=== PATIENT | male | born 1965 | race Caucasian/White ===

== ENCOUNTER 2018-02-17 19:43 | Emergency (ER) | payer SELFPAY ==
[2018-02-17 19:44] VITALS: BP 181/84; PULSE 104; RESP 22; TEMP 36.2; O2SAT 98; BMI 36.2
[2018-02-17 20:40] VITALS: BP 175/89; PULSE 94; RESP 18; O2SAT 97
--- NOTE | 2018-02-17 20:50 | RAD_ITS ---
STUDY: X-RAY CHEST REASON FOR EXAM: Male, 52 years old. Chest pain TECHNIQUE: AP portable COMPARISON: None. FINDINGS: Lungs are hyperinflated. There appear to be mild increase in interstitial markings at both lung bases. There is questionable nodule in the right upper lobe measuring 6 x 5 mm although this may represent bony density related to the overlying rib. There is no demonstrated pleural abnormality. Normal size heart. Normal mediastinum and tang. Normal visualized pulmonary arteries. Normal visualized aortic arch and descending thoracic aorta. Normal visualized thoracic spine. Normal visualized ribs, clavicles, and shoulders. There is no demonstrated abnormality of the visualized soft tissue structures of the upper abdomen. RAD/Chest 1 View (Portable) IMPRESSION: COPD. No acute cardiopulmonary pathology. Cannot exclude small subcentimeter nodule in right upper lobe versus rib lesion.. CT would be helpful for further assessment if clinically warranted Electronically Signed: Walter Daniels MD at 21:52 EDT , Service support ,
[2018-02-17] MEDS: Ipratropium/Albuterol Sulfate 3 ML AMPUL.NEB INHALATION (21:03)
[2018-02-17 21:04] LABS: Absolute Lymphocyte Count 2.26 X10^3/ul (0.83-4.51); Absolute Neutrophil Count 4.6 X10^3/uL (2.0-7.7); Basophil# 0.03 X10^3/uL; Basophil% 0.4 % (0-1); Eosinophil# 0.42 X10^3/uL; Eosinophils% 5.2 % (0-5); Hematocrit 47.5 % (40-54); Hemoglobin 15.6 g/dl (13.0-16.5); Lymphocyte # 2.26 X10^3/ul (4.0); Lymphocyte % 27.8 % (19-41); Mean Corp Hgb Conc 32.8 g/gl (32-36); Mean Corpuscular Volume 94.4 fL (80-94); Mean Platelet Vol. 11.8 fl (6.2-12.0); Monocyte# 0.78 X10^3/uL; Monocyte% 9.6 % (0-10); Neutrophil # 4.59 X10^3/uL (2.7-7.7); Neutrophil % 56.4 % (47-70); Platelet Count 216 K/mm3 (150-450); RBC Distribution Width CV 12.5 % (11.6-14.6); RBC Distribution Width SD 42.9 fl (35.1-43.9); Red Blood Count 5.03 M/mm3 (4.6-6.2); White Blood Count 8.1 K/mm3 (4.4-11.0)
[2018-02-17 21:05] LABS: POSITIVE COUNT NO; POSITIVE DIFFERENTIAL NO; POSITIVE MORPHOLOGY NO
[2018-02-17 21:06] VITALS: PULSE 96; RESP 14
[2018-02-17 21:10] VITALS: BP 169/92; PULSE 94; RESP 20; O2SAT 95
[2018-02-17] MEDS: 0.9% Normal Saline 1,000 ML 150 ML IV (21:10)
[2018-02-17 21:22] LABS: D-Dimer Quantitative (DVT/PE) 0.51 FEU/ug/m (0.27-0.49)
--- NOTE | 2018-02-17 21:24 | ED.RN ---
notified Dr. Villafana of elevated d-dimer
[2018-02-17 21:25] LABS: Anion Gap 9 (5-15); BUN 11 mg/dL (7-18); BUN/Creat Ratio 10.3 RATIO (10-20); Calcium,Total 9.3 mg/dL (8.5-10.1); Chloride 109 mmol/L (98-107); Creatinine, Serum 1.07 mg/dL (0.70-1.30); EST Glomerular Filtration Rate 77 mL/min (>60); Est Glom Filt Rate - Afr Amer 93 mL/min (>60); Estimated Creatinine Clearance 86.01 ml/min; Glucose 128 mg/dL (74-106); Potassium 4.1 mmol/L (3.5-5.1); Sodium Level 143 mmol/L (136-145)
[2018-02-17 22:02] LABS: BNP,B-Type NATRIURETIC PEPTIDE 5.3 pg/mL (0-100)
--- NOTE | 2018-02-17 22:25 | ED.VISSUMM ---
- ER Visit Summary Date of Service: 02/17/18 Chief Complaint: [Breath] History of Present Illness: The patient is a 52 M [presents to the emergency department complaint of shortness of breath that started 3 or 4 weeks ago. Patient states that he is waking up in the middle night feeling short of breath and he has to run outside to try to breathe. Patient has been having some chest discomfort that has been chronic and continuous in the left side of his chest that feels like soreness that he has had years. Patient complains of shortness of breath with activity and exertion. Patient also states that he has a history of sleep apnea but has claustrophobia and cannot tolerate the CPAP machine. Patient also has a brother that several months ago when he is been anxious due to that. Patient unable to sleep at night which makes him irritable. He does have a history of pulmonary hypertension. Patient currently does not see a primary care physician or extension service specialist in charge. Patient denies any fever or recent illness. He denies recent travel or surgery.] Physical Examination: [HEENT-PERRLA, EOMI. Cranial nerves II through XII grossly intact. TMs clear. Mucous membranes moist. No adenopathy. Cardiovascular-regular rate and rhythm without murmur or ectopy Lungs-clear to auscultation, chest wall stable without crepitus or subcu emphysema Abdomen-normoactive bowel sounds, soft, nontender, no rebound or rigidity, no peritoneal signs. Extremities-intact ?4, normal range of motion, normal pulses, atraumatic] Test Results: [EKG obtained arrival shows sinus rhythm with a ventricular rate of 93 bpm with no acute ST segment changes. CBC with differential showed a white count of 8.1, hemoglobin 15.6, hematocrit 47, platelets 216. Chemistries unremarkable. BUN was 11 and creatinine was 1.07. Troponin was less than 0.015. BNP was 5.3. D-dimer was 0.51 which is normal when corrected for age. Chest x-ray showed COPD and cannot exclude small subcentimeter nodule in the right lower upper lobe versus a rib lesion. CT would be helpful for further assessment if clinically warranted. Patient and I discussed obtaining a CT scan of his chest however he is refusing being that he is claustrophobic and does not want had a CT scan done at this time.] Emergency Department Course and Treatment: [I had a long discussion with patient and his . The believes that the patient's sleep apnea is the culprit of why he is waking up feeling short of breath and that he panics and runs out the door. Patient would like something for sleep. He does not want to be admitted at this time for further workup such as stress testing to evaluate further his exertional dyspnea. Patient understands I cannot completely rule out cardiac etiology for his symptomatology. My suspicion however is that his symptoms are related to sleep apnea and anxiety. Treatment Plan: [Patient will be given a prescription for Ativan as needed for anxiety. Patient will be given a referral to primary care physician.] Disposition: Discharged home in stable condition [] Impression: [Dyspnea Anxiety] This note was generated with Qello dictation software. It may contain incorrect words, spelling, and punctuation that were not noted in review of the chart prior to signing ED Disposition - Plan for ED Patient: Chief Complaint: Shortness of Breath Referrals: Care Physician,No Primary [Primary Care Provider] -
--- NOTE | 2018-02-17 22:29 | ED.DEP ---
ED Disposition - Plan for ED Patient: Chief Complaint: Shortness of Breath Instructions: ED Dyspnea Shortness of Breath, ED Stress React Prescriptions: Lorazepam [Ativan] 1 mg PO TID PRN #10 tab PRN Reason: Anxiety Referrals: Care Physician,No Primary [Primary Care Provider] - Ani Hartman MD [COURTESY STAFF PHYSICIAN] - 3-5 Days
[2018-02-17] MEDS: LORazepam 1 MG Tablet PO (22:45)
[2018-02-17 22:46] VITALS: BP 158/88; PULSE 82; RESP 18; O2SAT 97
--- NOTE | 2018-02-18 11:24 | CM.ED ---
ED CALLBACK: Follow-up call placed to patient with no answer. Voicemail left with return contact information.
== END 2018-02-17 22:48 | disposition home or self-care (01) ==
LOC: ED 21:05
PROVIDERS: Emergency Provider Emergency Medicine
DX: R06.02 Shortness of breath (principal); F41.9 Anxiety disorder, unspecified; I27.20 Pulmonary hypertension, unspecified; J44.9 Chronic obstructive pulmonary disease, unspecified; G47.30 Sleep apnea, unspecified; K21.9 Gastro-esophageal reflux disease without esophagitis; Z79.82 Long term (current) use of aspirin; Z72.0 Tobacco use
CPT/HCPCS: 71045; 80048; 83880; 84484; 85025; 85379; 93005; 94640; 96360; 99285; J7030; A4216

== ENCOUNTER → 2022-12-18 | Outpatient (CLI) | payer MEDICARE, SELFPAY ==
--- NOTE | 2022-12-18 18:31 | CT_ITS ---
STUDY: CTA CHEST REASON FOR EXAM: Male, 57 years old. ELEVATED D-DIMER 2.0 RULE OUT PE RADIATION DOSAGE (If Supplied By Facility): CTDIvol = ( 45.12 ) mGy, DLP = ( 791.47 ) mGycm TECHNIQUE: The examination was performed with the intravenous administration of IV 100mL Isovue-370. Post-processing of the angiographic images was performed, with multiplanar reformation and 3D reconstruction. Individualized dose optimization techniques were used for this CT. COMPARISON: Chest x-ray 12/16/2022 FINDINGS: Normal enhancement of the main pulmonary artery and right and left pulmonary arteries. Normal enhancement of the bilateral peripheral pulmonary arteries. There is no demonstrated pulmonary embolism. Normal thoracic aorta and visualized great vessels. There is no demonstrated aortic dissection. Normal heart and pericardium. Normal mediastinum. Normal hilar regions. Normal visualized trachea and bronchi. The lungs are well expanded. Mild emphysema with some subpleural scarring. No noncalcified nodule or mass. Normal pleura. Normal chest wall structures. Normal osseous structures. Normal visualized upper abdomen. CT/CTA Chest W/WO Contrast IMPRESSION: Normal CTA chest examination, without a demonstrated pulmonary embolism or arterial dissection. Mild emphysema without pneumonia, atelectasis, nodule, or mass per Electronically Signed: Tony Luz MD at 14:44 EDT ,
[2022-12-18 19:00] LABS: EGFR FINGERSTICK > 60.0000 mL/min (>60)
== END | disposition home or self-care (01) ==
PROVIDERS: PCP Nurse Practitioner Family; Referring Provider Nurse Practitioner Family; Visit Provider Nurse Practitioner Family
DX: R79.1 Abnormal coagulation profile (principal)
CPT/HCPCS: 71275; Q9967

== ENCOUNTER → 2023-01-01 | Outpatient (CLI) | payer MEDICARE, SELFPAY ==
--- NOTE | 2023-01-01 12:36 | ECHOD_ITS ---
Reason For Study: CHEST PAIN Procedure This was a 2D Doppler, Color Flow transthoracic echocardiogram. Exam performed in department. Left Ventricle Normal left ventricle. Mild concentric left ventricular hypertrophy. The left ventricular ejection fraction is 65 %. Right Ventricle Normal right ventricle. Atria The left atrium is mildly enlarged. Normal right atrium. Mitral Valve The mitral valve is structurally normal. No prolapse or stenosis seen. Tricuspid Valve Trivial tricuspid valve insufficiency. Normal pulmonary artery pressure. Aortic Valve Normal aortic valve. Pulmonic Valve The pulmonic valve is not well visualized. Great Vessels Normal sized aortic root. Pericardium/Pleural No pericardial effusion. MMode/2D Measurements & Calculations LVIDd: 4.3 cm IVSd: 1.2 cm Ao root diam: 3.5 cm LVIDs: 3.6 cm LVPWd: 1.0 cm FS: 17.6 % LAV(MOD-bp): 63.8 ml LVAd ap4: 31.0 cm2 SV(MOD-sp4): 57.9 ml LAV(MOD-bp) Indexed: 26.0 ml/m2 LVLd ap4: 8.4 cm LAV(MOD-sp2): 56.2 ml EDV(MOD-sp4): 94.1 ml LAV(MOD-sp4): 60.8 ml EDV(sp4-el): 97.0 ml LVAs ap4: 16.3 cm2 LVLs ap4: 6.6 cm ESV(MOD-sp4): 36.2 ml ESV(sp4-el): 34.4 ml EF(MOD-sp4): 61.5 % EF(sp4-el): 64.5 % SV(sp4-el): 62.6 ml LA A4 area: 21.5 cm2 LA dimension(2D): 4.0 cm RA A4 area: 14.8 cm2 Time Measurements MV dec time: 0.23 sec Doppler Measurements & Calculations MV E max franko: 61.3 cm/sec Lat Peak E' Franko: 11.0 cm/sec Med Peak E' Franko: 7.1 cm/sec MV A max franko: 80.7 cm/sec E/E' lat: 5.6 E/E' med: 8.6 MV E/A: 0.76 MV V2 max: 79.0 cm/sec Ao V2 max: 101.1 cm/sec MV max P.5 mmHg MV dec slope: 264.5 cm/sec2 Ao max P.1 mmHg MV V2 mean: 44.6 cm/sec Ao V2 mean: 70.4 cm/sec MV mean P.94 mmHg Ao mean P.3 mmHg MV V2 VTI: 21.2 cm Ao V2 VTI: 22.6 cm AV (velocity ratio): 0.99 LV V1 max: 100.3 cm/sec PA V2 max: 88.5 cm/sec TR max franko: 232.7 cm/sec LV V1 max P.0 mmHg PA V2 mean: 66.4 cm/sec TR max P.7 mmHg LV V1 mean P.0 mmHg LV V1 mean: 66.3 cm/sec LV V1 VTI: 22.3 cm ECHO/Echo Complete Interpretation Summary Mild concentric left ventricular hypertrophy. The left ventricular ejection fraction is 65 %. The left atrium is mildly enlarged. Ordering Physician: Sasha Jimenez Referring Physician: Sasha Jimenez Performed By: Dipti Estrella RCS
== END | disposition home or self-care (01) ==
LOC: CVS 12:36
PROVIDERS: PCP Nurse Practitioner Family; Referring Provider Nurse Practitioner Family; Visit Provider Nurse Practitioner Family
DX: R07.9 Chest pain, unspecified (principal)
CPT/HCPCS: 93306

== ENCOUNTER → 2023-03-05 | Outpatient (CLI) | payer MEDICARE, SELFPAY ==
--- NOTE | 2023-03-05 11:33 | STRESSREP ---
Stress Test Report Date: 03/05/2023 Procedure: Pharmacologic stress nuclear imaging study Indications: Chest pain Consent: Per the patient Procedure: The patient underwent pharmacologic (Regadenoson 0.4mg ) evaluation with a peak heart rate of 10 beats per minute (66%predicted maximal heart rate) and a peak blood pressure of 158/80 mmHg. The baseline ECG demonstrated sinus rhythm. The peak pharmacologic ECG demonstrated no ischemic change. There were no cardiac dysrhythmias pretest, during pharmacologic infusion, or recovery. There was no complaint of chest discomfort during pharmacologic infusion or recovery. The patient was injected with 14.8 millicuries of technetium 99m Cardiolite and subsequently rest SPECT Cardiolite nuclear imaging was obtained in the horizontal long, vertical long, and short axis views. The patient underwent pharmacologic (Regadenoson) evaluation. The patient was injected with 45.0 millicuries of technetium 99m Cardiolite and subsequently stress SPECT Cardiolite nuclear imaging was obtained in the horizontal long, vertical long, and short axis views. A gated Cardiolite study at peak stress was obtained. The examination was stopped secondary to completion of protocol. Rest and stress SPECT Cardiolite nuclear imaging status post realignment demonstrate decreased uptake in the inferior wall which actually appears better at stress. Likely diaphragmatic attenuation. There is end systolic thickening and brightening. The gated Cardiolite study demonstrates myocardial thickening and inward wall motion. The reported LVEF is 69%. Impression: 1. Pharmacologic (Regadenoson) evaluation 2. Peak pharmacologic ECG with no ischemic change. 3. There were no cardiac dysrhythmias pretest, during pharmacologic infusion, or recovery. 5. Rest and stress SPECT Cardiolite nuclear imaging demonstrate relative uniform tracer uptake and myocardial perfusion appearing within normal limits. 6. The gated Cardiolite study reports an LVEF of 69%. This note was generated with MessagePartyation software. It may contain incorrect words, spelling, and punctuation that were not noted in checking the note before signing.
== END | disposition home or self-care (01) ==
LOC: CVS 07:16
PROVIDERS: PCP Nurse Practitioner Family; Referring Provider Internal Medicine Cardiovascular Disease; Visit Provider Internal Medicine Cardiovascular Disease
DX: R07.9 Chest pain, unspecified (principal); I25.10 Atherosclerotic heart disease of native coronary artery without angina pectoris; R06.02 Shortness of breath; R53.83 Other fatigue
CPT/HCPCS: 78452; 93017; A9500; A4216; J2785

== ENCOUNTER 2023-04-08 11:56 | Observation (INO) | payer MEDICARE, SELFPAY ==
[2023-03-25 11:24] LABS: Hematocrit 50.8 % (40-54); Hemoglobin 17.1 g/dL (13.0-16.5); Mean Corp Hgb Conc 33.7 g/dL (32-36); Mean Corpuscular Hgb 32.2 pg (27.0-32.0); Mean Corpuscular Volume 95.7 fL (80-94); Platelet Count 168 K/mm3 (150-450); RBC Distribution Width CV 12.2 % (11.6-14.6); RBC Distribution Width SD 43.2 fl (35.1-43.9); Red Blood Count 5.31 M/mm3 (4.6-6.2); White Blood Count 7.3 K/mm3 (4.4-11.0)
[2023-03-25 11:31] LABS: Prothrombin Time (Protime)PT. 12.8 SECONDS (11.7-14.9)
[2023-03-25 11:32] LABS: Partial Thromboplast Time 36.5 Seconds (24.1-36.2)
[2023-03-25 12:02] LABS: Anion Gap 4 (5-15); BUN 5 mg/dL (7-18); BUN/Creat Ratio 5.8 RATIO (10-20); Calcium,Total 9.1 mg/dL (8.5-10.1); Chloride 107 mmol/L (98-107); Cholesterol 181 mg/dL (200); Creatinine, Serum 0.86 mg/dL (0.70-1.30); EST Glomerular Filtration Rate 97 mL/min (>60); Est Glom Filt Rate - Afr Amer 118 mL/min (>60); Glucose 129 mg/dL (74-106); High Density Lipoprotein 44 mg/dL; Potassium 4.9 mmol/L (3.5-5.1); Sodium Level 134 mmol/L (136-145); Triglycerides 73 mg/dL; Very Low Density Lipoprotein 15 mg/dL (5-40)
[2023-04-07 09:19] VITALS: BMI 40.7
[2023-04-08] VITALS (12 sets, daily range): BP systolic 97–154; BP diastolic 57–93; PULSE 65–71; RESP 16–18; TEMP 36.5–36.8; O2SAT 95–98
--- NOTE | 2023-04-08 12:01 | DCINST_ITS ---
Discharge Instructions Diet Discharge Diet: Low fat / Low cholesterol Activity Discharge Activity: Return to Normal Activity May resume sexual activity in: No Restrictions Dressing / Incision Call your doctor if your incision/area has: Continuous Slow Oozing, Sudden Increased Bleeding, Increased Pain/ Swelling, Increased Redness, Foul Smelling Discharge and Swelling at the incision site Call your doctor if you observe: Fever of 101 or Higher, Coldness, Increased Pain and Change in Color Follow Up Care Please Follow Up With: Conrad Feliz MD When: 2-4 weeks Test Results: Test results from this visit will be discussed in further detail at your follow- up appointment, if applicable. Discharge Plan Admission Attending Provider: Conrad Feliz Primary Care Provider: Sasha Jimenez Discharge Orders/Prescriptions Prescriptions: New atorvastatin 10 mg Tablet 10 mg PO QHS Qty: 60 3RF clopidogrel 75 mg Tablet 75 mg PO DAILY Qty: 60 6RF nitroglycerin 0.4 mg Tablet, Sublingual 0.4 mg sublingual Q5M PRN (Reason: Cardiac/Chest Pain) Qty: 15 3RF Continued trazodone 50 mg tablet 150 mg PO QHS PRN (Reason: insomnia) Patient Comments: take 3 tablet by mouth at bedtime if needed for sleep / insomnia buspirone 10 mg tablet 30 mg PO BID Patient Comments: take 2 tablets by mouth three times a day aspirin 81 mg tablet,delayed release (DR/EC) 81 mg PO DAILY amlodipine 10 mg tablet 10 mg PO DAILY Qty: 90 1RF metoprolol tartrate 50 mg tablet 50 mg PO BID Qty: 180 1RF losartan 50 mg tablet 50 mg PO DAILY Referrals / Follow Up: Sasha Jimenez NP-C [Primary Care Provider] - Disposition Disposition (needs filled in before D/C Order can be placed): Home, Self Care
--- NOTE | 2023-04-08 12:13 | CL.I_ITS ---
Patient Name: RICHARD OLIVEROS Study Date: 04/08/2023 Performing: Conrad Feliz MD Ht: 71 inches 180.34 cm : 1965 Wt: 292.4 lbs 132.45 kg Age: 57 Gender: male BSA: 2.48 PROCEDURE(S) PERFORMED DC02-(66129)LHC/COR IC12-(96757/[id number])BRIDGETTE W/WO PTCA, SINGLE CORONARY ARTERY IC10-(33431)FFR, CORONARY OR GRAFT, INITIAL VESSEL CLINICAL PROFILE AND CO-MORBIDITIES Indications: Suspected CAD Heart Failure: None CAD Presentations: Other: Dyspnea on exertion CONCLUSIONS 60% prox LAD (FFR 0.92) 80% Prox LCX 65% distal RCA Successful BRIDGETTE Prox LCX using Resolute [employer] [employer] 3.0x18 mm RECOMMENDATIONS ASA Indefinitley Plavix for at least 12 months DESCRIPTION OF PROCEDURE The patient arrived to the procedure lab. The risks and benefits of the procedure as well as a full description of our services here and lack of surgical backup were fully explained to the patient and/or their significant other prior to the catheterization. The Timeout was completed, verifying the correct patient and procedure. The patient's procedural site was prepped and draped in the usual fashion. Local anesthetic was given subcutaneously to right radial region with Lidocaine 2%. Using a modified Seldinger technique, arterial access was obtained via the right radial artery, a 6Fr sheath was inserted.. Left Coronary Artery selective angiography was performed in multiple views using a 5 Fr. 4.0 Bohannon catheter. Right Coronary Artery selective angiography was then performed in multiple views using a 5 Fr. 4.0 Bohannon catheterThe images were reviewed and options discussed. A decision was then made to proceed with an Intervention, IVUS or other adjunct procedure. XB 3.0 Guide catheter was inserted and engaged into the LCA. Angiogram performed pre balloon dilatation. runthrough Guide wire was advanced to the Circumflex. Resolute [employer] 3.0 x 18 Drug Eluting stent was advanced across the lesion in the circumflex, proximal. Angiogram performed post stent deployment. 3.0 x 12 NC Euphora Balloon catheter was inserted post stent. PTCA balloon inflated at 14 atms for 8 secs. Angiogram performed post balloon dilatation. The FFR/iFR wire was inserted. Pressures and FFR/iFR were then recorded. Adenosine was then given per protocol. Pressures and FFR/iFR were then recorded. FFR Ratio Baseline: .96 FFR Ratio post Adenosine: 0.925 The FFR/iFR wire was then removed. The arterial sheath was pulled and a TR Band was applied for hemostasis CORONARY ANGIOGRAPHY DOMINANCE: Right Dominant LEFT HEART ASSESSMENT LVEDP: 20 mmHg LEFT MAIN: Angiographically normal LEFT ANTERIOR DESCENDING ARTERY: LAD: Eccentric 60% Proximal lesion in LAD CIRCUMFLEX ARTERY: CIRCUMFLEX: Tubular 80% Proximal lesion in Circumflex RIGHT CORONARY ARTERY: RCA: Tubular 65% Distal lesion in RCA INTERVENTION INFORMATION LESION SITE: Circumflex (Proximal) Lesion Complexity: Non-High/Non-C, lesion length: 16 mm Pre Stenosis: 80 % Pre intervention KAT flow: 3 PROCEDURE: Drug Eluting Stent with post dilatation Post Stenosis: 0 % Post intervention KAT flow: 3 Lesion Devices: Cordis 6 Fr XB3.0 100cm Guide Catheter Terumo .014 180cm Runthrough Extra Floppy straight Medtronic Resolute Davi RX BRIDGETTE 3.0x18 Medtronic NC EUPHORA RX 3.0x12 BALLOON LESION SITE: LAD (Proximal) PROCEDURE: FFR Lesion Devices: Skemaz (volcano) Coronary FFR Wire COMPLICATIONS No Complications PROCEDURE MEDICATIONS Fentanyl 50 mcg IV Versed 1 mg IV Versed 2 mg IV Fentanyl 50 mcg IV Oxygen: 2 L/min via nasal cannula Brilinta 180 mg PO @ 04/08/2023 10:37:04 Heparin given IA 04/08/2023 10:00:38 Heparin 8000 unit(s) IV 04/08/2023 10:37:59 Nitro 200 mcg IC 04/08/2023 10:46:27 Nitro 200 mcg IC 04/08/2023 10:46:27 Verapamil 2.5mg, Ntg 200mcgs, 2000 units of Heparin given IA 04/08/2023 10:00:38 SUMMARY OF HEMODYNAMIC DATA Time AIR REST ECG 08:43:14 AO 150/79 (107) SA 10:25:54 LV 126/14, 24 10:40:30 LV 123/13, 21 10:40:32 LVp 122/9, 20 10:40:36 AOp 129/14 (55) 10:40:43 Signed By Conrad Feliz MD On 04/08/2023 12:12:05 Conrad Feliz MD
[2023-04-08] MEDS: 0.9% Normal Saline (1000mL) 1,000 ML 150 ML IV (12:39)
--- NOTE | 2023-04-08 12:45 | CPS ---
Pt has DENTON but is unable to wear any type of PAP mask therefore will not wear one here. RN in room & aware.
[2023-04-08 15:42] LABS: ACT Activated Clotting Time 329 sec (74-137)
[2023-04-08 15:44] LABS: ACT Activated Clotting Time 239 sec (74-137)
[2023-04-08] MEDS: Clopidogrel Bisulfate 300 MG Tablet PO (18:14)
[2023-04-08] MEDS: 0.9% Saline Lock 10 ML Syringe IV ×2 (18:15→19:27)
[2023-04-08] MEDS: Metoprolol Tartrate 50 MG Tablet PO (21:05)
[2023-04-08] MEDS: traZODone 50 MG Tablet 150 MG PO (21:05)
[2023-04-08] MEDS: busPIRone 15 MG TABLET 30 MG PO (21:05)
[2023-04-08] MEDS: Atorvastatin Calcium 10 MG Tablet PO (21:05)
[2023-04-09 00:22] VITALS: BP 146/61; PULSE 78; O2SAT 100
[2023-04-09 03:00] VITALS: BP 124/66; PULSE 66; RESP 16; TEMP 36.1; O2SAT 99
[2023-04-09 05:13] LABS: Hematocrit 44.8 % (40-54); Hemoglobin 15.3 g/dL (13.0-16.5); Mean Corp Hgb Conc 34.2 g/dL (32-36); Mean Corpuscular Hgb 32.7 pg (27.0-32.0); Mean Corpuscular Volume 95.7 fL (80-94); Mean Platelet Vol. 10.6 fl (6.2-12.0); Platelet Count 161 K/mm3 (150-450); RBC Distribution Width SD 41.8 fl (35.1-43.9); Red Blood Count 4.68 M/mm3 (4.6-6.2); White Blood Count 7.1 K/mm3 (4.4-11.0)
[2023-04-09 05:49] LABS: ALB/GLOB Ratio 0.9 RATIO (0.9-2.4); AST(SGOT) 23 U/L (15-37); Alanine Aminotransfer ALT/SGPT 54 U/L (16-61); Albumin, Serum 3.2 g/dL (3.2-5.0); Alkaline Phosphatase 38 U/L (45-117); Anion Gap 4 (5-15); BUN 9 mg/dL (7-18); BUN/Creat Ratio 11.2 RATIO (10-20); Calcium,Total 8.6 mg/dL (8.5-10.1); Chloride 109 mmol/L (98-107); EST Glomerular Filtration Rate 105 mL/min (>60); Est Glom Filt Rate - Afr Amer 127 mL/min (>60); Estimated Creatinine Clearance 108.51 ml/min; Globulin 3.5 g/dL (2.2-4.2); Glucose 130 mg/dL (74-106); Potassium 4.2 mmol/L (3.5-5.1); Protein, Total 6.7 g/dL (6.4-8.2); Sodium Level 138 mmol/L (136-145)
[2023-04-09 07:40] VITALS: O2SAT 94
[2023-04-09 09:12] VITALS: BP 149/89; PULSE 72; RESP 17; TEMP 36.7; O2SAT 99
[2023-04-09 09:17] VITALS: PULSE 72
[2023-04-09] MEDS: Clopidogrel Bisulfate 75 MG Tablet PO (09:17)
[2023-04-09] MEDS: Metoprolol Tartrate 50 MG Tablet PO (09:17)
[2023-04-09] MEDS: Losartan Potassium 50 MG Tablet PO (09:17)
[2023-04-09] MEDS: busPIRone 15 MG TABLET 30 MG PO (09:17)
[2023-04-09] MEDS: amLODIPine 10 MG Tablet PO (09:17)
[2023-04-09] MEDS: Aspirin E.C. 81 MG Tablet PO (09:17)
--- NOTE | 2023-04-09 10:52 | DCINST_ITS ---
Discharge Instructions Diet Discharge Diet: Low fat / Low cholesterol Activity May resume sexual activity in: No Restrictions Dressing / Incision Call your doctor if your incision/area has: Continuous Slow Oozing, Sudden Increased Bleeding, Increased Pain/ Swelling, Increased Redness, Foul Smelling Discharge and Swelling at the incision site Call your doctor if you observe: Fever of 101 or Higher, Coldness, Increased Pain and Change in Color Follow Up Care Please Follow Up With: Conrad Feliz MD When: 2-4 weeks Test Results: Test results from this visit will be discussed in further detail at your follow- up appointment, if applicable. Discharge Plan Admission Admit Date/Time: 04/08/23 11:56 Attending Provider: Conrad Feliz Primary Care Provider: Sasha Jimenez Discharge Orders/Prescriptions Prescriptions: New atorvastatin 10 mg Tablet 10 mg PO QHS Qty: 60 3RF clopidogrel 75 mg Tablet 75 mg PO DAILY Qty: 60 6RF nitroglycerin 0.4 mg Tablet, Sublingual 0.4 mg sublingual Q5M PRN (Reason: Cardiac/Chest Pain) Qty: 15 3RF Continued trazodone 50 mg tablet 150 mg PO QHS PRN (Reason: insomnia) Patient Comments: take 3 tablet by mouth at bedtime if needed for sleep / insomnia buspirone 10 mg tablet 30 mg PO BID Patient Comments: take 2 tablets by mouth three times a day aspirin 81 mg tablet,delayed release (DR/EC) 81 mg PO DAILY amlodipine 10 mg tablet 10 mg PO DAILY Qty: 90 1RF metoprolol tartrate 50 mg tablet 50 mg PO BID Qty: 180 1RF losartan 50 mg tablet 50 mg PO DAILY Referrals / Follow Up: Sasha Jimenez, HYDRO SPRAYER OPERATOR-C [Primary Care Provider] - Disposition Discharge Orders: Discharge Patient (Routine); Ordered 04/09/23 Ordered By: Dr. Conrad Feliz
--- NOTE | 2023-04-09 15:13 | CRPHASE1 ---
Patient Communication Patient Information Former Patient:: Phase I PHII Cardiac Rehab Discussed with Patient:: Yes Guide to Cardiac Rehab Given to Patient:: No Cardiac Rehab Facility Choice List Given to Patient:: No Communication to Cardiac Rehab [employer] Scoreboard Operator:: Conrad Feliz Sessions:: 36 sessions - 3 days/wk, 12 weeks Cardiac Rehabilitation Info Program Information Cardiac Rehabilitation Program Information: Cardiac Rehab The cardiac rehab team at [facility] consists of highly skilled exercise physiologists, nurses, respiratory therapists and physicians working together with you. Our purpose is to help you have a full recovery and achieve the goals you set for yourself. Over the years many of our patients have returned to activities they assumed they would never do again! We can help restore your confidence and motivation to make lifestyle changes that can have a significant impact on your health and quality of life! We can help answer questions and concerns you may have about exercise, lifestyle, medications, diet, stress and anxiety which are common following a hospitalization. WE monitor ECG and vital signs during exercise and discuss your progress with you and report to your physician(s). Cardiac Rehab is proven to help reduce readmissions, improve functional capacity and lower recurrence of problems with your heart. Our Cardiac Rehab program is Certified by the [place] [employer] Pulmonary [employer] (AACVPR) and Accredited by the [place] [employer] through our [facility]. You can contact us at . We invite you to call us with your questions or to get started in our program. If you have other questions or concerns be sure to ask your physician/provider during your follow-up visit. WE look forward to seeing you! Communication Note Communication with Client Communication Note: PT DENIES NEED FOR CARDIAC REHAB. PT STATES HE WILL REFUSE WHEN SECURITY CONTROLS ASSESSOR CALLS
--- NOTE | 2023-04-09 15:18 | CRPH1.INSTRU ---
General Education Discussed with Patient CAD and cardiac anatomy and function:: Patient communicates acknowledgment and Needs reinforcement Explanation of diagnoses and procedures:: Patient communicates acknowledgment and Needs reinforcement Sign/Symptoms of NM:: Patient communicates acknowledgment and Needs reinforcement Antiplatelet therapy: Patient communicates acknowledgment and Needs reinforcement Proper use of NTG-SL: Patient communicates acknowledgment and Needs reinforcement Emergency procedures and activation of EMS: Patient communicates acknowledgment and Needs reinforcement Compliance of all prescribed medications: Patient communicates acknowledgment and Needs reinforcement Smoking Risk Factors Patient Nicotine/Smoking Risk Factors Are:: Cigarettes, Cigars and Second-hand smoke Recommendations Recommendations Include:: Smoking cessation strategies/Smoking packet and Participation in a smoking cessation program (PT REFUSED) Response Code Nicotine/Smoking Response Code:: Patient communicates acknowledgment and Needs reinforcement Dyslipidemia Risk Factors Patient Dyslipidemia Risk Factors Are:: Total Cholesterol, Triglycerides and LDL Recommendations Recommendations Include:: Lipid profile not available, Reviewed NCEP/ATP guidelines and Therapeutic Lifestyle Change dietary guidelines Response Code Dyslipidemia Response Code:: Patient communicates acknowledgment and Needs reinforcement Overweight/Obesity Response Code Overweight/Obesity:: Patient communicates acknowledgment and Needs reinforcement Hypertension Recommendations Recommendations Include:: Maintain BP <130/85, BP <130/80 if diabetic, Decrease/maintain normal body weight and Moderation of ETOH Response Code Hypertension:: Patient communicates acknowledgment and Needs reinforcement Heart Disease Risk Factors Patient Heart Disease Risk Factors Are:: Family history of heart disease < 65 years old Recommendations Recommendations Include:: Educated family members of their risk Response Code Heart Disease Response Code:: Patient communicates acknowledgment and Needs reinforcement Diabetes Recommendations Recommendations Include:: Maintain fasting blood sugars 70-110 md/dL, Maintain HgbA1c of 6% or less and Decrease/maintain body weight Response Code Diabetes:: Patient communicates acknowledgment and Needs reinforcement Metabolic Syndrome Response Code Metabolic Syndrome Response Code:: Patient communicates acknowledgment and Needs reinforcement Sedentary Recommendations Recommendations Include:: Aerobic exercise 5-7 times/week for 20-30 minutes continuously Response Code Sedentary Response Code:: Patient communicates acknowledgment and Needs reinforcement Stress Risk Factors Patient Stress Risk Factors Are:: Patient denies stress as a risk factor Recommendations Recommendations Include:: Identification of stressors, and assessment of coping skills and Stress management techniques Response Code Stress Response Code:: Patient communicates acknowledgment and Needs reinforcement
== END 2023-04-09 10:00 | disposition home or self-care (01) ==
LOC: PCU 11:56 → CLSP 12:20 → PCU 12:20
PROVIDERS: Admitting Provider Internal Medicine Cardiovascular Disease; PCP Nurse Practitioner Family; Referring Provider Internal Medicine Cardiovascular Disease; Visit Provider Internal Medicine Cardiovascular Disease
DX: R06.02 Shortness of breath (principal); J44.9 Chronic obstructive pulmonary disease, unspecified; Z68.41 Body mass index [BMI] 40.0-44.9, adult; Z79.82 Long term (current) use of aspirin; Z79.899 Other long term (current) drug therapy; F17.210 Nicotine dependence, cigarettes, uncomplicated; I25.10 Atherosclerotic heart disease of native coronary artery without angina pectoris; I10 Essential (primary) hypertension; E66.9 Obesity, unspecified; G47.33 Obstructive sleep apnea (adult) (pediatric)
CPT/HCPCS: 36415; 80048; 80053; 80061; 85027; 85347; 85610; 85730; 92928; 93005; 93454; 93571; 96360; 96361; 99152; 99153; 99221; J0153; J7030; J7040; Q9967; A4216; C1725; C1769; C1874; C1887; C1894; C9600; G0378

== ENCOUNTER → 2023-08-16 | Outpatient (CLI) | payer MEDICARE, SELFPAY ==
[2023-08-16 11:39] LABS: AST(SGOT) 19 U/L (15-37); Alanine Aminotransfer ALT/SGPT 48 U/L (16-61); CPK Total, Creatine Kinase 66 U/L (39-308); Cholesterol 142 mg/dL (200); High Density Lipoprotein 52 mg/dL; Triglycerides 74 mg/dL; Very Low Density Lipoprotein 15 mg/dL (5-40)
== END | disposition home or self-care (01) ==
LOC: LAB 10:29
PROVIDERS: PCP Nurse Practitioner Family; Referring Provider Internal Medicine Cardiovascular Disease; Visit Provider Internal Medicine Cardiovascular Disease
DX: F10.20 Alcohol dependence, uncomplicated (principal); E78.5 Hyperlipidemia, unspecified; I25.10 Atherosclerotic heart disease of native coronary artery without angina pectoris; E66.9 Obesity, unspecified; F17.200 Nicotine dependence, unspecified, uncomplicated; R06.09 Other forms of dyspnea; Z95.5 Presence of coronary angioplasty implant and graft
CPT/HCPCS: 36415; 80061; 82550; 84450; 84460

== ENCOUNTER → 2023-08-31 | Outpatient (CLI) | payer MEDICARE, SELFPAY ==
--- NOTE | 2023-08-31 07:34 | CDU_ITS ---
Reason For Study: DIZZINESS Rt. Velocities/BP Lt. Velocities/BP Prox CCA 41.0/10.2 cm/sec. Prox CCA 60.4/14.2 cm/sec. Mid CCA 81.7/12.4 cm/sec. Mid CCA 63.9/16.0 cm/sec. Dist CCA 110.2/17.9 cm/sec. Dist CCA 63.1/17.7 cm/sec. Prox ICA 148.5/44.4 cm/sec. Prox ICA 101.6/27.0 cm/sec. Mid ICA 220.2/86.3 cm/sec. Mid ICA 95.1/29.2 cm/sec. Dist ICA 104.7/14.6 cm/sec. Dist ICA 81.9/20.4 cm/sec. Rt. ICA/CCA = 2.7. Lt. ICA/CCA = 1.6. Prox ECA 106.9/22.3 cm/sec. Prox ECA 244.4/32.6 cm/sec. Unable to visualize Rt Vert A. Lt. Vert. 26.4/10.7 cm/sec. Right Extracranial There is heterogeneous, irregular atherosclerotic plaque noted in the right common carotid artery. There is heterogeneous, irregular atherosclerotic plaque noted in the right internal carotid artery. There is heterogeneous, irregular atherosclerotic plaque noted in the right external carotid artery. The right vertebral artery could not be visualized. Left Extracranial There is heterogeneous, smooth atherosclerotic plaque noted in the left common carotid artery. There is heterogeneous, irregular atherosclerotic plaque noted in the left internal carotid artery. There is heterogeneous, irregular atherosclerotic plaque noted in the left external carotid artery. Antegrade flow is noted in the left vertebral artery. Procedure Carotid Duplex 39102. This is a Carotid Duplex examination using B-mode, color flow and specral Doppler. The exam was of poor technical quality due to Patient anatomy, Patient labored breathing.. The study was technically difficult. Exam performed in department. VL/Carotid Duplex Ultrasound Interpretation Summary Moderate (50-69%) stenosis right extracranial internal carotid. Mild (<50%) stenosis left extracranial internal carotid. The Right vertebral artery is not visualized The Left vertebral is patent and antegrade. Ordering Physician: Ama Bush Referring Physician: Sasha Jimenez Performed By: Erasmo Sepulveda RVT
--- OUTSIDE RECORDS SUMMARY | 2023-08-31 07:37 | XMS RPT_ITS | CCD ---
Author Name Unknown Address [address] [place] [address] Organization [facility] Team Providers Care Manager Talent Management Name Role Phone Tanja Bell Unavailable Marcy Menard Unavailable Unavailable Unavailable Unavailable Tanja Bell Unavailable Selwyn Uribe Unavailable Unavailable Unavailable Karthik Kimble Unavailable Unavailable Karthik Kimble Unavailable Unavailable Tammy Mathis Unavailable Unavailable Karthik Herzog Unavailable Unavailable Duane Leach Unavailable [facility] Unavailabl e CiTanja capone CNP E Unavailable Duane Leach Unavailable [facility] Unavailabl e Selwyn Uribe Unavailable Karthik Herzog LPN Unavailable Unavailable Unavailable Unavailable Tanja Bell Unavailable Mateo Escobar Unavailable Tanja Bell Unavailable PHYSICIAN, NOT RECORDED Primary Care Physician U navailable Gunjan Parisi CNP Unavailable Gunjan Parisi CNP Unavailable Maikel Amor Unavailable Del MILLER Tammy Unavailable Unavailable Arabella Tanja Unavailable Magdalena Han MA Unavailable Unavailable Gunjan Parisi CNP Attending Unavailable Gunjan Parisi CNP Referring Unavailable Gunjan Parisi CNP Consulting Unavailable Yohana Welsh LPN Unavailable Unavailable Ms. Camille Parisiyn E Attending Kushal Parisi, Ms. Baez E Primary Care Kushal PARISI ESTHETICS INSTRUCTOR-GINA, GUNJAN Primary Care Physician ALVARO SELLERS, OG Attending Unavailable PHYSICIAN, NOT RECORDED Primary Care Unavaila philip JOHN DO, OG Attending Unavailable PHYSICIAN, NOT RECORDED Primary Care Unavaila philip MATOS DO, DR MARJAN Caballero Attending Unavailable PHYSICIAN, NOT RECORDED Primary Care UnavailTOBIN Martínez MD Attending Unavailable PHYSICIAN, NOT RECORDED Primary Care Unavailjuan david PARISI ESTHETICS INSTRUCTOR-CATTLE KNOCKER, GUNJAN Primary Care Unavail able [facility] Lucas DO Attending Unavailable Medications Current Medications Medication Drug Class(es) Dates Sig (Normalized) Sig (Original) [id number] 200 actuat albuterol 0.09 mg/actuat metered dose inhaler (20 sources) beta2-Adrenergic Agonist Start: 12-20-2020 take 2 puff(s) by inhalation every four hours as needed for wheezing ProAir HFA MDI (90 mcg/inh) inhalation aerosol 2 puff(s), Inhalation, q4h, PRN as needed for wheezing, # 8.5 gram(s), 0 Refill(s), Chest pain Start Date: 12/20/20 Status: Ordered Completed/Discontinued Medications Medication Drug Class(es) Dates Sig (Normalized) Sig (Original) acetaminophen 325 mg / HYDROcodone bitartrate 5 mg oral tablet (7 sources) Opioid Agonist Start: 08-09-2022 End: 08-12-2022 take 1 tablet by mouth every six hours as needed for pain [place] 325- 5 mg oral tablet Dose = 1 tab(s), Oral, q6h, PRN as needed for pain, # 12 tab(s), 0 Refill(s), Leg pain, 131.8 Start Date: 08/09/22 Stop Date: 08/12/22 Status: Ordered Problems Active Problems Problem Classification Problem Date Documented Da te Episodic/Chronic Alcohol-related disorders (20 sources) Alcohol dependence; Translations: [EtOH dependence] 02-17-2022 Chronic Past or Other Problems Problem Classification Problem Date Documented Da te Episodic/Chronic Headache; including migraine (12 sources) Headache; including migraine Other connective tissue disease (4 sources) Pain in right hand; Translations: [Hand pain, right] 07-29-2020 Other lower respiratory disease (12 sources) H/O: respiratory disease; Translations: [Sleep Apnea] 02-23-2018 Episodic Unclassified (20 sources) Unspecified Diagnosis 06-29-2018 Unclassified (20 sources) Hand pain, right Unclassified (8 sources) Hemorrhoid Results Test Name Value Interpretation Reference Range Facil ity Vital Signs Date Time Vital Sign Value Performing Clinician Facility 01-24-2023 16:33-0400 Blood Pressure Cuff Size CATHERINE JARVIS DO [facility] 01-24-2023 16:33-0400 Blood Pressure Location CATHERINE JARVIS DO [facility] 01-24-2023 16:33-0400 Blood Pressure Method CATHERINE JARVIS DO [facility] 01-24-2023 16:33-0400 Body temperature 98.96 [degF] CATHERINE JARVIS DO [facility] 01-24-2023 16:33-0400 Diastolic Blood Pressure Non-Invasive 88 1 CATHERINE JARVIS DO [facility] 01-24-2023 16:33-0400 Heart rate 95 /min CATHERINE JARVIS DO [facility] 01-24-2023 16:33-0400 Reason For Taking VItal Signs CATHERINE JARVIS DO [facility] 01-24-2023 16:33-0400 Systolic Blood Pressure Non-Invasive 138 1 CATHERINE JARVIS DO [facility] 12-16-2022 11:28-0400 Body height 179.07 cm Tammy Mathis LPN [facility] Work Phone: 12-16-2022 11:28-0400 Body mass index (BMI) [Ratio] 41.02 kg/m2 Tammy Mathis LPN [facility] Work Phone: 12-16-2022 11:28-0400 Body surface area Derived from formula 2.46 m2 Tammy Mathis LPN [facility] Work Phone: 12-16-2022 11:28-0400 Body temperature 98.2 [degF] Tammy Mathis LPN [facility] Work Phone: Encounters Encounter Date Encounter Type Care Provider Facility Start: 02-26-2023 Review Gunjan Parisi CNP Work Phone: [facility] Start: 01-24-2023 End: 01-24-2023 Emergency department patient visit GUNJAN DEL RIO Facility:B Start: 01-24-2023 End: 01-24-2023 Emergency department patient visit CATHERINE JARVIS DO [facility] Start: 01-08-2023 ambulatory Ms. Gunjan Greene Tony Raghu cility:[id number] Start: 12-18-2022 End: 12-18-2022 Patient encounter procedure Gunjan Parisi CNP Work Phone: [facility] Start: 12-17-2022 Review Gunjan Parisi CNP Work Phone: [facility] Start: 12-17-2022 End: 12-17-2022 Annotation/Addendum Gunjan Parisi CNP Work Phone: [facility] Start: 12-16-2022 End: 12-17-2022 Office outpatient visit 25 minutes Gunjan Parisi CNP Work Phone: [facility] Start: 12-16-2022 Review Gunjan Parisi CNP Work Phone: [facility] Start: 08-10-2022 End: 08-11-2022 ambulatory NIDAL CHOUJAA DO Facility:B Start: 08-10-2022 End: 08-10-2022 Patient encounter procedure NIDAL CHOUJAA DO [facility] Start: 08-09-2022 End: 08-09-2022 Emergency department patient visit TOBIN CORLEY MD Facility:B Start: 08-09-2022 End: 08-09-2022 Emergency department patient visit TOBIN CORLEY MD [facility] Start: 07-29-2022 Review Gunjan Parisi CNP Work Phone: [facility] Start: 07-24-2022 ambulatory Gunjan Parisi CNP [facility] Start: 07-24-2022 End: 07-29-2022 Office outpatient visit 25 minutes Gunjan Parisi CNP Work Phone: [facility] Start: 07-24-2022 Review Gunjan Parisi CNP Work Phone: [facility] Start: 04-03-2022 End: 04-03-2022 Patient encounter procedure Gunjan Parisi CNP Work Phone: [facility] Start: 03-20-2022 End: 03-25-2022 Office outpatient visit 25 minutes Gunjan Parisi CNP Work Phone: [facility] Start: 02-15-2022 End: 02-15-2022 Emergency department patient visit DR MARJAN MATOS DO Facility:B Start: 02-15-2022 End: 02-15-2022 Emergency department patient visit DR MARJAN MATOS DO [facility] Start: 02-13-2022 End: 02-17-2022 Office outpatient visit 40 minutes Gunjan Parisi CNP Work Phone: [facility] Start: 02-13-2022 Review Tanja Bell Work Phone: [facility] Start: 10-10-2021 End: 10-10-2021 Office outpatient visit 15 minutes Tanja Bell Work Phone: [facility] Start: 07-29-2020 End: 07-29-2020 Annotation/Addendum Tanja Bell [facility] Start: 07-26-2020 End: 07-26-2020 Office outpatient visit 15 minutes Tanja Bell [facility] Start: 03-19-2020 End: 03-19-2020 Annotation/Addendum Tanja Bell [facility] Start: 02-28-2020 End: 02-28-2020 Annotation/Addendum Tanja Bell [facility] Start: 04-17-2019 End: 04-17-2019 Office outpatient visit 15 minutes Tanja Bell [facility] Start: 04-17-2019 Review Tanja Cedillo [facility] Start: 02-10-2019 End: 02-10-2019 Office outpatient visit 15 minutes Tanja Bell [facility] Start: 01-11-2019 End: 01-11-2019 Annotation/Addendum Tanja Bell [facility] Start: 12-05-2018 Review Tanja Cedillo [facility] Start: 06-29-2018 End: 06-29-2018 Annotation/Addendum Tanja Bell [facility] Start: 03-09-2018 End: 03-09-2018 Annotation/Addendum Tanja Bell [facility] Start: 02-23-2018 End: 02-23-2018 Office outpatient visit 25 minutes Tanja Arabella [facility] Procedures Date Procedure Procedure Detail Performing Clinician Start: 03-24-2023 End: 03-24-2023 Cardiology Visit Report Procedure Note: See Note; NOTES: [facility] [address] [place] [address] OFFICE VISIT Date of Service: 03/24/23 MR#: [id number] Acct: [id number] Name: BOLA MA Rep #: [id number] : 1965 Provider: Dr. Conrad Feliz MD Age/Sex: 57/M Location: [facility] Status: Signed [facility] History of Present Illness Details: The patient has had a stress test done. It was negative for ischemia. He however continues to have shortness of breath with exertion. Denies orthopnea or PND. Unfortunately he continues to smoke. Intake Vital Signs 02/16/23 09:51 03/24/23 13:11 Height 5 ft 11 in 5 ft 11 in Weight: 292 lb 290 lb BMI 40.7 40.4 BP 160/91 H 147/91 H Blood Pressure Location Lt brachial Lt brachial Position Sitting Sitting Respiration 18 18 Pulse 90 85 Pulse Source Monitor Auscultation Intake Visit Reasons: 4 week fu Cutter Hot Knife Required: No Accompanied by: Is patient in pain?: No Allergies No Known Allergies Allergy (Verified 03/24/23 13:12) Medications losartan 50 mg tablet 75 mg PO DAILY 02/08/23 [History Confirmed 03/24/23] trazodone 50 mg tablet 150 mg PO QHS PRN insomnia 02/08/23 [History Confirmed 03/24/23] amlodipine 5 mg tablet 5 mg PO DAILY #30 tabs 02/16/23 [Rx Confirmed 03/24/23] aspirin 81 mg tablet,delayed release 81 mg PO DAILY 02/16/23 [History Confirmed 03/24/23] buspirone 10 mg tablet 30 mg PO BID 02/16/23 [History Confirmed 03/24/23] metoprolol tartrate 25 mg tablet 25 mg PO BID #60 tabs 02/16/23 [Rx Confirmed 03/24/23] Ejection fraction %: 65 to 70 PFSH Medical History Anxiety Appetite loss BMI 40.0-44.9, adult Chest pain COPD (chronic obstructive pulmonary disease) Elevated liver function tests Essential hypertension EtOH dependence Fatigue Heartburn Insomnia Nocturnal hypoxemia Pulmonary hypertension Right hand pain Sleep apnea 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] SOB (shortness of breath) Syncope and collapse Tobacco dependence Vitamin D deficiency Surgical History Hx of cardiac catheterization ( 06/13/13) Hx of plastic surgery Family History Mother Diabetes Heart disease Sister Pulmonary hypertension Father Cancer stomach Heart disease Social History Smoking Status: Current every day smoker tobacco type: cigarettes alcohol intake: current alcohol intake frequency: 3 or more drinks per day Alcohol type: beer details: 12 beer substance use type: does not use caffeine: No ROS Const Const: Positive for fatigue and difficulty sleeping; Negative for weakness, headache(s), frequent falls or excessive sweating Eyes Eyes: Negative for loss of peripheral vision, transient loss of vision, blurry vision, double vision or tunnel vision ENT ENT: Negative for headache(s), dizziness, Nosebleed/epistaxis or balance problems Cardio Chest Pain: No Palpitations: No Edema: None Muscle aches with walking: None Resp Respiratory: Positive for SOB with activity, SOB at rest and SOB orthopnea SOB lying down; Negative for Cough or paroxysmal nocturnal dyspnea GI GI: Positive for heartburn; Negative nausea, vomiting or black,tarry stools : Negative for hematuria Musc Musc: Negative for muscle aches/ myalgia, muscle weakness, joint pain or balance problems Skin Skin: Negative non-healing lesions, rash or unusual bruising Neuro Neuro: Positive for lightheadedness; Negative for dizziness, near syncope, syncope, frequent falls, headache(s), weakness, blurry vision, double vision or lack of coordination Bj Hematologic/Lymphatic: Negative for easy bleeding or easy bruising Endo Endo: Positive for fatigue; Negative for excessive sweating or increased thirst/drinking Psych Psych: Negative for anxiety or depression Allergy Allergy/Immunology: Negative for hives and Negative for rash Cardiology Exam Const Appearance: comfortable and no acute distress Nutritional Appearance: obese Neck Neck: no JVD Carotids: Negative bruit Chest Auscultation: Bilateral: Clear to Auscultation Cardio Rate: regular rate Rhythm: regular rhythm Heart sounds: S1 normal and S2 normal GI GI: obese Neuro General: patient alert, patient awake and patient oriented x3 Extremities Lower Extremity Edema: None: Bilateral Supplemental Info Supplemental Information CT Cardiac Score 01/08/23: The score and distribution of calcium in the coronary arteries is as follows: LM: 0 LAD: 276.3 LCx: 0 RCA: 237.4 TOTAL: 513.7 The visualized segments of the lungs are normally expanded. Diffuse bronchial wall thickening. Mild patchy bibasilar infiltrates and/or atelectasis. The visualized mid/lower ascending thoracic aorta measures 3.7 cm in diameter. Visualized thoracic aorta is atherosclerotic. The heart is normal in size. No pericardial effusion is present. Some calcified subcarinal and hilar nodes bilaterally likely sequela of granulomatous disease. Mildly prominent nonspecific mediastinal nodes elsewhere for example up to 9mm short axis subcarinal region. Small hiatal hernia. Fatty liver. Echocardiogram 01/01/23: Interpretation Summary Mild concentric left ventricular hypertrophy. The left ventricular ejection fraction is 65 %. The left atrium is mildly enlarged. Cardiac Catheterization 06/13/13: IMPRESSION 1. 20% to 30% mid and distal right coronary artery. 2. 20% distal left main. 3. 20% circumflex. 4. Normal left ventricular function. 5. Pulmonary hypertension; pulmonary artery pressure of 45. 6. Increased stroke volume resistance at 1300. Stress Test 03/05/23: IMPRESSION: 1. Pharmacologic (Regadenoson) evaluation 2. Peak pharmacologic ECG with no ischemic change. 3. There were no cardiac dysrhythmias pretest, during pharmacologic infusion, or recovery. 5. Rest and stress SPECT Cardiolite nuclear imaging demonstrate relative uniform tracer uptake and myocardial perfusion appearing within normal limits. 6. The gated Cardiolite study reports an LVEF of 69%. STRESS TEST 05/16/13: CONCLUSION Lexiscan stress test showing good physiologic response to Lexiscan. There were no untoward side effects. The patient had nonspecific ST changes in response to Lexiscan. There were no Lexiscan induced arrhythmias noted. Awaiting nuclear images. Conclusion: Spect Cardiolite stress test showing 1. Small inferior wall scar with no reversible ischemia noted. 2. Normal wall motion with calculated ejection fraction at 55%. Labs: No Data to Display Diagnostics: Electrocardiogram Echocardiogram Stress Test Stress Test Nuclear Medicine Chest X-Ray Chest CTA Pulmonary: Pulmonary Exercise Test Past Visits: Cardiology Visit 03/24/23 Assessment and Plan Assessment and Plan (1) Dyspnea on exertion: Status: Chronic Plan: Even though the stress test is negative for ischemia, patient continues to have symptoms. His coronary calcium score was very high. I therefore recommended coronary angiography for definitive diagnosis and possible revascularization. Risks benefits and alternatives discussed. He understand these and wishes to proceed. (2) Coronary artery disease: Status: Chronic Plan: See #1 above. Check lipid profile. (3) Essential hypertension: Status: Chronic Plan: Blood pressure above goal. Increase metoprolol to 50 mg twice daily. Increase amlodipine to 10 mg daily. (4) Obesity: Status: Chronic Plan: Lose weight. Patient counseled. (5) Nicotine dependence: Status: Chronic Plan: Counseled to quit smoking. (6) Sleep apnea: Status: Chronic Plan: As per PCP/sleep medicine. Plan Details Follow Up: 8 Weeks Coding Level of Care Code Off vis,est,level 4 Diagnoses Dyspnea on exertion R06.09 Coronary artery disease I25.10 Essential hypertension I10 Obesity E66.9 Nicotine dependence F17.200 Sleep apnea G47.30 Coding Level of Care Code Off vis,est,level 4 Diagnoses Dyspnea on exertion R06.09 Coronary artery disease I25.10 Essential hypertension I10 Obesity E66.9 Nicotine dependence F17.200 Sleep apnea G47.30 03/24/23 1338 <Electronically signed by Conrad Feliz MD> Date Conrad Feliz MD Cosigner Signature: Date (if applicable) CC: RISSA Parisi [facility] Work Phone: Start: 03-05-2023 End: 03-05-2023 Stress Report Procedure Note: See Note; NOTES: [facility] [address] [place] [address] MR#: [id number] Acct: [id number] Name: BOLA MA Rep #: [id number] : 1965 57 From: Conrad Feliz MD Primary Care: RISSA Pablo Status: REG CLI Referring Dr: Conrad Feliz MD Sex: M C Stress Test Report Date: 03/05/2023 Procedure: Pharmacologic stress nuclear imaging study Indications: Chest pain Consent: Per the patient Procedure: The patient underwent pharmacologic (Regadenoson 0.4mg ) evaluation with a peak heart rate of 10 beats per minute (66%predicted maximal heart rate) and a peak blood pressure of 158/80 mmHg. The baseline ECG demonstrated sinus rhythm. The peak pharmacologic ECG demonstrated no ischemic change. There were no cardiac dysrhythmias pretest, during pharmacologic infusion, or recovery. There was no complaint of chest discomfort during pharmacologic infusion or recovery. The patient was injected with 14.8 millicuries of technetium 99m Cardiolite and subsequently rest SPECT Cardiolite nuclear imaging was obtained in the horizontal long, vertical long, and short axis views. The patient underwent pharmacologic (Regadenoson) evaluation. The patient was injected with 45.0 millicuries of technetium 99m Cardiolite and subsequently stress SPECT Cardiolite nuclear imaging was obtained in the horizontal long, vertical long, and short axis views. A gated Cardiolite study at peak stress was obtained. The examination was stopped secondary to completion of protocol. Rest and stress SPECT Cardiolite nuclear imaging status post realignment demonstrate decreased uptake in the inferior wall which actually appears better at stress. Likely diaphragmatic attenuation. There is end systolic thickening and brightening. The gated Cardiolite study demonstrates myocardial thickening and inward wall motion. The reported LVEF is 69%. Impression: 1. Pharmacologic (Regadenoson) evaluation 2. Peak pharmacologic ECG with no ischemic change. 3. There were no cardiac dysrhythmias pretest, during pharmacologic infusion, or recovery. 5. Rest and stress SPECT Cardiolite nuclear imaging demonstrate relative uniform tracer uptake and myocardial perfusion appearing within normal limits. 6. The gated Cardiolite study reports an LVEF of 69%. This note was generated with SoothEase software. It may contain incorrect words, spelling, and punctuation that were not noted in checking the note before signing. 03/05/23 1136 <Electronically signed by Conrad Feliz MD> Date Conrad Feliz MD CC: BALL RACKER-C Gunjan Parisi; Dr. Conrad Feliz MD Date Dictated: 03/05/231132 Date Transcribed: 03/05/231132 Nonprofit Financial Controller: TATA Parisi [facility] Work Phone: Start: 02-16-2023 End: 02-24-2023 12 Lead EKG performed by [facility] Procedure Note: See Note; NOTES: [id number] [place] [address] 12 Lead EKG performed by [facility] 02/16/23 1003 MR#: [id number] Acct: [id number] Name: LYNNEPreciousBOLA Rep #: [id number] : 1965 57 From: Conrad Feliz MD Attending Dr: Dr. Conrad Feliz MD Status: DEP [facility] Ordering Dr: Conrad Feliz MD Date: 02/16/23 Location: [facility] Sex: M C Admitted: [facility]/12 Lead EKG performed by [facility] Sinus Rhythm WITHIN NORMAL LIMITS 02/16/23 1130 <Electronically signed by Conrad Feliz MD> Date Conrad Feliz MD CC: BALL RACKER-C Gunjan Parisi Date Dictated: 02/16/23 1003 Date Transcribed: 02/16/23 100 Nonprofit Financial Controller: TATA Signed Gunjan Parisi [employer] Work Phone: Start: 02-16-2023 End: 02-16-2023 Cardiology Visit Report Procedure Note: See Note; NOTES: [facility] [place] [address] OFFICE VISIT Date of Service: 02/16/23 MR#: [id number] Acct: [id number] Name: BOLA MA Rep #: [id number] : 1965 Provider: Dr. Conrad Feliz MD Age/Sex: 57/M Location: [facility] Status: Signed [facility] History of Present Illness Details: This gentleman has past medical history significant for hypertension and nicotine dependence. For the past few months, he has been having anterior chest pressure. According to him, it is constant. However exertion exacerbates it. Sometimes he gets shooting pains across his chest. Denies orthopnea. No ankle edema. No palpitations. Patient had coronary angiography done in 2012 which revealed 20 to 30% RCA disease. Recently he has had coronary calcium scoring. His calcium score was noted to be 513. Intake Vital Signs 02/17/18 19:44 02/16/23 09:51 Height 5 ft 11 in 5 ft 11 in Weight: 292 lb BMI 40.7 BP 160/91 H Blood Pressure Location Lt brachial Position Sitting Respiration 18 Pulse 90 Pulse Source Monitor Intake Visit Reasons: ELDER DUNCAN) Cutter Hot Knife Required: No Accompanied by: Is patient in pain?: Yes (chest pain) Allergies No Known Allergies Allergy (Verified 02/16/23 09:53) Medications losartan 50 mg tablet 75 mg PO DAILY 02/08/23 [History Confirmed 02/16/23] trazodone 50 mg tablet 150 mg PO QHS PRN insomnia 02/08/23 [History Confirmed 02/16/23] buspirone 10 mg tablet 30 mg PO BID 02/16/23 [History Confirmed 02/16/23] Ejection fraction %: 65 to 70 PFSH Medical History (Updated 02/16/23 @ 10:[address] Conrad Feliz MD) Anxiety Appetite loss BMI 40.0-44.9, adult Chest pain COPD (chronic obstructive pulmonary disease) Elevated liver function tests Essential hypertension EtOH dependence Fatigue Heartburn Insomnia Nocturnal hypoxemia Pulmonary hypertension Right hand pain Sleep apnea 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] SOB (shortness of breath) Syncope and collapse Tobacco dependence Vitamin D deficiency Surgical History Hx of cardiac catheterization ( 06/13/13) Hx of plastic surgery Family History Mother Diabetes Heart disease Sister Pulmonary hypertension Father Cancer stomach Heart disease Social History Smoking Status: Current every day smoker tobacco type: cigarettes Smoking packs per day: 1 Smoking cigarettes per day: 20.0 alcohol intake: current alcohol intake frequency: 3 or more drinks per day Alcohol type: beer details: 12 beer substance use type: does not use caffeine: No ROS Const Const: Positive for fatigue and difficulty sleeping; Negative for weakness, headache(s), frequent falls or excessive sweating Eyes Eyes: Negative for loss of peripheral vision, transient loss of vision, blurry vision, double vision or tunnel vision ENT ENT: Positive for dizziness and balance problems (knees); Negative for headache(s) or Nosebleed/epistaxis Cardio Chest Pain: Yes Frequency: daily Character: sharp and tightness Onset: at rest Location: left chest and other (back, neck, jaw lock up, left arm) Duration: continuous ( like a tooth ache ) Exacerbation: exercise Palpitations: Yes feels like its: fast Edema: Right Muscle aches with walking: None Resp Respiratory: Positive for SOB with activity, SOB at rest and SOB orthopnea SOB lying down; Negative for Cough or paroxysmal nocturnal dyspnea GI GI: Positive for nausea and heartburn; Negative vomiting or black,tarry stools : Negative for hematuria Musc Musc: Positive for balance problems (knees); Negative for muscle aches/ myalgia, muscle weakness or joint pain Skin Skin: Negative non-healing lesions, rash or unusual bruising Neuro Neuro: Positive for dizziness, lightheadedness and near syncope; Negative for syncope, frequent falls, headache(s), weakness, blurry vision, double vision or lack of coordination Bj Hematologic/Lymphatic: Negative for easy bleeding or easy bruising Endo Endo: Positive for fatigue; Negative for excessive sweating or increased thirst/drinking Psych Psych: Positive for anxiety; Negative for depression Allergy Allergy/Immunology: Negative for hives and Negative for rash Cardiology Exam Const Appearance: comfortable and no acute distress Nutritional Appearance: obese Neck Neck: no JVD Carotids: Negative bruit Chest Auscultation: Bilateral: Clear to Auscultation Cardio Rate: regular rate Rhythm: regular rhythm Heart sounds: S1 normal and S2 normal GI GI: obese Neuro General: patient alert, patient awake and patient oriented x3 Extremities Lower Extremity Edema: None: Bilateral Supplemental Info Supplemental Information CT Cardiac Score 01/08/23: The score and distribution of calcium in the coronary arteries is as follows: LM: 0 LAD: 276.3 LCx: 0 RCA: 237.4 TOTAL: 513.7 The visualized segments of the lungs are normally expanded. Diffuse bronchial wall thickening. Mild patchy bibasilar infiltrates and/or atelectasis. The visualized mid/lower ascending thoracic aorta measures 3.7 cm in diameter. Visualized thoracic aorta is atherosclerotic. The heart is normal in size. No pericardial effusion is present. Some calcified subcarinal and hilar nodes bilaterally likely sequela of granulomatous disease. Mildly prominent nonspecific mediastinal nodes elsewhere for example up to 9mm short axis subcarinal region. Small hiatal hernia. Fatty liver. Echocardiogram 01/01/23: Interpretation Summary Mild concentric left ventricular hypertrophy. The left ventricular ejection fraction is 65 %. The left atrium is mildly enlarged. Cardiac Catheterization 06/13/13: IMPRESSION 1. 20% to 30% mid and distal right coronary artery. 2. 20% distal left main. 3. 20% circumflex. 4. Normal left ventricular function. 5. Pulmonary hypertension; pulmonary artery pressure of 45. 6. Increased stroke volume resistance at 1300. STRESS TEST 05/16/23: CONCLUSION Lexiscan stress test showing good physiologic response to Lexiscan. There were no untoward side effects. The patient had nonspecific ST changes in response to Lexiscan. There were no Lexiscan induced arrhythmias noted. Awaiting nuclear images. Conclusion: Spect Cardiolite stress test showing 1. Small inferior wall scar with no reversible ischemia noted. 2. Normal wall motion with calculated ejection fraction at 55%. Labs: No Data to Display Diagnostics: Electrocardiogram Echocardiogram Chest X-Ray Chest CTA Pulmonary: Pulmonary Exercise Test Past Visits: Cardiology Visit 02/16/23 Assessment and Plan Assessment and Plan (1) Chest pain: Status: Chronic Plan: Typical and atypical features however with his coronary artery disease, consider angina pectoris. Start enteric-coated aspirin 81 mg daily. Start metoprolol 25 mg twice daily. Amlodipine 5 mg once daily. Check Lexiscan stress Myoview to evaluate physiological significance of his coronary artery disease. Discussed with patient in detail. It was emphasized that if his symptoms get worse or if he started getting rest discomfort, then he is to let us know. If the symptoms do not get better with medical therapy, then we will consider cardiac catheterization with coronary angiography. Lipid management as per primary care physician. (2) Coronary artery disease: Status: Chronic Plan: Elevated coronary calcium score. 20 to 30% RCA disease noted in 2013. See #1 above. (3) Essential hypertension: Status: Chronic Plan: Blood pressure above goal. Continue losartan. Start on metoprolol and amlodipine as noted above. (4) Obesity: Status: Chronic Plan: Lose weight. Patient counseled. (5) Nicotine dependence: Status: Chronic Plan: Counseled to quit smoking. (6) Sleep apnea: Status: Chronic Plan: As per PCP/sleep medicine. Orders: Orders 12 Lead EKG performed by [facility] Today R06.02 - Shortness of breath, R07.9 - Chest pain, unspecified, R53.83 - Other fatigue Plan Details Follow Up: 4 Weeks Coding Level of Care Code Off vis,new,level 4 Diagnoses Chest pain R07.9 Coronary artery disease I25.10 Essential hypertension I10 Obesity E66.9 Nicotine dependence F17.200 Sleep apnea G47.30 Coding Level of Care Code Off vis,new,level 4 Diagnoses Chest pain R07.9 Coronary artery disease I25.10 Essential hypertension I10 Obesity E66.9 Nicotine dependence F17.200 Sleep apnea G47.30 02/16/23 1027 <Electronically signed by Conrad Feliz MD> Date Conrad Feliz MD Cosigner Signature: Date (if applicable) CC: BALL RACKERJadaC Gunjan Parisi [facility] Work Phone: Start: 01-01-2023 End: 01-01-2023 Echo Complete Procedure Note: See Note; NOTES: [facility] [address] [place] [address] Echo Complete 01/01/23 1255 MR#: [id number] Acct: [id number] Name: BOLA MA Rep #: [id number] : 1965 57 From: Conrad Feliz MD Attending Dr: RISSA Pablo Status: [facility] Ordering Dr: Gunjan Parisi Date: 01/01/23 Location: [facility] Sex: M C Admitted: Reason For Study: CHEST PAIN Procedure This was a 2D Doppler, Color Flow transthoracic echocardiogram. Exam performed in department. Left Ventricle Normal left ventricle. Mild concentric left ventricular hypertrophy. The left ventricular ejection fraction is 65 %. Right Ventricle Normal right ventricle. Atria The left atrium is mildly enlarged. Normal right atrium. Mitral Valve The mitral valve is structurally normal. No prolapse or stenosis seen. Tricuspid Valve Trivial tricuspid valve insufficiency. Normal pulmonary artery pressure. Aortic Valve Normal aortic valve. Pulmonic Valve The pulmonic valve is not well visualized. Great Vessels Normal sized aortic root. Pericardium/Pleural No pericardial effusion. MMode/2D Measurements Calculations LVIDd: 4.3 cm IVSd: 1.2 cm Ao root diam: 3.5 cm LVIDs: 3.6 cm LVPWd: 1.0 cm FS: 17.6 % LAV(MOD-bp): 63.8 ml LVAd ap4: 31.0 cm2 SV(MOD-sp4): 57.9 ml LAV(MOD-bp) Indexed: 26.0 ml/m2 LVLd ap4: 8.4 cm LAV(MOD-sp2): 56.2 ml EDV(MOD-sp4): 94.1 ml LAV(MOD-sp4): 60.8 ml EDV(sp4-el): 97.0 ml LVAs ap4: 16.3 cm2 LVLs ap4: 6.6 cm ESV(MOD-sp4): 36.2 ml ESV(sp4-el): 34.4 ml EF(MOD-sp4): 61.5 % EF(sp4-el): 64.5 % SV(sp4-el): 62.6 ml LA A4 area: 21.5 cm2 LA dimension(2D): 4.0 cm RA A4 area: 14.8 cm2 Time Measurements MV dec time: 0.23 sec Doppler Measurements Calculations MV E max franko: 61.3 cm/sec Lat Peak E' Franko: 11.0 cm/sec Med Peak E' Franko: 7.1 cm/sec MV A max franko: 80.7 cm/sec E/E' lat: 5.6 E/E' med: 8.6 MV E/A: 0.76 MV V2 max: 79.0 cm/sec Ao V2 max: 101.1 cm/sec MV max P.5 mmHg MV dec slope: 264.5 cm/sec2 Ao max P.1 mmHg MV V2 mean: 44.6 cm/sec Ao V2 mean: 70.4 cm/sec MV mean P.94 mmHg Ao mean P.3 mmHg MV V2 VTI: 21.2 cm Ao V2 VTI: 22.6 cm AV (velocity ratio): 0.99 LV V1 max: 100.3 cm/sec PA V2 max: 88.5 cm/sec TR max franko: 232.7 cm/sec LV V1 max P.0 mmHg PA V2 mean: 66.4 cm/sec TR max P.7 mmHg LV V1 mean P.0 mmHg LV V1 mean: 66.3 cm/sec LV V1 VTI: 22.3 cm ECHO/Echo Complete Interpretation Summary Mild concentric left ventricular hypertrophy. The left ventricular ejection fraction is 65 %. The left atrium is mildly enlarged. Ordering Physician: Gunjan Parisi Referring Physician: Gunjan Parisi Performed By: Dipti Estrella RCS 01/01/23 1425 Date Conrad Feliz MD CC: Gunjan Parisi BALL RACKER; BALL RACKER-C Gunjan Parisi Date Dictated: 01/01/23 1255 Date Transcribed: 01/01/231424 Nonprofit Financial Controller: Signed Gunjan Parisi [facility] Work Phone: Start: 12-18-2022 End: 12-20-2022 CTA Chest W/WO Contrast Procedure Note: See Note; NOTES: [facility] Imaging Services [address] [place] [id number] CTA Chest W/WO Contrast MR#: [id number] Acct: [id number] Name: BOLA MA Rep #: [id number] : 1965 M 57 From: Tony Luz MD PCP: RISSA Pablo Status: REG CLI Study: CTA Chest W/WO Contrast Date of Exam: 12/18/22 Exam# [id number] Ordering Dr: Gunjan Parisi STUDY: CTA CHEST REASON FOR EXAM: Male, 57 years old. ELEVATED D-DIMER 2.0 RULE OUT PE RADIATION DOSAGE (If Supplied By Facility): CTDIvol = ( 45.12 ) mGy, DLP = ( 791.47 ) mGycm TECHNIQUE: The examination was performed with the intravenous administration of IV 100mL Isovue-370. Post-processing of the angiographic images was performed, with multiplanar reformation and 3D reconstruction. Individualized dose optimization techniques were used for this CT. COMPARISON: Chest x-ray 12/16/2022 FINDINGS: Normal enhancement of the main pulmonary artery and right and left pulmonary arteries. Normal enhancement of the bilateral peripheral pulmonary arteries. There is no demonstrated pulmonary embolism. Normal thoracic aorta and visualized great vessels. There is no demonstrated aortic dissection. Normal heart and pericardium. Normal mediastinum. Normal hilar regions. Normal visualized trachea and bronchi. The lungs are well expanded. Mild emphysema with some subpleural scarring. No noncalcified nodule or mass. Normal pleura. Normal chest wall structures. Normal osseous structures. Normal visualized upper abdomen. CT/CTA Chest W/WO Contrast IMPRESSION: Normal CTA chest examination, without a demonstrated pulmonary embolism or arterial dissection. Mild emphysema without pneumonia, atelectasis, nodule, or mass per Electronically Signed: Tony Luz MD at 14:44 EDT , CC: Gunjan Parisi BALL RACKER; DULCE-C Gunjan Parisi Nonprofit Financial Controller: Signed Gunjan Parisi CNP Work Phone: Start: 12-16-2022 End: 12-16-2022 Chest PA and Lateral Procedure Note: See Note; NOTES: [facility] [address] [place] [address] Chest PA and Lateral MR#: [id number] Acct: [id number] Name: BOLA MA Rep #: [id number] : 1965 M 57 From: Travon mason MD PCP: Tajna Bell NP-C Status: DEP AMB Study: Chest PA and Lateral Date of Exam: 12/16/22 Exam# [id number] Ordering Dr: Gunjan Parisi STUDY: X-RAY CHEST REASON FOR EXAM: Male, 57 years old. Chest pain -- STAT TECHNIQUE: PA and lateral views of the chest. COMPARISON: Comparison is made with prior study dated February 17, 2018. FINDINGS: There is hyperinflation of the lungs consistent with chronic obstructive lung disease (COPD). Scattered calcified granulomas. There is no demonstrated pleural abnormality. Normal size heart. Normal mediastinum and tang. Normal visualized pulmonary arteries. Normal visualized aortic arch and descending thoracic aorta. Normal visualized thoracic spine. Normal visualized ribs, clavicles, and shoulders. There is no demonstrated abnormality of the visualized soft tissue structures of the upper abdomen. RAD/Chest PA and Lateral IMPRESSION: Hyperinflation. Scattered calcified granulomas. Electronically Signed: Travon Almaguer MD at 12:51 EDT , CC: Gunjan Parisi NP; BALL RACKER-C Tanja Bell Nonprofit Financial Controller: Signed Gunjan Parisi CNP Work Phone: Start: 07-26-2020 End: 07-26-2020 Hand Min 3 Views Comments: See Note; NOTES: [facility] [address] [place] [address] Hand Min 3 Views MR#: [id number] Acct: [id number] Name: BLOA MA Rep #: [id number] : 1965 M 55 From: Juan paez MD PCP: Care Physician, No Primary Status: DEP AMB Study: Hand Min 3 Views Date of Exam: 07/26/20 Exam# [id number] Ordering Dr: Tanja Bell NP BALL RACKER-C STUDY: X-RAY - RIGHT HAND REASON FOR EXAM: Male, 55 years old. PAIN IN RIGHT HAND WITH STIFFNESS AND IN RIGHT FINGERS. NO KNOWN RECENT INJURY. PATIENT STATES HX OF BREAKING SOMETHING IN HIS HAND ABOUT 12 YRS AGO. TECHNIQUE: 3 view(s) of the hand. COMPARISON: None. FINDINGS: Normal radiocarpal articulation. Normal distal radioulnar joint. Normal visualized carpal bones. Normal carpal articulations Normal carpometacarpal articulation of the thumb. Normal second through fifth carpometacarpal joints. There are deformities of the fourth and fifth metacarpals related to previous healed fractures. Normal metacarpophalangeal joint of the thumb. Normal interphalangeal joint of the thumb. Normal proximal and distal phalanges of the thumb. Normal metacarpophalangeal joints of the second through fifth fingers. Normal proximal and distal interphalangeal joints of the second through fifth fingers. Normal phalanges of the second through fifth fingers. The soft tissue structures are unremarkable. RAD/Hand Min 3 Views IMPRESSION: No definite acute or significant abnormality seen. Electronically Signed: Juan Cortez MD at 20:52 EST , Service support , CC: RISSA Bell; No Primary Care Physician Nonprofit Financial Controller: Signed Tanja Bell Work Phone: None (qualifier value) DR MARJAN MATOS DO Plastic repair procedure Karthik Herzog Plan of Treatment Date Care Activity Detail Author Start: 12-16-2022 25 hydroxy includes fractions if performed CALCIFEDIOL (20367) [facility]; [facility] Work Phone: Start: 12-16-2022 Assay of thyroid stimulating hormone tsh TSH (THYROID STIMULATING HORMONE) (82674) [facility]; [facility] Work Phone: Start: 12-16-2022 Assay of troponin quantitative Troponin I (58353) [facility]; [facility] Work Phone: Start: 12-16-2022 Blood count complete auto&auto difrntl wbc CBC, PLATELETS & AUT DIFF (73779) [facility]; [facility] Work Phone: Start: 12-16-2022 Fibrin dgradj products d-dimer quantitative D-Dimer (22740) [facility]; [facility] Work Phone: Start: 12-16-2022 Natriuretic peptide BNTP (33055) [facility]; [facility] Work Phone: Start: 12-16-2022 Procedure Education Eprescribed prescriptions (G8553) [facility]; [facility] Work Phone: Start: 07-24-2022 Hemoglobin glycosylated a1c HGB A1C (19794) [facility]; [facility] Work Phone: Start: 07-24-2022 Procedure Education Eprescribed prescriptions (G8553) [facility]; [facility] Work Phone: Start: 07-24-2022 Provider Instructions for Treatment [facility]; [facility] Work Phone: Start: 07-24-2022 Comprehensive metabolic panel METABOLIC PANEL, COMPREHENSIVE (02467) [facility]; [facility] Work Phone: Start: 03-25-2022 Patient Education Smoking: Ways to Quit: smoking cessation [facility]; [facility] Work Phone: Start: 03-25-2022 Provider Instructions for Treatment [facility]; [facility] Work Phone: Start: 03-20-2022 Procedure Education Eprescribed prescriptions (G8553) [facility]; [facility] Work Phone: Start: 03-20-2022 Provider Instructions for Treatment [facility]; [facility] Work Phone: Start: 03-20-2022 Hemoglobin glycosylated a1c HGB A1C (84532) [facility]; [facility] Work Phone: Start: 03-20-2022 Natriuretic peptide BNTP (90459) [facility]; [facility] Work Phone: Start: 03-20-2022 25 hydroxy includes fractions if performed CALCIFEDIOL (52525) [facility]; [facility] Work Phone: Start: 02-13-2022 Procedure Education Eprescribed prescriptions (G8553) [facility]; [facility] Work Phone: Start: 02-13-2022 Provider Instructions for Treatment Follow up in 4 weeks [facility]; [facility] Work Phone: Start: 10-10-2021 Procedure Education Eprescribed prescriptions (G8553) [facility]; [facility] Work Phone: Start: 10-10-2021 Provider Instructions for Treatment Follow up if no improvement or if symptoms worsen [facility]; [facility] Work Phone: Start: 07-26-2020 Procedure Education Eprescribed prescriptions (G8553) [facility]; [facility] Work Phone: Start: 07-26-2020 Provider Instructions for Treatment [facility]; [facility] Work Phone: Start: 04-17-2019 Procedure Education Eprescribed prescriptions (G8553) [facility] Work Phone: Start: 04-17-2019 Provider Instructions for Treatment [facility] Work Phone: Start: 04-17-2019 Throat culture THROAT CULTURE (01304) [facility] Work Phone: Start: 02-10-2019 Procedure Education Eprescribed prescriptions (G8553) [facility] Work Phone: Start: 02-10-2019 Provider Instructions for Treatment Follow up after consult [facility] Work Phone: Start: 02-23-2018 Procedure Education Eprescribed prescriptions (G8553) [facility] Work Phone: Start: 02-23-2018 Provider Instructions for Treatment Follow up in 3 months [facility] Work Phone: Sleep apnea : Fo llow up in 3 months [facility] Work Phone: Tobacco user : Eprescribed prescriptions (G8553) [facility] Work Phone: [facility] Work Phone: [facility] Work Phone: [facility] Work Phone: [facility] Work Phone: [facility] Work Phone: [facility] Work Phone: [facility]; [facility] Work Phone: [facility]; [facility] Work Phone: Payers Date Payer Category Payer Private Health Insurance [id number] 2021 Private Health Insurance [id number] 1965 Unknown [id number] 1965 Unknown [id number] 1965 Unknown [id number] 1965 Unknown [id number] 1965 Unknown [id number] 1965 Unknown [id number] 1965 Unknown [id number] Unknown [employer] Unknown [id number] Social History Date Type Detail Facility Alcohol use: Occasional alcohol use. [facility] Work Phone: Caffeine use [facility] Work Phone: Functional Status Date Assessment Result Facility 01-24-2023 Functional Status Independent [facility] 01-24-2023 Functional Status Activity Status ADL [facility] 08-09-2022 Functional Status ID band on, Call device within reach, Bed in low position, Wheels locked, Upper/Half-Length side-rails up, Phone within reach, personal items within reach, Assistive devices within reach, Toileting device within reach, Bedside Cart Locked, Visitor at bedside, Safety level maintained [facility] 02-15-2022 Functional Status Standard Safet y ID band on, Call device within reach, Bed in low position, Wheels locked, Upper/Half-Length side-rails up, Bedside Cart Locked, Safety level maintained [facility] 02-15-2022 Functional Status [place] [facility] Mental Status Date Assessment Result Facility 01-24-2023 Mental Status Orientation Oriented x 4 [facility] 08-09-2022 Mental Status Oriented x [address] [facility] 02-15-2022 Mental Status Oriented x [address] [facility] Clinical Notes 02-15-2022 to 01-24-2023 Note Date & Type Note Facility 01-24-2023 Hospital Discharge instructions Patient Education 01/24/2023 18:08:27 Smoking Cessation How to Quit Smoking Smoking is a hard habit to break. About half of all people who have ever smoked have been able to quit. Most people who still smoke want to quit. Here are some of the best ways to stop smoking. Keep in mind the health benefits of quitting The health benefits of quitting start right away. They keep improving the longer you go without smoking. Knowing this can help inspire you to stay on track. These benefits occur at any age. If you are 17 or 70, quitting is a good choice. Some of the health benefits after your last cigarette include: 20 minutes: Your blood pressure and pulse return to normal. 8 hours: Your oxygen levels return to normal. 2 days: Your ability to smell and taste start to improve as damaged nerves regrow. 2 to 3 weeks: Your circulation and lung function improve. 1 to 9 months: Your coughing, congestion, and shortness of breath decrease. Your tiredness decreases. 1 year: Your risk of heart attack decreases by half. 5 years: Your risk of lung cancer decreases by half. Your risk of stroke becomes the same as a nonsmoker s. Go cold turkey Most former smokers quit cold turkey. This means stopping all at once. Trying to cut back slowly often doesn't work as well. This may be because it continues the habit of smoking. Also, you may inhale more smoke while smoking fewer cigarettes. This leads to the same amount of nicotine in your body. Get support Support programs can be a big help, especially for heavy smokers. These groups offer lectures, ways to change behavior, and peer support. Here are some ways to find a support program: Free national quitline 298-NNCZ-ZCO (483-844-3235) [facility] quit-smoking programs [employer] 711-136-9962 [employer] 072-537-1125 Support at home is important too. Family and friends can offer praise and reassurance. If the smoker in your life finds it hard to quit, encourage them to keep trying. Try udfl-oou-vpzcbej medicine Nicotine replacement therapy may make it easier to quit. Some aids are available without a prescription. These include a nicotine patch, gum, and lozenges. But it is best to use these under the care of your healthcare provider. The skin patch gives a steady supply of nicotine. Nicotine gum and lozenges give short-time doses of low levels of nicotine. Both methods reduce the craving for cigarettes. If you have nausea, vomiting, dizziness, weakness, or a fast heartbeat, stop using these products. See your healthcare provider. Ask about prescription medicine After reviewing your smoking patterns and past attempts to quit, your doctor may offer a prescription medicine such as bupropion, varenicline, a nicotine inhaler, or nasal spray. Each has advantages and side effects. Your doctor can review these with you. Keep trying Most smokers make many attempts at quitting before they are successful. It s important not to give up. For more information For more on how to quit smoking, try these online resources: Go to Smokefree.gov. Read Clearing the Air from the National [employer] [place] at smokefree.gov/sites/default/files /pdf/eiywsiiu-yap-rix-accessible. pdf. 4430-9411 [employer]. [address] [place] [address], [place] [address]. All rights reserved. This information is not intended as a substitute for professional medical care. Always follow your healthcare professional's instructions. 01/24/2023 18:08:14 Hypertension, Established Established High Blood Pressure High blood pressure (hypertension) is a chronic disease. Often, healthcare providers don t know what causes it. But it can be caused by certain health conditions and medicines. If you have high blood pressure, you may not have any symptoms. If you do have symptoms, they may include headache, dizziness, changes in your vision, chest pain, and shortness of breath. But even without symptoms, high blood pressure that s not treated raises your risk for heart attack, heart failure, and stroke. High blood pressure is a serious health risk and shouldn t be ignored. Blood pressure measurements are given as 2 numbers. Systolic blood pressure is the upper number. This is the pressure when the heart contracts. Diastolic blood pressure is the lower number. This is the pressure when the heart relaxes between beats. You will see your blood pressure readings written together. For example, a person with a systolic pressure of 118 and a diastolic pressure of 78 will have 118/78 written in the medical record. Blood pressure is categorized as normal, elevated, or stage 1 or stage 2 high blood pressure: Normal blood pressure is systolic of less than 120 and diastolic of less than 80 (120/80) Elevated blood pressure is systolic of 120 to 129 and diastolic less than 80 Stage 1 high blood pressure is systolic is 130 to 139 or diastolic between 80 to 89 Stage 2 high blood pressure is when systolic is 140 or higher or the diastolic is 90 or higher Home care If you have high blood pressure, follow these home care guidelines to help lower your blood pressure. If you are taking medicines for high blood pressure, these methods may reduce or end your need for medicines in the future. Start a weight-loss program if you are overweight. Cut back on how much salt you get in your diet. Here s how to do this: oDon t eat foods that have a lot of salt. These include olives, pickles, smoked meats, and salted potato chips. oDon t add salt to your food at the table. oUse only small amounts of salt when cooking. Start an exercise program. Talk with your healthcare provider about the type of exercise program that would be best for you. It doesn't have to be hard. Even brisk walking for 20 minutes 3 times a week is a good form of exercise. Don t take medicines that stimulate the heart. This includes many qwne-ywj-qeotjpw cold and sinus decongestant pills and sprays, as well as diet pills. Check the warnings about high blood pressure on the label. Before buying any orqg-bxt-ekhoerk medicines or supplements, always ask the pharmacist about the product's potential interaction with your high blood pressure and your high blood pressure medicines. Stimulants such as amphetamine or cocaine could be deadly for someone with high blood pressure. Never take these. Limit how much caffeine you get in your diet. Switch to caffeine-free products. Stop smoking. If you are a long-time smoker, this can be hard. Talk to your healthcare provider about medicines and nicotine replacement options to help you. Also, enroll in a stop-smoking program to make it more likely that you will quit for good. Learn how to handle stress. This is an important part of any program to lower blood pressure. Learn about relaxation methods like meditation, yoga, or biofeedback. If your provider prescribed medicines, take them exactly as directed. Missing doses may cause your blood pressure get out of control. If you miss a dose or doses, check with your healthcare provider or pharmacist about what to do. Consider buying an automatic blood pressure machine to check your blood pressure at home. Ask your provider for a recommendation. You can get one of these at most pharmacies. The [employer] recommends the following guidelines for home blood pressure monitoring: Don't smoke or drink coffee for 30 minutes before taking your blood pressure. Go to the bathroom before the test. Relax for 5 minutes before taking the measurement. Sit with your back supported (don't sit on a couch or soft chair); keep your feet on the floor uncrossed. Place your arm on a solid flat surface (like a table) with the upper part of the arm at heart level. Place the middle of the cuff directly above the bend of the elbow. Check the monitor's instruction manual for an illustration. Take multiple readings. When you measure, take 2 to 3 readings one minute apart and record all of the results. Take your blood pressure at the same time every day, or as your healthcare provider recommends. Record the date, time, and blood pressure reading. Take the record with you to your next medical appointment. If your blood pressure monitor has a built-in memory, simply take the monitor with you to your next appointment. Call your provider if you have several high readings. Don't be frightened by a single high blood pressure reading, but if you get several high readings, check in with your healthcare provider. Note: When blood pressure reaches a systolic (top number) of 180 or higher OR diastolic (bottom number) of 110 or higher, seek emergency medical treatment. Follow-up care You will need to see your healthcare provider regularly. This is to check your blood pressure and to make changes to your medicines. Make a follow-up appointment as directed. Bring the record of your home blood pressure readings to the appointment. When to seek medical advice Call your healthcare provider right away if any of these occur: Blood pressure reaches a systolic (upper number) of 180 or higher OR a diastolic (bottom number) of 110 or higher Chest pain or shortness of breath Severe headache Throbbing or rushing sound in the ears Nosebleed Sudden severe pain in your belly (abdomen) Extreme drowsiness, confusion, or fainting Dizziness or spinning sensation (vertigo) Weakness of an arm or leg or one side of the face You have problems speaking or seeing [id number] [employer]. [address] [place] [address]. All rights reserved. This information is not intended as a substitute for professional medical care. Always follow your healthcare professional's instructions. 01/24/2023 18:07:59 Chest Pain, Uncertain Cause Uncertain Causes of Chest Pain Chest pain can happen for a number of reasons. Sometimes the cause can't be determined. If your condition does not seem serious, and your pain does not appear to be coming from your heart, your healthcare provider may recommend watching it closely. Sometimes the signs of a serious problem take more time to appear. Many problems not related to your heart can cause chest pain. These include: Musculoskeletal. Costochondritis is an inflammation of the tissues around the ribs that can occur from trauma or overuse injuries, or a strain of the muscles of the chest wall Respiratory. Pneumonia, collapsed lung (pneumothorax), or inflammation of the lining of the chest and lungs (pleurisy) Gastrointestinal. Esophageal reflux, heartburn, ulcers, or gallbladder disease Anxiety and panic disorders Nerve compression and inflammation Rare miscellaneous problems such as aortic aneurysm (a swelling of the large artery coming out of the heart) or pulmonary embolism (a blood clot in the lungs) Home care After your visit, follow these recommendations: Rest today and avoid strenuous activity. Take any prescribed medicine as directed. Be aware of any recurrent chest pain and notice any changes Follow-up care Follow up with your healthcare provider if you do not start to feel better within 24 hours, or as advised. Call 911 Call 911 if any of these occur: A change in the type of pain: if it feels different, becomes more severe, lasts longer, or begins to spread into your shoulder, arm, neck, jaw or back Shortness of breath or increased pain with breathing Weakness, dizziness, or fainting Rapid heart beat Crushing sensation in your chest When to seek medical advice Call your healthcare provider right away if any of the following occur: Cough with dark colored sputum (phlegm) or blood Fever of 100.4 F (38 C) or higher, or as directed by your healthcare provider Swelling, pain or redness in one leg [id number] [employer]. [address] [place] [address], [place] [address]. All rights reserved. This information is not intended as a substitute for professional medical care. Always follow your healthcare professional's instructions. Follow Up Care 01/24/2023 16:25:48 With:cardiology Address:Unknown When:2-4 days Comments:Follow-up as scheduledReturn to ED if symptoms worsenCall to move up appt to this week if possible. Stop smoking now. Take aspirin dailyFollow up for stress testing/ echocardialgram and blood pressure gael With:GUNJAN PARISI Address: [address] [place] [address] [phone] Business (1) When:2-4 days [facility] 01-24-2023 Note ORIGINAL EXAMINATION: ONE XRAY VIEW OF THE CHEST 01/24/2023 5:36 pm COMPARISON: Chest radiograph 02/15/2022 HISTORY: ORDERING SYSTEM PROVIDED HISTORY: Reason for Exam: CP FINDINGS: The cardiac silhouette is within normal limits. There is no significant pulmonary vascular congestion. There is no focal consolidation, pleural effusion, or pneumothorax. There are no acute osseous abnormalities. IMPRESSION: No acute radiographic findings. Interpreted by: Jn Pantoja Preliminary Report By: Jn Pantoja Electronically signed By Jn Pantoja Dictated Date: 01/24/2023 5:50:42 PM Prelim Date: 01/24/2023 5:51:23 PM Sign Date: 01/24/2023 5:51:23 PM Ordering Provider: JAVI VORA [facility] 01-24-2023 Note ORIGINAL EXAMINATION: ONE XRAY VIEW OF THE CHEST 01/24/2023 5:36 pm COMPARISON: Chest radiograph 02/15/2022 HISTORY: ORDERING SYSTEM PROVIDED HISTORY: Reason for Exam: CP FINDINGS: The cardiac silhouette is within normal limits. There is no significant pulmonary vascular congestion. There is no focal consolidation, pleural effusion, or pneumothorax. There are no acute osseous abnormalities. IMPRESSION: No acute radiographic findings. Interpreted by: Jn Pantoja Preliminary Report By: Jn Pantoja Electronically signed By Jn Pantoja Dictated Date: 01/24/2023 5:50:42 PM Prelim Date: 01/24/2023 5:51:23 PM Sign Date: 01/24/2023 5:51:23 PM Ordering Provider: JAVI VORA [facility] 08-09-2022 Hospital Discharge instructions Patient Education 08/09/2022 15:59:38 R.I.C.E. RICE RICE stands for rest, ice, compression, and elevation. Doing these things helps limit pain and swelling after an injury. RICE also helps injuries heal faster. Use RICE for sprains, strains, and severe bruises or bumps. Follow the tips on this handout and begin RICE as soon as possible after an injury. Rest Pain is your body s way of telling you to rest an injured area. Whether you have hurt an elbow, hand, foot, or knee, limiting its use will prevent further injury and help you heal. Ice Applying ice right after an injury helps prevent swelling and reduce pain. Don t place ice directly on your skin. Wrap a cold pack or bag of ice in a thin cloth. Place it over the injured area. Ice for 10 minutes every 3 hours. Don t ice for more than 20 minutes at a time. Compression Putting pressure (compression) on an injury helps prevent swelling and provides support. Wrap the injured area firmly with an elastic bandage. If your hand or foot tingles, becomes discolored, or feels cold to the touch, the bandage may be too tight. Rewrap it more loosely. If your bandage becomes too loose, rewrap it. Do not wear an elastic bandage overnight. Elevation Keeping an injury elevated helps reduce swelling, pain, and throbbing. Elevation is most effective when the injury is kept elevated higher than the heart. Call your healthcare provider if you notice any of the following: Fingers or toes feel numb, are cold to the touch, or change color. Skin looks shiny or tight. Pain, swelling, or bruising worsens and is not improved with elevation. [id number] [employer]. [address] [place] [address]. All rights reserved. This information is not intended as a substitute for professional medical care. Always follow your healthcare professional's instructions. Follow Up Care 08/09/2022 15:37:17 With:Call Physician Referral Address:Unknown When:2-4 days With:Follow up with primary care provider Address:Unknown When:2-4 days [facility] 08-09-2022 Emergency department Discharge summary Discharge Instructions Thank you for allowing [facility] to assist you with your healthcare needs. The following is important discharge information regarding your hospital visit. Diagnosis from Today's Visit Lower extremity pain, right Leg pain Leg pain-swelling What to Do Next Instructions from Your Care Team You will need to call the vascular lab tomorrow morning to schedule the ultrasound of your leg. If there is any worsening in your overall symptoms including loss of bowel or bladder control numbness in between your groin then please return to the emergency department immediately. Discharge ED Outpatient Vascular Lab - Ordered -- Test Requested: venous doppler, Lower extremity, Bilateral, Test Reason: Swelling, Mon-Fri 8am-4:30pm: Call [phone] at 7:30am to schedule a same day appointment for testing. Please be aware there may be a short wait time. Post Acute Orders No qualifying data available. You Need to Schedule the Following Appointments Follow Up with Call Physician Referral When Within 2-4 days Follow Up with Follow up with primary care provider When Within 2-4 days Allergies NKA Medications Please ask your primary doctor or pharmacist before taking any other medication not listed, including over the counter drugs, herbal medications, vitamins and or supplements as they may interact with your home medications. What How Much When Why Instructions Last Dose Changed acetaminophen-hydrocodone ([place] 325- 5 mg oral tablet) 1 tab(s) by mouth Every 6 hours as needed for as needed for pain Leg pain Duration: 3 Days Printed Prescription Changed acetaminophen-hydrocodone ([place] 325- 5 mg oral tablet) 1 tab(s) by mouth Every 6 hours as needed for as needed for pain Chest pain Duration: 3 Days Unchanged albuterol (albuterol MDI (90 mcg/ inh) CFC free inhalation aerosol) 2 puff(s) by inhalation Every 2 hours Unchanged albuterol (ProAir HFA MDI (90 mcg/ inh) inhalation aerosol) 1 puff(s) by inhalation Four (4) times a day as needed for Shortness of breath (SOB) Unchanged albuterol (ProAir HFA MDI (90 mcg/ inh) inhalation aerosol) 2 puff(s) by inhalation Every 4 hours as needed for as needed for wheezing Chest pain Unchanged busPIRone (Buspar use busPIRone ) 10 Milligram by mouth Two (2) times a day Unchanged busPIRone (busPIRone 10 mg oral tablet) take 2 tablets by mouth every morning and 2 at bedtime Unchanged losartan (losartan 50 mg oral tablet) Unchanged ondansetron (ondansetron 4 mg oral tablet, disintegrating) 1 tab(s) by mouth Every 6 hours as needed for Nausea/Vomiting Unchanged predniSONE (predniSONE 10 mg oral tablet) 4 tab(s) by mouth Once a day Duration: 5 Days Unchanged ranitidine Unchanged traZODone (traZODone 50 mg oral tablet) 1 tab(s) by mouth Once a day Unchanged traZODone (traZODone 50 mg oral tablet) take 3 tablets by mouth at bedtime for sleep Please take this list to your next doctor s visit. Bring all medications you take, including over the counter medications, herbals and other supplements with you to your doctor s visit. Patients and families are reminded to discard old lists and to update any records with all medication providers or retail pharmacies. Medication Leaflets acetaminophen and hydrocodone (a SEET a MIN oh fen and mary droe KOE done) Hycet, Lorcet, [place], Verdrocet, Vicodin, Xodol, Zamicet What is the most important information I should know about acetaminophen and hydrocodone? MISUSE OF OPIOID MEDICINE CAN CAUSE ADDICTION, OVERDOSE, OR . Keep the medication in a place where others cannot get to it. Taking opioid medicine during may cause life-threatening withdrawal symptoms in the . Fatal side effects can occur if you use opioid medicine with alcohol, or with other drugs that cause drowsiness or slow your breathing. Stop taking this medicine and call your doctor right away if you have skin redness or a rash that spreads and causes blistering and peeling. What is acetaminophen and hydrocodone? Acetaminophen and hydrocodone is a combination medicine used to relieve moderate to severe pain. Acetaminophen and hydrocodone contains an opioid medicine, and may be habit-forming. Acetaminophen and hydrocodone may also be used for purposes not listed in this medication guide. What should I discuss with my healthcare provider before taking acetaminophen and hydrocodone? You should not use this medicine if you are allergic to acetaminophen or hydrocodone, or if you have: severe asthma or breathing problems; or a blockage in your stomach or intestines. Tell your doctor if you have ever had: breathing problems, sleep apnea (breathing stops during sleep); liver disease; a drug or alcohol addiction; kidney disease; a head injury or seizures; urination problems; or problems with your thyroid, pancreas, or gallbladder. If you use opioid medicine while you are , your baby could become dependent on the drug. This can cause life-threatening withdrawal symptoms in the baby after it is born. Babies born dependent on opioids may need medical treatment for several weeks. Ask a doctor before using opioid medicine if you are . Tell your doctor if you notice severe drowsiness or slow breathing in the nursing baby. How should I take acetaminophen and hydrocodone? Follow all directions on your prescription label. Never take this medicine in larger amounts, or for longer than prescribed. An overdose can damage your liver or cause . Tell your doctor if you feel an increased urge to use more of this medicine. Never share this medicine with another person, especially someone with a history of drug abuse or addiction. MISUSE CAN CAUSE ADDICTION, OVERDOSE, OR . Keep the medicine in a place where others cannot get to it. Selling or giving away this medicine is against the law. Measure liquid medicine carefully. Use the dosing syringe provided, or use a medicine dose-measuring device (not a kitchen spoon). If you need surgery or medical tests, tell the doctor ahead of time that you are using this medicine. You should not stop using this medicine suddenly. Follow your doctor's instructions about tapering your dose. Store at room temperature away from moisture and heat. Keep track of your medicine. You should be aware if anyone is using it improperly or without a prescription. Do not keep leftover opioid medication. Just one dose can cause in someone using this medicine accidentally or improperly. Ask your pharmacist where to locate a drug take-back disposal program. If there is no take-back program, flush the unused medicine down the toilet. What happens if I miss a dose? Since this medicine is used for pain, you are not likely to miss a dose. Skip any missed dose if it is almost time for your next dose. Do not use two doses at one time. What happens if I overdose? Seek emergency medical attention or call the Poison Help line at . An overdose of this medicine can be fatal, especially in a child or other person using the medicine without a prescription. Overdose symptoms may include nausea, vomiting, sweating, severe drowsiness, pinpoint pupils, slow breathing, or no breathing. Your doctor may recommend you get naloxone (a medicine to reverse an opioid overdose) and keep it with you at all times. A person caring for you can give the naloxone if you stop breathing or don't wake up. Your caregiver must still get emergency medical help and may need to perform CPR (cardiopulmonary resuscitation) on you while waiting for help to arrive. Anyone can buy naloxone from a pharmacy or local health department. Make sure any person caring for you knows where you keep naloxone and how to use it. What should I avoid while taking acetaminophen and hydrocodone? Avoid driving or operating machinery until you know how this medicine will affect you. Dizziness or drowsiness can cause falls, accidents, or severe injuries. Do not drink alcohol. Dangerous side effects or could occur. Ask a doctor or pharmacist before using any other medicine that may contain acetaminophen (sometimes abbreviated as APAP). Taking certain medications together can lead to a fatal overdose. What are the possible side effects of acetaminophen and hydrocodone? Get emergency medical help if you have signs of an allergic reaction: hives; difficulty breathing; swelling of your face, lips, tongue, or throat. Opioid medicine can slow or stop your breathing, and may occur. A person caring for you should give naloxone and/or seek emergency medical attention if you have slow breathing with long pauses, blue colored lips, or if you are hard to wake up. In rare cases, acetaminophen may cause a severe skin reaction that can be fatal. This could occur even if you have taken acetaminophen in the past and had no reaction. Stop taking this medicine and call your doctor right away if you have skin redness or a rash that spreads and causes blistering and peeling. Call your doctor at once if you have: noisy breathing, sighing, shallow breathing, breathing that stops; a light-headed feeling, like you might pass out; liver problems--nausea, upper stomach pain, tiredness, loss of appetite, dark urine, zeus-colored stools, jaundice (yellowing of the skin or eyes); low cortisol levels-- nausea, vomiting, loss of appetite, dizziness, worsening tiredness or weakness; o high levels of serotonin in the body--agitation, hallucinations, fever, sweating, shivering, fast heart rate, muscle stiffness, twitching, loss of coordination, nausea, vomiting, diarrhea. Serious breathing problems may be more likely in older adults and in those who are debilitated or have wasting syndrome or chronic breathing disorders. Common side effects include: dizziness, drowsiness, feeling tired; nausea, vomiting, stomach pain; constipation; or headache. This is not a complete list of side effects and others may occur. Call your doctor for medical advice about side effects. You may report side effects to FDA at 9-832-WZE-7077. What other drugs will affect acetaminophen and hydrocodone? You may have breathing problems or withdrawal symptoms if you start or stop taking certain other medicines. Tell your doctor if you also use an antibiotic, antifungal medication, heart or blood pressure medication, seizure medication, or medicine to treat HIV or hepatitis C. Opioid medication can interact with many other drugs and cause dangerous side effects or . Be sure your doctor knows if you also use: cold or allergy medicines, bronchodilator asthma/COPD medication, or a diuretic ('water pill'); medicines for motion sickness, irritable bowel syndrome, or overactive bladder; other opioids--opioid pain medicine or prescription cough medicine; a sedative like Valium--diazepam, alprazolam, lorazepam, Xanax, Klonopin, Versed, and others; drugs that make you sleepy or slow your breathing--a sleeping pill, muscle relaxer, medicine to treat mood disorders or mental illness; drugs that affect serotonin levels in your body--a stimulant, or medicine for depression, Parkinson's disease, migraine headaches, serious infections, or nausea and vomiting. This list is not complete. Other drugs may affect acetaminophen and hydrocodone, including prescription and adub-ucr-wrtrara medicines, vitamins, and herbal products. Not all possible interactions are listed here. Where can I get more information? Your doctor or pharmacist can provide more information about acetaminophen and hydrocodone. Remember, keep this and all other medicines out of the reach of children, never share your medicines with others, and use this medication only for the indication prescribed. Every effort has been made to ensure that the information provided by [employer]. [employer]') is accurate, up-to-date, and complete, but no guarantee is made to that effect. Drug information contained herein may be time sensitive. [employer] information has been compiled for use by healthcare practitioners and consumers in the [place] and therefore [employer] does not warrant that uses outside of the [place] are appropriate, unless specifically indicated otherwise. [facility] drug information does not endorse drugs, diagnose patients or recommend therapy. [employer] drug information is an informational resource designed to assist licensed healthcare practitioners in caring for their patients and/or to serve consumers viewing this service as a supplement to, and not a substitute for, the expertise, skill, knowledge and judgment of healthcare practitioners. The absence of a warning for a given drug or drug combination in no way should be construed to indicate that the drug or drug combination is safe, effective or appropriate for any given patient. [employer] does not assume any responsibility for any aspect of healthcare administered with the aid of information [facility] provides. The information contained herein is not intended to cover all possible uses, directions, precautions, warnings, drug interactions, allergic reactions, or adverse effects. If you have questions about the drugs you are taking, check with your doctor, nurse or pharmacist. Copyright 5072-3676 [employer]. Version: 16.03. Revision Date: 08/13/2020. Education Materials RICE RICE stands for rest, ice, compression, and elevation. Doing these things helps limit pain and swelling after an injury. RICE also helps injuries heal faster. Use RICE for sprains, strains, and severe bruises or bumps. Follow the tips on this handout and begin RICE as soon as possible after an injury. Rest Pain is your body s way of telling you to rest an injured area. Whether you have hurt an elbow, hand, foot, or knee, limiting its use will prevent further injury and help you heal. Ice Applying ice right after an injury helps prevent swelling and reduce pain. Don t place ice directly on your skin. Wrap a cold pack or bag of ice in a thin cloth. Place it over the injured area. Ice for 10 minutes every 3 hours. Don t ice for more than 20 minutes at a time. Compression Putting pressure (compression) on an injury helps prevent swelling and provides support. Wrap the injured area firmly with an elastic bandage. If your hand or foot tingles, becomes discolored, or feels cold to the touch, the bandage may be too tight. Rewrap it more loosely. If your bandage becomes too loose, rewrap it. Do not wear an elastic bandage overnight. Elevation Keeping an injury elevated helps reduce swelling, pain, and throbbing. Elevation is most effective when the injury is kept elevated higher than the heart. Call your healthcare provider if you notice any of the following: Fingers or toes feel numb, are cold to the touch, or change color. Skin looks shiny or tight. Pain, swelling, or bruising worsens and is not improved with elevation. 4181-2651 [employer]. [address] [place] [address]. All rights reserved. This information is not intended as a substitute for professional medical care. Always follow your healthcare professional's instructions. Additional Information VACCINATE! IT SAVES LIVES! Members of the community who have not yet received the COVID-19 vaccine and would like to receive it can visit one of [facility] vaccine clinics. There are many vaccine clinic locations within the [facility]. For locations and available times, please visit [email or web address]. It is important to note that some COVID mobile vaccine clinics are held outdoors and may be canceled in rainy or stormy conditions. To learn more about pediatric vaccinations (ages 5-11), we invite you to visit the [facility] webpage. [email or web address] [email or web address]-Freque [email or web address].html To learn more about the COVID-19 vaccine, we invite you to visit the [employer] website for a list of frequently asked questions. [email or web address] [email or web address] [facility] Patient Portal Access Instructions: Stay connected with your healthcare team and access your personal medical information anytime with the [facility] Patient Portal. If you would like a full copy of your medical records please contact the [facility] Medical Records Department Wednesday through Wednesday between 8a.m. and 4:30p.m. Please follow the directions below to access the portal: 1.Access the email account you provided upon [facility] to the [facility].2.Look for an invitation email from [facility].3.Open the email and access the invitation link: Accept Invitation to [facility].Fill in the required greenberg to create your account. Sign into [email or web address] with your username and password that you created in the above steps to stay up to date. You can then view a summary of results, a summary of your visits, and the ability to download your summaries to your computer or send the information securely to a physician. Remember that your healthcare information is confidential, so carefully consider who you will allow to register on the [facility] Patient Portal for access to your information. You can also access the [facility] Patient Portal on the [employer]isai. Simply click on Health Records under Health Data and then click on the [employer] logo. HOW TO SAFELY DISPOSE OF PRESCRIPTION MEDICATIONS Please use one of the following methods to safely dispose of your unused medications. 1.Use a drug disposal kit: the drug disposal pouch allows you to safely discard your old and unused drugs. Ask your nurse to give you one when you are discharged.2.Visit a local take-back location: Many local pharmacies and police departments have programs that collect old and unwanted prescription drugs. Call your local pharmacy or go to http://bit.[employer]/4W6Dg3w to find one close to you.3.Make use of household items: Use cat litter or old coffee grounds to dispose medications if other options are not available. Mix your drugs with these household products, seal them in an airtight container and throw it into the garbage. Call [facility]: [phone] to be sure your drugs can be disposed of in this way. Some medicines may require a different approach.4.Never flush your medications down the toilet. IF YOU HAVE BEEN PRESCRIBED AN OPIOIDS FOR PAIN If you have been prescribed an opioid (such as hydrocodone, oxycodone or morphine), it is critical to understand the possible side effects and risks of opioid pain medications. Even when taken as directed, opioids can have several side effects including: Tolerance, meaning you might need to take more of a medication for the same pain relief. Nausea, vomiting and/or constipation. Sleepiness, dizziness, dry mouth, confusion, depression or itching. Physical dependence, meaning you have withdrawal symptoms when a medication is stopped ? this can develop within a few days. KNOW YOUR RESPONSIBILITIES It is important to know exactly how much and how often to take the opioid pain medications you are prescribed. Never take opioids in higher amounts or more often than prescribed. Do not combine opioids with alcohol or other drugs that cause drowsiness, such as benzodiazepines, also known as benzos, including diazepam and alprazolam, muscle relaxants or sleep aids. Never sell or share prescription opioids. This is illegal. Store opioids in a secure place and out of reach of others (including children, family, friends and visitors). The last page(s) of this document has been signed and retained as a CHART COPY Signatures Patient Education Materials [employer] Medication Leaflets acetaminophen and hydrocodone My discharge plan and instructions have been reviewed and explained to me and I,BOLA MA understand my current condition and have read and understand these discharge instructions. I have received a written copy of the plan/instructions. If I have questions, I am aware that I should contact my doctor. Patient/Commercial Decorator Signature: Date/Time: Relationship to Patient: ____ Witness Name/Signature: Date/Time: [facility] 02-15-2022 Hospital Discharge instructions Patient Education 02/15/2022 19:38:19 Chest Pain, Uncertain Cause Uncertain Causes of Chest Pain Chest pain can happen for a number of reasons. Sometimes the cause can't be determined. If your condition does not seem serious, and your pain does not appear to be coming from your heart, your healthcare provider may recommend watching it closely. Sometimes the signs of a serious problem take more time to appear. Many problems not related to your heart can cause chest pain. These include: Musculoskeletal. Costochondritis is an inflammation of the tissues around the ribs that can occur from trauma or overuse injuries, or a strain of the muscles of the chest wall Respiratory. Pneumonia, collapsed lung (pneumothorax), or inflammation of the lining of the chest and lungs (pleurisy) Gastrointestinal. Esophageal reflux, heartburn, ulcers, or gallbladder disease Anxiety and panic disorders Nerve compression and inflammation Rare miscellaneous problems such as aortic aneurysm (a swelling of the large artery coming out of the heart) or pulmonary embolism (a blood clot in the lungs) Home care After your visit, follow these recommendations: Rest today and avoid strenuous activity. Take any prescribed medicine as directed. Be aware of any recurrent chest pain and notice any changes Follow-up care Follow up with your healthcare provider if you do not start to feel better within 24 hours, or as advised. Call 911 Call 911 if any of these occur: A change in the type of pain: if it feels different, becomes more severe, lasts longer, or begins to spread into your shoulder, arm, neck, jaw or back Shortness of breath or increased pain with breathing Weakness, dizziness, or fainting Rapid heart beat Crushing sensation in your chest When to seek medical advice Call your healthcare provider right away if any of the following occur: Cough with dark colored sputum (phlegm) or blood Fever of 100.4 F (38 C) or higher, or as directed by your healthcare provider Swelling, pain or redness in one leg [id number] [employer]. [address] [place] [address]. All rights reserved. This information is not intended as a substitute for professional medical care. Always follow your healthcare professional's instructions. Follow Up Care 02/15/2022 18:30:39 With:Follow up with primary care provider Address:Unknown When:2-4 days [facility] 02-15-2022 Note ORIGINAL EXAMINATION: ONE XRAY VIEW OF THE CHEST02/15/2022 6:58 pm COMPARISON: Chest x-ray December 20, 2020 HISTORY: ORDERING SYSTEM PROVIDED HISTORY: Reason for Exam: chest pain FINDINGS: The cardiomediastinal silhouette is within normal limits. No significant pulmonary vascular congestion. Linear densities noted in the bilateral lung bases, favoring subsegmental atelectasis. No focal consolidation, pneumothorax or pleural effusion. No acute osseous abnormality. IMPRESSION: Findings suggestive of subsegmental atelectasis in the bilateral lung bases with additional airspace disease not excluded. I have personally reviewed the images of this examination and agree with the resident's findings and interpretation. Interpreted by: Jefferson Reardon MD Preliminary Report By: Magdalena Dubon Electronically signed By Jefferson Reardon MD Dictated Date: 02/15/2022 7:37:36 PM Prelim Date: 02/15/2022 7:39:22 PM Sign Date: 02/15/2022 7:57:35 PM Ordering Provider: MARJAN MATOS [facility] 02-15-2022 Note Discharge Instructions Thank you for allowing [facility] to assist you with your healthcare needs. The following is important discharge information regarding your hospital visit. Diagnosis from Today's Visit Chest pain SOB - Shortness of breath What to Do Next Instructions from Your Care Team No qualifying data available. Post Acute Orders No qualifying data available. You Need to Schedule the Following Appointments Follow Up with Follow up with primary care provider When Within 2-4 days Allergies NKA Medications Please ask your primary doctor or pharmacist before taking any other medication not listed, including over the counter drugs, herbal medications, vitamins and or supplements as they may interact with your home medications. What How Much When Why Instructions Last Dose New predniSONE (predniSONE 10 mg oral tablet) 4 tab(s) by mouth Once a day Duration: 5 Days Printed Prescription Unchanged acetaminophen-hydrocodone ([place] 325- 5 mg oral tablet) 1 tab(s) by mouth Every 6 hours as needed for as needed for pain Chest pain Duration: 3 Days Unchanged albuterol (albuterol MDI (90 mcg/ inh) CFC free inhalation aerosol) 2 puff(s) by inhalation Every 2 hours Unchanged albuterol (ProAir HFA MDI (90 mcg/ inh) inhalation aerosol) 1 puff(s) by inhalation Four (4) times a day as needed for Shortness of breath (SOB) Unchanged albuterol (ProAir HFA MDI (90 mcg/ inh) inhalation aerosol) 2 puff(s) by inhalation Every 4 hours as needed for as needed for wheezing Chest pain Unchanged busPIRone (Buspar use busPIRone ) 10 Milligram by mouth Two (2) times a day Unchanged busPIRone (busPIRone 10 mg oral tablet) take 2 tablets by mouth every morning and 2 at bedtime Unchanged ondansetron (ondansetron 4 mg oral tablet, disintegrating) 1 tab(s) by mouth Every 6 hours as needed for Nausea/Vomiting Unchanged ranitidine Unchanged traZODone (traZODone 50 mg oral tablet) take 3 tablets by mouth at bedtime for sleep Unchanged traZODone (traZODone 50 mg oral tablet) 1 tab(s) by mouth Once a day Please take this list to your next doctor s visit. Bring all medications you take, including over the counter medications, herbals and other supplements with you to your doctor s visit. Patients and families are reminded to discard old lists and to update any records with all medication providers or retail pharmacies. Education Materials Uncertain Causes of Chest Pain Chest pain can happen for a number of reasons. Sometimes the cause can't be determined. If your condition does not seem serious, and your pain does not appear to be coming from your heart, your healthcare provider may recommend watching it closely. Sometimes the signs of a serious problem take more time to appear. Many problems not related to your heart can cause chest pain. These include: Musculoskeletal. Costochondritis is an inflammation of the tissues around the ribs that can occur from trauma or overuse injuries, or a strain of the muscles of the chest wall Respiratory. Pneumonia, collapsed lung (pneumothorax), or inflammation of the lining of the chest and lungs (pleurisy) Gastrointestinal. Esophageal reflux, heartburn, ulcers, or gallbladder disease Anxiety and panic disorders Nerve compression and inflammation Rare miscellaneous problems such as aortic aneurysm (a swelling of the large artery coming out of the heart) or pulmonary embolism (a blood clot in the lungs) Home care After your visit, follow these recommendations: Rest today and avoid strenuous activity. Take any prescribed medicine as directed. Be aware of any recurrent chest pain and notice any changes Follow-up care Follow up with your healthcare provider if you do not start to feel better within 24 hours, or as advised. Call 911 Call 911 if any of these occur: A change in the type of pain: if it feels different, becomes more severe, lasts longer, or begins to spread into your shoulder, arm, neck, jaw or back Shortness of breath or increased pain with breathing Weakness, dizziness, or fainting Rapid heart beat Crushing sensation in your chest When to seek medical advice Call your healthcare provider right away if any of the following occur: Cough with dark colored sputum (phlegm) or blood Fever of 100.4 F (38 C) or higher, or as directed by your healthcare provider Swelling, pain or redness in one leg [phone] [employer]. [address] [place] [address]. All rights reserved. This information is not intended as a substitute for professional medical care. Always follow your healthcare professional's instructions. Additional Information VACCINATE! IT SAVES LIVES! Members of the community who have not yet received the COVID-19 vaccine and would like to receive it can visit one of [facility] vaccine clinics. There are many vaccine clinic locations within the [facility]. For locations and available times, please visit [email or web address]. It is important to note that some COVID mobile vaccine clinics are held outdoors and may be canceled in rainy or stormy conditions. To learn more about pediatric vaccinations (ages 5-11), we invite you to visit the [facility] webpage. [email or web address] [email or web address]-Freque beqe-[email or web address].html To learn more about the COVID-19 vaccine, we invite you to visit the [employer] website for a list of frequently asked questions. [email or web address] [email or web address] [facility] Patient Portal Access Instructions: Stay connected with your healthcare team and access your personal medical information anytime with the [facility] Patient Portal. If you would like a full copy of your medical records please contact the [facility] Medical Records Department Wednesday through Wednesday between 8a.m. and 4:30p.m. Please follow the directions below to access the portal: 1.Access the email account you provided upon registration to the hospital.2.Look for an invitation email from [facility].3.Open the email and access the invitation link: Accept Invitation to [facility]4.Fill in the required greenberg to create your account. Sign into [email or web address] with your username and password that you created in the above steps to stay up to date. You can then view a summary of results, a summary of your visits, and the ability to download your summaries to your computer or send the information securely to a physician. Remember that your healthcare information is confidential, so carefully consider who you will allow to register on the [facility] Patient Portal for access to your information. You can also access the [facility] Patient Portal on the [employer]isai. Simply click on Health Records under Health Data and then click on the [employer] logo. HOW TO SAFELY DISPOSE OF PRESCRIPTION MEDICATIONS Please use one of the following methods to safely dispose of your unused medications. 1.Use a drug disposal kit: the drug disposal pouch allows you to safely discard your old and unused drugs. Ask your nurse to give you one when you are discharged.2.Visit a local take-back location: Many local pharmacies and police departments have programs that collect old and unwanted prescription drugs. Call your local pharmacy or go to http://bit.[employer]/5K9Zm9e to find one close to you.3.Make use of household items: Use cat litter or old coffee grounds to dispose medications if other options are not available. Mix your drugs with these household products, seal them in an airtight container and throw it into the garbage. Call [facility]: [phone] to be sure your drugs can be disposed of in this way. Some medicines may require a different approach.4.Never flush your medications down the toilet. IF YOU HAVE BEEN PRESCRIBED AN OPIOIDS FOR PAIN If you have been prescribed an opioid (such as hydrocodone, oxycodone or morphine), it is critical to understand the possible side effects and risks of opioid pain medications. Even when taken as directed, opioids can have several side effects including: Tolerance, meaning you might need to take more of a medication for the same pain relief. Nausea, vomiting and/or constipation. Sleepiness, dizziness, dry mouth, confusion, depression or itching. Physical dependence, meaning you have withdrawal symptoms when a medication is stopped ? this can develop within a few days. KNOW YOUR RESPONSIBILITIES It is important to know exactly how much and how often to take the opioid pain medications you are prescribed. Never take opioids in higher amounts or more often than prescribed. Do not combine opioids with alcohol or other drugs that cause drowsiness, such as benzodiazepines, also known as benzos, including diazepam and alprazolam, muscle relaxants or sleep aids. Never sell or share prescription opioids. This is illegal. Store opioids in a secure place and out of reach of others (including children, family, friends and visitors). The last page(s) of this document has been signed and retained as a CHART COPY Signatures Patient Education Materials Chest Pain, Uncertain Cause Medication Leaflets My discharge plan and instructions have been reviewed and explained to me and I,BOLA MA understand my current condition and have read and understand these discharge instructions. I have received a written copy of the plan/instructions. If I have questions, I am aware that I should contact my doctor. Patient/Commercial Decorator Signature: Date/Time: Relationship to Patient: ____ Witness Name/Signature: Date/Time: [facility] 02-15-2022 Note ORIGINAL EXAMINATION: ONE XRAY VIEW OF THE CHEST02/15/2022 6:58 pm COMPARISON: Chest x-ray December 20, 2020 HISTORY: ORDERING SYSTEM PROVIDED HISTORY: Reason for Exam: chest pain FINDINGS: The cardiomediastinal silhouette is within normal limits. No significant pulmonary vascular congestion. Linear densities noted in the bilateral lung bases, favoring subsegmental atelectasis. No focal consolidation, pneumothorax or pleural effusion. No acute osseous abnormality. IMPRESSION: Findings suggestive of subsegmental atelectasis in the bilateral lung bases with additional airspace disease not excluded. I have personally reviewed the images of this examination and agree with the resident's findings and interpretation. Interpreted by: Jefferson Reardon MD Preliminary Report By: Magdalena Dubon Electronically signed By Jefferson Reardon MD Dictated Date: 02/15/2022 7:37:36 PM Prelim Date: 02/15/2022 7:39:22 PM Sign Date: 02/15/2022 7:57:35 PM Ordering Provider: MARJAN MATOS [facility] Evaluation + Plan note No data available for this section [facility] Hospital Discharge instructions No data available for this section [facility]; [facility] Work Phone: Instructions* Name Dates Details Patient Instructions Indication:Tobacco user Start:26-Jul-2020 Instruction Type:Provider Instructions for Treatment How to Access Health Informa tion Online using Patient Portal and 3rd [employer] Apps Indication:Tobacco user Start:26-Jul-2020 Instruction Type:Patient Education How to access health informa tion online Indication:Tobacco user Start:17-Apr-2019 Instruction Type:Patient Education How to access health informa tion online - Detail Indication:Tobacco user Start:17-Apr-2019 Instruction Type:Patient Education Patient Instructions Indication:Tobacco user Start:17-Apr-2019 Instruction Type:Provider Instructions for Treatment How to access health informa tion online - Detail Indication:Anxiety Start:10-Feb-2019 Instruction Type:Patient Education Patient Instructions Indication:Anxiety Start:10-Feb-2019 Instruction Type:Provider Instructions for Treatment How to access health informa tion online Indication:Tobacco user Start:23-Feb-2018 Instruction Type:Patient Education How to access health informa tion online - Detail Indication:Tobacco user Start:23-Feb-2018 Instruction Type:Patient Education Patient Instructions Indication:Tobacco user Start:23-Feb-2018 Instruction Type:Provider Instructions for Treatment [facility]; [facility] Work Phone: instructions* Name Dates Details Patient Instructions Indication:Tobacco user Start:10-Oct-2021 Instruction Type:Provider Instructions for Treatment How to Access Health Informa tion Online using Patient Portal and [employer]rd [employer] Apps Indication:Tobacco user Start:10-Oct-2021 Instruction Type:Patient Education Patient Instructions Indication:Tobacco user Start:26-Jul-2020 Instruction Type:Provider Instructions for Treatment How to Access Health Informa tion Online using Patient Portal and [employer]rd [employer] Indication:Tobacco user Start:26-Jul-2020 Instruction Type:Patient Education How to access health informa tion online Indication:Tobacco user Start:17-Apr-2019 Instruction Type:Patient Education How to access health informa tion online - Detail Indication:Tobacco user Start:17-Apr-2019 Instruction Type:Patient Education Patient Instructions Indication:Tobacco user Start:17-Apr-2019 Instruction Type:Provider Instructions for Treatment How to access health informa tion online - Detail Indication:Anxiety Start:10-Feb-2019 Instruction Type:Patient Education Patient Instructions Indication:Anxiety Start:10-Feb-2019 Instruction Type:Provider Instructions for Treatment How to access health informa tion online Indication:Tobacco user Start:23-Feb-2018 Instruction Type:Patient Education How to access health informa tion online - Detail Indication:Tobacco user Start:23-Feb-2018 Instruction Type:Patient Education Patient Instructions Indication:Tobacco user Start:23-Feb-2018 Instruction Type:Provider Instructions for Treatment [facility]; [facility] Work Phone: instructions* Name Dates Details Patient Instructions Indication:Tobacco user Start:10-Oct-2021 Instruction Type:Provider Instructions for Treatment How to Access Health Informa tion Online using Patient Portal and [employer]rd [employer] Apps Indication:Tobacco user Start:10-Oct-2021 Instruction Type:Patient Education Patient Instructions Indication:Tobacco user Start:26-Jul-2020 Instruction Type:Provider Instructions for Treatment How to Access Health Informa tion Online using Patient Portal and [employer]rd [employer] Apps Indication:Tobacco user Start:26-Jul-2020 Instruction Type:Patient Education How to access health informa tion online Indication:Tobacco user Start:17-Apr-2019 Instruction Type:Patient Education How to access health informa tion online - Detail Indication:Tobacco user Start:17-Apr-2019 Instruction Type:Patient Education Patient Instructions Indication:Tobacco user Start:17-Apr-2019 Instruction Type:Provider Instructions for Treatment How to access health informa tion online - Detail Indication:Anxiety Start:10-Feb-2019 Instruction Type:Patient Education Patient Instructions Indication:Anxiety Start:10-Feb-2019 Instruction Type:Provider Instructions for Treatment How to access health informa tion online Indication:Tobacco user Start:23-Feb-2018 Instruction Type:Patient Education How to access health informa tion online - Detail Indication:Tobacco user Start:23-Feb-2018 Instruction Type:Patient Education Patient Instructions Indication:Tobacco user Start:23-Feb-2018 Instruction Type:Provider Instructions for Treatment [facility]; [facility] Work Phone: instructions* Name Dates Details Patient Instructions Indication:Tobacco user Start:10-Oct-2021 Instruction Type:Provider Instructions for Treatment How to Access Health Informa tion Online using Patient Portal and [employer]rd [employer] Apps Indication:Tobacco user Start:10-Oct-2021 Instruction Type:Patient Education Patient Instructions Indication:Tobacco user Start:26-Jul-2020 Instruction Type:Provider Instructions for Treatment How to Access Health Informa tion Online using Patient Portal and [employer]rd [employer] Apps Indication:Tobacco user Start:26-Jul-2020 Instruction Type:Patient Education How to access health informa tion online Indication:Tobacco user Start:17-Apr-2019 Instruction Type:Patient Education How to access health informa tion online - Detail Indication:Tobacco user Start:17-Apr-2019 Instruction Type:Patient Education Patient Instructions Indication:Tobacco user Start:17-Apr-2019 Instruction Type:Provider Instructions for Treatment How to access health informa tion online - Detail Indication:Anxiety Start:10-Feb-2019 Instruction Type:Patient Education Patient Instructions Indication:Anxiety Start:10-Feb-2019 Instruction Type:Provider Instructions for Treatment How to access health informa tion online Indication:Tobacco user Start:23-Feb-2018 Instruction Type:Patient Education How to access health informa tion online - Detail Indication:Tobacco user Start:23-Feb-2018 Instruction Type:Patient Education Patient Instructions Indication:Tobacco user Start:23-Feb-2018 Instruction Type:Provider Instructions for Treatment [facility]; [facility] Work Phone: instructions* Name Dates Details Patient Instructions Indication:Tobacco user Start:13-Feb-2022 Instruction Type:Provider Instructions for Treatment How to Access Health Informa tion Online using Patient Portal and [employer]rd [employer] Apps Indication:Tobacco user Start:13-Feb-2022 Instruction Type:Patient Education Patient Instructions Indication:Tobacco user Start:10-Oct-2021 Instruction Type:Provider Instructions for Treatment How to Access Health Informa tion Online using Patient Portal and [employer]rd [employer] Apps Indication:Tobacco user Start:10-Oct-2021 Instruction Type:Patient Education Patient Instructions Indication:Tobacco user Start:26-Jul-2020 Instruction Type:Provider Instructions for Treatment How to Access Health Informa tion Online using Patient Portal and [employer]rd [employer] Apps Indication:Tobacco user Start:26-Jul-2020 Instruction Type:Patient Education How to access health informa tion online Indication:Tobacco user Start:17-Apr-2019 Instruction Type:Patient Education How to access health informa tion online - Detail Indication:Tobacco user Start:17-Apr-2019 Instruction Type:Patient Education Patient Instructions Indication:Tobacco user Start:17-Apr-2019 Instruction Type:Provider Instructions for Treatment How to access health informa tion online - Detail Indication:Anxiety Start:10-Feb-2019 Instruction Type:Patient Education Patient Instructions Indication:Anxiety Start:10-Feb-2019 Instruction Type:Provider Instructions for Treatment How to access health informa tion online Indication:Tobacco user Start:23-Feb-2018 Instruction Type:Patient Education How to access health informa tion online - Detail Indication:Tobacco user Start:23-Feb-2018 Instruction Type:Patient Education Patient Instructions Indication:Tobacco user Start:23-Feb-2018 Instruction Type:Provider Instructions for Treatment [facility]; [facility] Work Phone: Instructions* Name Dates Details Patient Instructions Indication:Tobacco user Start:13-Feb-2022 Instruction Type:Provider Instructions for Treatment How to Access Health Informa tion Online using Patient Portal and [employer]rd [employer] Apps Indication:Tobacco user Start:13-Feb-2022 Instruction Type:Patient Education Patient Instructions Indication:Tobacco user Start:10-Oct-2021 Instruction Type:Provider Instructions for Treatment How to Access Health Informa tion Online using Patient Portal and [employer]rd [employer] Apps Indication:Tobacco user Start:10-Oct-2021 Instruction Type:Patient Education Patient Instructions Indication:Tobacco user Start:26-Jul-2020 Instruction Type:Provider Instructions for Treatment How to Access Health Informa tion Online using Patient Portal and [employer]rd [employer] Apps Indication:Tobacco user Start:26-Jul-2020 Instruction Type:Patient Education How to access health informa tion online Indication:Tobacco user Start:17-Apr-2019 Instruction Type:Patient Education How to access health informa tion online - Detail Indication:Tobacco user Start:17-Apr-2019 Instruction Type:Patient Education Patient Instructions Indication:Tobacco user Start:17-Apr-2019 Instruction Type:Provider Instructions for Treatment How to access health informa tion online - Detail Indication:Anxiety Start:10-Feb-2019 Instruction Type:Patient Education Patient Instructions Indication:Anxiety Start:10-Feb-2019 Instruction Type:Provider Instructions for Treatment How to access health informa tion online Indication:Tobacco user Start:23-Feb-2018 Instruction Type:Patient Education How to access health informa tion online - Detail Indication:Tobacco user Start:23-Feb-2018 Instruction Type:Patient Education Patient Instructions Indication:Tobacco user Start:23-Feb-2018 Instruction Type:Provider Instructions for Treatment [facility]; [facility] Work Phone: Instructions* Name Dates Details Patient Instructions Indication:Tobacco user Start:20-Mar-2022 Instruction Type:Provider Instructions for Treatment How to Access Health Informa tion Online using Patient Portal and [employer]rd [employer] Apps Indication:Tobacco user Start:20-Mar-2022 Instruction Type:Patient Education Patient Instructions Indication:Tobacco user Start:13-Feb-2022 Instruction Type:Provider Instructions for Treatment How to Access Health Informa tion Online using Patient Portal and [employer] Apps Indication:Tobacco user Start:13-Feb-2022 Instruction Type:Patient Education Patient Instructions Indication:Tobacco user Start:10-Oct-2021 Instruction Type:Provider Instructions for Treatment How to Access Health Informa tion Online using Patient Portal and [employer] Apps Indication:Tobacco user Start:10-Oct-2021 Instruction Type:Patient Education Patient Instructions Indication:Tobacco user Start:26-Jul-2020 Instruction Type:Provider Instructions for Treatment How to Access Health Informa tion Online using Patient Portal and [employer] Apps Indication:Tobacco user Start:26-Jul-2020 Instruction Type:Patient Education How to access health informa tion online Indication:Tobacco user Start:17-Apr-2019 Instruction Type:Patient Education How to access health informa tion online - Detail Indication:Tobacco user Start:17-Apr-2019 Instruction Type:Patient Education Patient Instructions Indication:Tobacco user Start:17-Apr-2019 Instruction Type:Provider Instructions for Treatment How to access health informa tion online - Detail Indication:Anxiety Start:10-Feb-2019 Instruction Type:Patient Education Patient Instructions Indication:Anxiety Start:10-Feb-2019 Instruction Type:Provider Instructions for Treatment How to access health informa tion online Indication:Tobacco user Start:23-Feb-2018 Instruction Type:Patient Education How to access health informa tion online - Detail Indication:Tobacco user Start:23-Feb-2018 Instruction Type:Patient Education Patient Instructions Indication:Tobacco user Start:23-Feb-2018 Instruction Type:Provider Instructions for Treatment [facility]; [facility] Work Phone: Instructions* Name Dates Details Patient Instructions Indication:Tobacco user Start:20-Mar-2022 Instruction Type:Provider Instructions for Treatment How to Access Health Informa tion Online using Patient Portal and [employer] Apps Indication:Tobacco user Start:20-Mar-2022 Instruction Type:Patient Education Patient Instructions Indication:Tobacco user Start:13-Feb-2022 Instruction Type:Provider Instructions for Treatment How to Access Health Informa tion Online using Patient Portal and [employer] Apps Indication:Tobacco user Start:13-Feb-2022 Instruction Type:Patient Education Patient Instructions Indication:Tobacco user Start:10-Oct-2021 Instruction Type:Provider Instructions for Treatment How to Access Health Informa tion Online using Patient Portal and [employer] Apps Indication:Tobacco user Start:10-Oct-2021 Instruction Type:Patient Education Patient Instructions Indication:Tobacco user Start:26-Jul-2020 Instruction Type:Provider Instructions for Treatment How to Access Health Informa tion Online using Patient Portal and [employer] Apps Indication:Tobacco user Start:26-Jul-2020 Instruction Type:Patient Education How to access health informa tion online Indication:Tobacco user Start:17-Apr-2019 Instruction Type:Patient Education How to access health informa tion online - Detail Indication:Tobacco user Start:17-Apr-2019 Instruction Type:Patient Education Patient Instructions Indication:Tobacco user Start:17-Apr-2019 Instruction Type:Provider Instructions for Treatment How to access health informa tion online - Detail Indication:Anxiety Start:10-Feb-2019 Instruction Type:Patient Education Patient Instructions Indication:Anxiety Start:10-Feb-2019 Instruction Type:Provider Instructions for Treatment How to access health informa tion online Indication:Tobacco user Start:23-Feb-2018 Instruction Type:Patient Education How to access health informa tion online - Detail Indication:Tobacco user Start:23-Feb-2018 Instruction Type:Patient Education Patient Instructions Indication:Tobacco user Start:23-Feb-2018 Instruction Type:Provider Instructions for Treatment [facility]; [facility] Work Phone: Instructions* Name Dates Details How to Access Health Informa tion Online using Patient Portal and [employer]rd [employer] Apps Indication:Tobacco user Start:24-Jul-2022 Instruction Type:Patient Education Patient Instructions Indication:Tobacco user Start:24-Jul-2022 Instruction Type:Provider Instructions for Treatment Patient Instructions Indication:Tobacco user Start:20-Mar-2022 Instruction Type:Provider Instructions for Treatment How to Access Health Informa tion Online using Patient Portal and [employer] Apps Indication:Tobacco user Start:20-Mar-2022 Instruction Type:Patient Education Patient Instructions Indication:Tobacco user Start:13-Feb-2022 Instruction Type:Provider Instructions for Treatment How to Access Health Informa tion Online using Patient Portal and [employer] Apps Indication:Tobacco user Start:13-Feb-2022 Instruction Type:Patient Education Patient Instructions Indication:Tobacco user Start:10-Oct-2021 Instruction Type:Provider Instructions for Treatment How to Access Health Informa tion Online using Patient Portal and [employer]rd [employer] Apps Indication:Tobacco user Start:10-Oct-2021 Instruction Type:Patient Education Patient Instructions Indication:Tobacco user Start:26-Jul-2020 Instruction Type:Provider Instructions for Treatment How to Access Health Informa tion Online using Patient Portal and [employer] Apps Indication:Tobacco user Start:26-Jul-2020 Instruction Type:Patient Education How to access health informa tion online Indication:Tobacco user Start:17-Apr-2019 Instruction Type:Patient Education How to access health informa tion online - Detail Indication:Tobacco user Start:17-Apr-2019 Instruction Type:Patient Education Patient Instructions Indication:Tobacco user Start:17-Apr-2019 Instruction Type:Provider Instructions for Treatment How to access health informa tion online - Detail Indication:Anxiety Start:10-Feb-2019 Instruction Type:Patient Education Patient Instructions Indication:Anxiety Start:10-Feb-2019 Instruction Type:Provider Instructions for Treatment How to access health informa tion online Indication:Tobacco user Start:23-Feb-2018 Instruction Type:Patient Education How to access health informa tion online - Detail Indication:Tobacco user Start:23-Feb-2018 Instruction Type:Patient Education Patient Instructions Indication:Tobacco user Start:23-Feb-2018 Instruction Type:Provider Instructions for Treatment [facility]; [facility] Work Phone: Instructions* Name Dates Details How to Access Health Informa tion Online using Patient Portal and [employer] Apps Indication:Tobacco user Start:24-Jul-2022 Instruction Type:Patient Education Patient Instructions Indication:Tobacco user Start:24-Jul-2022 Instruction Type:Provider Instructions for Treatment Patient Instructions Indication:Tobacco user Start:20-Mar-2022 Instruction Type:Provider Instructions for Treatment How to Access Health Informa tion Online using Patient Portal and [employer] Apps Indication:Tobacco user Start:20-Mar-2022 Instruction Type:Patient Education Patient Instructions Indication:Tobacco user Start:13-Feb-2022 Instruction Type:Provider Instructions for Treatment How to Access Health Informa tion Online using Patient Portal and [employer] Apps Indication:Tobacco user Start:13-Feb-2022 Instruction Type:Patient Education Patient Instructions Indication:Tobacco user Start:10-Oct-2021 Instruction Type:Provider Instructions for Treatment How to Access Health Informa tion Online using Patient Portal and [employer] Apps Indication:Tobacco user Start:10-Oct-2021 Instruction Type:Patient Education Patient Instructions Indication:Tobacco user Start:26-Jul-2020 Instruction Type:Provider Instructions for Treatment How to Access Health Informa tion Online using Patient Portal and [employer] Apps Indication:Tobacco user Start:26-Jul-2020 Instruction Type:Patient Education How to access health informa tion online Indication:Tobacco user Start:17-Apr-2019 Instruction Type:Patient Education How to access health informa tion online - Detail Indication:Tobacco user Start:17-Apr-2019 Instruction Type:Patient Education Patient Instructions Indication:Tobacco user Start:17-Apr-2019 Instruction Type:Provider Instructions for Treatment How to access health informa tion online - Detail Indication:Anxiety Start:10-Feb-2019 Instruction Type:Patient Education Patient Instructions Indication:Anxiety Start:10-Feb-2019 Instruction Type:Provider Instructions for Treatment How to access health informa tion online Indication:Tobacco user Start:23-Feb-2018 Instruction Type:Patient Education How to access health informa tion online - Detail Indication:Tobacco user Start:23-Feb-2018 Instruction Type:Patient Education Patient Instructions Indication:Tobacco user Start:23-Feb-2018 Instruction Type:Provider Instructions for Treatment [facility]; [facility] Work Phone: Instructions* Name Dates Details How to Access Health Informa tion Online using Patient Portal and [employer] Apps Indication:Tobacco user Start:24-Jul-2022 Instruction Type:Patient Education Patient Instructions Indication:Tobacco user Start:24-Jul-2022 Instruction Type:Provider Instructions for Treatment Patient Instructions Indication:Tobacco user Start:20-Mar-2022 Instruction Type:Provider Instructions for Treatment How to Access Health Informa tion Online using Patient Portal and [employer] Apps Indication:Tobacco user Start:20-Mar-2022 Instruction Type:Patient Education Patient Instructions Indication:Tobacco user Start:13-Feb-2022 Instruction Type:Provider Instructions for Treatment How to Access Health Informa tion Online using Patient Portal and [employer] Apps Indication:Tobacco user Start:13-Feb-2022 Instruction Type:Patient Education Patient Instructions Indication:Tobacco user Start:10-Oct-2021 Instruction Type:Provider Instructions for Treatment How to Access Health Informa tion Online using Patient Portal and [employer]rd [employer] Apps Indication:Tobacco user Start:10-Oct-2021 Instruction Type:Patient Education Patient Instructions Indication:Tobacco user Start:26-Jul-2020 Instruction Type:Provider Instructions for Treatment How to Access Health Informa tion Online using Patient Portal and [employer] Apps Indication:Tobacco user Start:26-Jul-2020 Instruction Type:Patient Education How to access health informa tion online Indication:Tobacco user Start:17-Apr-2019 Instruction Type:Patient Education How to access health informa tion online - Detail Indication:Tobacco user Start:17-Apr-2019 Instruction Type:Patient Education Patient Instructions Indication:Tobacco user Start:17-Apr-2019 Instruction Type:Provider Instructions for Treatment How to access health informa tion online - Detail Indication:Anxiety Start:10-Feb-2019 Instruction Type:Patient Education Patient Instructions Indication:Anxiety Start:10-Feb-2019 Instruction Type:Provider Instructions for Treatment How to access health informa tion online Indication:Tobacco user Start:23-Feb-2018 Instruction Type:Patient Education How to access health informa tion online - Detail Indication:Tobacco user Start:23-Feb-2018 Instruction Type:Patient Education Patient Instructions Indication:Tobacco user Start:23-Feb-2018 Instruction Type:Provider Instructions for Treatment [facility]; [facility] Work Phone: Instructions* Name Dates Details How to Access Health Informa tion Online using Patient Portal and [employer] Apps Indication:Tobacco user Start:24-Jul-2022 Instruction Type:Patient Education Patient Instructions Indication:Tobacco user Start:24-Jul-2022 Instruction Type:Provider Instructions for Treatment Patient Instructions Indication:Tobacco user Start:20-Mar-2022 Instruction Type:Provider Instructions for Treatment How to Access Health Informa tion Online using Patient Portal and [employer]rd [employer] Apps Indication:Tobacco user Start:20-Mar-2022 Instruction Type:Patient Education Patient Instructions Indication:Tobacco user Start:13-Feb-2022 Instruction Type:Provider Instructions for Treatment How to Access Health Informa tion Online using Patient Portal and [employer] Apps Indication:Tobacco user Start:13-Feb-2022 Instruction Type:Patient Education Patient Instructions Indication:Tobacco user Start:10-Oct-2021 Instruction Type:Provider Instructions for Treatment How to Access Health Informa tion Online using Patient Portal and [employer] Apps Indication:Tobacco user Start:10-Oct-2021 Instruction Type:Patient Education Patient Instructions Indication:Tobacco user Start:26-Jul-2020 Instruction Type:Provider Instructions for Treatment How to Access Health Informa tion Online using Patient Portal and [employer] Apps Indication:Tobacco user Start:26-Jul-2020 Instruction Type:Patient Education How to access health informa tion online Indication:Tobacco user Start:17-Apr-2019 Instruction Type:Patient Education How to access health informa tion online - Detail Indication:Tobacco user Start:17-Apr-2019 Instruction Type:Patient Education Patient Instructions Indication:Tobacco user Start:17-Apr-2019 Instruction Type:Provider Instructions for Treatment How to access health informa tion online - Detail Indication:Anxiety Start:10-Feb-2019 Instruction Type:Patient Education Patient Instructions Indication:Anxiety Start:10-Feb-2019 Instruction Type:Provider Instructions for Treatment How to access health informa tion online Indication:Tobacco user Start:23-Feb-2018 Instruction Type:Patient Education How to access health informa tion online - Detail Indication:Tobacco user Start:23-Feb-2018 Instruction Type:Patient Education Patient Instructions Indication:Tobacco user Start:23-Feb-2018 Instruction Type:Provider Instructions for Treatment [facility]; [facility] Work Phone: Instructions* Name Dates Details Patient Instructions Indication:Insomnia, persistent Start:16-Dec-2022 Instruction Type:Provider Instructions for Treatment How to Access Health Informa tion Online using Patient Portal and [employer] Apps Indication:Insomnia, persistent Start:16-Dec-2022 Instruction Type:Patient Education How to Access Health Informa tion Online using Patient Portal and [employer] Apps Indication:Tobacco user Start:24-Jul-2022 Instruction Type:Patient Education Patient Instructions Indication:Tobacco user Start:24-Jul-2022 Instruction Type:Provider Instructions for Treatment Patient Instructions Indication:Tobacco user Start:20-Mar-2022 Instruction Type:Provider Instructions for Treatment How to Access Health Informa tion Online using Patient Portal and [employer] Apps Indication:Tobacco user Start:20-Mar-2022 Instruction Type:Patient Education Patient Instructions Indication:Tobacco user Start:13-Feb-2022 Instruction Type:Provider Instructions for Treatment How to Access Health Informa tion Online using Patient Portal and [employer] Apps Indication:Tobacco user Start:13-Feb-2022 Instruction Type:Patient Education Patient Instructions Indication:Tobacco user Start:10-Oct-2021 Instruction Type:Provider Instructions for Treatment How to Access Health Informa tion Online using Patient Portal and [employer] Apps Indication:Tobacco user Start:10-Oct-2021 Instruction Type:Patient Education Patient Instructions Indication:Tobacco user Start:26-Jul-2020 Instruction Type:Provider Instructions for Treatment How to Access Health Informa tion Online using Patient Portal and 3rd [employer] Apps Indication:Tobacco user Start:26-Jul-2020 Instruction Type:Patient Education How to access health informa tion online Indication:Tobacco user Start:17-Apr-2019 Instruction Type:Patient Education How to access health informa tion online - Detail Indication:Tobacco user Start:17-Apr-2019 Instruction Type:Patient Education Patient Instructions Indication:Tobacco user Start:17-Apr-2019 Instruction Type:Provider Instructions for Treatment How to access health informa tion online - Detail Indication:Anxiety Start:10-Feb-2019 Instruction Type:Patient Education Patient Instructions Indication:Anxiety Start:10-Feb-2019 Instruction Type:Provider Instructions for Treatment How to access health informa tion online Indication:Tobacco user Start:23-Feb-2018 Instruction Type:Patient Education How to access health informa tion online - Detail Indication:Tobacco user Start:23-Feb-2018 Instruction Type:Patient Education Patient Instructions Indication:Tobacco user Start:23-Feb-2018 Instruction Type:Provider Instructions for Treatment [facility]; [facility] Work Phone: Instructions* Name Dates Details Patient Instructions Indication:Insomnia, persistent Start:16-Dec-2022 Instruction Type:Provider Instructions for Treatment How to Access Health Informa tion Online using Patient Portal and 3rd [employer] Apps Indication:Insomnia, persistent Start:16-Dec-2022 Instruction Type:Patient Education How to Access Health Informa tion Online using Patient Portal and 3rd [employer] Apps Indication:Tobacco user Start:24-Jul-2022 Instruction Type:Patient Education Patient Instructions Indication:Tobacco user Start:24-Jul-2022 Instruction Type:Provider Instructions for Treatment Patient Instructions Indication:Tobacco user Start:20-Mar-2022 Instruction Type:Provider Instructions for Treatment How to Access Health Informa tion Online using Patient Portal and 3rd [employer] Apps Indication:Tobacco user Start:20-Mar-2022 Instruction Type:Patient Education Patient Instructions Indication:Tobacco user Start:13-Feb-2022 Instruction Type:Provider Instructions for Treatment How to Access Health Informa tion Online using Patient Portal and 3rd [employer] Apps Indication:Tobacco user Start:13-Feb-2022 Instruction Type:Patient Education Patient Instructions Indication:Tobacco user Start:10-Oct-2021 Instruction Type:Provider Instructions for Treatment How to Access Health Informa tion Online using Patient Portal and 3rd [employer] Apps Indication:Tobacco user Start:10-Oct-2021 Instruction Type:Patient Education Patient Instructions Indication:Tobacco user Start:26-Jul-2020 Instruction Type:Provider Instructions for Treatment How to Access Health Informa tion Online using Patient Portal and [employer]rd [employer] Apps Indication:Tobacco user Start:26-Jul-2020 Instruction Type:Patient Education How to access health informa tion online Indication:Tobacco user Start:17-Apr-2019 Instruction Type:Patient Education How to access health informa tion online - Detail Indication:Tobacco user Start:17-Apr-2019 Instruction Type:Patient Education Patient Instructions Indication:Tobacco user Start:17-Apr-2019 Instruction Type:Provider Instructions for Treatment How to access health informa tion online - Detail Indication:Anxiety Start:10-Feb-2019 Instruction Type:Patient Education Patient Instructions Indication:Anxiety Start:10-Feb-2019 Instruction Type:Provider Instructions for Treatment How to access health informa tion online Indication:Tobacco user Start:23-Feb-2018 Instruction Type:Patient Education How to access health informa tion online - Detail Indication:Tobacco user Start:23-Feb-2018 Instruction Type:Patient Education Patient Instructions Indication:Tobacco user Start:23-Feb-2018 Instruction Type:Provider Instructions for Treatment [facility]; [facility] Work Phone: Instructions* Name Dates Details Patient Instructions Indication:Insomnia, persistent Start:16-Dec-2022 Instruction Type:Provider Instructions for Treatment How to Access Health Informa tion Online using Patient Portal and [employer]rd [employer] Apps Indication:Insomnia, persistent Start:16-Dec-2022 Instruction Type:Patient Education How to Access Health Informa tion Online using Patient Portal and [employer]rd [employer] Apps Indication:Tobacco user Start:24-Jul-2022 Instruction Type:Patient Education Patient Instructions Indication:Tobacco user Start:24-Jul-2022 Instruction Type:Provider Instructions for Treatment Patient Instructions Indication:Tobacco user Start:20-Mar-2022 Instruction Type:Provider Instructions for Treatment How to Access Health Informa tion Online using Patient Portal and [employer]rd [employer] Apps Indication:Tobacco user Start:20-Mar-2022 Instruction Type:Patient Education Patient Instructions Indication:Tobacco user Start:13-Feb-2022 Instruction Type:Provider Instructions for Treatment How to Access Health Informa tion Online using Patient Portal and [employer]rd [employer] Apps Indication:Tobacco user Start:13-Feb-2022 Instruction Type:Patient Education Patient Instructions Indication:Tobacco user Start:10-Oct-2021 Instruction Type:Provider Instructions for Treatment How to Access Health Informa tion Online using Patient Portal and [employer]rd [employer] Apps Indication:Tobacco user Start:10-Oct-2021 Instruction Type:Patient Education Patient Instructions Indication:Tobacco user Start:26-Jul-2020 Instruction Type:Provider Instructions for Treatment How to Access Health Informa tion Online using Patient Portal and [employer]rd [employer] Apps Indication:Tobacco user Start:26-Jul-2020 Instruction Type:Patient Education How to access health informa tion online Indication:Tobacco user Start:17-Apr-2019 Instruction Type:Patient Education How to access health informa tion online - Detail Indication:Tobacco user Start:17-Apr-2019 Instruction Type:Patient Education Patient Instructions Indication:Tobacco user Start:17-Apr-2019 Instruction Type:Provider Instructions for Treatment How to access health informa tion online - Detail Indication:Anxiety Start:10-Feb-2019 Instruction Type:Patient Education Patient Instructions Indication:Anxiety Start:10-Feb-2019 Instruction Type:Provider Instructions for Treatment How to access health informa tion online Indication:Tobacco user Start:23-Feb-2018 Instruction Type:Patient Education How to access health informa tion online - Detail Indication:Tobacco user Start:23-Feb-2018 Instruction Type:Patient Education Patient Instructions Indication:Tobacco user Start:23-Feb-2018 Instruction Type:Provider Instructions for Treatment [facility]; [facility] Work Phone: Instructions* Name Dates Details Patient Instructions Indication:Insomnia, persistent Start:16-Dec-2022 Instruction Type:Provider Instructions for Treatment How to Access Health Informa tion Online using Patient Portal and [employer]rd [employer] Apps Indication:Insomnia, persistent Start:16-Dec-2022 Instruction Type:Patient Education How to Access Health Informa tion Online using Patient Portal and 3rd [employer] Apps Indication:Tobacco user Start:24-Jul-2022 Instruction Type:Patient Education Patient Instructions Indication:Tobacco user Start:24-Jul-2022 Instruction Type:Provider Instructions for Treatment Patient Instructions Indication:Tobacco user Start:20-Mar-2022 Instruction Type:Provider Instructions for Treatment How to Access Health Informa tion Online using Patient Portal and [employer]rd [employer] Apps Indication:Tobacco user Start:20-Mar-2022 Instruction Type:Patient Education Patient Instructions Indication:Tobacco user Start:13-Feb-2022 Instruction Type:Provider Instructions for Treatment How to Access Health Informa tion Online using Patient Portal and [employer]rd [employer] Apps Indication:Tobacco user Start:13-Feb-2022 Instruction Type:Patient Education Patient Instructions Indication:Tobacco user Start:10-Oct-2021 Instruction Type:Provider Instructions for Treatment How to Access Health Informa tion Online using Patient Portal and [employer]rd [employer] Apps Indication:Tobacco user Start:10-Oct-2021 Instruction Type:Patient Education Patient Instructions Indication:Tobacco user Start:26-Jul-2020 Instruction Type:Provider Instructions for Treatment How to Access Health Informa tion Online using Patient Portal and [employer]rd [employer] Apps Indication:Tobacco user Start:26-Jul-2020 Instruction Type:Patient Education How to access health informa tion online Indication:Tobacco user Start:17-Apr-2019 Instruction Type:Patient Education How to access health informa tion online - Detail Indication:Tobacco user Start:17-Apr-2019 Instruction Type:Patient Education Patient Instructions Indication:Tobacco user Start:17-Apr-2019 Instruction Type:Provider Instructions for Treatment How to access health informa tion online - Detail Indication:Anxiety Start:10-Feb-2019 Instruction Type:Patient Education Patient Instructions Indication:Anxiety Start:10-Feb-2019 Instruction Type:Provider Instructions for Treatment How to access health informa tion online Indication:Tobacco user Start:23-Feb-2018 Instruction Type:Patient Education How to access health informa tion online - Detail Indication:Tobacco user Start:23-Feb-2018 Instruction Type:Patient Education Patient Instructions Indication:Tobacco user Start:23-Feb-2018 Instruction Type:Provider Instructions for Treatment [facility]; [facility] Work Phone: Instructions* Name Dates Details Patient Instructions Indication:Insomnia, persistent Start:16-Dec-2022 Instruction Type:Provider Instructions for Treatment How to Access Health Informa tion Online using Patient Portal and [employer]rd [employer] Apps Indication:Insomnia, persistent Start:16-Dec-2022 Instruction Type:Patient Education How to Access Health Informa tion Online using Patient Portal and [employer]rd [employer] Apps Indication:Tobacco user Start:24-Jul-2022 Instruction Type:Patient Education Patient Instructions Indication:Tobacco user Start:24-Jul-2022 Instruction Type:Provider Instructions for Treatment Patient Instructions Indication:Tobacco user Start:20-Mar-2022 Instruction Type:Provider Instructions for Treatment How to Access Health Informa tion Online using Patient Portal and [employer]rd [employer] Apps Indication:Tobacco user Start:20-Mar-2022 Instruction Type:Patient Education Patient Instructions Indication:Tobacco user Start:13-Feb-2022 Instruction Type:Provider Instructions for Treatment How to Access Health Informa tion Online using Patient Portal and [employer]rd [employer] Apps Indication:Tobacco user Start:13-Feb-2022 Instruction Type:Patient Education Patient Instructions Indication:Tobacco user Start:10-Oct-2021 Instruction Type:Provider Instructions for Treatment How to Access Health Informa tion Online using Patient Portal and [employer]rd [employer] Apps Indication:Tobacco user Start:10-Oct-2021 Instruction Type:Patient Education Patient Instructions Indication:Tobacco user Start:26-Jul-2020 Instruction Type:Provider Instructions for Treatment How to Access Health Informa tion Online using Patient Portal and [employer]rd [employer] Apps Indication:Tobacco user Start:26-Jul-2020 Instruction Type:Patient Education How to access health informa tion online Indication:Tobacco user Start:17-Apr-2019 Instruction Type:Patient Education How to access health informa tion online - Detail Indication:Tobacco user Start:17-Apr-2019 Instruction Type:Patient Education Patient Instructions Indication:Tobacco user Start:17-Apr-2019 Instruction Type:Provider Instructions for Treatment How to access health informa tion online - Detail Indication:Anxiety Start:10-Feb-2019 Instruction Type:Patient Education Patient Instructions Indication:Anxiety Start:10-Feb-2019 Instruction Type:Provider Instructions for Treatment How to access health informa tion online Indication:Tobacco user Start:23-Feb-2018 Instruction Type:Patient Education How to access health informa tion online - Detail Indication:Tobacco user Start:23-Feb-2018 Instruction Type:Patient Education Patient Instructions Indication:Tobacco user Start:23-Feb-2018 Instruction Type:Provider Instructions for Treatment [facility]; [facility] Work Phone: Instructions* Name Dates Details Patient Instructions Indication:Insomnia, persistent Start:16-Dec-2022 Instruction Type:Provider Instructions for Treatment How to Access Health Informa tion Online using Patient Portal and [employer]rd [employer] Apps Indication:Insomnia, persistent Start:16-Dec-2022 Instruction Type:Patient Education How to Access Health Informa tion Online using Patient Portal and 3rd [employer] Apps Indication:Tobacco user Start:24-Jul-2022 Instruction Type:Patient Education Patient Instructions Indication:Tobacco user Start:24-Jul-2022 Instruction Type:Provider Instructions for Treatment Patient Instructions Indication:Tobacco user Start:20-Mar-2022 Instruction Type:Provider Instructions for Treatment How to Access Health Informa tion Online using Patient Portal and 3rd [employer] Apps Indication:Tobacco user Start:20-Mar-2022 Instruction Type:Patient Education Patient Instructions Indication:Tobacco user Start:13-Feb-2022 Instruction Type:Provider Instructions for Treatment How to Access Health Informa tion Online using Patient Portal and 3rd [employer] Apps Indication:Tobacco user Start:13-Feb-2022 Instruction Type:Patient Education Patient Instructions Indication:Tobacco user Start:10-Oct-2021 Instruction Type:Provider Instructions for Treatment How to Access Health Informa tion Online using Patient Portal and 3rd [employer] Apps Indication:Tobacco user Start:10-Oct-2021 Instruction Type:Patient Education Patient Instructions Indication:Tobacco user Start:26-Jul-2020 Instruction Type:Provider Instructions for Treatment How to Access Health Informa tion Online using Patient Portal and 3rd [employer] Apps Indication:Tobacco user Start:26-Jul-2020 Instruction Type:Patient Education How to access health informa tion online Indication:Tobacco user Start:17-Apr-2019 Instruction Type:Patient Education How to access health informa tion online - Detail Indication:Tobacco user Start:17-Apr-2019 Instruction Type:Patient Education Patient Instructions Indication:Tobacco user Start:17-Apr-2019 Instruction Type:Provider Instructions for Treatment How to access health informa tion online - Detail Indication:Anxiety Start:10-Feb-2019 Instruction Type:Patient Education Patient Instructions Indication:Anxiety Start:10-Feb-2019 Instruction Type:Provider Instructions for Treatment How to access health informa tion online Indication:Tobacco user Start:23-Feb-2018 Instruction Type:Patient Education How to access health informa tion online - Detail Indication:Tobacco user Start:23-Feb-2018 Instruction Type:Patient Education Patient Instructions Indication:Tobacco user Start:23-Feb-2018 Instruction Type:Provider Instructions for Treatment [facility]; [facility] Work Phone: Instructions* Name Dates Details Patient Instructions Indication:Insomnia, persistent Start:16-Dec-2022 Instruction Type:Provider Instructions for Treatment How to Access Health Informa tion Online using Patient Portal and [employer]rd [employer] Apps Indication:Insomnia, persistent Start:16-Dec-2022 Instruction Type:Patient Education How to Access Health Informa tion Online using Patient Portal and 3rd [employer] Apps Indication:Tobacco user Start:24-Jul-2022 Instruction Type:Patient Education Patient Instructions Indication:Tobacco user Start:24-Jul-2022 Instruction Type:Provider Instructions for Treatment Patient Instructions Indication:Tobacco user Start:20-Mar-2022 Instruction Type:Provider Instructions for Treatment How to Access Health Informa tion Online using Patient Portal and 3rd [employer] Apps Indication:Tobacco user Start:20-Mar-2022 Instruction Type:Patient Education Patient Instructions Indication:Tobacco user Start:13-Feb-2022 Instruction Type:Provider Instructions for Treatment How to Access Health Informa tion Online using Patient Portal and 3rd [employer] Apps Indication:Tobacco user Start:13-Feb-2022 Instruction Type:Patient Education Patient Instructions Indication:Tobacco user Start:10-Oct-2021 Instruction Type:Provider Instructions for Treatment How to Access Health Informa tion Online using Patient Portal and 3rd [employer] Apps Indication:Tobacco user Start:10-Oct-2021 Instruction Type:Patient Education Patient Instructions Indication:Tobacco user Start:26-Jul-2020 Instruction Type:Provider Instructions for Treatment How to Access Health Informa tion Online using Patient Portal and 3rd [employer] Apps Indication:Tobacco user Start:26-Jul-2020 Instruction Type:Patient Education How to access health informa tion online Indication:Tobacco user Start:17-Apr-2019 Instruction Type:Patient Education How to access health informa tion online - Detail Indication:Tobacco user Start:17-Apr-2019 Instruction Type:Patient Education Patient Instructions Indication:Tobacco user Start:17-Apr-2019 Instruction Type:Provider Instructions for Treatment How to access health informa tion online - Detail Indication:Anxiety Start:10-Feb-2019 Instruction Type:Patient Education Patient Instructions Indication:Anxiety Start:10-Feb-2019 Instruction Type:Provider Instructions for Treatment How to access health informa tion online Indication:Tobacco user Start:23-Feb-2018 Instruction Type:Patient Education How to access health informa tion online - Detail Indication:Tobacco user Start:23-Feb-2018 Instruction Type:Patient Education Patient Instructions Indication:Tobacco user Start:23-Feb-2018 Instruction Type:Provider Instructions for Treatment [facility]; [facility] Work Phone: Instructions* Name Dates Details Patient Instructions Indication:Insomnia, persistent Start:16-Dec-2022 Instruction Type:Provider Instructions for Treatment How to Access Health Informa tion Online using Patient Portal and [employer]rd [employer] Apps Indication:Insomnia, persistent Start:16-Dec-2022 Instruction Type:Patient Education How to Access Health Informa tion Online using Patient Portal and 3rd [employer] Apps Indication:Tobacco user Start:24-Jul-2022 Instruction Type:Patient Education Patient Instructions Indication:Tobacco user Start:24-Jul-2022 Instruction Type:Provider Instructions for Treatment Patient Instructions Indication:Tobacco user Start:20-Mar-2022 Instruction Type:Provider Instructions for Treatment How to Access Health Informa tion Online using Patient Portal and 3rd [employer] Apps Indication:Tobacco user Start:20-Mar-2022 Instruction Type:Patient Education Patient Instructions Indication:Tobacco user Start:13-Feb-2022 Instruction Type:Provider Instructions for Treatment How to Access Health Informa tion Online using Patient Portal and 3rd [employer] Apps Indication:Tobacco user Start:13-Feb-2022 Instruction Type:Patient Education Patient Instructions Indication:Tobacco user Start:10-Oct-2021 Instruction Type:Provider Instructions for Treatment How to Access Health Informa tion Online using Patient Portal and 3rd [employer] Apps Indication:Tobacco user Start:10-Oct-2021 Instruction Type:Patient Education Patient Instructions Indication:Tobacco user Start:26-Jul-2020 Instruction Type:Provider Instructions for Treatment How to Access Health Informa tion Online using Patient Portal and 3rd [employer] Apps Indication:Tobacco user Start:26-Jul-2020 Instruction Type:Patient Education How to access health informa tion online Indication:Tobacco user Start:17-Apr-2019 Instruction Type:Patient Education How to access health informa tion online - Detail Indication:Tobacco user Start:17-Apr-2019 Instruction Type:Patient Education Patient Instructions Indication:Tobacco user Start:17-Apr-2019 Instruction Type:Provider Instructions for Treatment How to access health informa tion online - Detail Indication:Anxiety Start:10-Feb-2019 Instruction Type:Patient Education Patient Instructions Indication:Anxiety Start:10-Feb-2019 Instruction Type:Provider Instructions for Treatment How to access health informa tion online Indication:Tobacco user Start:23-Feb-2018 Instruction Type:Patient Education How to access health informa tion online - Detail Indication:Tobacco user Start:23-Feb-2018 Instruction Type:Patient Education Patient Instructions Indication:Tobacco user Start:23-Feb-2018 Instruction Type:Provider Instructions for Treatment [facility]; [facility] Work Phone: Instructions* Name Dates Details Patient Instructions Indication:Insomnia, persistent Start:16-Dec-2022 Instruction Type:Provider Instructions for Treatment How to Access Health Informa tion Online using Patient Portal and [employer]rd [employer] Apps Indication:Insomnia, persistent Start:16-Dec-2022 Instruction Type:Patient Education How to Access Health Informa tion Online using Patient Portal and 3rd [employer] Apps Indication:Tobacco user Start:24-Jul-2022 Instruction Type:Patient Education Patient Instructions Indication:Tobacco user Start:24-Jul-2022 Instruction Type:Provider Instructions for Treatment Patient Instructions Indication:Tobacco user Start:20-Mar-2022 Instruction Type:Provider Instructions for Treatment How to Access Health Informa tion Online using Patient Portal and 3rd [employer] Apps Indication:Tobacco user Start:20-Mar-2022 Instruction Type:Patient Education Patient Instructions Indication:Tobacco user Start:13-Feb-2022 Instruction Type:Provider Instructions for Treatment How to Access Health Informa tion Online using Patient Portal and 3rd [employer] Apps Indication:Tobacco user Start:13-Feb-2022 Instruction Type:Patient Education Patient Instructions Indication:Tobacco user Start:10-Oct-2021 Instruction Type:Provider Instructions for Treatment How to Access Health Informa tion Online using Patient Portal and 3rd [employer] Apps Indication:Tobacco user Start:10-Oct-2021 Instruction Type:Patient Education Patient Instructions Indication:Tobacco user Start:26-Jul-2020 Instruction Type:Provider Instructions for Treatment How to Access Health Informa tion Online using Patient Portal and 3rd [employer] Apps Indication:Tobacco user Start:26-Jul-2020 Instruction Type:Patient Education How to access health informa tion online Indication:Tobacco user Start:17-Apr-2019 Instruction Type:Patient Education How to access health informa tion online - Detail Indication:Tobacco user Start:17-Apr-2019 Instruction Type:Patient Education Patient Instructions Indication:Tobacco user Start:17-Apr-2019 Instruction Type:Provider Instructions for Treatment How to access health informa tion online - Detail Indication:Anxiety Start:10-Feb-2019 Instruction Type:Patient Education Patient Instructions Indication:Anxiety Start:10-Feb-2019 Instruction Type:Provider Instructions for Treatment How to access health informa tion online Indication:Tobacco user Start:23-Feb-2018 Instruction Type:Patient Education How to access health informa tion online - Detail Indication:Tobacco user Start:23-Feb-2018 Instruction Type:Patient Education Patient Instructions Indication:Tobacco user Start:23-Feb-2018 Instruction Type:Provider Instructions for Treatment [facility]; [facility] Work Phone: progress note No data available for this section [facility] Family History Unknown Family Member Name Dates Details Father Comments:stomach cancer Status:Active Mother Comments:diabetes Status:Active Sister 1 Comments:pulmonary hypertens ion Status:Active Unknown Family Member Name Dates Details Father Comments:stomach cancer Status:Active Mother Comments:diabetes Status:Active Sister 1 Comments:pulmonary hypertens ion Status:Active Unknown Family Member Name Dates Details Father Comments:stomach cancer Status:Active Mother Comments:diabetes Status:Active Sister 1 Comments:pulmonary hypertens ion Status:Active Unknown Family Member Name Dates Details Father Comments:stomach cancer Status:Active Mother Comments:diabetes Status:Active Sister 1 Comments:pulmonary hypertens ion Status:Active Unknown Family Member Name Dates Details Father Comments:stomach cancer Status:Active Mother Comments:diabetes Status:Active Sister 1 Comments:pulmonary hypertens ion Status:Active Unknown Family Member Name Dates Details Father Comments:stomach cancer Status:Active Mother Comments:diabetes Status:Active Sister 1 Comments:pulmonary hypertens ion Status:Active Unknown Family Member Name Dates Details Father Comments:stomach cancer Status:Active Mother Comments:diabetes Status:Active Sister 1 Comments:pulmonary hypertens ion Status:Active Unknown Family Member Name Dates Details Father Comments:stomach cancer Status:Active Mother Comments:diabetes Status:Active Sister 1 Comments:pulmonary hypertens ion Status:Active Unknown Family Member Name Dates Details Father Comments:stomach cancer Status:Active Mother Comments:diabetes Status:Active Sister 1 Comments:pulmonary hypertens ion Status:Active Unknown Family Member Name Dates Details Father Comments:stomach cancer Status:Active Mother Comments:diabetes Status:Active Sister 1 Comments:pulmonary hypertens ion Status:Active Unknown Family Member Name Dates Details Father Comments:stomach cancer Status:Active Mother Comments:diabetes Status:Active Sister 1 Comments:pulmonary hypertens ion Status:Active Unknown Family Member Name Dates Details Father Comments:stomach cancer Status:Active Mother Comments:diabetes Status:Active Sister 1 Comments:pulmonary hypertens ion Status:Active Unknown Family Member Name Dates Details Father Comments:stomach cancer Status:Active Mother Comments:diabetes Status:Active Sister 1 Comments:pulmonary hypertens ion Status:Active Unknown Family Member Name Dates Details Father Comments:stomach cancer Status:Active Mother Comments:diabetes Status:Active Sister 1 Comments:pulmonary hypertens ion Status:Active Unknown Family Member Name Dates Details Father Comments:stomach cancer Status:Active Mother Comments:diabetes Status:Active Sister 1 Comments:pulmonary hypertens ion Status:Active Unknown Family Member Name Dates Details Father Comments:stomach cancer Status:Active Mother Comments:diabetes Status:Active Sister 1 Comments:pulmonary hypertens ion Status:Active Unknown Family Member Name Dates Details Father Comments:stomach cancer Status:Active Mother Comments:diabetes Status:Active Sister 1 Comments:pulmonary hypertens ion Status:Active Unknown Family Member Name Dates Details Father Comments:stomach cancer Status:Active Mother Comments:diabetes Status:Active Sister 1 Comments:pulmonary hypertens ion Status:Active Unknown Family Member Name Dates Details Father Comments:stomach cancer Status:Active Mother Comments:diabetes Status:Active Sister 1 Comments:pulmonary hypertens ion Status:Active Unknown Family Member Name Dates Details Father Comments:stomach cancer Status:Active Mother Comments:diabetes Status:Active Sister 1 Comments:pulmonary hypertens ion Status:Active Unknown Family Member Name Dates Details Father Comments:stomach cancer Status:Active Mother Comments:diabetes Status:Active Sister 1 Comments:pulmonary hypertens ion Status:Active Unknown Family Member Name Dates Details Father Comments:stomach cancer Status:Active Mother Comments:diabetes Status:Active Sister 1 Comments:pulmonary hypertens ion Status:Active Unknown Family Member Name Dates Details Father Comments:stomach cancer Status:Active Mother Comments:diabetes Status:Active Sister 1 Comments:pulmonary hypertens ion Status:Active Unknown Family Member Name Dates Details Father Comments:stomach cancer Status:Active Mother Comments:diabetes Status:Active Sister 1 Comments:pulmonary hypertens ion Status:Active Unknown Family Member Name Dates Details Father Comments:stomach cancer Status:Active Mother Comments:diabetes Status:Active Sister 1 Comments:pulmonary hypertens ion Status:Active Unknown Family Member Name Dates Details Father Comments:stomach cancer Status:Active Mother Comments:diabetes Status:Active Sister 1 Comments:pulmonary hypertens ion Status:Active Unknown Family Member Name Dates Details Father Comments:stomach cancer Status:Active Mother Comments:diabetes Status:Active Sister 1 Comments:pulmonary hypertens ion Status:Active Unknown Family Member Name Dates Details Father Comments:stomach cancer Status:Active Mother Comments:diabetes Status:Active Sister 1 Comments:pulmonary hypertens ion Status:Active Unknown Family Member Name Dates Details Father Comments:stomach cancer Status:Active Mother Comments:diabetes Status:Active Sister 1 Comments:pulmonary hypertens ion Status:Active Unknown Family Member Name Dates Details Father Comments:stomach cancer Status:Active Mother Comments:diabetes Status:Active Sister 1 Comments:pulmonary hypertens ion Status:Active Unknown Family Member Name Dates Details Father Comments:stomach cancer Status:Active Mother Comments:diabetes Status:Active Sister 1 Comments:pulmonary hypertens ion Status:Active Unknown Family Member Name Dates Details Father Comments:stomach cancer Status:Active Mother Comments:diabetes Status:Active Sister 1 Comments:pulmonary hypertens ion Status:Active Unknown Family Member Name Dates Details Father Comments:stomach cancer Status:Active Mother Comments:diabetes Status:Active Sister 1 Comments:pulmonary hypertens ion Status:Active Unknown Family Member Name Dates Details Father Comments:stomach cancer Status:Active Mother Comments:diabetes Status:Active Sister 1 Comments:pulmonary hypertens ion Status:Active Unknown Family Member Name Dates Details Father Comments:stomach cancer Status:Active Mother Comments:diabetes Status:Active Sister 1 Comments:pulmonary hypertens ion Status:Active Unknown Family Member Name Dates Details Father Comments:stomach cancer Status:Active Mother Comments:diabetes Status:Active Sister 1 Comments:pulmonary hypertens ion Status:Active Instructions Name Dates Details Tobacco user : How to access health information online Indication:Tobacco user Tobacco user : How to access health information online - Detail Indication:Tobacco user Tobacco user : Patient Instr uctions Indication:Tobacco user Name Dates Details How to access health informa tion online Indication:Tobacco user Start:23-Feb-2018 Instruction Type:Patient Education How to access health informa tion online - Detail Indication:Tobacco user Start:23-Feb-2018 Instruction Type:Patient Education Patient Instructions Indication:Tobacco user Start:23-Feb-2018 Instruction Type:Provider Instructions for Treatment Name Dates Details How to access health informa tion online Indication:Tobacco user Start:23-Feb-2018 Instruction Type:Patient Education How to access health informa tion online - Detail Indication:Tobacco user Start:23-Feb-2018 Instruction Type:Patient Education Patient Instructions Indication:Tobacco user Start:23-Feb-2018 Instruction Type:Provider Instructions for Treatment Name Dates Details How to access health informa tion online - Detail Indication:Anxiety Start:10-Feb-2019 Instruction Type:Patient Education Patient Instructions Indication:Anxiety Start:10-Feb-2019 Instruction Type:Provider Instructions for Treatment How to access health informa tion online Indication:Tobacco user Start:23-Feb-2018 Instruction Type:Patient Education How to access health informa tion online - Detail Indication:Tobacco user Start:23-Feb-2018 Instruction Type:Patient Education Patient Instructions Indication:Tobacco user Start:23-Feb-2018 Instruction Type:Provider Instructions for Treatment Name Dates Details How to access health informa tion online - Detail Indication:Anxiety Start:10-Feb-2019 Instruction Type:Patient Education Patient Instructions Indication:Anxiety Start:10-Feb-2019 Instruction Type:Provider Instructions for Treatment How to access health informa tion online Indication:Tobacco user Start:23-Feb-2018 Instruction Type:Patient Education How to access health informa tion online - Detail Indication:Tobacco user Start:23-Feb-2018 Instruction Type:Patient Education Patient Instructions Indication:Tobacco user Start:23-Feb-2018 Instruction Type:Provider Instructions for Treatment Name Dates Details How to access health informa tion online - Detail Indication:Anxiety Start:10-Feb-2019 Instruction Type:Patient Education Patient Instructions Indication:Anxiety Start:10-Feb-2019 Instruction Type:Provider Instructions for Treatment How to access health informa tion online Indication:Tobacco user Start:23-Feb-2018 Instruction Type:Patient Education How to access health informa tion online - Detail Indication:Tobacco user Start:23-Feb-2018 Instruction Type:Patient Education Patient Instructions Indication:Tobacco user Start:23-Feb-2018 Instruction Type:Provider Instructions for Treatment Name Dates Details How to access health informa tion online Indication:Tobacco user Start:17-Apr-2019 Instruction Type:Patient Education How to access health informa tion online - Detail Indication:Tobacco user Start:17-Apr-2019 Instruction Type:Patient Education Patient Instructions Indication:Tobacco user Start:17-Apr-2019 Instruction Type:Provider Instructions for Treatment How to access health informa tion online - Detail Indication:Anxiety Start:10-Feb-2019 Instruction Type:Patient Education Patient Instructions Indication:Anxiety Start:10-Feb-2019 Instruction Type:Provider Instructions for Treatment How to access health informa tion online Indication:Tobacco user Start:23-Feb-2018 Instruction Type:Patient Education How to access health informa tion online - Detail Indication:Tobacco user Start:23-Feb-2018 Instruction Type:Patient Education Patient Instructions Indication:Tobacco user Start:23-Feb-2018 Instruction Type:Provider Instructions for Treatment Name Dates Details How to access health informa tion online Indication:Tobacco user Start:17-Apr-2019 Instruction Type:Patient Education How to access health informa tion online - Detail Indication:Tobacco user Start:17-Apr-2019 Instruction Type:Patient Education Patient Instructions Indication:Tobacco user Start:17-Apr-2019 Instruction Type:Provider Instructions for Treatment How to access health informa tion online - Detail Indication:Anxiety Start:10-Feb-2019 Instruction Type:Patient Education Patient Instructions Indication:Anxiety Start:10-Feb-2019 Instruction Type:Provider Instructions for Treatment How to access health informa tion online Indication:Tobacco user Start:23-Feb-2018 Instruction Type:Patient Education How to access health informa tion online - Detail Indication:Tobacco user Start:23-Feb-2018 Instruction Type:Patient Education Patient Instructions Indication:Tobacco user Start:23-Feb-2018 Instruction Type:Provider Instructions for Treatment Name Dates Details How to access health informa tion online Indication:Tobacco user Start:17-Apr-2019 Instruction Type:Patient Education How to access health informa tion online - Detail Indication:Tobacco user Start:17-Apr-2019 Instruction Type:Patient Education Patient Instructions Indication:Tobacco user Start:17-Apr-2019 Instruction Type:Provider Instructions for Treatment How to access health informa tion online - Detail Indication:Anxiety Start:10-Feb-2019 Instruction Type:Patient Education Patient Instructions Indication:Anxiety Start:10-Feb-2019 Instruction Type:Provider Instructions for Treatment How to access health informa tion online Indication:Tobacco user Start:23-Feb-2018 Instruction Type:Patient Education How to access health informa tion online - Detail Indication:Tobacco user Start:23-Feb-2018 Instruction Type:Patient Education Patient Instructions Indication:Tobacco user Start:23-Feb-2018 Instruction Type:Provider Instructions for Treatment Name Dates Details How to access health informa tion online Indication:Tobacco user Start:17-Apr-2019 Instruction Type:Patient Education How to access health informa tion online - Detail Indication:Tobacco user Start:17-Apr-2019 Instruction Type:Patient Education Patient Instructions Indication:Tobacco user Start:17-Apr-2019 Instruction Type:Provider Instructions for Treatment How to access health informa tion online - Detail Indication:Anxiety Start:10-Feb-2019 Instruction Type:Patient Education Patient Instructions Indication:Anxiety Start:10-Feb-2019 Instruction Type:Provider Instructions for Treatment How to access health informa tion online Indication:Tobacco user Start:23-Feb-2018 Instruction Type:Patient Education How to access health informa tion online - Detail Indication:Tobacco user Start:23-Feb-2018 Instruction Type:Patient Education Patient Instructions Indication:Tobacco user Start:23-Feb-2018 Instruction Type:Provider Instructions for Treatment Name Dates Details How to access health informa tion online Indication:Tobacco user Start:17-Apr-2019 Instruction Type:Patient Education How to access health informa tion online - Detail Indication:Tobacco user Start:17-Apr-2019 Instruction Type:Patient Education Patient Instructions Indication:Tobacco user Start:17-Apr-2019 Instruction Type:Provider Instructions for Treatment How to access health informa tion online - Detail Indication:Anxiety Start:10-Feb-2019 Instruction Type:Patient Education Patient Instructions Indication:Anxiety Start:10-Feb-2019 Instruction Type:Provider Instructions for Treatment How to access health informa tion online Indication:Tobacco user Start:23-Feb-2018 Instruction Type:Patient Education How to access health informa tion online - Detail Indication:Tobacco user Start:23-Feb-2018 Instruction Type:Patient Education Patient Instructions Indication:Tobacco user Start:23-Feb-2018 Instruction Type:Provider Instructions for Treatment Name Dates Details How to access health informa tion online Indication:Tobacco user Start:17-Apr-2019 Instruction Type:Patient Education How to access health informa tion online - Detail Indication:Tobacco user Start:17-Apr-2019 Instruction Type:Patient Education Patient Instructions Indication:Tobacco user Start:17-Apr-2019 Instruction Type:Provider Instructions for Treatment How to access health informa tion online - Detail Indication:Anxiety Start:10-Feb-2019 Instruction Type:Patient Education Patient Instructions Indication:Anxiety Start:10-Feb-2019 Instruction Type:Provider Instructions for Treatment How to access health informa tion online Indication:Tobacco user Start:23-Feb-2018 Instruction Type:Patient Education How to access health informa tion online - Detail Indication:Tobacco user Start:23-Feb-2018 Instruction Type:Patient Education Patient Instructions Indication:Tobacco user Start:23-Feb-2018 Instruction Type:Provider Instructions for Treatment Name Dates Details Patient Instructions Indication:Tobacco user Start:26-Jul-2020 Instruction Type:Provider Instructions for Treatment How to Access Health Informa tion Online using Patient Portal and 3rd [employer] Apps Indication:Tobacco user Start:26-Jul-2020 Instruction Type:Patient Education How to access health informa tion online Indication:Tobacco user Start:17-Apr-2019 Instruction Type:Patient Education How to access health informa tion online - Detail Indication:Tobacco user Start:17-Apr-2019 Instruction Type:Patient Education Patient Instructions Indication:Tobacco user Start:17-Apr-2019 Instruction Type:Provider Instructions for Treatment How to access health informa tion online - Detail Indication:Anxiety Start:10-Feb-2019 Instruction Type:Patient Education Patient Instructions Indication:Anxiety Start:10-Feb-2019 Instruction Type:Provider Instructions for Treatment How to access health informa tion online Indication:Tobacco user Start:23-Feb-2018 Instruction Type:Patient Education How to access health informa tion online - Detail Indication:Tobacco user Start:23-Feb-2018 Instruction Type:Patient Education Patient Instructions Indication:Tobacco user Start:23-Feb-2018 Instruction Type:Provider Instructions for Treatment Name Dates Details Patient Instructions Indication:Tobacco user Start:26-Jul-2020 Instruction Type:Provider Instructions for Treatment How to Access Health Informa tion Online using Patient Portal and 3rd [employer] Apps Indication:Tobacco user Start:26-Jul-2020 Instruction Type:Patient Education How to access health informa tion online Indication:Tobacco user Start:17-Apr-2019 Instruction Type:Patient Education How to access health informa tion online - Detail Indication:Tobacco user Start:17-Apr-2019 Instruction Type:Patient Education Patient Instructions Indication:Tobacco user Start:17-Apr-2019 Instruction Type:Provider Instructions for Treatment How to access health informa tion online - Detail Indication:Anxiety Start:10-Feb-2019 Instruction Type:Patient Education Patient Instructions Indication:Anxiety Start:10-Feb-2019 Instruction Type:Provider Instructions for Treatment How to access health informa tion online Indication:Tobacco user Start:23-Feb-2018 Instruction Type:Patient Education How to access health informa tion online - Detail Indication:Tobacco user Start:23-Feb-2018 Instruction Type:Patient Education Patient Instructions Indication:Tobacco user Start:23-Feb-2018 Instruction Type:Provider Instructions for Treatment Name Dates Details How to access health informa tion online Indication:Tobacco user Start:17-Apr-2019 Instruction Type:Patient Education How to access health informa tion online - Detail Indication:Tobacco user Start:17-Apr-2019 Instruction Type:Patient Education Patient Instructions Indication:Tobacco user Start:17-Apr-2019 Instruction Type:Provider Instructions for Treatment How to access health informa tion online - Detail Indication:Anxiety Start:10-Feb-2019 Instruction Type:Patient Education Patient Instructions Indication:Anxiety Start:10-Feb-2019 Instruction Type:Provider Instructions for Treatment How to access health informa tion online Indication:Tobacco user Start:23-Feb-2018 Instruction Type:Patient Education How to access health informa tion online - Detail Indication:Tobacco user Start:23-Feb-2018 Instruction Type:Patient Education Patient Instructions Indication:Tobacco user Start:23-Feb-2018 Instruction Type:Provider Instructions for Treatment Summary Purpose Advance Directives No Advanced Directives Records FoundNo Advanced Directives Records FoundNo Advanced Directives Records Found Additional Source Comments Care Team (unrecognized sect ion and content) Care Team Personnel Name: PHYSICIAN, NOT RECORDED Member Role: Primary Care Physician Care Team Related Persons Name: NONE, Care Team Personnel Name: PHYSICIAN, NOT RECORDED Member Role: Primary Care Physician Name: OG JOHN DO Position: Resident Member Role: Resident Address: Address: [address] [place] [address] ED Resident [place], [address] Care Team Related Persons Name: NONE, Care Team Personnel Name: PHYSICIAN, NOT RECORDED Member Role: Primary Care Physician Care Team Related Persons Name: NONE, (unrecognized sect ion and content) No Status Records FoundNo Status Records FoundNo Status Records Found INFORMATION SOURCE (unrecogn ized section and content) DATE CREATED AUTHOR AUTHOR'S ORGANIZ ATION 01/10/2023 [facility] DATE CREATED AUTHOR AUTHOR'S ORGANIZ ATION 01/25/2023 [facility] ([place]) Patient Care team informatio n (unrecognized section and content) Care Team Personnel Name: GUNJAN PARISI APRN-CATTLE KNOCKER Member Role: Primary Care Physician Address: Address: [address] [place] [address] Name: JAVI DALLAS MD Position: ED Physician Address: Address: [address] [facility] [place], [place] [address] Name: JAVI VORA MD Position: Resident Member Role: Resident Address: Address: [address] [place] [address] Care Team Related Persons Name: NONE, FOR RECORDS PERTAINING TO PATIENTS WHO ARE OR HAVE BEEN ENROLLED IN A CHEMICAL DEPENDENCY/SUBSTANCEABUSE PROGRAM, SOME INFORMATION MAY BE OMITTED. This clinical summary was aggregated from multiple sources. Caution should be exercised in using it in the provision of clinical care. This summary normalizes information from multiple sources, and as a consequence, information in this document may materially change the coding, format and clinical context of patient data. In addition, data may be omitted in some cases. CLINICAL DECISIONS SHOULD BE BASED ON THE PRIMARY CLINICAL RECORDS. [facility] [employer] provides no warranty or guarantee of the accuracy or completeness of information in this document.
== END | disposition home or self-care (01) ==
LOC: CVS 07:34
PROVIDERS: PCP Nurse Practitioner Family; Referring Provider Nurse Practitioner Gerontology; Visit Provider Nurse Practitioner Gerontology
DX: R42 Dizziness and giddiness (principal); I25.10 Atherosclerotic heart disease of native coronary artery without angina pectoris; I10 Essential (primary) hypertension; E78.5 Hyperlipidemia, unspecified; F17.200 Nicotine dependence, unspecified, uncomplicated; Z95.5 Presence of coronary angioplasty implant and graft
CPT/HCPCS: 93880

== ENCOUNTER → 2024-01-07 | Outpatient (CLI) | payer MEDICARE, SELFPAY ==
--- NOTE | 2024-01-07 11:49 | STRESSREP_ITS ---
Stress Test Report Date: 01/07/2024 Procedure: Pharmacologic stress nuclear imaging study Indications: Chest pain, shortness of breath Consent: Per the patient Procedure: The patient underwent pharmacologic (Regadenoson) evaluation with a peak heart rate of 94 beats per minute (58%predicted maximal heart rate) and a peak blood pressure of 150/72 mmHg. The baseline ECG demonstrated normal sinus rhythm, nonspecific ST-T changes. EKG during lexiscan infusion revealed no significant ischemic changes. EKG post infusion revealed no significant ischemic changes [There were no cardiac dysrhythmias pretest, during pharmacologic infusion, or recovery]. [There was no complaint of chest discomfort during pharmacologic infusion or recovery]. The examination was discontinued secondary to completion of protocol. Impression: 1. Lexiscan stress test test is negative for Lexiscan infusion induced EKG changes of ischemia. 2. Lexiscan stress test test is negative for Lexiscan infusion induced chest pain. 3. Results of the nuclear portion of the test is as below Myocardial perfusion imaging study: Technique: The patient was injected with 15 millicuries of technetium 99m Cardiolite and subsequently rest SPECT Cardiolite nuclear imaging was obtained in the horizontal long, vertical long, and short axis views. The patient underwent pharmacologic [Regadenoson 0.4mg] evaluation. Please see above for details. The patient was injected with 44.6 millicuries of technetium 99m Cardiolite and subsequently stress SPECT Cardiolite nuclear imaging was obtained in the horizontal long, vertical long, and short axis views. A gated Cardiolite study at peak stress was obtained. Interpretation: Rest and stress SPECT Cardiolite nuclear imaging status post realignment, normalization, and attenuation correction demonstrate mildly decreased radioisotope uptake on the rest and stress images in the inferior wall that is slightly worse on the stress images in the inferior apical region. Mild ischemia involving the inferoapical wall cannot be excluded. Gated images reveal no significant regional wall motion abnormalities. The reported LVEF is 65%. Impression: 1. There is mild inferoapical ischemia. 2. Estimated ejection fraction is 65%. This note was generated with [employer] software. It may contain incorrect words, spelling, and punctuation that were not noted in checking the note before signing.
== END | disposition home or self-care (01) ==
PROVIDERS: PCP Nurse Practitioner Family; Referring Provider Physician Assistant Medical; Visit Provider Physician Assistant Medical
DX: I25.10 Atherosclerotic heart disease of native coronary artery without angina pectoris (principal); Z95.5 Presence of coronary angioplasty implant and graft; R06.09 Other forms of dyspnea; R07.9 Chest pain, unspecified
CPT/HCPCS: 78452; 93017; A9500; A4216; J2785

== ENCOUNTER 2024-02-02 12:00 | Observation (INO) | payer MEDICARE, SELFPAY ==
--- NOTE | 2024-01-14 09:54 | RAD_ITS ---
INDICATION: SOB EXAMINATION/TECHNIQUE: X-RAY - XR Chest 2 Views COMPARISON: Prior study dated: 12/16/2022 FINDINGS: LINES/DEVICES: None. LUNGS: No consolidation, edema or effusion. No pneumothorax. MEDIASTINUM AND CARDIOVASCULAR STRUCTURES: Cardiac silhouette not enlarged. Central airways and mediastinal contour are unremarkable. BONES AND SOFT TISSUES: Unremarkable. RAD/Chest PA and Lateral IMPRESSION: No radiographic evidence of acute cardiopulmonary disease. Electronically Signed: Dg Domingo MD at 10:21 EDT ,
[2024-01-14 10:42] LABS: Absolute Lymphocyte Count 1.39 X10^3/uL (0.83-4.51); Absolute Neutrophil Count 5.1 X10^3/uL (2.0-7.7); Basophil# 0.02 X10^3/uL; Basophil% 0.3 % (0-1); Eosinophil# 0.35 X10^3/uL; Eosinophils% 4.6 % (0-5); Hematocrit 42.6 % (40-54); Hemoglobin 14.2 g/dL (13.0-16.5); Lymphocyte # 1.39 X10^3/ul (0.83-4.51); Lymphocyte % 18.3 % (19-41); Mean Corp Hgb Conc 33.3 g/dL (32-36); Mean Corpuscular Hgb 30.8 pg (27.0-32.0); Mean Corpuscular Volume 92.4 fL (80-94); Mean Platelet Vol. 11.4 fl (6.2-12.0); Monocyte% 7.9 % (0-10); NRBC Flagged by Analyzer 0 % (0-5); Neutrophil # 5.12 X10^3/uL (2.7-7.7); Neutrophil % 67.6 % (47-70); Platelet Count 168 K/mm3 (150-450); RBC Distribution Width CV 12.2 % (11.6-14.6); RBC Distribution Width SD 41.1 fl (35.1-43.9); Red Blood Count 4.61 M/mm3 (4.6-6.2); White Blood Count 7.6 K/mm3 (4.4-11.0)
[2024-01-14 10:48] LABS: Prothrombin Time (Protime)PT. 13.3 SECONDS (11.7-14.9)
[2024-01-14 11:24] LABS: Anion Gap 7 (5-15); BUN 7 mg/dL (7-18); BUN/Creat Ratio 8.2 RATIO (10-20); Calcium,Total 9.1 mg/dL (8.5-10.1); Chloride 107 mmol/L (98-107); Creatinine, Serum 0.85 mg/dL (0.70-1.30); EST Glomerular Filtration Rate 98 mL/min (>60); Est Glom Filt Rate - Afr Amer 119 mL/min (>60); Glucose 147 mg/dL (74-106); Potassium 4.2 mmol/L (3.5-5.1); Sodium Level 139 mmol/L (136-145)
[2024-01-14 13:04] LABS: AST(SGOT) 26 U/L (15-37); Alanine Aminotransfer ALT/SGPT 46 U/L (16-61); Albumin, Serum 3.4 g/dL (3.2-5.0); Alkaline Phosphatase 49 U/L (45-117); Bilirubin, Direct 0.23 mg/dL (0.00-0.30); Cholesterol 118 mg/dL (200); Globulin 3.6 g/dL (2.2-4.2); High Density Lipoprotein 42 mg/dL; Triglycerides 70 mg/dL; Very Low Density Lipoprotein 14 mg/dL (5-40)
[2024-02-01 08:33] VITALS: BMI 41.5
[2024-02-02] VITALS (14 sets, daily range): BP systolic 106–131; BP diastolic 54–87; PULSE 60–74; RESP 18–22; TEMP 36.4–36.8; O2SAT 93–100
--- NOTE | 2024-02-02 12:05 | PCM.DC ---
Discharge Instructions Diet Discharge Diet: Low fat / Low cholesterol Activity Discharge Activity: Return to Normal Activity Dressing / Incision Call your doctor if your incision/area has: Continuous Slow Oozing, Sudden Increased Bleeding, Increased Pain/ Swelling, Increased Redness, Foul Smelling Discharge and Swelling at the incision site Call your doctor if you observe: Fever of 101 or Higher, Coldness, Increased Pain, Numbness or Tingling and Change in Color Follow Up Care Please Follow Up With: Conrad Feliz MD When: 2-4 weeks Test Results: Test results from this visit will be discussed in further detail at your follow-up appointment, if applicable. Discharge Plan Admission Attending Provider: Conrad Feliz Primary Care Provider: Sasha Jimenez Instructions Print Language: Gambian Discharge Orders/Prescriptions Prescriptions: No Action trazodone 50 mg tablet 150 mg PO QHS PRN (Reason: insomnia) Patient Comments: take 3 tablet by mouth at bedtime if needed for sleep / insomnia aspirin 81 mg tablet,delayed release (DR/EC) 81 mg PO DAILY losartan 50 mg tablet 50 mg PO DAILY metoprolol tartrate 100 mg tablet 100 mg PO BID Qty: 180 2RF sertraline 100 mg tablet 100 mg PO QDAY clopidogrel 75 mg Tablet 75 mg PO DAILY Qty: 60 6RF nitroglycerin 0.4 mg Tablet, Sublingual 0.4 mg sublingual Q5M PRN (Reason: Cardiac/Chest Pain) Qty: 15 3RF amlodipine 10 mg tablet 10 mg PO DAILY Qty: 90 3RF atorvastatin 10 mg tablet 10 mg PO QHS Qty: 60 3RF Referrals / Follow Up: Sasha Jimenez, WORKFORCE MANAGEMENT COORDINATOR-C [Primary Care Provider] - Disposition Disposition (needs filled in before D/C Order can be placed): Home, Self Care
--- NOTE | 2024-02-02 12:07 | PCM.DC ---
Discharge Instructions Diet Discharge Diet: Low fat / Low cholesterol Dressing / Incision Call your doctor if your incision/area has: Continuous Slow Oozing, Sudden Increased Bleeding, Increased Pain/ Swelling, Increased Redness, Foul Smelling Discharge and Swelling at the incision site Call your doctor if you observe: Fever of 101 or Higher, Coldness, Increased Pain, Numbness or Tingling and Change in Color Follow Up Care Please Follow Up With: Conrad Feliz MD Test Results: Test results from this visit will be discussed in further detail at your follow-up appointment, if applicable. Discharge Plan Admission Attending Provider: Conrad Feliz Primary Care Provider: Sasha Jimenez Instructions Print Language: Sami Discharge Orders/Prescriptions Prescriptions: No Action trazodone 50 mg tablet 150 mg PO QHS PRN (Reason: insomnia) Patient Comments: take 3 tablet by mouth at bedtime if needed for sleep / insomnia aspirin 81 mg tablet,delayed release (DR/EC) 81 mg PO DAILY losartan 50 mg tablet 50 mg PO DAILY metoprolol tartrate 100 mg tablet 100 mg PO BID Qty: 180 2RF sertraline 100 mg tablet 100 mg PO QDAY clopidogrel 75 mg Tablet 75 mg PO DAILY Qty: 60 6RF nitroglycerin 0.4 mg Tablet, Sublingual 0.4 mg sublingual Q5M PRN (Reason: Cardiac/Chest Pain) Qty: 15 3RF amlodipine 10 mg tablet 10 mg PO DAILY Qty: 90 3RF atorvastatin 10 mg tablet 10 mg PO QHS Qty: 60 3RF Referrals / Follow Up: Sasha Jimenez, SUPERVISOR [employer]SE-C [Primary Care Provider] - Disposition Disposition (needs filled in before D/C Order can be placed): Home, Self Care
--- NOTE | 2024-02-02 12:13 | HP.PCM_ITS ---
History and Physical Date of Admission: 02/02/24 This gentleman has had coronary angiography done. About 80% lesion was noted in the left circumflex which was treated with a drug-eluting stent. About 60% stenosis was noted in the LAD. An FFR was nonsignificant. Pt was in [facility] ER for CP in November of 2023. They wanted him to stay, he declined. I do not have these records available. He does admit to continuing to have CP. It is at rest. He tells me it lasts 5-15 minutes. This is not new. This is similar to what it was prior to his heart cath. He does have SOB with exertion. He does feel his heart skipping. This is off/on, this is 1-2 beats at a time. He does have swelling in his legs. It does go away in the AM, this does occur at time. He underwent a stress test which demonstrated mild inferior apical ischemia. He is here today to undergo a diagnostic heart catheterization. FORMERLY [facility], [facility] Medical History Dyspnea on exertion Nicotine dependence Obesity Coronary artery disease Vitamin D deficiency Appetite loss 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] Right hand pain SOB (shortness of breath) Fatigue Heartburn Syncope and collapse Pulmonary hypertension BMI 40.0-44.9, adult EtOH dependence Elevated liver function tests Anxiety Insomnia Tobacco dependence Sleep apnea Essential hypertension Chest pain Nocturnal hypoxemia COPD (chronic obstructive pulmonary disease) Surgical History Stented coronary artery Hx of cardiac catheterization (~04/08/23) Hx of plastic surgery Family History Mother Diabetes Heart disease Sister Pulmonary hypertension Father Cancer stomach Heart disease Social History Smoking Status: Current every day smoker tobacco type: cigarettes alcohol intake: current alcohol intake frequency: 3 or more drinks per day Alcohol type: beer details: 12 beer substance use type: does not use caffeine: No ROS Const Const: Negative for fatigue, weakness, fever(s) or headache(s) Eyes Eyes: Negative for blind spots, loss of peripheral vision or transient loss of vision ENT ENT: Negative for headache(s), dizziness, tinnitus, Nosebleed/epistaxis or balance problems Cardio Chest Pain: Yes Palpitations: Yes Edema: Bilateral Muscle aches with walking: None Resp Respiratory: Positive for SOB with activity; Negative for SOB at rest, SOB orthopnea\SOB lying down or Cough GI GI: Negative nausea, vomiting, heartburn or vomiting blood/hematemesis : Negative for hematuria Musc Musc: Negative for muscle aches/ myalgia, muscle weakness, joint pain or balance problems Neuro Neuro: Negative for dizziness, lightheadedness, near syncope, syncope, orthostatic symptoms, headache(s) or weakness Bj Hematologic/Lymphatic: Negative for easy bleeding Endo Endo: Negative for fatigue Cardiology Exam Const Appearance: comfortable and no acute distress Nutritional Appearance: obese Neck Neck: no JVD Carotids: Negative bruit Chest Auscultation: Bilateral: Clear to Auscultation Cardio Rate: regular rate Rhythm: regular rhythm Heart sounds: S1 normal and S2 normal GI GI: obese Neuro General: patient alert, patient awake and patient oriented x3 Extremities Lower Extremity Edema: None: Bilateral Supplemental Info Supplemental Information CT Cardiac Score 01/08/23: The score and distribution of calcium in the coronary arteries is as follows: LM: 0 LAD: 276.3 LCx: 0 RCA: 237.4 TOTAL: 513.7 The visualized segments of the lungs are normally expanded. Diffuse bronchial wall thickening. Mild patchy bibasilar infiltrates and/or atelectasis. The visualized mid/lower ascending thoracic aorta measures 3.7 cm in diameter. Visualized thoracic aorta is atherosclerotic. The heart is normal in size. No pericardial effusion is present. Some calcified subcarinal and hilar nodes bilaterally likely sequela of granulomatous disease. Mildly prominent nonspecific mediastinal nodes elsewhere for example up to 9mm short axis subcarinal region. Small hiatal hernia. Fatty liver. Echocardiogram 01/01/23: Interpretation Summary Mild concentric left ventricular hypertrophy. The left ventricular ejection fraction is 65 %. The left atrium is mildly enlarged. CARDIAC CATHETERIZATION 04/08/23: CONCLUSIONS 60% prox LAD (FFR 0.92) 80% Prox LCX 65% distal RCA Successful BRIDGETTE Prox LCX using Resolute [place] 3.0x18 mm RECOMMENDATIONS ASA Indefinitley Plavix for at least 12 months CORONARY ANGIOGRAPHY DOMINANCE: Right Dominant LEFT HEART ASSESSMENT LVEDP: 20 mmHg LEFT MAIN: Angiographically normal LEFT ANTERIOR DESCENDING ARTERY: LAD: Eccentric 60% Proximal lesion in LAD CIRCUMFLEX ARTERY: CIRCUMFLEX: Tubular 80% Proximal lesion in Circumflex RIGHT CORONARY ARTERY: RCA: Tubular 65% Distal lesion in RCA INTERVENTION INFORMATION LESION SITE: Circumflex (Proximal) Lesion Complexity: Non-High/Non-C, lesion length: 16 mm Pre Stenosis: 80 % Pre intervention KAT flow: 3 PROCEDURE: Drug Eluting Stent with post dilatation Post Stenosis: 0 % Post intervention KAT flow: 3 Lesion Devices: Cordis 6 Fr XB3.0 100cm Guide Catheter Terumo .014 180cm Runthrough Extra Floppy straight Medtronic Resolute Davi RX BRIGDETTE 3.0x18 Medtronic NC EUPHORA RX 3.0x12 BALLOON LESION SITE: LAD (Proximal) PROCEDURE: FFR Lesion Devices: [employer] (SkyPowero) Coronary FFR Wire Cardiac Catheterization 06/13/13: IMPRESSION 1. 20% to 30% mid and distal right coronary artery. 2. 20% distal left main. 3. 20% circumflex. 4. Normal left ventricular function. 5. Pulmonary hypertension; pulmonary artery pressure of 45. 6. Increased stroke volume resistance at 1300. Stress Test 03/05/23: IMPRESSION: 1. Pharmacologic (Regadenoson) evaluation 2. Peak pharmacologic ECG with no ischemic change. 3. There were no cardiac dysrhythmias pretest, during pharmacologic infusion, or recovery. 5. Rest and stress SPECT Cardiolite nuclear imaging demonstrate relative uniform tracer uptake and myocardial perfusion appearing within normal limits. 6. The gated Cardiolite study reports an LVEF of 69%. STRESS TEST 05/16/13: CONCLUSION Lexiscan stress test showing good physiologic response to Lexiscan. There were no untoward side effects. The patient had nonspecific ST changes in response to Lexiscan. There were no Lexiscan induced arrhythmias noted. Awaiting nuclear images. Conclusion: Spect Cardiolite stress test showing 1. Small inferior wall scar with no reversible ischemia noted. 2. Normal wall motion with calculated ejection fraction at 55%. Carotid Duplex 09/01/2023: Interpretation Summary Moderate (50-69%) stenosis right extracranial internal carotid. Mild (<50%) stenosis left extracranial internal carotid. The Right vertebral artery is not visualized The Left vertebral is patent and antegrade. Assessment & Plan Assessment/Plan (1) Abnormal stress test: (2) Coronary artery disease: PLAN: Plan Patient is agreeable to proceed with diagnostic heart catheterization. Follow- up will be based upon findings.
--- NOTE | 2024-02-02 12:15 | EKG12_ITS ---
Test Reason : PCI Blood Pressure : / mmHG Vent. Rate : 065 BPM Atrial Rate : 065 BPM P-R Int : 166 ms QRS Dur : 092 ms QT Int : 440 ms P-R-T Axes : 054 050 046 degrees QTc Int : 457 ms Normal sinus rhythm Normal ECG When compared with ECG of 09-APR-2023 05:43, MANUAL COMPARISON REQUIRED, DATA IS UNCONFIRMED Confirmed by NIKOLAI FRASER, JAG ([id number]), offline editor ARMANDO HUMPHREYS ([id number]) on 02/03/2024 2:33:21 PM Referred By: Conrad Feliz Confirmed By:JAG MENCHACA MD
[2024-02-02 12:18] LABS: ACT Activated Clotting Time 354 sec (74-137)
--- NOTE | 2024-02-02 12:36 | CL.I_ITS ---
Patient Name: RICHARD OLIVEROS Study Date: 02/02/2024 Performing: Conrad Feliz MD Ht: 71 inches 180.34 cm : 1965 Wt: 298 lbs 135.17 kg Age: 58 Gender: male BSA: 2.5 PROCEDURE(S) PERFORMED DC02-(46085)LHC/COR IC12-([id number])BRIDGETTE W/WO PTCA, SINGLE CORONARY ARTERY IC12-([id number]/[id number])BRIDGETTE W/WO PTCA, SINGLE CORONARY ARTERY CLINICAL PROFILE AND CO-MORBIDITIES Indications: New Onset Angina <= 2 months Heart Failure: None Stress/Imaging Stress/Image Study Performed: No Angina Classification Anginal Classification w/in 2 Weeks: CCS II CAD Presentations: Stable angina. CONCLUSIONS 70% Mid LAD 70% ISR Prox LCX, 70% Mid LCX 65% distal RPLV Successful BRIDGETTE Mid LAD using Fam Major 3.0x12 mm RECOMMENDATIONS ASA Indefinitley Plavix for at least 12 months DESCRIPTION OF PROCEDURE The patient arrived to the procedure lab. The risks and benefits of the procedure as well as a full description of our services here and lack of surgical backup were fully explained to the patient and/or their significant other prior to the catheterization. The Timeout was completed, verifying the correct patient and procedure. The patient's procedural site was prepped and draped in the usual fashion. Local anesthetic was given subcutaneously to right radial region with Lidocaine 2%. Using a modified Seldinger technique, arterial access was obtained via the right radial artery, a 6Fr sheath was inserted.. Right Coronary Artery selective angiography was then performed in multiple views using a 5 Fr. 4.0 [place] catheter. Left Coronary Artery selective angiography was performed in multiple views using a 5 Fr. 4.0 [place] catheterThe images were reviewed and options discussed. A decision was then made to proceed with an Intervention, IVUS or other adjunct procedure. XB3 Guide catheter was inserted and engaged into the LCA. RUNTHROUGH Guide wire was advanced to the Circumflex. 2.5X30 FAM FRONTIER Drug Eluting stent was inserted. Drug Eluting stent was advanced across the lesion in the circumflex, mid. Angiogram performed pre stent deployment. Angiogram performed post stent deployment. 3.0X26 FAM FRONTIER Drug Eluting stent was inserted. Drug Eluting stent was advanced across the lesion in the circumflex, mid. Angiogram performed post stent deployment. Angiogram performed post stent deployment. 2.5X20 [place]ER[place] Balloon catheter was inserted. Balloon catheter was inserted post stent. PTCA balloon inflated at 14 atms for 11 secs. PTCA balloon inflated at 14 atms for 10 secs. Angiogram performed post balloon dilatation. 3.0X20 NC [place] Balloon catheter was inserted. Balloon catheter was inserted post stent. Angiogram performed pre balloon dilatation. PTCA balloon inflated at 14 atms for 13 secs. Angiogram performed post balloon dilatation. RUNTHROUGH Guide wire was advanced to the LAD. 3.0X12 FAM FRONTIER Drug Eluting stent was inserted. Drug Eluting stent was advanced across the lesion in the LAD, mid. Angiogram performed pre stent deployment. Angiogram performed post stent deployment. Angiogram performed pre balloon dilatation. 3.0X12 NC EUPHORA Balloon catheter was inserted POST STENT. Angiogram performed post balloon dilatation. Angiogram performed post balloon dilatation. Angiogram performed post balloon dilatation. The arterial sheath was pulled and a TR Band was applied for hemostasis CORONARY ANGIOGRAPHY LEFT HEART ASSESSMENT Left Ventricular Ejection Fraction: Not assessed LEFT MAIN: No significant disease noted CIRCUMFLEX ARTERY: CIRCUMFLEX: Tubular 70% Mid lesion in Circumflex In-Stent Restenosis 70% Proximal lesion in Circumflex, STENT to 70% RIGHT CORONARY ARTERY: RCA: Tubular 50% Mid lesion in RCA INTERVENTION INFORMATION LESION SITE: Circumflex (Mid) Lesion Complexity: High/C, lesion length: 54 mm, In-stent restenosis: Yes Pre Stenosis: 70 % Pre intervention KAT flow: 3 PROCEDURE: Drug Eluting Stent with post dilatation Post Stenosis: 0 % Post intervention KAT flow: 3 Lesion Devices: Cordis 6 Fr XB3.0 100cm Guide Catheter Terumo .014 180cm Runthrough Extra Floppy straight Medtronic 2.50 x 30 FAM FRONTIER BRIDGETTE Medtronic 3.0 x 26 FAM FRONTIER BRIDGETTE [employer] [place] MR 2.50x20 BALLOON [employer] [place] MR 3.00x20 BALLOON LESION SITE: LAD (Mid) Lesion Complexity: Non-High/Non-C Pre Stenosis: 70 % Pre intervention KAT flow: 3 PROCEDURE: Drug Eluting Stent with post dilatation Post Stenosis: 0 % Post intervention KAT flow: 3 Lesion Devices: Cordis 6 Fr XB3.0 100cm Guide Catheter Terumo .014 180cm Runthrough Extra Floppy straight Medtronic 3.0 x 12 FAM FRONTIER BRIDGETTE Medtronic NC EUPHORA RX 3.0x12 BALLOON COMPLICATIONS No Complications PROCEDURE MEDICATIONS Fentanyl 50 mcg IV Versed 1 mg IV Fentanyl 50 mcg IV Fentanyl 50 mcg IV Oxygen: 2 L/min via nasal cannula Heparin given IA 02/02/2024 11:00:40 Heparin 39234 unit(s) IV 02/02/2024 11:10:21 Nitro 200 mcg IC 02/02/2024 11:27:53 Plavix 300 mg PO 02/02/2024 12:08:02 Verapamil 2.5mg, Ntg 200mcgs, 2000 units of Heparin given IA 02/02/2024 11:00:40 IV Bolus: .9 NaCl 250 ml total 02/02/2024 11:19:44 SUMMARY OF HEMODYNAMIC DATA Time AIR REST ECG 08:48:04 AO 112/67 (83) SA 11:02:50 Signed By Conrad Feliz MD On 02/02/2024 12:35:31 Conrad Feliz MD
[2024-02-02] MEDS: 0.9% Normal Saline (1000mL) 1,000 ML 150 ML IV (13:31)
--- NOTE | 2024-02-02 13:45 | PN.HOSP_ITS ---
Reason for Visit Reason for Visit: Diagnoses Pure hypercholesterolemia, unspecified (02/02/24) Hyperlipidemia, unspecified (02/02/24) Atherosclerotic heart disease of [place] coronary artery without angina pectoris (02/02/24) Chest pain, unspecified (02/02/24) Abnormal result of other cardiovascular function study (02/02/24) Presence of coronary angioplasty implant and graft (02/02/24) Subjective Subjective Patient with history of chest pain, dyspnea with abnormal stress testing, presenting for intervention per Dr. Feliz with successful BRIDGETTE mid LAD performed with noted 70% mid LAD stenosis, 70% ISR proximal LCx, 70% mid LCx, 65% distal RPLV with recommendations for aspirin indefinitely and Plavix for at least 12 months. Patient currently denies any chest pain, dizziness, lightheadedness, nausea, emesis. He notes feeling well. He denies any wrist discomfort with compression still in place to the right wrist. Objective Data Objective Data Vital Signs: Vital Signs Temp Pulse Resp BP Pulse Ox O2 Del Method 97.6 F L 61 20 H 131/62 H 97 Room Air 02/02/24 13:25 02/02/24 13:25 02/02/24 13:25 02/02/24 13:25 02/02/24 13:25 02/02/24 13:25 Oxygen Delivery Method Room Air Weight: 298 lb Body Mass Index (BMI) 41.5 Lab / Micro Data 01/14/24 09:33 01/14/24 09:33 Labs: Laboratory Results - last 24 hr 02/02/24 11:20: Activated Clotting Time 354 H Physical Exam Narrative Physical Examination: General: Awake, alert, oriented x 3 and cooperative, seated upright in the PCU bed in no apparent distress, denies any chest pain or dyspnea. Skin: Normal color, normal turgor, no icterus, no cyanosis except occasional staged ecchymoses, bilateral lower extremities venous stasis disease, recent cardiac catheterization with right wrist compression in place HEENT: AT/NC, EOMI, PERRLA, MMM. Lungs: Mildly diminished, distant, appropriate effort, no rales, ronchi or wheezing. Heart: Regular rate and rhythm; no gallop, rub audible. Abdomen: Soft, morbidly obese, NTTP, hyperactive bowel sounds, difficult to discern distention and HSM given habitus. Extremities: No cyanosis, no clubbing, no marked peripheral edema, right wrist with compression of play status post recent cardiac catheterization. Neurological: Patient awake, alert, oriented as noted, cognitive function intact; pupils equally reactive to light and accommodation, cranial nerves grossly normal, moving all 4 extremities, no focal deficits, strength appropriate although reduced activity given recent cardiac catheterization with right wrist compression still in place. Psychiatric: Affect appears talkative, normal, no acute evidence of depressive or anxiety feelings But does have underlying history. Assessment & Plan Assessment/Plan (1) Coronary artery disease: PLAN: Plan The patient is a 58 y/o M w/ PMHx: Morbid obesity, Tobacco use, Anxiety and Depression/claustrophobia, DENTON non-tolerant of PAP therapy, HTN, HLD, CAD, COPD, EtOH abuse who presents to the [facility] on 02/02/2024 secondary to history of recent 01/07/2024 stress test with noted induced EKG changes of ischemia and chest discomfort which was performed secondary to chest pain and dyspnea episodes presenting for cardiac catheterization with noted 80% lesion left circumflex, 60% stenosis LAD on previous coronary angiography but declined any intervention at that time 11/2023 presenting for intervention per Dr. Feliz with successful BRIDGETTE mid LAD performed with noted 70% mid LAD stenosis, 70% ISR proximal LCx, 70% mid LCx, 65% distal RPLV with recommendations for aspirin indefinitely and Plavix for at least 12 months. #1. CAD with recent PCI intervention: Patient presenting for cardiac catheterization and intervention, 02/02/[address] Feliz with successful BRIDGETTE mid LAD performed with noted 70% mid LAD stenosis, 70% ISR proximal LCx, 70% mid LCx, 65% distal RPLV with recommendations for aspirin indefinitely and Plavix for at least 12 months, maintained on aspirin, Plavix, statin, metoprolol, losartan home regimen. #2. Chronic COPD: Per current list patient is not on any chronic inhaler regimen, if necessary may add ATC budesonide otherwise at this time will maintain on PRN albuterol, HOB, IS parameters. #3. EtOH Abuse: Patient notes routine consumption of now down to 10 beers per day. Will maintain on CIWA protocol, MVI, thiamine and folic acid. Magnesium and phosphorus levels requested. Case management consulted. Encouraged sobriety. #4. Hypertension: Continue home regimen including amlodipine, losartan, metoprolol, PRN hydralazine. #5. Hyperlipidemia: We will continue patient on statin therapy. #6. Anxiety and depression/claustrophobia: We will continue patient home Zoloft and sertraline regimen. #7. Morbid Obesity: Weight loss and lifestyle changes encouraged. #8. Tobacco Abuse: Encouraged cessation, inpatient consultation per RT, NR if desired. #9. DENTON: CPAP intolerant secondary to anxiety/claustrophobia. #10. DVT prophylaxis: Recommend consideration of SCDs given recent intervention, chemoprophylaxis per cardiology discretion given recent catheterization. Charges/Coding Visit Charges Inpatient E&M: 64116 Subs Hosp L3
--- NOTE | 2024-02-02 13:45 | CRPHASE1 ---
Patient Communication Patient Information PHII Cardiac Rehab Discussed with Patient:: Yes Guide to Cardiac Rehab Given to Patient:: Yes Cardiac Rehab Facility Choice List Given to Patient:: Yes Communication to Cardiac Rehab Choice Program [facility] CR PHII:: Communication Given to CR and Refer to [facility] Choice Program Other:: Communication Given to CR Bottle Tester:: Conrad Feliz PCP:: Sasha Jimenez Refer Phase II Cardiac Rehab:: Yes Post Discharge Choice Letter Given to Patient:: Yes Phase I Charge:: Level I - Education Medical/Surgical History Medical History Angina:: Yes CAD:: Yes Congestive Heart Failure: DENT[place]:: Yes Hypertension:: Yes Dyslipidemia:: Yes CVA/TIA: Surgical History PTCA:: Yes Ambulation Ambulation Notes:: walks independently Cardiac Rehabilitation Info Program Information Cardiac Rehabilitation Program Information: Cardiac Rehab The cardiac rehab team at [facility] consists of highly skilled exercise physiologists, nurses, respiratory therapists and physicians working together with you. Our purpose is to help you have a full recovery and achieve the goals you set for yourself. Over the years many of our patients have returned to activities they assumed they would never do again! We can help restore your confidence and motivation to make lifestyle changes that can have a significant impact on your health and quality of life! We can help answer questions and concerns you may have about exercise, lifestyle, medications, diet, stress and anxiety which are common following a hospitalization. WE monitor ECG and vital signs during exercise and discuss your progress with you and report to your physician(s). Cardiac Rehab is proven to help reduce readmissions, improve functional capacity and lower recurrence of problems with your heart. Our Cardiac Rehab program is Certified by the [place] Association of Cardio-Vascular and Pulmonary Rehabilitation (AACVPR) and Accredited by the [place] [employer] of [employer] through our [facility]. You can contact us at . We invite you to call us with your questions or to get started in our program. If you have other questions or concerns be sure to ask your physician/provider during your follow-up visit. WE look forward to seeing you!
--- NOTE | 2024-02-02 13:47 | CRPH1.INST_ITS ---
General Education Discussed with Patient CAD and cardiac anatomy and function:: Patient communicates acknowledgment, Family communicates acknowledgment, Patient returns demonstration and Family returns demonstration Explanation of diagnoses and procedures:: Patient communicates acknowledgment, Family communicates acknowledgment, Patient returns demonstration and Family returns demonstration Sign/Symptoms of AR:: Patient communicates acknowledgment, Family communicates acknowledgment, Patient returns demonstration and Family returns demonstration Antiplatelet therapy: Patient communicates acknowledgment, Family communicates acknowledgment, Patient returns demonstration and Family returns demonstration Proper use of NTG-SL: Patient communicates acknowledgment, Family communicates acknowledgment and Patient returns demonstration Emergency procedures and activation of EMS: Patient communicates acknowledgment, Family communicates acknowledgment and Patient returns demonstration Compliance of all prescribed medications: Patient communicates acknowledgment, Family communicates acknowledgment, Patient returns demonstration and Family returns demonstration Smoking Risk Factors Patient Nicotine/Smoking Risk Factors Are:: Cigarettes Recommendations Recommendations Include:: Smoking cessation strategies/Smoking packet, Second- hand smoke recommendation and Participation in a smoking cessation program Response Code Nicotine/Smoking Response Code:: Patient communicates acknowledgment, Family communicates acknowledgment, Patient returns demonstration, Family returns demonstration and Needs reinforcement Dyslipidemia Risk Factors Patient Dyslipidemia Risk Factors Are:: Total Cholesterol, Triglycerides and HDL Recommendations Recommendations Include:: Lipid profile provided Response Code Dyslipidemia Response Code:: Patient communicates acknowledgment, Family communicates acknowledgment, Patient returns demonstration and Family returns demonstration Overweight/Obesity Risk Factors Patient Overweight/Obesity Risk Factors Are:: Obesity - > or = 30 Recommendations Recommendations Include:: Weight loss of 5-10%, Reduced calorie diet and Exercise 5-7 times/week Response Code Overweight/Obesity:: Patient communicates acknowledgment, Family communicates acknowledgment, Patient returns demonstration and Family returns demonstration Hypertension Recommendations Recommendations Include:: DASH dietary guidelines, Decrease/maintain normal body weight and Moderation of ETOH Response Code Hypertension:: Patient communicates acknowledgment, Family communicates acknowledgment, Patient returns demonstration and Family returns demonstration Heart Disease Risk Factors Patient Heart Disease Risk Factors Are:: Family history of heart disease < 65 years old and Previous cardiac event Recommendations Recommendations Include:: Educated family members of their risk and Educated family members of importance of prevention of heart disease Response Code Heart Disease Response Code:: Patient communicates acknowledgment, Family communicates acknowledgment, Patient returns demonstration and Family returns demonstration Diabetes Recommendations Recommendations Include:: Diabetic dietary guidelines and Decrease/maintain body weight Response Code Diabetes:: Patient communicates acknowledgment, Family communicates acknowledgment, Patient returns demonstration and Family returns demonstration Metabolic Syndrome Risk Factors Patient Metabolic Syndrome Risk Factors Are [3 of 5]:: Waist circumference > 35 [female] or 40 [male] and Hypertension Recommendations Recommendations Include:: Reinforce compliance to risk factor modifications and Encouraged follow-up with Primary Care Physician Response Code Metabolic Syndrome Response Code:: Patient communicates acknowledgment, Family communicates acknowledgment, Patient returns demonstration and Family returns demonstration Sedentary Risk Factors Patient Sedentary Risk Factors Are:: Lack of regular exercise Recommendations Recommendations Include:: Aerobic exercise 5-7 times/week for 20-30 minutes continuously, Benefits of regular exercise, Discussed home walking program and Monitored Outpatient Cardiac Rehab Response Code Sedentary Response Code:: Patient communicates acknowledgment, Family communicates acknowledgment, Patient returns demonstration and Family returns demonstration Stress Risk Factors Patient Stress Risk Factors Are:: Patient denies stress as a risk factor
[2024-02-02 14:39] LABS: Phosphorus 3.2 mg/dL (2.5-4.9)
[2024-02-02] MEDS: Metoprolol Tartrate 100 MG Tablet PO (21:05)
[2024-02-02] MEDS: Atorvastatin Calcium 10 MG Tablet PO (21:05)
[2024-02-02] MEDS: traZODone 50 MG Tablet 150 MG PO (21:13)
[2024-02-03 03:00] VITALS: BP 119/62; PULSE 61; RESP 18; TEMP 36.8; O2SAT 98
[2024-02-03 06:38] LABS: Hemoglobin 13.4 g/dL (13.0-16.5); Mean Corp Hgb Conc 33.5 g/dL (32-36); Mean Corpuscular Hgb 31.2 pg (27.0-32.0); Mean Platelet Vol. 10.8 fl (6.2-12.0); Platelet Count 122 K/mm3 (150-450); RBC Distribution Width CV 12.4 % (11.6-14.6); RBC Distribution Width SD 42.6 fl (35.1-43.9); White Blood Count 5.9 K/mm3 (4.4-11.0)
[2024-02-03 07:09] LABS: ALB/GLOB Ratio 0.9 RATIO (0.9-2.4); AST(SGOT) 25 U/L (15-37); Alanine Aminotransfer ALT/SGPT 42 U/L (16-61); Alkaline Phosphatase 44 U/L (45-117); Anion Gap 4 (5-15); BUN 11 mg/dL (7-18); BUN/Creat Ratio 13.9 RATIO (10-20); Calcium,Total 8.5 mg/dL (8.5-10.1); Chloride 109 mmol/L (98-107); Creatinine, Serum 0.79 mg/dL (0.70-1.30); EST Glomerular Filtration Rate 106 mL/min (>60); Est Glom Filt Rate - Afr Amer 129 mL/min (>60); Estimated Creatinine Clearance 145.07 ml/min; Globulin 3.4 g/dL (2.2-4.2); Glucose 137 mg/dL (74-106); Potassium 4.5 mmol/L (3.5-5.1); Protein, Total 6.4 g/dL (6.4-8.2); Sodium Level 139 mmol/L (136-145)
[2024-02-03 08:24] VITALS: O2SAT 96
[2024-02-03 09:24] VITALS: BP 136/72; PULSE 68; RESP 18; TEMP 36.6; O2SAT 96
[2024-02-03 09:27] VITALS: PULSE 68
[2024-02-03] MEDS: Folic Acid 1 MG Tablet PO (09:27)
[2024-02-03] MEDS: Losartan Potassium 50 MG Tablet PO (09:27)
[2024-02-03] MEDS: Aspirin E.C. 81 MG Tablet PO (09:27)
[2024-02-03] MEDS: Thiamine Hydrochloride 100 MG Tablet PO (09:27)
[2024-02-03] MEDS: Sertraline 100 MG Tablet PO (09:27)
[2024-02-03] MEDS: amLODIPine 10 MG Tablet PO (09:27)
[2024-02-03] MEDS: Metoprolol Tartrate 100 MG Tablet PO (09:27)
[2024-02-03] MEDS: Clopidogrel Bisulfate 75 MG Tablet PO (09:27)
[2024-02-03] MEDS: Multivitamins,Ther W-Minerals Tablet 1 TABLET PO (09:27)
--- NOTE | 2024-02-03 09:46 | CASEMGMT ---
JERROD to meet with patient as he drinks 10 beers a day. SW met with patient and his was present. Patient was okay talking in front of his . Patient declined resources for alcohol. Patient stated he is already cutting back. Patient's confirmed he has not been buying as much and he does not argue with her when she does not want him to buy alcohol. Patient thanked JERROD for checking. [place] ASW/AS[facility] [employer] ZORA
--- NOTE | 2024-02-03 10:54 | PN_ITS ---
Subjective Subjective Patient seen and examined. He had no complaints and had an uneventful night. Review of systems is otherwise negative. He had cardiac cath yesterday with insertion of stents. He has remained hemodynamically stable. Objective Data Objective Data Vital Signs: Vital Signs Temp Pulse Resp BP Pulse Ox O2 Del Method 97.8 F 68 18 136/72 H 96 Room Air 02/03/24 09:24 02/03/24 09:27 02/03/24 09:24 02/03/24 09:24 02/03/24 09:24 02/03/24 09:24 Oxygen Delivery Method Room Air Weight: 298 lb Body Mass Index (BMI) 41.5 Intake & Output: Intake and Output for Last 24 Hours 02/01/24 02/02/24 02/03/24 23:59 23:59 23:59 Intake Total 1000 / 1000 Balance 1000 / 1000 Lab / Micro Data 02/03/24 06:12 02/03/24 06:12 Labs: Laboratory Results - last 24 hr 02/02/24 11:20: Activated Clotting Time 354 H 02/02/24 14:12: Phosphorus 3.2, Magnesium 2.0 02/03/24 06:12: WBC 5.9, RBC 4.30 L, Hgb 13.4, Hct 40.0, MCV 93.0, MCH 31.2, MCHC 33.5, RDW Std Deviation 42.6, RDW Coeff of Megan 12.4, Plt Count 122 L, MPV 10.8, Sodium 139, Potassium 4.5, Chloride 109 H, Carbon Dioxide 26.0, Anion Gap 4 L, BUN 11, Creatinine 0.79, Estim Creat Clear Calc 145.07, Est GFR (MDRD) Af Amer 129, Est GFR (MDRD) Non-Af 106, BUN/Creatinine Ratio 13.9, Glucose 137 H, Calcium 8.5, Total Bilirubin 0.70, AST 25, ALT 42, Alkaline Phosphatase 44 L, Total Protein 6.4, Albumin 3.0 L, Globulin 3.4, Albumin/Globulin Ratio 0.9 Physical Exam Const alert, oriented x3, no apparent distress and well nourished General Appearance: cooperative and well developed HEENT normocephalic, head/scalp atraumatic, moist oral mucous membranes and oropharynx normal Eyes PERRL and EOMs intact bilaterally Neck no lymphadenopathy, supple and no JVD Lymph Lymphatic: no lymphadenopathy noted and no lymphedema noted Resp normal respiratory effort, normal air movement and clear to auscultation bilaterally Cardio regular rate, regular rhythm, S1 normal heart sound, S2 normal heart sound and no murmurs GI normal to inspection, nondistended, normoactive bowel sounds, soft to palpation, non-tender and non-distended Extremity normal capillary refill, no clubbing, cyanosis or edema and no calf tenderness General Extremity: no tenderness to palpation of joints or extremities Skin General Skin Exam: no breakdown Neuro CN's II-XII intact bilaterally, no focal motor deficits, no sensory deficits noted and deep tendon reflexes 2+ bilaterally Motor Exam: strength 5/5 throughout and general weakness Psych thought process normal, cooperative and affect normal Appearance: appropriate Assessment & Plan Assessment/Plan (1) Abnormal stress test: (2) Coronary artery disease: PLAN: Plan #CAD s/p stents * Was admitted to the service of cardiology on account of an abnormal outpatient stress test. * He had cardiac cath yesterday which showed 70% mid LAD stenosis, 70% proximal left circumflex artery in-stent restenosis and 70% stenosis of the mid left circumflex artery. * He had successful mid LAD drug-eluting stent insertion. * To be on aspirin indefinitely and Plavix for at least 12 months. * On high intensity statin. Patient counseled to abstain from fast food as he was seen to have [employer] fries in his room which he said he ate yesterday because he felt very hungry. * Also counseled to quit smoking. * #COPD: Not in exacerbation. He still smokes about half a pack daily. Breathing treatments bronchodilators. #Hypertension: Amlodipine and losartan as well as metoprolol. #Hyperlipidemia: On high intensity statin #Anxiety and depression: On Zoloft and sertraline #History of chronic alcohol abuse: States he now drinks about 10 beers a day and is trying to cut down. 19 withdrawal. On thiamine and folic acid as well as multivitamins and on CIWA protocol. DVT prophylaxis: as per primary team cardiology. SCDs Charges/Coding Visit Charges Inpatient E&M: 14029 Subs Hosp L2
--- NOTE | 2024-02-03 11:09 | CASEMGMT ---
TORRES ROSS NOTE: Pt being discharged. Pt discharging home on ASA and Plavix, which he had been taking prior to coming into the hospital. TORRES ROSS to room. Introduced self and role. Pt resting in bed. @ bedside. Pt and deny having any home-going needs/concerns. Pt states he is ready to go home. Eli JULIAN RN, CM
[2024-02-03 11:17] VITALS: BP 142/77; PULSE 60; RESP 18; TEMP 36.6; O2SAT 96
[2024-02-03 12:02] LABS: Hemoglobin A1c 5.4 % (3.8-5.6)
[2024-02-07 07:55] LABS: ACT Activated Clotting Time 269 sec (74-137)
== END 2024-02-03 11:21 | disposition home or self-care (01) ==
LOC: CLSP 12:06 → PCU 12:47
PROVIDERS: Family Medicine; Nurse Practitioner Gerontology; Physician Assistant Medical; Student in an Organized Health Care Education/Training Program; Admitting Provider Internal Medicine Cardiovascular Disease; PCP Nurse Practitioner Family; Referring Provider Internal Medicine Cardiovascular Disease; Visit Provider Internal Medicine Cardiovascular Disease
DX: I25.118 Atherosclerotic heart disease of native coronary artery with other forms of angina pectoris (principal); I27.20 Pulmonary hypertension, unspecified; J44.9 Chronic obstructive pulmonary disease, unspecified; F10.20 Alcohol dependence, uncomplicated; Z68.41 Body mass index [BMI] 40.0-44.9, adult; E66.01 Morbid (severe) obesity due to excess calories; R94.39 Abnormal result of other cardiovascular function study; I10 Essential (primary) hypertension; Z95.5 Presence of coronary angioplasty implant and graft; F17.210 Nicotine dependence, cigarettes, uncomplicated; E78.00 Pure hypercholesterolemia, unspecified; G47.33 Obstructive sleep apnea (adult) (pediatric); F41.9 Anxiety disorder, unspecified; F32.A Depression, unspecified; F40.240 Claustrophobia; R06.02 Shortness of breath
CPT/HCPCS: 36415; 71046; 80048; 80053; 80061; 80076; 83036; 83735; 84100; 85025; 85027; 85347; 85610; 85730; 92928; 93005; 93454; 96360; 96361; 99152; 99153; 99221; J7030; Q9967; C1725; C1769; C1874; C1887; C1894; C9600; G0378

== ENCOUNTER 2024-08-09 17:20 | Emergency (ER) | payer MEDICARE, SELFPAY ==
[2024-08-09 17:20] VITALS: BP 131/59; PULSE 84; RESP 12; TEMP 36.4; O2SAT 98; BMI 42.3
--- NOTE | 2024-08-09 17:59 | ED.RN ---
PT. LEFT BEFORE SEEING A PROVIDER AT 1750.
== END 2024-08-09 17:50 | disposition left against medical advice (07) ==
LOC: ED 18:05
PROVIDERS: PCP Nurse Practitioner Family
DX: Z53.21 Procedure and treatment not carried out due to patient leaving prior to being seen by health care provider (principal)

== ENCOUNTER 2025-03-21 16:04 | Emergency (ER) | payer MEDICARE, SELFPAY ==
[2025-03-21 16:05] VITALS: BP 128/62; PULSE 82; RESP 18; TEMP 36.8; O2SAT 98
--- NOTE | 2025-03-21 16:36 | RAD_ITS ---
PROCEDURE: CHEST 1 VIEW (PORTABLE) 03/21/2025 REASON FOR EXAM: CHEST PAIN TECHNIQUE: Frontal view of the chest. COMPARISON: None. FINDINGS: Lungs/Pleura: Clear. No focal airspace consolidation, pneumothorax, or sizable pleural effusion. Mild central pulmonary vascular congestion. Heart/Mediastinum: Mildly enlarged, although likely exaggerated by technique. Bones/Soft tissues: No significant abnormality. RAD/Chest 1 View (Portable) IMPRESSION: Mild cardiomegaly with vascular congestion. No appreciable airspace consolidation or pleural effusion. Reading Location: [facility]
--- NOTE | 2025-03-21 16:37 | EDS_ITS ---
HPI History of Present Illness Chief Complaint: Chest Pain Detail of Chief Complaint: Chest pain Informant: patient and spouse/S.O. Narrative Narrative: Patient presents with chest discomfort and right side pain that started initially 3 days ago. Patient has had continuous discomfort. He states he is always short of breath. He said some nausea. Discomfort worse with movement. Pain is not pleuritic. Denies abdominal pain. Denies fever or recent illness. Denies recent travel or surgery. He has history of coronary artery disease with 8 total stents. Patient does not have history of PE or DVT. He is on aspirin and Plavix. Denies recent illness. Denies injury or trauma. [facility] Medical History Dyspnea on exertion Nicotine dependence Obesity Coronary artery disease Vitamin D deficiency Appetite loss 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] Right hand pain SOB (shortness of breath) Fatigue Heartburn Syncope and collapse Pulmonary hypertension BMI 40.0-44.9, adult EtOH dependence Elevated liver function tests Anxiety Insomnia Tobacco dependence Sleep apnea Essential hypertension Chest pain Nocturnal hypoxemia COPD (chronic obstructive pulmonary disease) Home Medications ?Medication ?Instructions ?Recorded ?Last Taken ?Type trazodone 50 mg tablet 150 mg PO QHS PRN insomnia 0 02/08/23 Unknown History aspirin 81 mg tablet,delayed 81 mg PO DAILY heart heal th 02/16/23 02/02/24 History release losartan 50 mg tablet 50 mg PO DAILY blood pressur e 03/24/23 02/02/24 History nitroglycerin 0.4 mg sublingual 0.4 mg sublingual Q5M PRN 04/08/23 Unknown Rx tablet Cardiac/Chest Pain #15 tabs sertraline 100 mg tablet 100 mg PO QDAY mood 12/10/23 Unknown History clopidogrel 75 mg tablet 75 mg PO DAILY antiplatelet #90 05/22/24 Unknown Rx tabs atorvastatin 10 mg tablet 10 mg PO QHS cholesterol #60 tabs 08/07/24 Unknown Rx ranolazine 500 mg tablet,extended 500 mg PO BID #60 ta bs 11/10/24 Unknown Rx release,12 hr metoprolol tartrate 50 mg tablet 50 mg PO BID heart # 180 tabs 02/26/25 Unknown Rx hydrocodone-acetaminophen 5-325mg 1 tab PO Q4H PRN PRN Pain 2 days 03/21/25 Unknown Rx 5mg-325mg #10 TABLETS Allergy/AdvReac Type Severity Reaction Status Date / Time No Known Allergies Allergy Verified 03/21/25 16:07 Family History Mother Diabetes Heart disease Sister Pulmonary hypertension Father Cancer stomach Heart disease Surgical History Stented coronary artery Hx of cardiac catheterization (~02/02/24) Hx of plastic surgery Social History (Updated 03/21/25 @ 16:28 by Yarelis Cerda) household members: spouse Smoking Status: Current every day smoker tobacco type: cigarettes alcohol intake: current alcohol intake frequency: 3 or more drinks per day Alcohol type: beer details: 12 beer substance use type: does not use caffeine: No ROS ROS ED Review of Systems ROS Unobtainable: other Constitutional Constitutional ED: Reports lethargy; Denies chills, fever(s), sweats or weight loss Eyes Eyes: Denies blurry vision, change in vision or diplopia ENT ENT ED: Denies rhinorrhea or sore throat Cardiovascular Cardiovascular: Reports chest pain; Denies orthopnea or racing heartbeat Respiratory/Chest Respiratory/Chest: Reports dyspnea and dyspnea on exertion; Denies cough, orthopnea or sputum Gastrointestinal Gastrointestinal: Denies abdominal pain, diarrhea, nausea or vomiting Genitourinary Genitourinary ED: Denies dysuria, hematuria or urinary frequency Musculoskeletal Musculoskeletal: Denies arthralgias, back pain, myalgias or neck pain Integumentary Denies abscess, Abrasions or rash Neurologic Neurologic: Denies headache(s) or weakness Psychiatric Psychiatric: Denies anxiety, depression or suicidal thoughts Endocrine Endocrinology: Denies polydipsia, polyphagia or polyuria Hematologic/Lymphatic Hematologic/Lymphatic: Denies easy bleeding, easy bruising or lymphadenopathy Allergic/Immunologic Allergic/Immunologic ED: Denies mouth swelling, tongue swelling or urticaria EXAM Physical Exam Const Vital Signs: 03/21/25 16:05 03/21/25 16:29 03/21/25 16:49 Temperature 98.3 F Temperature Source Oral Pulse Rate 82 Respiratory Rate 18 Respiratory Effort Normal Non-Labored Respiratory Pattern Normal Blood Pressure 128/62 H Blood Pressure Mean 84 Pulse Ox 98 95 Oxygen Delivery Method Room Air Room Air 03/21/25 16:49 03/21/25 17:37 Temperature Temperature Source Pulse Rate 73 Respiratory Rate 17 Respiratory Effort Respiratory Pattern Blood Pressure Blood Pressure Mean Pulse Ox 97 Oxygen Delivery Method Room Air Positive well nourished and well developed General Appearance ED: well developed and NAD HEENT Reports TM's clear and moist mucous membranes normocephalic and atraumatic; Negative for trauma or tenderness Tympanic Membrane ED: Yes TM's clear Eyes PERRL and EOMs intact bilaterally General Eye ED: Negative for pale conjunctiva or scleral icterus Neck no lymphadenopathy, supple and no JVD General: Negative for tenderness Chest Wall Negative for inspection of chest normal or palpation of chest normal Chest Narrative: Tenderness palpation over the right chest wall in the mid axillary line in the anterior chest diffusely. No crepitus or subcu edema. No erythema or warmth noted Chest: Negative for tenderness Resp normal respiratory effort and clear to auscultation bilaterally Effort and Inspection: Negative for respiratory distress or pain with movement Auscultation: Negative for rhonchi, wheezes or diminished lung sounds Cardio regular rate, regular rhythm, S1 normal heart sound, S2 normal heart sound and no murmurs Peripheral Pulses: pulses 2+ throughout GI normal to inspection, nondistended, normoactive bowel sounds, soft to palpation, non-tender, non-distended and no masses Back/Spine no CVA tenderness and no thoracic nor lumbar tenderness Extremity normal to inspection General Extremety ED: Negative for edema General Extremity: Negative for edema Neuro oriented x3, CN's II-XII intact bilaterally, no sensory deficits noted and gait normal Sensorium / Orientation: awake, alert, oriented to person, oriented to place and oriented to time Motor Exam: strength 5/5 throughout and strength abnormal Psych mental status grossly normal Skin no rashes or lesions noted and no wounds Heart Score History: Slightly/Non-Suspicious ECG: Normal Age: >45 - <65 years Risk Factors: >/= 3 Risk Factors or History of CAD Troponin: </= Normal Limit Score: 3 MDM MDM MDM Narrative Medical decision making narrative: Patient presents with right-sided chest pain that radiates across the anterior part of the chest all the way across. Significant heart history in the past with stenting. No significant PE risk factors. Has not been ill otherwise. He does have history of COPD. Denies any injury. IV line established. EKG obtained on arrival showed a sinus rhythm with rate of 76 bpm with no acute ST segment changes. CBC with differential obtained showed a white count of 10.0 with hemoglobin 14.2 and platelet count of 175. Chemistries unremarkable. Troponin was normal at 7. LFTs were normal. 1 view chest x-ray showed some mild pulmonary congestion otherwise no acute process. Patient was medicated with morphine and Zofran. At this point suspect likely musculoskeletal etiology given that pain seems to be reproducible and seems to be positional with turning. Patient will be given a prescription for a few Sylvester for pain. Adv ised to follow-up with his primary care physician within next 5 to 7 days. I do not feel he is having an acute coronary syndrome. Lab Data Attestation: I reviewed the patient's lab results. Labs: Laboratory Results - last 24 hr 03/21/25 16:25 WBC 10.0 RBC 4.54 L Hgb 14.2 Hct 41.1 MCV 90.5 MCH 31.3 MCHC 34.5 RDW Std Deviation 42.0 RDW Coeff of Megan 12.7 Plt Count 175 MPV 11.1 Immature Gran % (Auto) 1.200 H Neut % (Auto) 67.2 Lymph % (Auto) 17.6 L Stephenson % (Auto) 8.9 Eos % (Auto) 4.7 Baso % (Auto) 0.4 Absolute Neuts (auto) 6.8 Absolute Lymphs (auto) 1.77 Nucleated RBC % 0 D-Dimer Quant (PE/DVT) 0.38 Sodium 131 L Potassium 4.2 Chloride 96 L Carbon Dioxide 22.6 Anion Gap 13 BUN 9 Creatinine 0.84 Est GFR (MDRD) Non-Af 100 BUN/Creatinine Ratio 10.4 Glucose 93 Calcium 9.4 Total Bilirubin 0.76 AST 32 ALT 40 Alkaline Phosphatase 57 Troponin T High Sens 7 Total Protein 7.2 Albumin 4.2 Globulin 3.1 Albumin/Globulin Ratio 1.3 Radiography Diagnostic Testing: Clinical Impression(s) from Imaging Studies Chest X-Ray 03/21/25 16:36 IMPRESSION: Mild cardiomegaly with vascular congestion. No appreciable airspace consolidation or pleural effusion. Reading Location: [facility] 1 view chest x-ray obtained interpreted by myself as no evidence of infiltrate or pneumothorax or acute disease process. Radiology felt there was mild cardiomegaly with vascular congestion. EKG Initial EKG: Attestation: I personally reviewed and interpreted this EKG as follows: Comments: Sinus rhythm with rate of 59 bpm with no acute ST segment change Discharge Plan Triage Chief Complaint: Chest Pain ED Provider: Kanu Villafana Dx/Rx/DC Orders Clinical Impression: Chest pain Instructions: ED Chest Pain, Uncertain Cause, ED Chest Wall Pain, Costochondritis Prescriptions: New hydrocodone-acetaminophen 5-325 mg tablet 1 tab PO Q4H PRN PRN (Reason: Pain) 2 Days Qty: 10 0RF No Action trazodone 50 mg tablet 150 mg PO QHS PRN (Reason: insomnia) Patient Comments: take 3 tablet by mouth at bedtime if needed for sleep / insomnia aspirin 81 mg tablet,delayed release (DR/EC) 81 mg PO DAILY losartan 50 mg tablet 50 mg PO DAILY sertraline 100 mg tablet 100 mg PO QDAY ranolazine 500 mg tablet extended release 12 hr 500 mg PO BID Qty: 60 11RF nitroglycerin 0.4 mg Tablet, Sublingual 0.4 mg sublingual Q5M PRN (Reason: Cardiac/Chest Pain) Qty: 15 3RF clopidogrel 75 mg tablet 75 mg PO DAILY Qty: 90 3RF atorvastatin 10 mg tablet 10 mg PO QHS Qty: 60 3RF metoprolol tartrate 50 mg tablet 50 mg PO BID Qty: 180 2RF Primary Care Provider: Sasha Jimenez Referrals: Sasha Jimenez, HEAD TRANSFER CLERK-C [Primary Care Provider] - 5-7 Days Print Language: Yakut Disposition Disposition: Home, Self Care
[2025-03-21] MEDS: 0.9% Normal Saline (1000mL) 1,000 ML 150 ML IV (16:47)
[2025-03-21 16:49] VITALS: O2SAT 95
[2025-03-21 16:53] LABS: Hematocrit 41.1 % (40-54); Hemoglobin 14.2 g/dL (13.0-16.5); Immature Granulocytes Count 0.120 X10^3/uL (0.0-0.0); Mean Corp Hgb Conc 34.5 g/dL (32-36); Mean Corpuscular Volume 90.5 fL (80-94); Mean Platelet Vol. 11.1 fl (6.2-12.0); NRBC Flagged by Analyzer 0 % (0-5); Platelet Count 175 K/mm3 (150-450); RBC Distribution Width CV 12.7 % (11.6-14.6); RBC Distribution Width SD 42.0 fl (35.1-43.9); Red Blood Count 4.54 M/mm3 (4.6-6.2); White Blood Count 10.0 K/mm3 (4.4-11.0)
[2025-03-21 17:07] LABS: D-Dimer Quantitative (DVT/PE) 0.38 FEU/ug/m (0.27-0.49)
[2025-03-21 17:08] LABS: AST(SGOT) 32 U/L (<=37); Alanine Aminotransfer ALT/SGPT 40 U/L (<=46); Albumin, Serum 4.2 g/dL (3.5-5.0); Alkaline Phosphatase 57 U/L (40-129); Anion Gap 13 (5-15); BUN 9 mg/dL (4-19); BUN/Creat Ratio 10.4 RATIO (10-20); Calcium,Total 9.4 mg/dL (7.6-11.0); Carbon Dioxide 22.6 mmol/L (21.0-32.0); Chloride 96 mmol/L (98-108); Globulin 3.1 g/dL (2.2-4.2); Glucose 93 mg/dL (70-99); Potassium 4.2 mmol/L (3.3-5.1); Troponin T High Sensitivity 7 ng/L (<=22)
[2025-03-21 17:37] VITALS: PULSE 73; RESP 17; O2SAT 97
[2025-03-21 18:08] VITALS: BP 133/79; PULSE 78; RESP 19; TEMP 36.6; O2SAT 98
== END 2025-03-21 18:09 | disposition home or self-care (01) ==
PROVIDERS: Emergency Provider Emergency Medicine; PCP Nurse Practitioner Family; Visit Provider Emergency Medicine
DX: R07.89 Other chest pain (principal); J44.9 Chronic obstructive pulmonary disease, unspecified; R06.02 Shortness of breath; R11.0 Nausea; I10 Essential (primary) hypertension; F41.9 Anxiety disorder, unspecified; I25.10 Atherosclerotic heart disease of native coronary artery without angina pectoris; G47.30 Sleep apnea, unspecified; F17.210 Nicotine dependence, cigarettes, uncomplicated; Z95.5 Presence of coronary angioplasty implant and graft; Z79.02 Long term (current) use of antithrombotics/antiplatelets; Z79.82 Long term (current) use of aspirin; Z79.899 Other long term (current) drug therapy
CPT/HCPCS: 71045; 80053; 84484; 85025; 85379; 93005; 96361; 96374; 96375; 99284; A4216; J2405

== ENCOUNTER 2025-04-23 08:48 | Observation (INO) | payer MEDICARE, SELFPAY ==
[2025-04-23] VITALS (25 sets, daily range): BP systolic 104–167; BP diastolic 62–109; PULSE 70–112; RESP 16–21; TEMP 36.1–37.4; O2SAT 85–97; BMI 40.8; BMI 41.0; BMI 41.8
--- NOTE | 2025-04-23 09:57 | US_ITS ---
PROCEDURE: TESTICULAR WITH ARTERIAL FLOW 04/23/2025 REASON FOR EXAM: RIGHT TESTICLE PAIN TECHNIQUE: Procedure Code: USTES Modality: US Procedure: TESTICULAR WITH ARTERIAL FLOW COMPARISON: None FINDINGS: RIGHT testicle: 4 cm x 2.9 cm x 2.3 cm It is of heterogeneous echotexture. Right epididymis: 0.7 cm 1.2 cm 1.1 cm. There is a epididymal cyst measuring 5 mm x 4 mm x 3 mm. LEFT testicle: 4.2 cm x 2.8 cm x 2 cm Homogeneous echotexture of the testicle. Left epididymis: 1.1 cm 1.5 cm 0.8 cm. There is a 0.4 cm 0.4 cm x 0.3 cm epididymal cyst. Other findings: Small bilateral hydroceles. US/Testicular with Arterial Flow IMPRESSION: No evidence of testicular torsion. Small bilateral epididymal cysts. Small bilateral hydroceles. Reading Location: [place] [id number]
--- NOTE | 2025-04-23 09:57 | US_ITS ---
PROCEDURE: TESTICULAR WITH ARTERIAL FLOW 04/23/2025 REASON FOR EXAM: RIGHT TESTICLE PAIN TECHNIQUE: Procedure Code: USTES Modality: US Procedure: TESTICULAR WITH ARTERIAL FLOW COMPARISON: None FINDINGS: RIGHT testicle: 4 cm x 2.9 cm x 2.3 cm It is of heterogeneous echotexture. Right epididymis: 0.7 cm 1.2 cm 1.1 cm. There is a epididymal cyst measuring 5 mm x 4 mm x 3 mm. LEFT testicle: 4.2 cm x 2.8 cm x 2 cm Homogeneous echotexture of the testicle. Left epididymis: 1.1 cm 1.5 cm 0.8 cm. There is a 0.4 cm 0.4 cm x 0.3 cm epididymal cyst. Other findings: Small bilateral hydroceles. US/Testicular with Arterial Flow IMPRESSION: No evidence of testicular torsion. Small bilateral epididymal cysts. Small bilateral hydroceles. Reading Location: [place] [id number]
--- NOTE | 2025-04-23 09:57 | CT_ITS ---
PROCEDURE: ABDOMEN/PELVIS W IV CONT ONLY 04/23/2025 REASON FOR EXAM: RIGHT LOWER QUADRANT ABDOMINAL PAIN TECHNIQUE: Procedure Code: [id number] Modality: CT Procedure: ABDOMEN/PELVIS W IV CONT ONLY Coronal and Sagittal reconstruction series were provided. CONTRAST: Isovue-300 VOLUME: 100 mL One or more dose reduction techniques were used (e.g., Automated exposure control, adjustment of the mA and/or kV according to patient size, use of iterative reconstruction technique. RADIATION DOSE SUMMARY: CTDlvol: 82 mGy DLP: 2525 mGycm COMPARISON: None FINDINGS: Lung bases: Mild dependent atelectasis. Coronary artery atherosclerosis. Liver: Mild fatty liver. Gallbladder: Normal Spleen: Normal Pancreas: Normal Adrenals: Normal Kidneys: Sub 5 mm cyst in the right mid to upper pole and right lower pole. No collecting system dilation, calculus or solid mass. Bladder: Normal Reproductive Organs: Normal Bowel: Small sliding hiatus hernia. Small bowel is normal. Numerous colonic diverticula are seen without diverticulitis. Appendix: There is significant stranding in the periappendiceal soft tissues. No phlegmon or abscess seen. A few reactive lymph nodes are seen in the ileocolic region. Lymph nodes: None appear enlarged. Vasculature: Severe atherosclerosis without aneurysm. Peritoneum / Retroperitoneum: No free air, free fluid or mass. Bones: Sclerotic focus in the L5 vertebral body on the right is likely a bone island. Small fat containing right inguinal hernia. CT/Abdomen/Pelvis W IV Cont ONLY IMPRESSION: 1. Mild fatty liver. 2. Acute, uncomplicated appendicitis. Significant amount of inflammatory geronimo ges shown in the periappendiceal fat. 3. Diverticulosis without diverticulitis. 4. Small fat containing right inguinal hernia. Reading Location: [id number]
--- NOTE | 2025-04-23 10:03 | EX.ED.DYSGE1 ---
HPI History of Present Illness Chief Complaint: Abd Pain Narrative Narrative: Chief complaint and HPI: 59-year-old male with past medical history of CAD with PCI, HTN, HLD presents for evaluation of right lower quadrant abdominal pain. Onset of symptoms yesterday and radiates into his right testicle. Endorses constipation in which she has taken stool softeners with minimal relief. Endorses nausea. Has a history of constipation. Denies any fever, chills, shortness of breath, chest pain, vomiting, dysuria. No history of kidney stones. Review of systems: See HPI Medications: As listed on the chart Allergies: As listed on the chart PFSH: Per chart Vital signs: As listed on the chart. Reviewed. Physical exam: Gen: A&O x3, NAD Head: Normocephalic, atraumatic Eyes: No sclera icterus, conjunctiva clear ENT: Moist mucous membranes Neck: Trachea midline CV: RRR, no murmurs Resp: Lungs CTA BL, no w/r/c GI: Abd soft, non-distended, tender to palpation in the right lower quadrant and suprapubic region, no rebound or rigidity : No CVA tenderness. Circumcised penis. No penile tenderness or discharge. No penile or testicular swelling. Normal lie and position of the testicles. Right testicle tender to palpation diffusely without masses or skin changes. Cremasteric reflexes intact and equal bilaterally. No rashes. No palpable hernias. Musc: Full ROM, no deformity Skin: Warm, dry Neuro: Alert, oriented, grossly intact, sensation intact Psych: Cooperative, appropriate mood and affect [facility] History Dyspnea on exertion Nicotine dependence Obesity Coronary artery disease Vitamin D deficiency Appetite loss 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] Right hand pain SOB (shortness of breath) Fatigue Heartburn Syncope and collapse Pulmonary hypertension BMI 40.0-44.9, adult EtOH dependence Elevated liver function tests Anxiety Insomnia Tobacco dependence Sleep apnea Essential hypertension Chest pain Nocturnal hypoxemia COPD (chronic obstructive pulmonary disease) Home Medications ?Medication ?Instructions ?Recorded ?Last Taken ?Type trazodone 50 mg tablet 150 mg PO QHS PRN insomnia 02/08/23 04/22/25 History aspirin 81 mg tablet,delayed 81 mg PO DAILY heart health 02/16/23 04/23/25 History release losartan 50 mg tablet 50 mg PO DAILY blood pressure 03/24/23 04/22/25 History nitroglycerin 0.4 mg sublingual 0.4 mg sublingual Q5M PRN 04/08/23 Unknown Rx tablet Cardiac/Chest Pain #15 tabs clopidogrel 75 mg tablet 75 mg PO DAILY antiplatelet #90 05/22/24 04/23/25 Rx tabs ranolazine 500 mg tablet,extended 500 mg PO BID HEART #60 tabs 11/10/24 04/23/25 Rx release,12 hr metoprolol tartrate 50 mg tablet 50 mg PO BID heart #180 tabs 02/26/25 04/23/25 Rx atorvastatin 10 mg tablet 10 mg PO QHS cholesterol #90 tabs 04/03/25 04/22/25 Rx magnesium 250 mg tablet 250 mg PO DAILY SUPPLEMENT 04/23/25 04/22/25 History multivitamin (Daily Multi-Vitamin 1 tab PO DAILY SUPPLEMENT 04/23/25 04/22/25 History tablet) sertraline 50 mg tablet 50 mg PO DAILY MOOD 04/23/25 04/22/25 History Allergy/AdvReac Type Severity Reaction Status Date / Time No Known Allergies Allergy Verified 04/23/25 08:49 Family History Mother Diabetes Heart disease Sister Pulmonary hypertension Father Cancer stomach Heart disease Surgical History Stented coronary artery Hx of cardiac catheterization (~02/02/24) Hx of plastic surgery Social History (Updated 03/21/25 @ 16:28 by Yarelis Cerda) household members: spouse Smoking Status: Current every day smoker tobacco type: cigarettes alcohol intake: current alcohol intake frequency: 3 or more drinks per day Alcohol type: beer details: 12 beer substance use type: does not use caffeine: No EXAM Physical Exam Const Vital Signs: 04/23/25 08:49 04/23/25 11:46 Temperature 99.0 F Temperature Source Oral Pulse Rate 86 70 Respiratory Rate 18 18 Blood Pressure 144/72 H 163/63 H Blood Pressure Mean 96 96 Pulse Ox 96 97 Oxygen Delivery Method Room Air Room Air MDM MDM MDM Narrative Medical decision making narrative: 59-year-old male with past medical history of CAD with PCI, HTN, HLD presents for evaluation of right lower quadrant abdominal pain. Onset of symptoms yesterday and radiates into his right testicle. Endorses constipation and nausea. Differential diagnosis includes but is not limited to appendicitis, UTI, urolithiasis, epididymitis, gastroenteritis, constipation. NS bolus, morphine, Zofran ordered for symptoms. Abdominal pain workup ordered including CT abdomen pelvis and testicular ultrasound. CBC with mild leukocytosis 11.2. No anemia. Platelets unremarkable. His CMP relatively unremarkable. Lipase unremarkable. UA negative for UTI. Testicular ultrasound negative for torsion. Small bilateral epididymal cyst and bilateral hydroceles. CT abdomen pelvis shows mild fatty liver. Acute uncomplicated appendicitis. Diverticulosis without diverticulitis. Small fat-containing right inguinal hernia. Patient's symptoms are likely secondary to acute appendicitis. Patient NPO. Zosyn ordered. Patient was updated of the results and the plan for surgery. He confirmed understanding. Patient was discussed with Dr. Zavala who will be taking the patient to the OR. Impression: 1. Acute appendicitis Lab Data Labs: Laboratory Results - last 24 hr 04/23/25 04/23/25 10:00 11:26 WBC 11.2 H RBC 4.46 L Hgb 14.0 Hct 40.7 MCV 91.3 MCH 31.4 MCHC 34.4 RDW Std Deviation 41.7 RDW Coeff of Megan 12.6 Plt Count 157 MPV 10.7 Immature Gran % (Auto) 0.500 Neut % (Auto) 76.9 H Lymph % (Auto) 10.4 L [place] % (Auto) 10.4 H Eos % (Auto) 1.6 Baso % (Auto) 0.2 Absolute Neuts (auto) 8.6 H Absolute Lymphs (auto) 1.17 Nucleated RBC % 0 Sodium 136 Potassium 4.2 Chloride 102 Carbon Dioxide 24.1 Anion Gap 10 BUN 7 Creatinine 0.82 Estim Creat Clear Calc 139.23 Est GFR (MDRD) Non-Af 101 BUN/Creatinine Ratio 8.7 L Glucose 143 H Calcium 9.1 Total Bilirubin 0.98 AST 20 ALT 25 Alkaline Phosphatase 52 Total Protein 7.0 Albumin 4.0 Globulin 3.0 Albumin/Globulin Ratio 1.3 Lipase 25 Urine Color Yellow Urine Clarity Clear Urine pH 7.0 Ur Specific [place] 1.005 Urine Protein 15 H Urine Glucose (UA) Normal Urine Ketones Negative Urine Occult Blood Negative Urine Nitrite Negative Urine Bilirubin Negative Urine Urobilinogen Normal Ur Leukocyte Esterase Negative Urine RBC 0-5 SEEN Urine WBC 0-5 SEEN Ur Squamous Epith Cells 0 SEEN Urine Bacteria 0 SEEN Urine Mucus RARE Radiography Diagnostic Testing: Clinical Impression(s) from Imaging Studies Abdomen/Pelvis CT 04/23/25 09:57 IMPRESSION: 1. Mild fatty liver. 2. Acute, uncomplicated appendicitis. Significant amount of inflammatory changes shown in the periappendiceal fat. 3. Diverticulosis without diverticulitis. 4. Small fat containing right inguinal hernia. Reading Location: [id number] Testicular Ultrasound 04/23/25 09:57 IMPRESSION: No evidence of testicular torsion. Small bilateral epididymal cysts. Small bilateral hydroceles. Reading Location: [facility] Discharge Plan Triage Chief Complaint: Abd Pain ED Provider: Lloyd Gerard Dx/Rx/DC Orders Prescriptions: No Action trazodone 50 mg tablet 150 mg PO QHS PRN (Reason: insomnia) Patient Comments: take 3 tablet by mouth at bedtime if needed for sleep / insomnia aspirin 81 mg tablet,delayed release (DR/EC) 81 mg PO DAILY losartan 50 mg tablet 50 mg PO DAILY ranolazine 500 mg tablet extended release 12 hr 500 mg PO BID Qty: 60 11RF Patient Comments: PT STATES TAKES 1 TAB QAM nitroglycerin 0.4 mg Tablet, Sublingual 0.4 mg sublingual Q5M PRN (Reason: Cardiac/Chest Pain) Qty: 15 3RF sertraline 50 mg tablet 50 mg PO DAILY multivitamin [Daily Multi-Vitamin] Tablet 1 tab PO DAILY magnesium 250 mg tablet 250 mg PO DAILY clopidogrel 75 mg tablet 75 mg PO DAILY Qty: 90 3RF metoprolol tartrate 50 mg tablet 50 mg PO BID Qty: 180 2RF atorvastatin 10 mg tablet 10 mg PO QHS Qty: 90 3RF Primary Care Provider: Shaniqua Harrington Referrals: Sasha Jimenez NP-C [Med Staff - Adv Practice Prof, Internal Medicine] Print Language: Amharic
[2025-04-23] MEDS: 0.9% Normal Saline (1000mL) 1,000 ML 999 ML IV (10:06)
[2025-04-23 10:12] LABS: Hematocrit 40.7 % (40-54); Hemoglobin 14.0 g/dL (13.0-16.5); Immature Granulocytes Count 0.060 X10^3/uL (0.0-0.0); Mean Corp Hgb Conc 34.4 g/dL (32-36); Mean Corpuscular Volume 91.3 fL (80-94); Mean Platelet Vol. 10.7 fl (6.2-12.0); NRBC Flagged by Analyzer 0 % (0-5); Platelet Count 157 K/mm3 (150-450); RBC Distribution Width CV 12.6 % (11.6-14.6); RBC Distribution Width SD 41.7 fl (35.1-43.9); Red Blood Count 4.46 M/mm3 (4.6-6.2); White Blood Count 11.2 K/mm3 (4.4-11.0)
[2025-04-23 10:33] LABS: AST(SGOT) 20 U/L (<=37); Alanine Aminotransfer ALT/SGPT 25 U/L (<=46); Albumin, Serum 4.0 g/dL (3.5-5.0); Alkaline Phosphatase 52 U/L (40-129); Anion Gap 10 (5-15); BUN 7 mg/dL (4-19); BUN/Creat Ratio 8.7 RATIO (10-20); Calcium,Total 9.1 mg/dL (7.6-11.0); Carbon Dioxide 24.1 mmol/L (21.0-32.0); Chloride 102 mmol/L (98-108); Estimated Creatinine Clearance 139.23 ml/min (50-250); Globulin 3.0 g/dL (2.2-4.2); Glucose 143 mg/dL (70-99); Lipase 25 U/L (13-75); Potassium 4.2 mmol/L (3.3-5.1)
[2025-04-23 11:33] LABS: Squamous Epithelial Cells - UA 0 SEEN /hpf (0-5)
[2025-04-23 11:39] LABS: Color, Urine Yellow (Yellow); Glucose, Dipstick Normal (Normal); Ketone-Dipstick Negative (Negative); Leukocyte Esterase-Dipstick Negative /ul (Negative); Nitrite-Dipstick Negative (Negative); Occult Blood-Urine Negative /ul (Negative); Protein-Dipstick 15 mg/dl (Negative); Specific Gravity, Urine 1.005 (1.002-1.030); Urine Bilirubin Dipstick Negative (Negative)
[2025-04-23 11:49] LABS: Mucous, Urine RARE /hpf (<or=2+); Red Blood Cells-Urine 0-5 SEEN /hpf (0-5)
[2025-04-23] MEDS: Piperacil/Tazobactam 3.375 GM in 0.9% Normal Saline (50mL MB+) 50 ML IV ×2 (12:09→21:24)
--- NOTE | 2025-04-23 12:20 | PRE.ANES_ITS ---
ASA Classification* ASA Classification ASA Classification: 3 and E Assessment & Plan Anesthesia* Anesthesia Assessment Anesthesia Assessment: Discussed sedation and/or anesthesia options, risks, benefits, and alternatives with patient/parents/legal guardian/POA. Questions invited. The patient/parents/legal guardian/POA seems to understand and agrees to proceed with anesthesia plan. Reviewed the physical assessment, medical history, allergy history and patient home medications list prior to surgery/procedure/anesthetic and documented any changes. Performed airway and anesthesia risk assessments. Anesthesia Type Anesthesia Type: General Anesthesia Focused Assessment* Temperature: 98.3 F Pulse Rate: 77 Blood Pressure: 149/62 Respiratory Rate: 18 Pulse Ox: 96 Airway Assessment Mouth opens: >3 cm Mallampati Score: II Labs Anesthesia Preop lab: CBC WBC, (4.4-11.0) 11.2 K/mm3 H Today, 10:00 RBC, (4.6-6.2) 4.46 M/mm3 L Today, 10:00 Hgb, (13.0-16.5) 14.0 g/dL Today, 10:00 Hct, (40-54) 40.7 % Today, 10:00 Plt Count, (150-450) 157 K/mm3 Today, 10:00 CHEMISTRY Potassium, (3.3-5.1) 4.2 mmol/L Today, 10:00 Sodium, (133-145) 136 mmol/L Today, 10:00 Magnesium, (1.6-2.6) 2.0 mg/dL 02/02/24, 14:12 Phosphorus, (2.5-4.9) 3.2 mg/dL 02/02/24, 14:12 BUN, (4-19) 7 mg/dL Today, 10:00 Creatinine, (0.70-1.20) 0.82 mg/dL Today, 10:00 Glucose, (70-99) 143 mg/dL H Today, 10:00 COAG PT, (11.7-14.9) 13.3 SECONDS 01/14/24, 09:33 Pre-Assessment Diagnosis/Proposed Procedure Planned Operative Procedure(s): Laparoscopic appendectomy. Anesthesia History Anesthesia History - skeiner: Anesthesia History - skeiner Hx Hospitalization Any Problems With Anesthesia No 04/23/25 12:11 Cholinesterase deficiency You/Your Family Experience No 04/23/25 12:11 fever (hyperthermia) with Relationship Recent Exposure to Contagious Disease Does patient have nerve No 04/23/25 12:11 stimulator Patient instructed to have No 04/23/25 12:11 device shut off --Does patient have Pacemaker or ICD? When Was Last Pacemaker Check QUESTION #4 FULL TEXT: You/Your Family Experience fever (hyperthermia) with Anesthesia Last Oral Intake Last Oral intake: Last Oral Intake NPO since Meds taken in AM with sips of water? Meds patient instructed to take am of surgery PONV PONV - skeiner: PONV - skeiner Female HX of Motion Sickness HX of N/V After Surgery Non-Smoker Duration of Surgery greater than 60 minutes Number of Risk Factors PONV Score Height & Weight Height & Weight: Anesthesia: Height & Weight Height 6 ft 04/23/25 12:11 Weight: 137.3 kg 04/23/25 12:11 Body Mass Index (BMI) 41.0 04/23/25 12:11 Respiratory Assessment Respiratory Assessment - skeiner: Respiratory Tract Infection Hx - skeiner Hx Respiratory Tract Infection STOP Sleep Apnea STOP Sleep Apnea - skeiner: STOP Sleep Apnea - skeiner Hx Hypertension Yes 04/23/25 12:11 Hx Sleep Apnea Yes 04/23/25 12:11 CPAP No 04/23/25 12:11 BIPAP No 04/23/25 12:11 Do you snore loudly (louder than talking or can be heard Do you often feel tired/ fatigued/ sleepy during daytime? Has anyone observed you stop breathing during sleep? STOP Results Positive 04/23/25 12:11 QUESTION #5 FULL TEXT : Do you snore loudly (louder than talking or can be heard through closed doors)? 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 Specify any problems Hx of Preganancy in last 3 Months Nurse Filling Out Transfusion & Questions: Date: Time: Patient unable to answer at this time (ie. confused, unrespo /Reproduction History /Reproductive History - skeiner: /Reproductive Hx- skeiner Hx Now No 04/23/25 12:11 Gestational Age (in weeks): EDC: Hx Hx Para Hx Section SAB No 04/23/25 12:11 Active Medications Active Medications: Current Medications Generic Name Dose Route Start Last Admin Trade Name Freq PRN Reason Stop Dose Admin Piperacillin Sod/Tazobactam 50 mls @ 100 mls/hr 04/23/25 11:55 04/23/25 12:09 Sod 3.375 gm/ Sodium Chloride IV 04/23/25 12:24 100 mls/hr X1 ONE Administration PFSH Medical History Dyspnea on exertion Nicotine dependence Obesity Coronary artery disease Vitamin D deficiency Appetite loss 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] Right hand pain SOB (shortness of breath) Fatigue Heartburn Syncope and collapse Pulmonary hypertension BMI 40.0-44.9, adult EtOH dependence Elevated liver function tests Anxiety Insomnia Tobacco dependence Sleep apnea Essential hypertension Chest pain Nocturnal hypoxemia COPD (chronic obstructive pulmonary disease) Home Medications ?Medication ?Instructions ?Recorded ?Last Taken ?Type trazodone 50 mg tablet 150 mg PO QHS PRN insomnia 0 02/08/23 04/22/25 History aspirin 81 mg tablet,delayed 81 mg PO DAILY heart heal th 02/16/23 04/23/25 History release losartan 50 mg tablet 50 mg PO DAILY blood pressur e 03/24/23 04/22/25 History nitroglycerin 0.4 mg sublingual 0.4 mg sublingual Q5M PRN 04/08/23 Unknown Rx tablet Cardiac/Chest Pain #15 tabs clopidogrel 75 mg tablet 75 mg PO DAILY antiplatelet #90 05/22/24 04/23/25 Rx tabs ranolazine 500 mg tablet,extended 500 mg PO BID HEART #60 tabs 11/10/24 04/23/25 Rx release,12 hr metoprolol tartrate 50 mg tablet 50 mg PO BID heart # 180 tabs 02/26/25 04/23/25 Rx atorvastatin 10 mg tablet 10 mg PO QHS cholesterol #90 tabs 04/03/25 04/22/25 Rx magnesium 250 mg tablet 250 mg PO DAILY SUPPLEMENT 1 04/22/25 History multivitamin (Daily Multi-Vitamin 1 tab PO DAILY SUPPL EMENT 04/23/25 04/22/25 History tablet) sertraline 50 mg tablet 50 mg PO DAILY MOOD 04/23/25 04/22/25 History Allergy/AdvReac Type Severity Reaction Status Date / Time No Known Allergies Allergy Verified 04/23/25 08:49 Family History Mother Diabetes Heart disease Sister Pulmonary hypertension Father Cancer stomach Heart disease Surgical History Stented coronary artery Hx of cardiac catheterization (~02/02/24) Hx of plastic surgery Social History household members: spouse Smoking Status: Current every day smoker tobacco type: cigarettes alcohol intake: current alcohol intake frequency: 3 or more drinks per day Alcohol type: beer details: 12 beer substance use type: does not use caffeine: No Review of Systems (Anesthesia) ROS Narrative System reviewed and no additional complaints, except as documented.
--- NOTE | 2025-04-23 12:20 | PRE.ANES_ITS ---
ASA Classification* ASA Classification ASA Classification: 3 and E Assessment & Plan Anesthesia* Anesthesia Assessment Anesthesia Assessment: Discussed sedation and/or anesthesia options, risks, benefits, and alternatives with patient/parents/legal guardian/POA. Questions invited. The patient/parents/legal guardian/POA seems to understand and agrees to proceed with anesthesia plan. Reviewed the physical assessment, medical history, allergy history and patient home medications list prior to surgery/procedure/anesthetic and documented any changes. Performed airway and anesthesia risk assessments. Anesthesia Type Anesthesia Type: General Anesthesia Focused Assessment* Temperature: 98.3 F Pulse Rate: 77 Blood Pressure: 149/62 Respiratory Rate: 18 Pulse Ox: 96 Airway Assessment Mouth opens: >3 cm Mallampati Score: II Labs Anesthesia Preop lab: CBC WBC, (4.4-11.0) 11.2 K/mm3 H Today, 10:00 RBC, (4.6-6.2) 4.46 M/mm3 L Today, 10:00 Hgb, (13.0-16.5) 14.0 g/dL Today, 10:00 Hct, (40-54) 40.7 % Today, 10:00 Plt Count, (150-450) 157 K/mm3 Today, 10:00 CHEMISTRY Potassium, (3.3-5.1) 4.2 mmol/L Today, 10:00 Sodium, (133-145) 136 mmol/L Today, 10:00 Magnesium, (1.6-2.6) 2.0 mg/dL 02/02/24, 14:12 Phosphorus, (2.5-4.9) 3.2 mg/dL 02/02/24, 14:12 BUN, (4-19) 7 mg/dL Today, 10:00 Creatinine, (0.70-1.20) 0.82 mg/dL Today, 10:00 Glucose, (70-99) 143 mg/dL H Today, 10:00 COAG PT, (11.7-14.9) 13.3 SECONDS 01/14/24, 09:33 Pre-Assessment Diagnosis/Proposed Procedure Planned Operative Procedure(s): Laparoscopic appendectomy. 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 When Was Last Pacemaker Check QUESTION #4 FULL TEXT: You/Your Family Experience fever (hyperthermia) with Anesthesia Last Oral Intake Last Oral intake: Last Oral Intake NPO since Meds taken in AM with sips of water? Meds patient instructed to take am of surgery PONV PONV - commercial hvac service technician: PONV - commercial hvac service technician Female HX of Motion Sickness HX of N/V After Surgery Non-Smoker Duration of Surgery greater than 60 minutes Number of Risk Factors PONV Score Height & Weight Height & Weight: Anesthesia: Height & Weight Height 6 ft 04/23/25 12:11 Weight: 137.3 kg 04/23/25 12:11 Body Mass Index (BMI) 41.0 04/23/25 12:11 Respiratory Assessment Respiratory Assessment - commercial hvac service technician: Respiratory Tract Infection Hx - commercial hvac service technician Hx Respiratory Tract Infection STOP Sleep Apnea STOP Sleep Apnea - commercial hvac service technician: STOP Sleep Apnea - commercial hvac service technician Hx Hypertension Yes 04/23/25 12:11 Hx Sleep Apnea Yes 04/23/25 12:11 CPAP No 04/23/25 12:11 BIPAP No 04/23/25 12:11 Do you snore loudly (louder than talking or can be heard Do you often feel tired/ fatigued/ sleepy during daytime? Has anyone observed you stop breathing during sleep? STOP Results Positive 04/23/25 12:11 QUESTION #5 FULL TEXT : Do you snore loudly (louder than talking or can be heard through closed doors)? 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 Specify any problems Hx of Preganancy in last 3 Months Nurse Filling Out Transfusion & Questions: Date: Time: Patient unable to answer at this time (ie. confused, unrespo /Reproduction History /Reproductive History - commercial hvac service technician: /Reproductive Hx- commercial hvac service technician Hx Now No 04/23/25 12:11 Gestational Age (in weeks): EDC: Hx Hx Para Hx Section SAB No 04/23/25 12:11 Active Medications Active Medications: Current Medications Generic Name Dose Route Start Last Admin Trade Name Freq PRN Reason Stop Dose Admin Piperacillin Sod/Tazobactam 50 mls @ 100 mls/hr 04/23/25 11:55 04/23/25 12:09 Sod 3.375 gm/ Sodium Chloride IV 04/23/25 12:24 100 mls/hr X1 ONE Administration PFSH Medical History Dyspnea on exertion Nicotine dependence Obesity Coronary artery disease Vitamin D deficiency Appetite loss 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] Right hand pain SOB (shortness of breath) Fatigue Heartburn Syncope and collapse Pulmonary hypertension BMI 40.0-44.9, adult EtOH dependence Elevated liver function tests Anxiety Insomnia Tobacco dependence Sleep apnea Essential hypertension Chest pain Nocturnal hypoxemia COPD (chronic obstructive pulmonary disease) Home Medications ?Medication ?Instructions ?Recorded ?Last Taken ?Type trazodone 50 mg tablet 150 mg PO QHS PRN insomnia 0 02/08/23 04/22/25 History aspirin 81 mg tablet,delayed 81 mg PO DAILY heart heal th 02/16/23 04/23/25 History release losartan 50 mg tablet 50 mg PO DAILY blood pressur e 03/24/23 04/22/25 History nitroglycerin 0.4 mg sublingual 0.4 mg sublingual Q5M PRN 04/08/23 Unknown Rx tablet Cardiac/Chest Pain #15 tabs clopidogrel 75 mg tablet 75 mg PO DAILY antiplatelet #90 05/22/24 04/23/25 Rx tabs ranolazine 500 mg tablet,extended 500 mg PO BID HEART #60 tabs 11/10/24 04/23/25 Rx release,12 hr metoprolol tartrate 50 mg tablet 50 mg PO BID heart # 180 tabs 02/26/25 04/23/25 Rx atorvastatin 10 mg tablet 10 mg PO QHS cholesterol #90 tabs 04/03/25 04/22/25 Rx magnesium 250 mg tablet 250 mg PO DAILY SUPPLEMENT 1 04/22/25 History multivitamin (Daily Multi-Vitamin 1 tab PO DAILY SUPPL EMENT 04/23/25 04/22/25 History tablet) sertraline 50 mg tablet 50 mg PO DAILY MOOD 04/23/25 04/22/25 History Allergy/AdvReac Type Severity Reaction Status Date / Time No Known Allergies Allergy Verified 04/23/25 08:49 Family History Mother Diabetes Heart disease Sister Pulmonary hypertension Father Cancer stomach Heart disease Surgical History Stented coronary artery Hx of cardiac catheterization (~02/02/24) Hx of plastic surgery Social History household members: spouse Smoking Status: Current every day smoker tobacco type: cigarettes alcohol intake: current alcohol intake frequency: 3 or more drinks per day Alcohol type: beer details: 12 beer substance use type: does not use caffeine: No Review of Systems (Anesthesia) ROS Narrative System reviewed and no additional complaints, except as documented.
--- NOTE | 2025-04-23 12:33 | EKG12_ITS ---
Test Reason : PRE OP Blood Pressure : */* mmHG Vent. Rate : 76 BPM Atrial Rate : 76 BPM P-R Int : 150 ms QRS Dur : 86 ms QT Int : 392 ms P-R-T Axes : 55 40 48 degrees QTcB Int : 441 ms Normal sinus rhythm Normal ECG When compared with ECG of 21-Mar-2025 16:14, No significant change was found Confirmed by NIKOLAI FRASER, JAG ([id number]), avid editor NICOLE ROJAS ([id number]) on 04/26/2025 6:29:37 AM Referred By: Confirmed By: JAG MENCHACA MD
--- NOTE | 2025-04-23 12:33 | EKG12_ITS ---
Test Reason : PRE OP Blood Pressure : */* mmHG Vent. Rate : 76 BPM Atrial Rate : 76 BPM P-R Int : 150 ms QRS Dur : 86 ms QT Int : 392 ms P-R-T Axes : 55 40 48 degrees QTcB Int : 441 ms Normal sinus rhythm Normal ECG When compared with ECG of 21-Mar-2025 16:14, No significant change was found Confirmed by NIKOLAI FRASER, JAG ([id number]), content editor NICOLE ROJAS ([id number]) on 04/26/2025 6:29:37 AM Referred By: Confirmed By: JAG MENCHACA MD
--- NOTE | 2025-04-23 12:41 | HP.PCM.SX_ITS ---
HPI - General HPI Narrative RICHARD OLIVEROS, is a 59 M who presents with lower abdominal pain. Patient reports the pain started yesterday. He denies fevers or chills. Says the pain is in the right lower quadrant does radiate down to his right testicle. [facility] Medical History Dyspnea on exertion Nicotine dependence Obesity Coronary artery disease Vitamin D deficiency Appetite loss 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] Right hand pain SOB (shortness of breath) Fatigue Heartburn Syncope and collapse Pulmonary hypertension BMI 40.0-44.9, adult EtOH dependence Elevated liver function tests Anxiety Insomnia Tobacco dependence Sleep apnea Essential hypertension Chest pain Nocturnal hypoxemia COPD (chronic obstructive pulmonary disease) Home Medications ?Medication ?Instructions ?Recorded ?Last Taken ?Type trazodone 50 mg tablet 150 mg PO QHS PRN insomnia 0 02/08/23 04/22/25 History aspirin 81 mg tablet,delayed 81 mg PO DAILY heart heal th 02/16/23 04/23/25 History release losartan 50 mg tablet 50 mg PO DAILY blood pressur e 03/24/23 04/22/25 History nitroglycerin 0.4 mg sublingual 0.4 mg sublingual Q5M PRN 04/08/23 Unknown Rx tablet Cardiac/Chest Pain #15 tabs clopidogrel 75 mg tablet 75 mg PO DAILY antiplatelet #90 05/22/24 04/23/25 Rx tabs ranolazine 500 mg tablet,extended 500 mg PO BID HEART #60 tabs 11/10/24 04/23/25 Rx release,12 hr metoprolol tartrate 50 mg tablet 50 mg PO BID heart # 180 tabs 02/26/25 04/23/25 Rx atorvastatin 10 mg tablet 10 mg PO QHS cholesterol #90 tabs 04/03/25 04/22/25 Rx magnesium 250 mg tablet 250 mg PO DAILY SUPPLEMENT 1 04/22/25 History multivitamin (Daily Multi-Vitamin 1 tab PO DAILY SUPPL EMENT 04/23/25 04/22/25 History tablet) sertraline 50 mg tablet 50 mg PO DAILY MOOD 04/23/25 04/22/25 History Allergy/AdvReac Type Severity Reaction Status Date / Time No Known Allergies Allergy Verified 04/23/25 12:41 Family History Mother Diabetes Heart disease Sister Pulmonary hypertension Father Cancer stomach Heart disease Surgical History Stented coronary artery Hx of cardiac catheterization (~02/02/24) Hx of plastic surgery Social History household members: spouse Smoking Status: Current every day smoker tobacco type: cigarettes alcohol intake: current alcohol intake frequency: 3 or more drinks per day Alcohol type: beer details: 12 beer substance use type: does not use caffeine: No ROS Constitutional Constitutional: Denies anorexia, chills, fatigue or fever(s) Eyes Eyes: Denies blurry vision ENT HEENT: Denies abnormal hearing Cardiovascular Cardiovascular: Reports chest pain Respiratory/Chest Respiratory/Chest: Reports dyspnea on exertion; Denies cough Gastrointestinal Gastrointestinal: Reports abdominal pain; Denies change in bowel habits, coffee ground emesis, nausea or vomiting Genitourinary Genitourinary: Denies change in urinary stream or difficulty urinating Musculoskeletal Musculoskeletal: Denies abnormal gait Integumentary Integumentary: Denies jaundice or new lesions Neurologic Neurologic: Denies abnormal gait Psychiatric Psychiatric: Denies anxiety Vital Signs Vital Signs Vital Signs: 04/23/25 08:49 04/23/25 11:46 04/23/25 12:11 Temperature 99.0 F Temperature Source Oral Pulse Rate 86 70 78 Respiratory Rate 18 18 18 Blood Pressure 144/72 H 163/63 H 149/62 H Blood Pressure Mean 96 96 91 Blood Pressure Source Monitor Blood Pressure Position Semi-Fowlers Blood Pressure Location Right Arm Pulse Ox 96 97 97 Oxygen Delivery Method Room Air Room Air Room Air 04/23/25 12:13 04/23/25 12:20 Temperature 98.3 F 98.3 F Temperature Source Pulse Rate 77 77 Respiratory Rate 18 18 Blood Pressure 149/62 H 149/62 H Blood Pressure Mean 91 Blood Pressure Source Blood Pressure Position Blood Pressure Location Pulse Ox 96 96 Oxygen Delivery Method Weight Weight: 302 lb 11.115 oz Body Mass Index (BMI) 41.0 Physical Exam Const oriented x3 and no apparent distress Resp normal respiratory effort Cardio regular rate and regular rhythm GI soft to palpation Palpation: tender RLQ Extremity normal to inspection Results Lab / Micro Data 04/23/25 10:00 04/23/25 10:00 Labs: Laboratory Results - last 24 hr 04/23/25 10:00: WBC 11.2 H, RBC 4.46 L, Hgb 14.0, Hct 40.7, MCV 91.3, MCH 31.4, MCHC 34.4, RDW Std Deviation 41.7, RDW Coeff of Megan 12.6, Plt Count 157, MPV 10.7, Immature Gran % (Auto) 0.500, Neut % (Auto) 76.9 H, Lymph % (Auto) 10.4 L, [place] % (Auto) 10.4 H, Eos % (Auto) 1.6, Baso % (Auto) 0.2, Absolute Neuts (auto) 8.6 H, Absolute Lymphs (auto) 1.17, Nucleated RBC % 0, Sodium 136, Potassium 4.2, Chloride 102, Carbon Dioxide 24.1, Anion Gap 10, BUN 7, Creatinine 0.82, Estim Creat Clear Calc 139.23, Est GFR (MDRD) Non-Af 101, BUN/Creatinine Ratio 8.7 L, Glucose 143 H, Calcium 9.1, Total Bilirubin 0.98, AST 20, ALT 25, Alkaline Phosphatase 52, Total Protein 7.0, Albumin 4.0, Globulin 3.0, Albumin/Globulin Ratio 1.3, Lipase 25 04/23/25 11:26: Urine Color Yellow, Urine Clarity Clear, Urine pH 7.0, Ur Specific [place] 1.005, Urine Protein 15 H, Urine Glucose (UA) Normal, Urine Ketones Negative, Urine Occult Blood Negative, Urine Nitrite Negative, Urine Bilirubin Negative, Urine Urobilinogen Normal, Ur Leukocyte Esterase Negative, Urine RBC 0-5 SEEN, Urine WBC 0-5 SEEN, Ur Squamous Epith Cells 0 SEEN, Urine Bacteria 0 SEEN, Urine Mucus RARE Imaging Radiology Impression Abdomen/Pelvis CT 04/23/25 09:57 IMPRESSION: 1. Mild fatty liver. 2. Acute, uncomplicated appendicitis. Significant amount of inflammatory changes shown in the periappendiceal fat. 3. Diverticulosis without diverticulitis. 4. Small fat containing right inguinal hernia. Reading Location: [facility] Testicular Ultrasound 04/23/25 09:57 IMPRESSION: No evidence of testicular torsion. Small bilateral epididymal cysts. Small bilateral hydroceles. Reading Location: [facility]-IR-1 Assessment & Plan Assessment/Plan (1) Acute appendicitis: QUALIFIERS: Acute appendicitis type: unspecified acute appendicitis type Qualified Code(s): K35.80 - Unspecified acute appendicitis PLAN: The patient has right lower quadrant pain and he had a CT scan which showed acute appendicitis. I recommended laparoscopic appendectomy. I discussed the procedure with the patient in detail. I discussed the risks of the procedure such as bleeding, infection, injury to other organs like the bowel, bladder, ureter. I also discussed the increased risk of bleeding as the patient is on aspirin and Plavix. I also discussed the increased risk of heart attack or stroke as the patient has had 8 heart stents in the past and has chest pain at rest. The patient was in the emergency room last month with chest pain and was told that it did not sound like acute coronary syndrome. He has not had time to follow-up with his speech therapist early intervention since that ER visit. Ace Renteria MD Pager: [facility] [address] [place] [address], [address] [place] [address] Office:
--- NOTE | 2025-04-23 12:41 | HP.PCM.SX_ITS ---
HPI - General HPI Narrative RICHARD OLIVEROS, is a 59 M who presents with lower abdominal pain. Patient reports the pain started yesterday. He denies fevers or chills. Says the pain is in the right lower quadrant does radiate down to his right testicle. [facility] Medical History Dyspnea on exertion Nicotine dependence Obesity Coronary artery disease Vitamin D deficiency Appetite loss 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] Right hand pain SOB (shortness of breath) Fatigue Heartburn Syncope and collapse Pulmonary hypertension BMI 40.0-44.9, adult EtOH dependence Elevated liver function tests Anxiety Insomnia Tobacco dependence Sleep apnea Essential hypertension Chest pain Nocturnal hypoxemia COPD (chronic obstructive pulmonary disease) Home Medications ?Medication ?Instructions ?Recorded ?Last Taken ?Type trazodone 50 mg tablet 150 mg PO QHS PRN insomnia 0 02/08/23 04/22/25 History aspirin 81 mg tablet,delayed 81 mg PO DAILY heart heal th 02/16/23 04/23/25 History release losartan 50 mg tablet 50 mg PO DAILY blood pressur e 03/24/23 04/22/25 History nitroglycerin 0.4 mg sublingual 0.4 mg sublingual Q5M PRN 04/08/23 Unknown Rx tablet Cardiac/Chest Pain #15 tabs clopidogrel 75 mg tablet 75 mg PO DAILY antiplatelet #90 05/22/24 04/23/25 Rx tabs ranolazine 500 mg tablet,extended 500 mg PO BID HEART #60 tabs 11/10/24 04/23/25 Rx release,12 hr metoprolol tartrate 50 mg tablet 50 mg PO BID heart # 180 tabs 02/26/25 04/23/25 Rx atorvastatin 10 mg tablet 10 mg PO QHS cholesterol #90 tabs 04/03/25 04/22/25 Rx magnesium 250 mg tablet 250 mg PO DAILY SUPPLEMENT 1 04/22/25 History multivitamin (Daily Multi-Vitamin 1 tab PO DAILY SUPPL EMENT 04/23/25 04/22/25 History tablet) sertraline 50 mg tablet 50 mg PO DAILY MOOD 04/23/25 04/22/25 History Allergy/AdvReac Type Severity Reaction Status Date / Time No Known Allergies Allergy Verified 04/23/25 12:41 Family History Mother Diabetes Heart disease Sister Pulmonary hypertension Father Cancer stomach Heart disease Surgical History Stented coronary artery Hx of cardiac catheterization (~02/02/24) Hx of plastic surgery Social History household members: spouse Smoking Status: Current every day smoker tobacco type: cigarettes alcohol intake: current alcohol intake frequency: 3 or more drinks per day Alcohol type: beer details: 12 beer substance use type: does not use caffeine: No ROS Constitutional Constitutional: Denies anorexia, chills, fatigue or fever(s) Eyes Eyes: Denies blurry vision ENT HEENT: Denies abnormal hearing Cardiovascular Cardiovascular: Reports chest pain Respiratory/Chest Respiratory/Chest: Reports dyspnea on exertion; Denies cough Gastrointestinal Gastrointestinal: Reports abdominal pain; Denies change in bowel habits, coffee ground emesis, nausea or vomiting Genitourinary Genitourinary: Denies change in urinary stream or difficulty urinating Musculoskeletal Musculoskeletal: Denies abnormal gait Integumentary Integumentary: Denies jaundice or new lesions Neurologic Neurologic: Denies abnormal gait Psychiatric Psychiatric: Denies anxiety Vital Signs Vital Signs Vital Signs: 04/23/25 08:49 04/23/25 11:46 04/23/25 12:11 Temperature 99.0 F Temperature Source Oral Pulse Rate 86 70 78 Respiratory Rate 18 18 18 Blood Pressure 144/72 H 163/63 H 149/62 H Blood Pressure Mean 96 96 91 Blood Pressure Source Monitor Blood Pressure Position Semi-Fowlers Blood Pressure Location Right Arm Pulse Ox 96 97 97 Oxygen Delivery Method Room Air Room Air Room Air 04/23/25 12:13 04/23/25 12:20 Temperature 98.3 F 98.3 F Temperature Source Pulse Rate 77 77 Respiratory Rate 18 18 Blood Pressure 149/62 H 149/62 H Blood Pressure Mean 91 Blood Pressure Source Blood Pressure Position Blood Pressure Location Pulse Ox 96 96 Oxygen Delivery Method Weight Weight: 302 lb 11.115 oz Body Mass Index (BMI) 41.0 Physical Exam Const oriented x3 and no apparent distress Resp normal respiratory effort Cardio regular rate and regular rhythm GI soft to palpation Palpation: tender RLQ Extremity normal to inspection Results Lab / Micro Data 04/23/25 10:00 04/23/25 10:00 Labs: Laboratory Results - last 24 hr 04/23/25 10:00: WBC 11.2 H, RBC 4.46 L, Hgb 14.0, Hct 40.7, MCV 91.3, MCH 31.4, MCHC 34.4, RDW Std Deviation 41.7, RDW Coeff of Megan 12.6, Plt Count 157, MPV 10.7, Immature Gran % (Auto) 0.500, Neut % (Auto) 76.9 H, Lymph % (Auto) 10.4 L, [place] % (Auto) 10.4 H, Eos % (Auto) 1.6, Baso % (Auto) 0.2, Absolute Neuts (auto) 8.6 H, Absolute Lymphs (auto) 1.17, Nucleated RBC % 0, Sodium 136, Potassium 4.2, Chloride 102, Carbon Dioxide 24.1, Anion Gap 10, BUN 7, Creatinine 0.82, Estim Creat Clear Calc 139.23, Est GFR (MDRD) Non-Af 101, BUN/Creatinine Ratio 8.7 L, Glucose 143 H, Calcium 9.1, Total Bilirubin 0.98, AST 20, ALT 25, Alkaline Phosphatase 52, Total Protein 7.0, Albumin 4.0, Globulin 3.0, Albumin/Globulin Ratio 1.3, Lipase 25 04/23/25 11:26: Urine Color Yellow, Urine Clarity Clear, Urine pH 7.0, Ur Specific [place] 1.005, Urine Protein 15 H, Urine Glucose (UA) Normal, Urine Ketones Negative, Urine Occult Blood Negative, Urine Nitrite Negative, Urine Bilirubin Negative, Urine Urobilinogen Normal, Ur Leukocyte Esterase Negative, Urine RBC 0-5 SEEN, Urine WBC 0-5 SEEN, Ur Squamous Epith Cells 0 SEEN, Urine Bacteria 0 SEEN, Urine Mucus RARE Imaging Radiology Impression Abdomen/Pelvis CT 04/23/25 09:57 IMPRESSION: 1. Mild fatty liver. 2. Acute, uncomplicated appendicitis. Significant amount of inflammatory changes shown in the periappendiceal fat. 3. Diverticulosis without diverticulitis. 4. Small fat containing right inguinal hernia. Reading Location: [facility] Testicular Ultrasound 04/23/25 09:57 IMPRESSION: No evidence of testicular torsion. Small bilateral epididymal cysts. Small bilateral hydroceles. Reading Location: [facility]-IR-1 Assessment & Plan Assessment/Plan (1) Acute appendicitis: QUALIFIERS: Acute appendicitis type: unspecified acute appendicitis type Qualified Code(s): K35.80 - Unspecified acute appendicitis PLAN: The patient has right lower quadrant pain and he had a CT scan which showed acute appendicitis. I recommended laparoscopic appendectomy. I discussed the procedure with the patient in detail. I discussed the risks of the procedure such as bleeding, infection, injury to other organs like the bowel, bladder, ureter. I also discussed the increased risk of bleeding as the patient is on aspirin and Plavix. I also discussed the increased risk of heart attack or stroke as the patient has had 8 heart stents in the past and has chest pain at rest. The patient was in the emergency room last month with chest pain and was told that it did not sound like acute coronary syndrome. He has not had time to follow-up with his telegraph messenger since that ER visit. Ace Renteria MD Pager: [facility] [address] [place] [address], [address] [place] [address] Office:
[2025-04-23] MEDS: Lactated Ringers 1,000 ML 15 ML IV (12:51)
[2025-04-23] MEDS: fentaNYL 100 MCG/2 ML Ampul IV (13:31)
[2025-04-23] MEDS: Bupiv/Epi 0.25% 30 ML Vial (13:38)
[2025-04-23] MEDS: Midazolam 2 MG/2 ML Syringe IV (13:54)
[2025-04-23] MEDS: Lidocaine 1% (5 ml sdv) 5 ML Vial 15 ML IV (13:54)
--- NOTE | 2025-04-23 13:54 | OP.PCM_ITS ---
Operative Report (Standard) Operative Information Date of Procedure: 04/23/25 Pre-Operative Diagnosis: Acute appendicitis Post-Operative Diagnosis: Acute perforated appendicitis Surgery/Procedure Performed: Laparoscopic appendectomy global human resources director: Yes Habitat Conservation Planner: Joseph Redd Tasks completed by welder first class: Opening & closing Type of Anesthesia: General/Regional RN Documented Start/Stop Times: Operation Date: 04/23/25 13:55 Case Time Into Pre-Op 04/23/25 12:23 Anesthesia Start 04/23/25 13:01 Into Room 04/23/25 13:01 Out of Pre-Op 04/23/25 13:01 Procedure Start 04/23/25 13:24 Procedure Start Time: 13:24 Procedure Stop Time: 14:00 Select all DRAINS/GRAFTS/IMPLANTS that apply: None Estimated Blood Loss: 5 Specimen collected: Yes Description of specimen(s) removed: Appendix Description of surgery: The patient was brought into the operating room and general anesthesia was induced. The left arm was tucked and the abdomen was prepped and draped in usual sterile fashion. A small midline incision was made superior to the umbilicus and deepened to the level of the fascia. The fascia was elevated and incised. The peritoneum was also elevated and incised. A finger sweep was performed and a balloon trocar was placed into the abdomen and inflated. The abdomen was insufflated to 15 mmHg and the camera was inserted and the abdomen was inspected for any injuries upon entering the abdomen. There were none. The patient was placed in Trendelenburg position and a 5 mm ports placed in the left lower quadrant and suprapubic areas under direct visualization. Next using atraumatic bowel graspers the appendix was identified. The appendix was perforated at its midsection. There was stool oozing from it. The appendix was grasped and elevated and Enseal was used to take down the mesoappendix. A stapler was used to come across the base of the appendix. The appendix was then placed in Endo Catch bag and removed through the umbilical incision. The staple line was inspected and found to be hemostatic and intact. The 2 5 mm ports are removed under direct visualization. The balloon trocar was deflated and removed and all the air was removed from the abdomen. The umbilical incision fascia was closed with an 0 Vicryl [id number] suture. The incisions were then irrigated with saline and dried. Local anesthetic was injected into the incision sites. The skin incisions were then closed with interrupted 4-0 Monocryl suture and Steri-Strips. Bandages were applied and the patient was awoken and taken to PACU in stable condition. Patient tolerated the procedure well. Surgical Findings: Perforated appendicitis Complications Complications: No Admit VTE Documentation VTE Mechan Device Prophylaxis: SCD's
--- NOTE | 2025-04-23 13:54 | OP.PCM_ITS ---
Operative Report (Standard) Operative Information Date of Procedure: 04/23/25 Pre-Operative Diagnosis: Acute appendicitis Post-Operative Diagnosis: Acute perforated appendicitis Surgery/Procedure Performed: Laparoscopic appendectomy principal embedded software engineer: Yes Meeting Planner: Joseph Redd Tasks completed by senior it assistant: Opening & closing Type of Anesthesia: General/Regional RN Documented Start/Stop Times: Operation Date: 04/23/25 13:55 Case Time Into Pre-Op 04/23/25 12:23 Anesthesia Start 04/23/25 13:01 Into Room 04/23/25 13:01 Out of Pre-Op 04/23/25 13:01 Procedure Start 04/23/25 13:24 Procedure Start Time: 13:24 Procedure Stop Time: 14:00 Select all DRAINS/GRAFTS/IMPLANTS that apply: None Estimated Blood Loss: 5 Specimen collected: Yes Description of specimen(s) removed: Appendix Description of surgery: The patient was brought into the operating room and general anesthesia was induced. The left arm was tucked and the abdomen was prepped and draped in usual sterile fashion. A small midline incision was made superior to the umbilicus and deepened to the level of the fascia. The fascia was elevated and incised. The peritoneum was also elevated and incised. A finger sweep was performed and a balloon trocar was placed into the abdomen and inflated. The abdomen was insufflated to 15 mmHg and the camera was inserted and the abdomen was inspected for any injuries upon entering the abdomen. There were none. The patient was placed in Trendelenburg position and a 5 mm ports placed in the left lower quadrant and suprapubic areas under direct visualization. Next using atraumatic bowel graspers the appendix was identified. The appendix was perforated at its midsection. There was stool oozing from it. The appendix was grasped and elevated and Enseal was used to take down the mesoappendix. A stapler was used to come across the base of the appendix. The appendix was then placed in Endo Catch bag and removed through the umbilical incision. The staple line was inspected and found to be hemostatic and intact. The 2 5 mm ports are removed under direct visualization. The balloon trocar was deflated and removed and all the air was removed from the abdomen. The umbilical incision fascia was closed with an 0 Vicryl [id number] suture. The incisions were then irrigated with saline and dried. Local anesthetic was injected into the incision sites. The skin incisions were then closed with interrupted 4-0 Monocryl suture and Steri-Strips. Bandages were applied and the patient was awoken and taken to PACU in stable condition. Patient tolerated the procedure well. Surgical Findings: Perforated appendicitis Complications Complications: No Admit VTE Documentation VTE Mechan Device Prophylaxis: SCD's
--- NOTE | 2025-04-23 13:55 | APP_PTH ---
PATIENT: RICHARD OLIVEROS LOC: MS3 U#:[id number] AGE/SX: 60/M [place] [facility] [place]: Dr. Ace Renteria MD : 1965 BED: 1 DIS: 04/24/2025 SPEC #: [id number] RECD: 04/23/25 14:19 STATUS: NEGAR RERolando #: [id number] GRETEL: 04/23/25 13:[address]: Ace Renteria DEPT: SURGICAL PATHOLOGY RECD BY: Karthik Gutierres ENTERED: 04/23/25 15:45 SP TYPE: APPENDIX OTHR DR: Dr. Shaniqua Harrington, DO Tissues: A - Appendix, NOS Procedures: Surgery Specimen Level III HEADER OPERATION: Laparoscopic appendectomy PRE-OP DIAGNOSIS: Acute appendicitis TISSUE SUBMITTED: A- Appendix MICROSCOPIC DIAGNOSIS A. Appendix, laparoscopic appendectomy: * Acute appendicitis with perforation, fecalith. * Acute serositis. MICROSCOPIC DESCRIPTION Slides are reviewed. GROSS DESCRIPTION A. Received in formalin labeled with the patient's name and date of . Designated as appendix is a 6.2 x 1.4 cm pink-red, shaggy appendix that is transected in the middle but held together by the copious amounts of attached mesoappendix. There is patchy fibrinous exudate, predominantly near the distal tip. The stapled margin is inked black and shaved. Sectioning reveals pink to dark red, soft and congested mucosa with a proximally located fecalith. Frit Mixer And Burner sections are submitted in 2 cassettes as follows: A1: Distal tipA2: Margin, cross-sections IN 04/23/2025 CPT:81853
--- NOTE | 2025-04-23 13:55 | APP_PTH ---
PATIENT: RICHARD OLIVEROS LOC: MS3 U#:[id number] AGE/SX: 60/M ROOM: [facility] [place] RE04/23/[address]: Dr. Ace Renteria MD : 1965 BED: 1 DIS: 04/24/2025 SPEC #: [id number] RECD: 04/23/25 14:19 STATUS: NEGAR RERolando #: [id number] GRETEL: 04/23/25 13:[address]: Ace Renteria DEPT: SURGICAL PATHOLOGY RECD BY: Karthik Gutierres ENTERED: 04/23/25 15:45 SP TYPE: APPENDIX OTHR DR: Dr. Shaniqua Harrington, DO Tissues: A - Appendix, NOS Procedures: Surgery Specimen Level III HEADER OPERATION: Laparoscopic appendectomy PRE-OP DIAGNOSIS: Acute appendicitis TISSUE SUBMITTED: A- Appendix MICROSCOPIC DIAGNOSIS A. Appendix, laparoscopic appendectomy: * Acute appendicitis with perforation, fecalith. * Acute serositis. MICROSCOPIC DESCRIPTION Slides are reviewed. GROSS DESCRIPTION A. Received in formalin labeled with the patient's name and date of . Designated as appendix is a 6.2 x 1.4 cm pink-red, shaggy appendix that is transected in the middle but held together by the copious amounts of attached mesoappendix. There is patchy fibrinous exudate, predominantly near the distal tip. The stapled margin is inked black and shaved. Sectioning reveals pink to dark red, soft and congested mucosa with a proximally located fecalith. Fountain Roller Assembler sections are submitted in 2 cassettes as follows: A1: Distal tipA2: Margin, cross-sections [place] 04/23/2025 CPT:24918
--- NOTE | 2025-04-23 14:16 | PCM.POST.ANE ---
Anesthesia: Postop Eval I Current Vital Signs Temperature: 97 F Pulse Rate: 101 Blood Pressure: 159/109 Respiratory Rate: 20 Pulse Ox: 97 Oxygen Delivery Method: Nasal Cannula Oxygen Flow Rate (L/min): 8 Assessment Airway patent: Yes Spontaneous unlabored respirations: Yes Mental status: Awake nausea: No Vomiting: No Anesthesia Complication: No Fluid Hydration Crystalloid volume administer (ml): 700 Total IV fluid infused: 700 Progress Note Anesthesia document: Postop Eval 1 completed: Yes
--- NOTE | 2025-04-23 14:22 | POSTOPAN2_ITS ---
Anesthesia Postop Eval I Sum Postop Eval Completion status Anesthesia document: Postop Eval 1 completed: Yes Anesthesia Postop Eval I Summary Anesthesia Postop Eval I Summary: Anesthesia Postop Eval I: Assessment Summary Airway patent Yes 04/23/25 14:18 UPHOLSTERY [email or web address] Spontaneous unlabored Yes 04/23/25 14:18 UPHOLSTERY CUTTER.[email or web address] respirations Mental status Awake 04/23/25 14:18 UPHOLSTERY CUTTER.JDEF nausea No 04/23/25 14:18 UPHOLSTERY CUTTER.JDEF Vomiting No 04/23/25 14:18 UPHOLSTERY CUTTER.JDEF Anesthesia Postop Eval I: Fluid Summary Crystalloid volume administer 700 04/23/25 14:18 UPHOLSTERY CUTTER.JDEF (ml) Colloids volume administered ( ml) Blood Product volume administered (ml) Total IV fluid infused 700 04/23/25 14:18 UPHOLSTERY CUTTER.JDEF Anesthesia Postop Eval I: Summary Notes Anesthesia Complication No 04/23/25 14:18 UPHOLSTERY CUTTER.JDEF Anesthesia Complication Comment: Post-operative progress note Anesthesia: Postop Eval II Evaluation Mental status: Awake Pain Level: 2 nausea: No Vomiting: No
--- NOTE | 2025-04-23 14:22 | POSTOPAN2_ITS ---
Anesthesia Postop Eval I Sum Postop Eval Completion status Anesthesia document: Postop Eval 1 completed: Yes Anesthesia Postop Eval I Summary Anesthesia Postop Eval I Summary: Anesthesia Postop Eval I: Assessment Summary Airway patent Yes 04/23/25 14:18 SEMICONDUCTOR PACKAGES LEAK TESTER.[email or web address] Spontaneous unlabored Yes 04/23/25 14:18 SEMICONDUCTOR PACKAGES LEAK TESTER.JDEF respirations Mental status Awake 04/23/25 14:18 SEMICONDUCTOR PACKAGES LEAK TESTER.JDEF nausea No 04/23/25 14:18 SEMICONDUCTOR PACKAGES LEAK TESTER.JDEF Vomiting No 04/23/25 14:18 SEMICONDUCTOR PACKAGES LEAK TESTER.JDEF Anesthesia Postop Eval I: Fluid Summary Crystalloid volume administer 700 04/23/25 14:18 SEMICONDUCTOR PACKAGES LEAK TESTER.JDEF (ml) Colloids volume administered ( ml) Blood Product volume administered (ml) Total IV fluid infused 700 04/23/25 14:18 SEMICONDUCTOR PACKAGES LEAK TESTER.JDEF Anesthesia Postop Eval I: Summary Notes Anesthesia Complication No 04/23/25 14:18 SEMICONDUCTOR PACKAGES LEAK TESTER.JDEF Anesthesia Complication Comment: Post-operative progress note Anesthesia: Postop Eval II Evaluation Mental status: Awake Pain Level: 2 nausea: No Vomiting: No
--- NOTE | 2025-04-23 14:22 | PCM.POSTANE2 ---
Anesthesia Postop Eval I Sum Postop Eval Completion status Anesthesia document: Postop Eval 1 completed: Yes Anesthesia Postop Eval I Summary Anesthesia Postop Eval I Summary: Anesthesia Postop Eval I: Assessment Summary Airway patent Yes 04/23/25 14:18 SHOE REPAIRER APPRENTICE.[email or web address] Spontaneous unlabored Yes 04/23/25 14:18 SHOE REPAIRER APPRENTICE.JDEF respirations Mental status Awake 04/23/25 14:18 SHOE REPAIRER APPRENTICE.JDEF nausea No 04/23/25 14:18 SHOE REPAIRER APPRENTICE.JDEF Vomiting No 04/23/25 14:18 SHOE REPAIRER APPRENTICE.JDEF Anesthesia Postop Eval I: Fluid Summary Crystalloid volume administer 700 04/23/25 14:18 SHOE REPAIRER APPRENTICE.JDEF (ml) Colloids volume administered ( ml) Blood Product volume administered (ml) Total IV fluid infused 700 04/23/25 14:18 SHOE REPAIRER APPRENTICE.JDEF Anesthesia Postop Eval I: Summary Notes Anesthesia Complication No 04/23/25 14:18 SHOE REPAIRER APPRENTICE.JDEF Anesthesia Complication Comment: Post-operative progress note Anesthesia: Postop Eval II Evaluation Mental status: Awake Pain Level: 2 nausea: No Vomiting: No
--- NOTE | 2025-04-23 14:22 | PCM.POSTANE2 ---
Anesthesia Postop Eval I Sum Postop Eval Completion status Anesthesia document: Postop Eval 1 completed: Yes Anesthesia Postop Eval I Summary Anesthesia Postop Eval I Summary: Anesthesia Postop Eval I: Assessment Summary Airway patent Yes 04/23/25 14:18 AIRPLANE FLIGHT ATTENDANT SUPERVISOR.[email or web address] Spontaneous unlabored Yes 04/23/25 14:18 AIRPLANE FLIGHT ATTENDANT SUPERVISOR.JDEF respirations Mental status Awake 04/23/25 14:18 AIRPLANE FLIGHT ATTENDANT SUPERVISOR.JDEF nausea No 04/23/25 14:18 AIRPLANE FLIGHT ATTENDANT SUPERVISOR.JDEF Vomiting No 04/23/25 14:18 AIRPLANE FLIGHT ATTENDANT SUPERVISOR.JDEF Anesthesia Postop Eval I: Fluid Summary Crystalloid volume administer 700 04/23/25 14:18 AIRPLANE FLIGHT ATTENDANT SUPERVISOR.JDEF (ml) Colloids volume administered ( ml) Blood Product volume administered (ml) Total IV fluid infused 700 04/23/25 14:18 AIRPLANE FLIGHT ATTENDANT SUPERVISOR.JDEF Anesthesia Postop Eval I: Summary Notes Anesthesia Complication No 04/23/25 14:18 AIRPLANE FLIGHT ATTENDANT SUPERVISOR.JDEF Anesthesia Complication Comment: Post-operative progress note Anesthesia: Postop Eval II Evaluation Mental status: Awake Pain Level: 2 nausea: No Vomiting: No
--- NOTE | 2025-04-23 14:39 | SUR.PHASEI ---
PT STATES HE WOULD LIKE TO GO HOME TODAY AND NOT SPEND THE NIGHT. DR COLIN AT BEDSIDE EXPLAINED TO PATIENT THAT HIS APPENDIX WAS PERFORATED AND HE NEEDS ANTIBIOTICS. PATIENT AGREEABLE TO STAYING TONIGHT IF HE CAN BE RELEASED IN THE MORNING. DR COLIN TOLD PATIENT HE CAN NOT GUARANTEE THAT. PATIENT AGREEABLE TO BEING ADMITTED AT THIS TIME.
[2025-04-23] MEDS: 0.9% Normal Saline (1000mL) 1,000 ML 100 ML IV (16:03)
[2025-04-24] MEDS: 0.9% Normal Saline (1000mL) 1,000 ML 100 ML IV (02:55)
[2025-04-24 03:04] VITALS: PULSE 76
[2025-04-24 03:45] VITALS: BP 114/68; PULSE 89; RESP 18; TEMP 36.6; O2SAT 96
[2025-04-24] MEDS: Piperacil/Tazobactam 3.375 GM in 0.9% Normal Saline (50mL MB+) 50 ML IV (05:22)
[2025-04-24 06:04] LABS: Hematocrit 38.9 % (40-54); Hemoglobin 12.5 g/dL (13.0-16.5); Immature Granulocytes Count 0.090 X10^3/uL (0.0-0.0); Mean Corp Hgb Conc 32.1 g/dL (32-36); Mean Corpuscular Volume 95.3 fL (80-94); Mean Platelet Vol. 11.0 fl (6.2-12.0); NRBC Flagged by Analyzer 0 % (0-5); Platelet Count 142 K/mm3 (150-450); RBC Distribution Width CV 12.9 % (11.6-14.6); RBC Distribution Width SD 45.3 fl (35.1-43.9); Red Blood Count 4.08 M/mm3 (4.6-6.2); White Blood Count 11.8 K/mm3 (4.4-11.0)
[2025-04-24 06:21] LABS: Anion Gap 9 (5-15); BUN 10 mg/dL (4-19); BUN/Creat Ratio 10.9 RATIO (10-20); Calcium,Total 8.5 mg/dL (7.6-11.0); Carbon Dioxide 23.3 mmol/L (21.0-32.0); Chloride 103 mmol/L (98-108); Estimated Creatinine Clearance 127.89 ml/min (50-250); Glucose 114 mg/dL (70-99); Potassium 4.4 mmol/L (3.3-5.1)
--- NOTE | 2025-04-24 07:16 | PCM.PN.SRG ---
Subjective Subjective Patient reports he is doing well. He reports his abdominal pain is much improved since yesterday. He denies nausea or vomiting. Objective Data Objective Data Vital Signs: Vital Signs Temp Pulse Resp BP Pulse Ox O2 Del Method O2 Flow Rate 98 F 89 18 114/68 96 Nasal Cannula 3 04/24/25 03:45 04/24/25 03:45 04/24/25 03:45 04/24/25 03:45 04/24/25 03:45 04/24/25 03:45 04/24/25 03:45 Oxygen Flow Rate (L/min) 3 Oxygen Delivery Method Nasal Cannula Weight: 308 lb Body Mass Index (BMI) 41.8 Intake & Output: Intake and Output for Last 24 Hours 04/22/25 04/23/25 04/24/25 23:59 23:59 23:59 Intake Total 2093 / 2093 1050 / 1050 Output Total 250 / 250 Balance 2088 / 2088 800 / 800 Lab / Micro Data 04/24/25 05:37 04/24/25 05:37 Labs: Laboratory Results - last 24 hr 04/23/25 10:00: WBC 11.2 H, RBC 4.46 L, Hgb 14.0, Hct 40.7, MCV 91.3, MCH 31.4, MCHC 34.4, RDW Std Deviation 41.7, RDW Coeff of Megan 12.6, Plt Count 157, MPV 10.7, Immature Gran % (Auto) 0.500, Neut % (Auto) 76.9 H, Lymph % (Auto) 10.4 L, [place] % (Auto) 10.4 H, Eos % (Auto) 1.6, Baso % (Auto) 0.2, Absolute Neuts (auto) 8.6 H, Absolute Lymphs (auto) 1.17, Nucleated RBC % 0, Sodium 136, Potassium 4.2, Chloride 102, Carbon Dioxide 24.1, Anion Gap 10, BUN 7, Creatinine 0.82, Estim Creat Clear Calc 139.23, Est GFR (MDRD) Non-Af 101, BUN/Creatinine Ratio 8.7 L, Glucose 143 H, Calcium 9.1, Total Bilirubin 0.98, AST 20, ALT 25, Alkaline Phosphatase 52, Total Protein 7.0, Albumin 4.0, Globulin 3.0, Albumin/Globulin Ratio 1.3, Lipase 25 04/23/25 11:26: Urine Color Yellow, Urine Clarity Clear, Urine pH 7.0, Ur Specific [place] 1.005, Urine Protein 15 H, Urine Glucose (UA) Normal, Urine Ketones Negative, Urine Occult Blood Negative, Urine Nitrite Negative, Urine Bilirubin Negative, Urine Urobilinogen Normal, Ur Leukocyte Esterase Negative, Urine RBC 0-5 SEEN, Urine WBC 0-5 SEEN, Ur Squamous Epith Cells 0 SEEN, Urine Bacteria 0 SEEN, Urine Mucus RARE 04/24/25 05:37: WBC 11.8 H, RBC 4.08 L, Hgb 12.5 L, Hct 38.9 L, MCV 95.3 H, MCH 30.6, MCHC 32.1 D, RDW Std Deviation 45.3 H, RDW Coeff of Megan 12.9, Plt Count 142 L, MPV 11.0, Immature Gran % (Auto) 0.800, Neut % (Auto) 79.4 H, Lymph % (Auto) 9.3 L, [place] % (Auto) 10.1 H, Eos % (Auto) 0.2, Baso % (Auto) 0.2, Absolute Neuts (auto) 9.4 H, Absolute Lymphs (auto) 1.10, Nucleated RBC % 0, Sodium 136, Potassium 4.4, Chloride 103, Carbon Dioxide 23.3, Anion Gap 9, BUN 10, Creatinine 0.89, Estim Creat Clear Calc 127.89, Est GFR (MDRD) Non-Af 98, BUN/Creatinine Ratio 10.9, Glucose 114 H, Calcium 8.5 Radiography Diagnostic Testing: Radiology Impression Abdomen/Pelvis CT 04/23/25 09:57 IMPRESSION: 1. Mild fatty liver. 2. Acute, uncomplicated appendicitis. Significant amount of inflammatory changes shown in the periappendiceal fat. 3. Diverticulosis without diverticulitis. 4. Small fat containing right inguinal hernia. Reading Location: [id number] Testicular Ultrasound 04/23/25 09:57 IMPRESSION: No evidence of testicular torsion. Small bilateral epididymal cysts. Small bilateral hydroceles. Reading Location: [facility] Physical Exam Const oriented x3 and no apparent distress Resp normal respiratory effort GI soft to palpation and non-tender Assessment & Plan Assessment/Plan (1) Acute appendicitis: QUALIFIERS: Acute appendicitis type: unspecified acute appendicitis type Qualified Code(s): K35.80 - Unspecified acute appendicitis PLAN: Patient is doing well following laparoscopic appendectomy. Once he tolerates a diet today and gets weaned from his oxygen I will discharge him home
--- NOTE | 2025-04-24 07:17 | DS.PCM_ITS ---
Providers Date of Admission: 04/23/25 Primary Care Physician: Dr. Shaniqua Harrington DO Reason For Visit: APPENDECTOMY Diagnosis Discharge Diagnosis (1) Acute appendicitis: Status: Acute Code(s): K35.80 - Unspecified acute appendicitis Qualifiers: Acute appendicitis type: unspecified acute appendicitis type Qualified Code(s): K35.80 - Unspecified acute appendicitis Plan: Patient is doing well following laparoscopic appendectomy. Once he tolerates a diet today and gets weaned from his oxygen I will discharge him home Medications at Discharge Home Medications trazodone 50 mg tablet 150 mg PO QHS PRN insomnia 02/08/23 aspirin 81 mg tablet,delayed release 81 mg PO DAILY heart health 02/16/23 losartan 50 mg tablet 50 mg PO DAILY blood pressure 03/24/23 nitroglycerin 0.4 mg sublingual tablet 0.4 mg sublingual Q5M PRN Cardiac/Chest Pain #15 tabs 04/08/23 clopidogrel 75 mg tablet 75 mg PO DAILY antiplatelet #90 tabs 05/22/24 ranolazine 500 mg tablet,extended release,12 hr 500 mg PO BID HEART #60 tabs 11/10/24 metoprolol tartrate 50 mg tablet 50 mg PO BID heart #180 tabs 02/26/25 atorvastatin 10 mg tablet 10 mg PO QHS cholesterol #90 tabs 04/03/25 magnesium 250 mg tablet 250 mg PO DAILY SUPPLEMENT 04/23/25 multivitamin (Daily Multi-Vitamin tablet) 1 tab PO DAILY SUPPLEMENT 04/23/25 sertraline 50 mg tablet 50 mg PO DAILY MOOD 04/23/25 acetaminophen 325 mg tablet 650 mg (2 x 325 mg) PO Q4H PRN PRN Pain 1-10 Or Fever #0 tabs 04/24/25 oxycodone 5 mg tablet 5 - 10 mg (1 - 2 x 5 mg) PO Q4H PRN PRN Pain Score 4-10 5 days #14 tabs 04/24/25 Hospital Course Operations appendectomy Summary of Care Provided Hospital Course: Patient presented with right lower quadrant pain and was diagnosed with acute appendicitis on CT scan. He was immediately taken for surgery and had laparoscopic appendectomy. Following surgery he was tolerate diet and would really like to go home and I discharged him home this morning after tolerating a diet Weight / BMI Weight Weight: 308 lb Body Mass Index (BMI) 41.8 ABG / Lab / Microbiology Data 04/24/25 05:37 04/24/25 05:37 Laboratory: Laboratory Results - last 24 hr 04/23/25 10:00: WBC 11.2 H, RBC 4.46 L, Hgb 14.0, Hct 40.7, MCV 91.3, MCH 31.4, MCHC 34.4, RDW Std Deviation 41.7, RDW Coeff of Megan 12.6, Plt Count 157, MPV 10.7, Immature Gran % (Auto) 0.500, Neut % (Auto) 76.9 H, Lymph % (Auto) 10.4 L, [place] % (Auto) 10.4 H, Eos % (Auto) 1.6, Baso % (Auto) 0.2, Absolute Neuts (auto) 8.6 H, Absolute Lymphs (auto) 1.17, Nucleated RBC % 0, Sodium 136, Potassium 4.2, Chloride 102, Carbon Dioxide 24.1, Anion Gap 10, BUN 7, Creatinine 0.82, Estim Creat Clear Calc 139.23, Est GFR (MDRD) Non-Af 101, BUN/Creatinine Ratio 8.7 L, Glucose 143 H, Calcium 9.1, Total Bilirubin 0.98, AST 20, ALT 25, Alkaline Phosphatase 52, Total Protein 7.0, Albumin 4.0, Globulin 3.0, Albumin/Globulin Ratio 1.3, Lipase 25 04/23/25 11:26: Urine Color Yellow, Urine Clarity Clear, Urine pH 7.0, Ur Specific [place] 1.005, Urine Protein 15 H, Urine Glucose (UA) Normal, Urine Ketones Negative, Urine Occult Blood Negative, Urine Nitrite Negative, Urine Bilirubin Negative, Urine Urobilinogen Normal, Ur Leukocyte Esterase Negative, Urine RBC 0-5 SEEN, Urine WBC 0-5 SEEN, Ur Squamous Epith Cells 0 SEEN, Urine Bacteria 0 SEEN, Urine Mucus RARE 04/24/25 05:37: WBC 11.8 H, RBC 4.08 L, Hgb 12.5 L, Hct 38.9 L, MCV 95.3 H, MCH 30.6, MCHC 32.1 D, RDW Std Deviation 45.3 H, RDW Coeff of Megan 12.9, Plt Count 142 L, MPV 11.0, Immature Gran % (Auto) 0.800, Neut % (Auto) 79.4 H, Lymph % (Auto) 9.3 L, [place] % (Auto) 10.1 H, Eos % (Auto) 0.2, Baso % (Auto) 0.2, A bsolute Neuts (auto) 9.4 H, Absolute Lymphs (auto) 1.10, Nucleated RBC % 0, Sodium 136, Potassium 4.4, Chloride 103, Carbon Dioxide 23.3, Anion Gap 9, BUN 10, Creatinine 0.89, Estim Creat Clear Calc 127.89, Est GFR (MDRD) Non-Af 98, BUN/Creatinine Ratio 10.9, Glucose 114 H, Calcium 8.5 Radiography Diagnostic Testing: Radiology Impression Abdomen/Pelvis CT 04/23/25 09:57 IMPRESSION: 1. Mild fatty liver. 2. Acute, uncomplicated appendicitis. Significant amount of inflammatory changes shown in the periappendiceal fat. 3. Diverticulosis without diverticulitis. 4. Small fat containing right inguinal hernia. Reading Location: [facility] Testicular Ultrasound 04/23/25 09:57 IMPRESSION: No evidence of testicular torsion. Small bilateral epididymal cysts. Small bilateral hydroceles. Reading Location: [facility] D/C Instructions Discharge Activity: May Not Drive (for 2-3 days or while taking narcotic pain medications) May shower in (days): 1 Lifting Restrictions: 15 lbs for 2 weeks Additional Activity Instructions: Alternate ibuprofen and Tylenol for pain control, oxycodone for breakthrough pain Call your doctor if your incision/area has: Continuous Slow Oozing, Sudden Increased Bleeding, Increased Pain/ Swelling, Increased Redness and Foul Smelling Discharge Call your doctor if you observe: Fever of 101 or Higher Suture Line Care: Avoid Pulling/Pushing and Avoid Pinching/Bending Remove Dressing in: 2 days Cleanse incision/area with: Soap & Water DC O2, CPAP, BIPAP Needs Home O2 Discharge instructions: No Additional Instructions: Keep dressing clean and dry. Change or remove dressing in 2 days. Leave steri strips for 1 week. May protect with a gauze bandaid. Please Follow Up With: Ace Renteria MD When: Please call to schedule 2 week follow up appointment at [phone] Meaningful Use Info Meaningful Use Meaningful Use Diagnoses (Choose all that apply): None applicable Discharge Plan Admission Admit Date/Time: 04/23/25 13:55 Attending Provider: Ace Renteria Primary Care Provider: Shaniqua Harrington Discharge Orders/Prescriptions Prescriptions: New acetaminophen 325 mg Tablet 650 mg PO Q4H PRN PRN (Reason: Pain 1-10 Or Fever) Qty: 0 0RF oxycodone 5 mg Tablet 5 - 10 mg PO Q4H PRN PRN (Reason: Pain Score 4-10) 5 Days Qty: 14 0RF Continued trazodone 50 mg tablet 150 mg PO QHS PRN (Reason: insomnia) Patient Comments: take 3 tablet by mouth at bedtime if needed for sleep / insomnia aspirin 81 mg tablet,delayed release (DR/EC) 81 mg PO DAILY losartan 50 mg tablet 50 mg PO DAILY ranolazine 500 mg tablet extended release 12 hr 500 mg PO BID Qty: 60 11RF Patient Comments: PT STATES TAKES 1 TAB QAM nitroglycerin 0.4 mg Tablet, Sublingual 0.4 mg sublingual Q5M PRN (Reason: Cardiac/Chest Pain) Qty: 15 3RF sertraline 50 mg tablet 50 mg PO DAILY multivitamin [Daily Multi-Vitamin] Tablet 1 tab PO DAILY magnesium 250 mg tablet 250 mg PO DAILY clopidogrel 75 mg tablet 75 mg PO DAILY Qty: 90 3RF metoprolol tartrate 50 mg tablet 50 mg PO BID Qty: 180 2RF atorvastatin 10 mg tablet 10 mg PO QHS Qty: 90 3RF Referrals / Follow Up: Sasha Jimenez [employer] [Med Staff - [facility] Practice Prof, Internal Medicine] Disposition Disposition (needs filled in before D/C Order can be placed): Home, Self Care
[2025-04-24] MEDS: Aspirin E.C. 81 MG Tablet PO (07:58)
[2025-04-24 07:59] VITALS: PULSE 84
[2025-04-24] MEDS: Magnesium Chloride 64 MG Delay Rel.Tablet PO (07:59)
[2025-04-24 10:42] VITALS: BP 130/59; PULSE 84; RESP 18; TEMP 36.3; O2SAT 97
== END 2025-04-24 11:08 | disposition home or self-care (01) ==
LOC: ED 12:05 → SDC 12:13 → ACINP 12:14 → SDC 14:26 → MS3 14:26
PROVIDERS: Admitting Provider Surgery; Emergency Provider Surgery; PCP Internal Medicine; Visit Provider Surgery
PROC: 0DTJ4ZZ Resection of Appendix, Percutaneous Endoscopic Approach (ICD-10-PCS; CPT 44970; principal; 2025-04-23 13:35)
DX: K35.32 Acute appendicitis with perforation, localized peritonitis, and gangrene, without abscess (principal); J44.9 Chronic obstructive pulmonary disease, unspecified; K76.0 Fatty (change of) liver, not elsewhere classified; Z79.02 Long term (current) use of antithrombotics/antiplatelets; K40.90 Unilateral inguinal hernia, without obstruction or gangrene, not specified as recurrent; N43.3 Hydrocele, unspecified; K57.90 Diverticulosis of intestine, part unspecified, without perforation or abscess without bleeding; F17.210 Nicotine dependence, cigarettes, uncomplicated; I25.10 Atherosclerotic heart disease of native coronary artery without angina pectoris; N50.3 Cyst of epididymis; I10 Essential (primary) hypertension; E78.5 Hyperlipidemia, unspecified; Z95.5 Presence of coronary angioplasty implant and graft; Z79.899 Other long term (current) drug therapy; Z79.82 Long term (current) use of aspirin; N50.811 Right testicular pain
CPT/HCPCS: 44970; 00840; 36415; 74177; 76870; 80048; 80053; 81001; 83690; 85025; 88304; 93005; 93976; 94668; 96361; 96365; 96366; 96375; 99221; 99284; Q9967; A4216; G0378; J2405

== ENCOUNTER 2025-05-21 17:46 | Emergency (ER) | payer MEDICARE, SELFPAY ==
[2025-05-21 17:47] VITALS: BP 131/73; PULSE 75; RESP 18; TEMP 36.1; O2SAT 99; BMI 41.7
--- NOTE | 2025-05-21 18:32 | CT_ITS ---
PROCEDURE: ABDOMEN/PELVIS W IV CONT ONLY 05/21/2025 REASON FOR EXAM: ABDOMINAL PAIN AND DISTENTION TECHNIQUE: Procedure Code: [id number] Modality: CT Procedure: ABDOMEN/PELVIS W IV CONT ONLY Coronal and Sagittal reconstruction series were provided. CONTRAST: Isovue 370 VOLUME: 100 mL One or more dose reduction techniques were used (e.g., Automated exposure control, adjustment of the mA and/or kV according to patient size, use of iterative reconstruction technique. RADIATION DOSE SUMMARY: CTDlvol: 37 mGy DLP: 1415 mGycm COMPARISON: 04/23/2025 FINDINGS: Normal lumbar vertebral body height and alignment. No subluxation. No compression deformity. The lung bases are free of mass or consolidation. Normal appearance of the liver, gallbladder, portal vein, spleen, adrenal glands, and pancreas. No renal mass or hydronephrosis. Normal caliber abdominal aorta. No free air or free fluid. Negative for bowel obstruction, diverticulitis or abscess. The appendix contains an appendicolith but does not appear to be distended or inflamed. CT/Abdomen/Pelvis W IV Cont ONLY IMPRESSION: No acute abnormality is identified. The clinical history states appendectomy. On the current scan, the appendix is still present although the appendicitis seen previously is no longer present Reading [facility]
[2025-05-21 18:38] LABS: AST(SGOT) 26 U/L (<=37); Alanine Aminotransfer ALT/SGPT 36 U/L (<=46); Albumin, Serum 4.1 g/dL (3.4-4.8); Alkaline Phosphatase 52 U/L (40-129); Anion Gap 12 (5-15); BUN 7 mg/dL (4-19); BUN/Creat Ratio 10.7 RATIO (10-20); Calcium,Total 9.3 mg/dL (7.6-11.0); Carbon Dioxide 22.1 mmol/L (21.0-32.0); Chloride 96 mmol/L (98-108); Estimated Creatinine Clearance 164.85 ml/min (50-250); Globulin 2.7 g/dL (2.2-4.2); Glucose 90 mg/dL (70-99); Lipase 42 U/L (13-75); Potassium 3.8 mmol/L (3.3-5.1)
[2025-05-21 19:06] LABS: Hematocrit 40.7 % (40-54); Hemoglobin 13.9 g/dL (13.0-16.5); Immature Granulocytes Count 0.080 X10^3/uL (0.0-0.0); Mean Corp Hgb Conc 34.2 g/dL (32-36); Mean Corpuscular Volume 90.2 fL (80-94); Mean Platelet Vol. 11.3 fl (6.2-12.0); NRBC Flagged by Analyzer 0 % (0-5); Platelet Count 151 K/mm3 (150-450); RBC Distribution Width CV 12.6 % (11.6-14.6); RBC Distribution Width SD 41.9 fl (35.1-43.9); Red Blood Count 4.51 M/mm3 (4.6-6.2); White Blood Count 8.3 K/mm3 (4.4-11.0)
[2025-05-21 19:46] VITALS: BP 130/64; PULSE 74; RESP 18; O2SAT 97
[2025-05-21 21:00] VITALS: BP 123/54; PULSE 63; RESP 18; O2SAT 96
[2025-05-21] MEDS: Magnesium Citrate 300 ML PO (22:02)
[2025-05-21 22:05] VITALS: BP 123/61; PULSE 77; RESP 18; TEMP 36.4; O2SAT 97
--- NOTE | 2025-05-22 00:09 | EDS_ITS ---
HPI HPI - GI History of Present Illness Chief Complaint: Abd Pain Informant: parent and spouse/S.O. Narrative Narrative: 60-year-old male presenting to the emergency room with abdominal bloating/distention excessive gas and small bowel movements. Patient states 3 weeks ago he had a appendectomy. He states his bowel movements did not return to normal. He states he has been eating and eating the same foods as his does not have any symptoms. States his pants are fitting tighter. He notes his parents had complications with bowel obstructions and "rupture". He denies any fever. No urinary symptoms. No diarrhea. 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] Right hand pain SOB (shortness of breath) Fatigue Heartburn Syncope and collapse Pulmonary hypertension BMI 40.0-44.9, adult EtOH dependence Elevated liver function tests Anxiety Insomnia Tobacco dependence Sleep apnea Essential hypertension Chest pain Nocturnal hypoxemia COPD (chronic obstructive pulmonary disease) Home Medications Medication Instructions Recorded Last Taken Type trazodone 50 mg tablet 150 mg PO QHS PRN insomnia 0 02/08/23 05/20/25 History aspirin 81 mg tablet,delayed 81 mg PO DAILY heart heal th 02/16/23 05/21/25 History release losartan 50 mg tablet 50 mg PO DAILY blood pressur e 03/24/23 05/20/25 History nitroglycerin 0.4 mg sublingual 0.4 mg sublingual Q5M PRN 04/08/23 Unknown Rx tablet Cardiac/Chest Pain #15 tabs clopidogrel 75 mg tablet 75 mg PO DAILY antiplatelet #90 05/22/24 05/21/25 Rx tabs metoprolol tartrate 50 mg tablet 50 mg PO BID heart # 180 tabs 02/26/25 05/21/25 Rx atorvastatin 10 mg tablet 10 mg PO QHS cholesterol #90 tabs 04/03/25 05/20/25 Rx magnesium 250 mg tablet 250 mg PO DAILY SUPPLEMENT 1 05/21/25 History multivitamin (Daily Multi-Vitamin 1 tab PO DAILY SUPPL EMENT 04/23/25 05/21/25 History tablet) sertraline 50 mg tablet 50 mg PO DAILY MOOD 04/23/25 05/20/25 History Allergy/AdvReac Type Severity Reaction Status Date / Time No Known Allergies Allergy Verified 05/21/25 17:46 Family History Mother Diabetes Heart disease Sister Pulmonary hypertension Father Cancer stomach Heart disease Surgical History History of laparoscopic appendectomy Stented coronary artery Hx of cardiac catheterization (~02/02/24) Hx of plastic surgery Social History household members: spouse Smoking Status: Current every day smoker tobacco type: cigarettes alcohol intake: current alcohol intake frequency: 3 or more drinks per day Alcohol type: beer details: 12 beer substance use type: does not use caffeine: No ROS ROS ED Constitutional Constitutional ED: Denies chills, fever(s) or weight loss Eyes Eyes: Denies change in vision or diplopia ENT ENT ED: Denies ear pain, rhinorrhea or sore throat Cardiovascular Cardiovascular: Denies chest pain, orthopnea, palpitations or racing heartbeat Respiratory/Chest Respiratory/Chest: Denies cough, dyspnea or orthopnea Gastrointestinal Gastrointestinal: Reports abdominal pain, constipation and other Details: Abdominal distention ; Denies diarrhea, nausea or vomiting Genitourinary Genitourinary ED: Denies dysuria, hematuria or urinary frequency Musculoskeletal Musculoskeletal: Denies arthralgias, back pain or myalgias Integumentary Denies abscess or rash Neurologic Neurologic: Denies headache(s) or weakness Psychiatric Psychiatric: Denies anxiety, depression, suicidal ideation or suicidal thoughts Endocrine Endocrinology: Denies polydipsia, polyphagia or polyuria Allergic/Immunologic Allergic/Immunologic ED: Denies mouth swelling, tongue swelling or urticaria EXAM Physical Exam Const Vital Signs: 05/21/25 17:47 05/21/25 19:46 05/21/25 21:00 Temperature 96.9 F L Temperature Source Temporal Pulse Rate 75 74 63 Respiratory Rate 18 18 18 Blood Pressure 131/73 H 130/64 H 123/54 H Blood Pressure Mean 92 86 77 Pulse Ox 99 97 96 Oxygen Delivery Method Room Air Room Air Room Air 05/21/25 22:05 Temperature 97.5 F L Temperature Source Pulse Rate 77 Respiratory Rate 18 Blood Pressure 123/61 H Blood Pressure Mean 81 Pulse Ox 97 Oxygen Delivery Method Positive well nourished, well developed and obese General Appearance ED: well developed and NAD Nutritional Appearance: obese HEENT Reports normocephalic, head/scalp atraumatic and moist mucous membranes Eyes PERRL and EOMs intact bilaterally Neck no lymphadenopathy, supple and no JVD Resp normal respiratory effort and clear to auscultation bilaterally Cardio regular rate, regular rhythm and no murmurs GI normal to inspection, nondistended, normoactive bowel sounds and non-tender Inspection: Negative for abdominal distention Auscultation: normoactive bowel sounds Palpation: soft and tender other (Mild diffuse tenderness); Negative for guarding or rebound tenderness present Back/Spine no CVA tenderness and normal ROM Extremity normal to inspection General Extremety ED: Negative for edema General Extremity: Negative for edema Neuro oriented x3 and CN's II-XII intact bilaterally Sensorium / Orientation: alert Motor Exam: strength 5/5 throughout Psych mental status grossly normal Mood & Affect: Negative for depressed or tearful Skin no rashes or lesions noted and no wounds MDM MDM MDM Narrative Medical decision making narrative: Differential diagnosis includes bowel obstruction colitis constipation intra- abdominal abscess hernia Basic blood work was obtained essentially negative. Normal LFTs normal lipase normal creatinine white count 8.3. CT abdomen pelvis was obtained read by radiology reviewed by myself. Please see radiologist read for full details. Case discussed with his surgeon Dr. Renteria. At this point I do not have a clear etiology for the patient's symptoms. Do not see an emergent cause to hospitalize him. Would recommend surgical follow-up. He would like to try something to help him have a bowel movement and I can give him a bottle of magnesium citrate. I do not feel based on his CT that is overly distended with stool. Return if worsening or concerns History & Record Review Discussion w/independent historian: Patient and Significant other Additional record(s) reviewed:: Prior inpatient record, Prior ED visit and Prior labs Lab Data Attestation: I reviewed the patient's lab results. Labs: Laboratory Results - last 24 hr 05/21/25 18:08 WBC 8.3 RBC 4.51 L Hgb 13.9 Hct 40.7 MCV 90.2 MCH 30.8 MCHC 34.2 RDW Std Deviation 41.9 RDW Coeff of Megan 12.6 Plt Count 151 MPV 11.3 Immature Gran % (Auto) 1.000 H Neut % (Auto) 57.9 Lymph % (Auto) 27.3 [place] % (Auto) 8.6 Eos % (Auto) 5.0 Baso % (Auto) 0.2 Absolute Neuts (auto) 4.8 Absolute Lymphs (auto) 2.27 Nucleated RBC % 0 Sodium 130 L Potassium 3.8 Chloride 96 L Carbon Dioxide 22.1 Anion Gap 12 BUN 7 Creatinine 0.69 L Estim Creat Clear Calc 164.85 Est GFR (MDRD) Non-Af 106 BUN/Creatinine Ratio 10.7 Glucose 90 Calcium 9.3 Total Bilirubin 0.55 AST 26 ALT 36 Alkaline Phosphatase 52 Total Protein 6.8 Albumin 4.1 Globulin 2.7 Albumin/Globulin Ratio 1.5 Lipase 42 Radiography Diagnostic Testing: Clinical Impression(s) from Imaging Studies Abdomen/Pelvis CT 05/21/25 18:32 IMPRESSION: No acute abnormality is identified. The clinical history states appendectomy. On the current scan, the appendix is still present although the appendicitis seen previously is no longer present Reading Location: [facility] Discharge Plan Triage Chief Complaint: Abd Pain ED Provider: Chapincito Mckenzie Dx/Rx/DC Orders Clinical Impression: Abdominal pain, S/P appendectomy Prescriptions: No Action trazodone 50 mg tablet 150 mg PO QHS PRN (Reason: insomnia) Patient Comments: take 3 tablet by mouth at bedtime if needed for sleep / insomnia aspirin 81 mg tablet,delayed release (DR/EC) 81 mg PO DAILY losartan 50 mg tablet 50 mg PO DAILY nitroglycerin 0.4 mg Tablet, Sublingual 0.4 mg sublingual Q5M PRN (Reason: Cardiac/Chest Pain) Qty: 15 3RF sertraline 50 mg tablet 50 mg PO DAILY multivitamin [Daily Multi-Vitamin] Tablet 1 tab PO DAILY magnesium 250 mg tablet 250 mg PO DAILY clopidogrel 75 mg tablet 75 mg PO DAILY Qty: 90 3RF metoprolol tartrate 50 mg tablet 50 mg PO BID Qty: 180 2RF atorvastatin 10 mg tablet 10 mg PO QHS Qty: 90 3RF Primary Care Provider: Shaniqua Harrington Referrals: Ace Renteria MD [Med Staff - Active Staff, General Surgery] Referral Note: call tomorrow to arrange follow up Shaniqua Harrington DO [Primary Care Provider, Internal Medicine] Print Language: Cambodian Disposition Disposition: Home, Self Care Discharge Date/Time: 05/21/25 22:06
== END 2025-05-21 22:06 | disposition home or self-care (01) ==
PROVIDERS: Emergency Provider Emergency Medicine; PCP Internal Medicine; Visit Provider Emergency Medicine
DX: R10.9 Unspecified abdominal pain (principal); J44.9 Chronic obstructive pulmonary disease, unspecified; I10 Essential (primary) hypertension; F17.210 Nicotine dependence, cigarettes, uncomplicated; I25.10 Atherosclerotic heart disease of native coronary artery without angina pectoris; Z79.82 Long term (current) use of aspirin; Z79.899 Other long term (current) drug therapy; Z79.02 Long term (current) use of antithrombotics/antiplatelets; Z95.5 Presence of coronary angioplasty implant and graft
CPT/HCPCS: 74177; 80053; 83690; 85025; 99283; Q9967; A4216

== ENCOUNTER → 2025-06-04 | Outpatient (CLI) | payer MEDICARE, SELFPAY ==
[2025-06-04 13:05] LABS: Cholesterol 144 mg/dL (<=200); Low Density Lipoprotein Calc. 82 mg/dL; Triglycerides 79 mg/dL; Very Low Density Lipoprotein 16 mg/dL (5-40); cholesterol:hdl ratio screen 3.10
[2025-06-04 13:09] LABS: AST(SGOT) 38 U/L (<=37); Alanine Aminotransfer ALT/SGPT 40 U/L (<=46); Albumin, Serum 4.2 g/dL (3.4-4.8); Alkaline Phosphatase 56 U/L (40-129); Anion Gap 12 (5-15); BUN 6 mg/dL (4-19); BUN/Creat Ratio 8.0 RATIO (10-20); Calcium,Total 9.4 mg/dL (7.6-11.0); Carbon Dioxide 24.2 mmol/L (21.0-32.0); Chloride 102 mmol/L (98-108); Globulin 3.1 g/dL (2.2-4.2); Glucose 194 mg/dL (70-99); Potassium 5.0 mmol/L (3.3-5.1)
== END | disposition home or self-care (01) ==
PROVIDERS: PCP Internal Medicine; Referring Provider Internal Medicine Cardiovascular Disease; Visit Provider Internal Medicine Cardiovascular Disease
DX: I10 Essential (primary) hypertension (principal); E78.5 Hyperlipidemia, unspecified
CPT/HCPCS: 36415; 80053; 80061

== ENCOUNTER 2025-06-15 06:31 | Day surgery (SDC) | payer MEDICARE, SELFPAY ==
--- NOTE | 2025-06-12 19:31 | PAT.ANESEVAL ---
Pre-Assessment Diagnosis/Proposed Procedure Planned Operative Procedure(s): COLONOSCOPY Anesthesia History Anesthesia History - brassiere cup mold cutter: Anesthesia History - brassiere cup mold cutter Hx Hospitalization Yes: APPENDECTOMY 05/21/2025 06/12/25 11:53 Any Problems With Anesthesia No 06/12/25 11:53 Cholinesterase deficiency No 06/12/25 11:53 You/Your Family Experience No 06/12/25 11:53 fever (hyperthermia) with Relationship Recent Exposure to Contagious Disease Does patient have nerve No 06/12/25 11:53 stimulator Patient instructed to have device shut off --Does patient have Pacemaker or ICD? When Was Last Pacemaker Check QUESTION #4 FULL TEXT: You/Your Family Experience fever (hyperthermia) with Anesthesia Last Oral Intake Last Oral intake: Last Oral Intake NPO since Meds taken in AM with sips of water? Meds patient instructed to take am of surgery PONV PONV - brassiere cup mold cutter: PONV - brassiere cup mold cutter Female No 06/12/25 11:53 HX of Motion Sickness No 06/12/25 11:53 HX of N/V After Surgery No 06/12/25 11:53 Non-Smoker No 06/12/25 11:53 Duration of Surgery greater No 06/12/25 11:53 than 60 minutes Number of Risk Factors PONV Score Height & Weight Height & Weight: Anesthesia: Height & Weight Height 6 ft 06/01/25 14:58 Respiratory Assessment Respiratory Assessment - brassiere cup mold cutter: Respiratory Tract Infection Hx - brassiere cup mold cutter Hx Respiratory Tract Infection No 06/12/25 11:53 STOP Sleep Apnea STOP Sleep Apnea - brassiere cup mold cutter: STOP Sleep Apnea - brassiere cup mold cutter Hx Hypertension Yes: CONTROLLED ON MED 06/12/25 11:53 Hx Sleep Apnea Yes: NO MASK USED 06/12/25 11:53 CPAP No 06/12/25 11:53 BIPAP No 06/12/25 11:53 Do you snore loudly (louder than talking or can be heard Do you often feel tired/ fatigued/ sleepy during daytime? Has anyone observed you stop breathing during sleep? STOP Results Positive 06/12/25 11:53 QUESTION #5 FULL TEXT : Do you snore loudly (louder than talking or can be heard through closed doors)? Tobacco Use History Tobacco Use History - brassiere cup mold cutter: Tobacco Use History - brassiere cup mold cutter Tobacco Use Smoking Status Current every day smoker 06/12/25 11:53 Hx Tobacco Use Yes 06/12/25 11:53 Years Smoking Packs Smoked per Day Smoking Cessation Date was within the last 15 years Hx Smoking Cessation Date Hx Smoking Cessation Counseling Hematologic Medial History Hematologic Hx - brassiere cup mold cutter: Hematologic Medical Hx - mold filler plastic dolls Hx of Blood Transfusion No 06/12/25 11:53 Hx of Transfusion in last 3 No 06/12/25 11:53 Months Date of Last Transfusion (if within last 3 months) Ever experience any problems No 06/12/25 11:53 with transfusion(s)? Specify any problems Hx of Preganancy in last 3 N/A 06/12/25 11:53 Months Nurse Filling Out Transfusion VCHRISTIN 06/12/25 11:53 & Questions: Date: 06/12/25 06/12/25 11:53 Time: 11:55 06/12/25 11:53 Patient unable to answer at this time (ie. confused, unrespo /Reproduction History /Reproductive History - brassiere cup mold cutter: /Reproductive Hx- brassiere cup mold cutter Hx Now No 06/12/25 11:53 Gestational Age (in weeks): EDC: Hx Hx Para Hx Section SAB No 06/12/25 11:53 Does the father of the baby or his family experience fever w Father of the baby Malignant Hypertension history comment [facility] Medical History (Updated 06/12/25 @ 11:53 by Jacey Barnett) Wears glasses Alcohol use Arthritis DVT (deep venous thrombosis) Excessive bleeding Back pain Seizures Gastric reflux Smoker Shortness of breath on exertion History of echocardiogram History of stress test Cardiology follow-up encounter History of irregular heartbeat Acute appendicitis Dyspnea on exertion Nicotine dependence Obesity Coronary artery disease Vitamin D deficiency Appetite loss 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] Right hand pain SOB (shortness of breath) Fatigue Heartburn Syncope and collapse Pulmonary hypertension BMI 40.0-44.9, adult EtOH dependence Elevated liver function tests Anxiety Insomnia Tobacco dependence Sleep apnea Essential hypertension Chest pain Nocturnal hypoxemia COPD (chronic obstructive pulmonary disease) Home Medications ?Medication ?Instructions ?Recorded ?Last Taken ?Type aspirin 81 mg tablet,delayed 81 mg PO DAILY heart health 02/16/23 06/09/25 History release losartan 50 mg tablet 50 mg PO DAILY blood pressure 03/24/23 05/20/25 History nitroglycerin 0.4 mg sublingual 0.4 mg sublingual Q5M PRN 04/08/23 Unknown Rx tablet Cardiac/Chest Pain #15 tabs metoprolol tartrate 50 mg tablet 50 mg PO BID heart #180 tabs 02/26/25 05/21/25 Rx magnesium 250 mg tablet 250 mg PO DAILY SUPPLEMENT 04/23/25 05/21/25 History multivitamin (Daily Multi-Vitamin 1 tab PO DAILY SUPPLEMENT 04/23/25 05/21/25 History tablet) sertraline 50 mg tablet 50 mg PO DAILY MOOD 04/23/25 05/20/25 History trazodone 50 mg tablet 150 mg PO QHS insomnia 06/04/25 Unknown History clopidogrel 75 mg tablet 75 mg PO DAILY antiplatelet #90 06/11/25 06/09/25 Rx tabs atorvastatin 20 mg tablet 20 mg PO QHS cholesterol #90 tabs 06/12/25 Unknown Rx Allergy/AdvReac Type Severity Reaction Status Date / Time No Known Allergies Allergy Verified 06/12/25 11:36 Family History Mother Diabetes Heart disease Sister Pulmonary hypertension Father Cancer stomach Heart disease Surgical History (Updated 06/04/25 @ 10:[address] Conrad Feliz MD) History of colonoscopy History of laparoscopic appendectomy Stented coronary artery Hx of cardiac catheterization (~02/02/24) Hx of plastic surgery Social History household members: spouse Smoking Status: Current every day smoker tobacco type: cigarettes alcohol intake: current alcohol intake frequency: 3 or more drinks per day Alcohol type: beer details: 12 beer substance use type: does not use caffeine: No Audit: Pertinent Findings Pertinent Findings EKG Perinent findings: 04/23/2025. Normal sinus rhythm. Stress test pertinent findings: 01/07/2024. EF is 65%. Mild inferior apical ischemia. (See cath below) Echo (EF%) pertinent findings: 01/01/2023. EF of 65% normal PA pressures. No aortic stenosis noted Heart catheterization pertinent findings: 02/02/2024. 70% mid LAD. 70% in-stent restenosis proximal left circumflex, 70% mid left circumflex. 65% distal right PLV. Successful BRIDGETTE to the mid LAD. Consult pertinent findings: 06/04/2025. Dr. Tray. 1. Coronary artery disease-continue aspirin. Risk factor modification. 2. Stented coronary artery-BRIDGETTE to the proximal left circumflex. Mid circumflex with BRIDGETTE x 2. Mid LAD with a BRIDGETTE. 3. Hypertension continue metoprolol losartan. 4. Preoperative cardiovascular exam-patient is acceptable risk for the proposed procedures from a cardiac standpoint. Recommendation Anesthesia Recommendation Anesthesia recommendation: OPTIMIZED for anesthesia
[2025-06-15] VITALS (8 sets, daily range): BP systolic 105–142; BP diastolic 64–81; PULSE 81–91; RESP 15–20; TEMP 36.6; O2SAT 95–100; BMI 41.8
--- OUTSIDE RECORDS SUMMARY | 2025-06-15 06:35 | XMS RPT_ITS | CCD ---
Author Organization [facility] Care Team Providers Care Machine Tool Builder Name Role Phone Tanja Bell Unavailable Marcy Menard Unavailable Unavailable Unavailable Unavailable Tanja Bell Unavailable Selwyn Uribe Unavailable Unavailable Unavailable Karthik Kimble Unavailable Unavailable Karthik Kimble Unavailable Unavailable Slasamira, Tammy Unavailable Unavailable Karthik Herzog Unavailable Unavailable Duane Leach Unavailable [facility] Unavailabl e Ciestelita GINATanja Unavailable Duane Leach Unavailable [facility] Unavailabl e Selwyn Uribe Unavailable Karthik Herzog LPN Unavailable Unavailable Unavailable Unavailable Tanja Bell Unavailable Mateo Escobar Unavailable Tanja Bell Unavailable PHYSICIAN, NOT RECORDED Primary Care Physician U dungailGunjan Mejia CNP Unavailable Gunjan Jimenez CNP Unavailable Maikel Amor Unavailable Slasamira MILLER Tammy Unavailable Unavailable JunieestelitaTanja Unavailable Magdalena Han MA Unavailable Unavailable Gunjan Jimenez CNP Attending Unavailable Gunjan Jimenez CNP Referring Unavailable Gunjan Jimenez CNP Consulting Unavailable Yohana Welsh LPN Unavailable Unavailable Ciesa COMMUNITY HEALTH NURSE, COMMUNITY HEALTH NURSE-C Tanja Primary Care Provider Dr. Denton Oneal Attending Provider Tony, Ms. Gunjan E Attending Unavailabl e Tony, . Gunjan E Primary Care Unavailabl e TONY STOCK REPAIRER-GINA, GUNJAN Primary Care Physician Tony, COMMUNITY HEALTH NURSE-C Gunjan Primary Care Provider Tray, Dr. Martines Attending Provider Tony, COMMUNITY HEALTH NURSE-C Gunjan Referring Provider Tray, Dr. Martines Referring Provider Tray, Dr. Martines Other Provider TORRES Belcher Attending Provider Unavail able Tony, COMMUNITY HEALTH NURSE-C Gunjan Primary Care Provider [phone] Tony, COMMUNITY HEALTH NURSE-C Gunjan Referring Provider Tray, Dr. Martines Attending Provider Dr. Reggie Banerjee Attending Provider [phone] Eleazar COMMUNITY HEALTH NURSE, COMMUNITY HEALTH NURSE-C Ama Attending Provider TONY STOCK REPAIRER-MAPPING EDITOR, GUNJAN Primary Care Unavail able CATHERINE JARVIS DO Attending Unavailable TONY KUREGER-GINA, GUNJAN Primary Care Unavail able CATHERINE JARVIS DO Attending Unavailable PHILIP FRASER, DR ROSA ELENA Valentine Attending Unavailtimothy e TONY STOCK REPAIRER-MAPPING EDITOR, GUNJAN Primary Care Unavail able Tony COMMUNITY HEALTH NURSE-C, Gunjan Primary Care Provider [phone] Dr. Kanu Villafana DO Emergency Provider Tony COMMUNITY HEALTH NURSE-C, Gunjan Primary Care Physician [phone] Dr. Kanu Villafana DO Attending Physician Dr. Kanu Villafana DO Emergency Department Physici an Dr. Shaniqua Harrington DO Primary Care Physician Dr. Denton Oneal MD Attending Physician Dr. Denton Oneal MD Referring Provider Dr. Lloyd Gerard DO Emergency Departmen t Physician Myra FRASER, Dr. Bello Attending Physician Myra FRASER, Dr. Bello Nurse Practitioner Myra FRASER, Dr. Bello Admitting Physician Provider, Ed Physician Attending Unavailab Gunjan Haney Primary Care Unavailable Juany, Shaniqua Referring Unavailable Juany, Shaniqua Primary Care Unavailable Stephani Silva Attending Unavailable Juany, Shaniqua Primary Care Unavailable Myra, Ace Attending Unavailable Myra, Ace Consulting Unavailable Myra, cAe Attending Unavailable Myra, Ace Admitting Unavailable Calabretta, Ace Consulting Unavailable Juany, Shaniqua Primary Care Unavailable Juany, Shaniqua Referring Unavailable Stephani Silva Attending Unavailable Juany, Shaniqua Primary Care Unavailable Mitzy Maurer Attending Unavail able Tony, Gunjan Primary Care Unavailable Tony, Gunjan Referring Unavailable Juany, Shaniqua Primary Care Unavailable Ace Renteria Attending Unavailable Myra, Ace Admitting Unavailable Kanu Villafana Attending Unavailable Tony, Gunjan Primary Care Unavailable Chapincito Mckenzie Attending Unavailable Juany, Shaniqua Primary Care Unavailable Medications Current Medications Medication Drug Class(es) Dates Sig (Normalized) Sig (Original) acetaminophen 325 mg oral tablet (2 sources) Start: 2025 take 1-10 tablets by mouth every four hours as needed for pain [id number] actuat albuterol 0.09 mg/actuat metered dose inhaler (20 sources) beta2-Adrenergic Agonist Start: 12-20-2020 take 2 puff(s) by inhalation every four hours as needed for wheezing ProAir HFA MDI (90 mcg/inh) inhalation aerosol 2 puff(s), Inhalation, q4h, PRN as needed for wheezing, # 8.5 gram(s), 0 Refill(s), Chest pain Start Date: 12/20/20 Status: Ordered Quantity: 8.5 Unit: g Repeat number: 1 Indication: Chest pain, unspecified Start: 03-19-2020 End: 04-18-2020 take 1 mL by inhalation every six hours as needed Albuterol Sulfate 0.63 MG/3ML Inhalation Nebulization Solution 1 (one) Milliliter q 6 hours prn for 30 days Quantity: 1 {Box} Refills: 0 Ordered: 19-Mar-2020 Tammy Mathis LPN Start : 19-Mar-2020 End : 18-Apr-2020 Inactive Start: 11-10-2017 take 1 puff(s) by in halation four times daily as needed ProAir HFA MDI (90 mcg/inh) inhalation aerosol 1 puff(s), Inhalation, QID, PRN Shortness of breath (SOB), # 8.5 gram(s), 0 Refill(s) Start Date: 11/10/17 Status: Ordered Quantity: 8.5 Unit: g Repeat number: 1 albuterol MDI (90 mcg/inh) CFC free inhalation aerosol (6 sources) Start: 10-10-2019 take 2 puff(s) by inhalation every two hours albuterol MDI (90 mcg/inh) CFC free inhalation aerosol 2 puff(s), Inhalation, q2h, # 1 EA, 0 Refill(s) Start Date: 10/10/19 Status: Ordered Quantity: 1.0 Unit: EA Repeat number: 1 Start: 10-10-2019 take 2 puff(s) by in halation every two hours albuterol MDI (90 mcg/inh) CFC free inhalation aerosol 2 puff(s), Inhalation, q2h, # 1 EA, 0 Refill(s) Start Date: 10/10/19 Status: Ordered aspirin 81 mg delayed release oral tablet (20 sources) Platelet Aggregation Inhibitor, Nonsteroidal Anti-inflammatory Drug Start: 02-16-2023 take 1 tablet by mouth once daily Start: 02-23-2018 End: 03-25-2018 take 1 tablet by mouth once daily Aspirin EC 325 MG Oral Tablet Delayed Release 1 (one) Tablet daily for 30 days Quantity: 30 {Tablet} Refills: 0 Ordered: 27-Jun-2018 Arabella Tanja Start : 23-Feb-2018 End : 25-Mar-2018 Inactive Start: 02-17-2018 End: 02-08-2023 take 1 tablet by mouth once daily Aspirin 325 MG tablet Discontinued 325 mg PO DAILY@0800 February 17, 2018 12:00am February 08, 2023 10:25am azithromycin 250 mg oral tablet (1 source) Macrolide Antimicrobial Start: 08-23-2024 End: 08-28-2024 Zithromax Z-Yared 250 mg oral tablet Take two (2) tablets day 1-then one (1) tablet, Oral, Daily, X 5 day(s), # 6 tab(s), 0 Refill(s), 08/28/24 10:29:00 AM EST, 127 Start Date: 08/23/24 Stop Date: 08/28/24 Status: Ordered Quantity: 6.0 Unit: tab(s) Repeat number: 1 homatropine methylbromide 0.3 mg/ml / HYDROcodone bitartrate 1 mg/ml oral solution (1 source) Opioid Agonist, Cholinergic Muscarinic Agonist Start: 08-23-2024 End: 08-26-2024 take 1 dose by mouth every four hours as needed for cough homatropine-hydroco done 1.5 mg-5 mg/5 mL oral syrup Dose = 5 mL, Oral, q4h, PRN as needed for cough, # 60 mL, 0 Refill(s), Influenza A, 127 Start Date: 08/23/24 Stop Date: 08/26/24 Status: Ordered Quantity: 60.0 Unit: mL Repeat number: 1 Indication: Influenza due to other identified influenza virus with other respiratory manifestations Magnesium (2 sources) Start: 04-23-2025 take 1 tablet by mouth once daily metoprolol tartrate 50 mg oral tablet (20 sources) beta-Adrenergic Lety Start: 03-03-2024 End: 02-26-2025 take 1 tablet by mouth twice daily Start: 05-24-2023 End: 03-03-2024 take 1 tablet by mouth twice daily Metoprolol Tartrate 100 mg tablet Discontinued 100 mg PO TWICE A DAY 180 May 24, 2023 1:00am March 03, 2024 2:10pm heart Start: 03-24-2023 End: 05-24-2023 take 1 tablet by mouth twice daily Metoprolol Tartrate 50 mg tablet Discontinued 50 mg PO TWICE A DAY 180 March 24, 2023 12:00am May 24, 2023 3:06pm Start: 02-16-2023 End: 03-24-2023 take 1 tablet by mouth twice daily Metoprolol Tartrate 25 mg tablet Discontinued 25 mg PO TWICE A DAY 60 February 16, 2023 12:00am March 24, 2023 1:43pm Multivitamin (Daily Multi-Vi tamin) tablet (2 sources) Start: 04-23-2025 nitroglycerin 0.4 mg subling ual tablet (5 sources) Nitrate Vasodilator Start: 04-08-2023 Start: 04-08-2023 Nitroglycerin Active 0.4 MG SL Q5M 15 April 07, 2023 11:00pm ondansetron 4 mg disintegrating oral tablet (6 sources) Serotonin-3 Receptor Antagonist Start: 10-10-2019 ondansetron 4 mg oral tablet, disintegrating Dose : 4 mg = 1 tab(s), Oral, q6h, PRN Nausea/Vomiting, # 20 tab(s), 0 Refill(s) Start Date: 10/10/19 Status: Ordered Quantity: 20.0 Unit: tab(s) Repeat number: 1 oseltamivir 75 mg oral capsule (1 source) Neuraminidase Inhibitor Start: 08-23-2024 End: 08-28-2024 Tamiflu 75 mg oral capsule Dose : 75 mg = 1 cap(s), Oral, BID, X 5 day(s), # 10 cap(s), 0 Refill(s), 08/28/24 10:30:00 AM EST Start Date: 08/23/24 Stop Date: 08/28/24 Status: Ordered Quantity: 10.0 Unit: cap(s) Repeat number: 1 oxyCODONE hydrochloride 5 mg oral tablet (2 sources) Opioid Agonist Start: 2025 take 5-10 mg by mouth every four hours as needed for pain Start: 2025 take 5-10 mg by mouth every fo ur hours as needed for pain 12 hr ranolazine 500 mg extended release oral tablet (3 sources) Anti-anginal Start: 11-10-2024 take 1 tablet by mouth twice daily sertraline 50 mg oral tablet (5 sources) Serotonin Reuptake Inhibitor Start: 04-23-2025 take 1 tablet by mouth once daily Start: 12-10-2023 End: 04-23-2025 take 1 tablet by mouth once daily Sertraline 100 mg tablet Discontinued 100 mg PO daily December 10, 2023 12:00am April 23, 2025 9:46am mood traZODone hydrochloride 50 mg oral tablet (20 sources) Serotonin Reuptake Inhibitor Start: 02-08-2023 take 150 mg by mouth at bedtime Trazodone Active 150 MG PO AT BEDTIME February 07, 2023 11:00pm Start: 09-11-2022 take 3 tablets by mo uth at bedtime as needed Start: 03-13-2022 take 3 tablets by mo uth once daily at bedtime for sleep traZODone HCl 50 MG Oral Tablet 3 (three) Tablet qhs for sleep for 30 days Quantity: 90 {Tablet} Refills: 5 Ordered: 13-Mar-2022 Tony GINAGunjan Start : 13-Mar-2022 Active Start: 02-05-2022 take 3 tablets by mo uth once daily at bedtime for sleep traZODone HCl 50 MG Oral Tablet 3 (three) Tablet qhs for sleep for 30 days Quantity: 90 {Tablet} Refills: 0 Ordered: 05-Feb-2022 Shaniqua Harrington DO Start : 05-Feb-2022 Active Start: 12-15-2021 take 3 tablets by mo uth once daily at bedtime for sleep traZODone HCl 50 MG Oral Tablet 3 (three) Tablet qhs for sleep for 30 days Quantity: 90 {Tablet} Refills: 0 Ordered: 15-Dec-2021 Shaniqua Harrington DO Start : 15-Dec-2021 Active Start: 11-18-2021 take 3 tablets by mo uth once daily at bedtime for sleep traZODone HCl 50 MG Oral Tablet 3 (three) Tablet qhs for sleep for 30 days Quantity: 90 {Tablet} Refills: 0 Ordered: 18-Nov-2021 Shaniqua Harrington DO Start : 18-Nov-2021 Active Start: 10-10-2021 End: 09-10-2021 take 3 tablets by mouth once daily at bedtime for sleep traZODone HCl 50 MG Oral Tablet 3 (three) Tablet qhs for sleep for 30 days Quantity: 90 {Tablet} Refills: 0 Ordered: 10-Oct-2021 Juniezebjuan david Tanja Dyson Start : 10-Oct-2021 End : 10-Sep-2021 Active Start: 09-12-2021 End: 09-10-2021 take 3 tablets by mouth once daily at bedtime for sleep traZODone HCl 50 MG Oral Tablet 3 (three) Tablet qhs for sleep for 30 days Quantity: 90 {Tablet} Refills: 0 Ordered: 12-Sep-2021 Tanja Bell CNP, CNP, Mary E Start : 12-Sep-2021 End : 10-Sep-2021 Active Start: 08-11-2021 take 3 tablets by mo uth once daily at bedtime for sleep traZODone HCl 50 MG Oral Tablet 3 (three) Tablet qhs for sleep for 30 days Quantity: 90 {Tablet} Refills: 0 Ordered: 11-Aug-2021 Tanja Bell CNP, CNP, Mary E Start : 11-Aug-2021 Active Start: 01-02-2021 End: 11-04-2020 take 3 tablets by mouth once daily at bedtime for sleep traZODone HCl 50 MG Oral Tablet 3 (three) Tablet qhs for sleep for 30 days Quantity: 90 {Tablet} Refills: 0 Ordered: 02-Jan-2021 Tanja Bell CNP, CNP, Mary E Start : 02-Jan-2021 End : 04-Nov-2020 Active Start: 12-04-2020 End: 11-04-2020 take 3 tablets by mouth once daily at bedtime for sleep traZODone HCl 50 MG Oral Tablet 3 (three) Tablet qhs for sleep for 30 days Quantity: 90 {Tablet} Refills: 0 Ordered: 04-Dec-2020 Tanja Bell CNP, CNP, Mary E Start : 04-Dec-2020 End : 04-Nov-2020 Active Start: 11-05-2020 End: 11-04-2020 take 3 tablets by mouth once daily at bedtime for sleep traZODone HCl 50 MG Oral Tablet 3 (three) Tablet qhs for sleep for 30 days Quantity: 90 {Tablet} Refills: 0 Ordered: 05-Nov-2020 Tanja Bell CNP, CNP, Mary E Start : 05-Nov-2020 End : 04-Nov-2020 Active Start: 10-05-2020 End: 09-29-2020 take 3 tablets by mouth once daily at bedtime for sleep traZODone HCl 50 MG Oral Tablet 3 (three) Tablet qhs for sleep for 30 days Quantity: 90 {Tablet} Refills: 0 Ordered: 05-Oct-2020 Tanja Bell CNP, CNP, Mary E Start : 05-Oct-2020 End : 29-Sep-2020 Active Start: 08-30-2020 End: 08-28-2020 take 3 tablets by mouth once daily at bedtime for sleep traZODone HCl 50 MG Oral Tablet 3 (three) Tablet qhs for sleep for 30 days Quantity: 90 {Tablet} Refills: 0 Ordered: 30-Aug-2020 Tanja Bell CNP, CNP, Mary E Start : 30-Aug-2020 End : 28-Aug-2020 Active Start: 08-30-2020 End: 08-28-2020 take 3 tablets by mouth once daily at bedtime for sleep traZODone HCl 50 MG Oral Tablet 3 (three) Tablet qhs for sleep for 30 days Quantity: 90 {Tablet} Refills: 0 Ordered: 30-Aug-2020 Tanja Bell CNP, CNP, Mary E Start : 30-Aug-2020 End : 28-Aug-2020 Active Start: 10-10-2019 take 3 tablets by mo uth at bedtime for sleep traZODone 50 mg oral tablet take 3 tablets by mouth at bedtime for sleep Start Date: 10/10/19 Status: Ordered Repeat number: 1 Start: 04-03-2019 take 2 tablets by mo uth once daily at bedtime for sleep traZODone HCl 50 MG Oral Tablet 2 (two) Tablet qhs for sleep for 30 days Quantity: 60 {Tablet} Refills: 3 Ordered: 03-Apr-2019 Tanja Bell CNP, CNP, Mary E Start : 03-Apr-2019 Active Start: 02-22-2019 traZODone 50 m g oral tablet Dose : 50 mg = 1 tab(s), Oral, qDay, 0 Refill(s) Start Date: 02/22/19 Status: Ordered Repeat number: 1 Start: 12-05-2018 take 2 tablets by mo uth once daily at bedtime for sleep traZODone HCl 50 MG Oral Tablet 2 (two) Tablet qhs for sleep for 30 days Quantity: 60 {Tablet} Refills: 3 Ordered: 05-Dec-2018 Tammy Mathis LPN Start : 05-Dec-2018 Active Start: 06-29-2018 take 2 tablets by mo uth once daily at bedtime for sleep TraZODone HCl 50 MG Oral Tablet 2 (two) Tablet qhs for sleep for 30 days Quantity: 60 {Tablet} Refills: 3 Ordered: 29-Jun-2018 Arabella FUENTES, Tanja Bell CNP, Tanja Greene Start : 29-Jun-2018 Active Completed/Discontinued Medications Medication Drug Class(es) Dates Sig (Normalized) Sig (Original) acetaminophen 325 mg / HYDROcodone bitartrate 5 mg oral tablet (14 sources) Opioid Agonist Start: 03-21-2025 End: 04-23-2025 Hydrocodone-Acetami nophen 5-325 mg tablet Discontinued 1 {tbl} PO EVERY 4 HOURS NEEDED as needed for Pain 10 2 March 21, 2025 April 23, 2025 11:21am Chest pain Chest pain, unspecified Start: 08-09-2022 End: 08-12-2022 take 1 tablet by mouth every six hours as needed for pain [place] 325- 5 mg oral tablet Dose = 1 tab(s), Oral, q6h, PRN as needed for pain, # 12 tab(s), 0 Refill(s), Leg pain, 131.8 Start Date: 08/09/22 Stop Date: 08/12/22 Status: Ordered Quantity: 12.0 Unit: tab(s) Repeat number: 1 Indication: Pain in unspecified limb Start: 12-20-2020 End: 12-23-2020 take 1 tablet by mouth every six hours as needed for pain [place] 325- 5 mg oral tablet Dose = 1 tab(s), Oral, q6h, PRN as needed for pain, # 12 tab(s), 0 Refill(s), Chest pain, 131.8 Start Date: 12/20/20 Stop Date: 12/23/20 Status: Ordered Quantity: 12.0 Unit: tab(s) Repeat number: 1 Indication: Chest pain, unspecified amLODIPine 5 mg oral tablet (16 sources) Dihydropyridine Calcium Channel Lety Start: 03-28-2024 End: 11-10-2024 take 1 tablet by mouth once daily Amlodipine 5 mg tablet Discontinued 5 mg PO DAILY 90 March 28, 2024 1:20pm November 10, 2024 10:48am blood pressure On Hold: Dizzy and lightheaded, low BP\ Start: 03-24-2023 End: 03-28-2024 take 1 tablet by mouth once daily Amlodipine 10 mg tablet Discontinued 10 mg PO DAILY 90 September 23, 2023 8:13am March 28, 2024 1:21pm blood pressure Start: 02-16-2023 End: 03-24-2023 take 1 tablet by mouth once daily Amlodipine 5 mg tablet Discontinued 5 mg PO DAILY 30 February 16, 2023 12:00am March 24, 2023 1:42pm amoxicillin 875 mg / clavulanate 125 mg oral tablet (20 sources) Penicillin-class Antibacterial Start: 04-17-2019 End: 05-01-2019 take 1 tablet by mouth twice daily Augmentin 875-125 MG Oral Tablet 1 (one) Tablet bid for 14 days Quantity: 28 {Tablet} Refills: 0 Ordered: 17-Apr-2019 Tanja Bell Start : 17-Apr-2019 End : 01-May-2019 Inactive atorvastatin 10 mg oral tablet (13 sources) HMG-CoA Reductase Inhibitor Start: 04-08-2023 End: 04-03-2025 take 1 tablet by mouth at bedtime Atorvastatin 10 mg tablet Discontinued 10 mg PO AT BEDTIME 60 3 August 07, 2024 2:20pm April 03, 2025 1:42pm cholesterol blood pressure test kit-large miscellaneous Kit (16 sources) Start: 03-20-2022 blood pressure test kit-large miscellaneous Kit 1 (one) Device as directed for 0 days Quantity: 1 Kit Refills: 0 Ordered: 20-Mar-2022 Magdalena Han MA Start : 20-Mar-2022 Active Comments: dx: HTNblood pressure kit, arm cuff please (large) Comment on above: dx: HTNblood pressur e kit, arm cuff please (large) 120 actuat budesonide 0.16 mg/actuat / formoterol fumarate 0.0045 mg/actuat metered dose inhaler (20 sources) Corticosteroid, beta2-Adrenergic Agonist Start: 02-10-2019 End: 04-17-2019 take 2 puff(s) by inhalation twice daily Symbicort 160-4.5 MCG/ACT Inhalation Aerosol 2 (two) Puff bid for 0 days Quantity: 2 {Inhaler} Refills: 0 Ordered: 17-Apr-2019 Karthik Herzog LPN Start : 10-Feb-2019 End : 17-Apr-2019 Inactive Start: 02-10-2019 End: 04-17-2019 take 2 puff(s) by inhalation twice daily Symbicort 160-4.5 MCG/ACT Inhalation Aerosol 2 (two) Puff bid for 0 days Quantity: 2 {Inhaler} Refills: 0 Ordered: 17-Apr-2019 Karthik Herzog LPN Start : 10-Feb-2019 End : 17-Apr-2019 Inactive busPIRone hydrochloride 10 mg oral tablet (20 sources) Start: 03-29-2023 End: 03-28-2023 take 2 tablets by mouth three times daily busPIRone 10 mg oral tablet 2 (two) Tablet 2 tabs tid for 30 days Quantity: 180 {Tablet} Refills: 2 Ordered: 29-Mar-2023 Gunjan Jimenez CNP Start : 29-Mar-2023 End : 28-Mar-2023 Active Comments: increased dose Start: 02-26-2023 End: 02-24-2023 take 2 tablets by mouth three times daily busPIRone 10 mg oral tablet 2 (two) Tablet 2 tabs tid for 30 days Quantity: 180 {Tablet} Refills: 0 Ordered: 26-Feb-2023 Gunjan Jimenez CNP Start : 26-Feb-2023 End : 24-Feb-2023 Active Comments: increased dose Start: 02-26-2023 End: 02-24-2023 take 2 tablets by mouth three times daily busPIRone 10 mg oral tablet 2 (two) Tablet 2 tabs tid for 30 days Quantity: 180 {Tablet} Refills: 0 Ordered: 26-Feb-2023 Gunjan Jimenez CNP Start : 26-Feb-2023 End : 24-Feb-2023 Active Comments: increased dose Start: 02-26-2023 End: 02-24-2023 take 2 tablets by mouth three times daily busPIRone 10 mg oral tablet 2 (two) Tablet 2 tabs tid for 30 days Quantity: 180 {Tablet} Refills: 0 Ordered: 26-Feb-2023 Gunjan Jimenez CNP Start : 26-Feb-2023 End : 24-Feb-2023 Active Comments: increased dose Start: 02-26-2023 End: 02-24-2023 take 2 tablets by mouth three times daily busPIRone 10 mg oral tablet 2 (two) Tablet 2 tabs tid for 30 days Quantity: 180 {Tablet} Refills: 0 Ordered: 26-Feb-2023 Gunjan Jimenez CNP Start : 26-Feb-2023 End : 24-Feb-2023 Active Comments: increased dose Start: 02-26-2023 End: 02-24-2023 take 2 tablets by mouth three times daily busPIRone 10 mg oral tablet 2 (two) Tablet 2 tabs tid for 30 days Quantity: 180 {Tablet} Refills: 0 Ordered: 26-Feb-2023 Gunjan Jimenez CNP Start : 26-Feb-2023 End : 24-Feb-2023 Active Comments: increased dose Start: 02-16-2023 End: 12-10-2023 take 3 tablets by mouth twice daily Buspirone 10 mg tablet Discontinued 30 mg PO TWICE A DAY February 16, 2023 9:53am December 10, 2023 11:37am Start: 02-16-2023 take 30 mg by mouth twice cassandra y Buspirone Active 30 MG PO TWICE A DAY February 16, 2023 8:53am Start: 02-08-2023 End: 02-16-2023 take 2 tablets by mouth three times daily Buspirone 10 mg tablet Discontinued 20 mg PO THREE TIMES A DAY February 08, 2023 12:00am February 16, 2023 9:53am Start: 02-08-2023 End: 02-16-2023 take 20 mg by mouth three times daily Buspirone Discontinued 20 MG PO THREE TIMES A DAY February 07, 2023 11:00pm February 16, 2023 8:53am Start: 01-25-2023 End: 01-24-2023 take 2 tablets by mouth three times daily busPIRone 10 mg oral tablet 2 (two) Tablet 2 tabs tid for 30 days Quantity: 180 {Tablet} Refills: 0 Ordered: 25-Jan-2023 Gunjan Jimenez CNP Start : 25-Jan-2023 End : 24-Jan-2023 Active Comments: increased dose Start: 01-25-2023 End: 01-24-2023 take 2 tablets by mouth three times daily busPIRone 10 mg oral tablet 2 (two) Tablet 2 tabs tid for 30 days Quantity: 180 {Tablet} Refills: 0 Ordered: 25-Jan-2023 Gunjan Jimenez CNP Start : 25-Jan-2023 End : 24-Jan-2023 Active Comments: increased dose Start: 01-25-2023 End: 01-24-2023 take 2 tablets by mouth three times daily busPIRone 10 mg oral tablet 2 (two) Tablet 2 tabs tid for 30 days Quantity: 180 {Tablet} Refills: 0 Ordered: 25-Jan-2023 Gunjan Jimenez CNP Start : 25-Jan-2023 End : 24-Jan-2023 Active Comments: increased dose Start: 12-25-2022 take 2 tablets by mo uth three times daily busPIRone 10 mg oral tablet 2 (two) Tablet 2 tabs tid for 30 days Quantity: 180 {Tablet} Refills: 0 Ordered: 25-Dec-2022 Gunjan Jimenez CNP Start : 25-Dec-2022 Active Comments: increased dose Start: 08-16-2022 take 2 tablets by mo uth three times daily busPIRone 10 mg oral tablet 2 (two) Tablet 2 tabs tid for 30 days Quantity: 180 {Tablet} Refills: 3 Ordered: 16-Aug-2022 Gunjan Jimenez CNP Start : 16-Aug-2022 Active Comments: increased dose Start: 03-20-2022 take 2 tablets by mo uth three times daily busPIRone HCl 10 MG Oral Tablet 2 (two) Tablet 2 tabs tid for 30 days Quantity: 180 {Tablet} Refills: 3 Ordered: 20-Mar-2022 Gunjan Jimenez CNP Start : 20-Mar-2022 Active Comments: increased dose Start: 12-15-2021 busPIRone HCl 10 MG Oral Tablet 2 (two) Tablet 2 tablet qam and two tablets qhs for 30 days Quantity: 120 {Tablet} Refills: 1 Ordered: 15-Dec-2021 Shaniqua Harrington DO Start : 15-Dec-2021 Active Start: 11-18-2021 busPIRone HCl 10 MG Oral Tablet 2 (two) Tablet 2 tablet qam and two tablets qhs for 30 days Quantity: 120 {Tablet} Refills: 1 Ordered: 18-Nov-2021 Shaniqua Harrington DO Start : 18-Nov-2021 Active Start: 09-12-2021 busPIRone HCl 10 MG Oral Tablet 2 (two) Tablet 2 tablet qam and two tablets qhs for 30 days Quantity: 120 {Tablet} Refills: 1 Ordered: 12-Sep-2021 Tanja Bell Mary Start : 12-Sep-2021 Active Start: 05-09-2021 busPIRone HCl 10 MG Oral Tablet 2 (two) Tablet 2 tablet qam and two tablets qhs for 30 days Quantity: 120 {Tablet} Refills: 3 Ordered: 09-May-2021 Tanja Bell CNP, CNP, Mary E Start : 09-May-2021 Active Start: 01-02-2021 busPIRone HCl 10 MG Oral Tablet 2 (two) Tablet 2 tablet qam and two tablets qhs for 30 days Quantity: 120 {Tablet} Refills: 3 Ordered: 02-Jan-2021 Tanja Bell CNP, CNP, Mary E Start : 02-Jan-2021 Active Start: 07-25-2019 take 2 tablets by mo uth once daily in the morning, then take 2 tablets by mouth at bedtime busPIRone 10 mg oral tablet take 2 tablets by mouth every morning and 2 at bedtime Start Date: 10/10/19 Status: Ordered Repeat number: 1 Start: 03-01-2019 busPIRone HCl 10 MG Oral Tablet 2 (two) Tablet 2 tablet qam and two tablets qhs for 30 days Quantity: 120 {Tablet} Refills: 3 Ordered: 01-Mar-2019 Ani Hartman MD Start : 01-Mar-2019 Active Start: 02-22-2019 take 1 dose by mouth twice daily Buspar use busPIRone Dose : 10 mg =, Oral, BID, 0 Refill(s) Start Date: 02/22/19 Status: Ordered Repeat number: 1 Start: 02-10-2019 busPIRone HCl 10 MG Oral Tablet 2 (two) Tablet 2 tablet qam and two tablets qhs for 30 days Quantity: 120 {Tablet} Refills: 3 Ordered: 10-Feb-2019 Tanja Bell CNP, CNP, Mary E Start : 10-Feb-2019 Active Start: 06-29-2018 End: 01-11-2019 busPIRone HCl 10 MG Oral Tab let 2 (two) Tablet 2 tablet qam and two tablets qhs for 30 days Quantity: 120 {Tablet} Refills: 3 Ordered: 11-Jan-2019 Keyshawnjuan david FUENTES Tanja Mahajanjuan david FUENTES, Tanja Greene Start : 29-Jun-2018 End : 11-Jan-2019 Inactive Comment on above: increased dose clopidogrel 75 mg oral tablet (11 sources) P2Y12 Platelet Inhibitor Start: End: take 1 tablet by mouth once daily Clopidogrel 75 mg tablet Discontinued 75 mg PO DAILY 90 3 March 28, 2024 1:25pm May 22, 2024 4:46pm antiplatelet diazePAM 2 mg oral tablet (10 sources) Benzodiazepine Start: diazePAM 2 mg oral tablet 1 (one) tablet as directed for 0 days Quantity: 2 {Tablet} Refills: 0 Ordered: 18-Dec-2022 Tony FUENTES Gunjan Start : 18-Dec-2022 Active 12 hr guaiFENesin 600 mg extended release oral tablet (20 sources) Start: End: take 1 tablet by mouth twice daily Mucinex 600 MG Oral Tablet Extended Release 12 Hour 1 (one) Tablet bid for 0 days Quantity: 60 {Tablet} Refills: 0 Ordered: 26-Jul-2020 Karthik Herzog LPN Start : 10-Feb-2019 End : 26-Jul-2020 Inactive hydrocortisone acetate 25 mg rectal suppository (20 sources) Corticosteroid Start: End: Anusol-HC 25 MG Rectal Suppository 1 (one) Suppository qhs x 7-10 days for 0 days Quantity: 10 {Suppository} Refills: 0 Ordered: 13-Feb-2022 Tammy Mathis LPN Start : 10-Oct-2021 End : 13-Feb-2022 Inactive Comments: or generic Comment on above: or generic hydrOXYzine hydrochloride 50 mg oral tablet (20 sources) Antihistamine Start: End: take 1-2 tablets by mouth every six hours as needed for anxiety hydrOXYzine HCl 50 MG Oral Tablet 1-2 Tablet q6hrs prn anxiety for 0 days Quantity: 120 {Tablet} Refills: 0 Ordered: 10-Feb-2019 Tammy Mathis LPN Start : 11-Jan-2019 End : 10-Feb-2019 Discontinued ibuprofen 200 mg oral tablet (20 sources) Nonsteroidal Anti-inflammatory Drug Start: End: take 1 tablet by mouth every six hours at mealtime Advil 200 MG Oral Tablet 1 (one) Tablet q6 hrs for 5 days Quantity: 30 {Tablet} Refills: 0 Ordered: 30-Aug-2020 Tanja Bell Start : 26-Jul-2020 End : 31-Jul-2020 Inactive Comments: with food Comment on above: with food LORazepam 1 mg oral tablet (6 sources) Benzodiazepine Start: End: take 1 tablet by mouth three times daily as needed for anxiety Lorazepam 1 MG tablet Discontinued 1 mg PO THREE TIMES A DAY as needed for Anxiety 10 0 February 17, 2018 10:30pm February 08, 2023 10:25am losartan potassium 50 mg oral tablet (20 sources) Angiotensin 2 Receptor Lety Start: End: Losartan 50 mg tablet Discontinued 75 mg PO DAILY February 08, 2023 12:00am March 24, 2023 1:45pm Start: 02-08-2023 End: 03-24-2023 take 75 mg by mouth once daily Losartan Discontinued 7 5 MG PO DAILY February 07, 2023 11:00pm March 24, 2023 12:45pm Start: 07-29-2022 take 1 tablet by ani th once daily Start: 07-24-2022 take 1 tablet by ani th once daily losartan 100 mg oral tablet 1 (one) Tablet one tab once daily for 30 days Quantity: 30 {Tablet} Refills: 3 Ordered: 24-Jul-2022 Gunjan Jimenez CNP Start : 24-Jul-2022 Active Start: 07-01-2022 take 1 tablet by ani th once daily losartan 50 mg oral tablet 1 (one) Tablet one tab once daily for 30 days Quantity: 30 {Tablet} Refills: 0 Ordered: 01-Jul-2022 Gunjan Jimenez CNP Start : 01-Jul-2022 Active Start: 05-07-2022 take 1 tablet by ani th once daily Losartan Potassium 50 MG Oral Tablet 1 (one) Tablet one tab once daily for 30 days Quantity: 30 {Tablet} Refills: 1 Ordered: 07-May-2022 Gunjan Jimenez CNP Start : 07-May-2022 Active Comment on above: New dose predniSONE 10 mg oral tablet (20 sources) Start: 02-15-2022 End: 02-20-2022 predniSONE 10 mg oral tablet Dose : 40 mg = 4 tab(s), Oral, qDay, # 20 tab(s), 0 Refill(s) Start Date: 02/15/22 Stop Date: 02/20/22 Status: Ordered Quantity: 20.0 Unit: tab(s) Repeat number: 1 Start: 04-17-2019 End: 07-26-2020 predniSONE 10 MG Oral Tablet 1 (one) Tablet 3daily x 3 days, 2 daily x 3 days, 1 daily x 3 days for 0 days Quantity: 18 {Tablet} Refills: 0 Ordered: 26-Jul-2020 Karthik Herzog LPN Start : 17-Apr-2019 End : 26-Jul-2020 Inactive Comments: with food Comment on above: with food RA Blood Pressure Cuff Monitor Device (2 sources) Start: 03-20-2022 RA Blood Pressure Cuff Monitor Device 1 (one) Device as directed for 0 days Quantity: 1 Kit Refills: 0 Ordered: 20-Mar-2022 Gunjan Jimenez CNP Start : 20-Mar-2022 Active Comments: dx: HTNblood pressure kit, arm cuff please (large) Comment on above: dx: HTNblood pressur e kit, arm cuff please (large) raNITIdine 75 mg oral tablet (20 sources) Histamine-2 Receptor Antagonist Start: 02-23-2018 End: 03-25-2018 take 1 tablet by mouth once daily Ranitidine Acid Coal Pipeline Operator 75 MG Oral Tablet 1 (one) Tablet daily for 30 days Quantity: 30 {Tablet} Refills: 0 Ordered: 27-Jun-2018 Tanja Bell Start : 23-Feb-2018 End : 25-Mar-2018 Inactive Start: 02-17-2018 End: 02-08-2023 Zantac Discontinued February 162017 11:00pm February 08, 2023 9:25am Start: 02-17-2018 End: 02-08-2023 Zantac Discontinued February 172017 12:00am February 08, 2023 10:25am Start: 02-17-2018 Zantac Active February 17, 2018 12:00am Start: 11-10-2017 ranitidine 0 R efill(s) Start Date: 11/10/17 Status: Ordered Repeat number: 1 Start: 11-10-2017 ranitidine 0 R efill(s) Start Date: 11/10/17 Status: Ordered Problems Active Problems Problem Classification Problem Date Documented Da te Episodic/Chronic Abdominal pain (1 source) Unspecified abdominal pain; Translations: [Unspecified abdominal pain] Onset: 05-14-2025 Episodic Alcohol-related disorders (20 sources) Alcohol dependence; Translations: [EtOH dependence] 02-17-2022 Chronic Comment on above: -discussed cessation , recommend treatment and f/u with counseling and AAdrinks 10-15 beers per day. Sometimes in the heat, which could contribute to dizziness and syncope, education extensive to patient and his . -discussed cessation , recommend treatment and f/u with counseling and AA. reviewed again w/ patientdrinks 10-15 beers per day. Sometimes in the heat, which could contribute to dizziness and syncope, education extensive to patient and his . Anxiety disorders (20 sources) Anxiety; Translations: [Anxiety disorder] Resolved: 02-13-2022 02-23-2018 Chronic Comment on above: multifactorial multifactorial, has been on buspar, does not help, asking for hydoxyzine, agree to prescribe pt needs follow up takes 30mg twice per day instead of 20mg tid.multifactorial, has been on buspar, does not help, asking for hydoxyzine, agree to prescribe pt needs follow up having CT done, need s something to help relax. becomes violent during panic attacks Appendicitis and other appendiceal conditions (5 sources) Acute appendicitis; Translations: [Unspecified acute appendicitis] Onset: 05-14-2025 05-02-2025 Episodic Chronic obstructive pulmonary disease and bronchiectasis (20 sources) Chronic obstructive lung disease; Translations: [COPD (chronic obstructive pulmonary disease)] Onset: 08-23-2024 02-23-2018 Chronic Comment on above: smoker x [address] Joe alberto for pulmonary HTN, review notes. He does not want to go back, would like another referral.smoker x 40 years+discussed smoking cessation, he is trying but not going great Chronic obstructive pulmonary disease and bronchiectasis (13 sources) Chronic obstructive pulmonary disease and bronchiectasis Conditions associated with dizziness or vertigo (4 sources) Dizziness; Translations: [Dizziness and giddiness] 08-20-2023 Episodic Coronary atherosclerosis and other heart disease (8 sources) Coronary arteriosclerosis; Translations: [Atherosclerotic heart disease of [place] coronary artery without angina pectoris] 02-16-2023 Chronic Coronary atherosclerosis and other heart disease (5 sources) Stented coronary artery; Translations: [Presence of coronary angioplasty implant and graft] 04-09-2023 Episodic Comment on above: BRIDGETTE Prox LCX using R esolute Davi 3.0x18 mm 04/08/23, Mid Circumflex- BRIDGETTE 2.5 x 30 mm [place] and 3.0 x 26mm [place] along with Mid LAD- BRIDGETTE 3.0 x 12 mm [place] 02/02/24 Disorders of lipid metabolism (5 sources) Dyslipidemia; Translations: [Hyperlipidemia, unspecified] 05-24-2023 Chronic Essential hypertension (20 sources) Benign hypertension; Translations: [HTN (hypertension), benign] Onset: 01-24-2023 04-03-2022 Chronic Comment on above: tolerating losartan. BP mild improvement. would continue to follow bp's, he has hepatic impairment so caution with increasing losartan. may need to add amlodipine 2.5mg daily if remains elevatedremains elevated, systolic consistently >140. tolerating losartan with mild BP improvement. would continue to follow bp's, he has hepatic impairment so caution with increasing losartan. may need to add amlodipine 2.5mg daily if remains elevatedremains elevated, systolic consistently >140. Heart valve disorders (20 sources) Heart murmur; Translations: [Murmur] 02-13-2022 Episodic Hemorrhoids (20 sources) Hemorrhoids; Translations: [Hemorrhoid] 10-10-2021 Episodic Influenza (2 sources) Influenza; Translations: [Influenza due to other identified influenza virus with other respiratory manifestations] Onset: 08-23-2024 Episodic Malaise and fatigue (20 sources) Fatigue; Translations: [Fatigue] 03-20-2022 Episodic Comment on above: -Look into [facility] screening, go online and find location near you and sign up, says its about $159 Miscellaneous mental health disorders (20 sources) 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 would do CXR, stress and echo. it has been 10 yrs and had diastolic dysfunction (stg I) then Nutritional deficiencies (20 sources) Vitamin D deficiency; Translations: [Vitamin D deficiency] 12-16-2022 Chronic Other connective tissue disease (20 sources) Pain in right hand; Translations: [Hand pain, right] 07-29-2020 Episodic Other connective tissue disease (1 source) Pain in limb; Translations: [Pain in unspecified limb] Onset: 08-09-2022 Episodic Other connective tissue disease (1 source) Pain in right lower limb; Translations: [Pain in right leg] Onset: 08-09-2022 Episodic Other gastrointestinal disorders (20 sources) Heartburn; Translations: [Heartburn] 02-23-2018 Episodic Other lower respiratory disease (20 sources) Dyspnea; Translations: [SOB (shortness of breath)] 11-10-2017 Episodic Comment on above: likely multifactoria l. we will check a btnp Other lower respiratory disease (5 sources) Dyspnea on exertion; Translations: [Other forms of dyspnea] 03-24-2023 Episodic Other lower respiratory disease (2 sources) Other forms of dyspnea; Translations: [Other respiratory abnormalities] 03-24-2023 Episodic Other nutritional; endocrine; and metabolic disorders (20 sources) Body mass index 30+ - obesity; Translations: [BMI 38.0-38.9,adult] 02-23-2018 Chronic Other nutritional; endocrine; and metabolic disorders (20 sources) Body mass index 40+ - severely obese; Translations: [BMI 40.0-44.9, adult] 02-10-2019 Chronic Other nutritional; endocrine; and metabolic disorders (5 sources) Obesity; Translations: [Obesity, unspecified] 02-16-2023 Chronic Other nutritional; endocrine; and metabolic disorders (3 sources) Obesity, unspecified; Translations: [Obesity, unspecified] 02-16-2023 Chronic Other nutritional; endocrine; and metabolic disorders (20 sources) Loss of appetite; Translations: [Appetite loss] 12-16-2022 Episodic Comment on above: unclear etiolgy. I s uspect possibly cardiac issues. High risk factors.losing weight. early satiety. Other screening for suspected conditions (not mental disorders or infectious disease) (20 sources) Patient encounter status; Translations: [Screening for diabetes mellitus] Onset: 01-08-2023 03-25-2022 Episodic Comment on above: has risk factors, wi ll screen with an A1c recheck labs. still drinking quite a bit of alcohol Other upper respiratory disease (20 sources) Pain in throat Episodic Other upper respiratory infections (20 sources) Sore throat symptom; Translations: [Sore throat] 04-17-2019 Episodic Pulmonary heart disease (20 sources) Pulmonary hypertension; Translations: [Pulmonary hypertension] 02-23-2018 Chronic Comment on above: Joseph from [facility] and Dr. Headley Sees Sibilia refer to PMW Dr. Benedicto ferraro or Diane Klein [facility] NURSE-he is noncompliant/intolerant to PAP. I suspect much of symptoms r/t to untreated DENT[place] and worsening pulm HTN, ongoing tobacco abuseSees Sibilia but declines returning, wants different pulmonlogist advised should reest ablish with rotor casting machine setup operator, saw Keeganilia but does not like to go to specialists d/t cost.Joseph from [facility] and Dr. Headley in the past Residual codes; unclassified (20 sources) Sleep apnea; Translations: [Sleep apnea] 02-23-2018 Chronic Comment on above: untreated per pt dec ision regarding affect on breathing and panic untreated per pt dec ision regarding affect on breathing and panic and run outside intolerant to cpap/b ipapuntreated per pt decision regarding affect on breathing and panic and run outside Residual codes; unclassified (20 sources) Persistent insomnia; Translations: [Insomnia, persistent] 03-09-2018 Chronic Residual codes; unclassified (20 sources) Tobacco user; Translations: [Tobacco user] 02-23-2018 Chronic Residual codes; unclassified (20 sources) Hypoxia; Translations: [Nocturnal hypoxemia] 07-24-2022 Chronic Comment on above: do overnight pulse o xintolerant to cpap. may need nocturnal O2 supplementation Residual codes; unclassified (5 sources) H/O: Disorder; Translations: [Sleep Apnea] 04-17-2019 Episodic Residual codes; unclassified (20 sources) Persistent insomnia; Translations: [Insomnia, persistent] 07-26-2020 Episodic Comment on above: cautioned with sedat jarrett d/t sleep apneaon trazadone but moderate to severe sleep apnea cautioned with sedat jarrett d/t sleep apnea-saw pulmonary.on trazadone but moderate to severe sleep apnea, intolerant to PAP, severe claustrophobia Residual codes; unclassified (20 sources) Tobacco user; Translations: [Tobacco user] 07-26-2020 Episodic Comment on above: cutting back lately, averaging a little less than 1 PPD (was 2PPD) Residual codes; unclassified (20 sources) Early satiety; Translations: [Early satiety] 12-16-2022 Episodic Screening and history of mental health and substance abuse codes (17 sources) H/O: anxiety state; Translations: [Anxiety Disorder] 02-23-2018 Episodic Substance-related disorders (13 sources) Nicotine dependence; Translations: [Nicotine dependence, unspecified, uncomplicated] 02-16-2023 Chronic Syncope (20 sources) Syncope and collapse; Translations: [Syncope and collapse] 02-13-2022 Episodic Comment on above: orthostatic VS negat pradeep todayunclear etiology, orders are below maybe try [facility] screening for the carotid duplex since that is around $150 vs much more for Holter and carotids at hospital.unclear etiology, orders are below. orthostatic VS negative-had ordered carotids and holter but not done due to cost Unclassified (20 sources) BMI 38.0-38.9,adult Unclassified (20 sources) Unclassified (20 sources) Insomnia, persistent Unclassified (20 sources) BMI 40.0-44.9, adult Unclassified (2 sources) EtOH dependence Past or Other Problems Problem Classification Problem Date Documented Da te Episodic/Chronic Headache; including migraine (12 sources) Headache; including migraine Other connective tissue disease (4 sources) Pain in right hand; Translations: [Hand pain, right] 07-29-2020 Other lower respiratory disease (12 sources) H/O: respiratory disease; Translations: [Sleep Apnea] 02-23-2018 Episodic Residual codes; unclassified (1 source) Procedure and treatment not carried out due to patient leaving prior to being seen by health care provider; Translations: [Procedure and treatment not carried out due to patient leaving prior to being seen by health care provider] Onset: 08-28-2024 Episodic Unclassified (20 sources) Unspecified Diagnosis 06-29-2018 Unclassified (20 sources) Hand pain, right Unclassified (8 sources) Hemorrhoid Results Test Name Value Interpretation Reference Range Facility Emergency Department Summary on 05-22-2025 Emergency Department Summary [facility] Medical Records Department [address] [place] [address] Emergency Department Summary 05/22/25 MR#: [id number] Acct: [id number] Name: BOLA OLIVEROS Rep #: [id number] : 1965 60 From: Chapincito Mckenzie DO PCP: Dr. Shaniqua Harrington DO Status:DEP ER Location: ED HPI HPI - GI History of Present Illness Chief Complaint: Abd Pain Informant: parent and spouse/S.O. Narrative Narrative: 60-year-old male presenting to the emergency room with abdominal bloating/distention excessive gas and small bowel movements. Patient states 3 weeks ago he had a appendectomy. He states his bowel movements did not return to normal. He states he has been eating and eating the same foods as his does not have any symptoms. States his pants are fitting tighter. He notes his parents had complications with bowel obstructions and rupture. He denies any fever. No urinary symptoms. No diarrhea. [facility] Medical History Acute appendicitis Dyspnea on exertion Nicotine dependence Obesity Coronary artery disease Vitamin D deficiency Appetite loss 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] Right hand pain SOB (shortness of breath) Fatigue Heartburn Syncope and collapse Pulmonary hypertension BMI 40.0-44.9, adult EtOH dependence Elevated liver function tests Anxiety Insomnia Tobacco dependence Sleep apnea Essential hypertension Chest pain Nocturnal hypoxemia COPD (chronic obstructive pulmonary disease) Home Medications ???Medication ???Instructions ???Recorded ???Last Taken ???Type trazodone 50 mg tablet 150 mg PO QHS PRN insomnia 3 05/20/25 History aspirin 81 mg tablet,delayed 81 mg PO DAILY heart health 05/21/25 History release losartan 50 mg tablet 50 mg PO DAILY blood pressure 03/1205/20/25 History nitroglycerin 0.4 mg sublingual 0.4 mg sublingual Q5M PRN 04/08/23 Unknown Rx tablet Cardiac/Chest Pain #15 tabs clopidogrel 75 mg tablet 75 mg PO DAILY antiplatelet #90 05/21/25 Rx tabs metoprolol tartrate 50 mg tablet 50 mg PO BID heart #180 tabs 02/0905/21/25 Rx atorvastatin 10 mg tablet 10 mg PO QHS cholesterol #90 tabs 04/03/25 05/20/25 Rx magnesium 250 mg tablet 250 mg PO DAILY SUPPLEMENT 5 05/21/25 History multivitamin (Daily Multi-Vitamin 1 tab PO DAILY SUPPLEMENT 5 05/21/25 History tablet) sertraline 50 mg tablet 50 mg PO DAILY MOOD 04/23/2505/20 History Allergy/AdvReac Type Severity Reaction Status Date / Time No Known Allergies Allergy Verified 05/21/25 17:46 Family History Mother Diabetes Heart disease Sister Pulmonary hypertension Father Cancer stomach Heart disease Surgical History History of laparoscopic appendectomy Stented coronary artery Hx of cardiac catheterization ( 02/02/24) Hx of plastic surgery Social History household members: spouse Smoking Status: Current every day smoker tobacco type: cigarettes alcohol intake: current alcohol intake frequency: 3 or more drinks per day Alcohol type: beer details: 12 beer substance use type: does not use caffeine: No ROS ROS ED Constitutional Constitutional ED: Denies chills, fever(s) or weight loss Eyes Eyes: Denies change in vision or diplopia ENT ENT ED: Denies ear pain, rhinorrhea or sore throat Cardiovascular Cardiovascular: Denies chest pain, orthopnea, palpitations or racing heartbeat Respiratory/Chest Respiratory/Chest: Denies cough, dyspnea or orthopnea Gastrointestinal Gastrointestinal: Reports abdominal pain, constipation and other Details: Abdominal distention ; Denies diarrhea, nausea or vomiting Genitourinary Genitourinary ED: Denies dysuria, hematuria or urinary frequency Musculoskeletal Musculoskeletal: Denies arthralgias, back pain or myalgias Integumentary Denies abscess or rash Neurologic Neurologic: Denies headache(s) or weakness Psychiatric Psychiatric: Denies anxiety, depression, suicidal ideation or suicidal thoughts Endocrine Endocrinology: Denies polydipsia, polyphagia or polyuria Allergic/Immunologic Allergic/Immunologic ED: Denies mouth swelling, tongue swelling or urticaria EXAM Physical Exam Const Vital Signs: 05/21/25 17:47 05/21/25 19:46 05/21/25 21:00 Temperature 96.9 F L Temperature Source Temporal Pulse Rate 75 74 63 Respiratory Rate 18 18 18 Blood Pressure 131/73 H 130/64 H 123/54 H Blood Pressure Mean 92 86 77 Pulse Ox 99 97 96 Oxygen Delivery Method Room Air Room Air Room Air 05/21/25 22:05 Temperature 97.5 F L Temperature Sour (more content not included)... Normal [facility] Abdomen/Pelvis W IV Cont ONL Yon 05-21-2025 Abdomen/Pelvis W IV Cont ONLY [facility] Imaging Services [address] [place] [id number] Abdomen/Pelvis W IV Cont ONLY MR#: [id number] Acct: [id number] Name: BOLA OLIVEROS Rep #: [id number] : 1965 M 60 From: Dirk Martínez MD PCP: Dr. Shaniqua Harrington DO Status: REG ER Study: Abdomen/Pelvis W IV Cont ONLY Date of Exam: Exam# [id number] Ordering Dr: Chapincito Mckenzie DO PROCEDURE: ABDOMEN/PELVIS W IV CONT ONLY 05/21/2025 REASON FOR EXAM: ABDOMINAL PAIN AND DISTENTION TECHNIQUE: Procedure Code: [id number] Modality: CT Procedure: ABDOMEN/PELVIS W IV CONT ONLY Coronal and Sagittal reconstruction series were provided. CONTRAST: Isovue 370 VOLUME: 100 mL One or more dose reduction techniques were used (e.g., Automated exposure control, adjustment of the mA and/or kV according to patient size, use of iterative reconstruction technique. RADIATION DOSE SUMMARY: CTDlvol: 37 mGy DLP: 1415 mGycm COMPARISON: 04/23/2025 FINDINGS: Normal lumbar vertebral body height and alignment. No subluxation. No compression deformity. The lung bases are free of mass or consolidation. Normal appearance of the liver, gallbladder, portal vein, spleen, adrenal glands, and pancreas. No renal mass or hydronephrosis. Normal caliber abdominal aorta. No free air or free fluid. Negative for bowel obstruction, diverticulitis or abscess. The appendix contains an appendicolith but does not appear to be distended or inflamed. CT/Abdomen/Pelvis W IV Cont ONLY IMPRESSION: No acute abnormality is identified. The clinical history states appendectomy. On the current scan, the appendix is still present although the appendicitis seen previously is no longer present [facility] CC: Dr. Chapincito Mckenzie, DO; Dr. Shaniqua Harrington, DO [employer] Leader: Signed Normal [facility] CBC W/Diff, Automatedon 05-12 Absolute Lymph 2.27 X10 3/uL Normal 0.83-4.51 [facility] Comment on above: Performed By: #### L 100.0100, L501.2450, L500.4050 ####[facility] [address] [place], [address] Absolute Neut 4.8 X10 3/uL Normal 2.0-7.7 [facility] Comment on above: Performed By: #### L 100.0100, L501.2450, L500.4050 ####[facility] [id number] [place], [address] Basophils/100 WBC (Bld) 0.2 % Normal 0-1 [facility] Comment on above: Performed By: #### L 100.0100, L501.2450, L500.4050 ####[facility] [id number] [place], [address] Eosinophils/100 WBC (Bld) 5.0 % Normal 0-5 [facility] Comment on above: Performed By: #### L 100.0100, L501.2450, L500.4050 ####[facility] [id number] [place], [address] Erythrocyte distribution width (RBC) [Ratio] 12.6 % Normal 11.6-14.6 [facility] Comment on above: Performed By: #### L 100.0100, L501.2450, L500.4050 ####[facility] [id number] [place], [address] Hematocrit (Bld) [Volume fraction] 40.7 % Normal 40-54 [facility] Comment on above: Performed By: #### L 100.0100, L501.2450, L500.4050 ####[facility] [address] [place], [address] Hemoglobin (Bld) [Mass/Vol] 13.9 g/dL Normal 13.0-16.5 [facility] Comment on above: Performed By: #### L 100.0100, L501.2450, L500.4050 ####[facility] [address] [place], [address] IG% 1.000 High 0.0-0.9 [facility] Comment on above: Result Comment: IG% - Immature Granulocytes (promyelocytes, myelocytes and metamyelocytes) > 1% indicates that a LEFT SHIFT is Present. Performed By: #### L 100.0100, L501.2450, L500.4050 ####[facility] [address] [place], [address] Lymphocytes/100 WBC (Bld) 27.3 % Normal 19-41 [facility] Comment on above: Performed By: #### L 100.0100, L501.2450, L500.4050 ####[facility] [address] [place], [address] MCH (RBC) [Entitic mass] 30.8 pg Normal 27.0-32.0 [facility] Comment on above: Performed By: #### L 100.0100, L501.2450, L500.4050 ####[facility] [address] [place], [address] MCHC (RBC) [Mass/Vol] 34.2 g/dL Normal 32-36 [facility] Comment on above: Performed By: #### L 100.0100, L501.2450, L500.4050 ####[facility] [address] [place], [address] MCV (RBC) [Entitic vol] 90.2 fL Normal 80-94 [facility] Comment on above: Performed By: #### L 100.0100, L501.2450, L500.4050 ####[facility] [address] [place], [address] Monocytes/100 WBC (Bld) 8.6 % Normal 0-10 [facility] Comment on above: Performed By: #### L 100.0100, L501.2450, L500.4050 ####[facility] [address] [place], [address] Neutrophils/100 WBC (Bld) 57.9 % Normal 47-70 [facility] Comment on above: Performed By: #### L 100.0100, L501.2450, L500.4050 ####[facility] [address] [place], [address] Nucleated RBC (Bld) [#/Vol] 0 10*3/uL Normal 0-5 [facility] Comment on above: Performed By: #### L 100.0100, L501.2450, L500.4050 ####[facility] [address] [place], [address] Platelet mean volume (Bld) [Entitic vol] 11.3 fL Normal 6.2-12.0 [facility] Comment on above: Performed By: #### L 100.0100, L501.2450, L500.4050 ####[facility] [address] [place], [address] Platelets (Bld) [#/Vol] 151 10*3/uL Normal 150-450 [facility] Comment on above: Performed By: #### L 100.0100, L501.2450, L500.4050 ####[facility] [address] [place], [address] RBC (Bld) [#/Vol] 4.51 10*6/uL Low 4.6-6.2 [facility] Comment on above: Performed By: #### L 100.0100, L501.2450, L500.4050 ####[facility] [address] [place], [address] RDW SD 41.9 fl Normal 35.1-43.9 [facility] Comment on above: Performed By: #### L 100.0100, L501.2450, L500.4050 ####[facility] [address] [place], [address] WBC (Bld) [#/Vol] 8.3 10*3/uL Normal 4.4-11.0 [facility] Comment on above: Performed By: #### L 100.0100, L501.2450, L500.4050 ####[facility] [address] [place], [address] Comprehensive Metabolic Prof [facility] 05-21-2025 Albumin [Mass/Vol] 4.1 g/dL Normal 3.4-4.8 [facility] Comment on above: Performed By: #### L 100.0100, L501.2450, L500.4050 ####[facility] [address] [place], [address] Albumin/Globulin [Mass ratio] 1.5 {ratio} Normal 0.9-2.4 [facility] Comment on above: Performed By: #### L 100.0100, L501.2450, L500.4050 ####[facility] [address] [place], [address] ALK PHOS 52 U/L Normal 40-129 [facility] Comment on above: Performed By: #### L 100.0100, L501.2450, L500.4050 ####[facility] [address] [place], [address] ALT [Catalytic activity/Vol] 36 U/L Normal <=46 [facility] Comment on above: Performed By: #### L 100.0100, L501.2450, L500.4050 ####[facility] [address] [place], [address] AST [Catalytic activity/Vol] 26 U/L Normal <=37 [facility] Comment on above: Performed By: #### L 100.0100, L501.2450, L500.4050 ####[facility] [address] [place], [address] Bilirubin [Mass/Vol] 0.55 mg/dL Normal 0.00-1.30 [facility] Comment on above: Performed By: #### L 100.0100, L501.2450, L500.4050 ####[facility] [address] [place], [address] BUN/CRE 10.7 RATIO Normal 10-20 [facility] Comment on above: Performed By: #### L 100.0100, L501.2450, L500.4050 ####[facility] [address] [place], [address] Calcium [Mass/Vol] 9.3 mg/dL Normal 7.6-11.0 [facility] Comment on above: Performed By: #### L 100.0100, L501.2450, L500.4050 ####[facility] [address] [place], [address] Chloride [Moles/Vol] 96 mmol/L Low 98-108 [facility] Comment on above: Performed By: #### L 100.0100, L501.2450, L500.4050 ####[facility] [address] [place], [address] CO2 [Moles/Vol] 22.1 mmol/L Normal 21.0-32.0 [facility] Comment on above: Performed By: #### L 100.0100, L501.2450, L500.4050 ####[facility] [address] [place], [address] Creatinine [Mass/Vol] 0.69 mg/dL Low 0.70-1.20 [facility] Comment on above: Performed By: #### L 100.0100, L501.2450, L500.4050 ####[facility] [address] [place], [address] ECRCL 164.85 ml/min Normal 50-250 [facility] Comment on above: Performed By: #### L 100.0100, L501.2450, L500.4050 ####[facility] [address] [place], [address] GAP 12 Normal 5-15 [facility] Comment on above: Performed By: #### L 100.0100, L501.2450, L500.4050 ####[facility] [address] [place], [address] GFR/1.73 sq M.predicted among non-blacks MDRD (S/P/Bld) [Vol rate/Area] 106 mL/min/{1.73_m2} Normal >60 [facility] Comment on above: Result Comment: mL/m in/1.73m2 CKD-EPI Creatinine Equation (2020) Performed By: #### L 100.0100, L501.2450, L500.4050 ####[facility] [address] [place], [address] Globulin (S) [Mass/Vol] 2.7 g/dL Normal 2.2-4.2 [facility] Comment on above: Performed By: #### L 100.0100, L501.2450, L500.4050 ####[facility] [address] [place], [address] Glucose [Mass/Vol] 90 mg/dL Normal 70-99 [facility] Comment on above: Performed By: #### L 100.0100, L501.2450, L500.4050 ####[facility] [address] [place], [address] Potassium [Moles/Vol] 3.8 mmol/L Normal 3.3-5.1 [facility] Comment on above: Performed By: #### L 100.0100, L501.2450, L500.4050 ####[facility] [address] [place], [address] Sodium [Moles/Vol] 130 mmol/L Low 133-145 [facility] Comment on above: Performed By: #### L 100.0100, L501.2450, L500.4050 ####[facility] [address] [place], [address] T PROT 6.8 g/dL Normal 5.9-8.4 [facility] Comment on above: Performed By: #### L 100.0100, L501.2450, L500.4050 ####[facility] [address] [place], [address] Urea nitrogen [Mass/Vol] 7 mg/dL Normal 4-19 [facility] Comment on above: Performed By: #### L 100.0100, L501.2450, L500.4050 ####[facility] [address] [place], [address] Lipaseon 05-21-2025 Lipase [Catalytic activity/Vol] 42 U/L Normal 13-75 [facility] Comment on above: Result Comment: Singh whyte note: LIPASE revised reference range effective 22. New Lipase methodology. Expected to produce lower values than the previous assay method. NEW Reference Range: 13 - 75 U/L Performed By: #### L 100.0100, L501.2450, L500.4050 ####[facility] [address] [place], [address] Surgery Visit Reporton 05-08 Surgery Visit Report [facility] [address] [place] [address] OFFICE VISIT Date of Service: 05/08/25 MR#: [id number] Acct: [id number] Name: BOLA OLIVEROS Rep #: [id number] : 1965 Provider: NIRU allen Age/Sex: 60/M Location: [facility] Status: Signed Intake Vital Signs 04/23/25 15:45 Height 6 ft Intake Visit Reasons: APPY 04-24 Chief Complaint: F/U Lap Appy 04/23/25 Research Physician Required: No Accompanied by: Is patient in pain?: No Allergies No Known Allergies Allergy (Verified 05/08/25 12:56) Medications ???Medication ???Instructions ???Recorded ???Confirmed ???Type trazodone 50 mg tablet 150 mg PO QHS PRN insomnia 3 05/08/25 History aspirin 81 mg tablet,delayed 81 mg PO DAILY heart health 05/08/25 History release losartan 50 mg tablet 50 mg PO DAILY blood pressure 03/1205/08/25 History nitroglycerin 0.4 mg sublingual 0.4 mg sublingual Q5M PRN 04/08/23 05/08/25 Rx tablet Cardiac/Chest Pain #15 tabs clopidogrel 75 mg tablet 75 mg PO DAILY antiplatelet #90 05/08/25 Rx tabs ranolazine 500 mg tablet,extended 500 mg PO BID HEART #60 tabs /0 09/0505/08/25 Rx release,12 hr metoprolol tartrate 50 mg tablet 50 mg PO BID heart #180 tabs 02/0905/08/25 Rx atorvastatin 10 mg tablet 10 mg PO QHS cholesterol #90 tabs 04/03/25 05/08/25 Rx magnesium 250 mg tablet 250 mg PO DAILY SUPPLEMENT 05/08/25 History multivitamin (Daily Multi-Vitamin 1 tab PO DAILY SUPPLEMENT 5 05/08/25 History tablet) sertraline 50 mg tablet 50 mg PO DAILY MOOD 04/23/2505/08 History acetaminophen 325 mg tablet 650 mg (2 x 325 mg) PO Q4H PRN PRN 04/24/25 05/08/25 Rx Pain 1-10 Or Fever #0 tabs oxycodone 5 mg tablet 5 - 10 mg (1 - 2 x 5 mg) PO Q4H 05/08/25 Rx PRN PRN Pain Score 4-10 5 days #14 tabs Have you fallen in the past year?: No Subjective Details: Patient is a 60 y/o M I am following s/p laparoscopic appendectomy by Dr. Renteria on 04/23/25. Patient tolerated the procedure well. Patient denies any nausea, vomiting, fever. He notes appetite has returned to normal. He notes bowel habits have returned to normal. He notes feeling bloated. Pathology was reviewed with patient and demonstrated: MICROSCOPIC DIAGNOSIS A. Appendix, laparoscopic appendectomy: - Acute appendicitis with perforation, fecalith. - Acute serositis Objective Details: Abdomen- incisions c/d/i. No erythema or infection noted. Small hematoma noted at the umbilical incision. Coding Level of Care Code Global Post Op Diagnoses S/P appendectomy Z90.49 [facility] Medical History (Updated 05/08/25 @ 12:58 by Linsey Rock) Acute appendicitis Dyspnea on exertion Nicotine dependence Obesity Coronary artery disease Vitamin D deficiency Appetite loss 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] Right hand pain SOB (shortness of breath) Fatigue Heartburn Syncope and collapse Pulmonary hypertension BMI 40.0-44.9, adult EtOH dependence Elevated liver function tests Anxiety Insomnia Tobacco dependence Sleep apnea Essential hypertension Chest pain Nocturnal hypoxemia COPD (chronic obstructive pulmonary disease) Surgical History (Updated 05/08/25 @ 14:56 by Stephani LEWIS PA-C) History of laparoscopic appendectomy Stented coronary artery Hx of cardiac catheterization ( 02/02/24) Hx of plastic surgery Family History Mother Diabetes Heart disease Sister Pulmonary hypertension Father Cancer stomach Heart disease Social History household members: spouse Smoking Status: Current every day smoker tobacco type: cigarettes alcohol intake: current alcohol intake frequency: 3 or more drinks per day Alcohol type: beer details: 12 beer substance use type: does not use caffeine: No Assessment and Plan (No Qualifiers) Assessment and Plan (1) S/P appendectomy: Status: Acute Plan: Discussed signs of infection and when to contact our office No RTW letter needed Follow-up as needed 05/08/25 1457 Date Stephani LEWIS PA-C Cosigner Signature: Date (if applicable) CC: Dr. Shaniqua Harrington, DO Normal [facility] Surgical pathology reportOrd ered By: Florence Jason on 04-27-2025 Surgical pathology study [facility] Absolute lymphocyte countOrd ered By: Ace Renteria on 2025 Lymphocytes Auto (Unsp spec) [#/Vol] 1.10 10*3/uL 0.83-4.51 [facility] Absolute neutrophil countOrd ered By: Ace Renteria on 2025 Neutrophils (Bld) [#/Vol] 9.4 10*3/uL High 2.0-7.7 [facility] Anion gap in Serum or Plasma Ordered By: Ace Renteria on 2025 Anion gap [Moles/Vol] 9 mmol/L 5-15 [facility] Automated lymphocyte count a s percentage of total leukocytesOrdered By: Ace Renteria on 2025 Lymphocytes/100 WBC Auto (Unsp spec) 9.3 % Low [facility] BUN/creatinine ratioOrdered By: Ace Renteria on 2025 Urea nitrogen/Creatinine [Mass ratio] 10.9 mg/mg 04-30 [facility] Basic Metabolic Profile (BMP )on 2025 BUN/CRE 10.9 RATIO Normal 04-30 [facility] Comment on above: Performed By: #### L 100.0100, L500.2500 #### [facility] [address] [place], [address] Calcium [Mass/Vol] 8.5 mg/dL Normal 7.6-11.0 [facility] Comment on above: Performed By: #### L 100.0100, L500.2500 #### [facility] [address] [place], [address] Chloride [Moles/Vol] 103 mmol/L Normal 98-108 [facility] Comment on above: Performed By: #### L 100.0100, L500.2500 #### [facility] [address] [place], [address] CO2 [Moles/Vol] 23.3 mmol/L Normal 21.0-32.0 [facility] Comment on above: Performed By: #### L 100.0100, L500.2500 #### [facility] [address] [place], [address] Creatinine [Mass/Vol] 0.89 mg/dL Normal 0.70-1.20 [facility] Comment on above: Performed By: #### L 100.0100, L500.2500 #### [facility] [address] [place], [address] ECRCL 127.89 ml/min Normal 50-250 [facility] Comment on above: Performed By: #### L 100.0100, L500.2500 #### [facility] [address] [place], [address] GAP 9 Normal 5-15 [facility] Comment on above: Performed By: #### L 100.0100, L500.2500 #### [facility] [address] [place], [address] GFR/1.73 sq M.predicted among non-blacks MDRD (S/P/Bld) [Vol rate/Area] 98 mL/min/{1.73_m2} Normal >60 [facility] Comment on above: Result Comment: mL/m in/1.73m2 CKD-EPI Creatinine Equation (2020) Performed By: #### L 100.0100, L500.2500 #### [facility] [address] [place], [address] Glucose [Mass/Vol] 114 mg/dL High 70-99 [facility] Comment on above: Performed By: #### L 100.0100, L500.2500 #### [facility] [address] [place], [address] Potassium [Moles/Vol] 4.4 mmol/L Normal 3.3-5.1 [facility] Comment on above: Performed By: #### L 100.0100, L500.2500 #### [facility] [address] [place], [address] Sodium [Moles/Vol] 136 mmol/L Normal 133-145 [facility] Comment on above: Performed By: #### L 100.0100, L500.2500 #### [facility] [address] [place], [address] Urea nitrogen [Mass/Vol] 10 mg/dL Normal 4-19 [facility] Comment on above: Performed By: #### L 100.0100, L500.2500 #### [facility] [address] [place], [address] Basophil percentageOrdered B y: Ace Renteria on 2025 Basophils/100 WBC (Bld) 0.2 % 0-1 [facility] CBC W/Diff, Automatedon 04-11 Absolute Lymph 1.10 X10 3/uL Normal 0.83-4.51 [facility] Comment on above: Performed By: #### L 100.0100, L500.2500 #### [facility] [address] [place], [address] Absolute Neut 9.4 X10 3/uL High 2.0-7.7 [facility] Comment on above: Performed By: #### L 100.0100, L500.2500 #### [facility] [address] [place], [address] Basophils/100 WBC (Bld) 0.2 % Normal 0-1 [facility] Comment on above: Performed By: #### L 100.0100, L500.2500 #### [facility] [address] [place], [address] Eosinophils/100 WBC (Bld) 0.2 % Normal 0-5 [facility] Comment on above: Performed By: #### L 100.0100, L500.2500 #### [facility] [address] [place], [address] Erythrocyte distribution width (RBC) [Ratio] 12.9 % Normal 11.6-14.6 [facility] Comment on above: Performed By: #### L 100.0100, L500.2500 #### [facility] [address] [place], [address] Hematocrit (Bld) [Volume fraction] 38.9 % Low 40-54 [facility] Comment on above: Performed By: #### L 100.0100, L500.2500 #### [facility] [address] [place], [address] Hemoglobin (Bld) [Mass/Vol] 12.5 g/dL Low 13.0-16.5 [facility] Comment on above: Performed By: #### L 100.0100, L500.2500 #### [facility] [address] [place], [address] IG% 0.800 Normal 0.0-0.9 [facility] Comment on above: Result Comment: IG% - Immature Granulocytes (promyelocytes, myelocytes and metamyelocytes) > 1% indicates that a LEFT SHIFT is Present. Performed By: #### L 100.0100, L500.2500 #### [facility] [address] [place], [address] Lymphocytes/100 WBC (Bld) 9.3 % Low 19-41 [facility] Comment on above: Performed By: #### L 100.0100, L500.2500 #### [facility] [address] [place], [address] MCH (RBC) [Entitic mass] 30.6 pg Normal 27.0-32.0 [facility] Comment on above: Performed By: #### L 100.0100, L500.2500 #### [facility] [address] [place], [address] MCHC (RBC) [Mass/Vol] 32.1 g/dL Normal 32-36 [facility] Comment on above: Performed By: #### L 100.0100, L500.2500 #### [facility] [address] [place], [address] MCV (RBC) [Entitic vol] 95.3 fL High 80-94 [facility] Comment on above: Performed By: #### L 100.0100, L500.2500 #### [facility] [address] [place], [address] Monocytes/100 WBC (Bld) 10.1 % High 0-10 [facility] Comment on above: Performed By: #### L 100.0100, L500.2500 #### [facility] [address] [place], [address] Neutrophils/100 WBC (Bld) 79.4 % High 47-70 [facility] Comment on above: Performed By: #### L 100.0100, L500.2500 #### [facility] [address] [place], [address] Nucleated RBC (Bld) [#/Vol] 0 10*3/uL Normal 0-5 [facility] Comment on above: Performed By: #### L 100.0100, L500.2500 #### [facility] [address] [place], [address] Platelet mean volume (Bld) [Entitic vol] 11.0 fL Normal 6.2-12.0 [facility] Comment on above: Performed By: #### L 100.0100, L500.2500 #### [facility] [address] [place], [address] Platelets (Bld) [#/Vol] 142 10*3/uL Low 150-450 [facility] Comment on above: Performed By: #### L 100.0100, L500.2500 #### [facility] [address] [place], [address] RBC (Bld) [#/Vol] 4.08 10*6/uL Low 4.6-6.2 [facility] Comment on above: Performed By: #### L 100.0100, L500.2500 #### [facility] [address] [place], [address] RDW SD 45.3 fl High 35.1-43.9 [facility] Comment on above: Performed By: #### L 100.0100, L500.2500 #### [facility] [address] [place], [address] WBC (Bld) [#/Vol] 11.8 10*3/uL High 4.4-11.0 [facility] Comment on above: Performed By: #### L 100.0100, L500.2500 #### [facility] [address] [place], [address] Carbon dioxide, total [Moles /volume] in Central venous bloodOrdered By: Ace Renteria on 2025 CO2 [Moles/Vol] 23.3 mmol/L 21.0-32.0 [facility] Chloride assayOrdered By: Luisa Renteria on 2025 Chloride [Moles/Vol] 103 mmol/L 98-108 [facility] Electrocardiogram reportOrde red By: Denton Oneal on 2025 EKG study [facility] [address] [place] [address] 12 Lead EKG 04/23/25 1238 MR#: [id number] Acct: [id number] Name: BOLA OLIVEROS Rep #:[id number] : 1965 59 From: Denton Oneal MD Attending Dr: Dr. Ace Renteria MD Status: DIS SYBIL Ordering Dr: Felice Baltazar MD Date: 04/11 10/03 Location: [facility] Sex: M C Admitted: 04/23/25 Test Reason : PRE OP Blood Pressure : */* mmHG Vent. Rate : 76 BPM Atrial Rate : 76 BPM P-R Int : 150 ms QRS Dur : 86 ms QT Int : 392 ms P-R-T Axes : 55 40 48 degrees QTcB Int : 441 ms Normal sinus rhythm Normal ECG When compared with ECG of 21-Mar-2025 16:14, No significant change was found Confirmed by DENTON ONEAL MD ([id number]), editorial writer NICOLE ROJAS ([id number]) on 56:29:37 AM Referred By: Confirmed By: DENTON ONEAL MD 04/26/25 0629 Date _ Denton Oneal MD CC: Dr. Ace Renteria MD; Dr. Felice Baltazar MD; Dr. Shaniqua Harrington, DO ~ Signed [facility] Work Phone: Eosinophil percentageOrdered By: Ace Renteria on 2025 Eosinophils/100 WBC (Bld) 0.2 % 0-5 [facility] Erythrocyte distribution wid th ratioOrdered By: Ace Renteria on 2025 Erythrocyte distribution width (RBC) [Ratio] 12.9 % 11.6-14.6 [facility] Erythrocyte distribution wid th standard deviationOrdered By: Ace Renteria on 2025 Erythrocyte distribution width (RBC) [Ratio] 45.3 fl High 35.1-43.9 [facility] Glomerular filtration rate ( GFR) estimation/1.73 sq m using serum, plasma, or whole bOrdered By: Ace Renteria on 2025 GFR/1.73 sq M.predicted among non-blacks MDRD (S/P/Bld) [Vol rate/Area] 98 mL/min/{1.73_m2} >60 [facility] Comment on above: mL/min/1.73m2 CKD-EP I Creatinine Equation (2020) Hematocrit Auto (Bld) [Volum e fraction]Ordered By: Ace Renteria on 2025 Hematocrit (Bld) [Volume fraction] 38.9 % Low 40-54 [facility] Hemoglobin measurementOrdere d By: Ace Renteria on 2025 Hemoglobin (Bld) [Mass/Vol] 12.5 g/dL Low 13.0-16.5 [facility] Immature granulocytes/100 WB C Auto (Bld)Ordered By: Ace Renteria on 2025 Immature granulocytes/100 WBC (Bld) 0.800 % 0.0-0.9 [facility] Comment on above: IG% - Immature Granu locytes (promyelocytes, myelocytes and metamyelocytes) > 1% indicates that a LEFT SHIFT is Present. MCV (mean corpuscular volume ) determinationOrdered By: Ace Renteria on 2025 MCV (RBC) [Entitic vol] 95.3 fL High 80-94 [facility] Mean corpuscular hemoglobin (MCH) determinationOrdered By: Ace Renteria on 2025 MCH (RBC) [Entitic mass] 30.6 pg 27.0-32.0 [facility] Mean corpuscular hemoglobin concentration (MCHC) determinationOrdered By: Ace Renteria on 2025 MCHC (RBC) [Mass/Vol] 32.1 g/dL Invalid Interpretation Code 32-36 [facility] Comment on above: Delta: 34.4 on 04/23-999 Mean platelet volume determi nationOrdered By: Ace Renteria on 2025 Platelet mean volume (Bld) [Entitic vol] 11.0 fL 6.2-12.0 [facility] Monocyte percentageOrdered B y: Ace Renteria on 2025 Monocytes/100 WBC (Bld) 10.1 % High 0-10 [facility] Neutrophil percentageOrdered By: Ace Renteria on 2025 Neutrophils/100 WBC (Bld) 79.4 % High 47-70 [facility] Nucleated red blood cell per centageOrdered By: Ace Renteria on 2025 Nucleated RBC/100 WBC (Bld) [Ratio] 0 % 0-5 [facility] Platelet countOrdered By: Luisa Renteria on 2025 Platelets (Bld) [#/Vol] 142 10*3/uL Low 150-450 [facility] Potassium measurement (mass/ volume)Ordered By: Ace Renteria on 2025 Potassium (Unsp spec) [Mass/Vol] 4.4 mmol/L 3.3-5.1 [facility] RBC Auto (Bld) [#/Vol]Ordere d By: Ace Renteria on 2025 RBC (Bld) [#/Vol] 4.08 10*6/uL Low 4.6-6.2 [facility] Serum creatinine measurement (mass/volume)Ordered By: Ace Renteria on 2025 Creatinine [Mass/Vol] 0.89 mg/dL 0.70-1.20 [facility] Serum glucose measurement (m ass/volume)Ordered By: Ace Renteria on 2025 Glucose [Mass/Vol] 114 mg/dL High 70-99 [facility] Serum or plasma calcium maria de jesus urement (mass/volume)Ordered By: Ace Renteria on 2025 Calcium [Mass/Vol] 8.5 mg/dL 7.6-11.0 [facility] Serum or plasma urea nitroge n measurement (mass/volume)Ordered By: Ace Renteria on 2025 Urea nitrogen [Mass/Vol] 10 mg/dL 4-19 [facility] Sodium levelOrdered By: Ramona Renteria on 2025 Sodium [Moles/Vol] 136 mmol/L 133-145 [facility] White blood cell (WBC) count Ordered By: Ace Renteria on 2025 WBC (Bld) [#/Vol] 11.8 10*3/uL High 4.4-11.0 [facility] 12 Lead EKGon 04-23-2025 12 Lead EKG [facility] Cardiovascular Services [address] [place] [address] 12 Lead EKG 04/23/25 1238 MR#: [id number] Acct: [id number] Name: BOLA OLIVEROS Rep #: [id number] : 1965 59 From: Denton Oneal MD Attending Dr: Dr. Ace Renteria MD Status: DIS SYBIL Ordering Dr: Felice Baltazar MD Date: 04/23/25 Location: [facility] Sex: M C Admitted: 04/23/25 Test Reason : PRE OP Blood Pressure : */* mmHG Vent. Rate : 76 BPM Atrial Rate : 76 BPM P-R Int : 150 ms QRS Dur : 86 ms QT Int : 392 ms P-R-T Axes : 55 40 48 degrees QTcB Int : 441 ms Normal sinus rhythm Normal ECG When compared with ECG of 21-Mar-2025 16:14, No significant change was found Confirmed by NIKOLAI FRASER, DENTON ([id number]), editorial writer NICOLE ROJAS ([id number]) on 04/26/2025 6:29:37 AM Referred By: Confirmed By: DENTON ONEAL MD 04/26/25 0629 Date Denton Oneal MD CC: Dr. Ace Renteria MD; Dr. Felice Baltazar MD; Dr. Shaniqua Harrington DO Signed Normal [facility] Abdomen/Pelvis W IV Cont ONL Yon 04-23-2025 Abdomen/Pelvis W IV Cont ONLY [facility] Imaging Services [address] [place] [address] Abdomen/Pelvis W IV Cont ONLY MR#: [id number] Acct: [id number] Name: BOLA OLIVEROS Rep #: [id number] : 1965 M 59 From: Jas Ortiz MD PCP: Dr. Shaniqua Harrington DO Status: REG ER Study: Abdomen/Pelvis W IV Cont ONLY Date of Exam: Exam# [id number] Ordering Dr: Lloyd Gerard DO PROCEDURE: ABDOMEN/PELVIS W IV CONT ONLY 04/23/2025 REASON FOR EXAM: RIGHT LOWER QUADRANT ABDOMINAL PAIN TECHNIQUE: Procedure Code: CTABDPELIV Modality: CT Procedure: ABDOMEN/PELVIS W IV CONT ONLY Coronal and Sagittal reconstruction series were provided. CONTRAST: Isovue-300 VOLUME: 100 mL One or more dose reduction techniques were used (e.g., Automated exposure control, adjustment of the mA and/or kV according to patient size, use of iterative reconstruction technique. RADIATION DOSE SUMMARY: CTDlvol: 82 mGy DLP: 2525 mGycm COMPARISON: None FINDINGS: Lung bases: Mild dependent atelectasis. Coronary artery atherosclerosis. Liver: Mild fatty liver. Gallbladder: Normal Spleen: Normal Pancreas: Normal Adrenals: Normal Kidneys: Sub 5 mm cyst in the right mid to upper pole and right lower pole. No collecting system dilation, calculus or solid mass. Bladder: Normal Reproductive Organs: Normal Bowel: Small sliding hiatus hernia. Small bowel is normal. Numerous colonic diverticula are seen without diverticulitis. Appendix: There is significant stranding in the periappendiceal soft tissues. No phlegmon or abscess seen. A few reactive lymph nodes are seen in the ileocolic region. Lymph nodes: None appear enlarged. Vasculature: Severe atherosclerosis without aneurysm. Peritoneum / Retroperitoneum: No free air, free fluid or mass. Bones: Sclerotic focus in the L5 vertebral body on the right is likely a bone island. Small fat containing right inguinal hernia. CT/Abdomen/Pelvis W IV Cont ONLY IMPRESSION: 1. Mild fatty liver. 2. Acute, uncomplicated appendicitis. Significant amount of inflammatory changes shown in the periappendiceal fat. 3. Diverticulosis without diverticulitis. 4. Small fat containing right inguinal hernia. Reading Location: [id number] CC: Dr. Lloyd Gerard, DO; Dr. Shaniqua Harrington, DO [employer]: Signed Normal [facility] Bilirubin Test strip Ql (U)O rdered By: Lloyd Gerard on 04-23-2025 Bilirubin Ql (U) Negative Negative [facility] Bilirubin, totalOrdered By: Lloyd Gerard on 04-23-2025 Bilirubin [Mass/Vol] 0.98 mg/dL Normal 0.00-1.30 [facility] Comment on above: Performed By: #### L 500.4050, L100.0100, L501.2450 #### [facility] Laboratory [address] [place], [address] CBC W/Diff, Automatedon 04-11 Absolute Lymph 1.17 X10 3/uL Normal 0.83-4.51 [facility] Comment on above: Performed By: #### L 500.4050, L100.0100, L501.2450 #### [facility] [address] [place], [address] Absolute Neut 8.6 X10 3/uL High 2.0-7.7 [facility] Comment on above: Performed By: #### L 500.4050, L100.0100, L501.2450 #### [facility] [address] [place], [address] Basophils/100 WBC (Bld) 0.2 % Normal 0-1 [facility] Comment on above: Performed By: #### L 500.4050, L100.0100, L501.2450 #### [facility] [address] [place], [address] Eosinophils/100 WBC (Bld) 1.6 % Normal 0-5 [facility] Comment on above: Performed By: #### L 500.4050, L100.0100, L501.2450 #### [facility] [address] [place], [address] Erythrocyte distribution width (RBC) [Ratio] 12.6 % Normal 11.6-14.6 [facility] Comment on above: Performed By: #### L 500.4050, L100.0100, L501.2450 #### [facility] [address] [place], [address] Hematocrit (Bld) [Volume fraction] 40.7 % Normal 40-54 [facility] Comment on above: Performed By: #### L 500.4050, L100.0100, L501.2450 #### [facility] [address] [place], [address] Hemoglobin (Bld) [Mass/Vol] 14.0 g/dL Normal 13.0-16.5 [facility] Comment on above: Performed By: #### L 500.4050, L100.0100, L501.2450 #### [facility] [address] [place], [address] IG% 0.500 Normal 0.0-0.9 [facility] Comment on above: Result Comment: IG% - Immature Granulocytes (promyelocytes, myelocytes and metamyelocytes) > 1% indicates that a LEFT SHIFT is Present. Performed By: #### L 500.4050, L100.0100, L501.2450 #### [facility] [address] [place], [address] Lymphocytes/100 WBC (Bld) 10.4 % Low 19-41 [facility] Comment on above: Performed By: #### L 500.4050, L100.0100, L501.2450 #### [facility] [address] [place], [address] MCH (RBC) [Entitic mass] 31.4 pg Normal 27.0-32.0 [facility] Comment on above: Performed By: #### L 500.4050, L100.0100, L501.2450 #### [facility] [address] [place], [address] MCHC (RBC) [Mass/Vol] 34.4 g/dL Normal 32-36 [facility] Comment on above: Performed By: #### L 500.4050, L100.0100, L501.2450 #### [facility] [address] [place], [address] MCV (RBC) [Entitic vol] 91.3 fL Normal 80-94 [facility] Comment on above: Performed By: #### L 500.4050, L100.0100, L501.2450 #### [facility] [address] [place], [address] Monocytes/100 WBC (Bld) 10.4 % High 0-10 [facility] Comment on above: Performed By: #### L 500.4050, L100.0100, L501.2450 #### [facility] [address] [place], [address] Neutrophils/100 WBC (Bld) 76.9 % High 47-70 [facility] Comment on above: Performed By: #### L 500.4050, L100.0100, L501.2450 #### [facility] [address] [place], [address] Nucleated RBC (Bld) [#/Vol] 0 10*3/uL Normal 0-5 [facility] Comment on above: Performed By: #### L 500.4050, L100.0100, L501.2450 #### [facility] [address] [place], [address] Platelet mean volume (Bld) [Entitic vol] 10.7 fL Normal 6.2-12.0 [facility] Comment on above: Performed By: #### L 500.4050, L100.0100, L501.2450 #### [facility] [address] [place], [address] Platelets (Bld) [#/Vol] 157 10*3/uL Normal 150-450 [facility] Comment on above: Performed By: #### L 500.4050, L100.0100, L501.2450 #### [facility] [address] [place], [address] RBC (Bld) [#/Vol] 4.46 10*6/uL Low 4.6-6.2 [facility] Comment on above: Performed By: #### L 500.4050, L100.0100, L501.2450 #### [facility] [address] [place], [address] RDW SD 41.7 fl Normal 35.1-43.9 [facility] Comment on above: Performed By: #### L 500.4050, L100.0100, L501.2450 #### [facility] [address] [place], [address] WBC (Bld) [#/Vol] 11.2 10*3/uL High 4.4-11.0 [facility] Comment on above: Performed By: #### L 500.4050, L100.0100, L501.2450 #### [facility] [address] [place], [address] Comprehensive Metabolic Prof ilon 04-23-2025 ALK PHOS 52 U/L Normal 40-129 [facility] Comment on above: Performed By: #### L 500.4050, L100.0100, L501.2450 #### [facility] [address] [place], [address] BUN/CRE 8.7 RATIO Low 10-20 [facility] Comment on above: Performed By: #### L 500.4050, L100.0100, L501.2450 #### [facility] [address] [place], [address] Calcium [Mass/Vol] 9.1 mg/dL Normal 7.6-11.0 [facility] Comment on above: Performed By: #### L 500.4050, L100.0100, L501.2450 #### [facility] [address] [place], [address] Chloride [Moles/Vol] 102 mmol/L Normal 98-108 [facility] Comment on above: Performed By: #### L 500.4050, L100.0100, L501.2450 #### [facility] [address] [place], [address] CO2 [Moles/Vol] 24.1 mmol/L Normal 21.0-32.0 [facility] Comment on above: Performed By: #### L 500.4050, L100.0100, L501.2450 #### [facility] [address] [place], [address] Creatinine [Mass/Vol] 0.82 mg/dL Normal 0.70-1.20 [facility] Comment on above: Performed By: #### L 500.4050, L100.0100, L501.2450 #### [facility] [address] [place], [address] ECRCL 139.23 ml/min Normal 50-250 [facility] Comment on above: Performed By: #### L 500.4050, L100.0100, L501.2450 #### [facility] [address] [place], [address] GAP 10 Normal 5-15 [facility] Comment on above: Performed By: #### L 500.4050, L100.0100, L501.2450 #### [facility] [address] [place], [address] GFR/1.73 sq M.predicted among non-blacks MDRD (S/P/Bld) [Vol rate/Area] 101 mL/min/{1.73_m2} Normal >60 [facility] Comment on above: Result Comment: mL/m in/1.73m2 CKD-EPI Creatinine Equation (2020) Performed By: #### L 500.4050, L100.0100, L501.2450 #### [facility] [address] [place], [address] Glucose [Mass/Vol] 143 mg/dL High 70-99 [facility] Comment on above: Performed By: #### L 500.4050, L100.0100, L501.2450 #### [facility] [address] [place], [address] Potassium [Moles/Vol] 4.2 mmol/L Normal 3.3-5.1 [facility] Comment on above: Performed By: #### L 500.4050, L100.0100, L501.2450 #### [facility] [address] [place], [address] Sodium [Moles/Vol] 136 mmol/L Normal 133-145 [facility] Comment on above: Performed By: #### L 500.4050, L100.0100, L501.2450 #### [facility] [address] [place], [address] T PROT 7.0 g/dL Normal 5.9-8.4 [facility] Comment on above: Performed By: #### L 500.4050, L100.0100, L501.2450 #### [facility] [address] [place], [address] Urea nitrogen [Mass/Vol] 7 mg/dL Normal 4-19 [facility] Comment on above: Performed By: #### L 500.4050, L100.0100, L501.2450 #### [facility] [address] [place], [address] Comprehensive Metabolic Prof ilOrdered By: Lloyd Gerard on 04-23-2025 AST [Catalytic activity/Vol] 20 U/L Normal <=37 [facility] Comment on above: Performed By: #### L 500.4050, L100.0100, L501.2450 #### [facility] [address] [place], [address] Emergency Department Summary on 04-23-2025 Emergency Department Summary [facility] Medical Records Department [address] [place] [address] Emergency Department Summary 04/23/25 MR#: [id number] Acct: [id number] Name: BOLA OLIVEROS Rep #: [id number] : 1965 59 From: Lloyd Gerard DO PCP: Dr. Shaniqua Harrington, DO Status:[facility] Location: [place] [address] HPI History of Present Illness Chief Complaint: Abd Pain Narrative Narrative: Chief complaint and HPI: 59-year-old male with past medical history of CAD with PCI, HTN, HLD presents for evaluation of right lower quadrant abdominal pain. Onset of symptoms yesterday and radiates into his right testicle. Endorses constipation in which she has taken stool softeners with minimal relief. Endorses nausea. Has a history of constipation. Denies any fever, chills, shortness of breath, chest pain, vomiting, dysuria. No history of kidney stones. Review of systems: See HPI Medications: As listed on the chart Allergies: As listed on the chart PFSH: Per chart Vital signs: As listed on the chart. Reviewed. Physical exam: Gen: A O x3, NAD Head: Normocephalic, atraumatic Eyes: No sclera icterus, conjunctiva clear ENT: Moist mucous membranes Neck: Trachea midline CV: RRR, no murmurs Resp: Lungs CTA BL, no w/r/c GI: Abd soft, non-distended, tender to palpation in the right lower quadrant and suprapubic region, no rebound or rigidity : No CVA tenderness. Circumcised penis. No penile tenderness or discharge. No penile or testicular swelling. Normal lie and position of the testicles. Right testicle tender to palpation diffusely without masses or skin changes. Cremasteric reflexes intact and equal bilaterally. No rashes. No palpable hernias. Musc: Full ROM, no deformity Skin: Warm, dry Neuro: Alert, oriented, grossly intact, sensation intact Psych: Cooperative, appropriate mood and affect [facility] Medical History Dyspnea on exertion Nicotine dependence Obesity Coronary artery disease Vitamin D deficiency Appetite loss 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] Right hand pain SOB (shortness of breath) Fatigue Heartburn Syncope and collapse Pulmonary hypertension BMI 40.0-44.9, adult EtOH dependence Elevated liver function tests Anxiety Insomnia Tobacco dependence Sleep apnea Essential hypertension Chest pain Nocturnal hypoxemia COPD (chronic obstructive pulmonary disease) Home Medications ???Medication ???Instructions ???Recorded ???Last Taken ???Type trazodone 50 mg tablet 150 mg PO QHS PRN insomnia 3 04/22/25 History aspirin 81 mg tablet,delayed 81 mg PO DAILY heart health 04/23/25 History release losartan 50 mg tablet 50 mg PO DAILY blood pressure 03/1204/22/25 History nitroglycerin 0.4 mg sublingual 0.4 mg sublingual Q5M PRN 04/08/23 Unknown Rx tablet Cardiac/Chest Pain #15 tabs clopidogrel 75 mg tablet 75 mg PO DAILY antiplatelet #90 04/23/25 Rx tabs ranolazine 500 mg tablet,extended 500 mg PO BID HEART #60 tabs 05/09/0504/23/25 Rx release,12 hr metoprolol tartrate 50 mg tablet 50 mg PO BID heart #180 tabs 02/0904/23/25 Rx atorvastatin 10 mg tablet 10 mg PO QHS cholesterol #90 tabs 04/03/25 04/22/25 Rx magnesium 250 mg tablet 250 mg PO DAILY SUPPLEMENT 5 04/22/25 History multivitamin (Daily Multi-Vitamin 1 tab PO DAILY SUPPLEMENT 5 04/22/25 History tablet) sertraline 50 mg tablet 50 mg PO DAILY MOOD 04/23/2504/22 History Allergy/AdvReac Type Severity Reaction Status Date / Time No Known Allergies Allergy Verified 04/23/25 08:49 Family History Mother Diabetes Heart disease Sister Pulmonary hypertension Father Cancer stomach Heart disease Surgical History Stented coronary artery Hx of cardiac catheterization ( 02/02/24) Hx of plastic surgery Social History (Updated 03/21/25 @ 16:28 by Chauncey Cerda) household members: spouse Smoking Status: Current every day smoker tobacco type: cigarettes alcohol intake: current alcohol intake frequency: 3 or more drinks per day Alcohol type: beer details: 12 beer substance use type: does not use caffeine: No EXAM Physical Exam Const Vital Signs: 04/23/25 08:49 04/23/25 11:46 Temperature 99.0 F Temperature Source Oral Pulse Rate 86 70 Respiratory Rate 18 18 Blood Pressure 144/72 H 163/63 H Blood Pressure Mean 96 96 Pulse Ox 96 97 Oxygen Delivery Method Room Air Room Air MDM MDM MDM Narrative Medical decision making narrative: 59-year-old male with past medical history of CAD with PCI, HTN, HLD presents for evaluation of right lower q (more content not included)... Normal [facility] H AND P Exam - Surgicalon H&P Exam - Surgical [facility] Medical Records Department [address] [place] [address] H P Exam - Surgical 04/23/25 1241 MR#: [id number] Acct: [id number] Name: BOLA OLIVEROS Rep #: [id number] : 1965 59 From: Ace Renteria MD PCP: Dr. Shaniqua Harrington, DO Status:[facility] HPI - General HPI Narrative BOLA OLIVEROS, is a 59 M who presents with lower abdominal pain. Patient reports the pain started yesterday. He denies fevers or chills. Says the pain is in the right lower quadrant does radiate down to his right testicle. [facility] Medical History Dyspnea on exertion Nicotine dependence Obesity Coronary artery disease Vitamin D deficiency Appetite loss 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] Right hand pain SOB (shortness of breath) Fatigue Heartburn Syncope and collapse Pulmonary hypertension BMI 40.0-44.9, adult EtOH dependence Elevated liver function tests Anxiety Insomnia Tobacco dependence Sleep apnea Essential hypertension Chest pain Nocturnal hypoxemia COPD (chronic obstructive pulmonary disease) Home Medications ???Medication ???Instructions ???Recorded ???Last Taken ???Type trazodone 50 mg tablet 150 mg PO QHS PRN insomnia 3 04/22/25 History aspirin 81 mg tablet,delayed 81 mg PO DAILY heart health 04/23/25 History release losartan 50 mg tablet 50 mg PO DAILY blood pressure 03/1204/22/25 History nitroglycerin 0.4 mg sublingual 0.4 mg sublingual Q5M PRN 04/08/23 Unknown Rx tablet Cardiac/Chest Pain #15 tabs clopidogrel 75 mg tablet 75 mg PO DAILY antiplatelet #90 04/23/25 Rx tabs ranolazine 500 mg tablet,extended 500 mg PO BID HEART #60 tabs 05/09/0504/23/25 Rx release,12 hr metoprolol tartrate 50 mg tablet 50 mg PO BID heart #180 tabs 02/0904/23/25 Rx atorvastatin 10 mg tablet 10 mg PO QHS cholesterol #90 tabs 04/03/25 04/22/25 Rx magnesium 250 mg tablet 250 mg PO DAILY SUPPLEMENT 5 04/22/25 History multivitamin (Daily Multi-Vitamin 1 tab PO DAILY SUPPLEMENT 5 04/22/25 History tablet) sertraline 50 mg tablet 50 mg PO DAILY MOOD 04/23/2504/22 History Allergy/AdvReac Type Severity Reaction Status Date / Time No Known Allergies Allergy Verified 04/23/25 12:41 Family History Mother Diabetes Heart disease Sister Pulmonary hypertension Father Cancer stomach Heart disease Surgical History Stented coronary artery Hx of cardiac catheterization ( 02/02/24) Hx of plastic surgery Social History household members: spouse Smoking Status: Current every day smoker tobacco type: cigarettes alcohol intake: current alcohol intake frequency: 3 or more drinks per day Alcohol type: beer details: 12 beer substance use type: does not use caffeine: No ROS Constitutional Constitutional: Denies anorexia, chills, fatigue or fever(s) Eyes Eyes: Denies blurry vision ENT HEENT: Denies abnormal hearing Cardiovascular Cardiovascular: Reports chest pain Respiratory/Chest Respiratory/Chest: Reports dyspnea on exertion; Denies cough Gastrointestinal Gastrointestinal: Reports abdominal pain; Denies change in bowel habits, coffee ground emesis, nausea or vomiting Genitourinary Genitourinary: Denies change in urinary stream or difficulty urinating Musculoskeletal Musculoskeletal: Denies abnormal gait Integumentary Integumentary: Denies jaundice or new lesions Neurologic Neurologic: Denies abnormal gait Psychiatric Psychiatric: Denies anxiety Vital Signs Vital Signs Vital Signs: 04/23/25 08:49 04/23/25 11:46 04/23/25 12:11 Temperature 99.0 F Temperature Source Oral Pulse Rate 86 70 78 Respiratory Rate 18 18 18 Blood Pressure 144/72 H 163/63 H 149/62 H Blood Pressure Mean 96 96 91 Blood Pressure Source Monitor Blood Pressure Position Semi-Fowlers Blood Pressure Location Right Arm Pulse Ox 96 97 97 Oxygen Delivery Method Room Air Room Air Room Air 04/23/25 12:13 04/23/25 12:20 Temperature 98.3 F 98.3 F Temperature Source Pulse Rate 77 77 Respiratory Rate 18 18 Blood Pressure 149/62 H 149/62 H Blood Pressure Mean 91 Blood Pressure Source Blood Pressure Position Blood Pressure Location Pulse Ox 96 96 Oxygen Delivery Method Weight Weight: 302 lb 11.115 oz Body Mass Index (BMI) 41.0 Physical Exam Const oriented x3 and no apparent distress Resp normal respiratory effort Cardio regular rate and regular rhythm GI soft to palpation Palpation: tender RLQ Extremity n (more content not included)... Normal [facility] Ketones Test strip Ql (U)Ord ered By: Lloydnicky Gerard on 04-23-2025 Ketones Ql (U) Negative Negative [facility] Lipase measurementOrdered By : [facility] on 04-23-2025 Lipase [Catalytic activity/Vol] 25 U/L Normal 13-75 [facility] Comment on above: Please note:LIPASE r evised reference range effective 22. New Lipase methodology. Expected to produce lower values than the previous assay method. NEW Reference Range: 13 - 75 U/L Result Comment: Singh whyte note: LIPASE revised reference range effective 22. New Lipase methodology. Expected to produce lower values than the previous assay method. NEW Reference Range: 13 - 75 U/L Performed By: #### L 500.4050, L100.0100, L501.2450 #### [facility] Laboratory [address] [place], [address] MR/POSTOP.ANEgideon 04-23-2025 MR/POSTOP.[facility] Medical Records Department [address] [place] [address] Anesthesia Postop Eval I 04/23/25 1416 MR#: [id number] Acct: [id number] Name: BOLA OLIVEROS Rep #: [id number] : 1965 59 From: Cathy Grissom CRNA PCP: Dr. Shaniqua Harrington, DO Status:REG SDC Y Race: C Location: [place] [address] Anesthesia: Postop Eval I Current Vital Signs Temperature: 97 F Pulse Rate: 101 Blood Pressure: 159/109 Respiratory Rate: 20 Pulse Ox: 97 Oxygen Delivery Method: Nasal Cannula Oxygen Flow Rate (L/min): 8 Assessment Airway patent: Yes Spontaneous unlabored respirations: Yes Mental status: Awake nausea: No Vomiting: No Anesthesia Complication: No Fluid Hydration Crystalloid volume administer (ml): 700 Total IV fluid infused: 700 Progress Note Anesthesia document: Postop Eval 1 completed: Yes 04/23/25 1418 Date Cathy DeForeest MANAGER MAC Cosigner Signature: Date CC: Signed Normal [facility] MR/ZNKRAWYK0mh 04-23-2025 [facility] Medical Records Department [address] [place] [address] Anesthesia Postop Eval II 04/23/25 1422 MR#: [id number] Acct: [id number] Name: BOLA OLIVEROS Rep #: [id number] : 1965 59 From: Felice Baltazar MD PCP: Dr. Shaniqua Harrington, DO Status:REG SD Y Race: C Location: [place] [address] Anesthesia Postop Eval I Sum Postop Eval Completion status Anesthesia document: Postop Eval 1 completed: Yes Anesthesia Postop Eval I Summary Anesthesia Postop Eval I Summary: Anesthesia Postop Eval I: Assessment Summary Airway patent Yes 04/23/25 14:18 MANAGER MAC.JDEF Spontaneous unlabored Yes 04/23/25 14:18 MANAGER MAC.JDEF respirations Mental status Awake 04/23/25 14:18 MANAGER MAC.JDEF nausea No 04/23/25 14:18 MANAGER MAC.JDEF Vomiting No 04/23/25 14:18 MANAGER MAC.JDEF Anesthesia Postop Eval I: Fluid Summary Crystalloid volume administer 700 04/23/25 14:18 MANAGER MAC.JDEF (ml) Colloids volume administered ( ml) Blood Product volume administered (ml) Total IV fluid infused 700 10/13/25 14:18 MANAGER MAC.JDEF Anesthesia Postop Eval I: Summary Notes Anesthesia Complication No 04/23/25 14:18 MANAGER MAC.JDEF Anesthesia Complication Comment: Post-operative progress note Anesthesia: Postop Eval II Evaluation Mental status: Awake Pain Level: 2 nausea: No Vomiting: No 04/23/25 1422 Date Felice Herman Signature: Date CC: Signed Normal [facility] Microscopic analysis of urin e for red blood cells (RBC)Ordered By: Lloyd Gerard on 04-23-2025 Microscopic analysis of urine for red blood cells (RBC) 0-5 SEEN /hpf 0-5 [facility] Mucus LM Ql (Urine sed)Order ed By: Lloyd Gerard on 04-23-2025 Mucus Ql (Urine sed) RARE /hpf [facility] Nitrite Test strip Ql (U)Ord ered By: Lloyd Gerard on 04-23-2025 Nitrite Ql (U) Negative Negative [facility] Operative Reporton Operative Report [facility] Medical Records Department [address] [place] [address] Operative Report 04/23/25 1354 MR#: [id number] Acct: [id number] Name: BOLA OLIVEROS Rep #: [id number] : 1965 59 From: Ace Renteria MD PCP: Dr. Shaniqua Harrington, DO Status:REG [facility] Location: [place] [address] Operative Report (Standard) Operative Information Date of Procedure: 04/23/25 Pre-Operative Diagnosis: Acute appendicitis Post-Operative Diagnosis: Acute perforated appendicitis Surgery/Procedure Performed: Laparoscopic appendectomy bar host: Yes Vfx Artist: Ivania,Joseph L Tasks completed by business banking sales assistant: Opening closing Type of Anesthesia: General/Regional RN Documented Start/Stop Times: Operation Date: 04/23/25 13:55 Case Time Into Pre-Op 04/23/25 12:23 Anesthesia Start 04/23/25 13:01 Into Room 04/23/25 13:01 Out of Pre-Op 04/23/25 13:01 Procedure Start 04/23/25 13:24 Procedure Start Time: 13:24 Procedure Stop Time: 14:00 Select all DRAINS/GRAFTS/IMPLANT S that apply: None Estimated Blood Loss: 5 Specimen collected: Yes Description of specimen(s) removed: Appendix Description of surgery: The patient was brought into the operating room and general anesthesia was induced. The left arm was tucked and the abdomen was prepped and draped in usual sterile fashion. A small midline incision was made superior to the umbilicus and deepened to the level of the fascia. The fascia was elevated and incised. The peritoneum was also elevated and incised. A finger sweep was performed and a balloon trocar was placed into the abdomen and inflated. The abdomen was insufflated to 15 mmHg and the camera was inserted and the abdomen was inspected for any injuries upon entering the abdomen. There were none. The patient was placed in Trendelenburg position and a 5 mm ports placed in the left lower quadrant and suprapubic areas under direct visualization. Next using atraumatic bowel graspers the appendix was identified. The appendix was perforated at its midsection. There was stool oozing from it. The appendix was grasped and elevated and Enseal was used to take down the mesoappendix. A stapler was used to come across the base of the appendix. The appendix was then placed in Endo Catch bag and removed through the umbilical incision. The staple line was inspected and found to be hemostatic and intact. The 2 5 mm ports are removed under direct visualization. The balloon trocar was deflated and removed and all the air was removed from the abdomen. The umbilical incision fascia was closed with an 0 Vicryl [id number] suture. The incisions were then irrigated with saline and dried. Local anesthetic was injected into the incision sites. The skin incisions were then closed with interrupted 4-0 Monocryl suture and Steri- Strips. Bandages were applied and the patient was awoken and taken to PACU in stable condition. Patient tolerated the procedure well. Surgical Findings: Perforated appendicitis Complications Complications: No Admit VTE Documentation VTE Mechan Device Prophylaxis: SCD's 04/23/25 1355 Cosigner Signature (if applicable): CC: Dr. Ace Renteria MD; Dr. Shaniqua Harrington DO Signed Normal [facility] Protein Test strip Ql (U)Ord ered By: Lloyd Gerard on 04-23-2025 Protein Ql (U) 15 mg/dl High Negative [facility] Serum globulin measurementOr dered By: Lloyd Gerard on 04-23-2025 Globulin (S) [Mass/Vol] 3.0 g/dL Normal 2.2-4.2 [facility] Comment on above: Performed By: #### L 500.4050, L100.0100, L501.2450 #### [facility] Laboratory [address] [place], [address] Serum or plasma alanine ordaz otransferase (ALT) measurementOrdered By: Lloyd Gerard on 04-23-2025 ALT [Catalytic activity/Vol] 25 U/L Normal <=46 [facility] Comment on above: Performed By: #### L 500.4050, L100.0100, L501.2450 #### [facility] Laboratory [address] [place], [address] Serum or plasma albumin maria de jesus urement (mass/volume)Ordered By: Lloyd Alonso on 04-23-2025 Albumin [Mass/Vol] 4.0 g/dL Normal 3.5-5.0 [facility] Comment on above: Performed By: #### L 500.4050, L100.0100, L501.2450 #### [facility] Laboratory [address] [place], [address] Serum or plasma albumin/glob ulin mass ratioOrdered By: Lloyd Gerard on 04-23-2025 Albumin/Globulin [Mass ratio] 1.3 {ratio} Normal 0.9-2.4 [facility] Comment on above: Performed By: #### L 500.4050, L100.0100, L501.2450 #### [facility] [place], [address] Serum or plasma alkaline leonarda sphatase measurementOrdered By: Lloyd Gerard on 04-23-2025 ALP [Catalytic activity/Vol] 52 U/L 40-129 [facility] Squamous epithelial cells de tection in urine sediment by light microscopyOrdered By: Lloyd Gerard on 04-23-2025 Epithelial cells.squamous LM Ql (Urine sed) 0 SEEN /hpf 0-5 [facility] Surgery Specimen Level IIIon 04-23-2025 Surgery Specimen Level III -------- Patient Age/Sex Location Account Attending Physician -------- BOLA OLIVEROS 60/M MS3 [id number] Dr. Ace Renteria MD -------- Specimen: [id number] Received: 04/23/25 Status: NEGAR Foreman Num: [id number] Spec Type: APPENDIX Subm Dr: Dr. Ace Renteria MD HEADER OPERATION: Laparoscopic appendectomy PRE-OP DIAGNOSIS: Acute appendicitis TISSUE SUBMITTED: A- Appendix -------- MICROSCOPIC DIAGNOSIS A. Appendix, laparoscopic appendectomy: * Acute appendicitis with perforation, fecalith. * Acute serositis. MICROSCOPIC DESCRIPTION Slides are reviewed. GROSS DESCRIPTION A. Received in formalin labeled with the patient's name and date of . Designated as appendix is a 6.2 x 1.4 cm pink-red, shaggy appendix that is transected in the middle but held together by the copious amounts of attached mesoappendix. There is patchy fibrinous exudate, predominantly near the distal tip. The stapled margin is inked black and shaved. Sectioning reveals pink to dark red, soft and congested mucosa with a proximally located fecalith. 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 Ace Renteria MD -------- Signed (signature on file) Dr. Florence Jason MD 04/27/25 1442 -------- Normal [facility] Comment on above: Performed By: #### P SUIII ####[facility] [address] [place], [address] Testicular with Arterial Eligio won 04-23-2025 Testicular with Arterial Flow [facility] Imaging Services [address] [place], [place] [id number] Testicular with Arterial Flow MR#: [id number] Acct: [id number] Name: BOLA OLIVEROS Rep #: [id number] : 1965 M 59 From: Travon mason MD PCP: Dr. Shaniqua Harrington, Status: REG ER Study: Testicular with Arterial Flow Date of Exam: Exam# [id number] Ordering Dr: Lloyd Gerard DO PROCEDURE: TESTICULAR WITH ARTERIAL FLOW 04/23/2025 REASON FOR EXAM: RIGHT TESTICLE PAIN TECHNIQUE: Procedure Code: USTES Modality: US Procedure: TESTICULAR WITH ARTERIAL FLOW COMPARISON: None FINDINGS: RIGHT testicle: 4 cm x 2.9 cm x 2.3 cm It is of heterogeneous echotexture. Right epididymis: 0.7 cm 1.2 cm 1.1 cm. There is a epididymal cyst measuring 5 mm x 4 mm x 3 mm. LEFT testicle: 4.2 cm x 2.8 cm x 2 cm Homogeneous echotexture of the testicle. Left epididymis: 1.1 cm 1.5 cm 0.8 cm. There is a 0.4 cm 0.4 cm x 0.3 cm epididymal cyst. Other findings: Small bilateral hydroceles. US/Testicular with Arterial Flow IMPRESSION: No evidence of testicular torsion. Small bilateral epididymal cysts. Small bilateral hydroceles. Reading Location: [facility] CC: Dr. Lloyd Gerard, DO; Dr. Shaniqua Harrington, DO Lean Manufacturing Leader: Signed Normal [facility] Total proteinOrdered By: [place] Gerard on 04-23-2025 Protein [Mass/Vol] 7.0 g/dL 5.9-8.4 [facility] Urinalysis, Completeon 04-23 Mucus Ql (Urine sed) RARE Normal [facility] Comment on above: Order Comment: CLEAN CATCH Performed By: #### L 400.0001 #### [facility] Laboratory [address] [place], [address] RBC 0-5 SEEN Normal 0-5 [facility] Comment on above: Order Comment: CLEAN CATCH Performed By: #### L 400.0001 #### [facility] Laboratory [address] [place], [address] WBC 0-5 SEEN Normal 0-5 [facility] Comment on above: Order Comment: CLEAN CATCH Performed By: #### L 400.0001 #### [facility] Laboratory [address] [place], [address] BACTERIA 0 SEEN Normal None Seen [facility] Comment on above: Order Comment: CLEAN CATCH Performed By: #### L 400.0001 #### [facility] Laboratory [address] [place], [address] EPI,SQUAMOUS 0 SEEN Normal 0-5 [facility] Comment on above: Order Comment: CLEAN CATCH Performed By: #### L 400.0001 #### [facility] Laboratory [address] [place], [address] Urine clarityOrdered By: Washington Gerard on 04-23-2025 Clarity (U) Clear Clear [facility] Urine color determinationOrd ered By: Lloyd Gerard on 04-23-2025 Color (U) Yellow Yellow [facility] Urine glucose detectionOrder ed By: Lloyd Gerard on 04-23-2025 Glucose Ql (U) Normal mg/dl Normal [facility] Urine leukocyte esterase det ection by dipstickOrdered By: Lloyd Gerard on 04-23-2025 Leukocyte esterase Test strip Ql (U) Negative Negative [facility] Urine pHOrdered By: Lloyd Batista on 04-23-2025 pH (U) 7.0 [pH] 5.0 - 8.0 [facility] Urine sediment bacteria coun t by microscopy (number/high power field)Ordered By: Lloyd Gerard on 04-23-2025 Bacteria LM.HPF (Urine sed) [#/Area] 0 /[HPF] None Seen [facility] Urine specific gravity measu rementOrdered By: Lloyd Gerard on 04-23-2025 Specific gravity (U) [Rel density] 1.005 1.002-1.030 [facility] Urine urobilinogen measureme ntOrdered By: Lloyd Gerard on 04-23-2025 Urobilinogen Ql (U) Normal mg/dl Normal [facility] White blood cell countOrdere d By: Lloyd Gerard on 04-23-2025 White blood cell count 0-5 SEEN /hpf 0-5 [facility] Absolute lymphocyte countOrd ered By: Kanu Villafana on 03-21-2025 Lymphocytes Auto (Unsp spec) [#/Vol] 1.77 10*3/uL 0.83-4.51 [facility] Absolute neutrophil countOrd ered By: Kanu Villafana on 03-21-2025 Neutrophils (Bld) [#/Vol] 6.8 10*3/uL 2.0-7.7 [facility] Anion gap in Serum or Plasma Ordered By: Kanu Villafana on 03-21-2025 Anion gap [Moles/Vol] 13 mmol/L 5- [facility] Automated lymphocyte count a s percentage of total leukocytesOrdered By: Kanu Villafana on 03-21-2025 Lymphocytes/100 WBC Auto (Unsp spec) 17.6 % Low - [facility] BUN/creatinine ratioOrdered By: [facility] Villafana on 03-21-2025 Urea nitrogen/Creatinine [Mass ratio] 10.4 mg/mg - [facility] Basophil percentageOrdered B y: Kanu Villafana on 03-21-2025 Basophils/100 WBC (Bld) 0.4 % 0- [facility] Bilirubin, totalOrdered By: Kanu Villafana on 03-21-2025 Bilirubin [Mass/Vol] 0.76 mg/dL 0.00-1.30 [facility] CBC W/Diff, Automatedon 03-12 Absolute Lymph 1.77 X10 3/uL Normal 0.83-4.51 [facility] Comment on above: Performed By: #### L 100.0100, L501.4021, L500.4050, L300.8000 ####[facility] [address] [place], [address] Absolute Neut 6.8 X10 3/uL Normal 2.0-7.7 [facility] Comment on above: Performed By: #### L 100.0100, L501.4021, L500.4050, L300.8000 ####[facility] [address] [place], [address] Basophils/100 WBC (Bld) 0.4 % Normal 0-1 [facility] Comment on above: Performed By: #### L 100.0100, L501.4021, L500.4050, L300.8000 ####[facility] [address] [place], [address] Eosinophils/100 WBC (Bld) 4.7 % Normal 0-5 [facility] Comment on above: Performed By: #### L 100.0100, L501.4021, L500.4050, L300.8000 ####[facility] [address] [place], [address] Erythrocyte distribution width (RBC) [Ratio] 12.7 % Normal 11.6-14.6 [facility] Comment on above: Performed By: #### L 100.0100, L501.4021, L500.4050, L300.8000 ####[facility] [address] [place], [address] Hematocrit (Bld) [Volume fraction] 41.1 % Normal 40-54 [facility] Comment on above: Performed By: #### L 100.0100, L501.4021, L500.4050, L300.8000 ####[facility] [address] [place], [address] Hemoglobin (Bld) [Mass/Vol] 14.2 g/dL Normal 13.0-16.5 [facility] Comment on above: Performed By: #### L 100.0100, L501.4021, L500.4050, L300.8000 ####[facility] [address] [place], [address] IG% 1.200 High 0.0-0.9 [facility] Comment on above: Result Comment: IG% - Immature Granulocytes (promyelocytes, myelocytes and metamyelocytes) > 1% indicates that a LEFT SHIFT is Present. Performed By: #### L 100.0100, L501.4021, L500.4050, L300.8000 ####[facility] [address] [place], [address] Lymphocytes/100 WBC (Bld) 17.6 % Low 19-41 [facility] Comment on above: Performed By: #### L 100.0100, L501.4021, L500.4050, L300.8000 ####[facility] [address] [place], [address] MCH (RBC) [Entitic mass] 31.3 pg Normal 27.0-32.0 [facility] Comment on above: Performed By: #### L 100.0100, L501.4021, L500.4050, L300.8000 ####[facility] [address] [place], [address] MCHC (RBC) [Mass/Vol] 34.5 g/dL Normal 32-36 [facility] Comment on above: Performed By: #### L 100.0100, L501.4021, L500.4050, L300.8000 ####[facility] [address] [place], [address] MCV (RBC) [Entitic vol] 90.5 fL Normal 80-94 [facility] Comment on above: Performed By: #### L 100.0100, L501.4021, L500.4050, L300.8000 ####[facility] [address] [place], [address] Monocytes/100 WBC (Bld) 8.9 % Normal 0-10 [facility] Comment on above: Performed By: #### L 100.0100, L501.4021, L500.4050, L300.8000 ####[facility] [address] [place], [address] Neutrophils/100 WBC (Bld) 67.2 % Normal 47-70 [facility] Comment on above: Performed By: #### L 100.0100, L501.4021, L500.4050, L300.8000 ####[facility] [address] [place], [address] Nucleated RBC (Bld) [#/Vol] 0 10*3/uL Normal 0-5 [facility] Comment on above: Performed By: #### L 100.0100, L501.4021, L500.4050, L300.8000 ####[facility] [address] [place], [address] Platelet mean volume (Bld) [Entitic vol] 11.1 fL Normal 6.2-12.0 [facility] Comment on above: Performed By: #### L 100.0100, L501.4021, L500.4050, L300.8000 ####[facility] [address] [place], [address] Platelets (Bld) [#/Vol] 175 10*3/uL Normal 150-450 [facility] Comment on above: Performed By: #### L 100.0100, L501.4021, L500.4050, L300.8000 ####[facility] [address] [place], [address] RBC (Bld) [#/Vol] 4.54 10*6/uL Low 4.6-6.2 [facility] Comment on above: Performed By: #### L 100.0100, L501.4021, L500.4050, L300.8000 ####[facility] [address] [place], [address] RDW SD 42.0 fl Normal 35.1-43.9 [facility] Comment on above: Performed By: #### L 100.0100, L501.4021, L500.4050, L300.8000 ####[facility] [address] [place], [address] WBC (Bld) [#/Vol] 10.0 10*3/uL Normal 4.4-11.0 [facility] Comment on above: Performed By: #### L 100.0100, L501.4021, L500.4050, L300.8000 ####[facility] [address] [place], [place], [address] Carbon dioxide, total [Moles /volume] in Central venous bloodOrdered By: Kanu Villafana on 03-21-2025 CO2 [Moles/Vol] 22.6 mmol/L 21.0-32.0 [facility] Chest 1 View (Portable)on Chest 1 View (Portable) [facility] Imaging Services [address] [place], [place] [address] Chest 1 View (Portable) MR#: [id number] Acct: [id number] Name: BOLA OLIVEROS Rep #: [id number] : 1965 M 59 From: Owen Gonsalez MD PCP: JOY PabloC Status: [facility] ER Study: Chest 1 View (Portable) Date of Exam: 03/21/25 Exam# [id number] Ordering Dr: Kanu Villafana DO PROCEDURE: CHEST 1 VIEW (PORTABLE) 03/21/2025 REASON FOR EXAM: CHEST PAIN TECHNIQUE: Frontal view of the chest. COMPARISON: None. FINDINGS: Lungs/Pleura: Clear. No focal airspace consolidation, pneumothorax, or sizable pleural effusion. Mild central pulmonary vascular congestion. Heart/Mediastinum: Mildly enlarged, although likely exaggerated by technique. Bones/Soft tissues: No significant abnormality. RAD/Chest 1 View (Portable) IMPRESSION: Mild cardiomegaly with vascular congestion. No appreciable airspace consolidation or pleural effusion. Reading Location: [facility] CC: [facility] NURSE-C Gunjan Jimenez; Dr. Kanu Villafana DO Lean Manufacturing Leader: Signed Normal [facility] Chloride assayOrdered By: Maria C Villafana on 03-21-2025 Chloride [Moles/Vol] 96 mmol/L Low 98-108 [facility] Comprehensive Metabolic Prof ilon 09-10-2025 Albumin [Mass/Vol] 4.2 g/dL Normal 3.5-5.0 [facility] Comment on above: Performed By: #### L 100.0100, L501.4021, L500.4050, L300.8000 ####[facility] [address] [place], [address] Albumin/Globulin [Mass ratio] 1.3 {ratio} Normal 0.9-2.4 [facility] Comment on above: Performed By: #### L 100.0100, L501.4021, L500.4050, L300.8000 ####[facility] [address] [place], [address] ALK PHOS 57 U/L Normal 40-129 [facility] Comment on above: Performed By: #### L 100.0100, L501.4021, L500.4050, L300.8000 ####[facility] [address] [place], [address] ALT [Catalytic activity/Vol] 40 U/L Normal <=46 [facility] Comment on above: Performed By: #### L 100.0100, L501.4021, L500.4050, L300.8000 ####[facility] [address] [place], [address] AST [Catalytic activity/Vol] 32 U/L Normal <=37 [facility] Comment on above: Performed By: #### L 100.0100, L501.4021, L500.4050, L300.8000 ####[facility] [facility] [address] [place], [address] Bilirubin [Mass/Vol] 0.76 mg/dL Normal 0.00-1.30 [facility] Comment on above: Performed By: #### L 100.0100, L501.4021, L500.4050, L300.8000 ####[facility] [address] [place], [address] BUN/CRE 10.4 RATIO Normal 10-20 [facility] Comment on above: Performed By: #### L 100.0100, L501.4021, L500.4050, L300.8000 ####[facility] [address] [place], [address] Calcium [Mass/Vol] 9.4 mg/dL Normal 7.6-11.0 [facility] Comment on above: Performed By: #### L 100.0100, L501.4021, L500.4050, L300.8000 ####[facility] [address] [place], [address] Chloride [Moles/Vol] 96 mmol/L Low 98-108 [facility] Comment on above: Performed By: #### L 100.0100, L501.4021, L500.4050, L300.8000 ####[facility] [address] [place], [address] CO2 [Moles/Vol] 22.6 mmol/L Normal 21.0-32.0 [facility] Comment on above: Performed By: #### L 100.0100, L501.4021, L500.4050, L300.8000 ####[facility] [address] [place], [address] Creatinine [Mass/Vol] 0.84 mg/dL Normal 0.70-1.20 [facility] Comment on above: Performed By: #### L 100.0100, L501.4021, L500.4050, L300.8000 ####[facility] [address] [place], [address] GAP 13 Normal 5-15 [facility] Comment on above: Performed By: #### L 100.0100, L501.4021, L500.4050, L300.8000 ####[facility] [address] [place], [address] GFR/1.73 sq M.predicted among non-blacks MDRD (S/P/Bld) [Vol rate/Area] 100 mL/min/{1.73_m2} Normal >60 [facility] Comment on above: Result Comment: mL/m in/1.73m2 CKD-EPI Creatinine Equation (2020) Performed By: #### L 100.0100, L501.4021, L500.4050, L300.8000 ####[facility] [address] [place], [address] Globulin (S) [Mass/Vol] 3.1 g/dL Normal 2.2-4.2 [facility] Comment on above: Performed By: #### L 100.0100, L501.4021, L500.4050, L300.8000 ####[facility] [address] [place], [address] Glucose [Mass/Vol] 93 mg/dL Normal 70-99 [facility] Comment on above: Performed By: #### L 100.0100, L501.4021, L500.4050, L300.8000 ####[facility] [address] [place], [address] Potassium [Moles/Vol] 4.2 mmol/L Normal 3.3-5.1 [facility] Comment on above: Performed By: #### L 100.0100, L501.4021, L500.4050, L300.8000 ####[facility] [address] [place], [address] Sodium [Moles/Vol] 131 mmol/L Low 133-145 [facility] Comment on above: Performed By: #### L 100.0100, L501.4021, L500.4050, L300.8000 ####[facility] [address] [place], [address] T PROT 7.2 g/dL Normal 5.9-8.4 [facility] Comment on above: Performed By: #### L 100.0100, L501.4021, L500.4050, L300.8000 ####[facility] [address] [place], [address] Urea nitrogen [Mass/Vol] 9 mg/dL Normal 4-19 [facility] Comment on above: Performed By: #### L 100.0100, L501.4021, L500.4050, L300.8000 ####[facility] [address] [place], [address] D-Dimer Quantitative (DVT/PE )on 03-21-2025 D-DIMER QUANT 0.38 FEU/ug/m Normal 0.27-0.49 [facility] Comment on above: Result Comment: NORM AL D-Dimer level (<0.50) indicates no DVT or PE. Performed By: #### L 100.0100, L501.4021, L500.4050, L300.8000 ####[facility] [address] [place], [address] Emergency Department Summary on 03-21-2025 Emergency Department Summary [facility] Medical Records Department [address] [place] [address] Emergency Department Summary 03/21/25 MR#: [id number] Acct: [id number] Name: BOLA OLIVEROS Rep #: [id number] : 1965 59 From: Kanu Villafana DO PCP: Gunjan Jimenez NP-C Status:DEP ER Location: ED HPI History of Present Illness Chief Complaint: Chest Pain Detail of Chief Complaint: Chest pain Informant: patient and spouse/S.O. Narrative Narrative: Patient presents with chest discomfort and right side pain that started initially 3 days ago. Patient has had continuous discomfort. He states he is always short of breath. He said some nausea. Discomfort worse with movement. Pain is not pleuritic. Denies abdominal pain. Denies fever or recent illness. Denies recent travel or surgery. He has history of coronary artery disease with 8 total stents. Patient does not have history of PE or DVT. He is on aspirin and Plavix. Denies recent illness. Denies injury or trauma. [facility] Medical History Dyspnea on exertion Nicotine dependence Obesity Coronary artery disease Vitamin D deficiency Appetite loss 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] Right hand pain SOB (shortness of breath) Fatigue Heartburn Syncope and collapse Pulmonary hypertension BMI 40.0-44.9, adult EtOH dependence Elevated liver function tests Anxiety Insomnia Tobacco dependence Sleep apnea Essential hypertension Chest pain Nocturnal hypoxemia COPD (chronic obstructive pulmonary disease) Home Medications ???Medication ???Instructions ???Recorded ???Last Taken ???Type trazodone 50 mg tablet 150 mg PO QHS PRN insomnia 3 Unknown History aspirin 81 mg tablet,delayed 81 mg PO DAILY heart health 02/02/24 History release losartan 50 mg tablet 50 mg PO DAILY blood pressure 03/1202/02/24 History nitroglycerin 0.4 mg sublingual 0.4 mg sublingual Q5M PRN 04/08/23 Unknown Rx tablet Cardiac/Chest Pain #15 tabs sertraline 100 mg tablet 100 mg PO QDAY mood 12/10/23 Unkno wn History clopidogrel 75 mg tablet 75 mg PO DAILY antiplatelet #90 Unknown Rx tabs atorvastatin 10 mg tablet 10 mg PO QHS cholesterol #60 tabs 08/07/24 Unknown Rx ranolazine 500 mg tablet,extended 500 mg PO BID #60 tabs 11/10/24 U nknown Rx release,12 hr metoprolol tartrate 50 mg tablet 50 mg PO BID heart #180 tabs 02/09 03/05 Unknown Rx hydrocodone-acetamino phen 5-325mg 1 tab PO Q4H PRN PRN Pain 2 days 03/21/25 Unknown Rx 5mg-325mg #10 TABLETS Allergy/AdvReac Type Severity Reaction Status Date / Time No Known Allergies Allergy Verified 03/21/25 16:07 Family History Mother Diabetes Heart disease Sister Pulmonary hypertension Father Cancer stomach Heart disease Surgical History Stented coronary artery Hx of cardiac catheterization ( 02/02/24) Hx of plastic surgery Social History (Updated 03/21/25 @ 16:28 by Chauncey Cerda) household members: spouse Smoking Status: Current every day smoker tobacco type: cigarettes alcohol intake: current alcohol intake frequency: 3 or more drinks per day Alcohol type: beer details: 12 beer substance use type: does not use caffeine: No ROS ROS ED Review of Systems ROS Unobtainable: other Constitutional Constitutional ED: Reports lethargy; Denies chills, fever(s), sweats or weight loss Eyes Eyes: Denies blurry vision, change in vision or diplopia ENT ENT ED: Denies rhinorrhea or sore throat Cardiovascular Cardiovascular: Reports chest pain; Denies orthopnea or racing heartbeat Respiratory/Chest Respiratory/Chest: Reports dyspnea and dyspnea on exertion; Denies cough, orthopnea or sputum Gastrointestinal Gastrointestinal: Denies abdominal pain, diarrhea, nausea or vomiting Genitourinary Genitourinary ED: Denies dysuria, hematuria or urinary frequency Musculoskeletal Musculoskeletal: Denies arthralgias, back pain, myalgias or neck pain Integumentary Denies abscess, Abrasions or rash Neurologic Neurologic: Denies headache(s) or weakness Psychiatric Psychiatric: Denies anxiety, depression or suicidal thoughts Endocrine Endocrinology: Denies polydipsia, polyphagia or polyuria Hematologic/Lymphatic Hematologic/Lymphatic : Denies easy bleeding, easy bruising or lymphadenopathy Allergic/Immunologic Allergic/Immunologic ED: Denies mouth swelling, tongue swelling or urticaria EXAM Physical Exam Const Vital Signs: 03/21/25 16:05 03/21/25 16:29 03/21/25 16:49 Temperature 98.3 F Temperature Source Oral Pulse Rate 82 Respiratory Rate 18 Respiratory Effort Normal Non-Labored Respiratory Shelly (more content not included)... Normal [facility] Eosinophil percentageOrdered By: Kanu Villafana on 03-21-2025 Eosinophils/100 WBC (Bld) 4.7 % 0-5 [facility] Erythrocyte distribution wid th ratioOrdered By: Kanu Villafana on 03-21-2025 Erythrocyte distribution width (RBC) [Ratio] 12.7 % 11.6-14.6 [facility] Erythrocyte distribution wid th standard deviationOrdered By: Estelaus Ledy on 03-21-2025 Erythrocyte distribution width (RBC) [Ratio] 42.0 fl 35.1-43.9 [facility] Glomerular filtration rate ( GFR) estimation/1.73 sq m using serum, plasma, or whole bOrdered By: Kanu Villafana on 03-21-2025 GFR/1.73 sq M.predicted among non-blacks MDRD (S/P/Bld) [Vol rate/Area] 100 mL/min/{1.73_m2} >60 [facility] Comment on above: mL/min/1.73m2 CKD-EP I Creatinine Equation (2020) Hematocrit Auto (Bld) [Volum e fraction]Ordered By: Kanu Villafana on 03-21-2025 Hematocrit (Bld) [Volume fraction] 41.1 % 40-54 [facility] Hemoglobin measurementOrdere d By: Kanu Villafana on 03-21-2025 Hemoglobin (Bld) [Mass/Vol] 14.2 g/dL 13.0-16.5 [facility] Immature granulocytes/100 WB C Auto (Bld)Ordered By: Kanu Villafana on 03-21-2025 Immature granulocytes/100 WBC (Bld) 1.200 % High 0.0-0.9 [facility] Comment on above: IG% - Immature Granu locytes (promyelocytes, myelocytes and metamyelocytes) > 1% indicates that a LEFT SHIFT is Present. L501.4021on 03-21-2025 Trop T High Sen 7 ng/L Normal <=22 [facility] Comment on above: Performed By: #### L 100.0100, L501.4021, L500.4050, L300.8000 ####[facility] [address] [place], [place], [id number] Laboratory - Chemistry and C hemistry - challengeOrdered By: Kanu Villafana on 03-21-2025 AST [Catalytic activity/Vol] 32 U/L <38 [facility] MCV (mean corpuscular volume ) determinationOrdered By: Kanu Villafana on 03-21-2025 MCV (RBC) [Entitic vol] 90.5 fL 80-94 [facility] Mean corpuscular hemoglobin (MCH) determinationOrdered By: Kanu Villafana on 03-21-2025 MCH (RBC) [Entitic mass] 31.3 pg 27.0-32.0 [facility] Mean corpuscular hemoglobin concentration (MCHC) determinationOrdered By: Kanu Villafana on 03-21-2025 MCHC (RBC) [Mass/Vol] 34.5 g/dL 32-36 [facility] Mean platelet volume determi nationOrdered By: Kanu Villafana on 03-21-2025 Platelet mean volume (Bld) [Entitic vol] 11.1 fL 6.2-12.0 [facility] Monocyte percentageOrdered B y: Kanu Villafana on 03-21-2025 Monocytes/100 WBC (Bld) 8.9 % 0-10 [facility] Neutrophil percentageOrdered By: Kanu Villafana on 03-21-2025 Neutrophils/100 WBC (Bld) 67.2 % 47-70 [facility] Nucleated red blood cell per centageOrdered By: Kanu Villafana on 03-21-2025 Nucleated RBC/100 WBC (Bld) [Ratio] 0 % 0-5 [facility] Platelet countOrdered By: Maria C Villafana on 03-21-2025 Platelets (Bld) [#/Vol] 175 10*3/uL 150-450 [facility] Potassium measurement (mass/ volume)Ordered By: Kanu Villafana on 03-21-2025 Potassium (Unsp spec) [Mass/Vol] 4.2 mmol/L 3.3-5.1 [facility] RBC Auto (Bld) [#/Vol]Ordere d By: Kanu Villafana on 03-21-2025 RBC (Bld) [#/Vol] 4.54 10*6/uL Low 4.6-6.2 [facility] Serum creatinine measurement (mass/volume)Ordered By: Kanu Villafana on 03-21-2025 Creatinine [Mass/Vol] 0.84 mg/dL 0.70-1.20 [facility] Serum globulin measurementOr dered By: Kanu Villafana on 03-21-2025 Globulin (S) [Mass/Vol] 3.1 g/dL 2.2-4.2 [facility] Serum glucose measurement (m ass/volume)Ordered By: Kanu Villafana on 03-21-2025 Glucose [Mass/Vol] 93 mg/dL 70-99 [facility] Serum or plasma alanine ordaz otransferase (ALT) measurementOrdered By: Kanu Martinezalyssa on 03-21-2025 ALT [Catalytic activity/Vol] 40 U/L <47 [facility] Serum or plasma albumin maria de jesus urement (mass/volume)Ordered By: Kanu Martinezalyssa on 03-21-2025 Albumin [Mass/Vol] 4.2 g/dL 3.5-5.0 [facility] Serum or plasma albumin/glob ulin mass ratioOrdered By: Knau Martinezalyssa on 03-21-2025 Albumin/Globulin [Mass ratio] 1.3 {ratio} 0.9-2.4 [facility] Serum or plasma alkaline leonarda sphatase measurementOrdered By: Kanu Martinezalyssa on 03-21-2025 ALP [Catalytic activity/Vol] 57 U/L 40-129 [facility] Serum or plasma calcium maria de jesus urement (mass/volume)Ordered By: Kanu Martinezalyssa on 03-21-2025 Calcium [Mass/Vol] 9.4 mg/dL 7.6-11.0 [facility] Serum or plasma urea nitroge n measurement (mass/volume)Ordered By: Kanu Martinezalyssa on 03-21-2025 Urea nitrogen [Mass/Vol] 9 mg/dL 4-19 [facility] Sodium levelOrdered By: Estelalloyd josh Ledy on 03-21-2025 Sodium [Moles/Vol] 131 mmol/L Low 133-145 [facility] Total proteinOrdered By: Estela Martinezalyssa on 03-21-2025 Protein [Mass/Vol] 7.2 g/dL 5.9-8.4 [facility] Troponin T HS 2 HRon 025 Trop T High Sen Normal <=22 [facility] Comment on above: Result Comment: Khang teague via OM: Order cancelled - Patient discharged Performed By: #### L 499.0042 ####[facility] [address] [place], [address] Troponin T HS 4 HRon 025 Trop T High Sen Normal <=22 [facility] Comment on above: Result Comment: Canc elled via OM: Order cancelled - Patient discharged Performed By: #### L 499.0043 ####[facility] [address] [place], [address] Troponin T.cardiac [Mass/vol ume] in Serum or Plasma by High sensitivity methodOrdered By: Remus Ungalyssa on 03-21-2025 Troponin T.cardiac High sensitivity method [Mass/Vol] 7 ng/L <22 [facility] White blood cell (WBC) count Ordered By: Remus Ungur on 03-21-2025 WBC (Bld) [#/Vol] 10.0 10*3/uL 4.4-11.0 [facility] Cardiology Visit Reporton Cardiology Visit Report [facility] [address] [place] [address] OFFICE VISIT Date of Service: 11/10/24 MR#: [id number] Acct: [id number] Name: BOLA OLIVEROS Rep #: [id number] : 1965 Provider: JOSHUA Garcia Age/Sex: 59/M Location: [facility] Status: Signed HPI HPI History of Present Illness Details: Bloa Whiting is a 59 year old gentleman with a hx of CAD. He had a heart cath done in 03/2023 that demonstrated 60% prox LAD, 80% Prox LCX, 65% distal RCA. He had successful BRIDGETTE Prox LCX using Resolute [place] 3.0x18 mm. He was in the office in November after an ER visit at [facility] for CP november of 2024 for CP. He did have a stress test, this demonstrated mild inferoapical ischemia. He continued to have chest discomfort and underwent a diagnostic heart catheterization in January 2024. This demonstrated 70% stenosis of the mid LAD, 70% ISR proximal left circumflex, 70% mid circumflex, 65% distal right posterior lateral. He underwent stenting to his LAD. Patient did not tolerate amlodipine due to low blood pressure readings. He does still continue to have chest pain however this is different than what he had prior to his stenting. It is quick lasting. He has not thought about using any nitroglycerin. He still does have shortness of breath with exertion but feels that this is more related to his weight. He does have muscle aches and joint pains. He does not have any palpitations. He has not had any syncopal events. Intake Vital Signs 03/28/24 12:56 08/09/24 17:20 11/10/24 10:27 Height 6 ft 6 ft 6 ft Weight: 305 lb BMI 41.3 BP 154/75 H Blood Pressure Location Lt brachial Position Sitting Respiration 22 H Pulse 73 Pulse Source NIBP Intake Visit Reasons: 4 M Research Physician Required: No Accompanied by: Is patient in pain?: No Allergies No Known Allergies Allergy (Verified 11/10/24 10:31) Medications ???Medication ???Instructions ???Recorded ???Confirmed ???Type trazodone 50 mg tablet 150 mg PO QHS PRN insomnia 3 11/10/24 History aspirin 81 mg tablet,delayed 81 mg PO DAILY heart health 11/10/24 History release losartan 50 mg tablet 50 mg PO DAILY blood pressure 03/1211/10/24 History nitroglycerin 0.4 mg sublingual 0.4 mg sublingual Q5M PRN 04/08/23 11/10/24 Rx tablet Cardiac/Chest Pain #15 tabs sertraline 100 mg tablet 100 mg PO QDAY mood 12/10/2311/10 History metoprolol tartrate 50 mg tablet 50 mg PO BID heart #180 tabs 02/1011/10/24 Rx clopidogrel 75 mg tablet 75 mg PO DAILY antiplatelet #90 11/10/24 Rx tabs atorvastatin 10 mg tablet 10 mg PO QHS cholesterol #60 tabs 08/07/24 11/10/24 Rx ranolazine 500 mg tablet,extended 500 mg PO BID #60 tabs 11/10/24 0 11/10/24 Rx release,12 hr Ejection fraction %: 65 Have you fallen in the past year?: Yes (no major injuries) [facility] Medical History Dyspnea on exertion Nicotine dependence Obesity Coronary artery disease Vitamin D deficiency Appetite loss 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] Right hand pain SOB (shortness of breath) Fatigue Heartburn Syncope and collapse Pulmonary hypertension BMI 40.0-44.9, adult EtOH dependence Elevated liver function tests Anxiety Insomnia Tobacco dependence Sleep apnea Essential hypertension Chest pain Nocturnal hypoxemia COPD (chronic obstructive pulmonary disease) Surgical History Stented coronary artery Hx of cardiac catheterization ( 02/02/24) Hx of plastic surgery Family History Mother Diabetes Heart disease Sister Pulmonary hypertension Father Cancer stomach Heart disease Social History Smoking Status: Current every day smoker tobacco type: cigarettes alcohol intake: current alcohol intake frequency: 3 or more drinks per day Alcohol type: beer details: 12 beer substance use type: does not use caffeine: No ROS Const Const: Positive for fatigue (improved) and difficulty sleeping ( related to sleep apnea); Negative for weakness, headache(s) or weight gain ENT ENT: Negative for headache(s), dizziness, Nosebleed/epistaxis or balance problems Cardio Chest Pain: Yes Frequency: other (sporadic) Character: dull Onset: other (sporadic) Location: mid sternal Duration: minutes (10-15mins) Exacerbation: exercise Relieving: rest Palpitations: No Edema: None Muscle aches with walking: None Resp Respiratory: Positive for SOB with activity and SOB at rest; Negative for SOB orthopnea SOB lying down GI GI: Positive for heartburn; (more content not included)... Normal [facility] .Auto Diffon 08-23-2024 Basophil, Absolute 0.0 10 3/mcL Normal 0.0-0.2 [facility] Comment on above: Performed By: #### C BC, GFR, JAS STARKS, ANEU, CMP, MG, PBNP, TROPHS #### [id number] [place], [place] [address] Basophils/100 WBC (Bld) 0.3 % Normal 0.0-2.5 [facility] Comment on above: Performed By: #### C BC, GFR, JAS STARKS, ANEU, CMP, MG, PBNP, TROPHS #### [address] [address] Eosinophil, Absolute 0.4 10 3/mcL Normal 0.0-0.7 [facility] Comment on above: Performed By: #### C BC, GFR, ADIFF, MDW, ANEU, CMP, MG, PBNP, TROPHS #### [address] [address] Eosinophils/100 WBC (Bld) 7.3 % High 0.0-7.0 [facility] Comment on above: Performed By: #### C BC, GFR, ADIFF, MDW, ANEU, CMP, MG, PBNP, TROPHS #### [address] [address] Lymphocyte, Absolute 0.8 10 3/mcL Low 0.9-4.3 [facility] Comment on above: Performed By: #### C BC, GFR, ADIFF, MDW, ANEU, CMP, MG, PBNP, TROPHS #### [address] [address] Lymphocytes/100 WBC (Bld) 15.1 % Low 20.0-40.0 [facility] Comment on above: Performed By: #### C BC, GFR, ADIFF, MDW, ANEU, CMP, MG, PBNP, TROPHS #### [address] [address] Monocyte, Absolute 0.6 10 3/mcL Normal 0.1-1.4 [facility] Comment on above: Performed By: #### C BC, GFR, ADIFF, MDW, ANEU, CMP, MG, PBNP, TROPHS #### [address] [address] Monocytes/100 WBC (Bld) 11.2 % Normal 2.0-13.0 [facility] Comment on above: Performed By: #### C BC, GFR, ADIFF, MDW, ANEU, CMP, MG, PBNP, TROPHS #### [address] [address] Neutrophils/100 WBC (Bld) 66.1 % Normal 50.0-75.0 [facility] Comment on above: Performed By: #### C BC, GFR, ADIFF, MDW, ANEU, CMP, MG, PBNP, TROPHS #### [address] [address] .GFRon 08-23-2024 Estimated Glomerular Filtration Rate 101 ml/min/1.73sqm Normal [facility] Comment on above: Result Comment: Stages of Chronic Kidney Disease (CKD) Stage Description eGFR(ml/min/1.73 sq.m.) CKD 1 Normal kidney function or >=90 normal kindney function with possible kidney damage (ex. Proteinuria) CKD 2 Kidney damage with mild loss 60-89 of kidney function CKD 3a Mild to moderate loss of kidney 45-59 function CKD 3b Moderate to severe loss of 30-44 of kindey function CKD 4 Severe loss of kidney function 15-29 CKD 5 Kidney failure <15 Note: (go live 2024) the eGFR calculation was updated to the 2020 CKD-EPI creatinine equation without a race factor to calculate the eGFR results. Performed By: #### T [facility] #### [address] [address] .MDWon 08-23-2024 Monocyte Distribution Width 23.54 High 0.00-20.00 [facility] Comment on above: Result Comment: For adults in ED, MDW>20.0 may be associated with a higher risk of sepsis during the first 12hrs of hospital admission Performed By: #### C BC, GFR, ADIFF, MDW, ANEU, CMP, MG, PBNP, TROPHS #### [address] [address] .NEUABSon 08-23-2024 Neutrophil, Absolute 3.3 10 3/mcL Normal 2.3-8.1 [facility] Comment on above: Performed By: #### C BC, GFR, ADIFF, MDW, ANEU, CMP, MG, PBNP, TROPHS #### [address] [address] CBCon 08-23-2024 Erythrocyte distribution width (RBC) [Ratio] 13.2 % Normal 11.5-15.5 [facility] Comment on above: Performed By: #### C BC, GFR, ADIFF, MDW, ANEU, CMP, MG, PBNP, TROPHS #### [address] [address] Hematocrit (Bld) [Volume fraction] 42.4 % Normal 40.0-52.0 [facility] Comment on above: Performed By: #### C BC, GFR, ADIFF, MDW, ANEU, CMP, MG, PBNP, TROPHS #### [address] [address] Hgb 14.6 G/dL Normal 13.0-17.5 [facility] Comment on above: Performed By: #### C BC, GFR, ADIFF, MDW, ANEU, CMP, MG, PBNP, TROPHS #### [place] [address] MCH (RBC) [Entitic mass] 31.2 pg Normal 27.0-33.0 [facility] Comment on above: Performed By: #### C BC, GFR, ADIFF, MDW, ANEU, CMP, MG, PBNP, TROPHS #### [address] [address] MCHC 34.4 G/dL Normal 32.0-36.0 [facility] Comment on above: Performed By: #### C BC, GFR, ADIFF, MDW, ANEU, CMP, MG, PBNP, TROPHS #### [address] [address] MCV (RBC) [Entitic vol] 90.6 fL Normal 81.0-100.0 [facility] Comment on above: Performed By: #### C BC, GFR, ADIFF, MDW, ANEU, CMP, MG, PBNP, TROPHS #### [address] [address] Platelet 112 10 3/mcL Low 150-450 [facility] Comment on above: Performed By: #### C BC, GFR, ADIFF, MDW, ANEU, CMP, MG, PBNP, TROPHS #### [address] [address] Platelet mean volume (Bld) [Entitic vol] 9.4 fL Normal 6.4-10.5 [facility] Comment on above: Performed By: #### C BC, GFR, ADIFF, MDW, ANEU, CMP, MG, PBNP, TROPHS #### [address] [id number] RBC 4.68 10 6/mcL Normal 4.50-6.00 [facility] Comment on above: Performed By: #### C BC, GFR, ADIFF, MDW, ANEU, CMP, MG, PBNP, TROPHS #### [address] [address] WBC 5.0 10 3/mcL Normal 4.5-10.8 [facility] Comment on above: Performed By: #### C BC, GFR, ADIFF, MDW, ANEU, CMP, MG, PBNP, TROPHS #### [address] [address] CMPon 08-23-2024 Albumin Level 3.4 G/dL Low 3.5-5.0 [facility] Comment on above: Performed By: #### C BC, GFR, ADIFF, MDW, ANEU, CMP, MG, PBNP, TROPHS #### [address] [address] Albumin/Globulin [Mass ratio] 0.9 {ratio} Low 1.1-2.5 [facility] Comment on above: Performed By: #### C BC, GFR, ADIFF, MDW, ANEU, CMP, MG, PBNP, TROPHS #### [address] [address] ALP [Catalytic activity/Vol] 59 U/L Normal 40-135 [facility] Comment on above: Performed By: #### C BC, GFR, ADIFF, MDW, ANEU, CMP, MG, PBNP, TROPHS #### [address] [address] ALT [Catalytic activity/Vol] 50 U/L Normal 16-63 [facility] Comment on above: Performed By: #### C BC, GFR, ADIFF, MDW, ANEU, CMP, MG, PBNP, TROPHS #### [address] [address] AST [Catalytic activity/Vol] 38 U/L Normal 10-40 [facility] Comment on above: Performed By: #### C BC, GFR, ADIFF, MDW, ANEU, CMP, MG, PBNP, TROPHS #### [address] [address] Bili Total 0.4 mg/dL Normal 0.2-1.0 [facility] Comment on above: Result Comment: Use of this assay is not recommended for patients undergoing treatment with eltrombopag due to the potential for falsely elevated results. Performed By: #### C BC, GFR, ADIFF, MDW, ANEU, CMP, MG, PBNP, TROPHS #### [address] [address] BUN/Creatinine Ratio 10 ratio Normal 7-27 [facility] Comment on above: Performed By: #### C BC, GFR, ADIFF, MDW, ANEU, CMP, MG, PBNP, TROPHS #### [address] [address] Calcium [Mass/Vol] 8.8 mg/dL Normal 8.4-10.2 [facility] Comment on above: Performed By: #### C BC, GFR, ADIFF, MDW, ANEU, CMP, MG, PBNP, TROPHS #### [address] [address] Chloride [Moles/Vol] 102 mmol/L Normal 98-107 [facility] Comment on above: Performed By: #### C BC, GFR, ADIFF, MDW, ANEU, CMP, MG, PBNP, TROPHS #### [address] [address] CO2 [Moles/Vol] 24 mmol/L Normal 22-29 [facility] Comment on above: Performed By: #### C BC, GFR, ADIFF, MDW, ANEU, CMP, MG, PBNP, TROPHS #### [address] [address] Creatinine [Mass/Vol] 0.82 mg/dL Normal 0.70-1.30 [facility] Comment on above: Result Comment: Test ing performed on DATY Dimension EXL analyzer using a modified kinetic Hector technique. Performed By: #### C BC, GFR, ADIFF, MDW, ANEU, CMP, MG, PBNP, TROPHS #### [address] [address] Electrolyte Balance 10.0 mEq/L Normal 4.0-15.0 [facility] Comment on above: Performed By: #### C BC, GFR, ADIFF, MDW, ANEU, CMP, MG, PBNP, TROPHS #### [address] [address] Globulin 3.8 G/dL Normal 1.5-3.8 [facility] Comment on above: Performed By: #### C BC, GFR, ADIFF, MDW, ANEU, CMP, MG, PBNP, TROPHS #### [address] [address] Glucose [Mass/Vol] 150 mg/dL High 70-105 [facility] Comment on above: Performed By: #### C BC, GFR, ADIFF, MDW, ANEU, CMP, MG, PBNP, TROPHS #### [address] [address] Potassium [Moles/Vol] 4.2 mmol/L Normal 3.5-5.1 [facility] Comment on above: Performed By: #### C BC, GFR, ADIFF, MDW, ANEU, CMP, MG, PBNP, TROPHS #### [address] [address] Sodium [Moles/Vol] 136 mmol/L Normal 136-145 [facility] Comment on above: Performed By: #### C BC, GFR, ADIFF, MDW, ANEU, CMP, MG, PBNP, TROPHS #### [address] [place] [place], [place] [address] Total Protein 7.2 G/dL Normal 6.4-8.2 [facility] Comment on above: Performed By: #### C BC, GFR, ADIFF, MDW, ANEU, CMP, MG, PBNP, TROPHS #### [address] [place], [place] [address] Urea nitrogen [Mass/Vol] 8 mg/dL Normal 7-18 [facility] Comment on above: Performed By: #### C BC, GFR, ADIFF, MDW, ANEU, CMP, MG, PBNP, TROPHS #### [address] [place], [place] [address] CT THORAX W/O CONTRASTon CT THORAX W/O CONTRAST ORIGINAL EXAMINATION: CT OF THE CHEST WITHOUT CONTRAST 08/23/2024 9:47 am TECHNIQUE: CT of the chest was performed without the administration of intravenous contrast. Multiplanar reformatted images are provided for review. Automated exposure control, iterative reconstruction, and/or weight based adjustment of the mA/kV was utilized to reduce the radiation dose to as low as reasonably achievable. COMPARISON: Chest x-ray same day, multiple prior chest x-rays. HISTORY: ORDERING SYSTEM PROVIDED HISTORY: Reason for Exam: nodule--recommended FINDINGS: Thyroid is unremarkable. Esophagus is normal in caliber. Heart is normal in size without pericardial effusion. Great vessels are normal in caliber. Moderate atherosclerotic calcifications are noted within the thoracic aorta. Multivessel coronary artery calcifications and/or stents are noted. There are a couple calcified nonenlarged mediastinal and bilateral hilar lymph nodes. No pathologically enlarged mediastinal, hilar or axillary lymph nodes. Trachea and mainstem bronchi are patent. Mild emphysema with scattered bilateral pleural and parenchymal scarring. There are scattered bilateral somewhat nodular ground-glass opacities particularly within the right upper lobe and right middle lobe. A ground-glass opacity within the right anterior upper lobe measures approximately 2.9 cm. A left lower lobe ground-glass nodule measures 1.6 cm. A medial right lower lobe ground-glass nodule measures 1.5 cm. No focal consolidation, pleural effusion or pneumothorax. Couple calcified granulomas within the left lower lobe. Decreased attenuation within the liver is most consistent with hepatic steatosis. There is likely mild splenomegaly. Otherwise, images through the upper abdomen are noncontributory. No aggressive osseous lesions. Mild multilevel degenerative changes throughout the visualized spine. IMPRESSION: Scattered bilateral somewhat nodular ground-glass opacities, particularly within the right upper lobe and right middle lobe, are presumably infectious/inflammato ry in etiology. Recommend CT thorax follow-up in 8-12 weeks to ensure resolution. Mild emphysema. Hepatic steatosis. Interpreted by: Chapincito Horta Preliminary Report By: Chapincito Horta Electronically signed By Chapincito Horta Dictated Date: 08/23/2024 9:53:24 AM Prelim Date: 08/23/2024 10:02:57 AM Sign Date: 08/23/2024 10:02:57 AM Ordering Provider: ROSA ELENA PALACIOS Normal [facility] CVFLURVon 08-23-2024 FLU A PCR Positive Abnormal Negative [facility] Comment on above: Performed By: #### T LEE #### [place] [address] FLU B PCR Negative Normal Negative [facility] Comment on above: Performed By: #### T LEE #### [place] [address] RSV PCR Negative Normal Negative [facility] Comment on above: Performed By: #### T [facility] #### [place] [address] SARS-CoV-2 (COVID-19) RNA GABI+probe Ql (Unsp spec) Negative Normal Negative [facility] Comment on above: Result Comment: Resu lts from the Xpert Xpress CoV-2/Flu/RSV plus test should be correlated with the clinical history, epidemiological data, and other data available to the clinical evaluating the patient. Performance of the Xpert Xpress CoV-2/Flu/RSV plus test has only been established in nasopharyngeal swab specimen. Erroneous test results might occur from improper specimen collection, failure to follow the recommended sample collection, handling and storage procedures, technical error, or sample mix-up. False negative results may occur if a virus is present at a level below the analytical limit of detection. Viral nucleic acid may persist in vivo, independent of virus viability. Detection of analyte target(s) does not imply that the corresponding virus(es) are infectious or are the causative agents for clinical symptoms. Recent patient exposure to FluMist or other live attenuated influenza vaccines may cause inaccurate positive results. Performed By: #### T [facility] #### [place] [address] LABORATORYOrdered By: SYSTEM SYSTEM on 08-23-2024 Troponin I.cardiac DL <= 0.01 ng/mL [Mass/Vol] 4 ng/L Normal 0 - 76 ng/L AO ADM SS Comment on above: Interpretive Data: H igh Sensitive Troponin I Reference Ranges: Female: 0-51 ng/L Male: 0-76 ng/L Testing performed on SkyJam using a homogeneous sandwich chemiluminescent immunoassay based on [employer] management technology. Albumin BCP dye [Mass/Vol] 3.4 G/dL Low 3.5 - 5.0 G/dL AO ADM SS Albumin/Globulin [Mass ratio] 0.9 {ratio} Low 1.1 - 2.5 ratio AO ADM SS ALP [Catalytic activity/Vol] 59 U/L Normal 40 - 135 U/L AO ADM SS ALT With P-5'-P [Catalytic activity/Vol] 50 U/L Normal 16 - 63 U/L AO ADM SS AST With P-5'-P [Catalytic activity/Vol] 38 U/L Normal 10 - 40 U/L AO ADM SS Basophils (Bld) [#/Vol] 0.0 103/mcL Normal 0.0 - 0.2 10^3/mcL AO Workflow SS Basophils/100 WBC (Bld) 0.3 % Normal 0.0 - 2.5 % AO Workflow SS Bilirubin [Mass/Vol] 0.4 mg/dL Normal 0.2 - 1 .0 mg/dL AO ADM SS Comment on above: Interpretive Data: U se of this assay is not recommended for patients undergoing treatment with eltrombopag due to the potential for falsely elevated results. Calcium [Mass/Vol] 8.8 mg/dL Normal 8.4 - 10. 2 mg/dL AO ADM SS Chloride [Moles/Vol] 102 mmol/L Normal 98 - 10 7 mmol/L AO ADM SS CO2 [Moles/Vol] 24 mmol/L Normal 22 - 29 mmol/L AO ADM SS Creatinine [Mass/Vol] 0.82 mg/dL Normal 0.70 - 1.30 mg/dL AO ADM SS Comment on above: Interpretive Data: T esting performed on Siemens Dimension EXL analyzer using a modified kinetic Hector technique. Electrolyte Balance 10.0 mEq/L Normal 4.0 - 15 .0 mEq/L AO ADM SS Eosinophil, Absolute 0.4 103/mcL Normal 0.0 - 0 .7 10^3/mcL AO Workflow SS Eosinophils/100 WBC (Bld) 7.3 % High 0.0 - 7.0 % AO Workflow SS Erythrocyte distribution width (RBC) [Ratio] 13.2 % Normal 11.5 - 15.5 % AO Workflow SS Estimated Glomerular Filtration Rate 101 ml/min/1.73sqm Invalid Interpretation Code AO Chemistry S Comment on above: Interpretive Data: Stages of Chronic Kidney Disease (CKD) Stage Description eGFR(ml/min/1.73 sq.m.) CKD 1 Normal kidney function or >=90 normal kindney function with possible kidney damage (ex. Proteinuria) CKD 2 Kidney damage with mild loss 60-89 of kidney function CKD 3a Mild to moderate loss of kidney 45-59 function CKD 3b Moderate to severe loss of 30-44 of kindey function CKD 4 Severe loss of kidney function 15-29 CKD 5 Kidney failure <15 Note: (go live 2024) the eGFR calculation was updated to the 2020 CKD-EPI creatinine equation without a race factor to calculate the eGFR results. Globulin 3.8 G/dL Normal 1.5 - 3.8 G/dL AO ADM SS Glucose [Mass/Vol] 150 mg/dL High 70 - 105 mg/dL AO ADM SS Hematocrit (Bld) [Volume fraction] 42.4 % Normal 40.0 - 52.0 % AO Workflow SS Hemoglobin (Bld) [Mass/Vol] 14.6 G/dL Normal 13.0 - 17.5 G/dL AO Workflow SS Lymphocytes (Bld) [#/Vol] 0.8 103/mcL Low 0.9 - 4.3 10^3/mcL AO Workflow SS Lymphocytes/100 WBC (Bld) 15.1 % Low 20.0 - 40.0 % AO Workflow SS Magnesium [Mass/Vol] 1.8 mg/dL Normal 1.8 - 2 .4 mg/dL AO ADM SS MCH (RBC) [Entitic mass] 31.2 pg Normal 27.0 - 33.0 pg AO Workflow SS MCHC 34.4 G/dL Normal 32.0 - 36.0 G/dL AO Workflow SS MCV (RBC) [Entitic vol] 90.6 fL Normal 81.0 - 100.0 fL AO Workflow SS Monocyte distribution width Auto (Bld) [Entitic vol] 23.54 1 High 0.00 - 20.00 AO Workflow SS Comment on above: Result Comment: For adults in ED, MDW>20.0 may be associated with a higher risk of sepsis during the first 12hrs of hospital admission Monocytes (Bld) [#/Vol] 0.6 103/mcL Normal 0.1 - 1.4 10^3/mcL AO Workflow SS Monocytes/100 WBC (Bld) 11.2 % Normal 2.0 - 13.0 % AO Workflow SS Natriuretic peptide.B prohormone N-Terminal [Mass/Vol] 150 pg/mL High 0 - 125 pg/mL AO ADM SS Comment on above: Interpretive Data: N T-proBNP results of less than 300 pg/mL effectively rules out acute congestive heart failure with 99% negative predictive value. Neutrophils (Bld) [#/Vol] 3.3 103/mcL Normal 2.3 - 8.1 10^3/mcL AO Workflow SS Neutrophils/100 WBC (Bld) 66.1 % Normal 50.0 - 75.0 % AO Workflow SS Platelet mean volume (Bld) [Entitic vol] 9.4 fL Normal 6.4 - 10.5 fL AO Workflow SS Platelets (Bld) [#/Vol] 112 103/mcL Low 150 - 450 10^3/mcL AO Workflow SS Potassium [Moles/Vol] 4.2 mmol/L Normal 3.5 - 5.1 mmol/L AO ADM SS Protein [Mass/Vol] 7.2 G/dL Normal 6.4 - 8.2 G/dL AO ADM SS RBC (Bld) [#/Vol] 4.68 106/mcL Normal 4.50 - 6.0 0 10^6/mcL AO Workflow SS Sodium [Moles/Vol] 136 mmol/L Normal 136 - 145 mmol/L AO ADM SS Troponin I.cardiac DL <= 0.01 ng/mL [Mass/Vol] ng/L Normal 0 - 76 ng/L AO ADM SS Comment on above: Interpretive Data: H igh Sensitive Troponin I Reference Ranges: Female: 0-51 ng/L Male: 0-76 ng/L Testing performed on SkyJam using a homogeneous sandwich chemiluminescent immunoassay based on [employer] management technology. Urea nitrogen [Mass/Vol] 8 mg/dL Normal 7 - 18 mg/dL AO ADM SS Urea nitrogen/Creatinine [Mass ratio] 10 ratio Normal 7 - 27 ratio AO ADM SS WBC (Bld) [#/Vol] 5.0 103/mcL Normal 4.5 - 10.8 10^3/mcL AO Workflow SS LABORATORYOrdered By: Juan Joshua on 08-23-2024 FLUAV RNA GABI+probe Ql (Resp) Positive *ABN* (08/23/24 7:42 AM) Invalid Interpretation Code Negative AO Auto Urine SS FLUBV RNA GABI+probe Ql (Resp) Negative (08/23/24 7:42 AM) Normal Negative AO Auto Urine SS RSV RNA GABI+probe Ql (Resp) Negative (08/23/24 7:42 AM) Normal Negative AO Auto Urine SS SARS-CoV-2 (COVID-19) RNA GABI+probe Ql (Resp) Negative 8 (08/23/24 7:42 AM) Normal Negative AO Auto Urine SS Comment on above: Interpretive Data: R esults from the Xpert Xpress CoV-2/Flu/RSV plus test should be correlated with the clinical history, epidemiological data, and other data available to the clinical evaluating the patient. Performance of the Xpert Xpress CoV-2/Flu/RSV plus test has only been established in nasopharyngeal swab specimen. Erroneous test results might occur from improper specimen collection, failure to follow the recommended sample collection, handling and storage procedures, technical error, or sample mix-up. False negative results may occur if a virus is present at a level below the analytical limit of detection. Viral nucleic acid may persist in vivo, independent of virus viability. Detection of analyte target(s) does not imply that the corresponding virus(es) are infectious or are the causative agents for clinical symptoms. Recent patient exposure to FluMist or other live attenuated influenza vaccines may cause inaccurate positive results. MGon 08-23-2024 Magnesium [Mass/Vol] 1.8 mg/dL Normal 1.8-2.4 [facility] Comment on above: Performed By: #### C BC, GFR, TEREZA, JAS, ANEU, CMP, MG, PBNP, TROPHS #### [address] [address] PBNPon 08-23-2024 Natriuretic peptide B (Bld) [Mass/Vol] 150 pg/mL High 0-125 [facility] Comment on above: Result Comment: NT-p roBNP results of less than 300 pg/mL effectively rules out acute congestive heart failure with 99% negative predictive value. Performed By: #### C BC, GFR, TEREZA, JAS, ANEU, CMP, MG, PBNP, TROPHS #### [address] [address] TROPHSon 08-23-2024 High Sensitivity Troponin I 4 ng/L Normal 0-76 [facility] Comment on above: Result Comment: High Sensitive Troponin I Reference Ranges: Female: 0-51 ng/L Male: 0-76 ng/L Testing performed on Dimension EXL using a homogeneous sandwich chemiluminescent immunoassay based on [employer] management technology. Performed By: #### T [facility] #### [address] [address] High Sensitivity Troponin I <4 Normal 0-76 [facility] Comment on above: Result Comment: High Sensitive Troponin I Reference Ranges: Female: 0-51 ng/L Male: 0-76 ng/L Testing performed on Dimension EXL using a homogeneous sandwich chemiluminescent immunoassay based on [employer] management technology. Performed By: #### C BC, GFR, JAS STARKS, ANEU, CMP, MG, PBNP, TROPHS #### [address] [address] XR CHEST 1 VIEWon 08-23-2024 XR CHEST 1 VIEW ORIGINAL EXAMINATION: ONE XRAY VIEW OF THE CHEST08/23/2024 8:51 am COMPARISON: 11/24/2023 HISTORY: ORDERING SYSTEM PROVIDED HISTORY: Reason for Exam: chest pain FINDINGS: The cardiomediastinal contours are normal. Nodular density projects over the right upper lung, measuring approximately 9 mm. Coarsened lung markings seen. Vascular structures appear within normal limits. There is no consolidation. No pleural fluid or pneumothorax. No aggressive osseous lesions identified. IMPRESSION: 1. 9 mm nodular density projects over the right upper lung. CT advised to exclude a pulmonary nodule. 2. No acute radiographic finding Interpreted by: Roque Mcallister MD Preliminary Report By: Roque Mcallister MD Electronically signed By Roque Mcallister MD Dictated Date: 08/23/2024 8:59:24 AM Prelim Date: 08/23/2024 9:01:21 AM Sign Date: 08/23/2024 9:01:21 AM Ordering Provider: ROSA ELENA [place] [facility] .Auto Diffon 11-24-2023 Basophil, Absolute 0.0 10 3/mcL Normal 0.0-0.2 Count includes the [facility] ([place]) Comment on above: Performed By: #### T ROPHS, CBC, ANEU, CMP, LIP, ADIFF, DIMER, MDW, GFR, PBNP #### [address] [address] Basophils/100 WBC (Bld) 0.5 % Normal 0.0-2.5 [facility] ([place]) Comment on above: Performed By: #### T ROPHS, CBC, ANEU, CMP, LIP, ADIFF, DIMER, MDW, GFR, PBNP #### [address] [address] Eosinophil, Absolute 0.4 10 3/mcL Normal 0.0-0.4 [facility] ([place]) Comment on above: Performed By: #### T ROPHS, CBC, ANEU, CMP, LIP, ADIFF, DIMER, MDW, GFR, PBNP #### [address] [address] Eosinophils/100 WBC (Bld) 4.4 % Normal 0.0-7.0 [facility] ([place]) Comment on above: Performed By: #### T ROPHS, CBC, ANEU, CMP, LIP, ADIFF, DIMER, MDW, GFR, PBNP #### [address] [address] Lymphocyte, Absolute 2.4 10 3/mcL Normal 0.8-3.9 [facility] ([place]) Comment on above: Performed By: #### T ROPHS, CBC, ANEU, CMP, LIP, ADIFF, DIMER, MDW, GFR, PBNP #### [address] [address] Lymphocytes/100 WBC (Bld) 26.5 % Normal 10.0-50.0 [facility] ([place]) Comment on above: Performed By: #### T ROPHS, CBC, ANEU, CMP, LIP, ADIFF, DIMER, MDW, GFR, PBNP #### [address] [address] Monocyte, Absolute 0.9 10 3/mcL Normal 0.2-1.0 Count includes the [facility] ([place]) Comment on above: Performed By: #### T ROPHS, CBC, ANEU, CMP, LIP, ADIFF, DIMER, MDW, GFR, PBNP #### [address] [address] Monocytes/100 WBC (Bld) 10.3 % Normal 1.7-13.0 [facility] ([place]) Comment on above: Performed By: #### T ROPOZZIE, CBC, ANEU, CMP, LIP, ADIFF, DIMER, MDW, GFR, PBNP #### [address] [address] Neutrophils/100 WBC (Bld) 58.3 % Normal 37.0-80.0 [facility] ([place]) Comment on above: Performed By: #### T ELIER, CBC, ANEU, CMP, LIP, ADIFF, DIMER, MDW, GFR, PBNP #### [address] [address] .GFRon 11-24-2023 GFR Non- 95 ml/min/1.73sqm Normal [facility] ([place]) Comment on above: Result Comment: GFR Population mean for , Non- Americans Ages 20-29 = 116 mL/min/1.73 sq.m. Ages 30-39 = 107 mL/min/1.73 sq.m. Ages 40-49 = 99 mL/min/1.73 sq.m. Ages 50-59 = 93 mL/min/1.73 sq.m. Ages 60-69 = 85 mL/min/1.73 sq.m. Ages 70+ = 75 mL/min/1.73 sq.m. Chronic Kidney Disease: Less than 60 mL/min/1.73 square meters End Stage Renal Disease: Less than 15 mL/min/1.73 square meters Performed By: #### T ROPOZZIE, CBC, ANEU, CMP, LIP, ADIFF, DIMER, MDW, GFR, PBNP #### [address] [address] GFR 115 ml/min/1.73sqm Normal [facility] ([place]) Comment on above: Result Comment: GFR Population mean for , Non- Americans Ages 20-29 = 116 mL/min/1.73 sq.m. Ages 30-39 = 107 mL/min/1.73 sq.m. Ages 40-49 = 99 mL/min/1.73 sq.m. Ages 50-59 = 93 mL/min/1.73 sq.m. Ages 60-69 = 85 mL/min/1.73 sq.m. Ages 70+ = 75 mL/min/1.73 sq.m. Chronic Kidney Disease: Less than 60 mL/min/1.73 square meters End Stage Renal Disease: Less than 15 mL/min/1.73 square meters Performed By: #### T ELIER, CBC, ANEU, CMP, LIP, ADIFF, DIMER, MDW, GFR, PBNP #### [address] [address] .MDWon 11-24-2023 Monocyte Distribution Width 18.57 Normal 0.00-20.00 [facility] ([place]) Comment on above: Result Comment: For ED adult patients suspected of sepsis, MDW<=20.0 does not rule out sepsis or risk of sepsis Performed By: #### T ROPHS, CBC, ANEU, CMP, LIP, ADIFF, DIMER, MDW, GFR, PBNP #### [address] [address] .NEUABSon 11-24-2023 Neutrophil, Absolute 5.3 10 3/mcL Normal 2.9-6.2 [facility] ([place]) Comment on above: Performed By: #### T ROPHS, CBC, ANEU, CMP, LIP, ADIFF, DIMER, MDW, GFR, PBNP #### [address] [address] BMPon 11-24-2023 BUN/Creatinine Ratio 13 ratio Normal 7-27 Count includes the [facility] ([place]) Comment on above: Performed By: #### T ROPHS, CBC, ANEU, CMP, LIP, ADIFF, DIMER, MDW, GFR, PBNP #### [address] [address] Calcium [Mass/Vol] 8.6 mg/dL Normal 8.4-10.2 [facility] ([place]) Comment on above: Performed By: #### T ELIER, CBC, ANEU, CMP, LIP, ADIFF, DIMER, MDW, GFR, PBNP #### [address] [address] Chloride [Moles/Vol] 94 mmol/L Low 98-107 Count includes the [facility] ([place]) Comment on above: Performed By: #### T ROPOZZIE, CBC, ANEU, CMP, LIP, ADIFF, DIMER, MDW, GFR, PBNP #### [address] [address] CO2 [Moles/Vol] 23 mmol/L Normal 22-29 [facility] Comment on above: Performed By: #### T ELIER, CBC, ANEU, CMP, LIP, ADIFF, DIMER, MDW, GFR, PBNP #### [address] [address] Creatinine [Mass/Vol] 0.83 mg/dL Normal 0.70-1.30 [facility] ([place]) Comment on above: Performed By: #### T ROPHS, CBC, ANEU, CMP, LIP, ADIFF, DIMER, MDW, GFR, PBNP #### [address] [address] Electrolyte Balance 14.0 mEq/L Normal 4.0-15.0 [facility] ([place]) Comment on above: Performed By: #### T ROPHS, CBC, ANEU, CMP, LIP, ADIFF, DIMER, MDW, GFR, PBNP #### [address] [address] Glucose [Mass/Vol] 86 mg/dL Normal 70-105 [facility] ([place]) Comment on above: Performed By: #### T ELIER, CBC, ANEU, CMP, LIP, ADIFF, DIMER, MDW, GFR, PBNP #### [address] [address] Potassium [Moles/Vol] 3.6 mmol/L Normal 3.5-5.1 [facility] ([place]) Comment on above: Performed By: #### T ELIER, CBC, ANEU, CMP, LIP, ADIFF, DIMER, MDW, GFR, PBNP #### [address] [address] Sodium [Moles/Vol] 131 mmol/L Low 136-145 [facility] ([place]) Comment on above: Performed By: #### T ELIER, CBC, ANEU, CMP, LIP, ADIFF, DIMER, MDW, GFR, PBNP #### [address] [address] Urea nitrogen [Mass/Vol] 11 mg/dL Normal 7-18 [facility] ([place]) Comment on above: Performed By: #### T ELIER, CBC, ANEU, CMP, LIP, ADIFF, DIMER, MDW, GFR, PBNP #### [address] [address] CBCon 11-24-2023 Erythrocyte distribution width (RBC) [Ratio] 13.0 % Normal 11.5-14.5 [facility] ([place]) Comment on above: Performed By: #### T ELIER, CBC, ANEU, CMP, LIP, ADIFF, DIMER, MDW, GFR, PBNP #### [address] [address] Hematocrit (Bld) [Volume fraction] 42.2 % Normal 42.0-52.0 [facility] ([place]) Comment on above: Performed By: #### T ROPHS, CBC, ANEU, CMP, LIP, ADIFF, DIMER, MDW, GFR, PBNP #### [address] [address] Hgb 14.9 G/dL Normal 14.0-18.0 [facility] ([place]) Comment on above: Performed By: #### T ROPHS, CBC, ANEU, CMP, LIP, ADIFF, DIMER, MDW, GFR, PBNP #### [place] [id number] MCH (RBC) [Entitic mass] 32.8 pg High 27.0-31.2 [facility] ([place]) Comment on above: Performed By: #### T ROPHS, CBC, ANEU, CMP, LIP, ADIFF, DIMER, MDW, GFR, PBNP #### [address] [address] MCHC 35.3 G/dL Normal 31.8-35.4 [facility] ([place]) Comment on above: Performed By: #### T ROPHS, CBC, ANEU, CMP, LIP, ADIFF, DIMER, MDW, GFR, PBNP #### [address] [address] MCV (RBC) [Entitic vol] 92.8 fL Normal 80.0-94.0 [facility] ([place]) Comment on above: Performed By: #### T ROPHS, CBC, ANEU, CMP, LIP, ADIFF, DIMER, MDW, GFR, PBNP #### [address] [address] Platelet 175 10 3/mcL Normal 130-400 [facility] ([place]) Comment on above: Performed By: #### T ROPHS, CBC, ANEU, CMP, LIP, ADIFF, DIMER, MDW, GFR, PBNP #### [address] [address] Platelet mean volume (Bld) [Entitic vol] 8.3 fL Normal 7.4-10.4 [facility] ([place]) Comment on above: Performed By: #### T ROPHS, CBC, ANEU, CMP, LIP, ADIFF, DIMER, MDW, GFR, PBNP #### [facility] [address] [place], [place] [address] RBC 4.55 10 6/mcL Normal 4.04-6.13 [facility] ([place]) Comment on above: Performed By: #### T ELIER, CBC, ANEU, CMP, LIP, ADIFF, DIMER, MDW, GFR, PBNP #### [facility] [place] [address] [place], [place] [address] WBC 9.0 10 3/mcL Normal 4.6-10.8 [facility] ([place]) Comment on above: Performed By: #### T ELIER, CBC, ANEU, CMP, LIP, ADIFF, DIMER, MDW, GFR, PBNP #### [id number] [place], [place] [address] LABORATORYOrdered By: SYSTEM SYSTEM on 11-24-2023 Troponin I.cardiac DL <= 0.01 ng/mL [Mass/Vol] ng/L Normal 0 - 76 ng/L AO ADM SS Comment on above: Interpretive Data: H igh Sensitive Troponin I Reference Ranges: Female: 0-51 ng/L Male: 0-76 ng/L Testing performed on SkyJam using a homogeneous sandwich chemiluminescent immunoassay based on [employer] management technology. Basophil, Absolute 0.0 103/mcL Normal 0.0 - 0.2 10^3/mcL AO Workflow SS Basophils/100 WBC (Bld) 0.5 % Normal 0.0 - 2.5 % AO Workflow SS Calcium [Mass/Vol] 8.6 mg/dL Normal 8.4 - 10. 2 mg/dL AO ADM SS Chloride [Moles/Vol] 94 mmol/L Low 98 - 10 7 mmol/L AO ADM SS CO2 [Moles/Vol] 23 mmol/L Normal 22 - 29 mmol/L AO ADM SS Creatinine [Mass/Vol] 0.83 mg/dL Normal 0.70 - 1.30 mg/dL AO ADM SS Electrolyte Balance 14.0 mEq/L Normal 4.0 - 15 .0 mEq/L AO ADM SS Eosinophil, Absolute 0.4 103/mcL Normal 0.0 - 0 .4 10^3/mcL AO Workflow SS Eosinophils/100 WBC (Bld) 4.4 % Normal 0.0 - 7.0 % AO Workflow SS Erythrocyte distribution width (RBC) [Ratio] 13.0 % Normal 11.5 - 14.5 % AO Workflow SS GFR/1.73 sq M.predicted among blacks MDRD (S/P/Bld) [Vol rate/Area] 115 ml/min/1.73sqm Invalid Interpretation Code AO Chemistry S Comment on above: Interpretive Data: GFR Population mean for , Non- Americans Ages 20-29 = 116 mL/min/1.73 sq.m. Ages 30-39 = 107 mL/min/1.73 sq.m. Ages 40-49 = 99 mL/min/1.73 sq.m. Ages 50-59 = 93 mL/min/1.73 sq.m. Ages 60-69 = 85 mL/min/1.73 sq.m. Ages 70+ = 75 mL/min/1.73 sq.m. Chronic Kidney Disease: Less than 60 mL/min/1.73 square meters End Stage Renal Disease: Less than 15 mL/min/1.73 square meters GFR/1.73 sq M.predicted among non-blacks MDRD (S/P/Bld) [Vol rate/Area] 95 ml/min/1.73sqm Invalid Interpretation Code AO Chemistry S Comment on above: Interpretive Data: GFR Population mean for , Non- Americans Ages 20-29 = 116 mL/min/1.73 sq.m. Ages 30-39 = 107 mL/min/1.73 sq.m. Ages 40-49 = 99 mL/min/1.73 sq.m. Ages 50-59 = 93 mL/min/1.73 sq.m. Ages 60-69 = 85 mL/min/1.73 sq.m. Ages 70+ = 75 mL/min/1.73 sq.m. Chronic Kidney Disease: Less than 60 mL/min/1.73 square meters End Stage Renal Disease: Less than 15 mL/min/1.73 square meters Glucose [Mass/Vol] 86 mg/dL Normal 70 - 105 mg/dL AO ADM SS Hematocrit (Bld) [Volume fraction] 42.2 % Normal 42.0 - 52.0 % AO Workflow SS Hemoglobin (Bld) [Mass/Vol] 14.9 G/dL Normal 14.0 - 18.0 G/dL AO Workflow SS Lipase [Catalytic activity/Vol] 47 U/L Normal 16 - 77 U/L AO ADM SS Lymphocyte, Absolute 2.4 103/mcL Normal 0.8 - 3 .9 10^3/mcL AO Workflow SS Lymphocytes/100 WBC (Bld) 26.5 % Normal 10.0 - 50.0 % AO Workflow SS MCH (RBC) [Entitic mass] 32.8 pg High 27.0 - 31.2 pg AO Workflow SS MCHC 35.3 G/dL Normal 31.8 - 35.4 G/dL AO Workflow SS MCV (RBC) [Entitic vol] 92.8 fL Normal 80.0 - 94.0 fL AO Workflow SS Monocyte distribution width Auto (Bld) [Entitic vol] 18.57 1 Normal 0.00 - 20.00 AO Workflow SS Comment on above: Result Comment: For ED adult patients suspected of sepsis, MDW<=20.0 does not rule out sepsis or risk of sepsis Monocyte, Absolute 0.9 103/mcL Normal 0.2 - 1.0 10^3/mcL AO Workflow SS Monocytes/100 WBC (Bld) 10.3 % Normal 1.7 - 13.0 % AO Workflow SS Natriuretic peptide.B prohormone N-Terminal [Mass/Vol] 186 pg/mL High 0 - 125 pg/mL AO ADM SS Comment on above: Interpretive Data: N T-proBNP results of less than 300 pg/mL effectively rules out acute congestive heart failure with 99% negative predictive value. Neutrophil, Absolute 5.3 103/mcL Normal 2.9 - 6 .2 10^3/mcL AO Workflow SS Neutrophils/100 WBC (Bld) 58.3 % Normal 37.0 - 80.0 % AO Workflow SS Platelet mean volume (Bld) [Entitic vol] 8.3 fL Normal 7.4 - 10.4 fL AO Workflow SS Platelets (Bld) [#/Vol] 175 103/mcL Normal 130 - 400 10^3/mcL AO Workflow SS Potassium [Moles/Vol] 3.6 mmol/L Normal 3.5 - 5.1 mmol/L AO ADM SS RBC (Bld) [#/Vol] 4.55 106/mcL Normal 4.04 - 6.1 3 10^6/mcL AO Workflow SS Sodium [Moles/Vol] 131 mmol/L Low 136 - 145 mmol/L AO ADM SS Troponin I.cardiac DL <= 0.01 ng/mL [Mass/Vol] 4 ng/L Normal 0 - 76 ng/L AO ADM SS Comment on above: Interpretive Data: H igh Sensitive Troponin I Reference Ranges: Female: 0-51 ng/L Male: 0-76 ng/L Testing performed on Dimension EXL using a homogeneous sandwich chemiluminescent immunoassay based on [employer] management technology. Urea nitrogen [Mass/Vol] 11 mg/dL Normal 7 - 18 mg/dL AO ADM SS Urea nitrogen/Creatinine [Mass ratio] 13 ratio Normal 7 - 27 ratio AO ADM SS WBC (Bld) [#/Vol] 9.0 103/mcL Normal 4.6 - 10.8 10^3/mcL AO Workflow SS LIPon 11-24-2023 Lipase Level 47 U/L Normal 16-77 [facility] ([place]) Comment on above: Performed By: #### T ELIER, CBC, ANEU, CMP, LIP, ADIFF, DIMER, MDW, GFR, PBNP #### [address] [address] PBNPon 11-24-2023 Natriuretic peptide B (Bld) [Mass/Vol] 186 pg/mL High 0-125 [facility] ([place]) Comment on above: Result Comment: NT-p roBNP results of less than 300 pg/mL effectively rules out acute congestive heart failure with 99% negative predictive value. Performed By: #### T ELIER, CBC, ANEU, CMP, LIP, ADIFF, DIMER, MDW, GFR, PBNP #### [address] [address] [facility] High Sensitivity Troponin I <4 Normal 0-76 [facility] ([place]) Comment on above: Result Comment: High Sensitive Troponin I Reference Ranges: Female: 0-51 ng/L Male: 0-76 ng/L Testing performed on Dimension EXL using a homogeneous sandwich chemiluminescent immunoassay based on [employer] management technology. Performed By: #### T ELIER, CBC, ANEU, CMP, LIP, ADIFF, DIMER, MDW, GFR, PBNP #### [address] [address] High Sensitivity Troponin I 4 ng/L Normal 0-76 [facility] ([place]) Comment on above: Result Comment: High Sensitive Troponin I Reference Ranges: Female: 0-51 ng/L Male: 0-76 ng/L Testing performed on SkyJam using a homogeneous sandwich chemiluminescent immunoassay based on [employer] management technology. Performed By: #### T ROPHS, CBC, ANEU, CMP, LIP, ADIFF, DIMER, MDW, GFR, PBNP #### [id number] [place], [place] [address] XR CHEST 1 VIEWon 11-24-2023 XR CHEST 1 VIEW ORIGINAL EXAMINATION: ONE XRAY VIEW OF THE CHEST 11/24/2023 7:02 pm COMPARISON: 01/24/2023 HISTORY: ORDERING SYSTEM PROVIDED HISTORY: Reason for Exam: Pt c/o bilateral chest pain that started yesterday with SOB. chest pain FINDINGS: The cardiomediastinal silhouette appears normal. There is no focal consolidation. There is no pulmonary edema. There is no evidence of pleural effusion. There is no evidence of pneumothorax. No fracture is identified. IMPRESSION: No acute abnormality is identified. Interpreted by: Chapincito Musa Preliminary Report By: Chapincito Musa Electronically signed By Chapincito Musa Dictated Date: 11/24/2023 7:20:54 PM Prelim Date: 11/24/2023 7:21:09 PM Sign Date: 11/24/2023 7:21:09 PM Ordering Provider: CHAUNCEY Charles [facility] ([place]) Basophil percentageOrdered B y: Conrad Feliz on 08-16-2023 Cholesterol [Mass/Vol] 142 mg/dL <200 [facility] Comment on above: <200 mg/dL Desirable 200-240 mg/dL Borderline >240 mg/dL High Risk Triglyceride [Mass/Vol] 74 mg/dL <199 [facility] Comment on above: The drugs N-Acetylcy steine and Metamizole may falsely depress this assay.Serum Triglycerides Reference Interval Normal <150 mg/dL Borderline high 150 - 199 mg/dL High 200 - 499 mg/dL Very High > or = 500 mg/dL Laboratory - Chemistry and C hemistry - challengeOrdered By: Conrad Feliz on 08-16-2023 ALT [Catalytic activity/Vol] 48 U/L 16-61 [facility] Cholesterol in HDL [Mass/Vol] 52 mg/dL >40 [facility] Comment on above: The drugs N-Acetylcy steine and Metamizole may falsely depress this assay. Reference Range HDL <40 mg/dL Low HDL Cholesterol HDL >or= 60 mg/dL High HDL Cholesterol Cholesterol in LDL [Mass/Vol] 75 mg/dL 0-130 [facility] CK [Catalytic activity/Vol] 66 U/L 39-308 [facility] No Panel InformationOrdered By: Conrad Feliz on 08-16-2023 VLDL Cholesterol 15 mg/dL 5-40 [facility] Thin prep Papanicolaou smear with manual screeningOrdered By: Conrad Feliz on 08-16-2023 Thin prep Papanicolaou smear with manual screening 19 U/L 15-37 [facility] Basophil percentageOrdered B y: Conrad Feliz on 04-09-2023 Bilirubin [Mass/Vol] 0.80 mg/dL 0.20-1.00 [facility] Comment on above: For patients on eltr ombopag therapy, use of Dimension [place] TBIL is not recommended. Chloride [Moles/Vol] 109 mmol/L 98-107 [facility] Glucose [Mass/Vol] 130 mg/dL 74-106 [facility] [place] Comment on above: Fasting Glucose resu lt greater than or equal to 126 mg/dL suggests DIABETES MELLITUS per A.D.A. criteria. Potassium [Moles/Vol] 4.2 mmol/L 3.5-5.1 [facility] Protein [Mass/Vol] 6.7 g/dL 6.4-8.2 [facility] [place] Sodium [Moles/Vol] 138 mmol/L 136-145 [facility] [place] WBC (Bld) [#/Vol] 7.1 10*3/uL 4.4-11.0 [facility] [place] Blood erythrocytes count (nu mber/volume)Ordered By: Conrad Feliz on 04-09-2023 RBC (Bld) [#/Vol] 4.68 10*6/uL 4.6-6.2 [facility] Blood hemoglobin measurement (mass/volume)Ordered By: Conrad Feliz on 04-09-2023 Hemoglobin (Bld) [Mass/Vol] 15.3 g/dL 13.0-16.5 [facility] Blood platelet mean volumeOr dered By: Conrad Feliz on 04-09-2023 Platelet mean volume (Bld) [Entitic vol] 10.6 fL 6.2-12.0 [facility] Determination of erythrocyte mean corpuscular volume (MCV)Ordered By: Conrad Feliz on 04-09-2023 MCV (RBC) [Entitic vol] 95.7 fL 80-94 [facility] Hematocrit Auto (Bld) [Volum e fraction]Ordered By: Conrad Feliz on 04-09-2023 Hematocrit (Bld) [Volume fraction] 44.8 % 40-54 [facility] Laboratory - Chemistry and C hemistry - challengeOrdered By: Conrad Feliz on 04-09-2023 ALP [Catalytic activity/Vol] 38 U/L 45-117 [facility] ALT [Catalytic activity/Vol] 54 U/L 16-61 [facility] CO2 [Moles/Vol] 25.0 mmol/L 21.0-32.0 [facility] Globulin (S) [Mass/Vol] 3.5 g/dL 2.2-4.2 [facility] Urea nitrogen/Creatinine [Mass ratio] 11.2 mg/mg 10-20 [facility] Laboratory - Hematology and Cell countsOrdered By: Conrad Feliz on 04-09-2023 Erythrocyte distribution width (RBC) [Entitic vol] 41.8 fL 35.1-43.9 [facility] Erythrocyte distribution width (RBC) [Ratio] 12.0 % 11.6-14.6 [facility] MCH (RBC) [Entitic mass] 32.7 pg 27.0-32.0 [facility] MCHC Auto (RBC) [Mass/Vol]Or dered By: Conrad Feliz on 04-09-2023 MCHC (RBC) [Mass/Vol] 34.2 g/dL 32-36 [facility] No Panel InformationOrdered By: Conrad Feliz on 04-09-2023 Estimated Creatinine Clearance Calc 108.51 ml/min [facility] Estimated GFR (MDRD) Amer 127 mL/min >60 [facility] Comment on above: GFR Calc Estimated GFR (MDRD) Non-Af Amer 105 mL/min >60 [facility] Comment on above: Non- GFR Calc Platelets bldOrdered By: Yifan Feliz on 04-09-2023 Platelets (Bld) [#/Vol] 161 10*3/uL 150-450 [facility] Serum or plasma albumin maria de jesus urement (mass/volume)Ordered By: Conrad Feliz on 04-09-2023 Albumin [Mass/Vol] 3.2 g/dL 3.2-5.0 [facility] [place] Serum or plasma albumin/glob ulin mass ratioOrdered By: Conrad Feliz on 04-09-2023 Albumin/Globulin [Mass ratio] 0.9 {ratio} 0.9-2.4 [facility] Serum or plasma calcium maria de jesus urement (mass/volume)Ordered By: Conrad Feliz on 04-09-2023 Calcium [Mass/Vol] 8.6 mg/dL 8.5-10.1 [facility] [place] Serum or plasma creatinine m easurement (mass/volume)Ordered By: Conrad Feliz on 04-09-2023 Creatinine [Mass/Vol] 0.80 mg/dL 0.70-1.30 [facility] Comment on above: The validity of the calculated GFR & GFRAA in patients over 70 years has not been determined. Clinical correlation is essential. Serum or plasma urea nitroge n measurement (mass/volume)Ordered By: Conrad Feliz on 04-09-2023 Urea nitrogen [Mass/Vol] 9 mg/dL 7-18 [facility] Thin prep Papanicolaou smear with manual screeningOrdered By: Conrad Feliz on 04-09-2023 Thin prep Papanicolaou smear with manual screening 23 U/L 15-37 [facility] Thin prep Papanicolaou smear with manual screening 4 5-15 [facility] No Panel InformationOrdered By: Conrad Feliz on 04-08-2023 Activated Clotting Time 239 sec 74-137 [facility] Basophil percentageOrdered B y: Conrad Fleiz on 03-25-2023 Cholesterol [Mass/Vol] 181 mg/dL <200 [facility] Comment on above: <200 mg/dL Desirable 200-240 mg/dL Borderline >240 mg/dL High Risk Triglyceride [Mass/Vol] 73 mg/dL <199 [facility] Comment on above: The drugs N-Acetylcy steine and Metamizole may falsely depress this assay.Serum Triglycerides Reference Interval Normal <150 mg/dL Borderline high 150 - 199 mg/dL High 200 - 499 mg/dL Very High > or = 500 mg/dL INR in Blood by Coagulation assayOrdered By: Conrad Feliz on 03-25-2023 INR Coag (Bld) [Relative time] 1.0 {INR} [facility] Laboratory - CoagulationOrde red By: Conrad Feliz on 03-25-2023 aPTT Coag (Bld) [Time] 36.5 s 24.1-36.2 [facility] PT Coag (PPP) [Time] 12.8 s 11.7-14.9 [facility] Serum or plasma cholesterol in HDL measurement (mass/volume)Ordered By: Conrad Feliz on 03-25-2023 Cholesterol in HDL [Mass/Vol] 44 mg/dL >40 [facility] Comment on above: The drugs N-Acetylcy steine and Metamizole may falsely depress this assay. Reference Range HDL <40 mg/dL Low HDL Cholesterol HDL >or= 60 mg/dL High HDL Cholesterol Serum or plasma cholesterol in VLDL measurement (mass/volume)Ordered By: Conrad Feliz on 03-25-2023 Cholesterol in VLDL [Mass/Vol] 15 mg/dL 5-40 [facility] Serum or plasma low density lipoprotein (LDL) cholesterol measurement (mass/volume)Ordered By: Conrad Feliz on 03-25-2023 Cholesterol in LDL [Mass/Vol] 122 mg/dL 0-130 [facility] .Auto Diffon 01-24-2023 Basophil, Absolute 0.0 10 3/mcL Normal 0.0-0.2 Count includes the [facility] ([place]) Comment on above: Performed By: #### T ELIER, CBC, ANEU, CMP, LIP, ADIFF, DIMER, MDW, GFR, PBNP #### [address] [place], [place] [address] Basophils/100 WBC (Bld) 0.5 % Normal 0.0-2.5 [facility] ([place]) Comment on above: Performed By: #### T ELIER, CBC, ANEU, CMP, LIP, ADIFF, DIMER, MDW, GFR, PBNP #### [address] [address] Eosinophil, Absolute 0.4 10 3/mcL Normal 0.0-0.4 [facility] ([place]) Comment on above: Performed By: #### T ROPHS, CBC, ANEU, CMP, LIP, ADIFF, DIMER, MDW, GFR, PBNP #### [address] [address] Eosinophils/100 WBC (Bld) 3.7 % Normal 0.0-7.0 [facility] ([place]) Comment on above: Performed By: #### T ROPHS, CBC, ANEU, CMP, LIP, ADIFF, DIMER, MDW, GFR, PBNP #### [address] [address] Lymphocyte, Absolute 2.3 10 3/mcL Normal 0.8-3.9 [facility] ([place]) Comment on above: Performed By: #### T ROPHS, CBC, ANEU, CMP, LIP, ADIFF, DIMER, MDW, GFR, PBNP #### [address] [address] Lymphocytes/100 WBC (Bld) 24.4 % Normal 10.0-50.0 [facility] ([place]) Comment on above: Performed By: #### T ROPHS, CBC, ANEU, CMP, LIP, ADIFF, DIMER, MDW, GFR, PBNP #### [address] [address] Monocyte, Absolute 0.9 10 3/mcL Normal 0.2-1.0 Count includes the [facility] ([place]) Comment on above: Performed By: #### T ROPHS, CBC, ANEU, CMP, LIP, ADIFF, DIMER, MDW, GFR, PBNP #### [address] [address] Monocytes/100 WBC (Bld) 9.5 % Normal 1.7-13.0 [facility] ([place]) Comment on above: Performed By: #### T ROPHS, CBC, ANEU, CMP, LIP, ADIFF, DIMER, MDW, GFR, PBNP #### [address] [address] Neutrophils/100 WBC (Bld) 61.9 % Normal 37.0-80.0 [facility] ([place]) Comment on above: Performed By: #### T LEEHS, CBC, ANEU, CMP, LIP, ADIFF, DIMER, MDW, GFR, PBNP #### [address] [address] .GFRon 01-24-2023 GFR 103 ml/min/1.73sqm Normal [facility] ([place]) Comment on above: Result Comment: GFR Population mean for , Non- Americans Ages 20-29 = 116 mL/min/1.73 sq.m. Ages 30-39 = 107 mL/min/1.73 sq.m. Ages 40-49 = 99 mL/min/1.73 sq.m. Ages 50-59 = 93 mL/min/1.73 sq.m. Ages 60-69 = 85 mL/min/1.73 sq.m. Ages 70+ = 75 mL/min/1.73 sq.m. Chronic Kidney Disease: Less than 60 mL/min/1.73 square meters End Stage Renal Disease: Less than 15 mL/min/1.73 square meters Performed By: #### T ROPHS, CBC, ANEU, CMP, LIP, ADIFF, DIMER, MDW, GFR, PBNP #### [address] [address] GFR Non- 85 ml/min/1.73sqm Normal [facility] ([place]) Comment on above: Result Comment: GFR Population mean for , Non- Americans Ages 20-29 = 116 mL/min/1.73 sq.m. Ages 30-39 = 107 mL/min/1.73 sq.m. Ages 40-49 = 99 mL/min/1.73 sq.m. Ages 50-59 = 93 mL/min/1.73 sq.m. Ages 60-69 = 85 mL/min/1.73 sq.m. Ages 70+ = 75 mL/min/1.73 sq.m. Chronic Kidney Disease: Less than 60 mL/min/1.73 square meters End Stage Renal Disease: Less than 15 mL/min/1.73 square meters Performed By: #### T ELIER, CBC, ANEU, CMP, LIP, ADIFF, DIMER, MDW, GFR, PBNP #### [address] [address] .MDWon 01-24-2023 Monocyte Distribution Width 18.73 Normal 0.00-20.00 [facility] ([place]) Comment on above: Result Comment: For ED adult patients suspected of sepsis, MDW<=20.0 does not rule out sepsis or risk of sepsis Performed By: #### T ELIER, CBC, ANEU, CMP, LIP, ADIFF, DIMER, MDW, GFR, PBNP #### [place] [address] .NEUABSon 01-24-2023 Neutrophil, Absolute 5.9 10 3/mcL Normal 2.9-6.2 [facility] ([place]) Comment on above: Performed By: #### T ELIER, CBC, ANEU, CMP, LIP, ADIFF, DIMER, MDW, GFR, PBNP #### [place] [address] CBCon 01-24-2023 Erythrocyte distribution width (RBC) [Ratio] 13.3 % Normal 11.5-14.5 [facility] ([place]) Comment on above: Performed By: #### T ELIER, CBC, ANEU, CMP, LIP, ADIFF, DIMER, MDW, GFR, PBNP #### [place] [address] Hematocrit (Bld) [Volume fraction] 50.1 % Normal 42.0-52.0 [facility] ([place]) Comment on above: Performed By: #### T ELIER, CBC, ANEU, CMP, LIP, ADIFF, DIMER, MDW, GFR, PBNP #### [place] [id number] Hgb 17.2 G/dL Normal 14.0-18.0 [facility] ([place]) Comment on above: Performed By: #### T ELIER, CBC, ANEU, CMP, LIP, ADIFF, DIMER, MDW, GFR, PBNP #### [address] [address] MCH (RBC) [Entitic mass] 32.5 pg High 27.0-31.2 [facility] ([place]) Comment on above: Performed By: #### T ELIER, CBC, ANEU, CMP, LIP, ADIFF, DIMER, MDW, GFR, PBNP #### [address] [address] MCHC 34.4 G/dL Normal 31.8-35.4 [facility] ([place]) Comment on above: Performed By: #### T ELIER, CBC, ANEU, CMP, LIP, ADIFF, DIMER, MDW, GFR, PBNP #### [address] [address] MCV (RBC) [Entitic vol] 94.4 fL High 80.0-94.0 [facility] ([place]) Comment on above: Performed By: #### T ELIER, CBC, ANEU, CMP, LIP, ADIFF, DIMER, MDW, GFR, PBNP #### [address] [address] Platelet 187 10 3/mcL Normal 130-400 [facility] ([place]) Comment on above: Performed By: #### T ELIER, CBC, ANEU, CMP, LIP, ADIFF, DIMER, MDW, GFR, PBNP #### [address] [address] Platelet mean volume (Bld) [Entitic vol] 8.6 fL Normal 7.4-10.4 [facility] ([place]) Comment on above: Performed By: #### T ELIER, CBC, ANEU, CMP, LIP, ADIFF, DIMER, MDW, GFR, PBNP #### [address] [address] RBC 5.30 10 6/mcL Normal 4.04-6.13 [facility] ([place]) Comment on above: Performed By: #### T ROPHS, CBC, ANEU, CMP, LIP, ADIFF, DIMER, MDW, GFR, PBNP #### [address] [address] WBC 9.5 10 3/mcL Normal 4.6-10.8 [facility] ([place]) Comment on above: Performed By: #### T ROPHS, CBC, ANEU, CMP, LIP, ADIFF, DIMER, MDW, GFR, PBNP #### [address] [address] CMPon 01-24-2023 Albumin Level 4.1 G/dL Normal 3.5-5.0 [facility] ([place]) Comment on above: Performed By: #### T ELIER, CBC, ANEU, CMP, LIP, ADIFF, DIMER, MDW, GFR, PBNP #### [address] [address] Albumin/Globulin [Mass ratio] 1.1 {ratio} Normal 1.1-2.5 [facility] ([place]) Comment on above: Performed By: #### T ELIER, CBC, ANEU, CMP, LIP, ADIFF, DIMER, MDW, GFR, PBNP #### [address] [address] ALP [Catalytic activity/Vol] 49 U/L Normal 40-135 [facility] ([place]) Comment on above: Performed By: #### T ROPOZZIE, CBC, ANEU, CMP, LIP, ADIFF, DIMER, MDW, GFR, PBNP #### [address] [address] ALT [Catalytic activity/Vol] 82 U/L High 16-63 [facility] ([place]) Comment on above: Performed By: #### T ROPHS, CBC, ANEU, CMP, LIP, ADIFF, DIMER, MDW, GFR, PBNP #### [address] [address] AST [Catalytic activity/Vol] 38 U/L Normal 10-40 [facility] ([place]) Comment on above: Performed By: #### T ROPHS, CBC, ANEU, CMP, LIP, ADIFF, DIMER, MDW, GFR, PBNP #### [address] [address] Bili Total 1.6 mg/dL High 0.2-1.0 [facility] ([place]) Comment on above: Result Comment: Use of this assay is not recommended for patients undergoing treatment with eltrombopag due to the potential for falsely elevated results. Performed By: #### T ROPHS, CBC, ANEU, CMP, LIP, ADIFF, DIMER, MDW, GFR, PBNP #### [address] [address] BUN/Creatinine Ratio 8 ratio Normal 7-27 Count includes the [facility] ([place]) Comment on above: Performed By: #### T LEEHS, CBC, ANEU, CMP, LIP, ADIFF, DIMER, MDW, GFR, PBNP #### [address] [address] Calcium [Mass/Vol] 9.3 mg/dL Normal 8.4-10.2 [facility] ([place]) Comment on above: Performed By: #### T ELIER, CBC, ANEU, CMP, LIP, ADIFF, DIMER, MDW, GFR, PBNP #### [address] [address] Chloride [Moles/Vol] 100 mmol/L Normal 98-107 Count includes the [facility] ([place]) Comment on above: Performed By: #### T ELIER, CBC, ANEU, CMP, LIP, ADIFF, DIMER, MDW, GFR, PBNP #### [address] [address] CO2 [Moles/Vol] 26 mmol/L Normal 22-29 [facility] Comment on above: Performed By: #### T ELIER, CBC, ANEU, CMP, LIP, ADIFF, DIMER, MDW, GFR, PBNP #### [address] [address] Creatinine [Mass/Vol] 0.92 mg/dL Normal 0.70-1.30 [facility] ([place]) Comment on above: Performed By: #### T ELIER, CBC, ANEU, CMP, LIP, ADIFF, DIMER, MDW, GFR, PBNP #### [address] [address] Electrolyte Balance 12.0 mEq/L Normal 4.0-15.0 [facility] ([place]) Comment on above: Performed By: #### T ELIER, CBC, ANEU, CMP, LIP, ADIFF, DIMER, MDW, GFR, PBNP #### [address] [address] Globulin 3.7 G/dL Normal [facility] ([place]) Comment on above: Performed By: #### T ELIER, CBC, ANEU, CMP, LIP, ADIFF, DIMER, MDW, GFR, PBNP #### [address] [address] Glucose [Mass/Vol] 74 mg/dL Normal 70-105 [facility] ([place]) Comment on above: Performed By: #### T ELIER, CBC, ANEU, CMP, LIP, ADIFF, DIMER, MDW, GFR, PBNP #### [address] [address] Potassium [Moles/Vol] 4.0 mmol/L Normal 3.5-5.1 [facility] ([place]) Comment on above: Performed By: #### T ELIER, CBC, ANEU, CMP, LIP, ADIFF, DIMER, MDW, GFR, PBNP #### [address] [address] Sodium [Moles/Vol] 138 mmol/L Normal 136-145 [facility] ([place]) Comment on above: Performed By: #### T ELIER, CBC, ANEU, CMP, LIP, ADIFF, DIMER, MDW, GFR, PBNP #### [address] [address] Total Protein 7.8 G/dL Normal 6.4-8.2 [facility] ([place]) Comment on above: Performed By: #### T LEEHS, CBC, ANEU, CMP, LIP, ADIFF, DIMER, MDW, GFR, PBNP #### [id number] [place], [place] [address] Urea nitrogen [Mass/Vol] 7 mg/dL Normal 7-18 [facility] ([place]) Comment on above: Performed By: #### T ELIER, CBC, ANEU, CMP, LIP, ADIFF, DIMER, MDW, GFR, PBNP #### [address] [place], [place] [address] DIMERon 01-24-2023 D-Dimer 534 ng/mL D-DU High 0-230 [facility] ([place]) Comment on above: Result Comment: The result of the D-Dimer test should be evaluated in the context of all the clinical and laboratory data available. In those instances where the laboratory result does not agree with the clinical evaluation, additional tests should be performed accordingly. If the D-Dimer result is used to exclude DVT or PE, the recommended cutoff value is less than 230 ng/mL. The D-Dimer result should not be used alone to rule in DVT/PE, but should be used in conjunction with a clinical pretest probability (PTP)assessment model to exclude venous thromboembolism (VTE) in outpatients suspected of deep venous thrombosis (DVT) and pulmonary embolism (PE). Performed By: #### T ELIER, CBC, ANEU, CMP, LIP, ADIFF, DIMER, MDW, GFR, PBNP #### [address] [place], [place] [address] LABORATORYOrdered By: SYSTEM SYSTEM on 01-24-2023 Albumin BCP dye [Mass/Vol] 4.1 G/dL Invalid Interpretation Code 3.5 - 5.0 G/dL AO ADM SS Albumin/Globulin [Mass ratio] 1.1 {ratio} Invalid Interpretation Code 1.1 - 2.5 ratio AO ADM SS ALP [Catalytic activity/Vol] 49 U/L Invalid Interpretation Code 40 - 135 U/L AO ADM SS ALT With P-5'-P [Catalytic activity/Vol] 82 U/L Invalid Interpretation Code 16 - 63 U/L AO ADM SS AST With P-5'-P [Catalytic activity/Vol] 38 U/L Invalid Interpretation Code 10 - 40 U/L AO ADM SS Basophil, Absolute 0.0 103/mcL Invalid Interpretation Code 0.0 - 0.2 10^3/mcL AO Workflow SS Basophils/100 WBC (Bld) 0.5 % Invalid Interpretation Code 0.0 - 2.5 % AO Workflow SS Bilirubin [Mass/Vol] 1.6 mg/dL Invalid Interpretation Code 0.2 - 1.0 mg/dL AO ADM SS Calcium [Mass/Vol] 9.3 mg/dL Invalid Interpretation Code 8.4 - 10.2 mg/dL AO ADM SS Chloride [Moles/Vol] 100 mmol/L Invalid Interpretation Code 98 - 107 mmol/L AO ADM SS CO2 [Moles/Vol] 26 mmol/L Invalid Interpretation Code 22 - 29 mmol/L AO ADM SS Creatinine [Mass/Vol] 0.92 mg/dL Invalid Interpretation Code 0.70 - 1.30 mg/dL AO ADM SS Electrolyte Balance 12.0 mEq/L Invalid Interpretation Code 4.0 - 15.0 mEq/L AO ADM SS Eosinophil, Absolute 0.4 103/mcL Invalid Interpretation Code 0.0 - 0.4 10^3/mcL AO Workflow SS Eosinophils/100 WBC (Bld) 3.7 % Invalid Interpretation Code 0.0 - 7.0 % AO Workflow SS Erythrocyte distribution width (RBC) [Ratio] 13.3 % Invalid Interpretation Code 11.5 - 14.5 % AO Workflow SS GFR/1.73 sq M.predicted among blacks MDRD (S/P/Bld) [Vol rate/Area] 103 ml/min/1.73sqm Invalid Interpretation Code AO Chemistry S GFR/1.73 sq M.predicted among non-blacks MDRD (S/P/Bld) [Vol rate/Area] 85 ml/min/1.73sqm Invalid Interpretation Code AO Chemistry S Globulin 3.7 G/dL Invalid Interpretation Code AO ADM SS Glucose [Mass/Vol] 74 mg/dL Invalid Interpretation Code 70 - 105 mg/dL AO ADM SS Hematocrit (Bld) [Volume fraction] 50.1 % Invalid Interpretation Code 42.0 - 52.0 % AO Workflow SS Hemoglobin (Bld) [Mass/Vol] 17.2 G/dL Invalid Interpretation Code 14.0 - 18.0 G/dL AO Workflow SS Lipase [Catalytic activity/Vol] 39 U/L Invalid Interpretation Code 16 - 77 U/L AO ADM SS Lymphocyte, Absolute 2.3 103/mcL Invalid Interpretation Code 0.8 - 3.9 10^3/mcL AO Workflow SS Lymphocytes/100 WBC (Bld) 24.4 % Invalid Interpretation Code 10.0 - 50.0 % AO Workflow SS Magnesium [Mass/Vol] 1.9 mg/dL Invalid Interpretation Code 1.8 - 2.4 mg/dL AO ADM SS MCH (RBC) [Entitic mass] 32.5 pg Invalid Interpretation Code 27.0 - 31.2 pg AO Workflow SS MCHC 34.4 G/dL Invalid Interpretation Code 31.8 - 35.4 G/dL AO Workflow SS MCV (RBC) [Entitic vol] 94.4 fL Invalid Interpretation Code 80.0 - 94.0 fL AO Workflow SS Monocyte distribution width Auto (Bld) [Entitic vol] 18.73 Invalid Interpretation Code 0.00 - 20.00 AO Workflow SS Comment on above: Result Comment: For ED adult patients suspected of sepsis, MDW<=20.0 does not rule out sepsis or risk of sepsis Monocyte, Absolute 0.9 103/mcL Invalid Interpretation Code 0.2 - 1.0 10^3/mcL AO Workflow SS Monocytes/100 WBC (Bld) 9.5 % Invalid Interpretation Code 1.7 - 13.0 % AO Workflow SS Natriuretic peptide.B prohormone N-Terminal [Mass/Vol] 57 pg/mL Invalid Interpretation Code 0 - 125 pg/mL AO ADM SS Neutrophil, Absolute 5.9 103/mcL Invalid Interpretation Code 2.9 - 6.2 10^3/mcL AO Workflow SS Neutrophils/100 WBC (Bld) 61.9 % Invalid Interpretation Code 37.0 - 80.0 % AO Workflow SS Platelet mean volume (Bld) [Entitic vol] 8.6 fL Invalid Interpretation Code 7.4 - 10.4 fL AO Workflow SS Platelets (Bld) [#/Vol] 187 103/mcL Invalid Interpretation Code 130 - 400 10^3/mcL AO Workflow SS Potassium [Moles/Vol] 4.0 mmol/L Invalid Interpretation Code 3.5 - 5.1 mmol/L AO ADM SS Protein [Mass/Vol] 7.8 G/dL Invalid Interpretation Code 6.4 - 8.2 G/dL AO ADM SS RBC (Bld) [#/Vol] 5.30 106/mcL Invalid Interpretation Code 4.04 - 6.13 10^6/mcL AO Workflow SS Sodium [Moles/Vol] 138 mmol/L Invalid Interpretation Code 136 - 145 mmol/L AO ADM SS Troponin I.cardiac DL <= 0.01 ng/mL [Mass/Vol] ng/L Invalid Interpretation Code 0.0 - 76.2 ng/L AO ADM SS Urea nitrogen [Mass/Vol] 7 mg/dL Invalid Interpretation Code 7 - 18 mg/dL AO ADM SS Urea nitrogen/Creatinine [Mass ratio] 8 ratio Invalid Interpretation Code 7 - 27 ratio AO ADM SS WBC (Bld) [#/Vol] 9.5 103/mcL Invalid Interpretation Code 4.6 - 10.8 10^3/mcL AO Workflow SS LABORATORYOrdered By: Serina Denton on 01-24-2023 Appearance (U) Clear (01/24/23 6:13 PM) Invalid Interpretation Code Clear AO Auto Urine SS Bilirubin Ql (U) Negative (01/24/23 6:13 PM) Invalid Interpretation Code Negative AO Auto Urine SS Color (U) Yellow (01/24/23 6:13 PM) Invalid Interpretation Code AO Auto Urine SS Fibrin D-dimer DDU (PPP) [Mass/Vol] 534 ng/mL D-DU Invalid Interpretation Code 0 - 230 ng/mL D-DU AO HemoHub SS Glucose Test strip (U) [Mass/Vol] Negative Invalid Interpretation Code Negativemg/ dL AO Auto Urine SS Hemoglobin Auto test strip (U) [Mass/Vol] Negative (01/24/23 6:13 PM) Invalid Interpretation Code Negative AO Auto Urine SS Ketones Ql (U) Negative Invalid Interpretation Code Negativemg/ dL AO Auto Urine SS UA Leuk Est Negative (01/24/23 6:13 PM) Invalid Interpretation Code Negative AO Auto Urine SS UA Nitrite Negative (01/24/23 6:13 PM) Invalid Interpretation Code Negative AO Auto Urine SS UA pH 6.0 (01/24/23 6:13 PM) Invalid Interpretation Code 5.0 - 8.0 AO Auto Urine SS UA Protein Negative Invalid Interpretation Code Negativemg/ dL AO Auto Urine SS UA Spec Grav <=1.005 *ABN* (01/24/23 6:13 PM) Invalid Interpretation Code 1.015-1.025 AO Auto Urine SS UA Specimen Type Not Given (01/24/23 6:13 PM) Invalid Interpretation Code AO Auto Urine SS UA Urobilinogen 0.2 E.U./dL Invalid Interpretation Code 0.2-1.0E.U. /dL AO Auto Urine SS LIPon 01-24-2023 Lipase Level 39 U/L Normal 16-77 [facility] ([place]) Comment on above: Performed By: #### T ELIER, CBC, ANEU, CMP, LIP, ADIFF, DIMER, MDW, GFR, PBNP #### [address] [address] MGon 01-24-2023 Magnesium [Mass/Vol] 1.9 mg/dL Normal 1.8-2.4 Count includes the [facility] ([place]) Comment on above: Performed By: #### T ELIER, CBC, ANEU, CMP, LIP, ADIFF, DIMER, MDW, GFR, PBNP #### [address] [address] PBNPon 01-24-2023 Natriuretic peptide B (Bld) [Mass/Vol] 57 pg/mL Normal 0-125 [facility] ([place]) Comment on above: Result Comment: NT-p roBNP results of less than 300 pg/mL effectively rules out acute congestive heart failure with 99% negative predictive value. Performed By: #### T ELIER, CBC, ANEU, CMP, LIP, ADIFF, DIMER, MDW, GFR, PBNP #### [address] [address] TROPHSon 01-24-2023 Troponin I High Sensitivity <4.0 Normal 0.0-76.2 [facility] ([place]) Comment on above: Performed By: #### T ELIER, CBC, ANEU, CMP, LIP, ADIFF, DIMER, MDW, GFR, PBNP #### [address] [address] UAon 01-24-2023 Color (U) Yellow Normal [facility] ([place]) Comment on above: Performed By: #### T ELIER, CBC, ANEU, CMP, LIP, ADIFF, DIMER, MDW, GFR, PBNP #### [address] [address] Glucose (U) [Mass/Vol] Negative Normal Negative [facility] ([place]) Comment on above: Performed By: #### T LEEHS, CBC, ANEU, CMP, LIP, ADIFF, DIMER, MDW, GFR, PBNP #### [address] [address] Ketones Ql (U) Negative Normal Negative [facility] ([place]) Comment on above: Performed By: #### T ROPHS, CBC, ANEU, CMP, LIP, ADIFF, DIMER, MDW, GFR, PBNP #### [address] [address] UA Appear Clear Normal Clear [facility] ([place]) Comment on above: Performed By: #### T ROPHS, CBC, ANEU, CMP, LIP, ADIFF, DIMER, MDW, GFR, PBNP #### [address] [address] UA Blood Negative Normal Negative [facility] ([place]) Comment on above: Performed By: #### T ELIER, CBC, ANEU, CMP, LIP, ADIFF, DIMER, MDW, GFR, PBNP #### [address] [address] UA Leuk Est Negative Normal Negative [facility] ([place]) Comment on above: Performed By: #### T ELIER, CBC, ANEU, CMP, LIP, ADIFF, DIMER, MDW, GFR, PBNP #### [address] [address] UA Nitrite Negative Normal Negative [facility] ([place]) Comment on above: Performed By: #### T ELIER, CBC, ANEU, CMP, LIP, ADIFF, DIMER, MDW, GFR, PBNP #### [address] [address] UA pH 6.0 Normal 5.0 - 8.0 [facility] ([place]) Comment on above: Performed By: #### T ROPHS, CBC, ANEU, CMP, LIP, ADIFF, DIMER, MDW, GFR, PBNP #### [address] [address] UA Protein Negative Normal Negative [facility] ([place]) Comment on above: Performed By: #### T ROPHS, CBC, ANEU, CMP, LIP, ADIFF, DIMER, MDW, GFR, PBNP #### [address] [address] UA Spec Grav <=1.005 Abnormal 1.015-1.025 [facility] ([place]) Comment on above: Performed By: #### T ROPHS, CBC, ANEU, CMP, LIP, ADIFF, DIMER, MDW, GFR, PBNP #### [place] [address] UA Specimen Type Not Given Normal [facility] ([place]) Comment on above: Performed By: #### T ROPHS, CBC, ANEU, CMP, LIP, ADIFF, DIMER, MDW, GFR, PBNP #### [address] [address] UA Urobilinogen 0.2 E.U./dL Normal 0.2-1.0 [facility] ([place]) Comment on above: Performed By: #### T ROPHS, CBC, ANEU, CMP, LIP, ADIFF, DIMER, MDW, GFR, PBNP #### [place] [address] Urobilinogen (U) [Mass/Vol] Negative Normal Negative [facility] ([place]) Comment on above: Performed By: #### T ROPHS, CBC, ANEU, CMP, LIP, ADIFF, DIMER, MDW, GFR, PBNP #### [place] [address] [address] XR CHEST 1 VIEWon 01-24-2023 XR CHEST 1 VIEW ORIGINAL EXAMINATION: ONE XRAY VIEW OF THE [...] Date: 01/24/2023 5:51:23 PM Ordering Provider: JAVI Charles [facility] ([place]) CT CARDIAC SCORINGon 023 CT CARDIAC SCORING Patient Name: BOLA OLIVEROS STUDY: CT CARDIAC SCORING; 01/08/2023 12:35 pm INDICATION: Chest pain, unspecified. COMPARISON: None. ACCESSION NUMBER(S): [id number] ORDERING CLINICIAN: GUNJAN JIMENEZ TECHNIQUE: Using prospective ECG gating, limited CT scan of the coronary arteries was performed without intravenous contrast. Coronary calcium scoring was performed according to the method of Agatston. FINDINGS: The score and distribution of calcium in the coronary arteries is as follows: LM: 0. LAD: 276.3. LCx: 0. RCA: 237.4. Total: 513.7. The visualized segments of the lungs are [...] mediastinal nodes elsewhere for example up to 9 mm short axis subcarinal region. Small hiatal hernia. Fatty liver. IMPRESSION: 1. Coronary artery calcium score of 513.7 *. 2. Additional findings as above. *Coronary artery calcium scoring may be helpful in predicting the risk for future coronary heart disease events. According to the [place] [employer] Foundation Clinical Expert Consensus Task Force, such testing provides important prognostic information in patients with more than one coronary heart disease risk factor. The coronary artery calcium score correlates with the annual risk of a non-fatal myocardial infarction or coronary heart disease . Coronary artery score Annual Risk 0-99 0.4% 100-399 1.3% >400 2.4% These three breakpoints correspond to lower, intermediate and high risk states for future coronary events. Such information should be used, along with appropriate clinical judgment, to make decisions regarding the intensity of risk factor management strategies to treat blood lipids and to modify other non-lipid coronary risk factors. Reference: [place] P et al. Circulation. 2007; 115:402-426 Electronically signed by: SUMMER HARTLEY, [facility] percentageOrdered B y: Gunjan Jimenez on 12-18-2022 Creatinine [Mass/Vol] 1.0 mg/dL 0.70-1.30 [facility] No Panel InformationOrdered By: Gunjan Jimenez on 12-18-2022 Bedside Estimated GFR (eGFR) > 60.0000 mL/min >60 [facility] BNTP ([id number])Ordered By: Syst em End Matcher on 12-16-2022 Natriuretic peptide B (Bld) [Mass/Vol] 20.7 pg/mL Normal 0.0-100.0 [facility]; [facility] Work Phone: Comment on above: ClaimItIA [facility] Hospitalau r XP methodology PATIENT WAS FASTINGP ERFORMED BY: Busy Moos6370 [facility] [id number] CALCIFEDIOL ([id number])Ordered B y: Wire Brush Maker on 12-16-2022 25-hydroxyvitamin D [Mass/Vol] 112.0 ng/mL Abnormal 30.0-100.0 [facility]; [facility] Work Phone: Comment on above: Vitamin D deficiency has been defined by the [place] ofMedicine and an Endocrine Society practice guideline as alevel of serum 25-OH vitamin D less than 20 ng/mL (1,2).The Endocrine Society went on to further define vitamin Dinsufficiency as a level between 21 and 29 ng/mL (2).1. IOM ([place] of Medicine). 2010. Dietary reference intakes for calcium and D. [place]: The National Academies Press.2. Lisa MF, Janine CRABTREE, Chantale CARPENTER, et al. Evaluation, treatment, and prevention of vitamin D deficiency: an Endocrine Society clinical practice guideline. JCEM. 2010; 96(7):1911-30. PATIENT WAS FASTINGP ERFORMED BY: [employer] LabGliknik6370 [facility] [id number] CBC, PLATELETS & AUT DIFF (1 [id number])Ordered By: Wire Brush Maker on 12-16-2022 Basophils (Bld) [#/Vol] 0.0 10*3/uL Normal 0.0-0.2 [facility]; [facility] Work Phone: Comment on above: PATIENT WAS FASTINGP ERFORMED BY: IRENE Labcodameon LopezCicjyu1311 [address] RoadDublin [place] [id number] Basophils/100 WBC (Bld) 1 % Normal [facility]; [facility] Work Phone: Comment on above: PATIENT WAS FASTINGP ERFORMED BY: Labco Vbiwpy9671 [address] RoadDublin [place] [id number] Eosinophils (Bld) [#/Vol] 0.4 10*3/uL Normal 0.0-0.4 [facility]; [facility] Work Phone: Comment on above: PATIENT WAS FASTINGP ERFORMED BY: Labdinora Ulniot1554 [address] RoadDublin [place] [id number] Eosinophils/100 WBC (Bld) 6 % Normal [facility]; [facility] Work Phone: Comment on above: PATIENT WAS FASTINGP ERFORMED BY: [facility] Nwydfj[address] [facility]in [place] [id number] Erythrocyte distribution width (RBC) [Ratio] 11.6 % Normal 11.6-15.4 [facility]; [facility] Work Phone: Comment on above: PATIENT WAS FASTINGP ERFORMED BY: [facility] Xuxzws1340 [address]Dublin [place] [id number] Hematocrit (Bld) [Volume fraction] 51.4 % Abnormal 37.5-51.0 [facility]; [facility] Work Phone: Comment on above: PATIENT WAS FASTINGP ERFORMED BY: [facility] Epsakx9775 [address] RoadDublin [place] [id number] Hemoglobin (Bld) [Mass/Vol] 18.3 g/dL Abnormal 13.0-17.7 [facility]; [facility] Work Phone: Comment on above: PATIENT WAS FASTINGP ERFORMED BY: [facility] Vfludv2188 [address] RoadDublin [place] [id number] Immature granulocytes (Bld) [#/Vol] 0.1 10*3/uL Normal 0.0-0.1 [facility]; [facility] Work Phone: Comment on above: PATIENT WAS FASTINGP ERFORMED BY: IRENE Labkalpesh Lopez6370 [address]bl[address] [place] [id number] Immature granulocytes/100 WBC (Bld) 1 % Normal [facility]; [facility] Work Phone: Comment on above: PATIENT WAS FASTINGP ERFORMED BY: IRENE Labco Brffrn[address] [facility]in [place] [id number] Lymphocytes (Bld) [#/Vol] 2.2 10*3/uL Normal 0.7-3.1 [facility]; [facility] Work Phone: Comment on above: PATIENT WAS FASTINGP ERFORMED BY: IRENE Labkalpesh DunnIuapsf7458 [address] RoadNovant Health [facility] [id number] Lymphocytes/100 WBC (Bld) 31 % Normal [facility]; [facility] Work Phone: Comment on above: PATIENT WAS FASTINGP ERFORMED BY: IRENE Labkalpesh Qjpakc[address] [facility] [id number] MCH (RBC) [Entitic mass] 31.9 pg Normal 26.6-33.0 [facility]; [facility] Work Phone: Comment on above: PATIENT WAS FASTINGP ERFORMED BY: IRENE LabcoHealthSouth - Specialty Hospital of UnionGalvrt6[address] [facility] [id number] MCHC (RBC) [Mass/Vol] 35.6 g/dL Normal 31.5-35.7 [facility] prehensive Internal Medicine; [facility] Work Phone: Comment on above: PATIENT WAS FASTINGP ERFORMED BY: IRENE Labco Iigjaq[address] [facility] Hospitalbl[facility] [place] [id number] MCV (RBC) [Entitic vol] 90 fL Normal 79-97 [facility]; [facility] Work Phone: Comment on above: PATIENT WAS FASTINGP ERFORMED BY: IRENE Labco Ztgrlo[address] [facility] [place] [id number] Monocytes (Bld) [#/Vol] 0.8 10*3/uL Normal 0.1-0.9 [facility]; [facility] Work Phone: Comment on above: PATIENT WAS FASTINGP ERFORMED BY: IRENE Umair Lopez6370 [address]Dublin [place] [id number] Monocytes/100 WBC (Bld) 12 % Normal [facility]; [facility] Work Phone: Comment on above: PATIENT WAS FASTINGP ERFORMED BY: IRENE [facility] Uxkglr7488 [address] RoadDublin [place] [id number] Neutrophils (Bld) [#/Vol] 3.5 10*3/uL Normal 1.4-7.0 [facility]; [facility] Work Phone: Comment on above: PATIENT WAS FASTINGP ERFORMED BY: IRENE Labcodameon DunnYklhgv6974 [address] RoadDublin [place] [id number] Neutrophils/100 WBC (Bld) 49 % Normal [facility]; [facility] Work Phone: Comment on above: PATIENT WAS FASTINGP ERFORMED BY: IRENE Labco Dqabpn8353 [address] RoadDublin [place] [id number] Platelets (Bld) [#/Vol] 207 10*3/uL Normal 150-450 [facility]; [facility] Work Phone: Comment on above: PATIENT WAS FASTINGP ERFORMED BY: IRENE Labco Kuvlrw7648 [address] RoadDublin [place] [id number] RBC (Bld) [#/Vol] 5.74 10*6/uL Normal 4.14-5.80 Compr ehensive Internal Medicine; [facility] Work Phone: Comment on above: PATIENT WAS FASTINGP ERFORMED BY: IRENE [facility] Jzkwyf9141 [address] RoadDublin [place] [id number] WBC (Bld) [#/Vol] 6.9 10*3/uL Normal 3.4-10.8 Compre hensive Internal Medicine; [facility] Work Phone: Comment on above: PATIENT WAS FASTINGP ERFORMED BY: Nugg-it6370 DSTLDNorton Suburban Hospital [id number] D-Dimer ([id number])Ordered By: Josh pulliam End Matcher on 12-16-2022 Fibrin D-dimer FEU (PPP) [Mass/Vol] 2.00 {mg/L_FEU} Abnormal 0.00-0.49 [facility]; [facility] Work Phone: Comment on above: According to the ass ay counsellors's published package insert, anormal (<0.50 mg/L FEU) D-dimer result in conjunction with a non-highclinical probability assessment, excludes deep vein thrombosis (DVT)and pulmonary embolism (PE) with high sensitivity. .D-dimer values increase with age and this can make VTE exclusion ofan older population difficult. To address this, the [place] [employer], based on best available evidence and recent guidelines,recommends that clinicians use age-adjusted D-dimer thresholds inpatients greater than 50 years of age with: a) a low probability ofPE who do not meet all Pulmonary Embolism Rule Out Criteria, orb) in those with intermediate probability of PE. The formula for anage-adjusted D-dimer cut-off is age/100. For example, a 60 year oldpatient would have an age-adjusted cut-off of 0.60 mg/L FEU and an80 year old 0.80 mg/L FEU. PATIENT WAS FASTINGP ERFORMED BY: Nugg-[id number] OpenBSD FoundationCritical access hospital [id number] TSH (THYROID STIMULATING HOR DOM) ([id number])Ordered By: Wire Brush Maker on 12-16-2022 TSH Qn 1.200 {uIU/mL} Normal 0.450-4.500 [facility]; [facility] Work Phone: Comment on above: PATIENT WAS FASTINGP ERFORMED BY: [id number] Open[employer] FoundationCritical access hospital [id number] Troponin I ([id number])Ordered By : Wire Brush Maker on 12-16-2022 Troponin I ([id number]) 13 ng/L Normal 0-22 [facility]; [facility] Work Phone: Comment on above: In order to distingu tessy acute elevations of high sensitiveTroponin from other clinical conditions, the UniversalDefinition of myocardial infarction stresses clinicalassessment and the need for serial measurements to observea rise and/or fall above the upper limit of the referenceinterval. PATIENT WAS FASTINGP ERFORMED BY: IRENE LabLuzern Solutions Dalptx5182 OpenBSD FoundationCritical access hospital [id number] HGB A1C ([id number])Ordered By: S ystem End Matcher on 11-05-2022 HbA1c (Bld) [Mass fraction] 5.7 % Abnormal 4.8-5.6 [facility]; [facility] Work Phone: Comment on above: . Prediabetes: 5.7 - 6.4 Diabetes: >6.4 Glycemic control for adults with diabetes: <7.0 PATIENT WAS FASTINGP ERFORMED BY: IRENE LabLuzern Solutions Xptoao8935 AdlogixNovant Health [facility] [id number] METABOLIC PANEL, COMPREHENSI VE (99133)Ordered By: Wire Brush Maker on 11-05-2022 Albumin [Mass/Vol] 4.3 g/dL Normal 3.8-4.9 [facility]; [facility] Work Phone: Comment on above: PATIENT WAS FASTINGP ERFORMED BY: IRENE LabLuzern Solutions Mraqsz[address] Shenick Network SystemsNovant Health [facility] [id number] Albumin/Globulin [Mass ratio] 1.7 {ratio} Normal 1.2-2.2 [facility]; [facility] Work Phone: Comment on above: PATIENT WAS FASTINGP ERFORMED BY: Lab[facility] Eonmiq8209 [facility] [id number] ALP [Catalytic activity/Vol] 52 U/L Normal 44-121 [facility]; [facility] Work Phone: Comment on above: PATIENT WAS FASTINGP ERFORMED BY: CB [facility] Trzede[address] [facility] [id number] ALT [Catalytic activity/Vol] 47 U/L Abnormal 0-44 [facility]; [facility] Work Phone: Comment on above: PATIENT WAS FASTINGP ERFORMED BY: [facility] Vjjkrg7140 [facility] [id number] AST [Catalytic activity/Vol] 34 U/L Normal 0-40 [facility]; [facility] Work Phone: Comment on above: PATIENT WAS FASTINGP ERFORMED BY: Meet Tdlyjp6707 [facility] [id number] Bilirubin [Mass/Vol] 0.9 mg/dL Normal 0.0-1.2 [facility] rehensive Internal Medicine; [facility] Work Phone: Comment on above: PATIENT WAS FASTINGP ERFORMED BY: Labsal[facility] Lvwrfn4095 [facility] [id number] Calcium [Mass/Vol] 9.7 mg/dL Normal 8.7-10.2 [facility]; [facility] Work Phone: Comment on above: PATIENT WAS FASTINGP ERFORMED BY: [facility] [facility] [id number] Chloride [Moles/Vol] 101 mmol/L Normal 96-106 [facility] rehensive Internal Medicine; [facility] Work Phone: Comment on above: PATIENT WAS FASTINGP ERFORMED BY: [facility] Gwnkif4127 [facility] [id number] CO2 [Moles/Vol] 22 mmol/L Normal 20-29 [facility] Internal [facility]; [facility] Work Phone: Comment on above: PATIENT WAS FASTINGP ERFORMED BY: [facility] Xtepve7806 [facility] [id number] Creatinine [Mass/Vol] 0.76 mg/dL Normal 0.76-1.27 [facility]; [facility] Work Phone: Comment on above: PATIENT WAS FASTINGP ERFORMED BY: [facility] Novdgm5670 [facility] [id number] GFR/1.73 sq M.predicted among non-blacks MDRD (S/P/Bld) [Vol rate/Area] 105 mL/min/{1.73_m2} Normal Comprehensi ve Internal Medicine; [facility] Work Phone: Comment on above: PATIENT WAS FASTINGP ERFORMED BY: CB [facility] Iaoxdz4748 [address]Dublin [place] [id number] Globulin (S) [Mass/Vol] 2.5 g/dL Normal 1.5-4.5 [facility] Internal Medicine; [facility] Work Phone: Comment on above: PATIENT WAS FASTINGP ERFORMED BY: CB [facility] Rgzqsv0014 [address]Dublin [place] [id number] Glucose [Mass/Vol] 125 mg/dL Abnormal 70-99 [facility] Internal Medicine; [facility] Internal Medicine Work Phone: Comment on above: PATIENT WAS FASTINGP ERFORMED BY: CB [facility] Tdbbho7791 [address]Dublin [place] [id number] Potassium [Moles/Vol] 4.9 mmol/L Normal 3.5-5.2 [facility] Internal Medicine; [facility] Internal Medicine Work Phone: Comment on above: PATIENT WAS FASTINGP ERFORMED BY: CB [facility] Akgtti9429 [address] RoadDublin [place] [id number] Protein [Mass/Vol] 6.8 g/dL Normal 6.0-8.5 [facility] Internal Medicine; [facility] Internal Medicine Work Phone: Comment on above: PATIENT WAS FASTINGP ERFORMED BY: CB [facility] Albdyd4963 [address] RoadDublin [place] [id number] Sodium [Moles/Vol] 138 mmol/L Normal 134-144 [facility] Internal Medicine; [facility] Internal Medicine Work Phone: Comment on above: PATIENT WAS FASTINGP ERFORMED BY: CB [facility] Eijypi5917 [address] RoadDublin [place] [id number] Urea nitrogen [Mass/Vol] 6 mg/dL Normal 6-24 [facility] Internal Medicine; [facility] Work Phone: Comment on above: PATIENT WAS FASTINGP ERFORMED BY: CB [facility] Bbpkfw7794 [address]Dublin [place] [id number] Urea nitrogen/Creatinine [Mass ratio] 8 mg/mg Abnormal 9-20 [facility]; [facility] Work Phone: Comment on above: PATIENT WAS FASTINGP ERFORMED BY: [facility] Jnblbo0047 [facility] [id number] LABORATORYOrdered By: Viviana Khan on 02-15-2022 Basophil, Absolute 0.1 103/mcL Invalid Interpretation Code 0.0 - 0.2 10^3/mcL AO Workflow SS Basophils/100 WBC (Bld) 0.5 % Invalid Interpretation Code 0.0 - 2.5 % AO Workflow SS Calcium [Mass/Vol] 9.2 mg/dL Invalid Interpretation Code 8.4 - 10.2 mg/dL AO ADM SS Chloride [Moles/Vol] 95 mmol/L Invalid Interpretation Code 98 - 107 mmol/L AO ADM SS CO2 [Moles/Vol] 26 mmol/L Invalid Interpretation Code 22 - 29 mmol/L AO ADM SS Creatinine [Mass/Vol] 0.83 mg/dL Invalid Interpretation Code 0.70 - 1.30 mg/dL AO ADM SS Electrolyte Balance 12.0 mEq/L Invalid Interpretation Code 4.0 - 15.0 mEq/L AO ADM SS Eosinophil, Absolute 0.5 103/mcL Invalid Interpretation Code 0.0 - 0.4 10^3/mcL AO Workflow SS Eosinophils/100 WBC (Bld) 4.4 % Invalid Interpretation Code 0.0 - 7.0 % AO Workflow SS Erythrocyte distribution width (RBC) [Ratio] 12.6 % Invalid Interpretation Code 11.5 - 14.5 % AO Workflow SS Glucose [Mass/Vol] 98 mg/dL Invalid Interpretation Code 70 - 105 mg/dL AO ADM SS Hematocrit (Bld) [Volume fraction] 49.4 % Invalid Interpretation Code 42.0 - 52.0 % AO Workflow SS Hemoglobin (Bld) [Mass/Vol] 17.3 G/dL Invalid Interpretation Code 14.0 - 18.0 G/dL AO Workflow SS Lymphocyte, Absolute 2.8 103/mcL Invalid Interpretation Code 0.8 - 3.9 10^3/mcL AO Workflow SS Lymphocytes/100 WBC (Bld) 27.3 % Invalid Interpretation Code 10.0 - 50.0 % AO Workflow SS MCH (RBC) [Entitic mass] 32.6 pg Invalid Interpretation Code 27.0 - 31.2 pg AO Workflow SS MCHC 35.1 G/dL Invalid Interpretation Code 31.8 - 35.4 G/dL AO Workflow SS MCV (RBC) [Entitic vol] 92.8 fL Invalid Interpretation Code 80.0 - 94.0 fL AO Workflow SS Monocyte distribution width Auto (Bld) [Entitic vol] 18.39 Invalid Interpretation Code 0.00 - 20.00 AO Workflow SS Comment on above: Result Comment: For ED adult patients suspected of sepsis, MDW<=20.0 does not rule out sepsis or risk of sepsis Monocyte, Absolute 1.0 103/mcL Invalid Interpretation Code 0.2 - 1.0 10^3/mcL AO Workflow SS Monocytes/100 WBC (Bld) 9.6 % Invalid Interpretation Code 1.7 - 13.0 % AO Workflow SS Neutrophil, Absolute 6.0 103/mcL Invalid Interpretation Code 2.9 - 6.2 10^3/mcL AO Workflow SS Neutrophils/100 WBC (Bld) 58.2 % Invalid Interpretation Code 37.0 - 80.0 % AO Workflow SS Platelet mean volume (Bld) [Entitic vol] 8.9 fL Invalid Interpretation Code 7.4 - 10.4 fL AO Workflow SS Platelets (Bld) [#/Vol] 209 103/mcL Invalid Interpretation Code 130 - 400 10^3/mcL AO Workflow SS Potassium [Moles/Vol] 3.7 mmol/L Invalid Interpretation Code 3.5 - 5.1 mmol/L AO ADM SS RBC (Bld) [#/Vol] 5.32 106/mcL Invalid Interpretation Code 4.04 - 6.13 10^6/mcL AO Workflow SS Sodium [Moles/Vol] 133 mmol/L Invalid Interpretation Code 136 - 145 mmol/L AO ADM SS Troponin I.cardiac DL <= 0.01 ng/mL [Mass/Vol] 5.2 ng/L Invalid Interpretation Code 0.0 - 76.2 ng/L AO ADM SS Urea nitrogen [Mass/Vol] 4 mg/dL Invalid Interpretation Code 7 - 18 mg/dL AO ADM SS Urea nitrogen/Creatinine [Mass ratio] 5 ratio Invalid Interpretation Code 7 - 27 ratio AO ADM SS WBC 10.3 103/mcL Invalid Interpretation Code 4.6 - 10.8 10^3/mcL AO Workflow SS LABORATORYOrdered By: SYSTEM SYSTEM on 02-15-2022 GFR 116 ml/min/1.73sqm Invalid Interpretation Code AO Chemistry S GFR Non- 96 ml/min/1.73sqm Invalid Interpretation Code AO Chemistry S CBC, PLATELETS & MANUAL DIFF ([id number])Ordered By: Wire Brush Maker on 02-13-2022 Basophils (Bld) [#/Vol] 0.0 10*3/uL Normal 0.0-0.2 [facility]; [facility] Work Phone: Comment on above: PATIENT NOT FASTINGP ERFORMED BY: CB [facility] Gxafao6321 [address] RoadDublin [place] [id number] Basophils/100 WBC (Bld) 0 % Normal [facility]; [facility] Work Phone: Comment on above: PATIENT NOT FASTINGP ERFORMED BY: CB [facility] Xgvauq5074 [address] RoadDublin [place] [id number] Eosinophils (Bld) [#/Vol] 0.3 10*3/uL Normal 0.0-0.4 [facility]; [facility] Work Phone: Comment on above: PATIENT NOT FASTINGP ERFORMED BY: CB [facility] Gjyuis5695 [address] RoadDublin [place] [id number] Eosinophils/100 WBC (Bld) 4 % Normal [facility]; [facility] Work Phone: Comment on above: PATIENT NOT FASTINGP ERFORMED BY: CB [facility] Cgypvy9085 [address] RoadDublin [place] [id number] Erythrocyte distribution width (RBC) [Ratio] 11.6 % Normal 11.6-15.4 [facility]; [facility] Work Phone: Comment on above: PATIENT NOT FASTINGP ERFORMED BY: CB [facility] Pvutmy1287 [address] RoadDublin [place] [id number] Hematocrit (Bld) [Volume fraction] 50.0 % Normal 37.5-51.0 [facility]; [facility] Work Phone: Comment on above: PATIENT NOT FASTINGP ERFORMED BY: CB [facility] Powqal1486 [address] RoadDublin [place] [id number] Hemoglobin (Bld) [Mass/Vol] 17.0 g/dL Normal 13.0-17.7 [facility]; [facility] Work Phone: Comment on above: PATIENT NOT FASTINGP ERFORMED BY: IRENE [facility] Mymwaw6770 [address] RoadDublin [place] [id number] Immature granulocytes (Bld) [#/Vol] 0.1 10*3/uL Normal 0.0-0.1 [facility]; [facility] Work Phone: Comment on above: PATIENT NOT FASTINGP ERFORMED BY: CB [facility] Qjoftr7823 [address] RoadDublin [place] [id number] Immature granulocytes/100 WBC (Bld) 1 % Normal [facility]; [facility] Work Phone: Comment on above: PATIENT NOT FASTINGP ERFORMED BY: CB [facility] Ushyus2420 [address] [facility] [place] [id number] Lymphocytes (Bld) [#/Vol] 1.5 10*3/uL Normal 0.7-3.1 [facility]; [facility] Work Phone: Comment on above: PATIENT NOT FASTINGP ERFORMED BY: CB [facility] Bsparc9935 [address] RoadCape Fear [facility] Hospitalin [place] [id number] Lymphocytes/100 WBC (Bld) 22 % Normal [facility]; [facility] Work Phone: Comment on above: PATIENT NOT FASTINGP ERFORMED BY: IRENE [facility] Vnfxta2314 [address] [facility] [id number] MCH (RBC) [Entitic mass] 31.9 pg Normal 26.6-33.0 [facility]; [facility] Work Phone: Comment on above: PATIENT NOT FASTINGP ERFORMED BY: CB [facility] Kqxrbz2719 [address] [facility]in [place] [id number] MCHC (RBC) [Mass/Vol] 34.0 g/dL Normal 31.5-35.7 [facility] Internal Medicine; [facility] Work Phone: Comment on above: PATIENT NOT FASTINGP ERFORMED BY: CB [facility] Ezkmyd2192 [address] RoadDublin [place] [id number] MCV (RBC) [Entitic vol] 94 fL Normal 79-97 [facility]; [facility] Work Phone: Comment on above: PATIENT NOT FASTINGP ERFORMED BY: IRENE Labcodameon LopezVneslu5318 [address] RoadDublin [place] [id number] Monocytes (Bld) [#/Vol] 0.5 10*3/uL Normal 0.1-0.9 [facility]; [facility] Work Phone: Comment on above: PATIENT NOT FASTINGP ERFORMED BY: CB [facility] Abrmfk9033 [address] RoadDublin [place] [id number] Monocytes/100 WBC (Bld) 7 % Normal [facility]; [facility] Work Phone: Comment on above: PATIENT NOT FASTINGP ERFORMED BY: CB Labcodameon DunnKyuwkd4203 [address] RoadDublin [place] [id number] Neutrophils (Bld) [#/Vol] 4.5 10*3/uL Normal 1.4-7.0 [facility]; [facility] Work Phone: Comment on above: PATIENT NOT FASTINGP ERFORMED BY: CB Labcodameon DunnGfplvt3975 [address] RoadDublin [place] [id number] Neutrophils/100 WBC (Bld) 66 % Normal [facility]; [facility] Work Phone: Comment on above: PATIENT NOT FASTINGP ERFORMED BY: CB [facility] Hmriay0204 [address] RoadDublin [place] [id number] Platelets (Bld) [#/Vol] 194 10*3/uL Normal 150-450 [facility]; [facility] Work Phone: Comment on above: PATIENT NOT FASTINGP ERFORMED BY: CB [facility] Qxlzat7304 [address] RoadDublin [place] [id number] RBC (Bld) [#/Vol] 5.33 10*6/uL Normal 4.14-5.80 [facility] Internal Medicine; [facility] Work Phone: Comment on above: PATIENT NOT FASTINGP ERFORMED BY: CB [facility] Bbghmc1518 [address] RoadDublin [place] [id number] WBC (Bld) [#/Vol] 6.9 10*3/uL Normal 3.4-10.8 [facility] Internal Medicine; [facility] Work Phone: Comment on above: PATIENT NOT FASTINGP ERFORMED BY: IRENE Labkalpesh Lopez6370 [address] Roadblin [place] [id number] METABOLIC PANEL, COMPREHENSI VE ([id number])Ordered By: Wire Brush Maker on 02-13-2022 Albumin [Mass/Vol] 4.2 g/dL Normal 3.8-4.9 [facility] Internal Medicine; [facility] Work Phone: Comment on above: PATIENT NOT FASTINGP ERFORMED BY: IRENE Labcodameon DunnBuispd5856 [address] RoadCape Fear [facility] Hospitalin [place] [id number] Albumin/Globulin [Mass ratio] 1.7 {ratio} Normal 1.2-2.2 [facility]; [facility] Work Phone: Comment on above: PATIENT NOT FASTINGP ERFORMED BY: IRENE Dunnlin6370 [address] [facility]in [place] [id number] ALP [Catalytic activity/Vol] 54 U/L Normal 44-121 [facility]; [facility] Work Phone: Comment on above: PATIENT NOT FASTINGP ERFORMED BY: IRENE Labkalpesh DunnZqhtsi3458 [address] [facility]bl[facility] [place] [id number] ALT [Catalytic activity/Vol] 54 U/L Abnormal 0-44 [facility]; [facility] Work Phone: Comment on above: PATIENT NOT FASTINGP ERFORMED BY: IRENE [facility] Doijaq8332 [address] [facility] Hospitalblin [place] [id number] AST [Catalytic activity/Vol] 36 U/L Normal 0-40 [facility]; [facility] Work Phone: Comment on above: PATIENT NOT FASTINGP ERFORMED BY: IRENE Labcodameon Hnztmi3469 [address] [facility] Hospitalbl[facility] [place] [id number] Bilirubin [Mass/Vol] 1.0 mg/dL Normal 0.0-1.2 Comp [facility] Internal Medicine; [facility] Work Phone: Comment on above: PATIENT NOT FASTINGP ERFORMED BY: CB [facility] Hzuylz5071 [address] RoadDublin [place] [id number] Calcium [Mass/Vol] 9.4 mg/dL Normal 8.7-10.2 [facility] Internal Medicine; [facility] Work Phone: Comment on above: PATIENT NOT FASTINGP ERFORMED BY: CB [facility] Igpevp4178 [address] RoadDublin [place] [id number] Chloride [Moles/Vol] 100 mmol/L Normal 96-106 Comp rehensive Internal Medicine; [facility] Work Phone: Comment on above: PATIENT NOT FASTINGP ERFORMED BY: CB [facility] Llagtx4725 [address] RoadDublin [place] [id number] CO2 [Moles/Vol] 21 mmol/L Normal 20-29 [facility] Internal [facility]; [facility] Work Phone: Comment on above: PATIENT NOT FASTINGP ERFORMED BY: CB [facility] Hildqj1200 [address] RoadDublin [place] [id number] Creatinine [Mass/Vol] 0.93 mg/dL Normal 0.76-1.27 [facility]; [facility] Work Phone: Comment on above: PATIENT NOT FASTINGP ERFORMED BY: CB [facility] Iecllf9150 [address] RoadDublin [place] [id number] GFR/1.73 sq M.predicted among non-blacks MDRD (S/P/Bld) [Vol rate/Area] 96 mL/min/{1.73_m2} Normal Comprehensiv e Internal Medicine; [facility] Work Phone: Comment on above: PATIENT NOT FASTINGP ERFORMED BY: CB [facility] Tcysch2465 [address] RoadDublin [place] [id number] Globulin (S) [Mass/Vol] 2.5 g/dL Normal 1.5-4.5 [facility]; [facility] Work Phone: Comment on above: PATIENT NOT FASTINGP ERFORMED BY: CB [facility] Mquvdi2703 [address] RoadDublin [place] [id number] Glucose [Mass/Vol] 219 mg/dL Abnormal 65-99 [facility] Internal Medicine; [facility] Work Phone: Comment on above: PATIENT NOT FASTINGP ERFORMED BY: CB [facility] Kaicbx9200 [address] RoadDublin [place] [id number] Potassium [Moles/Vol] 4.3 mmol/L Normal 3.5-5.2 [facility] Internal Medicine; [facility] Work Phone: Comment on above: PATIENT NOT FASTINGP ERFORMED BY: CB [facility] Ogxumh6743 [address] RoadDublin [place] [id number] Protein [Mass/Vol] 6.7 g/dL Normal 6.0-8.5 [facility] Internal Medicine; [facility] Work Phone: Comment on above: PATIENT NOT FASTINGP ERFORMED BY: CB [facility] Qzevvo6049 [address] RoadDublin [place] [id number] Sodium [Moles/Vol] 137 mmol/L Normal 134-144 [facility] Internal Medicine; [facility] Work Phone: Comment on above: PATIENT NOT FASTINGP ERFORMED BY: CB [facility] Esvmtf0368 [address] RoadDublin [place] [id number] Urea nitrogen [Mass/Vol] 7 mg/dL Normal 6-24 [facility] Internal Medicine; [facility] Work Phone: Comment on above: PATIENT NOT FASTINGP ERFORMED BY: CB [facility] Djvyxl2188 [address] RoadDublin [place] [id number] Urea nitrogen/Creatinine [Mass ratio] 8 mg/mg Abnormal 9-20 [facility] Internal Medicine; [facility] Work Phone: Comment on above: PATIENT NOT FASTINGP ERFORMED BY: CB [facility] Wldwci1383 [address] RoadDublin [place] [id number] TSH (THYROID STIMULATING HOR DOM) ([id number])Ordered By: Wire Brush Maker on 02-13-2022 TSH Qn 0.889 {uIU/mL} Normal 0.450-4.[address] [facility] Internal Medicine; [facility] Work Phone: Comment on above: PATIENT NOT FASTINGP ERFORMED BY: IRENE [facility] Sozphr7940 [facility] [id number] Rapid Strep Test, Office ([id number] [id number])Ordered By: Karthik Herzog on 04-17-2019 S. pyogenes Ag EIA Ql (Throat) Negative Normal [facility]; [facility] Work Phone: Rapid Strep Test, Office ([phone])Ordered By: Karthik Kimble on 04-17-2019 S. pyogenes Ag IA Ql (Unsp spec) Negative Normal [facility] Work Phone: Vital Signs Date Time Vital Sign Value Performing Clinician Facility 2025 10:42-0400 Body temperature 97.3 [degF] Gunjan Jimenez COMMUNITY HEALTH NURSE-C Work Phone: [facility] 2025 10:42-0400 Diastolic blood pressure 59 mm[Hg] Gunjan Jimenez COMMUNITY HEALTH NURSE-C Work Phone: [facility] 2025 10:42-0400 Heart rate 84 /min Gunjan Jimenez COMMUNITY HEALTH NURSE-C Work Phone: [facility] 2025 10:42-0400 Inhaled oxygen flow rate 3 L/min Gunjan Jimenez COMMUNITY HEALTH NURSE-C Work Phone: [facility] 2025 10:42-0400 Respiratory rate 18 /min Gunjan Jimenez COMMUNITY HEALTH NURSE-C Work Phone: [facility] 2025 10:42-0400 SaO2% (BldA) [Mass fraction] 97 % Gunjan Jimenez COMMUNITY HEALTH NURSE-C Work Phone: [facility] 2025 10:42-0400 Systolic blood pressure 130 mm[Hg] Gunjan Jimenez COMMUNITY HEALTH NURSE-C Work Phone: [facility] 04-23-2025 15:45-0400 Body height 182.88 cm Gunjan Jimenez COMMUNITY HEALTH NURSE-C Work Phone: [facility] 04-23-2025 15:45-0400 Body mass index (BMI) [Ratio] 41.8 kg/m2 Gunjan Tony COMMUNITY HEALTH NURSE-C Work Phone: [facility] 04-23-2025 15:45-0400 Body weight 139.7 kg Gunjan Tony COMMUNITY HEALTH NURSE-C Work Phone: [facility] 03-21-2025 18:08-0400 Body temperature 97.9 [degF] Gunjan Tony COMMUNITY HEALTH NURSE-C Work Phone: [facility] 03-21-2025 18:08-0400 Diastolic blood pressure 79 mm[Hg] Gunjan Tony COMMUNITY HEALTH NURSE-C Work Phone: [facility] 03-21-2025 18:08-0400 Heart rate 78 /min Gunjan Tony COMMUNITY HEALTH NURSE-C Work Phone: [facility] 03-21-2025 18:08-0400 Respiratory rate 19 /min Gunjan Tony COMMUNITY HEALTH NURSE-C Work Phone: [facility] 03-21-2025 18:08-0400 SaO2% (BldA) [Mass fraction] 98 % Gunjan Tony COMMUNITY HEALTH NURSE-C Work Phone: [facility] 03-21-2025 18:08-0400 Systolic blood pressure 133 mm[Hg] Gunjan Tony COMMUNITY HEALTH NURSE-C Work Phone: [facility] 03-21-2025 16:05-0400 Body height 182.88 cm Gunjan Tony COMMUNITY HEALTH NURSE-C Work Phone: [facility] 08-23-2024 11:27-[address] [facility]A ELENA [facility] 08-23-2024 11:27-[address] ROSA ELENA PALACIOS [facility] 08-23-2024 11:27-0500 Diastolic Blood Pressure Non-Invasive 93 mm[Hg] DR ROSA ELENA PALACIOS [facility] 08-23-2024 11:27-0500 Heart rate 73 /min DR ROSA ELENA PALACIOS [facility] 08-23-2024 11:27-0500 Respiratory rate 20 /min DR ROSA ELENA PALACIOS [facility] 08-23-2024 11:27-0500 Systolic Blood Pressure Non-Invasive 130 mm[Hg] DR ROSA ELENA PALACIOS [facility] 08-23-2024 08:06-0500 Heart rate 71 /min DR ROSA ELENA PALACIOS [facility] 08-23-2024 08:06-0500 Respiratory rate 20 /min DR ROSA ELENA PALACIOS [facility] 08-23-2024 07:55-0500 Heart rate 69 /min DR ROSA ELENA PALACIOS [facility] 08-23-2024 07:55-0500 Respiratory rate 20 /min DR ROSA ELENA PALACIOS [facility] 08-23-2024 07:22-[address] ROSA ELENA PALACIOS [facility] 08-23-2024 07:22-[address] ROSA ELENA PALACIOS [facility] 08-23-2024 07:22-0500 Body temperature 98.24 [degF] DR ROSA ELENA PALACIOS [facility] 08-23-2024 07:22-0500 Diastolic Blood Pressure Non-Invasive 88 mm[Hg] DR ROSA ELENA PALACIOS [facility] 08-23-2024 07:22-0500 Systolic Blood Pressure Non-Invasive 168 mm[Hg] DR ROSA ELENA PALACIOS [facility] 11-24-2023 20:05-[address] RENU ROTHMAN [facility] 11-24-2023 20:05-0400 Diastolic Blood Pressure Non-Invasive 61 mm[Hg] DR RENU ROTHMAN [facility] 11-24-2023 20:05-0400 Heart rate 68 /min DR RENU ROTHMAN [facility] 11-24-2023 20:05-0400 Reason For Taking VItal Signs DR RENU ROTHMAN [facility] 11-24-2023 20:05-0400 Respiratory rate 16 /min DR RENU ROTHMAN [facility] 11-24-2023 20:05-0400 Systolic Blood Pressure Non-Invasive 108 mm[Hg] DR RENU ROTHMAN [facility] 11-24-2023 19:16-[address] RENU R[facility]MAN [facility] 11-24-2023 19:16-0400 Diastolic Blood Pressure Non-Invasive 80 mm[Hg] DR RENU R[facility] 11-24-2023 19:16-0400 Heart rate 71 /min DR RENU R[facility] 11-24-2023 19:16-0400 Reason For Taking VItal Signs DR RENU ROTHMAN [facility] Comment on above: Result Comment: after 2nd dose given 11-24-2023 19:16-0400 Respiratory rate 20 /min DR RENU R[facility] 11-24-2023 19:16-0400 Systolic Blood Pressure Non-Invasive 116 mm[Hg] DR RENU R[facility]MAN [facility] 11-24-2023 19:08-0400 Diastolic Blood Pressure Non-Invasive 44 mm[Hg] DR RENU R[facility]MAN [facility] 11-24-2023 19:08-0400 Heart rate 71 /min DR RENU R[facility] 11-24-2023 19:08-0400 Reason For Taking VItal Signs DR RENU ROTHMAN [facility] Comment on above: Result Comment: 5 min post 1st dose 11-24-2023 19:08-0400 Respiratory rate 16 /min DR RENU R[facility] 11-24-2023 19:08-0400 Systolic Blood Pressure Non-Invasive 112 mm[Hg] DR RENU R[facility]MAN [facility] 11-24-2023 18:34-0400 Body temperature 98.24 [degF] DR RENU R[facility]MAN [facility] 11-24-2023 18:34-0400 Body weight [address] RENU R[facility] 11-24-2023 18:34-0400 Heart rate 78 /min DR RENU ROTHMAN [facility] 05-24-2023 13:41-0500 Body height 180.34 cm RISSA Jimenez Work Phone: [facility] 05-24-2023 13:41-0500 Body mass index (BMI) [Ratio] 41 kg/m2 COMMUNITY HEALTH NURSE-C Gunjan Jimenez Work Phone: [facility] 05-24-2023 13:41-0500 Body weight 133.35 kg COMMUNITY HEALTH NURSE-C Gunjan Jimenez Work Phone: [facility] 05-24-2023 13:41-0500 Diastolic blood pressure 82 mm[Hg] COMMUNITY HEALTH NURSE-C Gunjan Alvesam Work Phone: [facility] 05-24-2023 13:41-0500 Heart rate 80 /min COMMUNITY HEALTH NURSE-C Gunjan Alvesam Work Phone: [facility] 05-24-2023 13:41-0500 Respiratory rate 18 /min COMMUNITY HEALTH NURSE-C Gunjan Alvesam Work Phone: [facility] 05-24-2023 13:41-0500 Systolic blood pressure 139 mm[Hg] COMMUNITY HEALTH NURSE-C Gunjan Tony Work Phone: [facility] 04-09-2023 09:17-0400 Heart rate 72 /min COMMUNITY HEALTH NURSE-C Tanja Zamanzeba COMMUNITY HEALTH NURSE Work Phone: [facility] 04-09-2023 09:12-0400 Body temperature 98.1 [degF] COMMUNITY HEALTH NURSE-C Tanja Juniezeba COMMUNITY HEALTH NURSE Work Phone: [facility] 04-09-2023 09:12-0400 Diastolic blood pressure 89 mm[Hg] COMMUNITY HEALTH NURSE-C Tanja Mahajana COMMUNITY HEALTH NURSE Work Phone: [facility] 04-09-2023 09:12-0400 Respiratory rate 17 /min COMMUNITY HEALTH NURSE-C Tanja Zamanesa COMMUNITY HEALTH NURSE Work Phone: [facility] 04-09-2023 09:12-0400 SaO2% (BldA) [Mass fraction] 99 % COMMUNITY HEALTH NURSE-C Tanja Mahajana COMMUNITY HEALTH NURSE Work Phone: [facility] 04-09-2023 09:12-0400 Systolic blood pressure 149 mm[Hg] COMMUNITY HEALTH NURSE-C Tanja Mahajana COMMUNITY HEALTH NURSE Work Phone: [facility] 04-09-2023 00:22-0400 Inhaled oxygen flow rate 2 L/min COMMUNITY HEALTH NURSE-C Tanja Mahajana COMMUNITY HEALTH NURSE Work Phone: [facility] 04-08-2023 08:42-0400 Body height 180.34 cm COMMUNITY HEALTH NURSE-C Tanja Mahajana COMMUNITY HEALTH NURSE Work Phone: [facility] 04-08-2023 08:42-0400 Body weight 132.44 kg COMMUNITY HEALTH NURSE-C Tanja Mahajana COMMUNITY HEALTH NURSE Work Phone: [facility] 04-07-2023 09:19-0400 Body mass index (BMI) [Ratio] 40.7 kg/m2 COMMUNITY HEALTH NURSE-C Tajna Mahajana COMMUNITY HEALTH NURSE Work Phone: [facility] 03-24-2023 13:11-0400 Body mass index (BMI) [Ratio] 40.4 kg/m2 COMMUNITY HEALTH NURSE-C Tanja Zamanesa COMMUNITY HEALTH NURSE Work Phone: [facility] 03-24-2023 13:11-0400 Body weight 131.54 kg COMMUNITY HEALTH NURSE-C Tanja Mahajana COMMUNITY HEALTH NURSE Work Phone: [facility] 03-24-2023 13:11-0400 Diastolic blood pressure 91 mm[Hg] COMMUNITY HEALTH NURSE-C Tanja Mahajana COMMUNITY HEALTH NURSE Work Phone: [facility] 03-24-2023 13:11-0400 Heart rate 85 /min COMMUNITY HEALTH NURSE-C Tanja Zamanesa COMMUNITY HEALTH NURSE Work Phone: [facility] 03-24-2023 13:11-0400 Respiratory rate 18 /min COMMUNITY HEALTH NURSE-C Tanja Zamanesa COMMUNITY HEALTH NURSE Work Phone: [facility] 03-24-2023 13:11-0400 Systolic blood pressure 147 mm[Hg] COMMUNITY HEALTH NURSE-C Tanja Zamanesa COMMUNITY HEALTH NURSE Work Phone: [facility] 02-16-2023 09:51-0400 Body mass index (BMI) [Ratio] 40.7 kg/m2 COMMUNITY HEALTH NURSE-C Tanja Ciesa COMMUNITY HEALTH NURSE Work Phone: [facility] 02-16-2023 09:51-0400 Body weight 132.44 kg COMMUNITY HEALTH NURSE-C Tanja Bell COMMUNITY HEALTH NURSE Work Phone: [facility] 02-16-2023 09:51-0400 Diastolic blood pressure 91 mm[Hg] COMMUNITY HEALTH NURSE-C Tanja Bell COMMUNITY HEALTH NURSE Work Phone: [facility] 02-16-2023 09:51-0400 Heart rate 90 /min COMMUNITY HEALTH NURSE-C Tanja Bell COMMUNITY HEALTH NURSE Work Phone: [facility] 02-16-2023 09:51-0400 Respiratory rate 18 /min COMMUNITY HEALTH NURSE-C Tanja Bell COMMUNITY HEALTH NURSE Work Phone: [facility] 02-16-2023 09:51-0400 Systolic blood pressure 160 mm[Hg] COMMUNITY HEALTH NURSE-C Tanja Bell COMMUNITY HEALTH NURSE Work Phone: [facility] 01-24-2023 16:33-0400 Blood Pressure Cuff Size CATHERINE JARVIS [employer] [facility] 01-24-2023 16:33-0400 Blood Pressure Location CATHERINE JARVIS DO [facility] 01-24-2023 16:33-0400 Blood Pressure Method CATHERINE RUTHT DO [facility] 01-24-2023 16:33-0400 Body temperature 98.96 [degF] CATHERINE RUTHT DO [facility] 01-24-2023 16:33-0400 Diastolic Blood Pressure Non-Invasive 88 1 CATHERINE RUTHT DO [facility] 01-24-2023 16:33-0400 Heart rate 95 /min CATHERINE RUTHT DO [facility] 01-24-2023 16:33-0400 Reason For Taking VItal Signs CATHERINE RUTHT DO [facility] 01-24-2023 16:33-0400 Systolic Blood Pressure Non-Invasive 138 1 CATHERINE JARVIS DO [facility] 12-16-2022 11:28-0400 Body height 179.07 cm Tammy Slarb [employer] [facility] Work Phone: 12-16-2022 11:28-0400 Body mass index (BMI) [Ratio] 41.02 kg/m2 Tammy Slarb [employer] [facility] Work Phone: 12-16-2022 11:28-0400 Body surface area Derived from formula 2.46 m2 Tammy Slarb [employer] [facility]; [facility] Work Phone: 12-16-2022 11:28-040 Body temperature 98.2 [degF] Tammy Slarb [employer] [facility]; [facility] Work Phone: Comment on above: Method: Temporal 12-16-2022 11:28-0400 Body weight 131.54 kg Tammy Slarb [employer] [facility]; [facility] Work Phone: 12-16-2022 11:28-0400 Diastolic blood pressure 82 mm[Hg] Tammy Slarb [employer] [facility]; [facility] Work Phone: Comment on above: Patient Position: Sitting; Cuff Location : Left Arm; Cuff Size: Standard 12-16-2022 11:28-0400 Heart rate 81 /min Tammy Slarb [employer] [facility]; [facility] Work Phone: Comment on above: Pattern: Regular 12-16-2022 11:28-0400 Respiratory rate 16 /min Tammy Slarb [employer] [facility]; [facility] Work Phone: Comment on above: Pattern: Unlabored 12-16-2022 11:28-0400 SaO2% (BldA) [Mass fraction] 97 % Tammy Slarb [employer] [facility]; [facility] Work Phone: Comment on above: Room air 12-16-2022 11:28-0400 Systolic blood pressure 132 mm[Hg] Tammy Slarb [employer] [facility]; [facility] Work Phone: Comment on above: Patient Position: Sitting; Cuff Location : Left Arm; Cuff Size: Standard 08-09-2022 15:42-0500 Body temperature 97.7 [degF] TOBIN CORLEY MD [facility] 08-09-2022 15:42-0500 Body weight 137 kg TOBIN CORLEY MD [facility] 08-09-2022 15:42-0500 Diastolic Blood Pressure Non-Invasive 88 1 TOBIN CORLEY MD [facility] 08-09-2022 15:42-0500 Heart rate 83 /min TOBIN CORLEY MD [facility] 08-09-2022 15:42-0500 Respiratory rate 20 /min TOBIN CORLEY MD [facility] 08-09-2022 15:42-0500 Systolic Blood Pressure Non-Invasive 154 1 TOBIN CORLEY MD [facility] 07-24-2022 11:35-0500 Body height 179.07 cm Magdalena Han MA [facility]; [facility] Work Phone: 07-24-2022 11:35-0500 Body mass index (BMI) [Ratio] 41.73 kg/m2 Magdalena Han MA [facility]; [facility] Work Phone: 07-24-2022 11:35-0500 Body surface area Derived from formula 2.48 m2 Magdalena Han MA [facility]; [facility] Work Phone: 07-24-2022 11:35-0500 Body temperature 97.8 [degF] Magdalena Han MA [facility]; [facility] Work Phone: 07-24-2022 11:35-0500 Body weight 133.81 kg Magdalena Han MA [facility]; [facility] Work Phone: 07-24-2022 11:35-0500 Diastolic blood pressure 80 mm[Hg] Magdalena Han MA [facility]; [facility] Work Phone: Comment on above: Patient Position: Sitting; Cuff Location : Left Arm; Cuff Size: Standard 07-24-2022 11:35-0500 Heart rate 96 /min Magdalena Han MA [facility]; [facility] Work Phone: Comment on above: Pattern: Regular 07-24-2022 11:35-0500 Respiratory rate 18 /min Magdalena Han MA [facility]; [facility] Work Phone: Comment on above: Pattern: Unlabored 07-24-2022 11:35-0500 SaO2% (BldA) [Mass fraction] 97 % Magdalena Han MA [facility]; [facility] Work Phone: Comment on above: Room air 07-24-2022 11:35-0500 Systolic blood pressure 140 mm[Hg] Magdalena Han MA [facility]; [facility] Work Phone: Comment on above: Patient Position: Sitting; Cuff Location : Left Arm; Cuff Size: Standard 04-03-2022 11:40-0400 Body height 179.07 cm Karthik Herzog LPN [facility]; [facility] Work Phone: 04-03-2022 11:40-0400 Body mass index (BMI) [Ratio] 41.73 kg/m2 Karthik Herzog LPN [facility]; [facility] Work Phone: 04-03-2022 11:40-0400 Body surface area Derived from formula 2.48 m2 Karthik Herzog LPN [facility]; [facility] Work Phone: 04-03-2022 11:40-0400 Body weight 133.81 kg Karthik Herzog LPN [facility]; [facility] Work Phone: 04-03-2022 11:40-0400 Diastolic blood pressure 76 mm[Hg] Karthik Herzog LPN [facility]; [facility] Work Phone: Comment on above: Patient Position: Sitting; Cuff Location : Left Arm; Cuff Size: Standard 04-03-2022 11:40-0400 Systolic blood pressure 156 mm[Hg] Karthik Herzog LPN [facility]; [facility] Work Phone: Comment on above: Patient Position: Sitting; Cuff Location : Left Arm; Cuff Size: Standard 03-20-2022 11:39-0400 Body height 179.07 cm Magdalena Han MA [facility]; [facility] Work Phone: 03-20-2022 11:39-0400 Body mass index (BMI) [Ratio] 41.73 kg/m2 Magdalena Han MA [facility]; [facility] Work Phone: 03-20-2022 11:39-0400 Body surface area Derived from formula 2.48 m2 Magdalena Han MA [facility]; [facility] Work Phone: 03-20-2022 11:39-0400 Body temperature 97.4 [degF] Magdalena Han MA [facility]; [facility] Work Phone: 03-20-2022 11:39-0400 Body weight 133.81 kg Magdalena Han MA [facility]; [facility] Work Phone: 03-20-2022 11:39-0400 Diastolic blood pressure 84 mm[Hg] Magdalena Han MA [facility]; [facility] Work Phone: Comment on above: Patient Position: Sitting; Cuff Location : Left Arm; Cuff Size: Standard 03-20-2022 11:39-0400 Heart rate 89 /min Magdalena Han MA [facility]; [facility] Work Phone: Comment on above: Pattern: Regular 03-20-2022 11:39-0400 Respiratory rate 17 /min Magdalena Han MA [facility]; [facility] Work Phone: Comment on above: Pattern: Unlabored 03-20-2022 11:39-0400 SaO2% (BldA) [Mass fraction] 96 % Magdalena Han MA [facility]; [facility] Work Phone: Comment on above: Room air 03-20-2022 11:39-0400 Systolic blood pressure 142 mm[Hg] Magdalena Han MA [facility]; [facility] Work Phone: Comment on above: Patient Position: Sitting; Cuff Location : Left Arm; Cuff Size: Standard 02-15-2022 19:42-0400 Diastolic blood pressure 98 mm[Hg] DR MARJAN MATOS DO [facility] 02-15-2022 19:42-0400 Heart rate 85 /min DR MARJAN MATOS DO [facility] 02-15-2022 19:42-0400 Reason For Taking VItal Signs DR MARJAN MATOS DO [facility] 02-15-2022 19:42-0400 Respiratory rate 18 /min DR MARJAN MATOS DO [facility] 02-15-2022 19:42-0400 Systolic blood pressure 143 mm[Hg] DR MARJAN MATOS DO [facility] 02-15-2022 18:40-0400 Body temperature 98.24 [degF] DR MARJAN MATOS DO [facility] 02-15-2022 18:40-0400 Diastolic blood pressure 85 mm[Hg] DR MARJAN MATOS DO [facility] 02-15-2022 18:40-0400 Heart rate 97 /min DR MARJAN MATOS DO [facility] 02-15-2022 18:40-0400 Respiratory rate 18 /min DR MARJAN MATOS DO [facility] 02-15-2022 18:40-0400 Systolic blood pressure 133 mm[Hg] DR MARJAN MATOS DO [facility] 02-13-2022 11:21-0400 Body height 179.07 cm Tammy Slarb [employer] [facility]; [facility] Work Phone: 02-13-2022 11:21-0400 Body mass index (BMI) [Ratio] 41.73 kg/m2 Tammy Slarb [employer] [facility]; [facility] Work Phone: 02-13-2022 [id number] Body surface area Derived from formula 2.48 m2 Tammy Slarb [employer] [facility]; [facility] Work Phone: 02-13-2022 11:040 Body temperature 97.1 [degF] Tammy Slarb [employer] [facility]; [facility] Work Phone: 02-13-2022 11:21-040 Body weight 133.81 kg Tammy Slarb [employer] [facility]; [facility] Work Phone: 02-13-2022 [id number] Diastolic blood pressure 82 mm[Hg] Tammy Slarb [employer] [facility]; [facility] Work Phone: Comment on above: Patient Position: Sitting; Cuff Location : Left Arm; Cuff Size: Standard 02-13-2022 11:21-0400 Heart rate 101 /min Tammy Slarb [employer] [facility]; [facility] Work Phone: Comment on above: Pattern: Regular 02-13-2022 11:21-0400 Respiratory rate 18 /min Tammy Slarb [employer] [facility]; [facility] Work Phone: Comment on above: Pattern: Unlabored 02-13-2022 11:21-0400 SaO2% (BldA) [Mass fraction] 95 % Tammy Slarb [employer] [facility]; [facility] Work Phone: Comment on above: Room air 02-13-2022 11:21-0400 Systolic blood pressure 150 mm[Hg] Tammy Slarb [employer] [facility]; [facility] Work Phone: Comment on above: Patient Position: Sitting; Cuff Location : Left Arm; Cuff Size: Standard 10-10-2021 11:41-0400 Body height 179.07 cm Karthik Herzog LPN [facility]; [facility] Work Phone: 10-10-2021 11:41-0400 Body mass index (BMI) [Ratio] 42.69 kg/m2 Karthik Herzog LPN [facility]; [facility] Work Phone: 10-10-2021 11:41-0400 Body surface area Derived from formula 2.5 m2 Karthik Hezrog LPN [facility]; [facility] Work Phone: 10-10-2021 11:41-0400 Body temperature 97.8 [degF] Karthik Herzog LPN [facility]; [facility] Work Phone: Comment on above: Method: Infrared 10-10-2021 11:41-0400 Body weight 136.9 kg Karthik Herzog LPN [facility]; [facility] Work Phone: 10-10-2021 11:41-0400 Diastolic blood pressure 86 mm[Hg] Karthik Herzog LPN [facility]; [facility] Work Phone: Comment on above: Patient Position: Sitting; Cuff Location : Left Arm; Cuff Size: Standard 10-10-2021 11:41-0400 Heart rate 105 /min Karthik Herzog LPN [facility]; [facility] Work Phone: Comment on above: Pattern: Regular 10-10-2021 11:41-0400 Respiratory rate 18 /min Karthik Herzog LPN [facility]; [facility] Work Phone: Comment on above: Pattern: Unlabored 10-10-2021 11:41-0400 SaO2% (BldA) [Mass fraction] 95 % Karthik Herzog LPN [facility]; [facility] Work Phone: Comment on above: Room air 10-10-2021 11:41-0400 Systolic blood pressure 142 mm[Hg] Karthik Herzog LPN [facility]; [facility] Work Phone: Comment on above: Patient Position: Sitting; Cuff Location : Left Arm; Cuff Size: Standard 07-26-2020 10:41-0500 BMI (Body Mass Index) 42.44 kg/m2 Karthik Herzog LPN [facility]; [facility] Work Phone: 07-26-2020 10:41-0500 Body Temperature 97.8 [degF] Karthik Herzog LPN [facility]; [facility] Work Phone: Comment on above: Method: Infrared 07-26-2020 10:41-0500 Body weight 136.09 kg Karthik Herzog LPN [facility]; [facility] Work Phone: 07-26-2020 10:41-0500 BP Diastolic 84 mm[Hg] Karthik Herzog LPN [facility]; [facility] Work Phone: Comment on above: Patient Position: Sitting; Cuff Location : Left Arm; Cuff Size: Standard 07-26-2020 10:41-0500 BP Systolic 150 mm[Hg] Karthik Herzog LPN [facility]; [facility] Work Phone: Comment on above: Patient Position: Sitting; Cuff Location : Left Arm; Cuff Size: Standard 07-26-2020 10:41-0500 BSA (Body Surface Area) 2.49 m2 Karthik Herzog LPN [facility]; [facility] Work Phone: 07-26-2020 10:41-0500 Height 179.07 cm Karthik Herzog LPN [facility]; [facility] Work Phone: 07-26-2020 10:41-0500 Pulse (Heart Rate) 102 /min Karthik Herzog [facility] Work Phone: Comment on above: Pattern: Regular 07-26-2020 10:41-0500 Pulse Oximetry 96 % Tanja Bell [facility]; [facility] Work Phone: Comment on above: Room air 07-26-2020 10:41-0500 Respiratory Rate 18 /min Karthik Herzog LPN [facility]; [facility] Work Phone: Comment on above: Pattern: Unlabored 07-26-2020 10:41-0500 SaO2% (BldA) [Mass fraction] 96 % Karthik Herzog LPN [facility]; [facility] Work Phone: Comment on above: Room air 04-17-2019 12:48-0400 BMI (Body Mass Index) 42.44 kg/m2 Karthik Herzog LPN [facility] Work Phone: 04-17-2019 12:48-0400 Body Temperature 97.2 [degF] Karthik Herzog LPN [facility] Work Phone: Comment on above: Method: Temporal 04-17-2019 12:48-0400 Body weight 136.09 kg Karthik Herzog LPN [facility] Work Phone: 04-17-2019 12:48-0400 BP Diastolic 78 mm[Hg] Karthik Herzog LPN [facility] Work Phone: Comment on above: Patient Position: Sitting; Cuff Location : Left Arm; Cuff Size: Standard 04-17-2019 12:48-0400 BP Systolic 144 mm[Hg] Karthik Herzog LPN [facility] Work Phone: Comment on above: Patient Position: Sitting; Cuff Location : Left Arm; Cuff Size: Standard 04-17-2019 12:48-0400 BSA (Body Surface Area) 2.49 m2 Karthik Herzog LPN [facility] Work Phone: 04-17-2019 12:48-0400 Height 179.07 cm Karthik Herzog LPN [facility] Work Phone: 04-17-2019 12:48-0400 Pulse (Heart Rate) 98 /min Karthik Herzog L[facility] Work Phone: Comment on above: Pattern: Regular 04-17-2019 12:48-0400 Pulse Oximetry 97 % Tanja Bell [facility] Work Phone: Comment on above: Room air 04-17-2019 12:48-0400 Respiratory Rate 18 /min Karthik Herzog LPN [facility] Work Phone: Comment on above: Pattern: Unlabored 04-17-2019 12:48-0400 SaO2% (BldA) [Mass fraction] 97 % Karthik Herzog [employer] [facility]; [facility] Work Phone: Comment on above: Room air 02-10-2019 13:47-0400 BMI (Body Mass Index) 42.35 kg/m2 Tammy Mathis [employer] [facility] Work Phone: 02-10-2019 13:47-0400 Body Temperature 97.8 [degF] Tammy Jensenrb [employer] [facility] Work Phone: 02-10-2019 13:47-0400 Body weight 135.8 kg Tammy Jensenrb [employer] [facility] Work Phone: 02-10-2019 13:47-0400 BP Diastolic 88 mm[Hg] Tammy Mathis [employer] [facility] Work Phone: Comment on above: Patient Position: Sitting; Cuff Location : Left Arm; Cuff Size: Standard 02-10-2019 13:47-0400 BP Systolic 132 mm[Hg] Tammy Mathis [employer] [facility] Work Phone: Comment on above: Patient Position: Sitting; Cuff Location : Left Arm; Cuff Size: Standard 02-10-2019 13:47-0400 BSA (Body Surface Area) 2.49 m2 Tammy Mathis [employer] [facility] Work Phone: 02-10-2019 13:47-0400 Height 179.07 cm Tammy Mathis [employer] [facility] Work Phone: 02-10-2019 13:47-0400 Pulse (Heart Rate) 91 /min Tammy Mathis [employer] [facility] Work Phone: Comment on above: Pattern: Regular 02-10-2019 13:47-0400 Pulse Oximetry 97 % Tanja Zamanzebjuan david [facility] Work Phone: Comment on above: Room air 02-10-2019 13:47-0400 Respiratory Rate 16 /min Tammy Mathis [employer] [facility] Work Phone: Comment on above: Pattern: Unlabored 02-10-2019 13:47-0400 SaO2% (BldA) [Mass fraction] 97 % Tammy Del MILLER [facility]; [facility] Work Phone: Comment on above: Room air 02-23-2018 13:53-0400 BMI (Body Mass Index) 38.92 kg/m2 Marcy Menard [facility] Work Phone: 02-23-2018 13:53-0400 Body Temperature 97 [degF] Marcy Menrad [facility] Work Phone: Comment on above: Method: Temporal 02-23-2018 13:53-0400 Body weight 124.8 kg Marcy Menard [facility] Work Phone: 02-23-2018 13:53-0400 BP Diastolic 98 mm[Hg] Marcy Menard [facility] Work Phone: Comment on above: Patient Position: Sitting; Cuff Location : Left Arm; Cuff Size: Standard 02-23-2018 13:53-0400 BP Systolic 158 mm[Hg] Marcy Menard [facility] Work Phone: Comment on above: Patient Position: Sitting; Cuff Location : Left Arm; Cuff Size: Standard 02-23-2018 13:53-0400 BSA (Body Surface Area) 2.4 m2 Marcy Menard [facility] Work Phone: 02-23-2018 13:53-0400 Height 179.07 cm Marcy Menard [facility] Work Phone: 02-23-2018 13:53-0400 Pulse (Heart Rate) 105 /min Marcy Menard [facility] Work Phone: Comment on above: Pattern: Regular 02-23-2018 13:53-0400 Pulse Oximetry 97 % Tanja Bell [facility] Work Phone: Comment on above: Room air 02-23-2018 13:53-0400 Respiratory Rate 20 /min Marcy Menard [facility] Work Phone: Comment on above: Pattern: Unlabored 02-23-2018 13:53-0400 SaO2% (BldA) [Mass fraction] 97 % Marcy Menard [facility]; [facility] Work Phone: Comment on above: Room air 02-23-2018 [id number] Weight 124.8 kg Tanja Bell [facility] Work Phone: Encounters Encounter Date Encounter Type Care Provider Facility Start: 05-24-2025 ambulatory Shaniqua Harrington Facilit y:[facility] Start: 05-21-2025 End: 05-21-2025 Emergency department patient visit Chapincito Mckenzie Facility:[facility] Start: 05-08-2025 End: 05-08-2025 ambulatory Shnaiqua Harrington [place] [place] Start: 2025 Non-patient / Non-visit Dr. Ace Renteria MD -[facility] Start: 04-23-2025 End: 2025 ambulatory Shaniqua Harrington Facility:[facility] Start: 04-23-2025 End: 2025 Evaluation and management of inpatient Dr. Ace Renteria MD -[facility] Work Phone: Start: 04-23-2025 End: 2025 observation encounter Gunjan KWOK Work Phone: -Medical Surgical 3 Start: 04-23-2025 ambulatory Shaniqua Harrington Facilit y:[facility] Start: 04-23-2025 Non-patient / Non-visit Dr. Ace Renteria MD -[facility] Start: 03-21-2025 End: 03-21-2025 Emergency department patient visit Gunjan KWOK Work Phone: -Emergency Department Work Phone: Start: 11-10-2024 End: 11-10-2024 ambulatory Mitzy LEWIS Facility:[facility] Start: 08-23-2024 End: 08-23-2024 Emergency department patient visit DR ROSA ELENA PALACIOS MD [facility] Start: 08-09-2024 End: 08-09-2024 Emergency department patient visit Ed Physician Provider Facility:[facility] Start: 11-24-2023 End: 11-24-2023 Emergency department patient visit GUNJAN JIMENEZ STOCK REPAIRER-MAPPING EDITOR Facility:B Start: 11-24-2023 End: 11-24-2023 Emergency department patient visit DR RENU ROTHMAN MD [facility] Start: 09-01-2023 Non-patient / Non-visit COMMUNITY HEALTH NURSE-C Gunjan Jimenez Work Phone: [facility] Work Phone: Start: 08-31-2023 Non-patient / Non-visit COMMUNITY HEALTH NURSE-C Gunjan Jimenez Work Phone: [facility] Start: 08-31-2023 End: 08-31-2023 ambulatory COMMUNITY HEALTH NURSE-C Gunjan Jimenez Work Phone: [facility] Work Phone: Start: 08-31-2023 End: 08-31-2023 Patient encounter procedure COMMUNITY HEALTH NURSE-C [facility]jan [facility] Start: 08-16-2023 End: 08-16-2023 Patient encounter procedure COMMUNITY HEALTH NURSE-C Gunjan Jimenez Work Phone: [facility]Laboratory Work Phone: Start: 05-24-2023 End: 05-24-2023 Patient encounter procedure COMMUNITY HEALTH NURSE-C Gunjan Jimenez Work Phone: [facility] Work Phone: Start: 04-09-2023 Non-patient / Non-visit COMMUNITY HEALTH NURSE-C Tanja Bell COMMUNITY HEALTH NURSE Work Phone: [facility] Start: 04-08-2023 End: 04-09-2023 Evaluation and management of inpatient COMMUNITY HEALTH NURSE-C Tanja Bell COMMUNITY HEALTH NURSE Work Phone: [facility]Progressive [facility] Unit Work Phone: Start: 04-08-2023 End: 04-09-2023 observation encounter COMMUNITY HEALTH NURSE-C Tanja Bell COMMUNITY HEALTH NURSE Work Phone: [facility] Work Phone: Start: 03-24-2023 End: 03-24-2023 Patient encounter procedure COMMUNITY HEALTH NURSE-C Tanja Bell COMMUNITY HEALTH NURSE Work Phone: [facility] Work Phone: Start: 03-23-2023 Non-patient / Non-visit COMMUNITY HEALTH NURSE-C Tanja Mahajana COMMUNITY HEALTH NURSE Work Phone: [facility] Work Phone: Start: 03-05-2023 Non-patient / Non-visit COMMUNITY HEALTH NURSE-C Tanja Mahajana COMMUNITY HEALTH NURSE Work Phone: [facility] Start: 03-05-2023 End: 03-05-2023 Patient encounter procedure COMMUNITY HEALTH NURSE-C Tanja Mahajana COMMUNITY HEALTH NURSE [facility] Work [facility]: Start: 02-26-2023 Review Gunjan Jimenez MAPPING EDITOR Work Phone: [facility] Start: 02-16-2023 End: 02-16-2023 Patient encounter procedure COMMUNITY HEALTH NURSE-C Tanja Bell COMMUNITY HEALTH NURSE Work Phone: [facility] Work Phone: Start: 01-24-2023 End: 01-24-2023 Emergency department patient visit GUNJAN JIMENEZ APRN-MAPPING EDITOR Facility:B Start: 01-24-2023 End: 01-24-2023 Emergency department patient visit CATHERINE JARVIS [facility] Start: 01-08-2023 ambulatory Ms. Gunjan E Tony Fa cility:9 Start: 01-01-2023 Non-patient / Non-visit COMMUNITY HEALTH NURSE-C Tanja Bell COMMUNITY HEALTH NURSE Work Phone: [facility] Start: 01-01-2023 End: 01-01-2023 Patient encounter procedure COMMUNITY HEALTH NURSE-C Tanja Bell COMMUNITY HEALTH NURSE Work Phone: [facility]Cardi[facility] Services Work Phone: Start: 12-18-2022 End: 12-18-2022 ambulatory COMMUNITY HEALTH NURSE-C Tanja Bell COMMUNITY HEALTH NURSE Work Phone: [facility] Work Phone: Start: 12-18-2022 End: 12-18-2022 Patient encounter procedure COMMUNITY HEALTH NURSE-C Tanja Bell COMMUNITY HEALTH NURSE Work Phone: [facility] Start: 12-18-2022 End: 12-18-2022 Patient encounter procedure Gunjan Jimenez CNP Work Phone: [facility] Start: 12-17-2022 Review Gunjan Jimenez CNP Work Phone: [facility] Start: 12-17-2022 End: 12-17-2022 Annotation/Addendum Gunjan Jimenez CNP Work Phone: [facility] Start: 12-16-2022 End: 12-16-2022 Patient encounter procedure COMMUNITY HEALTH NURSE-C Tanja Bell COMMUNITY HEALTH NURSE Work Phone: [facility] Start: 12-16-2022 End: 12-17-2022 Office outpatient visit 25 minutes Gunjan Jimenez CNP Work Phone: [facility] Start: 12-16-2022 Review Gunjan Jimenez CNP Work Phone: [facility] Start: 08-10-2022 End: 08-10-2022 Patient encounter procedure OG JOHN [facility] Start: 08-09-2022 End: 08-09-2022 Emergency department patient visit TOBIN CORLEY MD [facility] Start: 07-29-2022 Review Gunjan Jimenez CNP Work Phone: [facility] Start: 07-24-2022 ambulatory Gunjan Jimenez [facility] Start: 07-24-2022 End: 07-29-2022 Office outpatient visit 25 minutes Gunjan Jimenez GINA Work Phone: [facility] Start: 07-24-2022 Review Gunjan Jimenez GINA Work Phone: [facility] Start: 04-03-2022 End: 04-03-2022 Patient encounter procedure Gunjan Jimenez GINA Work Phone: [facility] Start: 03-20-2022 End: 03-25-2022 Office outpatient visit 25 minutes Gunjan Jimenez GINA Work Phone: [facility] Start: 02-15-2022 End: 02-15-2022 Emergency department patient visit DR MARJAN MATOS [facility] Start: 02-13-2022 End: 02-17-2022 Office outpatient visit 40 minutes Gunjan Jimenez GINA Work Phone: [facility] Start: 02-13-2022 Review Tanja Mahajanjuan david Work Phone: [facility] Start: 10-10-2021 End: 10-10-2021 Office outpatient visit 15 minutes Tanja Zamanestelita Work Phone: [facility] Start: 07-29-2020 End: 07-29-2020 Annotation/Addendum Tanja Bell [facility] Start: 07-26-2020 End: 07-26-2020 Office outpatient visit 15 minutes Tanja Bell [facility] Start: 03-19-2020 End: 03-19-2020 Annotation/Addendum Tanja Bell [facility] Start: 02-28-2020 End: 02-28-2020 Annotation/Addendum Tanja Bell [facility] Start: 04-17-2019 End: 04-17-2019 Office outpatient visit 15 minutes Tanja Bell [facility] Start: 04-17-2019 Review Tanja Cedillo [facility] Start: 02-10-2019 End: 02-10-2019 Office outpatient visit 15 minutes Tanja Bell [facility] Start: 01-11-2019 End: 01-11-2019 Annotation/Addendum Tanja Bell [facility] Start: 12-05-2018 Review Tanja Cedillo [facility] Start: 06-29-2018 End: 06-29-2018 Annotation/Addendum Tanja Bell [facility] Start: 03-09-2018 End: 03-09-2018 Annotation/Addendum Tanja Bell [facility] Start: 02-23-2018 End: 02-23-2018 Office outpatient visit 25 minutes Tanja Bell [facility] Internal [facility] Procedures Date Procedure Procedure Detail Performing Clinician Start: 2025 Estimated creatinine clearance Gunjan Jimenez COMMUNITY HEALTH NURSE-C Work Phone: Start: 04-23-2025 Laparoscopic appendectomy Gunjan Jimenez COMMUNITY HEALTH NURSE-C Work Phone: Start: 04-23-2025 Urnls dip stick/tablet reagent auto microscopy Gunjan Jimenez COMMUNITY HEALTH NURSE-C Work Phone: Start: 04-23-2025 Ct abdomen & pelvis w/contrast material Gunjan Jimenez COMMUNITY HEALTH NURSE-C Work Phone: Start: 04-23-2025 Us scrotum & contents Gunjan Jimenez COMMUNITY HEALTH NURSE-C Work Phone: Start: 03-21-2025 Plain chest X-ray Gunjan Jimenez COMMUNITY HEALTH NURSE-C Work Phone: Start: 03-21-2025 D-dimer assay, quantitative Gunjan Jimenez NP-C Work Phone: Comment on above: NORMAL D-Dimer level (<0.50) indicates n o DVT or PE. Start: 03-24-2023 End: 03-24-2023 Cardiology Visit Report Procedure Note: See Note; NOTES: [facility] [address] [place], [place] [address] OFFICE VISIT Date of Service: 03/24/23 MR#: [id number] Acct: [id number] Name: BOLA OLIVEROS Rep #: [id number] : 1965 Provider: Dr. Conrad Feliz MD Age/Sex: 57/M Location[place] [facility] Status: Signed HPI HPI History of Present Illness Details: The patient [...] Auscultation Intake Visit Reasons: 4 week fu Research Physician Required: No Accompanied by: Is patient in [...] Cosigner Signature: Date (if applicable) CC: RISSA Jimenez [facility] Work Phone: Start: 03-05-2023 End: 03-05-2023 Stress Report Procedure Note: See Note; NOTES: [facility] [address] [place] [address] MR#: [id number] Acct: [id number] Name: BOLA OLIVEROS Rep #: [id number] : 1965 57 From: Conrad Feliz MD Primary Care: RISSA Pablo Status: REG CLI Referring Dr: Conrad Feliz MD Sex: Georgina Gracia Stress Test Report Date: 03/05/2023 Procedure: Pharmacologic [...] of 69%. This note was generated with Azoiation software. It may contain incorrect words, spelling, and punctuation that were not noted in checking the note before signing. 03/05/23 1136 <Electronically signed by Conrad Feliz MD> Date Conrad Feliz MD CC: RISSA Jimenez; Dr. Conrad Feliz MD Date Dictated: 03/05/231132 Date Transcribed: 03/05/231132 Lean Manufacturing Leader: TATA Jimenez MAPPING EDITOR Work Phone: Start: 03-05-2023 Cardiovascular stress test using pharmacologic stress agent COMMUNITY HEALTH NURSE-C Tanja Bell NP Work Phone: Start: 02-16-2023 End: 02-24-2023 12 Lead EKG performed by [facility] Procedure Note: See Note; NOTES: [facility] [address] [place] [address] 12 Lead EKG performed by [facility] 02/16/23 1003 MR#: [id number] Acct: [id number] Name: BOLA OLIVEROS Rep #: [id number] : 1965 57 From: Conrad Feliz MD Attending Dr: Dr. Conrad Feliz MD Status: DEP [facility] Ordering Dr: Conrad Feliz MD Date: 02/16/23 Location[place] [facility] Sex: M C Admitted: [facility]/12 Lead EKG performed by [facility] Sinus Rhythm WITHIN NORMAL LIMITS 02/16/23 1130 <Electronically signed by Conrad Feliz MD> Date Conrad Feliz MD CC: COMMUNITY HEALTH NURSE-C Gunjan Jimenez Date Dictated: 02/16/23 1003 Date Transcribed: 02/16/23 100 Lean Manufacturing Leader: TATA Jimenez CNP Work Phone: Start: 02-16-2023 End: 02-16-2023 Cardiology Visit Report Procedure Note: See Note; NOTES: [facility] [address] [place] [address] OFFICE VISIT Date of Service: 02/16/23 MR#: [id number] Acct: [id number] Name: BOLA OLIVEROS Rep #: [id number] : 1965 Provider: Dr. Conrad Feliz MD Age/Sex: 57/M Location[place] [facility] Status: Signed [facility] History of Present Illness Details: [...] Pulse Source Monitor Intake Visit Reasons: ELDER (TONY) Research Physician Required: No Accompanied by: Is patient in [...] 02/16/23] Ejection fraction %: 65 to 70 [facility] Medical History (Updated 02/16/23 @ 10:27 by [...] jaw lock up, left arm) Duration: continuous (like a tooth ache) Exacerbation: exercise Palpitations: Yes feels like its: [...] MD Cosigner Signature: Date (if applicable) CC: COMMUNITY HEALTH NURSEJadaC Gunjan Jimenez [facility] Work Phone: Start: 01-01-2023 End: 01-01-2023 Echo Complete Procedure Note: See Note; NOTES: [facility] [address] [place] [address]. [place] [address] Echo Complete 01/01/23 1255 MR#: [id number] Acct: [id number] Name: BOLA OLIVEROS Rep #: [id number] : 1965 57 From: Conrad Feliz MD Attending Dr: RISSA Pablo [facility]: Gunjan Jimenez Date: 01/01/23 Location: [facility] Sex: M C Admitted: Reason For Study: [...] sec Doppler Measurements Calculations MV E max kirk: 61.3 cm/sec Lat Peak E' Kirk: 11.0 cm/sec Med Peak E' Kirk: 7.1 cm/sec MV A max kirk: 80.7 cm/sec E/E' lat: 5.6 E/E' med: [...] PA V2 max: 88.5 cm/sec TR max kirk: 232.7 cm/sec LV V1 max P.0 mmHg PA V2 mean: 66.4 cm/sec TR max P.7 mmHg LV V1 mean P.0 mmHg LV V1 mean: 66.3 cm/sec LV V1 VTI: 22.3 cm ECHO/Echo Complete Interpretation Summary Mild concentric left ventricular hypertrophy. The left ventricular ejection fraction is 65 %. The left atrium is mildly enlarged. Ordering Physician: Gunjan Jimenez Referring Physician: Gunjan Jimenez Performed By: Dipti Estrella RCS 01/01/23 1425 Date Conrad Feliz MD CC: Gunjan Jimenez COMMUNITY HEALTH NURSE; COMMUNITY HEALTH NURSE-C Gunjan Jimenez Date Dictated: 01/01/23 1255 Date Transcribed: 01/01/231424 Lean Manufacturing Leader: Signed Gunjan Jimenez [facility] Work Phone: Start: 12-18-2022 CT angiography of chest with contrast COMMUNITY HEALTH NURSE-C Tanja Bell COMMUNITY HEALTH NURSE Work Phone: Start: 12-18-2022 End: 12-20-2022 CTA Chest W/WO Contrast Procedure Note: See Note; NOTES: [facility] Imaging Services [address] [place] [address] CTA Chest W/WO Contrast MR#: [id number] Acct: [id number] Name: BOLA OLIVEROS Rep #: [id number] : 1965 M 57 From: Tony Luz MD PCP: Gunjan Jimenez COMMUNITY HEALTH NURSE-C Status: REG CLI Study: CTA Chest W/WO Contrast Date of Exam: 12/18/22 Exam# [id number] Ordering Dr: Gunjan Jimenez NP- Basil STUDY: CTA CHEST REASON FOR EXAM: Male, [...] MD at 14:44 EDT , CC: Gunjan Jimenez NP; COMMUNITY HEALTH NURSE-C Gunjan Jimenez Lean Manufacturing Leader: Signed Gunjan Jimenez CNP Work Phone: Start: 12-16-2022 Plain chest X-ray COMMUNITY HEALTH NURSE-C Tanja Bell COMMUNITY HEALTH NURSE Work Phone: Start: 12-16-2022 End: 12-16-2022 Chest PA and Lateral Procedure Note: See Note; NOTES: [facility] Radiology [address] [place] [address] Chest PA and Lateral MR#: [id number] Acct: [id number] Name: BOLA OLIVEROS Rep #: [id number] : 1965 M 57 From: Travon mason MD PCP: Tanja Bell NP-Basil Status: DEP AMB Study: Chest PA and Lateral Date of Exam: 12/16/22 Exam# [id number] Ordering Dr: Gunjan Jimenez STUDY: X-RAY CHEST REASON FOR EXAM: Male, [...] MD at 12:51 EDT , CC: Gunjan Jimenez NP; COMMUNITY HEALTH NURSE-C Tanja Bell Lean Manufacturing Leader: Signed Gunjan Jimenez CNP Work Phone: Start: 07-26-2020 End: 07-26-2020 Hand Min 3 Views Comments: See Note; NOTES: [facility] [address] [place] [address] Hand Min 3 Views MR#: [id number] Acct: [id number] Name: BOLA OLIVEROS Rep #: [id number] : 1965 M 55 From: Juan paez MD PCP: Care Physician, No Primary Status: DEP AMB Study: Hand Min 3 Views Date of Exam: 07/26/20 Exam# [id number] Ordering Dr: Tanja Bell NP COMMUNITY HEALTH NURSE-Basil STUDY: X-RAY - RIGHT HAND REASON FOR [...] 20:52 EST , Service support , CC: DULCE-Basil Bell; No Primary Care Physician Lean Manufacturing Leader: Signed Tanja Bell Work Phone: None (qualifier value) DR DINORA MATOS DO Plastic repair procedure Karthik Herzog Comment on above: nose widening Plastic repair procedure Karthik Herzog Comment on above: nose widening Plastic repair procedure Karthik Herzog RAIL CAR REPAIRER Comment on above: nose widening Plastic repair procedure Tammy Slarb RAIL CAR REPAIRER Comment on above: nose widening Plastic repair procedure Magdalena Han MA Comment on above: nose widening Plastic repair procedure Magdalena Han MA Comment on above: nose widening Plastic repair procedure Tammy Slarb RAIL CAR REPAIRER Comment on above: nose widening Plastic Surgery Marcy Valadez ear Comment on above: nose widening Plastic Surgery Tanja Bell Work Phone: Comment on above: nose widening Plastic Surgery Karthik Kimble Comment on above: nose widening Plan of Treatment Date Care Activity Detail Author Start: 2025 Patient discharge [facility] Start: 04-23-2025 Application of intermittent pneumatic compression device [facility] Start: 04-23-2025 Following clinical pathway protocol [facility] Start: 04-23-2025 Ambulation without limitation [facility] Start: 04-23-2025 Following clinical pathway protocol [facility] Start: 04-23-2025 Incentive spirometry [facility] Start: 04-23-2025 Measuring intake and output [facility] Start: 04-23-2025 Taking patient vital signs [facility] Start: 04-23-2025 [facility] Start: 04-23-2025 Admission procedure [facility] Start: 04-23-2025 Hospital admission, emergency, from emergency room, medical nature [facility] Start: 04-23-2025 Patient referral to dietitian [facility] Start: 03-21-2025 [facility] Start: 03-21-2025 [facility] Start: 04-09-2023 Patient discharge [facility] Start: 04-08-2023 Patient referral [facility] Work Phone: Start: 04-08-2023 Following clinical pathway protocol [facility] Start: 04-08-2023 Ambulation without limitation [facility] Start: 04-08-2023 Cardiac monitoring [facility] Start: 04-08-2023 Cardiac rehabilitation - phase 1 [facility] Start: 04-08-2023 Cardiac rehabilitation - phase 2 [facility] Start: 04-08-2023 Notification of physician [facility] Start: 04-08-2023 Oxygen therapy [facility] Start: 04-08-2023 Patient discharge [facility] Start: 04-08-2023 Taking patient vital signs [facility] Start: 04-08-2023 Vascular disease risk assessment [facility] Start: 04-08-2023 Vital signs measurements [facility] Start: 04-08-2023 [facility] Start: 04-08-2023 Admission procedure [facility] Start: 12-16-2022 25 hydroxy includes fractions if performed CALCIFEDIOL (01212) [facility]; [facility] Work Phone: Start: 12-16-2022 Assay of thyroid stimulating hormone tsh TSH (THYROID STIMULATING HORMONE) (88369) [facility]; [facility] Work Phone: Start: 12-16-2022 Assay of troponin quantitative Troponin I (89919) [facility]; [facility] Work Phone: Start: 12-16-2022 Blood count complete auto&auto difrntl wbc CBC, PLATELETS & AUT DIFF (84877) [facility]; [facility] Work Phone: Start: 12-16-2022 Fibrin dgradj products d-dimer quantitative D-Dimer (93861) [facility]; [facility] Work Phone: Start: 12-16-2022 Natriuretic peptide BNTP (14433) [facility]; [facility] Work Phone: Start: 12-16-2022 Procedure Education Eprescribed prescriptions (G8553) [facility]; [facility] Work Phone: Start: 07-24-2022 Hemoglobin glycosylated a1c HGB A1C (18268) [facility]; [facility] Work Phone: Start: 07-24-2022 Procedure Education Eprescribed prescriptions (G8553) [facility]; [facility] Work Phone: Start: 07-24-2022 Provider Instructions for Treatment [facility]; [facility] Work Phone: Start: 07-24-2022 Comprehensive metabolic panel METABOLIC PANEL, COMPREHENSIVE (59127) [facility]; [facility] Work [...] Start: 03-20-2022 Hemoglobin glycosylated a1c HGB A1C (28505) [facility]; [facility] Work Phone: Start: 03-20-2022 Natriuretic peptide BNTP (90283) [facility]; [facility] Work Phone: Start: 03-20-2022 25 hydroxy includes fractions if performed CALCIFEDIOL (33513) [facility]; [facility] Work [...] Phone: Start: 04-17-2019 Throat culture THROAT CULTURE (24815) [facility] Work Phone: Start: 02-10-2019 Procedure Education Eprescribed prescriptions (G8553) [facility] Work Phone: Start: 02-10-2019 Provider Instructions for Treatment Follow up after consult [facility] Work Phone: Start: 02-23-2018 Procedure Education Eprescribed prescriptions (G8553) [facility] Work Phone: Start: 02-23-2018 Provider Instructions for Treatment Follow up in 3 months [facility] Work Phone: Patient Education ED Chest Pain, Uncertain Cause ED Chest Wall Pain, Costochondritis [facility] Work Phone: Patient referral [facility] Work Phone: Sleep apnea : Fo llow [...] Date Payer Category Payer Private Health Insurance [id number] 2024 Self-pay [id number] 2023 Private Health Insurance [facility] [id number] 2021 Private Health Insurance [id number] 1965 Unknown [id number] 1965 Unknown [id number] 1965 Unknown [id number] 1965 Unknown [id number] 1965 Unknown [id number] Unknown [employer] Unknown [facility] [id number] Unknown [id number] Unknown [id number] Unknown [id number] Unknown [id number] Unknown [id number] Unknown [id number] Unknown [id number] Unknown [id number] Unknown [id number] Unknown [id number] Social History Date Type Detail Facility Alcohol use: Occasional alcoh ol use. [facility] Work Phone: Caffeine use [facility] Work Phone: Comment on above: none Drug Use: No drug use. [facility] Work Phone: Alcohol use: Alcohol use: [facility]; [facility] Work Phone: Drug Use: Drug Use: [facility]; [facility] Work Phone: Start: 03-22-2020 Tobacco smoking status Heavy tobacco smoker (finding) [facility] Comment on above: pt sts 1.5-2 packs p er day Sex Assigned At [facility] Alcohol use: [facility]; [facility] Work Phone: Comment on above: was a case per day. down to 8-10 per day as of December 2022 Start: 02-17-2018 End: 05-24-2023 Tobacco smoking status [facility] Unknown if ever smoked [facility] Start: 1965 Sex Assigned At Male [facility] Start: 10-31-2014 Sex Male (finding) [facility] Start: 03-21-2025 End: 04-23-2025 Tobacco smoking status [place] Smokes tobacco daily (finding) [facility] Sex Male [facility] Medical Equipment Procedure Code Equipment Code Equipment Origin al Text Equipment Identifier Dates Appendectomy, laparoscopic Surgical staple loading unit, non-cutting ()[id number] FDA Start: 04-23-2025 Drug-eluting coronary artery stent, non-bioabsorbable- polymer-coated ()[id number] FDA Start: 04-08-2023 Drug-eluting coronary artery stent, non-bioabsorbable- polymer-coated ()[id number] FDA Start: 02-02-2024 Drug-eluting coronary artery stent, non-bioabsorbable- polymer-coated ()[id number] FDA Start: 02-02-2024 Drug-eluting coronary artery stent, non-bioabsorbable- polymer-coated [id number] FDA Start: 02-02-2024 Goals Date Patient Goal Desired Activity /State Functional Status Date Assessment Result Facility [address] [facility] Work Phone: 08-23-2024 Functional Status Independent [facility] 08-23-2024 Functional Status ID band on, Call device within reach, Bed in low position, Wheels locked, Upper/Half-Length side-rails up, Visitor at bedside, Safety level maintained [facility] 04-09-2023 Functional status Activity Ability Indepe ndent [facility] Work Phone: 04-08-2023 [address] ad petty [facility] Work Phone: 01-24-2023 Functional Status Independent [facility] 01-24-2023 Functional Status Activity Status ADL [facility] 08-09-2022 Functional Status ID band on, Call device within reach, Bed in low position, Wheels locked, Upper/Half-Length side-rails up, Phone within reach, personal items within reach, Assistive devices within reach, Toileting device within reach, Bedside Cart Locked, Visitor at bedside, Safety level maintained [facility] 02-15-2022 Functional Status Standard Safet y ID band on, Call device within reach, Bed in low position, Wheels locked, Upper/Half-Length side-rails up, Bedside Cart Locked, Safety level maintained [facility] 02-15-2022 Functional Status [facility] Mental Status Date Assessment Result Facility 2025 Cognitive function Voice/Name [facility] Work Phone: 03-21-2025 Cognitive function Voice/Name [facility] Work Phone: 08-23-2024 Mental Status Orientation Oriented x 4 [facility] 08-23-2024 Mental Status [facility] 11-24-2023 Mental Status Orientation Oriented x 4 [facility] 04-08-2023 Cognitive function Voice/Name [facility] Work Phone: 01-24-2023 Mental Status Orientation Oriented x 4 [facility] 08-09-2022 Mental Status Oriented x 4 [facility] 02-15-2022 Mental Status Oriented x 4 [facility] Clinical Notes 02-15-2022 to 2025 Note Date & Type Note Facility 2025 Consult note [facility] 2025 Discharge summary Note Date/Time 2025 7:21am [facility] Medical Records Department [address] [place] [address] Discharge Summary 04/24/25 0717 MR#: [id number] Acct: [id number] Name: BOLA OLIVEROS Rep #:[id number] : 1965 60 From: Ace parekh MD PCP: Dr. Shaniqua Harrington DO Status:AD [facility] Location: [facility] GD185-6 Providers Date of Admission: 04/23/25 Primary Care Physician: Dr. Shaniqua Harrington DO Reason For Visit: APPENDECTOMY Diagnosis Discharge Diagnosis (1) Acute appendicitis: Status: Acute Code(s): K35.80 - Unspecified acute appendicitis Qualifiers: Acute appendicitis type: unspecified acute appendicitis type Qualified Code(s): K35.80 - Unspecified acute appendicitis Plan: Patient is doing well following laparoscopic appendectomy. Once he tolerates a diet today and gets weaned from his oxygen I will discharge him home Medications at Discharge Home Medications trazodone 50 mg tablet 150 mg PO QHS PRN insomnia 02/08/23 aspirin 81 mg tablet,delayed release 81 mg PO DAILY heart health 02/16/23 losartan 50 mg tablet 50 mg PO DAILY blood pressure 03/24/23 nitroglycerin 0.4 mg sublingual tablet 0.4 mg sublingual Q5M PRN Cardiac/Chest Pain #15 tabs 04/08/23 clopidogrel 75 mg tablet 75 mg PO DAILY antiplatelet #90 tabs 05/22/24 ranolazine 500 mg tablet,extended release,12 hr 500 mg PO BID HEART #60 tabs 11/10/24 metoprolol tartrate 50 mg tablet 50 mg PO BID heart #180 tabs 02/26/25 atorvastatin 10 mg tablet 10 mg PO QHS cholesterol #90 tabs 04/03/25 magnesium 250 mg tablet 250 mg PO DAILY SUPPLEMENT 04/23/25 multivitamin (Daily Multi-Vitamin tablet) 1 tab PO DAILY SUPPLEMENT 04/23/25 sertraline 50 mg tablet 50 mg PO DAILY MOOD 04/23/25 acetaminophen 325 mg tablet 650 mg (2 x 325 mg) PO Q4H PRN PRN Pain 1-10 Or Fever #0 tabs 04/24/25 oxycodone 5 mg tablet 5 - 10 mg (1 - 2 x 5 mg) PO Q4H PRN PRN Pain Score 4-10 5 days #14 tabs 04/24/25 Hospital Course Operations appendectomy Summary of Care Provided Hospital Course: Patient presented with right lower quadrant pain and was diagnosed with acute appendicitis on CT scan. He was immediately taken for surgery and had laparoscopic appendectomy. Following surgery he was tolerate diet and would really like to go home and I discharged him home this morning after tolerating adiet Weight / BMI Weight Weight: 308 lb Body Mass Index (BMI) 41.8 ABG / Lab / Microbiology Data 04/24/25 05:37 04/24/25 05:37 Laboratory: Laboratory Results - last 24 hr 04/23/25 10:00: WBC 11.2 H, RBC 4.46 L, Hgb 14.0, Hct 40.7, MCV 91.3, MCH 31.4, MCHC 34.4, RDW Std Deviation 41.7, RDW Coeff of Megan 12.6, Plt Count 157, MPV 10.7, Immature Gran % (Auto) 0.500, Neut % (Auto) 76.9 H, Lymph % (Auto) 10.4 L,[place] % (Auto) 10.4 H, Eos % (Auto) 1.6, Baso % (Auto) 0.2, Absolute Neuts (auto)8.6 H, Absolute Lymphs (auto) 1.17, Nucleated RBC % 0, Sodium 136, Potassium 4.2, Chloride 102, Carbon Dioxide 24.1, Anion Gap 10, BUN 7, Creatinine 0.82, Estim Creat Clear Calc 139.23, Est GFR (MDRD) Non-Af 101, BUN/Creatinine Ratio 8.7 L, Glucose 143 H, Calcium 9.1, Total Bilirubin 0.98, AST 20, ALT 25, Alkaline Phosphatase 52, Total Protein 7.0, Albumin 4.0, Globulin 3.0, Albumin/Globulin Ratio 1.3, Lipase 25 04/23/25 11:26: Urine Color Yellow, Urine Clarity Clear, Urine pH 7.0, Ur Specific [place] 1.005, Urine Protein 15 H, Urine Glucose (UA) Normal, Urine Ketones Negative, Urine Occult Blood Negative, Urine Nitrite Negative, Urine Bilirubin Negative, Urine Urobilinogen Normal, Ur Leukocyte Esterase Negative, Urine RBC 0-5 SEEN, Urine WBC 0-5 SEEN, Ur Squamous Epith Cells 0 SEEN, Urine Bacteria 0 SEEN, Urine Mucus RARE 04/24/25 05:37: WBC 11.8 H, RBC 4.08 L, Hgb 12.5 L, Hct 38.9 L, MCV 95.3 H, MCH 30.6, MCHC 32.1 D, RDW Std Deviation 45.3 H, RDW Coeff of Megan 12.9, Plt Count 142 L, MPV 11.0, Immature Gran % (Auto) 0.800, Neut % (Auto) 79.4 H, Lymph % (Auto) 9.3 L, [place] % (Auto) 10.1 H, Eos % (Auto) 0.2, Baso % (Auto) 0.2, Absolute Neuts (auto) 9.4 H, Absolute Lymphs (auto) 1.10, Nucleated RBC % 0, Sodium 136, Potassium 4.4, Chloride 103, Carbon Dioxide 23.3, Anion Gap 9, BUN 10, Creatinine 0.89, Estim Creat Clear Calc 127.89, Est GFR (MDRD) Non-Af 98, BUN/Creatinine Ratio 10.9, Glucose 114 H, Calcium 8.5 Radiography Diagnostic Testing: Radiology Impression Abdomen/Pelvis CT 04/23/25 09:57 IMPRESSION: 1. Mild fatty liver. 2. Acute, uncomplicated appendicitis. Significant amount of inflammatory changes shown in the periappendiceal fat. 3. Diverticulosis without diverticulitis. 4. Small fat containing right inguinal hernia. Reading Location: [id number] Testicular Ultrasound 04/23/25 09:57 IMPRESSION: No evidence of testicular torsion. Small bilateral epididymal cysts. Small bilateral hydroceles. Reading Location: [facility] D/C Instructions Discharge Activity: May Not Drive (for 2-3 days or while taking narcotic pain medications) May shower in (days): 1 Lifting Restrictions: 15 lbs for 2 weeks Additional Activity Instructions: Alternate ibuprofen and Tylenol for pain control, oxycodone for breakthrough pain Call your doctor if your incision/area has: Continuous Slow Oozing, Sudden Increased Bleeding, Increased Pain/ Swelling, Increased Redness and Foul Smelling Discharge Call your doctor if you observe: Fever of 101 or Higher Suture Line Care: Avoid Pulling/Pushing and Avoid Pinching/Bending Remove Dressing in: 2 days Cleanse incision/area with: Soap & Water DC O2, CPAP, BIPAP Needs Home O2 Discharge instructions: No Additional Instructions: Keep dressing clean and dry. Change or remove dressing in 2 days. Leave steri strips for 1 week. May protect with a gauze bandaid. Please Follow Up With: Ace Renteria MD When: Please call to schedule 2 week follow up appointment at [phone] Meaningful Use Info Meaningful Use Meaningful Use Diagnoses (Choose all that apply): None applicable Discharge Plan Admission Admit Date/Time: 04/23/25 13:55 Attending Provider: Ace Renteria Primary Care Provider: Sahniqua Harrington Discharge Orders/Prescriptions Prescriptions: New acetaminophen 325 mg Tablet 650 mg PO Q4H PRN PRN (Reason: Pain 1-10 Or Fever) Qty: 0 0RF oxycodone 5 mg Tablet 5 - 10 mg PO Q4H PRN PRN (Reason: Pain Score 4-10) 5 Days Qty: 14 0RF Continued trazodone 50 mg tablet 150 mg PO QHS PRN (Reason: insomnia) Patient Comments: take 3 tablet by mouth at bedtime if needed for sleep / insomnia aspirin 81 mg tablet,delayed release (DR/EC) 81 mg PO DAILY losartan 50 mg tablet 50 mg PO DAILY ranolazine 500 mg tablet extended release 12 hr 500 mg PO BID Qty: 60 11RF Patient Comments: PT STATES TAKES 1 TAB QAM nitroglycerin 0.4 mg Tablet, Sublingual 0.4 mg sublingual Q5M PRN (Reason: Cardiac/Chest Pain) Qty: 15 3RF sertraline 50 mg tablet 50 mg PO DAILY multivitamin [Daily Multi-Vitamin] Tablet 1 tab PO DAILY magnesium 250 mg tablet 250 mg PO DAILY clopidogrel 75 mg tablet 75 mg PO DAILY Qty: 90 3RF metoprolol tartrate 50 mg tablet 50 mg PO BID Qty: 180 2RF atorvastatin 10 mg tablet 10 mg PO QHS Qty: 90 3RF Referrals / Follow Up: Gunjan Jimenez NP-C [Med Staff - [facility] Practice Prof, Internal Medicine] Disposition Disposition (needs filled in before D/C Order can be placed): Home, Self Care 04/24/25 0721 <Electronically signed by Ace Renteria MD> Cosigner Signature (if applicable): CC: Dr. Ace Renteria MD; Dr. Shaniqua Harrington, DO~ Signed [facility] Work Phone: 1(845) 845-213010-14-2025 Progress note Author Ace Renteria [facility] Note Date/Time 2025 7 :17am [facility] Medical Records Department [address] [place] [address] Progress Note - Surgery 2516 MR#: [id number] Acct: [id number] Name: BOLA OLIVEROS Rep #:[id number] : 1965 60 From: Ace parekh MD PCP: Dr. Shaniqua Harrington, DO Status:AD M [facility] Location: PR3 [id number] Subjective Subjective Patient reports he is doing well. He reports his abdominal pain is much improved since yesterday. He denies nausea or vomiting. Objective Data Objective Data Vital Signs: Vital Signs Temp Pulse Resp BP Pulse Ox O2 Del Method O2 Flow Rate 98 F 89 18 114/68 96 Nasal Cannula 3 04/24/25 03:45 04/24/25 03:45 04/24/25 03:45 04/24/25 03:45 04/24/25 03:45 04/24/25 03:45 04/24/25 03:45 Oxygen Flow Rate (L/min) 3 Oxygen Delivery Method Nasal Cannula Weight: 308 lb Body Mass Index (BMI) 41.8 Intake & Output: Intake and Output for Last 24 Hours 04/22/25 04/23/25 04/24/25 23:59 23:59 23:59 Intake Total 2093 / 2093 1050 / 1050 Output Total 250 / 250 Balance 2088 / 2088 800 / 800 Lab / Micro Data 04/24/25 05:37 04/24/25 05:37 Labs: Laboratory Results - last 24 hr 04/23/25 10:00: WBC 11.2 H, RBC 4.46 L, Hgb 14.0, Hct 40.7, MCV 91.3, MCH 31.4, MCHC 34.4, RDW Std Deviation 41.7, RDW Coeff of Megan 12.6, Plt Count 157, MPV 10.7, Immature Gran % (Auto) 0.500, Neut % (Auto) 76.9 H, Lymph % (Auto) 10.4 L,[place] % (Auto) 10.4 H, Eos % (Auto) 1.6, Baso % (Auto) 0.2, Absolute Neuts (auto)8.6 H, Absolute Lymphs (auto) 1.17, Nucleated RBC % 0, Sodium 136, Potassium 4.2, Chloride 102, Carbon Dioxide 24.1, Anion Gap 10, BUN 7, Creatinine 0.82, Estim Creat Clear Calc 139.23, Est GFR (MDRD) Non-Af 101, BUN/Creatinine Ratio 8.7 L, Glucose 143 H, Calcium 9.1, Total Bilirubin 0.98, AST 20, ALT 25, Alkaline Phosphatase 52, Total Protein 7.0, Albumin 4.0, Globulin 3.0, Albumin/Globulin Ratio 1.3, Lipase 25 04/23/25 11:26: Urine Color Yellow, Urine Clarity Clear, Urine pH 7.0, Ur Specific [place] 1.005, Urine Protein 15 H, Urine Glucose (UA) Normal, Urine Ketones Negative, Urine Occult Blood Negative, Urine Nitrite Negative, Urine Bilirubin Negative, Urine Urobilinogen Normal, Ur Leukocyte Esterase Negative, Urine RBC 0-5 SEEN, Urine WBC 0-5 SEEN, Ur Squamous Epith Cells 0 SEEN, Urine Bacteria 0 SEEN, Urine Mucus RARE 04/24/25 05:37: WBC 11.8 H, RBC 4.08 L, Hgb 12.5 L, Hct 38.9 L, MCV 95.3 H, MCH 30.6, MCHC 32.1 D, RDW Std Deviation 45.3 H, RDW Coeff of Megan 12.9, Plt Count 142 L, MPV 11.0, Immature Gran % (Auto) 0.800, Neut % (Auto) 79.4 H, Lymph % (Auto) 9.3 L, [place] % (Auto) 10.1 H, Eos % (Auto) 0.2, Baso % (Auto) 0.2, Absolute Neuts (auto) 9.4 H, Absolute Lymphs (auto) 1.10, Nucleated RBC % 0, Sodium 136, Potassium 4.4, Chloride 103, Carbon Dioxide 23.3, Anion Gap 9, BUN 10, Creatinine 0.89, Estim Creat Clear Calc 127.89, Est GFR (MDRD) Non-Af 98, BUN/Creatinine Ratio 10.9, Glucose 114 H, Calcium 8.5 Radiography Diagnostic Testing: Radiology Impression Abdomen/Pelvis CT 04/23/25 09:57 IMPRESSION: 1. Mild fatty liver. 2. Acute, uncomplicated appendicitis. Significant amount of inflammatory changes shown in the periappendiceal fat. 3. Diverticulosis without diverticulitis. 4. Small fat containing right inguinal hernia. Reading Location: [facility] Testicular Ultrasound 04/23/25 09:57 IMPRESSION: No evidence of testicular torsion. Small bilateral epididymal cysts. Small bilateral hydroceles. Reading Location: [facility] Physical Exam Const oriented x3 and no apparent distress Resp normal respiratory effort GI soft to palpation and non-tender Assessment & Plan Assessment/Plan (1) Acute appendicitis: QUALIFIERS: Acute appendicitis type: unspecified acute appendicitis type Qualified Code(s): K35.80 - Unspecified acute appendicitis PLAN: Patient is doing well following laparoscopic appendectomy. Once he tolerates a diet today and gets weaned from his oxygen I will discharge him home 04/24/25 0717 <Electronically signed by Ace Renteria MD> Cosigner Signature (if applicable): CC: ~ Signed [facility] Work Phone: 1(442) 557-878210-14-2025 Discharge summary [facility] Medical Records Department [address] [place] [address] Discharge Summary 04/24/25 0717 MR#: [id number] Acct: [id number] Name: BOLA OLIVEROS Rep #:[id number] : 1965 60 From: Ace parekh MD PCP: Dr. Shaniqua Harrington, DO Status:AD M SYBIL Location: [facility] GB053-8 Providers Date of Admission: 04/23/25 Primary Care Physician: Dr. Shaniqua Harrington DO Reason For Visit: APPENDECTOMY Diagnosis Discharge Diagnosis (1) Acute appendicitis: Status: Acute Code(s): K35.80 - Unspecified acute appendicitis Qualifiers: Acute appendicitis type: unspecified acute appendicitis type Qualified Code(s): K35.80 - Unspecified acute appendicitis Plan: Patient is doing well following laparoscopic appendectomy. Once he tolerates a diet today and gets weaned from his oxygen I will discharge him home Medications at Discharge Home Medications trazodone 50 mg tablet 150 mg PO QHS PRN insomnia 02/08/23 aspirin 81 mg tablet,delayed release 81 mg PO DAILY heart health 02/16/23 losartan 50 mg tablet 50 mg PO DAILY blood pressure 03/24/23 nitroglycerin 0.4 mg sublingual tablet 0.4 mg sublingual Q5M PRN Cardiac/Chest Pain #15 tabs 04/08/23 clopidogrel 75 mg tablet 75 mg PO DAILY antiplatelet #90 tabs 05/22/24 ranolazine 500 mg tablet,extended release,12 hr 500 mg PO BID HEART #60 tabs 11/10/24 metoprolol tartrate 50 mg tablet 50 mg PO BID heart #180 tabs 02/26/25 atorvastatin 10 mg tablet 10 mg PO QHS cholesterol #90 tabs 04/03/25 magnesium 250 mg tablet 250 mg PO DAILY SUPPLEMENT 04/23/25 multivitamin (Daily Multi-Vitamin tablet) 1 tab PO DAILY SUPPLEMENT 04/23/25 sertraline 50 mg tablet 50 mg PO DAILY MOOD 04/23/25 acetaminophen 325 mg tablet 650 mg (2 x 325 mg) PO Q4H PRN PRN Pain 1-10 Or Fever #0 tabs 04/24/25 oxycodone 5 mg tablet 5 - 10 mg (1 - 2 x 5 mg) PO Q4H PRN PRN Pain Score 4-10 5 days #14 tabs 04/24/25 Hospital Course Operations appendectomy Summary of Care Provided Hospital Course: Patient presented with right lower quadrant pain and was diagnosed with acute appendicitis on CT scan. He was immediately taken for surgery and had laparoscopic appendectomy. Following surgery he wastolerate diet and would really like to go home and I discharged him home this morning after tolerating adiet Weight / BMI Weight Weight: 308 lb Body Mass Index (BMI) 41.8 ABG / Lab / Microbiology Data 04/24/25 05:37 04/24/25 05:37 Laboratory: Laboratory Results - last 24 hr 04/23/25 10:00: WBC 11.2 H, RBC 4.46 L, Hgb 14.0, Hct 40.7, MCV 91.3, MCH 31.4, MCHC 34.4, RDW Std Deviation 41.7, RDW Coeff of Megan 12.6, Plt Count 157, MPV 10.7, Immature Gran % (Auto) 0.500, Neut %(Auto) 76.9 H, Lymph % (Auto) 10.4 L,[place] % (Auto) 10.4 H, Eos % (Auto) 1.6, Baso % (Auto) 0.2, Absolute Neuts (auto)8.6 H, Absolute Lymphs (auto) 1.17, Nucleated RBC % 0, Sodium 136, Potassium 4.2, Chloride 102, Carbon Dioxide 24.1, Anion Gap 10, BUN 7, Creatinine 0.82, Estim Creat Clear Calc 139.23, Est GFR (MDRD) Non-Af 101, BUN/Creatinine Ratio 8.7 L, Glucose 143 H, Calcium 9.1, Total Bilirubin 0.98, AST 20, ALT 25, Alkaline Phosphatase 52, Total Protein 7.0, Albumin 4.0, Globulin 3.0, Albumin/Globulin Ratio 1.3, Lipase 25 04/23/25 11:26: Urine Color Yellow, Urine Clarity Clear, Urine pH 7.0, Ur Specific [place] 1.005, Urine Protein 15 H, Urine Glucose (UA) Normal, Urine Ketones Negative, Urine Occult Blood Negative, Urine Nitrite Negative, Urine Bilirubin Negative, Urine Urobilinogen Normal, Ur Leukocyte Esterase Negative, Urine RBC 0-5 SEEN, Urine WBC 0-5 SEEN, Ur Squamous Epith Cells 0 SEEN, Urine Bacteria 0 SEEN, Urine Mucus RARE 04/24/25 05:37: WBC 11.8 H, RBC 4.08 L, Hgb 12.5 L, Hct 38.9 L, MCV 95.3 H, MCH 30.6, MCHC 32.1 D, RDW Std Deviation 45.3 H, RDW Coeff of Megan 12.9, Plt Count 142 L, MPV 11.0, Immature Gran % (Auto) 0.800, Neut % (Auto) 79.4 H, Lymph % (Auto) 9.3 L, [place] % (Auto) 10.1 H, Eos % (Auto) 0.2, Baso % (Auto) 0.2, Absolute Neuts (auto) 9.4 H, Absolute Lymphs (auto) 1.10, Nucleated RBC % 0, Sodium 136, Potassium 4.4, Chloride 103, Carbon Dioxide 23.3, Anion Gap 9, BUN 10, Creatinine 0.89, Estim Creat Clear Calc 127.89, Est GFR (MDRD) Non-Af 98, BUN/Creatinine Ratio 10.9, Glucose 114 H, Calcium 8.5 Radiography Diagnostic Testing: Radiology Impression Abdomen/Pelvis CT 04/23/25 09:57 IMPRESSION: 1. Mild fatty liver. 2. Acute, uncomplicated appendicitis. Significant amount of inflammatory changes shown in the periappendiceal fat. 3. Diverticulosis without diverticulitis. 4. Small fat containing right inguinal hernia. Reading Location: [id number] Testicular Ultrasound 04/23/25 09:57 IMPRESSION: No evidence of testicular torsion. Small bilateral epididymal cysts. Small bilateral hydroceles. Reading Location: [facility] D/C Instructions Discharge Activity: May Not Drive (for 2-3 days or while taking narcotic pain medications) May shower in (days): 1 Lifting Restrictions: 15 lbs for 2 weeks Additional Activity Instructions: Alternate ibuprofen and Tylenol for pain control, oxycodone for breakthrough pain Call your doctor if your incision/area has: Continuous Slow Oozing, Sudden Increased Bleeding, Increased Pain/ Swelling, Increased Redness and Foul Smelling Discharge Call your doctor if you observe: Fever of 101 or Higher Suture Line Care: Avoid Pulling/Pushing and Avoid Pinching/Bending Remove Dressing in: 2 days Cleanse incision/area with: Soap & Water DC O2, CPAP, BIPAP Needs Home O2 Discharge instructions: No Additional Instructions: Keep dressing clean and dry. Change or remove dressing in 2 days. Leave steri strips for 1 week. May protect with a gauze bandaid. Please Follow Up With: Ace Renteria MD When: Please call to schedule 2 week follow up appointment at [phone] Meaningful Use Info Meaningful Use Meaningful Use Diagnoses (Choose all that apply): None applicable Discharge Plan Admission Admit Date/Time: 04/23/25 13:55 Attending Provider: Ace Renteria Primary Care Provider: Shaniqua Harrington Discharge Orders/Prescriptions Prescriptions: New acetaminophen 325 mg Tablet 650 mg PO Q4H PRN PRN (Reason: Pain 1-10 Or Fever) Qty: 0 0RF oxycodone 5 mg Tablet 5 - 10 mg PO Q4H PRN PRN (Reason: Pain Score 4-10) 5 Days Qty: 14 0RF Continued trazodone 50 mg tablet 150 mg PO QHS PRN (Reason: insomnia) Patient Comments: take 3 tablet by mouth at bedtime if needed for sleep / insomnia aspirin 81 mg tablet,delayed release (DR/EC) 81 mg PO DAILY losartan 50 mg tablet 50 mg PO DAILY ranolazine 500 mg tablet extended release 12 hr 500 mg PO BID Qty: 60 11RF Patient Comments: PT STATES TAKES 1 TAB QAM nitroglycerin 0.4 mg Tablet, Sublingual 0.4 mg sublingual Q5M PRN (Reason: Cardiac/Chest Pain) Qty: 15 3RF sertraline 50 mg tablet 50 mg PO DAILY multivitamin [Daily Multi-Vitamin] Tablet 1 tab PO DAILY magnesium 250 mg tablet 250 mg PO DAILY clopidogrel 75 mg tablet 75 mg PO DAILY Qty: 90 3RF metoprolol tartrate 50 mg tablet 50 mg PO BID Qty: 180 2RF atorvastatin 10 mg tablet 10 mg PO QHS Qty: 90 3RF Referrals / Follow Up: Gunjan Jimenez NP-C [Med Staff - [facility] Practice Prof, Internal Medicine] Disposition Disposition (needs filled in before D/C Order can be placed): Home, Self Care 04/24/25720 Cosigner Signature (if applicable): CC: Dr. Ace eRnteria MD; Dr. Shaniqua Harrington DO~ Signed [facility]10-14-2025 [facility] Medical Records Department [address] [place] [address] Discharge Summary 04/24/25716 MR#: [id number] Acct: [id number] Name: BOLA OLIVEROS Rep #: [id number] : 1965 60 From: Ace Renteria MD PCP: Dr. Shaniqua Harrington DO Status:ADM SYBIL Location: [address] Providers Date of Admission: 04/23/25 Primary Care Physician: Dr. Shaniqua Harrington DO Reason For Visit: APPENDECTOMY Diagnosis Discharge Diagnosis (1) Acute appendicitis: Status: Acute Code(s): K35.80 - Unspecified acute appendicitis Qualifiers: Acute appendicitis type: unspecified acute appendicitis type Qualified Code(s): K35.80 - Unspecified acute appendicitis Plan: Patient is doing well following laparoscopic appendectomy. Once he tolerates a diet today and gets weaned from his oxygen I will discharge him home Medications at Discharge Home Medications trazodone 50 mg tablet 150 mg PO QHS PRN insomnia 02/08/23 aspirin 81 mg tablet,delayed release 81 mg PO DAILY heart health 02/16/23 losartan 50 mg tablet 50 mg PO DAILY blood pressure 03/24/23 nitroglycerin 0.4 mg sublingual tablet 0.4 mg sublingual Q5M PRN Cardiac/Chest Pain #15 tabs 04/08/23 clopidogrel 75 mg tablet 75 mg PO DAILY antiplatelet #90 tabs 05/22/24 ranolazine 500 mg tablet,extended release,12 hr 500 mg PO BID HEART #60 tabs 11/10/24 metoprolol tartrate 50 mg tablet 50 mg PO BID heart #180 tabs 02/26/25 atorvastatin 10 mg tablet 10 mg PO QHS cholesterol #90 tabs 04/03/25 magnesium 250 mg tablet 250 mg PO DAILY SUPPLEMENT 04/23/25 multivitamin (Daily Multi-Vitamin tablet) 1 tab PO DAILY SUPPLEMENT 04/23/25 sertraline 50 mg tablet 50 mg PO DAILY MOOD 04/23/25 acetaminophen 325 mg tablet 650 mg (2 x 325 mg) PO Q4H PRN PRN Pain 1-10 Or Fever #0 tabs 04/24/25 oxycodone 5 mg tablet 5 - 10 mg (1 - 2 x 5 mg) PO Q4H PRN PRN Pain Score 4-10 5 days #14 tabs 04/24/25 Hospital Course Operations appendectomy Summary of Care Provided Hospital Course: Patient presented with right lower quadrant pain and was diagnosed with acute appendicitis on CT scan. He was immediately taken for surgery and had laparoscopic appendectomy. Following surgery he was tolerate diet and would really like to go home and I discharged him home this morning after tolerating a diet Weight / BMI Weight Weight: 308 lb Body Mass Index (BMI) 41.8 ABG / Lab / Microbiology Data 04/24/25 05:37 04/24/25 05:37 Laboratory: Laboratory Results - last 24 hr 04/23/25 10:00: WBC 11.2 H, RBC 4.46 L, Hgb 14.0, Hct 40.7, MCV 91.3, MCH 31.4, MCHC 34.4, RDW Std Deviation 41.7, RDW Coeff of Megan 12.6, Plt Count 157, MPV 10.7, Immature Gran % (Auto) 0.500, Neut % (Auto) 76.9 H, Lymph % (Auto) 10.4 L, [place] % (Auto) 10.4 H, Eos % (Auto) 1.6, Baso % (Auto) 0.2, A bsolute Neuts (auto) 8.6 H, Absolute Lymphs (auto) 1.17, Nucleated RBC % 0, Sodium 136, Potassium 4.2, Chloride 102, Carbon Dioxide 24.1, Anion Gap 10, BUN 7, Creatinine 0.82, Estim Creat Clear Calc 139.23, Est GFR (MDRD) Non-Af 101, BUN/Creatinine Ratio 8.7 L, Glucose 143 H, Calcium 9.1, Total Bilirubin 0.98, AST 20, ALT 25, Alkaline Phosphatase 52, Total Protein 7.0, Albumin 4.0, Globulin 3.0, Albumin/Globulin Ratio 1.3, Lipase 25 04/23/25 11:26: Urine Color Yellow, Urine Clarity Clear, Urine pH 7.0, Ur Specific [place] 1.005, U rine Protein 15 H, Urine Glucose (UA) Normal, Urine Ketones Negative, Urine Occult Blood Negative, Urine Nitrite Negative, Urine Bilirubin Negative, Urine Urobilinogen Normal, Ur Leukocyte Esterase Negative, Urine RBC 0-5 SEEN, Urine WBC 0-5 SEEN, Ur Squamous Epith Cells 0 SEEN, Urine Bacteria 0 SEEN, Urine Mucus RARE 04/24/25 05:37: WBC 11.8 H, RBC 4.08 L, Hgb 12.5 L, Hct 38.9 L, MCV 95.3 H, MCH 30.6, MCHC 32.1 D, RDW Std Deviation 45.3 H, RDW Coeff of Megan 12.9, Plt Count 142 L, MPV 11.0, Immature Gran % (Auto) 0.800, Neut % (Auto) 79.4 H, Lymph % (Auto) 9.3 L, [place] % (Auto) 10.1 H, Eos % (Auto) 0.2, Baso % (Auto) 0.2, Absolute Neuts (auto) 9.4 H, Absolute Lymphs (auto) 1.10, Nucleated RBC % 0, Sodium 136, Potassium 4.4, Chloride 103, Carbon Dioxide 23.3, Anion Gap 9, BUN 10, Creatinine 0.89, Estim Creat Clear Calc 127.89, Est GFR (MDRD) Non-Af 98, BUN/Creatinine Ratio 10.9, Glucose 114 H, Calcium 8.5 Radiography Diagnostic Testing: Radiology Impression Abdomen/Pelvis CT 04/23/25 09:57 IMPRESSION: 1. Mild fatty liver. 2. Acute, uncomplicated appendicitis. Significant amount of inflammatory changes shown in the periappendiceal fat. 3. Diverticulosis without diverticulitis. 4. Small fat containing right inguinal hernia. Reading Location: [id number] Testicular Ultrasound 04/23/25 09:57 IMPRESSION: No evidence of testicular torsion. Small bilateral epididymal cysts. Small bilater (more content not included)...[facility]10-14-2025 Progress note [facility] Medical Records Department [address] [place] [address] Progress Note - Surgery 04/24/25 0716 MR#: [id number] Acct: [id number] Name: BOLA OLIVEROS Rep #:[id number] : 1965 60 From: Ace parekh MD PCP: Dr. Shaniqua Harrington, DO Status:AD M SYBIL Location: PR3 [id number] Subjective Subjective Patient reports he is doing well. He reports his abdominal pain is much improved since yesterday. He denies nausea or vomiting. Objective Data Objective Data Vital Signs: Vital Signs Temp Pulse Resp BP Pulse Ox O2 Del Method O2 Flow Rate 98 F 89 18 114/68 96 Nasal Cannula 3 04/24/25 03:45 04/24/25 03:45 04/24/25 03:45 04/24/25 03:45 04/24/25 03:45 04/24/25 03:45 04/24/25 03:45 Oxygen Flow Rate (L/min) 3 Oxygen Delivery Method Nasal Cannula Weight: 308 lb Body Mass Index (BMI) 41.8 Intake & Output: Intake and Output for Last 24 Hours 04/22/25 04/23/25 04/24/25 23:59 23:59 23:59 Intake Total 2093 / 2093 1050 / 1050 Output Total 250 / 250 Balance 2088 / 2088 800 / 800 Lab / Micro Data 04/24/25 05:37 04/24/25 05:37 Labs: Laboratory Results - last 24 hr 04/23/25 10:00: WBC 11.2 H, RBC 4.46 L, Hgb 14.0, Hct 40.7, MCV 91.3, MCH 31.4, MCHC 34.4, RDW Std Deviation 41.7, RDW Coeff of Megan 12.6, Plt Count 157, MPV 10.7, Immature Gran % (Auto) 0.500, Neut %(Auto) 76.9 H, Lymph % (Auto) 10.4 L,[place] % (Auto) 10.4 H, Eos % (Auto) 1.6, Baso % (Auto) 0.2, Absolute Neuts (auto)8.6 H, Absolute Lymphs (auto) 1.17, Nucleated RBC % 0, Sodium 136, Potassium 4.2, Chloride 102, Carbon Dioxide 24.1, Anion Gap 10, BUN 7, Creatinine 0.82, Estim Creat Clear Calc 139.23, Est GFR (MDRD) Non-Af 101, BUN/Creatinine Ratio 8.7 L, Glucose 143 H, Calcium 9.1, Total Bilirubin 0.98, AST 20, ALT 25, Alkaline Phosphatase 52, Total Protein 7.0, Albumin 4.0, Globulin 3.0, Albumin/Globulin Ratio 1.3, Lipase 25 04/23/25 11:26: Urine Color Yellow, Urine Clarity Clear, Urine pH 7.0, Ur Specific [place] 1.005, Urine Protein 15 H, Urine Glucose (UA) Normal, Urine Ketones Negative, Urine Occult Blood Negative, Urine Nitrite Negative, Urine Bilirubin Negative, Urine Urobilinogen Normal, Ur Leukocyte Esterase Negative, Urine RBC 0-5 SEEN, Urine WBC 0-5 SEEN, Ur Squamous Epith Cells 0 SEEN, Urine Bacteria 0 SEEN, Urine Mucus RARE 04/24/25 05:37: WBC 11.8 H, RBC 4.08 L, Hgb 12.5 L, Hct 38.9 L, MCV 95.3 H, MCH 30.6, MCHC 32.1 D, RDW Std Deviation 45.3 H, RDW Coeff of Megan 12.9, Plt Count 142 L, MPV 11.0, Immature Gran % (Auto) 0.800, Neut % (Auto) 79.4 H, Lymph % (Auto) 9.3 L, [place] % (Auto) 10.1 H, Eos % (Auto) 0.2, Baso % (Auto) 0.2, Absolute Neuts (auto) 9.4 H, Absolute Lymphs (auto) 1.10, Nucleated RBC % 0, Sodium 136, Potassium 4.4, Chloride 103, Carbon Dioxide 23.3, Anion Gap 9, BUN 10, Creatinine 0.89, Estim Creat Clear Calc 127.89, Est GFR (MDRD) Non-Af 98, BUN/Creatinine Ratio 10.9, Glucose 114 H, Calcium 8.5 Radiography Diagnostic Testing: Radiology Impression Abdomen/Pelvis CT 04/23/25 09:57 IMPRESSION: 1. Mild fatty liver. 2. Acute, uncomplicated appendicitis. Significant amount of inflammatory changes shown in the periappendiceal fat. 3. Diverticulosis without diverticulitis. 4. Small fat containing right inguinal hernia. Reading Location: [id number] Testicular Ultrasound 04/23/25 09:57 IMPRESSION: No evidence of testicular torsion. Small bilateral epididymal cysts. Small bilateral hydroceles. Reading Location: [facility] Physical Exam Const oriented x3 and no apparent distress Resp normal respiratory effort GI soft to palpation and non-tender Assessment & Plan Assessment/Plan (1) Acute appendicitis: QUALIFIERS: Acute appendicitis type: unspecified acute appendicitis type Qualified Code(s): K35.80 - Unspecified acute appendicitis PLAN: Patient is doing well following laparoscopic appendectomy. Once he tolerates a diet today andgets weaned from his oxygen I will discharge him home 04/24/25 0717 Cosigner Signature (if applicable): CC: ~ Signed [facility]10-13-2025 Consult note Author Felice Baltazar [facility] Note Date/Time 2025 1 1:08am [facility] Medical Records Department [address] [place] [address] Anesthesia Postop Eval II 04/23/25 1422 MR#: [id number] Acct: [id number] Name: BOLA OLIVEROS Rep #:[id number] : 1965 59 From: Felice Baltazar MD PCP: Dr. Shaniqua Harrington, DO Status:RE G SD Y Race: C Location: [place] [address] Anesthesia Postop Eval I Sum Postop Eval Completion status Anesthesia document: Postop Eval 1 completed: Yes Anesthesia Postop Eval I Summary Anesthesia Postop Eval I Summary: Anesthesia Postop Eval I: Assessment Summary Airway patent Yes 04/23/25 14:18 MANAGER [email or web address] Spontaneous unlabored Yes 04/23/25 14:18 MANAGER [email or web address] respirations Mental status Awake 04/23/25 14:18 MANAGER [email or web address] nausea No 04/23/25 14:18 MANAGER [email or web address] Vomiting No 04/23/25 14:18 MANAGER [email or web address] Anesthesia Postop Eval I: Fluid Summary Crystalloid volume administer 700 04/23/25 14:18 MANAGER [email or web address] (ml) Colloids volume administered ( ml) Blood Product volume administered (ml) Total IV fluid infused 700 04/23/25 14:18 MANAGER [email or web address] Anesthesia Postop Eval I: Summary Notes Anesthesia Complication No 04/23/25 14:18 MANAGER [email or web address] Anesthesia Complication Comment: Post-operative progress note Anesthesia: Postop Eval II Evaluation Mental status: Awake Pain Level: 2 nausea: No Vomiting: No 04/23/25 1422 <Electronically signed by Felice Baltazar MD > Date _ Felice Baltazar MD Cosigner Signature: Date CC: ~ Signed [facility] Work Phone: [phone]) 220-797410-13-2025 Consult note Author Cathy [facility] Note Date/Time April 23, 2025 2 :18pm [facility] Medical Records Department [address] [place] [address] Anesthesia Postop Eval I 04/23/25 1416 MR#: [id number] Acct: [id number] Name: BOLA OLIVEROS Rep #:[id number] : 1965 59 From: Cathy Grissom CRNA PCP: Dr. Shaniqua Harrington, DO Status:RE G SDC Y Race: C Location: [place] [address] Anesthesia: Postop Eval I Current Vital Signs Temperature: 97 F Pulse Rate: 101 Blood Pressure: 159/109 Respiratory Rate: 20 Pulse Ox: 97 Oxygen Delivery Method: Nasal Cannula Oxygen Flow Rate (L/min): 8 Assessment Airway patent: Yes Spontaneous unlabored respirations: Yes Mental status: Awake nausea: No Vomiting: No Anesthesia Complication: No Fluid Hydration Crystalloid volume administer (ml): 700 Total IV fluid infused: 700 Progress Note Anesthesia document: Postop Eval 1 completed: Yes 04/23/25 1418 <Electronically signed by Cathy gilmore MANAGER MAC> Date _ Cathy Grissom MANAGER MAC Cosigner Signature: Date CC: ~ Signed [facility] Work Phone: 1(273) 452-789710-13-2025 Evaluation note* Diagnosis Onset Date Resolution Status Admit Date Acute appendicitis resolved Octobe r 2024 1:55pm [facility] Work Phone: [phone] 460-679110-13-2025 History and physical note Author Ace Renteria [facility] Note Date/Time April 23, 2025 1 2:43pm [facility] Medical Records Department [address] [place] [address] H&P Exam - Surgical 04/23/25 1241 MR#: [id number] Acct: [id number] Name: BOLA OLIVEROS Rep #:[id number] : 1965 59 From: Ace parekh MD PCP: Dr. Shaniqua Harrington, DO Status:[facility] Location: [facility] A-2 HPI - General HPI Narrative BOLA OLIVEROS, is a 59 M who presents with lower abdominal pain. Patient reports the pain started yesterday. He denies fevers or chills. Says the pain is in the right lower quadrant does radiate down to his right testicle. [facility] Medical History Dyspnea on exertion Nicotine dependence Obesity Coronary artery disease Vitamin D deficiency Appetite loss 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] Right hand pain SOB (shortness of breath) Fatigue Heartburn Syncope and collapse Pulmonary hypertension BMI 40.0-44.9, adult EtOH dependence Elevated liver function tests Anxiety Insomnia Tobacco dependence Sleep apnea Essential hypertension Chest pain Nocturnal hypoxemia COPD (chronic obstructive pulmonary disease) Home Medications ?Medication ?Instructions ?Recorded ?Last Taken ?Type trazodone 50 mg tablet 150 mg PO QHS PRN insomnia 0 02/08/23 04/22/25 History aspirin 81 mg tablet,delayed 81 mg PO DAILY heart heal th 02/16/23 04/23/25 History release losartan 50 mg tablet 50 mg PO DAILY blood pressur e 03/24/23 04/22/25 History nitroglycerin 0.4 mg sublingual 0.4 mg sublingual Q5M PRN 04/08/23 Unknown Rx tablet Cardiac/Chest Pain #15 tabs clopidogrel 75 mg tablet 75 mg PO DAILY antiplatelet #90 05/22/24 04/23/25 Rx tabs ranolazine 500 mg tablet,extended 500 mg PO BID HEART #60 tabs 11/10/24 04/23/25 Rx release,12 hr metoprolol tartrate 50 mg tablet 50 mg PO BID heart # 180 tabs 02/26/25 04/23/25 Rx atorvastatin 10 mg tablet 10 mg PO QHS cholesterol #90 tabs 04/03/25 04/22/25 Rx magnesium 250 mg tablet 250 mg PO DAILY SUPPLEMENT 1 04/22/25 History multivitamin (Daily Multi-Vitamin 1 tab PO DAILY SUPPL EMENT 04/23/25 04/22/25 History tablet) sertraline 50 mg tablet 50 mg PO DAILY MOOD 04/23/25 04/22/25 History Allergy/AdvReac Type Severity Reaction Status Date / Time No Known Allergies Allergy Verified 04/23/25 12:41 Family History Mother Diabetes Heart disease Sister Pulmonary hypertension Father Cancer stomach Heart disease Surgical History Stented coronary artery Hx of cardiac catheterization (~02/02/24) Hx of plastic surgery Social History household members: spouse Smoking Status: Current every day smoker tobacco type: cigarettes alcohol intake: current alcohol intake frequency: 3 or more drinks per day Alcohol type: beer details: 12 beer substance use type: does not use caffeine: No ROS Constitutional Constitutional: Denies anorexia, chills, fatigue or fever(s) Eyes Eyes: Denies blurry vision ENT HEENT: Denies abnormal hearing Cardiovascular Cardiovascular: Reports chest pain Respiratory/Chest Respiratory/Chest: Reports dyspnea on exertion; Denies cough Gastrointestinal Gastrointestinal: Reports abdominal pain; Denies change in bowel habits, coffee ground emesis, nausea or vomiting Genitourinary Genitourinary: Denies change in urinary stream or difficulty urinating Musculoskeletal Musculoskeletal: Denies abnormal gait Integumentary Integumentary: Denies jaundice or new lesions Neurologic Neurologic: Denies abnormal gait Psychiatric Psychiatric: Denies anxiety Vital Signs Vital Signs Vital Signs: 04/23/25 08:49 04/23/25 11:46 04/23/25 12:11 Temperature 99.0 F Temperature Source Oral Pulse Rate 86 70 78 Respiratory Rate 18 18 18 Blood Pressure 144/72 H 163/63 H 149/62 H Blood Pressure Mean 96 96 91 Blood Pressure Source Monitor Blood Pressure Position Semi-Fowlers Blood Pressure Location Right Arm Pulse Ox 96 97 97 Oxygen Delivery Method Room Air Room Air Room Air 04/23/25 12:13 04/23/25 12:20 Temperature 98.3 F 98.3 F Temperature Source Pulse Rate 77 77 Respiratory Rate 18 18 Blood Pressure 149/62 H 149/62 H Blood Pressure Mean 91 Blood Pressure Source Blood Pressure Position Blood Pressure Location Pulse Ox 96 96 Oxygen Delivery Method Weight Weight: 302 lb 11.115 oz Body Mass Index (BMI) 41.0 Physical Exam Const oriented x3 and no apparent distress Resp normal respiratory effort Cardio regular rate and regular rhythm GI soft to palpation Palpation: tender RLQ Extremity normal to inspection Results Lab / Micro Data 04/23/25 10:00 04/23/25 10:00 Labs: Laboratory Results - last 24 hr 04/23/25 10:00: WBC 11.2 H, RBC 4.46 L, Hgb 14.0, Hct 40.7, MCV 91.3, MCH 31.4, MCHC 34.4, RDW Std Deviation 41.7, RDW Coeff of Megan 12.6, Plt Count 157, MPV 10.7, Immature Gran % (Auto) 0.500, Neut % (Auto) 76.9 H, Lymph % (Auto) 10.4 L,[place] % (Auto) 10.4 H, Eos % (Auto) 1.6, Baso % (Auto) 0.2, Absolute Neuts (auto)8.6 H, Absolute Lymphs (auto) 1.17, Nucleated RBC % 0, Sodium 136, Potassium 4.2, Chloride 102, Carbon Dioxide 24.1, Anion Gap 10, BUN 7, Creatinine 0.82, Estim Creat Clear Calc 139.23, Est GFR (MDRD) Non-Af 101, BUN/Creatinine Ratio 8.7 L, Glucose 143 H, Calcium 9.1, Total Bilirubin 0.98, AST 20, ALT 25, Alkaline Phosphatase 52, Total Protein 7.0, Albumin 4.0, Globulin 3.0, Albumin/Globulin Ratio 1.3, Lipase 25 04/23/25 11:26: Urine Color Yellow, Urine Clarity Clear, Urine pH 7.0, Ur Specific [place] 1.005, Urine Protein 15 H, Urine Glucose (UA) Normal, Urine Ketones Negative, Urine Occult Blood Negative, Urine Nitrite Negative, Urine Bilirubin Negative, Urine Urobilinogen Normal, Ur Leukocyte Esterase Negative, Urine RBC 0-5 SEEN, Urine WBC 0-5 SEEN, Ur Squamous Epith Cells 0 SEEN, Urine Bacteria 0 SEEN, Urine Mucus RARE Imaging Radiology Impression Abdomen/Pelvis CT 04/23/25 09:57 IMPRESSION: 1. Mild fatty liver. 2. Acute, uncomplicated appendicitis. Significant amount of inflammatory changes shown in the periappendiceal fat. 3. Diverticulosis without diverticulitis. 4. Small fat containing right inguinal hernia. Reading Location: [id number] Testicular Ultrasound 04/23/25 09:57 IMPRESSION: No evidence of testicular torsion. Small bilateral epididymal cysts. Small bilateral hydroceles. [facility] Assessment & Plan Assessment/Plan (1) Acute appendicitis: QUALIFIERS: Acute appendicitis type: unspecified acute appendicitis type Qualified Code(s): K35.80 - Unspecified acute appendicitis PLAN: The patient has right lower quadrant pain and he had a CT scan which showed acute appendicitis. I recommended laparoscopic appendectomy. I discussed the procedure with the patient in detail. I discussed the risks of the procedure such as bleeding, infection, injury to other organs like the bowel, bladder, ureter. I also discussed the increased risk of bleeding as the patient is on aspirin and Plavix. I also discussed the increased risk of heart attack or stroke as the patient has had 8 heart stents in the past and has chestpain at rest. The patient was in the emergency room last month with chest pain and was told that it did not sound like acute coronary syndrome. 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 Ace Renteria MD Pager: [facility] [address], [address] [place] [address] Office: 04/23/25 1243 <Electronically signed by Ace Renteria MD> Cosigner Signature (if applicable): CC: Dr. Ace Renteria MD; Dr. Shaniqua Harrington, DO~ Signed [facility] Work Phone: [phone] 477-721510-13-2025 Consult note Author Felice Baltazar [facility] Note Date/Time April 23, 2025 1 2:21pm [facility] Medical Records Department [address] [place] [address] Pre-Anesthesia Evaluation 04/23/25 1220 MR#: [id number] Acct: [id number] Name: BOLA OLIVEROS Rep #:[id number] : 1965 59 From: Felice Baltazar MD PCP: Dr. Shaniqua Harrington, Status:RE G SDC Y Race: C Location: [place] [address] ASA Classification* ASA Classification ASA Classification: 3 and E Assessment & Plan Anesthesia* Anesthesia Assessment Anesthesia Assessment: Discussed sedation and/or anesthesia options, risks, benefits, and alternatives with patient/parents/legal guardian/POA. Questions invited. The patient/parents/legal guardian/POA seems to understand and agrees to proceedwith anesthesia plan. Reviewed the physical assessment, medical history, allergy history and patient home medications list prior to surgery/procedure/anesthetic and documented any changes. Performed airway and anesthesia risk assessments. Anesthesia Type Anesthesia Type: General Anesthesia Focused Assessment* Temperature: 98.3 F Pulse Rate: 77 Blood Pressure: 149/62 Respiratory Rate: 18 Pulse Ox: 96 Airway Assessment Mouth opens: >3 cm Mallampati Score: II Labs Anesthesia Preop lab: CBC WBC, (4.4-11.0) 11.2 K/mm3 H Today, 10:00 RBC, (4.6-6.2) 4.46 M/mm3 L Today, 10:00 Hgb, (13.0-16.5) 14.0 g/dL Today, 10:00 Hct, (40-54) 40.7 % Today, 10:00 Plt Count, (150-450) 157 K/mm3 Today, 10:00 CHEMISTRY Potassium, (3.3-5.1) 4.2 mmol/L Today, 10:00 Sodium, (133-145) 136 mmol/L Today, 10:00 Magnesium, (1.6-2.6) 2.0 mg/dL 02/02/24, 14:12 Phosphorus, (2.5-4.9) 3.2 mg/dL 02/02/24, 14:12 BUN, (4-19) 7 mg/dL Today, 10:00 Creatinine, (0.70-1.20) 0.82 mg/dL Today, 10:00 Glucose, (70-99) 143 mg/dL H Today, 10:00 COAG PT, (11.7-14.9) 13.3 SECONDS 01/14/24, 09:33 Pre-Assessment Diagnosis/Proposed Procedure Planned Operative Procedure(s): Laparoscopic appendectomy. Anesthesia History Anesthesia History - museum tour guide: Anesthesia History - museum tour guide Hx Hospitalization Any Problems With Anesthesia No 04/23/25 12:11 Cholinesterase deficiency You/Your Family Experience No 04/23/25 12:11 fever (hyperthermia) with Relationship Recent Exposure to Contagious Disease Does patient have nerve No 04/23/25 12:11 stimulator Patient instructed to have No 04/23/25 12:11 device shut off --Does patient have Pacemaker or ICD? When Was Last Pacemaker Check QUESTION #4 FULL TEXT: You/Your Family Experience fever (hyperthermia) with Anesthesia Last Oral Intake Last Oral intake: Last Oral Intake NPO since Meds taken in AM with sips of water? Meds patient instructed to take am of surgery PONV PONV - museum tour guide: PONV - museum tour guide Female HX of Motion Sickness HX of N/V After Surgery Non-Smoker Duration of Surgery greater than 60 minutes Number of Risk Factors PONV Score Height & Weight Height & Weight: Anesthesia: Height & Weight Height 6 ft 04/23/25 12:11 Weight: 137.3 kg 04/23/25 12:11 Body Mass Index (BMI) 41.0 04/23/25 12:11 Respiratory Assessment Respiratory Assessment - museum tour guide: Respiratory Tract Infection Hx - museum tour guide Hx Respiratory Tract Infection STOP Sleep Apnea STOP Sleep Apnea - museum tour guide: STOP Sleep Apnea - museum tour guide Hx Hypertension Yes 04/23/25 12:11 Hx Sleep Apnea Yes 04/23/25 12:11 CPAP No 04/23/25 12:11 BIPAP No 04/23/25 12:11 Do you snore loudly (louder than talking or can be heard Do you often feel tired/ fatigued/ sleepy during daytime? Has anyone observed you stop breathing during sleep? STOP Results Positive 04/23/25 12:11 QUESTION #5 FULL TEXT : Do you snore loudly (louder than talking or can be heard through closed doors)? 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 Specify any problems Hx of Preganancy in last 3 Months Nurse Filling Out Transfusion & Questions: Date: Time: Patient unable to answer at this time (ie. confused, unrespo /Reproduction History /Reproductive History - museum tour guide: /Reproductive Hx- museum tour guide Hx Now No 04/23/25 12:11 Gestational Age (in weeks): EDC: Hx Hx Para Hx Section SAB No 04/23/25 12:11 Active Medications Active Medications: Current Medications Generic Name Dose Route Start Last Admin Trade Name Freq PRN Reason Stop Dose Admin Piperacillin Sod/Tazobactam 50 mls @ 100 mls/hr 04/23/25 11:55 04/23/25 12:09 Sod 3.375 gm/ Sodium Chloride IV 04/23/25 12:24 100 mls/hr X1 ONE Administration PFSH Medical History Dyspnea on exertion Nicotine dependence Obesity Coronary artery disease Vitamin D deficiency Appetite loss 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] Right hand pain SOB (shortness of breath) Fatigue Heartburn Syncope and collapse Pulmonary hypertension BMI 40.0-44.9, adult EtOH dependence Elevated liver function tests Anxiety Insomnia Tobacco dependence Sleep apnea Essential hypertension Chest pain Nocturnal hypoxemia COPD (chronic obstructive pulmonary disease) Home Medications ?Medication ?Instructions ?Recorded ?Last Taken ?Type trazodone 50 mg tablet 150 mg PO QHS PRN insomnia 0 02/08/23 04/22/25 History aspirin 81 mg tablet,delayed 81 mg PO DAILY heart heal th 02/16/23 04/23/25 History release losartan 50 mg tablet 50 mg PO DAILY blood pressur e 03/24/23 04/22/25 History nitroglycerin 0.4 mg sublingual 0.4 mg sublingual Q5M PRN 04/08/23 Unknown Rx tablet Cardiac/Chest Pain #15 tabs clopidogrel 75 mg tablet 75 mg PO DAILY antiplatelet #90 05/22/24 04/23/25 Rx tabs ranolazine 500 mg tablet,extended 500 mg PO BID HEART #60 tabs 11/10/24 04/23/25 Rx release,12 hr metoprolol tartrate 50 mg tablet 50 mg PO BID heart # 180 tabs 02/26/25 04/23/25 Rx atorvastatin 10 mg tablet 10 mg PO QHS cholesterol #90 tabs 04/03/25 04/22/25 Rx magnesium 250 mg tablet 250 mg PO DAILY SUPPLEMENT 1 04/22/25 History multivitamin (Daily Multi-Vitamin 1 tab PO DAILY SUPPL EMENT 04/23/25 04/22/25 History tablet) sertraline 50 mg tablet 50 mg PO DAILY MOOD 04/23/25 04/22/25 History Allergy/AdvReac Type Severity Reaction Status Date / Time No Known Allergies Allergy Verified 04/23/25 08:49 Family History Mother Diabetes Heart disease Sister Pulmonary hypertension Father Cancer stomach Heart disease Surgical History Stented coronary artery Hx of cardiac catheterization (~02/02/24) Hx of plastic surgery Social History household members: spouse Smoking Status: Current every day smoker tobacco type: cigarettes alcohol intake: current alcohol intake frequency: 3 or more drinks per day Alcohol type: beer details: 12 beer substance use type: does not use caffeine: No Review of Systems (Anesthesia) ROS Narrative System reviewed and no additional complaints, except as documented. 04/23/25 1221 <Electronically signed by Felice Baltazar MD > Date _ Felice Baltazar MD Cosigner Signature: Date CC: ~ Signed [facility] Work Phone: 1(280) 929-652410-13-2025 Consult note [facility] Medical Records Department [address] [place] [address] Anesthesia Postop Eval I 04/23/25 1416 MR#: [id number] Acct: [id number] Name: BOLA OLIVEROS Rep #:[id number] : 1965 59 From: Cathy Grissom CRNA PCP: Dr. Shaniqua Harrington, DO Status:RE G SD Y Race: C Location: [place] [address] Anesthesia: Postop Eval I Current Vital Signs Temperature: 97 F Pulse Rate: 101 Blood Pressure: 159/109 Respiratory Rate: 20 Pulse Ox: 97 Oxygen Delivery Method: Nasal Cannula Oxygen Flow Rate (L/min): 8 Assessment Airway patent: Yes Spontaneous unlabored respirations: Yes Mental status: Awake nausea: No Vomiting: No Anesthesia Complication: No Fluid Hydration Crystalloid volume administer (ml): 700 Total IV fluid infused: 700 Progress Note Anesthesia document: Postop Eval 1 completed: Yes 04/23/[address] MANAGER MAC> Date _ Cathy Grissom MANAGER MAC Cosigner Signature: Date CC: ~ Signed [facility]10-13-2025 Discharge summary Author Lloyd Gerard [facility] Note Date/Time April 23, 2025 1 2:14pm [facility] Medical Records Department [address] [place] [address] Emergency Department Summary 04/23/25 MR#: [id number] Acct: [id number] Name: BOLA OLIVEROS Rep #:[id number] : 1965 59 From: Lloyd pierson DO PCP: Dr. Shaniqua Harrington, DO Status:[facility] Location: [facility] A-2 HPI History of Present Illness Chief Complaint: Abd Pain Narrative Narrative: Chief complaint and HPI: 59-year-old male with past medical history of CAD with PCI, HTN, HLD presents for evaluation of right lower quadrant abdominal pain. Onset of symptoms yesterday and radiates into his right testicle. Endorses constipation in which she has taken stool softeners with minimal relief. Endorses nausea. Has a history of constipation. Denies any fever, chills, shortness of breath, chest pain, vomiting, dysuria. No history of kidney stones. Review of systems: See HPI Medications: As listed on the chart Allergies: As listed on the chart PFSH: Per chart Vital signs: As listed on the chart. Reviewed. Physical exam: Gen: A&O x3, NAD Head: Normocephalic, atraumatic Eyes: No sclera icterus, conjunctiva clear ENT: Moist mucous membranes Neck: Trachea midline CV: RRR, no murmurs Resp: Lungs CTA BL, no w/r/c GI: Abd soft, non-distended, tender to palpation in the right lower quadrant andsuprapubic region, no rebound or rigidity : No CVA tenderness. Circumcised penis. No penile tenderness or discharge. Nopenile or testicular swelling. Normal lie and position of the testicles. Right testicle tender to palpation diffusely without masses or skin changes. Cremasteric reflexes intact and equal bilaterally. No rashes. No palpable hernias. Musc: Full ROM, no deformity Skin: Warm, dry Neuro: Alert, oriented, grossly intact, sensation intact Psych: Cooperative, appropriate mood and affect [facility] Medical History Dyspnea on exertion Nicotine dependence Obesity Coronary artery disease Vitamin D deficiency Appetite loss 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] Right hand pain SOB (shortness of breath) Fatigue Heartburn Syncope and collapse Pulmonary hypertension BMI 40.0-44.9, adult EtOH dependence Elevated liver function tests Anxiety Insomnia Tobacco dependence Sleep apnea Essential hypertension Chest pain Nocturnal hypoxemia COPD (chronic obstructive pulmonary disease) Home Medications ?Medication ?Instructions ?Recorded ?Last Taken ?Type trazodone 50 mg tablet 150 mg PO QHS PRN insomnia 0 02/08/23 04/22/25 History aspirin 81 mg tablet,delayed 81 mg PO DAILY heart heal th 02/16/23 04/23/25 History release losartan 50 mg tablet 50 mg PO DAILY blood pressur e 03/24/23 04/22/25 History nitroglycerin 0.4 mg sublingual 0.4 mg sublingual Q5M PRN 04/08/23 Unknown Rx tablet Cardiac/Chest Pain #15 tabs clopidogrel 75 mg tablet 75 mg PO DAILY antiplatelet #90 05/22/24 04/23/25 Rx tabs ranolazine 500 mg tablet,extended 500 mg PO BID HEART #60 tabs 11/10/24 04/23/25 Rx release,12 hr metoprolol tartrate 50 mg tablet 50 mg PO BID heart # 180 tabs 02/26/25 04/23/25 Rx atorvastatin 10 mg tablet 10 mg PO QHS cholesterol #90 tabs 04/03/25 04/22/25 Rx magnesium 250 mg tablet 250 mg PO DAILY SUPPLEMENT 1 04/22/25 History multivitamin (Daily Multi-Vitamin 1 tab PO DAILY SUPPL EMENT 04/23/25 04/22/25 History tablet) sertraline 50 mg tablet 50 mg PO DAILY MOOD 04/23/25 04/22/25 History Allergy/AdvReac Type Severity Reaction Status Date / Time No Known Allergies Allergy Verified 04/23/25 08:49 Family History Mother Diabetes Heart disease Sister Pulmonary hypertension Father Cancer stomach Heart disease Surgical History Stented coronary artery Hx of cardiac catheterization (~02/02/24) Hx of plastic surgery Social History (Updated 03/21/25 @ 16:28 by Chauncey Cerda) household members: spouse Smoking Status: Current every day smoker tobacco type: cigarettes alcohol intake: current alcohol intake frequency: 3 or more drinks per day Alcohol type: beer details: 12 beer substance use type: does not use caffeine: No EXAM Physical Exam Const Vital Signs: 04/23/25 08:49 04/23/25 11:46 Temperature 99.0 F Temperature Source Oral Pulse Rate 86 70 Respiratory Rate 18 18 Blood Pressure 144/72 H 163/63 H Blood Pressure Mean 96 96 Pulse Ox 96 97 Oxygen Delivery Method Room Air Room Air MDM MDM MDM Narrative Medical decision making narrative: 59-year-old male with past medical history of CAD with PCI, HTN, HLD presents for evaluation of right lower quadrant abdominal pain. Onset of symptoms yesterday and radiates into his right testicle. Endorses constipation and nausea. Differential diagnosis includes but is not limited to appendicitis, UTI, urolithiasis, epididymitis, gastroenteritis, constipation. NS bolus, morphine, Zofran ordered for symptoms. Abdominal pain workup ordered including CT abdomen pelvis and testicular ultrasound. CBC with mild leukocytosis 11.2. No anemia. Platelets unremarkable. His CMP relatively unremarkable. Lipase unremarkable. UA negative for UTI. Testicular ultrasound negative for torsion. Small bilateral epididymal cyst and bilateral hydroceles. CT abdomen pelvis shows mild fatty liver. Acute uncomplicated appendicitis. Diverticulosis without diverticulitis. Small fat-containing right inguinal hernia. Patient's symptoms are likely secondary to acute appendicitis. Patient NPO. Zosyn ordered. Patient was updated of the results and the plan for surgery. He confirmed understanding. Patient was discussed with Dr. Zavala who will be taking the patient to the OR. Impression: 1. Acute appendicitis Lab Data Labs: Laboratory Results - last 24 hr 04/23/25 04/23/25 10:00 11:26 WBC 11.2 H RBC 4.46 L Hgb 14.0 Hct 40.7 MCV 91.3 MCH 31.4 MCHC 34.4 RDW Std Deviation 41.7 RDW Coeff of Megan 12.6 Plt Count 157 MPV 10.7 Immature Gran % (Auto) 0.500 Neut % (Auto) 76.9 H Lymph % (Auto) 10.4 L [place]lin % (Auto) 10.4 H Eos % (Auto) 1.6 Baso % (Auto) 0.2 Absolute Neuts (auto) 8.6 H Absolute Lymphs (auto) 1.17 Nucleated RBC % 0 Sodium 136 Potassium 4.2 Chloride 102 Carbon Dioxide 24.1 Anion Gap 10 BUN 7 Creatinine 0.82 Estim Creat Clear Calc 139.23 Est GFR (MDRD) Non-Af 101 BUN/Creatinine Ratio 8.7 L Glucose 143 H Calcium 9.1 Total Bilirubin 0.98 AST 20 ALT 25 Alkaline Phosphatase 52 Total Protein 7.0 Albumin 4.0 Globulin 3.0 Albumin/Globulin Ratio 1.3 Lipase 25 Urine Color Yellow Urine Clarity Clear Urine pH 7.0 Ur Specific Friendship 1.005 Urine Protein 15 H Urine Glucose (UA) Normal Urine Ketones Negative Urine Occult Blood Negative Urine Nitrite Negative Urine Bilirubin Negative Urine Urobilinogen Normal Ur Leukocyte Esterase Negative Urine RBC 0-5 SEEN Urine WBC 0-5 SEEN Ur Squamous Epith Cells 0 SEEN Urine Bacteria 0 SEEN Urine Mucus RARE Radiography Diagnostic Testing: Clinical Impression(s) from Imaging Studies Abdomen/Pelvis CT 04/23/25 09:57 IMPRESSION: 1. Mild fatty liver. 2. Acute, uncomplicated appendicitis. Significant amount of inflammatory changes shown in the periappendiceal fat. 3. Diverticulosis without diverticulitis. 4. Small fat containing right inguinal hernia. Reading Location: [facility] Testicular Ultrasound 04/23/25 09:57 IMPRESSION: No evidence of testicular torsion. Small bilateral epididymal cysts. Small bilateral hydroceles. Reading Location: [facility] Discharge Plan Triage Chief Complaint: Abd Pain ED Provider: Lloyd Gerard Dx/Rx/DC Orders Prescriptions: No Action trazodone 50 mg tablet 150 mg PO QHS PRN (Reason: insomnia) Patient Comments: take 3 tablet by mouth at bedtime if needed for sleep / insomnia aspirin 81 mg tablet,delayed release (DR/EC) 81 mg PO DAILY losartan 50 mg tablet 50 mg PO DAILY ranolazine 500 mg tablet extended release 12 hr 500 mg PO BID Qty: 60 11RF Patient Comments: PT STATES TAKES 1 TAB QAM nitroglycerin 0.4 mg Tablet, Sublingual 0.4 mg sublingual Q5M PRN (Reason: Cardiac/Chest Pain) Qty: 15 3RF sertraline 50 mg tablet 50 mg PO DAILY multivitamin [Daily Multi-Vitamin] Tablet 1 tab PO DAILY magnesium 250 mg tablet 250 mg PO DAILY clopidogrel 75 mg tablet 75 mg PO DAILY Qty: 90 3RF metoprolol tartrate 50 mg tablet 50 mg PO BID Qty: 180 2RF atorvastatin 10 mg tablet 10 mg PO QHS Qty: 90 3RF Primary Care Provider: Shaniqua Harrington Referrals: Gunjan Jimenez NP-C [Med Staff - [facility] Practice Prof, Internal Medicine] Print Language: Tunisian What to do if you have Problems For any increased pain, shortness of breath, bleeding, nausea or vomiting, chestpain, or any unexpected problems, contact your Primary Care Provider. Call [facility] ([phone]) or report to the closest Emergency Room. Call 911 if necessary. 04/23/25 1214 <Electronically signed by Lloyd Gerard DO> Cosigner Signature (if applicable): CC: Dr. Shaniqua Harrington DO ~ Signed [facility] Work Phone: [phone]) 662-215610-13-2025 Procedure note [facility] Medical Records Department [address] [place] [address] Operative Report 04/23/25 1354 MR#: [id number] Acct: [id number] Name: BOLA OLIVEROS Rep #:[id number] : 1965 59 From: Ace parekh MD PCP: Dr. Shaniqua Harrington DO Status:[facility] Location: [place] [address] Operative Report (Standard) Operative Information Date of Procedure: 04/23/25 Pre-Operative Diagnosis: Acute appendicitis Post-Operative Diagnosis: Acute perforated appendicitis Surgery/Procedure Performed: Laparoscopic appendectomy bar host: Yes Vfx Artist: Joseph Redd Tasks completed by business banking sales assistant: Opening & closing Type of Anesthesia: General/Regional RN Documented Start/Stop Times: Operation Date: 04/23/25 13:55 Case Time Into Pre-Op 04/23/25 12:23 Anesthesia Start 04/23/25 13:01 Into Room 04/23/25 13:01 Out of Pre-Op 04/23/25 13:01 Procedure Start 04/23/25 13:24 Procedure Start Time: :24 Procedure Stop Time: 14:00 Select all DRAINS/GRAFTS/IMPLANTS that apply: None Estimated Blood Loss: 5 Specimen collected: Yes Description of specimen(s) removed: Appendix Description of surgery: The patient was brought into the operating room and general anesthesia was induced. The left arm was tucked and the abdomen was prepped and draped in usual sterile fashion. A small midline incision was made superior to the umbilicus and deepened to the level of the fascia. The fascia was elevated and incised. The peritoneum was also elevated and incised. A finger sweep was performed and a balloontrocar was placed into the abdomen and inflated. The abdomen was insufflated to 15 mmHg and the camera was inserted and the abdomen was inspected for any injuries upon entering the abdomen. There were none. Thepatient was placed in Trendelenburg position and a 5 mm ports placed in the leftlower quad rant and suprapubic areas under direct visualization. Next using atraumatic bowel graspers the appendix was identified. The appendix was perforated at its midsection. There was stool oozing from it. The appendix wasgrasped and elevated and Enseal was used to take down the mesoappendix. A stapler was used to come across the base of the appendix. The appendix was thenplaced in Endo Catch bag and removed through the umbilical incision. The stapleline was inspected and found to be hemostatic and intact. The 2 5 mm ports are removed under direct visualization. The balloon trocar was deflated and removedand all the air was removed from the abdomen. The umbilical incision fascia wasclosed with an 0 Vicryl [id number] suture. The incisions were then irrigated with saline and dried. Local anesthetic was injected into the incision sites. The skin incisions were then closed with interrupted 4-0 Monocryl suture and Steri-Strips. Bandages were applied and the patient was awoken and taken to PACU in stable condition. Patient tolerated the procedure well. Surgical Findings: Perforated appendicitis Complications Complications: No Admit VTE Documentation VTE Mechan Device Prophylaxis: SCD's 04/23/25 1355 Cosigner Signature (if applicable): CC: Dr. Ace Renteria MD; Dr. Shaniqua Harrington, DO~ Signed [facility]10-13-2025 History and physical note [facility] Medical Records Department [address] [place] [address] H&P Exam - Surgical 04/23/25 1241 MR#: [id number] Acct: [id number] Name: BOLA OLIVEROS Rep #:[id number] : 1965 59 From: Ace parekh MD PCP: Dr. Shaniqua Harrington, DO Status:[facility] Location: [facility] AC-TB A-2 HPI - General HPI Narrative BOLA OLIVEROS, is a 59 M who presents with lower abdominal pain. Patient reports the pain started yesterday. He denies fevers or chills. Says the pain is in the right lower quadrant does radiate down to his right testicle. [facility] Medical History Dyspnea on exertion Nicotine dependence Obesity Coronary artery disease Vitamin D deficiency Appetite loss 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] Right hand pain SOB (shortness of breath) Fatigue Heartburn Syncope and collapse Pulmonary hypertension BMI 40.0-44.9, adult EtOH dependence Elevated liver function tests Anxiety Insomnia Tobacco dependence Sleep apnea Essential hypertension Chest pain Nocturnal hypoxemia COPD (chronic obstructive pulmonary disease) Home Medications ?Medication ?Instructions ?Recorded ?Last Taken ?Type trazodone 50 mg tablet 150 mg PO QHS PRN insomnia 0 02/08/23 04/22/25 History aspirin 81 mg tablet,delayed 81 mg PO DAILY heart heal th 02/16/23 04/23/25 History release losartan 50 mg tablet 50 mg PO DAILY blood pressur e 03/24/23 04/22/25 History nitroglycerin 0.4 mg sublingual 0.4 mg sublingual Q5M PRN 04/08/23 Unknown Rx tablet Cardiac/Chest Pain #15 tabs clopidogrel 75 mg tablet 75 mg PO DAILY antiplatelet #90 05/22/24 04/23/25 Rx tabs ranolazine 500 mg tablet,extended 500 mg PO BID HEART #60 tabs 11/10/24 04/23/25 Rx release,12 hr metoprolol tartrate 50 mg tablet 50 mg PO BID heart # 180 tabs 02/26/25 04/23/25 Rx atorvastatin 10 mg tablet 10 mg PO QHS cholesterol #90 tabs 04/03/25 04/22/25 Rx magnesium 250 mg tablet 250 mg PO DAILY SUPPLEMENT 1 04/22/25 History multivitamin (Daily Multi-Vitamin 1 tab PO DAILY SUPPL EMENT 04/23/25 04/22/25 History tablet) sertraline 50 mg tablet 50 mg PO DAILY MOOD 04/23/25 04/22/25 History Allergy/AdvReac Type Severity Reaction Status Date / Time No Known Allergies Allergy Verified 04/23/25 12:41 Family History Mother Diabetes Heart disease Sister Pulmonary hypertension Father Cancer stomach Heart disease Surgical History Stented coronary artery Hx of cardiac catheterization (~02/02/24) Hx of plastic surgery Social History household members: spouse Smoking Status: Current every day smoker tobacco type: cigarettes alcohol intake: current alcohol intake frequency: 3 or more drinks per day Alcohol type: beer details: 12 beer substance use type: does not use caffeine: No ROS Constitutional Constitutional: Denies anorexia, chills, fatigue or fever(s) Eyes Eyes: Denies blurry vision ENT HEENT: Denies abnormal hearing Cardiovascular Cardiovascular: Reports chest pain Respiratory/Chest Respiratory/Chest: Reports dyspnea on exertion; Denies cough Gastrointestinal Gastrointestinal: Reports abdominal pain; Denies change in bowel habits, coffee ground emesis, nausea or vomiting Genitourinary Genitourinary: Denies change in urinary stream or difficulty urinating Musculoskeletal Musculoskeletal: Denies abnormal gait Integumentary Integumentary: Denies jaundice or new lesions Neurologic Neurologic: Denies abnormal gait Psychiatric Psychiatric: Denies anxiety Vital Signs Vital Signs Vital Signs: 04/23/25 08:49 04/23/25 11:46 04/23/25 12:11 Temperature 99.0 F Temperature Source Oral Pulse Rate 86 70 78 Respiratory Rate 18 18 18 Blood Pressure 144/72 H 163/63 H 149/62 H Blood Pressure Mean 96 96 91 Blood Pressure Source Monitor Blood Pressure Position Semi-Fowlers Blood Pressure Location Right Arm Pulse Ox 96 97 97 Oxygen Delivery Method Room Air Room Air Room Air 04/23/25 12:13 04/23/25 12:20 Temperature 98.3 F 98.3 F Temperature Source Pulse Rate 77 77 Respiratory Rate 18 18 Blood Pressure 149/62 H 149/62 H Blood Pressure Mean 91 Blood Pressure Source Blood Pressure Position Blood Pressure Location Pulse Ox 96 96 Oxygen Delivery Method Weight Weight: 302 lb 11.115 oz Body Mass Index (BMI) 41.0 Physical Exam Const oriented x3 and no apparent distress Resp normal respiratory effort Cardio regular rate and regular rhythm GI soft to palpation Palpation: tender RLQ Extremity normal to inspection Results Lab / Micro Data 04/23/25 10:00 04/23/25 10:00 Labs: Laboratory Results - last 24 hr 04/23/25 10:00: WBC 11.2 H, RBC 4.46 L, Hgb 14.0, Hct 40.7, MCV 91.3, MCH 31.4, MCHC 34.4, RDW Std Deviation 41.7, RDW Coeff of Megan 12.6, Plt Count 157, MPV 10.7, Immature Gran % (Auto) 0.500, Neut %(Auto) 76.9 H, Lymph % (Auto) 10.4 L,[place]lin % (Auto) 10.4 H, Eos % (Auto) 1.6, Baso % (Auto) 0.2, Absolute Neuts (auto)8.6 H, Absolute Lymphs (auto) 1.17, Nucleated RBC % 0, Sodium 136, Potassium 4.2, Chloride 102, Carbon Dioxide 24.1, Anion Gap 10, BUN 7, Creatinine 0.82, Estim Creat Clear Calc 139.23, Est GFR (MDRD) Non-Af 101, BUN/Creatinine Ratio 8.7 L, Glucose 143 H, Calcium 9.1, Total Bilirubin 0.98, AST 20, ALT 25, Alkaline Phosphatase 52, Total Protein 7.0, Albumin 4.0, Globulin 3.0, Albumin/Globulin Ratio 1.3, Lipase 25 04/23/25 11:26: Urine Color Yellow, Urine Clarity Clear, Urine pH 7.0, Ur Specific Friendship 1.005, Urine Protein 15 H, Urine Glucose (UA) Normal, Urine Ketones Negative, Urine Occult Blood Negative, Urine Nitrite Negative, Urine Bilirubin Negative, Urine Urobilinogen Normal, Ur Leukocyte Esterase Negative, Urine RBC 0-5 SEEN, Urine WBC 0-5 SEEN, Ur Squamous Epith Cells 0 SEEN, Urine Bacteria 0 SEEN, Urine Mucus RARE Imaging Radiology Impression Abdomen/Pelvis CT 04/23/25 09:57 IMPRESSION: 1. Mild fatty liver. 2. Acute, uncomplicated appendicitis. Significant amount of inflammatory changes shown in the periappendiceal fat. 3. Diverticulosis without diverticulitis. 4. Small fat containing right inguinal hernia. Reading Location: [id number] Testicular Ultrasound 04/23/25 09:57 IMPRESSION: No evidence of testicular torsion. Small bilateral epididymal cysts. Small bilateral hydroceles. [facility] Assessment & Plan Assessment/Plan (1) Acute appendicitis: QUALIFIERS: Acute appendicitis type: unspecified acute appendicitis type Qualified Code(s): K35.80 - Unspecified acute appendicitis PLAN: The patient has right lower quadrant pain and he had a CT scan which showed acute appendicitis. I recommended laparoscopic appendectomy. I discussed the procedure with the patient in detail. I discussed the risks of the procedure such as bleeding, infection, injury to other organs like the bowel, bladder, ureter. I also discussed the increased risk of bleeding as the patient is on aspirin and Plavix. I also discussed the increased risk of heart attack or stroke as the patient has had 8 heart stents in the past and has chestpain at rest. The patient was in the emergency room last month with chest pain and was told that it did not sound like acute coronary syndrome. 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 Ace Renteria MD Pager: [facility] [address] [place] [address], [address] [place] [address] Office: 04/23/25 1246 Cosigner Signature (if applicable): CC: Dr. Ace Renteria MD; Dr. Shaniqua Harrington DO~ Signed [facility]10-13-2025 Consult note [facility] Medical Records Department [address] [place] [address] Pre-Anesthesia Evaluation 04/23/25 1220 MR#: [id number] Acct: [id number] Name: BOLA OLIVEROS Rep #:[id number] : 1965 59 From: Felice Baltazar MD PCP: Dr. Shaniqua Harrington, DO Status:RE G SDC Y Race: C Location: [place] [address] ASA Classification* ASA Classification ASA Classification: 3 and E Assessment & Plan Anesthesia* Anesthesia Assessment Anesthesia Assessment: Discussed sedation and/or anesthesia options, risks, benefits, and alternatives with patient/parents/legal guardian/POA. Questions invited. The patient/parents/legal guardian/POA seems to understand and agrees to proceedwith anesthesia plan. Reviewed the physical assessment, medical history, allergy history and patient home medications list prior to surgery/procedure/anesthetic and documented any changes. Performed airway and anesthesia risk assessments. Anesthesia Type Anesthesia Type: General Anesthesia Focused Assessment* Temperature: 98.3 F Pulse Rate: 77 Blood Pressure: 149/62 Respiratory Rate: 18 Pulse Ox: 96 Airway Assessment Mouth opens: >3 cm Mallampati Score: II Labs Anesthesia Preop lab: CBC WBC, (4.4-11.0) 11.2 K/mm3 H Today, 10:00 RBC, (4.6-6.2) 4.46 M/mm3 L Today, 10:00 Hgb, (13.0-16.5) 14.0 g/dL Today, 10:00 Hct, (40-54) 40.7 % Today, 10:00 Plt Count, (150-450) 157 K/mm3 Today, 10:00 CHEMISTRY Potassium, (3.3-5.1) 4.2 mmol/L Today, 10:00 Sodium, (133-145) 136 mmol/L Today, 10:00 Magnesium, (1.6-2.6) 2.0 mg/dL 02/02/24, 14:12 Phosphorus, (2.5-4.9) 3.2 mg/dL 24, 14:12 BUN, (4-19) 7 mg/dL Today, 10:00 Creatinine, (0.70-1.20) 0.82 mg/dL Today, 10:00 Glucose, (70-99) 143 mg/dL H Today, 10:00 COAG PT, (11.7-14.9) 13.3 SECONDS 01/14/24, 09:33 Pre-Assessment Diagnosis/Proposed Procedure Planned Operative Procedure(s): Laparoscopic appendectomy. Anesthesia History Anesthesia History - museum tour guide: Anesthesia History - museum tour guide Hx Hospitalization Any Problems With Anesthesia No 04/23/25 12:11 Cholinesterase deficiency You/Your Family Experience No 04/23/25 12:11 fever (hyperthermia) with Relationship Recent Exposure to Contagious Disease Does patient have nerve No 04/23/25 12:11 stimulator Patient instructed to have No 04/23/25 12:11 device shut off --Does patient have Pacemaker or ICD? When Was Last Pacemaker Check QUESTION #4 FULL TEXT: You/Your Family Experience fever (hyperthermia) with Anesthesia Last Oral Intake Last Oral intake: Last Oral Intake NPO since Meds taken in AM with sips of water? Meds patient instructed to take am of surgery PONV PONV - museum tour guide: PONV - museum tour guide Female HX of Motion Sickness HX of N/V After Surgery Non-Smoker Duration of Surgery greater than 60 minutes Number of Risk Factors PONV Score Height & Weight Height & Weight: Anesthesia: Height & Weight Height 6 ft 04/23/25 12:11 Weight: 137.3 kg 04/23/25 12:11 Body Mass Index (BMI) 41.0 04/23/25 12:11 Respiratory Assessment Respiratory Assessment - museum tour guide: Respiratory Tract Infection Hx - museum tour guide Hx Respiratory Tract Infection STOP Sleep Apnea STOP Sleep Apnea - museum tour guide: STOP Sleep Apnea - museum tour guide Hx Hypertension Yes 04/23/25 12:11 Hx Sleep Apnea Yes 04/23/25 12:11 CPAP No 04/23/25 12:11 BIPAP No 04/23/25 12:11 Do you snore loudly (louder than talking or can be heard Do you often feel tired/ fatigued/ sleepy during daytime? Has anyone observed you stop breathing during sleep? STOP Results Positive 04/23/25 12:11 QUESTION #5 FULL TEXT : Do you snore loudly (louder than talking or can be heard through closeddoors)? 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 Specify any problems Hx of Preganancy in last 3 Months Nurse Filling Out Transfusion & Questions: Date: Time: Patient unable to answer at this time (ie. confused, unrespo /Reproduction History /Reproductive History - museum tour guide: /Reproductive Hx- museum tour guide Hx Now No 04/23/25 12:11 Gestational Age (in weeks): EDC: Hx Hx Para Hx Section SAB No 04/23/25 12:11 Active Medications Active Medications: Current Medications Generic Name Dose Route Start Last Admin Trade Name Freq PRN Reason Stop Dose Admin Piperacillin Sod/Tazobactam 50 mls @ 100 mls/hr 04/23/25 11:55 04/23/25 12:09 Sod 3.375 gm/ Sodium Chloride IV 04/23/25 12:24 100 mls/hr X1 ONE Administration PFSH Medical History Dyspnea on exertion Nicotine dependence Obesity Coronary artery disease Vitamin D deficiency Appetite loss 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] Right hand pain SOB (shortness of breath) Fatigue Heartburn Syncope and collapse Pulmonary hypertension BMI 40.0-44.9, adult EtOH dependence Elevated liver function tests Anxiety Insomnia Tobacco dependence Sleep apnea Essential hypertension Chest pain Nocturnal hypoxemia COPD (chronic obstructive pulmonary disease) Home Medications ?Medication ?Instructions ?Recorded ?Last Taken ?Type trazodone 50 mg tablet 150 mg PO QHS PRN insomnia 0 02/08/23 04/22/25 History aspirin 81 mg tablet,delayed 81 mg PO DAILY heart heal th 02/16/23 04/23/25 History release losartan 50 mg tablet 50 mg PO DAILY blood pressur e 03/24/23 04/22/25 History nitroglycerin 0.4 mg sublingual 0.4 mg sublingual Q5M PRN 04/08/23 Unknown Rx tablet Cardiac/Chest Pain #15 tabs clopidogrel 75 mg tablet 75 mg PO DAILY antiplatelet #90 05/22/24 04/23/25 Rx tabs ranolazine 500 mg tablet,extended 500 mg PO BID HEART #60 tabs 11/10/24 04/23/25 Rx release,12 hr metoprolol tartrate 50 mg tablet 50 mg PO BID heart # 180 tabs 02/26/25 04/23/25 Rx atorvastatin 10 mg tablet 10 mg PO QHS cholesterol #90 tabs 04/03/25 04/22/25 Rx magnesium 250 mg tablet 250 mg PO DAILY SUPPLEMENT 1 04/22/25 History multivitamin (Daily Multi-Vitamin 1 tab PO DAILY SUPPL EMENT 04/23/25 04/22/25 History tablet) sertraline 50 mg tablet 50 mg PO DAILY MOOD 04/23/25 04/22/25 History Allergy/AdvReac Type Severity Reaction Status Date / Time No Known Allergies Allergy Verified 04/23/25 08:49 Family History Mother Diabetes Heart disease Sister Pulmonary hypertension Father Cancer stomach Heart disease Surgical History Stented coronary artery Hx of cardiac catheterization (~02/02/24) Hx of plastic surgery Social History household members: spouse Smoking Status: Current every day smoker tobacco type: cigarettes alcohol intake: current alcohol intake frequency: 3 or more drinks per day Alcohol type: beer details: 12 beer substance use type: does not use caffeine: No Review of Systems (Anesthesia) ROS Narrative System reviewed and no additional complaints, except as documented. 04/23/25 1221 > Date _ Felice Baltazar MD Cosigner Signature: Date CC: ~ Signed [facility]10-13-2025 Discharge summary [facility] Medical Records Department [address] [place] [address] Emergency Department Summary 04/23/25 MR#: [id number] Acct: [id number] Name: BOLA OLIVEROS Rep #:[id number] : 1965 59 From: Lloyd pierson DO PCP: Dr. Shaniqua Harrington DO Status:[facility] Location: [facility] AC-TB A-2 HPI History of Present Illness Chief Complaint: Abd Pain Narrative Narrative: Chief complaint and HPI: 59-year-old male with past medical history of CAD with PCI, HTN, HLD presents for evaluation of right lower quadrant abdominal pain. Onset of symptoms yesterday and radiates into his right testicle. Endorses constipation in which she has taken stool softeners with minimal relief. Endorses nausea. Has a history of constipation. Denies any fever, chills, shortness of breath, chest pain, vomiting, dysuria. No history of kidney stones. Review of systems: See HPI Medications: As listed on the chart Allergies: As listed on the chart PFSH: Per chart Vital signs: As listed on the chart. Reviewed. Physical exam: Gen: A&O x3, NAD Head: Normocephalic, atraumatic Eyes: No sclera icterus, conjunctiva clear ENT: Moist mucous membranes Neck: Trachea midline CV: RRR, no murmurs Resp: Lungs CTA BL, no w/r/c GI: Abd soft, non-distended, tender to palpation in the right lower quadrant andsuprapubic region, no rebound or rigidity : No CVA tenderness. Circumcised penis. No penile tenderness or discharge. Nopenile or testicularswelling. Normal lie and position of the testicles. Right testicle tender to palpation diffusely without masses or skin changes. Cremasteric reflexes intact and equal bilaterally. No rashes. No palpable hernias. Musc: Full ROM, no deformity Skin: Warm, dry Neuro: Alert, oriented, grossly intact, sensation intact Psych: Cooperative, appropriate mood and affect PFS PFS Medical History Dyspnea on exertion Nicotine dependence Obesity Coronary artery disease Vitamin D deficiency Appetite loss 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] Right hand pain SOB (shortness of breath) Fatigue Heartburn Syncope and collapse Pulmonary hypertension BMI 40.0-44.9, adult EtOH dependence Elevated liver function tests Anxiety Insomnia Tobacco dependence Sleep apnea Essential hypertension Chest pain Nocturnal hypoxemia COPD (chronic obstructive pulmonary disease) Home Medications ?Medication ?Instructions ?Recorded ?Last Taken ?Type trazodone 50 mg tablet 150 mg PO QHS PRN insomnia 0 02/08/23 04/22/25 History aspirin 81 mg tablet,delayed 81 mg PO DAILY heart heal th 02/16/23 04/23/25 History release losartan 50 mg tablet 50 mg PO DAILY blood pressur e 03/24/23 04/22/25 History nitroglycerin 0.4 mg sublingual 0.4 mg sublingual Q5M PRN 04/08/23 Unknown Rx tablet Cardiac/Chest Pain #15 tabs clopidogrel 75 mg tablet 75 mg PO DAILY antiplatelet #90 05/22/24 04/23/25 Rx tabs ranolazine 500 mg tablet,extended 500 mg PO BID HEART #60 tabs 11/10/24 04/23/25 Rx release,12 hr metoprolol tartrate 50 mg tablet 50 mg PO BID heart # 180 tabs 02/26/25 04/23/25 Rx atorvastatin 10 mg tablet 10 mg PO QHS cholesterol #90 tabs 04/03/25 04/22/25 Rx magnesium 250 mg tablet 250 mg PO DAILY SUPPLEMENT 1 04/22/25 History multivitamin (Daily Multi-Vitamin 1 tab PO DAILY SUPPL EMENT 04/23/25 04/22/25 History tablet) sertraline 50 mg tablet 50 mg PO DAILY MOOD 04/23/25 04/22/25 History Allergy/AdvReac Type Severity Reaction Status Date / Time No Known Allergies Allergy Verified 04/23/25 08:49 Family History Mother Diabetes Heart disease Sister Pulmonary hypertension Father Cancer stomach Heart disease Surgical History Stented coronary artery Hx of cardiac catheterization (~02/02/24) Hx of plastic surgery Social History (Updated 03/21/25 @ 16:28 by Chauncey Cerda) household members: spouse Smoking Status: Current every day smoker tobacco type: cigarettes alcohol intake: current alcohol intake frequency: 3 or more drinks per day Alcohol type: beer details: 12 beer substance use type: does not use caffeine: No EXAM Physical Exam Const Vital Signs: 04/23/25 08:49 04/23/25 11:46 Temperature 99.0 F Temperature Source Oral Pulse Rate 86 70 Respiratory Rate 18 18 Blood Pressure 144/72 H 163/63 H Blood Pressure Mean 96 96 Pulse Ox 96 97 Oxygen Delivery Method Room Air Room Air MDM MDM MDM Narrative Medical decision making narrative: 59-year-old male with past medical history of CAD with PCI, HTN, HLD presents for evaluation of right lower quadrant abdominal pain. Onset of symptoms yesterday and radiates into his right testicle. Endorses constipation and nausea. Differential diagnosis includes but is not limited to appendicitis, UTI, urolithiasis, epididymitis, gastroenteritis, constipation. NS bolus, morphine, Zofran orderedfor symptoms. Abdominal pain workup ordered including CT abdomen pelvis and testicular ultrasound. CBC with mild leukocytosis 11.2. No anemia. Platelets unremarkable. His CMP relatively unremarkable.Lipase unremarkable. UA negative for UTI. Testicular ultrasound negative for torsion. Small bilateral epididymal cyst and bilateral hydroceles. CT abdomen pelvis shows mild fatty liver. Acute uncomplicated appendicitis. Diverticulosis without diverticulitis. Small fat-containing right inguinal hernia. Patient's symptoms are likely secondary to acute appendicitis. Patient NPO. Zosyn ordered. Patient was updated of the results and the plan for surgery. He confirmed understanding. Patient was discussed with Dr. Zavala who will be taking the patient to the OR. Impression: 1. Acute appendicitis Lab Data Labs: Laboratory Results - last 24 hr 04/23/25 04/23/25 10:00 11:26 WBC 11.2 H RBC 4.46 L Hgb 14.0 Hct 40.7 MCV 91.3 MCH 31.4 MCHC 34.4 RDW Std Deviation 41.7 RDW Coeff of Megan 12.6 Plt Count 157 MPV 10.7 Immature Gran % (Auto) 0.500 Neut % (Auto) 76.9 H Lymph % (Auto) 10.4 L [place] % (Auto) 10.4 H Eos % (Auto) 1.6 Baso % (Auto) 0.2 Absolute Neuts (auto) 8.6 H Absolute Lymphs (auto) 1.17 Nucleated RBC % 0 Sodium 136 Potassium 4.2 Chloride 102 Carbon Dioxide 24.1 Anion Gap 10 BUN 7 Creatinine 0.82 Estim Creat Clear Calc 139.23 Est GFR (MDRD) Non-Af 101 BUN/Creatinine Ratio 8.7 L Glucose 143 H Calcium 9.1 Total Bilirubin 0.98 AST 20 ALT 25 Alkaline Phosphatase 52 Total Protein 7.0 Albumin 4.0 Globulin 3.0 Albumin/Globulin Ratio 1.3 Lipase 25 Urine Color Yellow Urine Clarity Clear Urine pH 7.0 Ur Specific Friendship 1.005 Urine Protein 15 H Urine Glucose (UA) Normal Urine Ketones Negative Urine Occult Blood Negative Urine Nitrite Negative Urine Bilirubin Negative Urine Urobilinogen Normal Ur Leukocyte Esterase Negative Urine RBC 0-5 SEEN Urine WBC 0-5 SEEN Ur Squamous Epith Cells 0 SEEN Urine Bacteria 0 SEEN Urine Mucus RARE Radiography Diagnostic Testing: Clinical Impression(s) from Imaging Studies Abdomen/Pelvis CT 04/23/25 09:57 IMPRESSION: 1. Mild fatty liver. 2. Acute, uncomplicated appendicitis. Significant amount of inflammatory changes shown in the periappendiceal fat. 3. Diverticulosis without diverticulitis. 4. Small fat containing right inguinal hernia. Reading Location: [facility] Testicular Ultrasound 04/23/25 09:57 IMPRESSION: No evidence of testicular torsion. Small bilateral epididymal cysts. Small bilateral hydroceles. Reading Location: [facility] Discharge Plan Triage Chief Complaint: Abd Pain ED Provider: Lloyd Gerard Dx/Rx/DC Orders Prescriptions: No Action trazodone 50 mg tablet 150 mg PO QHS PRN (Reason: insomnia) Patient Comments: take 3 tablet by mouth at bedtime if needed for sleep / insomnia aspirin 81 mg tablet,delayed release (DR/EC) 81 mg PO DAILY losartan 50 mg tablet 50 mg PO DAILY ranolazine 500 mg tablet extended release 12 hr 500 mg PO BID Qty: 60 11RF Patient Comments: PT STATES TAKES 1 TAB QAM nitroglycerin 0.4 mg Tablet, Sublingual 0.4 mg sublingual Q5M PRN (Reason: Cardiac/Chest Pain) Qty: 15 3RF sertraline 50 mg tablet 50 mg PO DAILY multivitamin [Daily Multi-Vitamin] Tablet 1 tab PO DAILY magnesium 250 mg tablet 250 mg PO DAILY clopidogrel 75 mg tablet 75 mg PO DAILY Qty: 90 3RF metoprolol tartrate 50 mg tablet 50 mg PO BID Qty: 180 2RF atorvastatin 10 mg tablet 10 mg PO QHS Qty: 90 3RF Primary Care Provider: Shaniqua Harrington Referrals: Gunjan Jimenez NP-C [Med Staff - Adv Practice Prof, Internal Medicine] Print Language: Tunisian What to do if you have Problems For any increased pain, shortness of breath, bleeding, nausea or vomiting, chestpain, or any unexpected problems, contact your Primary Care Provider. Call [facility] ([phone]) or report tothe closest Emergency Room. Call 911 if necessary. 04/23/25 1214 Cosigner Signature (if applicable): CC: Dr. Shaniqua Harrington DO ~ Signed [facility]10-13-2025 Radiology Diagnostic study note [facility] Imaging Services [address] [place], [place] [id number] Abdomen/Pelvis W IV Cont ONLY MR#: [id number] Acct: [id number] Name: BOLA OLIVEROS Rep #: [id number] : 1965 M 59 From: Jamila Ortiz MD PCP: Dr. Shaniqua Harrington DO Status: RE G ER Study:Abdomen/Pelvis W IV Cont ONLY Date of E xam: 04/23/25 Exam# [id number] Ordering Dr: Lloyd Valdez DO PROCEDURE: ABDOMEN/PELVIS W IV CONT ONLY 04/23/2025 REASON FOR EXAM: RIGHT LOWER QUADRANT ABDOMINAL PAIN TECHNIQUE: Procedure Code: CTABDPELIV Modality: CT Procedure: ABDOMEN/PELVIS W IV CONT ONLY Coronal and Sagittal reconstruction series were provided. CONTRAST: Isovue-300 VOLUME: 100 mL One or more dose reduction techniques were used (e.g., Automated exposure control, adjustment of the mA and/or kV according to patient size, use of iterative reconstruction technique. RADIATION DOSE SUMMARY: CTDlvol: 82 mGy DLP: 2525 mGycm COMPARISON: None FINDINGS: Lung bases: Mild dependent atelectasis. Coronary artery atherosclerosis. Liver: Mild fatty liver. Gallbladder: Normal Spleen: Normal Pancreas: Normal Adrenals: Normal Kidneys: Sub 5 mm cyst in the right mid to upper pole and right lower pole. No collecting system dilation, calculus or solid mass. Bladder: Normal Reproductive Organs: Normal Bowel: Small sliding hiatus hernia. Small bowel is normal. Numerous colonic diverticula are seen without diverticulitis. Appendix: There is significant stranding in the periappendiceal soft tissues. No phlegmon or abscess seen. A few reactive lymph nodes are seen in the ileocolic region. Lymph nodes: None appear enlarged. Vasculature: Severe atherosclerosis without aneurysm. Peritoneum / Retroperitoneum: No free air, free fluid or mass. Bones: Sclerotic focus in the L5 vertebral body on the right is likely a bone island. Small fat containing right inguinal hernia. CT/Abdomen/Pelvis W IV Cont ONLY IMPRESSION: 1. Mild fatty liver. 2. Acute, uncomplicated appendicitis. Significant amount of inflammatory changes shown in the periappendiceal fat. 3. Diverticulosis without diverticulitis. 4. Small fat containing right inguinal hernia. Reading Location: [id number] CC: Dr. Lloyd Gerard DO; Dr. Shaniqua Harrington DO ~ Lean Manufacturing Leader: Signed [facility]10-13-2025 Radiology Diagnostic study note [facility] Imaging Services [address] [place], [place] [address] Testicular with Arterial Flow MR#: [id number] Acct: [id number] Name: BOLA OLIVEROS Rep #: [id number] : 1965 M 59 From: Kamaljit Almaguer MD PCP: Dr. Shaniqua Harrington DO Status: RE G ER Study:Testicular with Arterial Flow Date of E xam: 04/23/25 Exam# [id number] Ordering Dr: Lloyd Valdez DO PROCEDURE: TESTICULAR WITH ARTERIAL FLOW 04/23/2025 REASON FOR EXAM: RIGHT TESTICLE PAIN TECHNIQUE: Procedure Code: USTES Modality: US Procedure: TESTICULAR WITH ARTERIAL FLOW COMPARISON: None FINDINGS: RIGHT testicle: 4 cm x 2.9 cm x 2.3 cm It is of heterogeneous echotexture. Right epididymis: 0.7 cm 1.2 cm 1.1 cm. There is a epididymal cyst measuring 5 mm x 4 mm x 3 mm. LEFT testicle: 4.2 cm x 2.8 cm x 2 cm Homogeneous echotexture of the testicle. Left epididymis: 1.1 cm 1.5 cm 0.8 cm. There is a 0.4 cm 0.4 cm x 0.3 cm epididymal cyst. Other findings: Small bilateral hydroceles. US/Testicular with Arterial Flow IMPRESSION: No evidence of testicular torsion. Small bilateral epididymal cysts. Small bilateral hydroceles. Reading Location: [facility] [place] CC: Dr. Lloyd Gerard DO; Dr. Shaniqua Harrington DO ~ Lean Manufacturing Leader: Signed [facility]09-10-2025 Radiology Diagnostic study note [facility] Imaging Services [address] [place], [place] [id number] Chest 1 View (Portable) MR#: [id number] Acct: [id number] Name: BOLA OLIVEROS Rep #: [id number] : 1965 M 59 From: Scott Gonsalez MD PCP: RISSA Pablo Status: REG E R Study:Chest 1 View (Portable) Date of Exam: 03/21/25 Exam# [id number] Ordering Dr: Maria C Villafana DO PROCEDURE: CHEST 1 VIEW (PORTABLE) 03/21/2025 REASON FOR EXAM: CHEST PAIN TECHNIQUE: Frontal view of the chest. COMPARISON: None. FINDINGS: Lungs/Pleura: Clear. No focal airspace consolidation, pneumothorax, or sizable pleural effusion. Mild central pulmonary vascular congestion. Heart/Mediastinum: Mildly enlarged, although likely exaggerated by technique. Bones/Soft tissues: No significant abnormality. RAD/Chest 1 View (Portable) IMPRESSION: Mild cardiomegaly with vascular congestion. No appreciable airspace consolidation or pleural effusion. Reading Location: [id number] CC: COMMUN[facility] HE[facility] NURSE-C Gunjan Jimenez; Dr. Kanu Villafana DO ~ Lean Manufacturing Leader: Signed [facility]02-12-2025 Hospital Discharge instructions Patient Education 08/23/2024 10:26:25 Influenza (Adult) Influenza (Adult) Influenza is also called the flu. It is a viral illness that affects the air passages of your lungs. It is different from the common cold. The flu can easily be passed from one to person to another. It may be spread through the air by coughing and sneezing. Or it can be spread by touching the sick person and then touching your own eyes, nose, or mouth. The flu starts 1 to 3 days after you are exposed to the flu virus. It may last for 1 to 2 weeks butmany people feel tired or fatigued for many weeks afterward. You usually don t need to take antibiotics unless you have a complication. This might be an ear or sinus infection or pneumonia. Symptoms of the flu may be mild or severe. They can include extreme tiredness (wanting to stay in bed all day), chills, fevers, muscle aches, soreness with eye movement, headache, and a dry, hacking cough. Home care Follow these guidelines when caring for yourself at home: Avoid being around cigarette smoke, whether yours or other people s. Acetaminophen or ibuprofen will help ease your fever, muscle aches, and headache. Don t give aspirin to anyone younger than 18 who has the flu. Aspirin can harm the liver. Nausea and loss of appetite are common with the flu. Eat light meals. Drink 6 to 8 glasses of liquids every day. Good choices are water, sport drinks, soft drinks without caffeine, juices, tea, and soup. Extra fluids will also help loosen secretions in your nose and lungs. Pmdc-wbl-utzhmwn cold medicines will not make the flu go away faster. But the medicines may help with coughing, sore throat, and congestion in your nose and sinuses. Don t use a decongestant if you have high blood pressure. Stay home until your fever has been gone for at least 24 hours without using medicine to reduce fever. Follow-up care Follow up with your healthcare provider, or as advised, if you are not getting better over the nextweek. If you are age 65 or older, talk with your provider about getting a pneumococcal vaccine every 5 years. You should also get this vaccine if you have chronic asthma or COPD. All adults should get a flu vaccine every fall. Ask your provider about this. When to seek medical advice Call your healthcare provider right away if any of these occur: Cough with lots of colored mucus (sputum) or blood in your mucus Chest pain, shortness of breath, wheezing, or trouble breathing Severe headache, or face, neck, or ear pain New rash with fever Fever of 100.4 F (38 C) or higher, or as directed by your healthcare provider Confusion, behavior change, or seizure Severe weakness or dizziness You get a new fever or cough after getting better for a few days [id number] [employer]. [address] [place] [address]83. All rights reserved. This information is not intended as a substitute for professional medical care. Always follow yourhealthcare professional's instructions. Follow Up Care 08/23/2024 07:07:26 With:GUNJAN JIMENEZ Address: [address] [place] [address] [phone] When:2-4 days [facility] 02-12-2025 Note Discharge Instructions Thank you for allowing [facility] to assist you with your healthcare needs. The following is importantdischarge information regarding your hospital visit. Diagnosis from Today's Visit COPD exacerbation Influenza A What to Do Next Instructions from Your Care Team No qualifying data available. Post Acute Orders No qualifying data available. You Need to Schedule the Following Appointments Follow Up with GUNJAN JIMENEZ When:Within 2-4 days Where:[address] [place] [address] [phone] Allergies NKA Medications Please ask your primary doctor or pharmacist before taking any other medication not listed, including over the counter drugs, herbal medications, vitamins and or supplements as they may interact withyour home medications. What How Much When Why Instructions Last Dose New azithromycin (Zithromax Z-Yared 250 mg oral tablet) Take two (2) tablets day 1-then one (1) tablet by mouth Every day Duration: 5 Days Printed Prescription New homatropine-hydrocodone (homatropine-hydrocodone 1.5 mg-5 mg/ 5 mL oral syrup) 5 Milliliter by mouth Every 4 hours as needed for as needed for cough Influenza A Duration: 3 Days Printed Prescription New oseltamivir (Tamiflu 75 mg oral capsule) 1 cap by mouth Two (2) times a day Duration: 5 Days Printed Prescription Unchanged acetaminophen-hydrocodone (Menahga 325- 5 mg oral tablet) 1 tab(s) by mouth Every 6 hours as needed for as needed for pain Leg pain Duration: 3 Days Unchanged acetaminophen-hydrocodone (Menahga 325- 5 mg oral tablet) 1 tab(s) [...] medication providers or retail pharmacies. Medication Leaflets oseltamivir (os el WOODRUFF ih veer) Tamiflu What is the most important information I should know about oseltamivir? Some people using oseltamivir have had sudden unusual changes in mood or behavior, most often in children. It is not certain that oseltamivir is the exact cause. Even without using oseltamivir, anyone with influenza can have neurologic or behavioral effects that may lead to confusion or hallucinations. Call your doctor right away if the person using this medicine has any signs of unusual thoughtsor behavior. What is oseltamivir? Oseltamivir is an antiviral medication that blocks the actions of influenza virus types A and B in your body. Oseltamivir is used to treat flu symptoms caused by influenza virus in people who have had symptomsfor less than 2 days. Oseltamivir may also be given to prevent influenza in people who may be exposed but do not yet have symptoms. Oseltamivir will not treat the common cold. Oseltamivir should not be used in place of getting a yearly flu shot. The Centers for Disease Control recommends an annual flu shot to help protect you each year from new strains of influenza virus. Oseltamivir may also be used for purposes not listed in this medication guide. What should I discuss with my healthcare provider before using oseltamivir? You should not use oseltamivir if you are allergic to it. Do not use oseltamivir to treat flu symptoms in a child younger than 2 weeks old. Children as youngas 1 year old may use zanamivir to prevent flu symptoms. Tell your doctor if you have ever had: kidney disease (or if you are on dialysis); heart disease or chronic lung disease; a condition causing swelling or disorder of the brain; a weak immune system (caused by disease or by using certain medicine); hereditary fructose intolerance; or if you have used a nasal flu vaccine (FluMist) within the past 2 weeks. It is not known whether this medicine will harm an unborn baby. However, getting sick with influenza during can cause complications leading to defects, low weight, delivery, or stillbirth. Your doctor will decide whether you should receive oseltamivir if you are . The Centers for Disease Control and Prevention (CDC) recommends that women may receive a yearly flu vaccine to prevent influenza. Oseltamivir is not to be used in place of the yearly flu shot. It may not be safe to breast-feed while using this medicine. Ask your doctor about any risk. How should I take oseltamivir? Follow all directions on your prescription label and read all medication guides or instruction sheets. Use the medicine exactly as directed. Start taking oseltamivir as soon as possible after flu symptoms appear, such as fever, chills, muscle aches, sore throat, and runny or stuffy nose. Take the oseltamivir capsule with a full glass of water. Shake the oral suspension (liquid) before you measure a dose. Use the dosing syringe provided, or use a medicine dose-measuring device (not a kitchen spoon). Oseltamivir may be taken with food if it upsets your stomach. To treat flu symptoms: Take oseltamivir every 12 hours for 5 days. To prevent flu symptoms: Take oseltamivir every 24 hours for 10 days or as prescribed. Follow your doctor's instructions. Read and carefully follow any Instructions for Use provided with your medicine. Ask your doctor or pharmacist if you do not understand these instructions. Use this medicine for the full prescribed length of time, even if your symptoms quickly improve. Tell your doctor if your symptoms do not improve, or if they get worse. Store oseltamivir capsules at room temperature away from moisture and heat. Store oseltamivir liquid in the refrigerator but do not freeze. Throw away any unused liquid after 17 days. The liquid may also be stored at cool room temperature for up to 10 days What happens if I miss a dose? Use the medicine as soon as you can, but skip the missed dose if your next dose is due in less than2 hours. Do not use two doses at one time. What happens if I overdose? Seek emergency medical attention or call the Poison Help line at . What should I avoid while taking oseltamivir? Do not use a nasal flu vaccine (FluMist) within 48 hours after taking oseltamivir. Oseltamivir may interfere with the drug action of FluMist, making the vaccine less effective. Follow your doctor's instructions. What are the possible side effects of oseltamivir? Get emergency medical help if you have signs of an allergic reaction (hives, difficult breathing, swelling in your face or throat) or a severe skin reaction (fever, sore throat, burning eyes, skin pain, red or purple skin rash with blistering and peeling). Some people using oseltamivir (especially children) have had sudden unusual changes in mood or behavior. It is not certain that oseltamivir is the exact cause of these symptoms. Even without using oseltamivir, anyone with influenza can have neurologic or behavioral symptoms. Call your doctor right away if the person using this medicine has: sudden confusion; tremors or shaking; unusual behavior; or hallucinations (hearing or seeing things that are not there). Common side effects may include: nausea, vomiting; headache; or pain. This is not a complete list of side effects and others may occur. Call your doctor for medical advice about side effects. You may report side effects to FDA at 4-564-REA-7519. What other drugs will affect oseltamivir? Other drugs may affect oseltamivir, including prescription and grws-ovj-qqzqaen medicines, vitamins, and herbal products. Tell your doctor about all your current medicines and any medicine you start or stop using. Where can I get more information? Your pharmacist can provide more information about oseltamivir. Remember, keep this and all other medicines out of the reach of children, never share your medicines with others, and use this medication only for the indication prescribed. Every effort has been made to ensure that the information provided by [employer] ('[employer] is accurate, up-to-date, and complete, but no guarantee is made to that effect. Drug information contained herein may be time sensitive. [employer] information has been compiled for use by healthcare practitioners and consumers in the [place] and therefore [employer] does not warrant that uses outside of the [place] are appropriate, unless specifically indicated otherwise. [employer] drug information does not endorse drugs, diagnose patients or recommend therapy. [employer] drug information isan informational resource designed to assist licensed healthcare practitioners in caring for their p atients and/or to serve consumers viewing this service as a supplement to, and not a substitute for, the expertise, skill, knowledge and judgment of healthcare practitioners. The absence of a warningfor a given drug or drug combination in no way should be construed to indicate that the drug or drug combination is safe, effective or appropriate for any given patient. [employer] does not assume any responsibility for any aspect of healthcare administered with the aid of information [employer] provides. The information contained herein is not intended to cover all possible uses, directions, precautions, warnings, drug interactions, allergic reactions, or adverse effects. If you have questions about the drugs you are taking, check with your doctor, nurse or pharmacist. Copyright 2164-0616 [employer] Version: 12. Revision Date: 04/05/2018. azithromycin (oral/injection) (juan david lovell) Azithromycin 3 Day Dose Pack, Azithromycin 5 Day Dose Pack, Zithromax, Zithromax IV, Zithromax TRI-YARED, Zithromax Z-Yared What is the most important information I should know about azithromycin? You should not use azithromycin if you have ever had an allergic reaction, jaundice, or liver problems while taking this medicine. You should not use azithromycin if you have ever had a severe allergic reaction to similar drugs such as clarithromycin, erythromycin, or telithromycin. What is azithromycin? Azithromycin is used to treat many different types of infections caused by bacteria, including infections of the lungs, sinus, throat, tonsils, skin, urinary tract, cervix, or genitals. Azithromycin may also be used for purposes not listed in this medication guide. What should I discuss with my healthcare provider before using azithromycin? You should not use azithromycin if you are allergic to it, or if you have ever had: jaundice or liver problems caused by taking azithromycin; or a severe allergic reaction to similar drugs such as clarithromycin, erythromycin, or telithromycin. Azithromycin oral should not be used to treat pneumonia in people who have: cystic fibrosis; an infection after being in a hospital; an infection in the blood; a weak immune system (caused by diseases such as HIV/AIDS or cancer); or in older adults and those who are ill or debilitated. Tell your doctor if you have ever had: pneumonia; liver or kidney disease; myasthenia gravis; low levels of potassium in your blood; a heart rhythm disorder; or long QT syndrome (in you or a family member). It is not known whether this medicine is effective in treating genital ulcers in women. Tell your doctor if you are or . Taking azithromycin while may cause diarrhea, vomiting, or rash in the nursing baby. Azithromycin is not approved for use by anyone younger than 6 months old. Azithromycin should not be used to treat a throat or tonsil infection in a child younger than 2 years old. How should I take azithromycin? Follow all directions on your prescription label and read all medication guides or instruction sheets. Use the medicine exactly as directed. Azithromycin oral is taken by mouth. Azithromycin injection is given as an infusion into a vein, usually for 2 days before you switch to azithromycin oral. A healthcare provider will give you this injection. You may take azithromycin oral with or without food. Shake the oral suspension (liquid) before you measure a dose. Use the dosing syringe provided, or use a medicine dose-measuring device (not a kitchen spoon). Use this medicine for the full prescribed length of time, even if your symptoms quickly improve. Skipping doses can increase your risk of infection that is resistant to medication. Azithromycin will not treat a viral infection such as the flu or a common cold. Store at room temperature away from moisture and heat. Throw away any unused liquid medicine after 10 days. What happens if I miss a dose? Take the medicine as soon as you can, but skip the missed dose if it is almost time for your next dose. Do not take two doses at one time. What happens if I overdose? Seek emergency medical attention or call the Poison Help line at . What should I avoid while taking azithromycin? Antibiotic medicines can cause diarrhea, which may be a sign of a new infection. If you have diarrhea that is watery or bloody, call your doctor before using anti-diarrhea medicine. Azithromycin could make you sunburn more easily. Avoid sunlight or tanning beds. Wear protective clothing and use sunscreen (SPF 30 or higher) when you are outdoors. What are the possible side effects of azithromycin? Get emergency medical help if you have signs of an allergic reaction (hives, difficult breathing, swelling in your face or throat) or a severe skin reaction (fever, sore throat, burning in your eyes,skin pain, red or purple skin rash that spreads and causes blistering and peeling). Seek medical treatment if you have a serious drug reaction that can affect many parts of your body.Symptoms may include: skin rash, fever, swollen glands, muscle aches, severe weakness, unusual bruising, or yellowing of your skin or eyes. Call your doctor at once if you have: severe stomach pain, diarrhea that is watery or bloody; fast or pounding heartbeats, fluttering in your chest, shortness of breath, and sudden dizziness (like you might pass out); or liver problems--nausea, vomiting, loss of appetite, stomach pain (upper right side), tiredness, itching, dark urine, zeus-colored stools, jaundice (yellowing of the skin or eyes); Call your doctor right away if a baby taking azithromycin becomes irritable or vomits while eating or nursing. Older adults may be more likely to have side effects on heart rhythm, including a life-threatening fast heart rate. Common side effects may include: nausea, vomiting; or stomach pain. This is not a complete list of side effects and others may occur. Call your doctor for medical advice about side effects. You may report side effects to FDA at 5-405-LWC-5870. What other drugs will affect azithromycin? Tell your doctor about all your other medicines, especially: colchicine; digoxin; nelfinavir; phenytoin; an antacid that contains aluminum or magnesium--Acid Gone, Gaviscon, Gelusil, Maalox, Milk of Magnesia, Mylanta, Pepcid Complete, Rolaids, Rulox, and others; or a blood thinner--warfarin, Coumadin, Jantoven. This list is not complete. Other drugs may affect azithromycin, including prescription and mmni-yrf-jwakarp medicines, vitamins, and herbal products. Not all possible drug interactions are listed here. Where can I get more information? Your pharmacist can provide more information about azithromycin. Remember, keep this and all other medicines out of the reach of children, never share your medicines with others, and use this medication only for the indication prescribed. Every effort has been made to ensure that the information provided by [employer]') is accurate, up-to-date, and complete, but no guarantee is made to that effect. Drug information contained herein may be time sensitive. [employer] information has been compiled for use by healthcare practitioners and consumers in the [place] and therefore [employer] does not warrant that uses outside of the [place] are appropriate, unless specifically indicated otherwise. [employer] drug information does not endorse drugs, diagnose patients or recommend therapy. [employer] drug information isan informational resource designed to assist licensed healthcare practitioners in caring for their p atients and/or to serve consumers viewing this service as a supplement to, and not a substitute for, the expertise, skill, knowledge and judgment of healthcare practitioners. The absence of a warningfor a given drug or drug combination in no way should be construed to indicate that the drug or drug combination is safe, effective or appropriate for any given patient. [employer] does not assume any responsibility for any aspect of healthcare administered with the aid of information [employer] provides. The information contained herein is not intended to cover all possible uses, directions, precautions, warnings, drug interactions, allergic reactions, or adverse effects. If you have questions about the drugs you are taking, check with your doctor, nurse or pharmacist. Copyright 1766-2911 [employer] Version: 18.01. Revision Date: 11/10/2018. homatropine and hydrocodone (ORTIZ a TROE peen and ERIK sabino KOE done) Jacklyn Rashid What is the most important information I should know about homatropine and hydrocodone? MISUSE OF THIS MEDICINE CAN CAUSE ADDICTION, OVERDOSE, OR . Keep the medication in a place where others cannot get to it. Fatal side effects can occur if you use this medicine with alcohol, or with other drugs that cause drowsiness or slow your breathing. What is homatropine and hydrocodone? Homatropine and hydrocodone is a combination medicine used to treat runny or stuffy nose, sneezing,cough, and sinus congestion caused by allergies or the common cold. Homatropine and hydrocodone contains an opioid cough medicine and may be habit-forming. Homatropine and hydrocodone may also be used for purposes not listed in this medication guide. What should I discuss with my healthcare provider before taking homatropine and hydrocodone? You should not use this medicine if you are allergic to homatropine or hydrocodone, or if you have: severe asthma or breathing problems; a stomach or bowel obstruction (including paralytic ileus); severe or uncontrolled high blood pressure; severe coronary artery disease (clogged arteries); narrow-angle glaucoma; or if you are unable to urinate. Do not give this medicine to anyone younger than 6 years old. Do not use this medicine if you have used an MAO inhibitor in the past 14 days, such as isocarboxazid, linezolid, methylene blue injection, phenelzine, rasagiline, selegiline, or tranylcypromine. Tell your doctor if you have ever had: lung disease or breathing problems; a head injury, brain tumor, or seizure; constipation, a bowel obstruction, or stomach problems; problems with your bile duct, pancreas, or adrenal gland; an enlarged prostate; urination problems; liver or kidney disease; low blood pressure; heart disease, a blood vessel disorder; a drug addiction; or if you have a fever and cough with mucus. If you use opioid medicine while you [...] the nursing baby. How should I take homatropine and hydrocodone? Follow the directions on your prescription label and read all medication guides. Never use this medicine in larger amounts, or for longer than prescribed. Cold or cough medicine is only for short-term use until your symptoms clear up. Never share this medicine with another person, [...] medicine dose-measuring device (not a kitchen spoon). Rinse after each use. Call your doctor if your symptoms do not improve after 5 days, or if you have a fever, rash, or headaches. If you need surgery or medical tests, tell the surgeon or doctor ahead of time if you have taken a cough or cold medicine within the past few days. Store at room temperature away from moisture and heat. Do not freeze. Do not keep leftover medication. Just one dose can cause in someone using this medicine accidentally or improperly. Read and carefully follow the instructions provided with this medicine about how to safely dispose of any unused portion. What happens if I miss a dose? Since this medicine is used when needed, you may not be on a dosing schedule. Skip any missed dose if it's almost time for your next dose. Do not use two doses at one time. What happens if I overdose? Seek emergency medical attention or call the Poison Help line at . An opioid overdosecan be fatal, especially in a child or other person using the medicine without a prescription. Overdose symptoms may include severe drowsiness, pinpoint pupils, slow breathing, or [...] health department. Make sure any person caring foryou knows where you keep naloxone and how to use it. What should I avoid while taking homatropine and hydrocodone? Do not drink alcohol. Dangerous side effects or could occur. Avoid driving or operating machinery until you know how this medicine will affect you. Dizziness orsevere drowsiness can cause falls or other accidents. What are the possible side effects of homatropine and hydrocodone? Get emergency medical help if you have signs of an allergic reaction: hives; difficult breathing; swelling of your face, lips, tongue, or throat. Opioid medicine can slow or stop your breathing, and may occur. A person caring for you should give naloxone and/or seek emergency medical attention if you have slow breathing with long pauses,blue colored lips, or if you are hard to wake up. Stop taking this medicine and call your doctor at once if you have: noisy breathing, sighing, shallow breathing; extreme drowsiness, confusion, feeling weak or limp; a seizure; a light-headed feeling, like you might pass out; severe constipation, stomach pain; little or no urination; adrenal gland problems--nausea, vomiting, loss of appetite, dizziness, worsening tiredness or weakness; or high levels of serotonin in the body--agitation, hallucinations, fever, sweating, shivering, fast heart rate, muscle stiffness, twitching, loss of coordination, nausea, vomiting, diarrhea. Serious breathing problems may be more likely in older adults and in those who are debilitated or have wasting syndrome or chronic breathing disorders. Common side effects may include: drowsiness, dizziness; lack of energy, coordination problems; headache, confusion; dry mouth, nausea, vomiting, constipation; tremors, fast or irregular heart rate; or feeling anxious, restless, nervous, or irritable. This is not a complete list of side effects and others may occur. Call your doctor for medical advice about side effects. You may report side effects to FDA at 3-227-JJU-8103. What other drugs will affect homatropine and hydrocodone? You may have breathing problems [...] is not complete. Other drugs may affect homatropine and hydrocodone, including prescription and gbms-uvu-ylarmwy medicines, vitamins, and herbal products. Not all possible interactions are listed here. Where can I get more information? Your pharmacist can provide more information about homatropine and hydrocodone. Remember, keep this and all other medicines out of the reach of children, never share your medicines with others, and use this medication only for the indication prescribed. Every effort has been made to ensure that the information provided by [employer]') is accurate, up-to-date, and complete, but no guarantee is made to that effect. Drug information contained herein may be time sensitive. [employer] information has been compiled for use by healthcare practitioners and consumers in the [place] and therefore [employer] does not warrant that uses outside of the [place] are appropriate, unless specifically indicated otherwise. [employer] drug information does not endorse drugs, diagnose patients or recommend therapy. [employer] drug information isan informational resource designed to assist licensed healthcare practitioners in caring for their p atients and/or to serve consumers viewing this service as a supplement to, and not a substitute for, the expertise, skill, knowledge and judgment of healthcare practitioners. The absence of a warningfor a given drug or drug combination in no way should be construed to indicate that the drug or drug combination is safe, effective or appropriate for any given patient. [facility] does not assume any responsibility for any aspect of healthcare administered with the aid of information [facility] provides. The information contained herein is not intended to cover all possible uses, directions, precautions, warnings, drug interactions, allergic reactions, or adverse effects. If you have questions about the drugs you are taking, check with your doctor, nurse or pharmacist. Copyright [facility]. Version: 8.01. Revision Date: 02/22/2023. Education [employer] Influenza (Adult) Influenza is also called the flu. It is a viral illness that affects the air passages of your lungs. It is different from the common cold. The flu can easily be passed from one to person to another. It may be spread through the air by coughing and sneezing. Or it can be spread by touching the sick person and then touching your own eyes, nose, or mouth. The flu starts 1 to 3 days after you are exposed to the flu virus. It may last for 1 to 2 weeks butmany people feel tired or fatigued for many weeks afterward. You usually don t need to take antibiotics unless you have a complication. This might be an ear or sinus infection or pneumonia. Symptoms of the flu may be mild or severe. They can include extreme tiredness (wanting to stay in bed all day), chills, fevers, muscle aches, soreness with eye movement, headache, and a dry, hacking cough. Home care Follow these guidelines when caring for yourself at home: Avoid being around cigarette smoke, whether yours or other people s. Acetaminophen or ibuprofen will help ease your fever, muscle aches, and headache. Don t give aspirin to anyone younger than 18 who has the flu. Aspirin can harm the liver. Nausea and loss of appetite are common with the flu. Eat light meals. Drink 6 to 8 glasses of liquids every day. Good choices are water, sport drinks, soft drinks without caffeine, juices, tea, and soup. Extra fluids will also help loosen secretions in your nose and lungs. Uins-hry-mflemmb cold medicines will not make the flu go away faster. But the medicines may help with coughing, sore throat, and congestion in your nose and sinuses. Don t use a decongestant if you have high blood pressure. Stay home until your fever has been gone for at least 24 hours without using medicine to reduce fever. Follow-up care Follow up with your healthcare provider, or as advised, if you are not getting better over the nextweek. If you are age 65 or older, talk with your provider about getting a pneumococcal vaccine every 5 years. You should also get this vaccine if you have chronic asthma or COPD. All adults should get a flu vaccine every fall. Ask your provider about this. When to seek medical advice Call your healthcare provider right away if any of these occur: Cough with lots of colored mucus (sputum) or blood in your mucus Chest pain, shortness of breath, wheezing, or trouble breathing Severe headache, or face, neck, or ear pain New rash with fever Fever of 100.4 F (38 C) or higher, or as directed by your healthcare provider Confusion, behavior change, or seizure Severe weakness or dizziness You get a new fever or cough after getting better for a few days 7408-0904 [employer]. [address] [place] [address]. All rights reserved. This information is not intended as a substitute for professional medical care. Always follow yourhealthcare professional's instructions. Additional Information VACCINATE! IT SAVES LIVES! Members of the community who have not yet received the COVID-19 vaccine and would like to receive it can visit one of [facility] vaccine clinics. There are many vaccine clinic locations within the [facility]. For locations and available times, please visit [email or web address] It is important to note that some COVID mobile vaccine clinics are held outdoors and may be canceled in rainy or stormy conditions. To learn more about pediatric vaccinations (ages 5-11), we invite you to visit the [facility] webpage. [email or web address]/pages/[email or web address]-Ebkgstfxpq-Enkrz-Bxx stions.htmlTo learn more about the COVID-19 vaccine, we invite you to visit the CDC website for a list of frequently asked questions. https://www.cdc.gov/coronavirus/2019-ncov/vaccines/faq.html [facility] Patient Portal Access Instructions: Stay connected with your healthcare team and access your personal medical information anytime with the [facility] Patient Portal. If you would like a full copy of your medical records please contact the [facility] Medical Records Department Wednesday through Wednesday between 8a.m. and 4:30p.m. Please follow the directions below to access the portal: 1.Access the email account you provided upon registration to the [facility].2.Look for an invitation email from [facility].3.Open the email and access the invitation link: Accept Invitation to [facility]4.Fill in the required greenberg to create your account. Sign into [email or web address] with your username and password that you [...] you will allow to register on the [facility] Patient Portal for access to your information. You can also access the [facility] Patient Portal on the Litesprite. Simply click on Health Records under Risktail and then click on the [facility] logo. HOW TO SAFELY DISPOSE OF PRESCRIPTION MEDICATIONS Please use one of the following methods to safely dispose of your unused medications. 1.Use a drug disposal kit: the drug disposal pouch allows you to safely discard your old and unuseddrugs. Ask your nurse to give you one when you are discharged.2.Visit a local take-back location: Many local pharmacies and police departments have programs that collect old and unwanted prescriptiondrugs. Call your local pharmacy or go to http://admetricks.Hukkster/0T7Hw9v to find one close to you.3.Make use of household items: Use cat litter or old coffee grounds to dispose medications if other options arenot available. Mix your drugs with these household products, seal them in an airtight container andthrow it into the garbage. Call [facility]: [phone] to be sure your drugs can be [...] drowsiness, such as benzodiazepines, also known as benzos,including diazepam and alprazolam, muscle relaxants or sleep aids. Never sell or share prescriptionopioids. This is illegal. Store opioids in a secure place and out of reach of others (including children, family, friends and visitors). The last page(s) of this document has been signed and retained as a CHART COPY Signatures Patient Education Materials Influenza (Adult) Medication Leaflets oseltamivir, azithromycin (oral/injection), homatropine and hydrocodone My discharge plan and instructions have been reviewed and explained to me and I,BOLA OILVEROS understand my current condition and have read and understand these discharge instructions. I have received a written copy of the plan/instructions. If I have questions, I am aware that I should contact my doctor. 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 [id number] Note* Exam Date Time Procedure Performing Provider Status 08/23/24 9:[address] Thorax w/o Contrast CHAPINCITO HORTA DO; Auth (Verified) [id number] ORIGINAL EXAMINATION: CT OF THE CHEST WITHOUT CONTRAST 08/23/2024 9:47 am TECHNIQUE: CT of the chest was performed without the administration of intravenous contrast. Multiplanar reformatted images are provided for review. Automated exposure control, iterative reconstruction, and/or weight based adjustment of the mA/kV was utilized to reduce the radiation dose to as low as reasonably achievable. COMPARISON: Chest x-ray same day, multiple prior chest x-rays. HISTORY: ORDERING SYSTEM PROVIDED HISTORY: Reason for Exam: nodule--recommended FINDINGS: Thyroid is unremarkable. Esophagus is normal in caliber. Heart is normal in size without pericardial effusion. Great vessels are normal in caliber. Moderate atherosclerotic calcifications are noted within the thoracic aorta. Multivessel coronary artery calcifications and/or stents are noted. There are a couple calcified nonenlarged mediastinal and bilateral hilar lymph nodes. No pathologically enlarged mediastinal, hilar or axillary lymph nodes. Trachea and mainstem bronchi are patent. Mild emphysema with scattered bilateral pleural and parenchymal scarring. There are scattered bilateral somewhat nodular ground-glass opacities particularly within the right upper lobe and right middle lobe. A ground-glass opacity within the right anterior upper lobe measures approximately 2.9 cm. A left lower lobe ground-glass nodule measures 1.6 cm. A medial right lower lobe ground-glass nodule measures 1.5 cm. No focal consolidation, pleural effusion or pneumothorax. Couple calcified granulomas within the left lower lobe. Decreased attenuation within the liver is most consistent with hepatic steatosis. There is likely mild splenomegaly. Otherwise, images through the upper abdomen are noncontributory. No aggressive osseous lesions. Mild multilevel degenerative changes throughout the visualized spine. IMPRESSION: Scattered bilateral somewhat nodular ground-glass opacities, particularly within the right upper lobe and right middle lobe, are presumably infectious/inflammatory in etiology. Recommend CT thorax follow-up in 8-12 weeks to ensure resolution. Mild emphysema. Hepatic steatosis. Interpreted by: Chapincito Horta Preliminary Report By: Chapincito Horta Electronically signed By Chapincito Horta Dictated Date: 08/23/2024 9:53:24 AM Prelim Date: 08/23/2024 10:02:57 AM Sign Date: 08/23/2024 10:02:57 AM Ordering Provider: [facility]02-12-2025 Note* Exam Date Time Procedure Performing Provider Status 2/12/25 8:50 AM XR Chest 1 View ROQUE MCALLISTER; Auth (Verified) [id number] ORIGINAL EXAMINATION: ONE XRAY VIEW OF THE CHEST08/23/2024 8:51 am COMPARISON: 11/24/2023 HISTORY: ORDERING SYSTEM PROVIDED HISTORY: Reason for Exam: chest pain FINDINGS: The cardiomediastinal contours are normal. Nodular density projects over the right upper lung, measuring approximately 9 mm. Coarsened lung markings seen. Vascular structures appear within normal limits. There is no consolidation. No pleural fluid or pneumothorax. No aggressive osseous lesions identified. IMPRESSION: 1. 9 mm nodular density projects over the right upper lung. CT advised to exclude a pulmonary nodule. 2. No acute radiographic finding Interpreted by: Roque Mcallister MD Preliminary Report By: Roque Mcallister MD Electronically signed By Roque Mcallister MD Dictated Date: 08/23/2024 8:59:24 AM Prelim Date: 08/23/2024 9:01:21 AM Sign Date: 08/23/2024 9:01:21 AM Ordering Provider: ROSA ELENA PALACIOS [facility]02-12-2025 Note* Exam Date Time Procedure Performing Provider Status 08/23/24 7:17 AM EKG [ED AOH] - CV ROSA ELENA PALACIOS MD; Auth (Verified) ECG Final Report Sinus rhythm Consider left atrial enlargement Electronic Signature: ROSA ELENA PALACIOS MD 08/23/2024 07:26:19 [facility]05-15-2024 Note ORIGINAL EXAMINATION: ONE XRAY VIEW OF THE CHEST 11/24/2023 7:02 pm COMPARISON: 01/24/2023 HISTORY: ORDERING SYSTEM PROVIDED HISTORY: Reason for Exam: Pt c/o bilateral chest pain that started yesterday with SOB. chest pain FINDINGS: The cardiomediastinal silhouette appears normal. There is no focal consolidation. There is no pulmonary edema. There is no evidence of pleural effusion. There is no evidence of pneumothorax. No fracture is identified. IMPRESSION: No acute abnormality is identified. Interpreted by: Chapincito Musa Preliminary Report By: Chapincito Musa Electronically signed By Chapincito Musa Dictated Date: 11/24/2023 7:20:54 PM Prelim Date: 11/24/2023 7:21:09 PM Sign Date: 11/24/2023 7:21:09 PM [facility] Note Sinus rhythm Compared to ECG at 01/24/2023 16:27:41 BORDERLINE ECG Electronic Signature: CATHERINE JARVIS DO 11/24/2023 18:49:57[facility] 07-16-2023 Hospital Discharge instructions Patient Education 01/24/2023 18:08:27 [...] for heavy smokers. These groups offer lectures, waysto change behavior, and peer support. Here are some ways to find a support program: Free national quitline 460-ZIIO-SFD (190-081-0809) Hospital quit-smoking programs [employer] [phone] [employer] [phone] Support at home is important too. Family and friends can offer praise and reassurance. If the smoker in your life finds it hard to quit, encourage them to keep trying. Try wxzk-ucj-nnczakk medicine Nicotine replacement therapy may make it easier to quit. Some aids are available without a prescription. These include a nicotine patch, gum, and lozenges. But it is best to use these under the care of your healthcare provider. The skin patch gives a steady supply of nicotine. Nicotine gum and lozenges give short- time doses of low levels of nicotine. Both methods reduce the craving for cigarettes. If you have nausea, vomiting, dizziness, weakness, or a fast heartbeat, stop using these products.See your healthcare provider. Ask about prescription medicine [...] Clearing the Air from the [employer] at smokefree.gov/sites/default/files/pdf/ltefnkpj-rce-qap-accessible.pdf. 9996-5637 [employer]. [address] [place] [address]. All rights reserved. This information is not intended as a substitute for professional medical care. Always follow yoursumma healthcare professional's instructions. 01/24/2023 18:08:14 Hypertension, Established [...] that stimulate the heart. This includes many oceg-nyx-bfqtrft cold and sinus decongestant pills and sprays, as well as diet pills. Check the warnings about high blood pressure onthe label. Before buying any fdwr-sii-venkqhp medicines or supplements, always ask the pharmacist [...] you. Also, enroll in a stop-smoking program tomake it more likely that you will quit for good. Learn how to handle stress. This is an important part of any program to lower blood pressure. Learnabout relaxation methods like meditation, yoga, or biofeedback. [...] one of these at most pharmacies. The [place] [employer] recommends the following guidelines for [...] the upper part of the arm at heartlevel. Place the middle of the cuff directly [...] appointment as directed. Bring the record of yourhome blood pressure readings to the appointment. When to seek medical advice Call your healthcare provider right away if any of these occur: Blood pressure reaches a systolic (upper number) of 180 or higher OR a diastolic (bottom number) of110 or higher Chest pain or shortness of breath Severe headache Throbbing or rushing sound in the ears Nosebleed Sudden severe pain in your belly (abdomen) Extreme drowsiness, confusion, or fainting Dizziness or spinning sensation (vertigo) Weakness of an arm or leg or one side of the face You have problems speaking or seeing 9324-4643 [employer] [address] [place] [address]. All rights reserved. This information is not intended as a substitute for professional medical care. Always follow yourhealthcare professional's instructions. 01/24/2023 18:07:59 Chest Pain, Uncertain Cause Uncertain Causes of Chest Pain Chest pain can happen for a number of reasons. Sometimes the cause can't be determined. If your condition does not seem serious, and your pain does not appear to be coming from your heart, your healthcare provider may recommend watching it closely. Sometimes the signs of a serious problem take moretime to appear. Many problems not related to [...] Swelling, pain or redness in one leg 9974-2411 [employer]. [address] [place] [address], [place] [address]. All rights reserved. This information is not intended as a substitute for professional medical care. Always follow yourhealthcare professional's instructions. Follow Up Care 01/24/2023 16:25:48 With:cardiology Address:Unknown When:2-4 days Comments:Follow-up as scheduledReturn to ED if symptoms worsenCall to move up appt to this week if possible.Stop smoking now. Take aspirin dailyFollow up for stress testing/ echocardialgram and blood pressure gael With:GUNJAN JIMENEZ Address: [address] [place] [address] [phone] Business (1) When:2-4 days [facility] 07-16-2023 Note ORIGINAL EXAMINATION: ONE XRAY VIEW OF [...] 01/24/2023 5:51:23 PM Ordering Provider: JAVI VORA [facility]07-16-2023 Note ORIGINAL EXAMINATION: ONE XRAY VIEW OF [...] Date: 01/24/2023 5:51:23 PM Ordering Provider: JAVI [facility]01-29-2023 Hospital Discharge instructions Patient Education 08/09/2022 15:59:38 [...] and reduce pain. Don t place ice directlyon your skin. Wrap a cold pack or [...] worsens and is not improved with elevation. 9386-1063 [employer]. [address] [place] [address]. All rights reserved. This information is not intended as a substitute for professional medical care. Always follow yourhealthcare professional's instructions. Follow Up Care 08/09/2022 15:37:17 With:Call Physician Referral Address:Unknown When:2-4 days With:Follow up with primary care provider Address:Unknown When:2-4 days [facility] Johnson 01-29-2023 Emergency department Discharge summary Discharge Instructions Thank you for allowing [facility] to assist you with your healthcare needs. The following is importantdischarge information regarding your hospital visit. Diagnosis from [...] Bilateral, Test Reason: Swelling, Mon-Fri 8am-4:30pm: Call [phone] at 7:30am to schedule a same day [...] and or supplements as they may interact withyour home medications. What How Much When Why Instructions Last Dose Changed acetaminophen-hydrocodone (Menahga 325- 5 mg oral tablet) 1 tab(s) by mouth Every 6 hours as needed for as needed for pain Leg pain Duration: 3 Days Printed Prescription Changed acetaminophen-hydrocodone (Menahga 325- 5 mg oral tablet) 1 tab(s) [...] (a SEET a MIN oh fen and erik CABAN done) Hycet, Lorcet, Menahga, Verdrocet, Vicodin, Xodol, Zamicet What is the [...] Keep the medicine in a place where otherscannot get to it. Selling or giving away [...] where to locate a drug take-back disposal program.If there is no take-back program, flush the unused medicine down the toilet. What happens if I miss a dose? Since this medicine is used for pain, you are not likely to miss a dose. Skip any missed dose if itis almost time for your next dose. Do [...] health department. Make sure any person caring foryou knows where you keep naloxone and how to use it. What should I avoid while taking acetaminophen and hydrocodone? Avoid driving or operating machinery until you know how this medicine will affect you. Dizziness ordrowsiness can cause falls, accidents, or severe injuries. [...] if you have slow breathing with long pauses,blue colored lips, or if you are hard to wake up. In rare cases, acetaminophen may cause a severe skin reaction that can be fatal. This could occur even if you have taken acetaminophen in the past and had no reaction. Stop taking this medicine and call your doctor right away if you have skin redness or a rash that spreads and causes blistering andpeeling. Call your doctor at once if you [...] may report side effects to FDA at 1-061-JWI-7463. What other drugs will affect acetaminophen and [...] affect acetaminophen and hydrocodone, including prescription and urtl-lyk-fdcwcti medicines, vitamins, and herbal products. Not all [...] to ensure that the information provided by [employer]') is accurate, up-to-date, and complete, but no guarantee is made to that effect. Drug information contained herein may be time sensitive. [employer] information has been compiled for use by healthcare practitioners and consumers in the [place] and therefore [employer] does not warrant that uses outside of the [place] are appropriate, unless specifically indicated otherwise. [employer]'s drug information does not endorse drugs, diagnose patients or recommend therapy. Active Implantss drug information isan informational resource designed to assist licensed healthcare practitioners in caring for their p atients and/or to serve consumers viewing this service as a supplement to, and not a substitute for, the expertise, skill, knowledge and judgment of healthcare practitioners. The absence of a warningfor a given drug or drug combination in no way should be construed to indicate that the drug or drug combination is safe, effective or appropriate for any given patient. [employer] does not assume any responsibility for any aspect of healthcare administered with the aid of information [employer] provides. The information contained herein is not intended to cover all possible uses, directions, precautions, warnings, drug interactions, allergic reactions, or adverse effects. If you have questions about the drugs you are taking, check with your doctor, nurse or pharmacist. Copyright 9086-3628 [employer] Version: 16.03. Revision Date: 08/13/2020. Education Materials [...] and reduce pain. Don t place ice directlyon your skin. Wrap a cold pack or [...] worsens and is not improved with elevation. 8427-9863 [employer]. [address] [place] [address], [place] [id number]. All rights reserved. This information is not intended as a substitute for professional medical care. Always follow yourhealthcare professional's instructions. Additional Information VACCINATE! IT SAVES LIVES! Members of the community who have not yet received the COVID-19 vaccine and would like to receive it can visit one of [facility] vaccine clinics. There are many vaccine clinic locations within the [facility]. For locations and available times, please visit [email or web address]. It is important to note that some COVID mobile vaccine clinics are held outdoors and may be canceled in rainy orstormy conditions. To learn more about pediatric vaccinations (ages 5-11), we invite you to visit the [facility] webpage. https://www.[facility].org/pages/3448-Noxgg-Qkrjnjsqssu-Rjcyaovlbm-Efpoo-Bfm stions.htmlTo learn more about the COVID-19 vaccine, we invite you to visit the [facility] website for a list of frequently asked questions. [email or web address]/assets/Ftvxtgfv-tzf-Mzlwvobg/ldpvy-Phcfqhp-Qaaogmadao _Asked-Questions.pdf [facility] Patient [facility] Access Instructions: Stay connected with your healthcare team and access your personal medical information anytime with the [facility] Patient Portal. If you would like a full copy of your medical records please contact the [facility] Medical Records Department Wednesday through Wednesday between 8a.m. and 4:30p.m. Please follow the directions below to access the portal: 1.Access the email account you provided upon registration to the hospital.2.Look for an invitation email from [facility].3.Open the email and access the invitation link: Accept Invitation to [facility]4.Fill in the required greenberg to create your account. Sign into [email or web address] with your username and password that you [...] you will allow to register on the [facility] Patient Portal for access to your information. You can also access the [facility] Patient Portal on the Litesprite. Simply click on Health Records under Risktail and then click on the [facility] logo. HOW TO SAFELY DISPOSE OF PRESCRIPTION MEDICATIONS Please use one of the following methods to safely dispose of your unused medications. 1.Use a drug disposal kit: the drug disposal pouch allows you to safely discard your old and unuseddrugs. Ask your nurse to give you one when you are discharged.2.Visit a local take-back location: Many local pharmacies and police departments have programs that collect old and unwanted prescriptiondrugs. Call your local pharmacy or go to http://admetricks.Hukkster/9V2Zh7l to find one close to you.3.Make use of household items: Use cat litter or old coffee grounds to dispose medications if other options arenot available. Mix your drugs with these household products, seal them in an airtight container andthrow it into the garbage. Call [facility]: [phone] to be sure your drugs can be [...] drowsiness, such as benzodiazepines, also known as benzos,including diazepam and alprazolam, muscle relaxants or sleep aids. Never sell or share prescriptionopioids. This is illegal. Store opioids in a secure place and out of reach of others (including children, family, friends and visitors). The last page(s) of this document has been signed and retained as a CHART COPY Signatures Patient Education Materials R.I.C.E. Medication Leaflets acetaminophen and hydrocodone My discharge plan and instructions have been reviewed and explained to me and I,BOLA OLIVEROS understand my current condition and have read and understand these discharge instructions. I have received a written copy of the plan/instructions. If I have questions, I am aware that I should contact my doctor. 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 Many problems not related to [...] Swelling, pain or redness in one leg 5215-2722 [employer]. [address] [place] [address]. All rights reserved. This information is not intended as a substitute for professional medical care. Always follow yourhealthcare professional's instructions. Follow Up Care 02/15/2022 18:30:39 With:Follow up with primary care provider Address:Unknown When:2-4 days [facility] 08-07-2022 Note ORIGINAL EXAMINATION: ONE XRAY VIEW OF [...] Sign Date: 02/15/2022 7:57:35 PM Ordering Provider: [facility]08-07-2022 Note Discharge Instructions Thank you for allowing [facility] to assist you with your healthcare needs. The following is importantdischarge information regarding your hospital visit. Diagnosis from [...] and or supplements as they may interact withyour home medications. What How Much When Why Instructions Last Dose New predniSONE (predniSONE 10 mg oral tablet) 4 tab(s) by mouth Once a day Duration: 5 Days Printed Prescription Unchanged acetaminophen-hydrocodone (Menahga 325- 5 mg oral tablet) 1 tab(s) [...] the signs of a serious problem take moretime to appear. Many problems not related to [...] Swelling, pain or redness in one leg 5710-7009 [employer]. [address] [place] [address]. All rights reserved. This information is not intended as a substitute for professional medical care. Always follow yourhealthcare professional's instructions. Additional Information VACCINATE! IT SAVES LIVES! Members of the community who have not yet received the COVID-19 vaccine and would like to receive it can visit one of [facility] vaccine clinics. There are many vaccine clinic locations within the [facility]. For locations and available times, please visit [email or web address]. It is important to note that some COVID mobile vaccine clinics are held outdoors and may be canceled in rainy orstormy conditions. To learn more about pediatric vaccinations (ages 5-11), we invite you to visit the [facility] webpage. [email or web address] learn more about the COVID-19 vaccine, we invite you to visit the [facility] website for a list of frequently asked questions. [email or web address] [facility] Patient Portal Access Instructions: Stay connected with your healthcare team and access your personal medical information anytime with the [facility] Patient Portal. If you would like a full copy of your medical records please contact the [facility] Medical Records Department Wednesday through Wednesday between 8a.m. and 4:30p.m. Please follow the directions below to access the portal: 1.Access the email account you provided upon registration to the [facility].2.Look for an invitation email from [facility].3.Open the email and access the invitation link: Accept Invitation to [facility]4.Fill in the required greenberg to create your account. Sign into [email or web address] with your username and password that you [...] you will allow to register on the [facility] Patient Portal for access to your information. You can also access the [facility] Patient Portal on the [employer] abisai. Simply click on Health Records under Risktail and then click on the [employer] logo. HOW TO SAFELY DISPOSE OF PRESCRIPTION MEDICATIONS Please use one of the following methods to safely dispose of your unused medications. 1.Use a drug disposal kit: the drug disposal pouch allows you to safely discard your old and unuseddrugs. Ask your nurse to give you one when you are discharged.2.Visit a local take-back location: Many local pharmacies and police departments have programs that collect old and unwanted prescriptiondrugs. Call your local pharmacy or go to http://admetricks.Hukkster/3X2Bv4i to find one close to you.3.Make use of household items: Use cat litter or old coffee grounds to dispose medications if other options arenot available. Mix your drugs with these household products, seal them in an airtight container andthrow it into the garbage. Call [facility]: [phone] to be sure your drugs can be [...] drowsiness, such as benzodiazepines, also known as benzos,including diazepam and alprazolam, muscle relaxants or sleep aids. Never sell or share prescriptionopioids. This is illegal. Store opioids in a secure place and out of reach of others (including children, family, friends and visitors). The last page(s) of this document has been signed and retained as a CHART COPY Signatures Patient Education Materials Chest Pain, Uncertain Cause Medication Leaflets My discharge plan and instructions have been reviewed and explained to me and I,BOLA OLIVEROS understand my current condition and have read and understand these discharge instructions. I have received a written copy of the plan/instructions. If I have questions, I am aware that I should contact my doctor. 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 Signature: Date/Time: Relationship to Patient: Witness Name/Signature: Date/Time: [facility]08[facility]07[facility]2022 Note ORIGINAL EXAMINATION: ONE XRAY VIEW OF [...] Sign Date: 02/15/2022 7:57:35 PM Ordering Provider: [facility] note Author Felice Baltazar [facility] Note Date/Time April 23, 2025 1 2:21pm [facility] Medical Records Department [address] [place] [address] Pre-Anesthesia Evaluation 04/23/25 1220 MR#: [id number] Acct: [id number] Name: BOLA OLIVEROS Rep #:[id number] : 1965 59 From: Felice Baltazar MD PCP: Dr. Shaniqua Harrington, DO Status: G SDC Y Race: C Location: [place] [address] ASA Classification* ASA Classification ASA Classification: 3 and E Assessment & Plan Anesthesia* Anesthesia Assessment Anesthesia Assessment: Discussed sedation and/or anesthesia options, risks, benefits, and alternatives with patient/parents/legal guardian/POA. Questions invited. The patient/parents/legal guardian/POA seems to understand and agrees to proceedwith anesthesia plan. Reviewed the physical assessment, medical history, allergy history and patient home medications list prior to surgery/procedure/anesthetic and documented any changes. Performed airway and anesthesia risk assessments. Anesthesia Type Anesthesia Type: General Anesthesia Focused Assessment* Temperature: 98.3 F Pulse Rate: 77 Blood Pressure: 149/62 Respiratory Rate: 18 Pulse Ox: 96 Airway Assessment Mouth opens: >3 cm Mallampati Score: II Labs Anesthesia Preop lab: CBC WBC, (4.4-11.0) 11.2 K/mm3 H Today, 10:00 RBC, (4.6-6.2) 4.46 M/mm3 L Today, 10:00 Hgb, (13.0-16.5) 14.0 g/dL Today, 10:00 Hct, (40-54) 40.7 % Today, 10:00 Plt Count, (150-450) 157 K/mm3 Today, 10:00 CHEMISTRY Potassium, (3.3-5.1) 4.2 mmol/L Today, 10:00 Sodium, (133-145) 136 mmol/L Today, 10:00 Magnesium, (1.6-2.6) 2.0 mg/dL 02/02/24, 14:12 Phosphorus, (2.5-4.9) 3.2 mg/dL 02/02/24, 14:12 BUN, (4-19) 7 mg/dL Today, 10:00 Creatinine, (0.70-1.20) 0.82 mg/dL Today, 10:00 Glucose, (70-99) 143 mg/dL H Today, 10:00 COAG PT, (11.7-14.9) 13.3 SECONDS 01/14/24, 09:33 Pre-Assessment Diagnosis/Proposed Procedure Planned Operative Procedure(s): Laparoscopic appendectomy. Anesthesia History Anesthesia History - museum tour guide: Anesthesia History - museum tour guide Hx Hospitalization Any Problems With Anesthesia No 04/23/25 12:11 Cholinesterase deficiency You/Your Family Experience No 04/23/25 12:11 fever (hyperthermia) with Relationship Recent Exposure to Contagious Disease Does patient have nerve No 04/23/25 12:11 stimulator Patient instructed to have No 04/23/25 12:11 device shut off --Does patient have Pacemaker or ICD? When Was Last Pacemaker Check QUESTION #4 FULL TEXT: You/Your Family Experience fever (hyperthermia) with Anesthesia Last Oral Intake Last Oral intake: Last Oral Intake NPO since Meds taken in AM with sips of water? Meds patient instructed to take am of surgery PONV PONV - museum tour guide: PONV - museum tour guide Female HX of Motion Sickness HX of N/V After Surgery Non-Smoker Duration of Surgery greater than 60 minutes Number of Risk Factors PONV Score Height & Weight Height & Weight: Anesthesia: Height & Weight Height 6 ft 04/23/25 12:11 Weight: 137.3 kg 04/23/25 12:11 Body Mass Index (BMI) 41.0 04/23/25 12:11 Respiratory Assessment Respiratory Assessment - museum tour guide: Respiratory Tract Infection Hx - museum tour guide Hx Respiratory Tract Infection STOP Sleep Apnea STOP Sleep Apnea - museum tour guide: STOP Sleep Apnea - museum tour guide Hx Hypertension Yes 04/23/25 12:11 Hx Sleep Apnea Yes 04/23/25 12:11 CPAP No 04/23/25 12:11 BIPAP No 04/23/25 12:11 Do you snore loudly (louder than talking or can be heard Do you often feel tired/ fatigued/ sleepy during daytime? Has anyone observed you stop breathing during sleep? STOP Results Positive 04/23/25 12:11 QUESTION #5 FULL TEXT : Do you snore loudly (louder than talking or can be heard through closed doors)? 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 Specify any problems Hx of Preganancy in last 3 Months Nurse Filling Out Transfusion & Questions: Date: Time: Patient unable to answer at this time (ie. confused, unrespo /Reproduction History /Reproductive History - museum tour guide: /Reproductive Hx- museum tour guide Hx Now No 04/23/25 12:11 Gestational Age (in weeks): EDC: Hx Hx Para Hx Section SAB No 04/23/25 12:11 Active Medications Active Medications: Current Medications Generic Name Dose Route Start Last Admin Trade Name Freq PRN Reason Stop Dose Admin Piperacillin Sod/Tazobactam 50 mls @ 100 mls/hr 04/23/25 11:55 04/23/25 12:09 Sod 3.375 gm/ Sodium Chloride IV 04/23/25 12:24 100 mls/hr X1 ONE Administration PFSH Medical History Dyspnea on exertion Nicotine dependence Obesity Coronary artery disease Vitamin D deficiency Appetite loss 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] Right hand pain SOB (shortness of breath) Fatigue Heartburn Syncope and collapse Pulmonary hypertension BMI 40.0-44.9, adult EtOH dependence Elevated liver function tests Anxiety Insomnia Tobacco dependence Sleep apnea Essential hypertension Chest pain Nocturnal hypoxemia COPD (chronic obstructive pulmonary disease) Home Medications ?Medication ?Instructions ?Recorded ?Last Taken ?Type trazodone 50 mg tablet 150 mg PO QHS PRN insomnia 0 02/08/23 04/22/25 History aspirin 81 mg tablet,delayed 81 mg PO DAILY heart heal th 02/16/23 04/23/25 History release losartan 50 mg tablet 50 mg PO DAILY blood pressur e 03/24/23 04/22/25 History nitroglycerin 0.4 mg sublingual 0.4 mg sublingual Q5M PRN 04/08/23 Unknown Rx tablet Cardiac/Chest Pain #15 tabs clopidogrel 75 mg tablet 75 mg PO DAILY antiplatelet #90 05/22/24 04/23/25 Rx tabs ranolazine 500 mg tablet,extended 500 mg PO BID HEART #60 tabs 11/10/24 04/23/25 Rx release,12 hr metoprolol tartrate 50 mg tablet 50 mg PO BID heart # 180 tabs 02/26/25 04/23/25 Rx atorvastatin 10 mg tablet 10 mg PO QHS cholesterol #90 tabs 04/03/25 04/22/25 Rx magnesium 250 mg tablet 250 mg PO DAILY SUPPLEMENT 1 04/22/25 History multivitamin (Daily Multi-Vitamin 1 tab PO DAILY SUPPL EMENT 04/23/25 04/22/25 History tablet) sertraline 50 mg tablet 50 mg PO DAILY MOOD 04/23/25 04/22/25 History Allergy/AdvReac Type Severity Reaction Status Date / Time No Known Allergies Allergy Verified 04/23/25 08:49 Family History Mother Diabetes Heart disease Sister Pulmonary hypertension Father Cancer stomach Heart disease Surgical History Stented coronary artery Hx of cardiac catheterization (~02/02/24) Hx of plastic surgery Social History household members: spouse Smoking Status: Current every day smoker tobacco type: cigarettes alcohol intake: current alcohol intake frequency: 3 or more drinks per day Alcohol type: beer details: 12 beer substance use type: does not use caffeine: No Review of Systems (Anesthesia) ROS Narrative System reviewed and no additional complaints, except as documented. 04/23/25 1221 <Electronically signed by Felice Baltazar MD > Date _ Felice Herman Signature: Date CC: ~ Signed [facility] Work Phone: Consult note Author Cathy Grissom [facility] Note Date/Time April 23, 2025 2 :18pm [facility] Medical Records Department [address] [place] [address] Anesthesia Postop Eval I 04/23/25 141 MR#: [id number] Acct: [id number] Name: BOLA OLIVEROS Rep #:[id number] : 1965 59 From: Cathy Grissom CRNA PCP: Dr. Shaniqua Harrington, DO Status: G [facility] Y Race: C Location: [place] [address] Anesthesia: Postop Eval I Current Vital Signs Temperature: 97 F Pulse Rate: 101 Blood Pressure: 159/109 Respiratory Rate: 20 Pulse Ox: 97 Oxygen Delivery Method: Nasal Cannula Oxygen Flow Rate (L/min): 8 Assessment Airway patent: Yes Spontaneous unlabored respirations: Yes Mental status: Awake nausea: No Vomiting: No Anesthesia Complication: No Fluid Hydration Crystalloid volume administer (ml): 700 Total IV fluid infused: 700 Progress Note Anesthesia document: Postop Eval 1 completed: Yes 04/23/25 141 <Electronically signed by Cathy gilmore MANAGER MAC> Date _ Cathy Binghamignranjana Signature: Date CC: ~ Signed [facility] Work Phone: Consult note Author Felice Baltazar [facility] Note Date/Time 2025 1 1:08am [facility] Medical Records Department [address] [place] [address] Anesthesia Postop Eval II 04/23/25 142 MR#: [id number] Acct: [id number] Name: BOLA OLIVEROS Rep #:[id number] : 1965 59 From: Felice Baltazar MD PCP: Dr. Shaniqua Harrington, DO Status:RE G SDC Y Race: C Location: [facility] AC- TBA-2 Anesthesia Postop Eval I Sum Postop Eval Completion status Anesthesia document: Postop Eval 1 completed: Yes Anesthesia Postop Eval I Summary Anesthesia Postop Eval I Summary: Anesthesia Postop Eval I: Assessment Summary Airway patent Yes 04/23/25 14:18 MANAGER [email or web address] Spontaneous unlabored Yes 04/23/25 14:18 MANAGER [email or web address] respirations Mental status Awake 04/23/25 14:18 MANAGER [email or web address] nausea No 04/23/25 14:18 MANAGER [email or web address] Vomiting No 04/23/25 14:18 MANAGER [email or web address] Anesthesia Postop Eval I: Fluid Summary Crystalloid volume administer 700 04/23/25 14:18 MANAGER [email or web address] (ml) Colloids volume administered ( ml) Blood Product volume administered (ml) Total IV fluid infused 700 04/23/25 14:18 MANAGER [email or web address] Anesthesia Postop Eval I: Summary Notes Anesthesia Complication No 04/23/25 14:18 MANAGER [email or web address] Anesthesia Complication Comment: Post-operative progress note Anesthesia: Postop Eval II Evaluation Mental status: Awake Pain Level: 2 nausea: No Vomiting: No 04/23/251421 <Electronically signed by Felice Baltazar MD > Date _ Felice Baltazar MD Cosigner Signature: Date CC: ~ Signed [facility] Work Phone: Discharge summary Author Conrad Feliz [facility] April 09, 2023 10:53am Note Date/Time April 09, 2023 10:53am [facility] Medical Records Department [address] [place] [address] Instructions for Home/Discharge Instructions 04/09/23 1052 MR#: [id number] Acct: [id number] Name: BOLA OLIVEROS Rep #:[id number] : 1965 57 From: Conrad Feliz MD PCP: JOY PabloC Status:ADM I NO Discharge Instructions Diet Discharge Diet: Low fat / Low cholesterol Activity May resume sexual activity in: No Restrictions Dressing / Incision Call your doctor if your incision/area has: Continuous Slow Oozing, Sudden Increased Bleeding, Increased Pain/ Swelling, Increased Redness, Foul Smelling Discharge and Swelling at the incision site Call your doctor if you observe: Fever of 101 or Higher, Coldness, Increased Pain and Change in Color Follow Up Care Please Follow Up With: Conrad Feliz MD When: 2-4 weeks Test Results: Test results from this visit will be discussed in further detail at your follow- up appointment, if applicable. Discharge Plan Admission Admit Date/Time: 04/08/23 11:56 Attending Provider: Conrad Feliz Primary Care Provider: Gunjan Jimenez Discharge Orders/Prescriptions Prescriptions: New atorvastatin 10 mg Tablet 10 mg PO QHS Qty: 60 3RF clopidogrel 75 mg Tablet 75 mg PO DAILY Qty: 60 6RF nitroglycerin 0.4 mg Tablet, Sublingual 0.4 mg sublingual Q5M PRN (Reason: Cardiac/Chest Pain) Qty: 15 3RF Continued trazodone 50 mg tablet 150 mg PO QHS PRN (Reason: insomnia) Patient Comments: take 3 tablet by mouth at bedtime if needed for sleep / insomnia buspirone 10 mg tablet 30 mg PO BID Patient Comments: take 2 tablets by mouth three times a day aspirin 81 mg tablet,delayed release (DR/EC) 81 mg PO DAILY amlodipine 10 mg tablet 10 mg PO DAILY Qty: 90 1RF metoprolol tartrate 50 mg tablet 50 mg PO BID Qty: 180 1RF losartan 50 mg tablet 50 mg PO DAILY Referrals / Follow Up: Gunjan Jimenez, RISSA [Primary Care Provider] - Disposition Discharge Orders: Discharge Patient (Routine); Ordered 04/09/23 Ordered By: Dr. Conrad Feliz 04/09/23 1053<Electronically signed by Conrad Feliz MD>Conrad Feliz MD CC: [facility]SE-C Gunjan Jimenez ~ Signed [facility] Work Phone: Discharge summary Author Lloyd Gerard [facility] Note Date/Time April 23, 2025 1 2:14pm [facility] Medical Records Department [address] [place] [address] Emergency Department Summary 04/23/25 MR#: [id number] Acct: [id number] Name: BOLA OLIVEROS Rep #:[id number] : 1965 59 From: Lloyd pierson DO PCP: Dr. Shaniqua Harrington, DO Status:[facility] Location: [facility] A-2 HPI History of Present Illness Chief Complaint: Abd Pain Narrative Narrative: Chief complaint and HPI: 59-year-old male with past medical history of CAD with PCI, HTN, HLD presents for evaluation of right lower quadrant abdominal pain. Onset of symptoms yesterday and radiates into his right testicle. Endorses constipation in which she has taken stool softeners with minimal relief. Endorses nausea. Has a history of constipation. Denies any fever, chills, shortness of breath, chest pain, vomiting, dysuria. No history of kidney stones. Review of systems: See HPI Medications: As listed on the chart Allergies: As listed on the chart PFSH: Per chart Vital signs: As listed on the chart. Reviewed. Physical exam: Gen: A&O x3, NAD Head: Normocephalic, atraumatic Eyes: No sclera icterus, conjunctiva clear ENT: Moist mucous membranes Neck: Trachea midline CV: RRR, no murmurs Resp: Lungs CTA BL, no w/r/c GI: Abd soft, non-distended, tender to palpation in the right lower quadrant andsuprapubic region, no rebound or rigidity : No CVA tenderness. Circumcised penis. No penile tenderness or discharge. Nopenile or testicular swelling. Normal lie and position of the testicles. Right testicle tender to palpation diffusely without masses or skin changes. Cremasteric reflexes intact and equal bilaterally. No rashes. No palpable hernias. Musc: Full ROM, no deformity Skin: Warm, dry Neuro: Alert, oriented, grossly intact, sensation intact Psych: Cooperative, appropriate mood and affect [facility] Medical History Dyspnea on exertion Nicotine dependence Obesity Coronary artery disease Vitamin D deficiency Appetite loss 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] Right hand pain SOB (shortness of breath) Fatigue Heartburn Syncope and collapse Pulmonary hypertension BMI 40.0-44.9, adult EtOH dependence Elevated liver function tests Anxiety Insomnia Tobacco dependence Sleep apnea Essential hypertension Chest pain Nocturnal hypoxemia COPD (chronic obstructive pulmonary disease) Home Medications ?Medication ?Instructions ?Recorded ?Last Taken ?Type trazodone 50 mg tablet 150 mg PO QHS PRN insomnia 0 02/08/23 04/22/25 History aspirin 81 mg tablet,delayed 81 mg PO DAILY heart heal th 02/16/23 04/23/25 History release losartan 50 mg tablet 50 mg PO DAILY blood pressur e 03/24/23 04/22/25 History nitroglycerin 0.4 mg sublingual 0.4 mg sublingual Q5M PRN 04/08/23 Unknown Rx tablet Cardiac/Chest Pain #15 tabs clopidogrel 75 mg tablet 75 mg PO DAILY antiplatelet #90 05/22/24 04/23/25 Rx tabs ranolazine 500 mg tablet,extended 500 mg PO BID HEART #60 tabs 11/10/24 04/23/25 Rx release,12 hr metoprolol tartrate 50 mg tablet 50 mg PO BID heart # 180 tabs 02/26/25 04/23/25 Rx atorvastatin 10 mg tablet 10 mg PO QHS cholesterol #90 tabs 04/03/25 04/22/25 Rx magnesium 250 mg tablet 250 mg PO DAILY SUPPLEMENT 1 04/22/25 History multivitamin (Daily Multi-Vitamin 1 tab PO DAILY SUPPL EMENT 04/23/25 04/22/25 History tablet) sertraline 50 mg tablet 50 mg PO DAILY MOOD 04/23/25 04/22/25 History Allergy/AdvReac Type Severity Reaction Status Date / Time No Known Allergies Allergy Verified 04/23/25 08:49 Family History Mother Diabetes Heart disease Sister Pulmonary hypertension Father Cancer stomach Heart disease Surgical History Stented coronary artery Hx of cardiac catheterization (~02/02/24) Hx of plastic surgery Social History (Updated 03/21/25 @ 16:28 by Chauncey Cerda) household members: spouse Smoking Status: Current every day smoker tobacco type: cigarettes alcohol intake: current alcohol intake frequency: 3 or more drinks per day Alcohol type: beer details: 12 beer substance use type: does not use caffeine: No EXAM Physical Exam Const Vital Signs: 04/23/25 08:49 04/23/25 11:46 Temperature 99.0 F Temperature Source Oral Pulse Rate 86 70 Respiratory Rate 18 18 Blood Pressure 144/72 H 163/63 H Blood Pressure Mean 96 96 Pulse Ox 96 97 Oxygen Delivery Method Room Air Room Air MDM MDM MDM Narrative Medical decision making narrative: 59-year-old male with past medical history of CAD with PCI, HTN, HLD presents for evaluation of right lower quadrant abdominal pain. Onset of symptoms yesterday and radiates into his right testicle. Endorses constipation and nausea. Differential diagnosis includes but is not limited to appendicitis, UTI, urolithiasis, epididymitis, gastroenteritis, constipation. NS bolus, morphine, Zofran ordered for symptoms. Abdominal pain workup ordered including CT abdomen pelvis and testicular ultrasound. CBC with mild leukocytosis 11.2. No anemia. Platelets unremarkable. His CMP relatively unremarkable. Lipase unremarkable. UA negative for UTI. Testicular ultrasound negative for torsion. Small bilateral epididymal cyst and bilateral hydroceles. CT abdomen pelvis shows mild fatty liver. Acute uncomplicated appendicitis. Diverticulosis without diverticulitis. Small fat-containing right inguinal hernia. Patient's symptoms are likely secondary to acute appendicitis. Patient NPO. Zosyn ordered. Patient was updated of the results and the plan for surgery. He confirmed understanding. Patient was discussed with Dr. Zavala who will be taking the patient to the OR. Impression: 1. Acute appendicitis Lab Data Labs: Laboratory Results - last 24 hr 04/23/25 04/23/25 10:00 11:26 WBC 11.2 H RBC 4.46 L Hgb 14.0 Hct 40.7 MCV 91.3 MCH 31.4 MCHC 34.4 RDW Std Deviation 41.7 RDW Coeff of Megan 12.6 Plt Count 157 MPV 10.7 Immature Gran % (Auto) 0.500 Neut % (Auto) 76.9 H Lymph % (Auto) 10.4 L [place] % (Auto) 10.4 H Eos % (Auto) 1.6 Baso % (Auto) 0.2 Absolute Neuts (auto) 8.6 H Absolute Lymphs (auto) 1.17 Nucleated RBC % 0 Sodium 136 Potassium 4.2 Chloride 102 Carbon Dioxide 24.1 Anion Gap 10 BUN 7 Creatinine 0.82 Estim Creat Clear Calc 139.23 Est GFR (MDRD) Non-Af 101 BUN/Creatinine Ratio 8.7 L Glucose 143 H Calcium 9.1 Total Bilirubin 0.98 AST 20 ALT 25 Alkaline Phosphatase 52 Total Protein 7.0 Albumin 4.0 Globulin 3.0 Albumin/Globulin Ratio 1.3 Lipase 25 Urine Color Yellow Urine Clarity Clear Urine pH 7.0 Ur Specific Friendship 1.005 Urine Protein 15 H Urine Glucose (UA) Normal Urine Ketones Negative Urine Occult Blood Negative Urine Nitrite Negative Urine Bilirubin Negative Urine Urobilinogen Normal Ur Leukocyte Esterase Negative Urine RBC 0-5 SEEN Urine WBC 0-5 SEEN Ur Squamous Epith Cells 0 SEEN Urine Bacteria 0 SEEN Urine Mucus RARE Radiography Diagnostic Testing: Clinical Impression(s) from Imaging Studies Abdomen/Pelvis CT 04/23/25 09:57 IMPRESSION: 1. Mild fatty liver. 2. Acute, uncomplicated appendicitis. Significant amount of inflammatory changes shown in the periappendiceal fat. 3. Diverticulosis without diverticulitis. 4. Small fat containing right inguinal hernia. Reading Location: [id number] Testicular Ultrasound 04/23/25 09:57 IMPRESSION: No evidence of testicular torsion. Small bilateral epididymal cysts. Small bilateral hydroceles. Reading Location: [facility] Discharge Plan Triage Chief Complaint: Abd Pain ED Provider: Lloyd Gerard Dx/Rx/DC Orders Prescriptions: No Action trazodone 50 mg tablet 150 mg PO QHS PRN (Reason: insomnia) Patient Comments: take 3 tablet by mouth at bedtime if needed for sleep / insomnia aspirin 81 mg tablet,delayed release (DR/EC) 81 mg PO DAILY losartan 50 mg tablet 50 mg PO DAILY ranolazine 500 mg tablet extended release 12 hr 500 mg PO BID Qty: 60 11RF Patient Comments: PT STATES TAKES 1 TAB QAM nitroglycerin 0.4 mg Tablet, Sublingual 0.4 mg sublingual Q5M PRN (Reason: Cardiac/Chest Pain) Qty: 15 3RF sertraline 50 mg tablet 50 mg PO DAILY multivitamin [Daily Multi-Vitamin] Tablet 1 tab PO DAILY magnesium 250 mg tablet 250 mg PO DAILY clopidogrel 75 mg tablet 75 mg PO DAILY Qty: 90 3RF metoprolol tartrate 50 mg tablet 50 mg PO BID Qty: 180 2RF atorvastatin 10 mg tablet 10 mg PO QHS Qty: 90 3RF Primary Care Provider: Shaniqua Harrington Referrals: Gunjan Jimenez [facility] [Med Staff - [facility] Practice Prof, Internal Medicine] Print Language: Tunisian What to do if you have Problems For any increased pain, shortness of breath, bleeding, nausea or vomiting, chestpain, or any unexpected problems, contact your Primary Care Provider. Call [facility] ([phone]) or report to the closest Emergency Room. Call 911 if necessary. 04/23/25 1214 <Electronically signed by Lloyd Gerard DO> Cosigner Signature (if applicable): CC: Dr. Shaniqua Harrington DO ~ Signed [facility] Work Phone: Discharge summary Author Ace Renteria [facility] Note Date/Time 2025 7 :21am [facility] Medical Records Department [address] [place] [address] Discharge Summary 04/24/25 0717 MR#: [id number] Acct: [id number] Name: BOLA OLIVEROS Rep #:[id number] : 1965 60 From: Ace parekh MD PCP: Dr. Shaniqua Harrington, Status:AD [facility] Location: [address] Providers Date of Admission: 04/23/25 Primary Care Physician: Dr. Shaniqua Harrington DO Reason For Visit: APPENDECTOMY Diagnosis Discharge Diagnosis (1) Acute appendicitis: Status: Acute Code(s): K35.80 - Unspecified acute appendicitis Qualifiers: Acute appendicitis type: unspecified acute appendicitis type Qualified Code(s): K35.80 - Unspecified acute appendicitis Plan: Patient is doing well following laparoscopic appendectomy. Once he tolerates a diet today and gets weaned from his oxygen I will discharge him home Medications at Discharge Home Medications trazodone 50 mg tablet 150 mg PO QHS PRN insomnia 02/08/23 aspirin 81 mg tablet,delayed release 81 mg PO DAILY heart health 02/16/23 losartan 50 mg tablet 50 mg PO DAILY blood pressure 03/24/23 nitroglycerin 0.4 mg sublingual tablet 0.4 mg sublingual Q5M PRN Cardiac/Chest Pain #15 tabs 04/08/23 clopidogrel 75 mg tablet 75 mg PO DAILY antiplatelet #90 tabs 05/22/24 ranolazine 500 mg tablet,extended release,12 hr 500 mg PO BID HEART #60 tabs 11/10/24 metoprolol tartrate 50 mg tablet 50 mg PO BID heart #180 tabs 02/26/25 atorvastatin 10 mg tablet 10 mg PO QHS cholesterol #90 tabs 04/03/25 magnesium 250 mg tablet 250 mg PO DAILY SUPPLEMENT 04/23/25 multivitamin (Daily Multi-Vitamin tablet) 1 tab PO DAILY SUPPLEMENT 04/23/25 sertraline 50 mg tablet 50 mg PO DAILY MOOD 04/23/25 acetaminophen 325 mg tablet 650 mg (2 x 325 mg) PO Q4H PRN PRN Pain 1-10 Or Fever #0 tabs 04/24/25 oxycodone 5 mg tablet 5 - 10 mg (1 - 2 x 5 mg) PO Q4H PRN PRN Pain Score 4-10 5 days #14 tabs 04/24/25 Hospital Course Operations appendectomy Summary of Care Provided Hospital Course: Patient presented with right lower quadrant pain and was diagnosed with acute appendicitis on CT scan. He was immediately taken for surgery and had laparoscopic appendectomy. Following surgery he was tolerate diet and would really like to go home and I discharged him home this morning after tolerating adiet Weight / BMI Weight Weight: 308 lb Body Mass Index (BMI) 41.8 ABG / Lab / Microbiology Data 04/24/25 05:37 04/24/25 05:37 Laboratory: Laboratory Results - last 24 hr 04/23/25 10:00: WBC 11.2 H, RBC 4.46 L, Hgb 14.0, Hct 40.7, MCV 91.3, MCH 31.4, MCHC 34.4, RDW Std Deviation 41.7, RDW Coeff of Megan 12.6, Plt Count 157, MPV 10.7, Immature Gran % (Auto) 0.500, Neut % (Auto) 76.9 H, Lymph % (Auto) 10.4 L,[place] % (Auto) 10.4 H, Eos % (Auto) 1.6, Baso % (Auto) 0.2, Absolute Neuts (auto)8.6 H, Absolute Lymphs (auto) 1.17, Nucleated RBC % 0, Sodium 136, Potassium 4.2, Chloride 102, Carbon Dioxide 24.1, Anion Gap 10, BUN 7, Creatinine 0.82, Estim Creat Clear Calc 139.23, Est GFR (MDRD) Non-Af 101, BUN/Creatinine Ratio 8.7 L, Glucose 143 H, Calcium 9.1, Total Bilirubin 0.98, AST 20, ALT 25, Alkaline Phosphatase 52, Total Protein 7.0, Albumin 4.0, Globulin 3.0, Albumin/Globulin Ratio 1.3, Lipase 25 04/23/25 11:26: Urine Color Yellow, Urine Clarity Clear, Urine pH 7.0, Ur Specific [place] 1.005, Urine Protein 15 H, Urine Glucose (UA) Normal, Urine Ketones Negative, Urine Occult Blood Negative, Urine Nitrite Negative, Urine Bilirubin Negative, Urine Urobilinogen Normal, Ur Leukocyte Esterase Negative, Urine RBC 0-5 SEEN, Urine WBC 0-5 SEEN, Ur Squamous Epith Cells 0 SEEN, Urine Bacteria 0 SEEN, Urine Mucus RARE 04/24/25 05:37: WBC 11.8 H, RBC 4.08 L, Hgb 12.5 L, Hct 38.9 L, MCV 95.3 H, MCH 30.6, MCHC 32.1 D, RDW Std Deviation 45.3 H, RDW Coeff of Megan 12.9, Plt Count 142 L, MPV 11.0, Immature Gran % (Auto) 0.800, Neut % (Auto) 79.4 H, Lymph % (Auto) 9.3 L, [place] % (Auto) 10.1 H, Eos % (Auto) 0.2, Baso % (Auto) 0.2, Absolute Neuts (auto) 9.4 H, Absolute Lymphs (auto) 1.10, Nucleated RBC % 0, Sodium 136, Potassium 4.4, Chloride 103, Carbon Dioxide 23.3, Anion Gap 9, BUN 10, Creatinine 0.89, Estim Creat Clear Calc 127.89, Est GFR (MDRD) Non-Af 98, BUN/Creatinine Ratio 10.9, Glucose 114 H, Calcium 8.5 Radiography Diagnostic Testing: Radiology Impression Abdomen/Pelvis CT 04/23/25 09:57 IMPRESSION: 1. Mild fatty liver. 2. Acute, uncomplicated appendicitis. Significant amount of inflammatory changes shown in the periappendiceal fat. 3. Diverticulosis without diverticulitis. 4. Small fat containing right inguinal hernia. Reading Location: [facility] Testicular Ultrasound 04/23/25 09:57 IMPRESSION: No evidence of testicular torsion. Small bilateral epididymal cysts. Small bilateral hydroceles. Reading Location: [facility] [place] D/C Instructions Discharge Activity: May Not Drive (for 2-3 days or while taking narcotic pain medications) May shower in (days): 1 Lifting Restrictions: 15 lbs for 2 weeks Additional Activity Instructions: Alternate ibuprofen and Tylenol for pain control, oxycodone for breakthrough pain Call your doctor if your incision/area has: Continuous Slow Oozing, Sudden Increased Bleeding, Increased Pain/ Swelling, Increased Redness and Foul Smelling Discharge Call your doctor if you observe: Fever of 101 or Higher Suture Line Care: Avoid Pulling/Pushing and Avoid Pinching/Bending Remove Dressing in: 2 days Cleanse incision/area with: Soap & Water DC O2, CPAP, BIPAP Needs Home O2 Discharge instructions: No Additional Instructions: Keep dressing clean and dry. Change or remove dressing in 2 days. Leave steri strips for 1 week. May protect with a gauze bandaid. Please Follow Up With: Ace Renteria MD When: Please call to schedule 2 week follow up appointment at [phone] Meaningful Use Info Meaningful Use Meaningful Use Diagnoses (Choose all that apply): None applicable Discharge Plan Admission Admit Date/Time: 04/23/25 13:55 Attending Provider: Ace Renteria Primary Care Provider: Shaniqua Harrington Discharge Orders/Prescriptions Prescriptions: New acetaminophen 325 mg Tablet 650 mg PO Q4H PRN PRN (Reason: Pain 1-10 Or Fever) Qty: 0 0RF oxycodone 5 mg Tablet 5 - 10 mg PO Q4H PRN PRN (Reason: Pain Score 4-10) 5 Days Qty: 14 0RF Continued trazodone 50 mg tablet 150 mg PO QHS PRN (Reason: insomnia) Patient Comments: take 3 tablet by mouth at bedtime if needed for sleep / insomnia aspirin 81 mg tablet,delayed release (DR/EC) 81 mg PO DAILY losartan 50 mg tablet 50 mg PO DAILY ranolazine 500 mg tablet extended release 12 hr 500 mg PO BID Qty: 60 11RF Patient Comments: PT STATES TAKES 1 TAB QAM nitroglycerin 0.4 mg Tablet, Sublingual 0.4 mg sublingual Q5M PRN (Reason: Cardiac/Chest Pain) Qty: 15 3RF sertraline 50 mg tablet 50 mg PO DAILY multivitamin [Daily Multi-Vitamin] Tablet 1 tab PO DAILY magnesium 250 mg tablet 250 mg PO DAILY clopidogrel 75 mg tablet 75 mg PO DAILY Qty: 90 3RF metoprolol tartrate 50 mg tablet 50 mg PO BID Qty: 180 2RF atorvastatin 10 mg tablet 10 mg PO QHS Qty: 90 3RF Referrals / Follow Up: Gunjan Jimenez [facility]URSE[facility] [Med Staff - [facility] Practice Prof, Internal Medicine] Disposition Disposition (needs filled in before D/C Order can be placed): Home, Self Care 04/24/25 0721 <Electronically signed by Ace Renteria MD> Cosigner Signature (if applicable): CC: Dr. Ace Renteria MD; Dr. 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 Dyspnea on exertion chronic Essential hypertension chron ic Nicotine dependence chronic Obesity chronic Sleep apnea chronic [facility] Work Phone: Evaluation note* Diagnosis Onset Date Resolution Status Coronary artery disease 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 Dyslipidemia chronic Dyspnea on exertion chronic Essential hypertension chron ic Nicotine dependence chronic Obesity chronic Sleep apnea chronic [facility] Work Phone: Evaluation note* Diagnosis Onset Date Resolution Status Admit Date Acute appendicitis resolved Octobe r 2024 1:55pm [facility] Work Phone: History and physical note Author Ace Renteria [facility] Note Date/Time April 23, 2025 1 2:43pm [facility] Medical Records Department [address] [place] [address] H&P Exam - Surgical 04/23/25 1241 MR#: [id number] Acct: [id number] Name: BOLA OLIVEROS Rep #:[id number] : 1965 59 From: Ace parekh MD PCP: Dr. Shaniqua Harrington, DO Status:[facility] Location: [facility] A-2 HPI - General HPI Narrative BOLA OLIVEROS, is a 59 M who presents with lower abdominal pain. Patient reports the pain started yesterday. He denies fevers or chills. Says the pain is in the right lower quadrant does radiate down to his right testicle. [facility] Medical History Dyspnea on exertion Nicotine dependence Obesity Coronary artery disease Vitamin D deficiency Appetite loss 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] Right hand pain SOB (shortness of breath) Fatigue Heartburn Syncope and collapse Pulmonary hypertension BMI 40.0-44.9, adult EtOH dependence Elevated liver function tests Anxiety Insomnia Tobacco dependence Sleep apnea Essential hypertension Chest pain Nocturnal hypoxemia COPD (chronic obstructive pulmonary disease) Home Medications ?Medication ?Instructions ?Recorded ?Last Taken ?Type trazodone 50 mg tablet 150 mg PO QHS PRN insomnia 0 02/08/23 04/22/25 History aspirin 81 mg tablet,delayed 81 mg PO DAILY heart heal th 02/16/23 04/23/25 History release losartan 50 mg tablet 50 mg PO DAILY blood pressur e 03/24/23 04/22/25 History nitroglycerin 0.4 mg sublingual 0.4 mg sublingual Q5M PRN 04/08/23 Unknown Rx tablet Cardiac/Chest Pain #15 tabs clopidogrel 75 mg tablet 75 mg PO DAILY antiplatelet #90 05/22/24 04/23/25 Rx tabs ranolazine 500 mg tablet,extended 500 mg PO BID HEART #60 tabs 11/10/24 04/23/25 Rx release,12 hr metoprolol tartrate 50 mg tablet 50 mg PO BID heart # 180 tabs 02/26/25 04/23/25 Rx atorvastatin 10 mg tablet 10 mg PO QHS cholesterol #90 tabs 04/03/25 04/22/25 Rx magnesium 250 mg tablet 250 mg PO DAILY SUPPLEMENT 1 04/22/25 History multivitamin (Daily Multi-Vitamin 1 tab PO DAILY SUPPL EMENT 04/23/25 04/22/25 History tablet) sertraline 50 mg tablet 50 mg PO DAILY MOOD 04/23/25 04/22/25 History Allergy/AdvReac Type Severity Reaction Status Date / Time No Known Allergies Allergy Verified 04/23/25 12:41 Family History Mother Diabetes Heart disease Sister Pulmonary hypertension Father Cancer stomach Heart disease Surgical History Stented coronary artery Hx of cardiac catheterization (~02/02/24) Hx of plastic surgery Social History household members: spouse Smoking Status: Current every day smoker tobacco type: cigarettes alcohol intake: current alcohol intake frequency: 3 or more drinks per day Alcohol type: beer details: 12 beer substance use type: does not use caffeine: No ROS Constitutional Constitutional: Denies anorexia, chills, fatigue or fever(s) Eyes Eyes: Denies blurry vision ENT HEENT: Denies abnormal hearing Cardiovascular Cardiovascular: Reports chest pain Respiratory/Chest Respiratory/Chest: Reports dyspnea on exertion; Denies cough Gastrointestinal Gastrointestinal: Reports abdominal pain; Denies change in bowel habits, coffee ground emesis, nausea or vomiting Genitourinary Genitourinary: Denies change in urinary stream or difficulty urinating Musculoskeletal Musculoskeletal: Denies abnormal gait Integumentary Integumentary: Denies jaundice or new lesions Neurologic Neurologic: Denies abnormal gait Psychiatric Psychiatric: Denies anxiety Vital Signs Vital Signs Vital Signs: 04/23/25 08:49 04/23/25 11:46 04/23/25 12:11 Temperature 99.0 F Temperature Source Oral Pulse Rate 86 70 78 Respiratory Rate 18 18 18 Blood Pressure 144/72 H 163/63 H 149/62 H Blood Pressure Mean 96 96 91 Blood Pressure Source Monitor Blood Pressure Position Semi-Fowlers Blood Pressure Location Right Arm Pulse Ox 96 97 97 Oxygen Delivery Method Room Air Room Air Room Air 04/23/25 12:13 04/23/25 12:20 Temperature 98.3 F 98.3 F Temperature Source Pulse Rate 77 77 Respiratory Rate 18 18 Blood Pressure 149/62 H 149/62 H Blood Pressure Mean 91 Blood Pressure Source Blood Pressure Position Blood Pressure Location Pulse Ox 96 96 Oxygen Delivery Method Weight Weight: 302 lb 11.115 oz Body Mass Index (BMI) 41.0 Physical Exam Const oriented x3 and no apparent distress Resp normal respiratory effort Cardio regular rate and regular rhythm GI soft to palpation Palpation: tender RLQ Extremity normal to inspection Results Lab / Micro Data 04/23/25 10:00 04/23/25 10:00 Labs: Laboratory Results - last 24 hr 04/23/25 10:00: WBC 11.2 H, RBC 4.46 L, Hgb 14.0, Hct 40.7, MCV 91.3, MCH 31.4, MCHC 34.4, RDW Std Deviation 41.7, RDW Coeff of Megan 12.6, Plt Count 157, MPV 10.7, Immature Gran % (Auto) 0.500, Neut % (Auto) 76.9 H, Lymph % (Auto) 10.4 L,[place] % (Auto) 10.4 H, Eos % (Auto) 1.6, Baso % (Auto) 0.2, Absolute Neuts (auto)8.6 H, Absolute Lymphs (auto) 1.17, Nucleated RBC % 0, Sodium 136, Potassium 4.2, Chloride 102, Carbon Dioxide 24.1, Anion Gap 10, BUN 7, Creatinine 0.82, Estim Creat Clear Calc 139.23, Est GFR (MDRD) Non-Af 101, BUN/Creatinine Ratio 8.7 L, Glucose 143 H, Calcium 9.1, Total Bilirubin 0.98, AST 20, ALT 25, Alkaline Phosphatase 52, Total Protein 7.0, Albumin 4.0, Globulin 3.0, Albumin/Globulin Ratio 1.3, Lipase 25 04/23/25 11:26: Urine Color Yellow, Urine Clarity Clear, Urine pH 7.0, Ur Specific [place] 1.005, Urine Protein 15 H, Urine Glucose (UA) Normal, Urine Ketones Negative, Urine Occult Blood Negative, Urine Nitrite Negative, Urine Bilirubin Negative, Urine Urobilinogen Normal, Ur Leukocyte Esterase Negative, Urine RBC 0-5 SEEN, Urine WBC 0-5 SEEN, Ur Squamous Epith Cells 0 SEEN, Urine Bacteria 0 SEEN, Urine Mucus RARE Imaging Radiology Impression Abdomen/Pelvis CT 04/23/25 09:57 IMPRESSION: 1. Mild fatty liver. 2. Acute, uncomplicated appendicitis. Significant amount of inflammatory changes shown in the periappendiceal fat. 3. Diverticulosis without diverticulitis. 4. Small fat containing right inguinal hernia. Reading Location: [facility] Testicular Ultrasound 04/23/25 09:57 IMPRESSION: No evidence of testicular torsion. Small bilateral epididymal cysts. Small bilateral hydroceles. Reading Location: [facility] [place] Assessment & Plan Assessment/Plan (1) Acute appendicitis: QUALIFIERS: Acute appendicitis type: unspecified acute appendicitis type Qualified Code(s): K35.80 - Unspecified acute appendicitis PLAN: The patient has right lower quadrant pain and he had a CT scan which showed acute appendicitis. I recommended laparoscopic appendectomy. I discussed the procedure with the patient in detail. I discussed the risks of the procedure such as bleeding, infection, injury to other organs like the bowel, bladder, ureter. I also discussed the increased risk of bleeding as the patient is on aspirin and Plavix. I also discussed the increased risk of heart attack or stroke as the patient has had 8 heart stents in the past and has chestpain at rest. The patient was in the emergency room last month with chest pain and was told that it did not sound like acute coronary syndrome. 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 Ace Renteria MD Pager: [facility] [address] [place] [address] Outpatient Pavilion, [address] [place] [address] Office: 04/23/25 1243 <Electronically signed by Ace Renteria MD> Cosigner Signature (if applicable): CC: Dr. Ace Renteria MD; Dr. Shaniqua Harrington, DO~ Signed [facility] Work Phone: Hospital Discharge instructions No data available for this section [facility] Hospital Discharge instructionsAmbulatory Orders* Phase II, Outpatient Cardiac Rehab Location: None Selected [facility] Work Phone: Instructions* Name Dates Details Patient Instructions Indication:Tobacco user Start:26-Jul-2020 Instruction Type:Provider Instructions for Treatment How to Access Health Informa tion Online using Patient Portal and Cyph[employer] Apps Indication:Tobacco user Start:26-Jul-2020 Instruction Type:Patient Education [...] tion Online using Patient Portal and 3rd Republican Apps Indication:Tobacco user Start:26-Jul-2020 Instruction Type:Patient Education [...] tion Online using Patient Portal and 3rd Republican Apps Indication:Tobacco user Start:10-Oct-2021 Instruction Type:Patient Education Patient Instructions Indication:Tobacco user Start:26-Jul-2020 Instruction Type:Provider Instructions for Treatment How to Access Health Informa tion Online using Patient Portal and 3rd Republican Apps Indication:Tobacco user Start:26-Jul-2020 Instruction Type:Patient Education [...] tion Online using Patient Portal and 3rd Republican Apps Indication:Tobacco user Start:10-Oct-2021 Instruction Type:Patient Education Patient Instructions Indication:Tobacco user Start:26-Jul-2020 Instruction Type:Provider Instructions for Treatment How to Access Health Informa tion Online using Patient Portal and 3rd Republican Apps Indication:Tobacco user Start:26-Jul-2020 Instruction Type:Patient Education [...] tion Online using Patient Portal and 3rd Republican Apps Indication:Tobacco user Start:10-Oct-2021 Instruction Type:Patient Education Patient Instructions Indication:Tobacco user Start:26-Jul-2020 Instruction Type:Provider Instructions for Treatment How to Access Health Informa tion Online using Patient Portal and 3rd Republican Apps Indication:Tobacco user Start:26-Jul-2020 Instruction Type:Patient Education [...] tion Online using Patient Portal and 3rd Republican Apps Indication:Tobacco user Start:13-Feb-2022 Instruction Type:Patient Education Patient Instructions Indication:Tobacco user Start:10-Oct-2021 Instruction Type:Provider Instructions for Treatment How to Access Health Informa tion Online using Patient Portal and 3rd Republican Apps Indication:Tobacco user Start:10-Oct-2021 Instruction Type:Patient Education Patient Instructions Indication:Tobacco user Start:26-Jul-2020 Instruction Type:Provider Instructions for Treatment How to Access Health Informa tion Online using Patient Portal and 3rd Republican Apps Indication:Tobacco user Start:26-Jul-2020 Instruction Type:Patient Education [...] tion Online using Patient Portal and 3rd Republican Apps Indication:Tobacco user Start:13-Feb-2022 Instruction Type:Patient Education Patient Instructions Indication:Tobacco user Start:10-Oct-2021 Instruction Type:Provider Instructions for Treatment How to Access Health Informa tion Online using Patient Portal and 3rd Republican Apps Indication:Tobacco user Start:10-Oct-2021 Instruction Type:Patient Education Patient Instructions Indication:Tobacco user Start:26-Jul-2020 Instruction Type:Provider Instructions for Treatment How to Access Health Informa tion Online using Patient Portal and 3rd Republican Apps Indication:Tobacco user Start:26-Jul-2020 Instruction Type:Patient Education [...] tion Online using Patient Portal and 3rd Republican Apps Indication:Tobacco user Start:20-Mar-2022 Instruction Type:Patient Education Patient Instructions Indication:Tobacco user Start:13-Feb-2022 Instruction Type:Provider Instructions for Treatment How to Access Health Informa tion Online using Patient Portal and 3rd Republican Apps Indication:Tobacco user Start:13-Feb-2022 Instruction Type:Patient Education Patient Instructions Indication:Tobacco user Start:10-Oct-2021 Instruction Type:Provider Instructions for Treatment How to Access Health Informa tion Online using Patient Portal and 3rd Republican Apps Indication:Tobacco user Start:10-Oct-2021 Instruction Type:Patient Education Patient Instructions Indication:Tobacco user Start:26-Jul-2020 Instruction Type:Provider Instructions for Treatment How to Access Health Informa tion Online using Patient Portal and 3rd Republican Apps Indication:Tobacco user Start:26-Jul-2020 Instruction Type:Patient Education [...] tion Online using Patient Portal and 3rd Republican Apps Indication:Tobacco user Start:20-Mar-2022 Instruction Type:Patient Education Patient Instructions Indication:Tobacco user Start:13-Feb-2022 Instruction Type:Provider Instructions for Treatment How to Access Health Informa tion Online using Patient Portal and 3rd Republican Apps Indication:Tobacco user Start:13-Feb-2022 Instruction Type:Patient Education Patient Instructions Indication:Tobacco user Start:10-Oct-2021 Instruction Type:Provider Instructions for Treatment How to Access Health Informa tion Online using Patient Portal and 3rd Republican Apps Indication:Tobacco user Start:10-Oct-2021 Instruction Type:Patient Education Patient Instructions Indication:Tobacco user Start:26-Jul-2020 Instruction Type:Provider Instructions for Treatment How to Access Health Informa tion Online using Patient Portal and 3rd Republican Apps Indication:Tobacco user Start:26-Jul-2020 Instruction Type:Patient Education [...] tion Online using Patient Portal and 3rd Republican Apps Indication:Tobacco user Start:24-Jul-2022 Instruction Type:Patient Education Patient Instructions Indication:Tobacco user Start:24-Jul-2022 Instruction Type:Provider Instructions for Treatment Patient Instructions Indication:Tobacco user Start:20-Mar-2022 Instruction Type:Provider Instructions for Treatment How to Access Health Informa tion Online using Patient Portal and 3rd Republican Apps Indication:Tobacco user Start:20-Mar-2022 Instruction Type:Patient Education Patient Instructions Indication:Tobacco user Start:13-Feb-2022 Instruction Type:Provider Instructions for Treatment How to Access Health Informa tion Online using Patient Portal and 3rd Republican Apps Indication:Tobacco user Start:13-Feb-2022 Instruction Type:Patient Education Patient Instructions Indication:Tobacco user Start:10-Oct-2021 Instruction Type:Provider Instructions for Treatment How to Access Health Informa tion Online using Patient Portal and 3rd Republican Apps Indication:Tobacco user Start:10-Oct-2021 Instruction Type:Patient Education Patient Instructions Indication:Tobacco user Start:26-Jul-2020 Instruction Type:Provider Instructions for Treatment How to Access Health Informa tion Online using Patient Portal and 3rd Republican Apps Indication:Tobacco user Start:26-Jul-2020 Instruction Type:Patient Education [...] tion Online using Patient Portal and 3rd Republican Apps Indication:Tobacco user Start:24-Jul-2022 Instruction Type:Patient Education Patient Instructions Indication:Tobacco user Start:24-Jul-2022 Instruction Type:Provider Instructions for Treatment Patient Instructions Indication:Tobacco user Start:20-Mar-2022 Instruction Type:Provider Instructions for Treatment How to Access Health Informa tion Online using Patient Portal and [employer] Indication:Tobacco user Start:20-Mar-2022 Instruction Type:Patient Education Patient Instructions Indication:Tobacco user Start:13-Feb-2022 Instruction Type:Provider Instructions for Treatment How to Access Health Informa tion Online using Patient Portal and [employer] Apps Indication:Tobacco user Start:13-Feb-2022 Instruction Type:Patient Education Patient Instructions Indication:Tobacco user Start:10-Oct-2021 Instruction Type:Provider Instructions for Treatment How to Access Health Informa tion Online using Patient Portal and [employer] Apps Indication:Tobacco user Start:10-Oct-2021 Instruction Type:Patient Education Patient Instructions Indication:Tobacco user Start:26-Jul-2020 Instruction Type:Provider Instructions for Treatment How to Access Health Informa tion Online using Patient Portal and [employer] Apps Indication:Tobacco user Start:26-Jul-2020 Instruction Type:Patient Education [...] tion Online using Patient Portal and [employer] Apps Indication:Tobacco user Start:24-Jul-2022 Instruction Type:Patient Education Patient Instructions Indication:Tobacco user Start:24-Jul-2022 Instruction Type:Provider Instructions for Treatment Patient Instructions Indication:Tobacco user Start:20-Mar-2022 Instruction Type:Provider Instructions for Treatment How to Access Health Informa tion Online using Patient Portal and [employer] Apps Indication:Tobacco user Start:20-Mar-2022 Instruction Type:Patient Education Patient Instructions Indication:Tobacco user Start:13-Feb-2022 Instruction Type:Provider Instructions for Treatment How to Access Health Informa tion Online using Patient Portal and [employer] Apps Indication:Tobacco user Start:13-Feb-2022 Instruction Type:Patient Education Patient Instructions Indication:Tobacco user Start:10-Oct-2021 Instruction Type:Provider Instructions for Treatment How to Access Health Informa tion Online using Patient Portal and [employer] Apps Indication:Tobacco user Start:10-Oct-2021 Instruction Type:Patient Education Patient Instructions Indication:Tobacco user Start:26-Jul-2020 Instruction Type:Provider Instructions for Treatment How to Access Health Informa tion Online using Patient Portal and [employer] Apps Indication:Tobacco user Start:26-Jul-2020 Instruction Type:Patient Education [...] tion Online using Patient Portal and [employer] Apps Indication:Tobacco user Start:24-Jul-2022 Instruction Type:Patient Education Patient Instructions Indication:Tobacco user Start:24-Jul-2022 Instruction Type:Provider Instructions for Treatment Patient Instructions Indication:Tobacco user Start:20-Mar-2022 Instruction Type:Provider Instructions for Treatment How to Access Health Informa tion Online using Patient Portal and [employer] Apps Indication:Tobacco user Start:20-Mar-2022 Instruction Type:Patient Education Patient Instructions Indication:Tobacco user Start:13-Feb-2022 Instruction Type:Provider Instructions for Treatment How to Access Health Informa tion Online using Patient Portal and [employer] Apps Indication:Tobacco user Start:13-Feb-2022 Instruction Type:Patient Education Patient Instructions Indication:Tobacco user Start:10-Oct-2021 Instruction Type:Provider Instructions for Treatment How to Access Health Informa tion Online using Patient Portal and [employer] Apps Indication:Tobacco user Start:10-Oct-2021 Instruction Type:Patient Education Patient Instructions Indication:Tobacco user Start:26-Jul-2020 Instruction Type:Provider Instructions for Treatment How to Access Health Informa tion Online using Patient Portal and [employer] Apps Indication:Tobacco user Start:26-Jul-2020 Instruction Type:Patient Education [...] tion Online using Patient Portal and [employer] Apps Indication:Insomnia, persistent Start:16-Dec-2022 Instruction Type:Patient Education How to Access Health Informa tion Online using Patient Portal and [employer] Apps Indication:Tobacco user Start:24-Jul-2022 Instruction Type:Patient Education Patient Instructions Indication:Tobacco user Start:24-Jul-2022 Instruction Type:Provider Instructions for Treatment Patient Instructions Indication:Tobacco user Start:20-Mar-2022 Instruction Type:Provider Instructions for Treatment How to Access Health Informa tion Online using Patient Portal and [employer] Apps Indication:Tobacco user Start:20-Mar-2022 Instruction Type:Patient Education Patient Instructions Indication:Tobacco user Start:13-Feb-2022 Instruction Type:Provider Instructions for Treatment How to Access Health Informa tion Online using Patient Portal and [employer] Apps Indication:Tobacco user Start:13-Feb-2022 Instruction Type:Patient Education Patient Instructions Indication:Tobacco user Start:10-Oct-2021 Instruction Type:Provider Instructions for Treatment How to Access Health Informa tion Online using Patient Portal and [employer] Apps Indication:Tobacco user Start:10-Oct-2021 Instruction Type:Patient Education Patient Instructions Indication:Tobacco user Start:26-Jul-2020 Instruction Type:Provider Instructions for Treatment How to Access Health Informa tion Online using Patient Portal and [employer] Apps Indication:Tobacco user Start:26-Jul-2020 Instruction Type:Patient Education [...] tion Online using Patient Portal and [employer] Apps Indication:Insomnia, persistent Start:16-Dec-2022 Instruction Type:Patient Education How to Access Health Informa tion Online using Patient Portal and [employer] Apps Indication:Tobacco user Start:24-Jul-2022 Instruction Type:Patient Education Patient Instructions Indication:Tobacco user Start:24-Jul-2022 Instruction Type:Provider Instructions for Treatment Patient Instructions Indication:Tobacco user Start:20-Mar-2022 Instruction Type:Provider Instructions for Treatment How to Access Health Informa tion Online using Patient Portal and [employer] Apps Indication:Tobacco user Start:20-Mar-2022 Instruction Type:Patient Education Patient Instructions Indication:Tobacco user Start:13-Feb-2022 Instruction Type:Provider Instructions for Treatment How to Access Health Informa tion Online using Patient Portal and [employer] Apps Indication:Tobacco user Start:13-Feb-2022 Instruction Type:Patient Education Patient Instructions Indication:Tobacco user Start:10-Oct-2021 Instruction Type:Provider Instructions for Treatment How to Access Health Informa tion Online using Patient Portal and [employer] Apps Indication:Tobacco user Start:10-Oct-2021 Instruction Type:Patient Education Patient Instructions Indication:Tobacco user Start:26-Jul-2020 Instruction Type:Provider Instructions for Treatment How to Access Health Informa tion Online using Patient Portal and [employer] Apps Indication:Tobacco user Start:26-Jul-2020 Instruction Type:Patient Education [...] tion Online using Patient Portal and [employer] Apps Indication:Insomnia, persistent Start:16-Dec-2022 Instruction Type:Patient Education How to Access Health Informa tion Online using Patient Portal and [employer] Apps Indication:Tobacco user Start:24-Jul-2022 Instruction Type:Patient Education Patient Instructions Indication:Tobacco user Start:24-Jul-2022 Instruction Type:Provider Instructions for Treatment Patient Instructions Indication:Tobacco user Start:20-Mar-2022 Instruction Type:Provider Instructions for Treatment How to Access Health Informa tion Online using Patient Portal and [employer] Apps Indication:Tobacco user Start:20-Mar-2022 Instruction Type:Patient Education Patient Instructions Indication:Tobacco user Start:13-Feb-2022 Instruction Type:Provider Instructions for Treatment How to Access Health Informa tion Online using Patient Portal and [employer] Apps Indication:Tobacco user Start:13-Feb-2022 Instruction Type:Patient Education Patient Instructions Indication:Tobacco user Start:10-Oct-2021 Instruction Type:Provider Instructions for Treatment How to Access Health Informa tion Online using Patient Portal and [employer] Apps Indication:Tobacco user Start:10-Oct-2021 Instruction Type:Patient Education Patient Instructions Indication:Tobacco user Start:26-Jul-2020 Instruction Type:Provider Instructions for Treatment How to Access Health Informa tion Online using Patient Portal and [employer] Apps Indication:Tobacco user Start:26-Jul-2020 Instruction Type:Patient Education [...] tion Online using Patient Portal and [employer] Apps Indication:Insomnia, persistent Start:16-Dec-2022 Instruction Type:Patient Education How to Access Health Informa tion Online using Patient Portal and [employer] Republican Apps Indication:Tobacco user Start:24-Jul-2022 Instruction Type:Patient Education Patient Instructions Indication:Tobacco user Start:24-Jul-2022 Instruction Type:Provider Instructions for Treatment Patient Instructions Indication:Tobacco user Start:20-Mar-2022 Instruction Type:Provider Instructions for Treatment How to Access Health Informa tion Online using Patient Portal and [employer] Apps Indication:Tobacco user Start:20-Mar-2022 Instruction Type:Patient Education Patient Instructions Indication:Tobacco user Start:13-Feb-2022 Instruction Type:Provider Instructions for Treatment How to Access Health Informa tion Online using Patient Portal and [employer] Apps Indication:Tobacco user Start:13-Feb-2022 Instruction Type:Patient Education Patient Instructions Indication:Tobacco user Start:10-Oct-2021 Instruction Type:Provider Instructions for Treatment How to Access Health Informa tion Online using Patient Portal and [employer] Apps Indication:Tobacco user Start:10-Oct-2021 Instruction Type:Patient Education Patient Instructions Indication:Tobacco user Start:26-Jul-2020 Instruction Type:Provider Instructions for Treatment How to Access Health Informa tion Online using Patient Portal and [employer] Apps Indication:Tobacco user Start:26-Jul-2020 Instruction Type:Patient Education [...] tion Online using Patient Portal and [employer] Apps Indication:Insomnia, persistent Start:16-Dec-2022 Instruction Type:Patient Education How to Access Health Informa tion Online using Patient Portal and [employer] Apps Indication:Tobacco user Start:24-Jul-2022 Instruction Type:Patient Education Patient Instructions Indication:Tobacco user Start:24-Jul-2022 Instruction Type:Provider Instructions for Treatment Patient Instructions Indication:Tobacco user Start:20-Mar-2022 Instruction Type:Provider Instructions for Treatment How to Access Health Informa tion Online using Patient Portal and [employer] Apps Indication:Tobacco user Start:20-Mar-2022 Instruction Type:Patient Education Patient Instructions Indication:Tobacco user Start:13-Feb-2022 Instruction Type:Provider Instructions for Treatment How to Access Health Informa tion Online using Patient Portal and [employer] Apps Indication:Tobacco user Start:13-Feb-2022 Instruction Type:Patient Education Patient Instructions Indication:Tobacco user Start:10-Oct-2021 Instruction Type:Provider Instructions for Treatment How to Access Health Informa tion Online using Patient Portal and [employer] Apps Indication:Tobacco user Start:10-Oct-2021 Instruction Type:Patient Education Patient Instructions Indication:Tobacco user Start:26-Jul-2020 Instruction Type:Provider Instructions for Treatment How to Access Health Informa tion Online using Patient Portal and [employer] Apps Indication:Tobacco user Start:26-Jul-2020 Instruction Type:Patient Education [...] tion Online using Patient Portal and [employer] Apps Indication:Insomnia, persistent Start:16-Dec-2022 Instruction Type:Patient Education How to Access Health Informa tion Online using Patient Portal and [employer] Apps Indication:Tobacco user Start:24-Jul-2022 Instruction Type:Patient Education Patient Instructions Indication:Tobacco user Start:24-Jul-2022 Instruction Type:Provider Instructions for Treatment Patient Instructions Indication:Tobacco user Start:20-Mar-2022 Instruction Type:Provider Instructions for Treatment How to Access Health Informa tion Online using Patient Portal and [employer] Apps Indication:Tobacco user Start:20-Mar-2022 Instruction Type:Patient Education Patient Instructions Indication:Tobacco user Start:13-Feb-2022 Instruction Type:Provider Instructions for Treatment How to Access Health Informa tion Online using Patient Portal and [employer] Apps Indication:Tobacco user Start:13-Feb-2022 Instruction Type:Patient Education Patient Instructions Indication:Tobacco user Start:10-Oct-2021 Instruction Type:Provider Instructions for Treatment How to Access Health Informa tion Online using Patient Portal and [employer] Apps Indication:Tobacco user Start:10-Oct-2021 Instruction Type:Patient Education Patient Instructions Indication:Tobacco user Start:26-Jul-2020 Instruction Type:Provider Instructions for Treatment How to Access Health Informa tion Online using Patient Portal and [employer] Apps Indication:Tobacco user Start:26-Jul-2020 Instruction Type:Patient Education [...] tion Online using Patient Portal and [employer] Apps Indication:Insomnia, persistent Start:16-Dec-2022 Instruction Type:Patient Education How to Access Health Informa tion Online using Patient Portal and [employer] Apps Indication:Tobacco user Start:24-Jul-2022 Instruction Type:Patient Education Patient Instructions Indication:Tobacco user Start:24-Jul-2022 Instruction Type:Provider Instructions for Treatment Patient Instructions Indication:Tobacco user Start:20-Mar-2022 Instruction Type:Provider Instructions for Treatment How to Access Health Informa tion Online using Patient Portal and [employer] Apps Indication:Tobacco user Start:20-Mar-2022 Instruction Type:Patient Education Patient Instructions Indication:Tobacco user Start:13-Feb-2022 Instruction Type:Provider Instructions for Treatment How to Access Health Informa tion Online using Patient Portal and [employer] Apps Indication:Tobacco user Start:13-Feb-2022 Instruction Type:Patient Education Patient Instructions Indication:Tobacco user Start:10-Oct-2021 Instruction Type:Provider Instructions for Treatment How to Access Health Informa tion Online using Patient Portal and [employer] Apps Indication:Tobacco user Start:10-Oct-2021 Instruction Type:Patient Education Patient Instructions Indication:Tobacco user Start:26-Jul-2020 Instruction Type:Provider Instructions for Treatment How to Access Health Informa tion Online using Patient Portal and [employer] Apps Indication:Tobacco user Start:26-Jul-2020 Instruction Type:Patient Education [...] tion Online using Patient Portal and [employer] Republican Apps Indication:Insomnia, persistent Start:16-Dec-2022 Instruction Type:Patient Education How to Access Health Informa tion Online using Patient Portal and 3[employer] Republican Apps Indication:Tobacco user Start:24-Jul-2022 Instruction Type:Patient Education Patient Instructions Indication:Tobacco user Start:24-Jul-2022 Instruction Type:Provider Instructions for Treatment Patient Instructions Indication:Tobacco user Start:20-Mar-2022 Instruction Type:Provider Instructions for Treatment How to Access Health Informa tion Online using Patient Portal and [employer] Apps Indication:Tobacco user Start:20-Mar-2022 Instruction Type:Patient Education Patient Instructions Indication:Tobacco user Start:13-Feb-2022 Instruction Type:Provider Instructions for Treatment How to Access Health Informa tion Online using Patient Portal and 3[employer] Republican Apps Indication:Tobacco user Start:13-Feb-2022 Instruction Type:Patient Education Patient Instructions Indication:Tobacco user Start:10-Oct-2021 Instruction Type:Provider Instructions for Treatment How to Access Health Informa tion Online using Patient Portal and 3[employer] Republican Apps Indication:Tobacco user Start:10-Oct-2021 Instruction Type:Patient Education Patient Instructions Indication:Tobacco user Start:26-Jul-2020 Instruction Type:Provider Instructions for Treatment How to Access Health Informa tion Online using Patient Portal and [employer] Republican Apps Indication:Tobacco user Start:26-Jul-2020 Instruction Type:Patient Education [...] tion Online using Patient Portal and [employer] Apps Indication:Insomnia, persistent Start:16-Dec-2022 Instruction Type:Patient Education How to Access Health Informa tion Online using Patient Portal and [employer] Republican Apps Indication:Tobacco user Start:24-Jul-2022 Instruction Type:Patient Education Patient Instructions Indication:Tobacco user Start:24-Jul-2022 Instruction Type:Provider Instructions for Treatment Patient Instructions Indication:Tobacco user Start:20-Mar-2022 Instruction Type:Provider Instructions for Treatment How to Access Health Informa tion Online using Patient Portal and [employer] Apps Indication:Tobacco user Start:20-Mar-2022 Instruction Type:Patient Education Patient Instructions Indication:Tobacco user Start:13-Feb-2022 Instruction Type:Provider Instructions for Treatment How to Access Health Informa tion Online using Patient Portal and 3[employer] Republican Apps Indication:Tobacco user Start:13-Feb-2022 Instruction Type:Patient Education Patient Instructions Indication:Tobacco user Start:10-Oct-2021 Instruction Type:Provider Instructions for Treatment How to Access Health Informa tion Online using Patient Portal and 3[employer] Apps Indication:Tobacco user Start:10-Oct-2021 Instruction Type:Patient Education Patient Instructions Indication:Tobacco user Start:26-Jul-2020 Instruction Type:Provider Instructions for Treatment How to Access Health Informa tion Online using Patient Portal and [employer] Apps Indication:Tobacco user Start:26-Jul-2020 Instruction Type:Patient Education [...] note No data available for this section [facility] Progress note Author Ace Renteria [facility] Note Date/Time 2025 7 :17am [facility] Medical Records Department [address] [place] [address] Progress Note - Surgery 04/24/25 0716 MR#: [id number] Acct: [id number] Name: BOLA OLIVEROS Rep #:[id number] : [id number] 60 From: Ace parekh MD PCP: Dr. Shaniqua Harrington, DO Status:AD M SYBIL Location: PR3 [id number] Subjective Subjective Patient reports he is doing well. He reports his abdominal pain is much improved since yesterday. He denies nausea or vomiting. Objective Data Objective Data Vital Signs: Vital Signs Temp Pulse Resp BP Pulse Ox O2 Del Method O2 Flow Rate 98 F 89 18 114/68 96 Nasal Cannula 3 04/24/25 03:45 04/24/25 03:45 04/24/25 03:45 04/24/25 03:45 04/24/25 03:45 04/24/25 03:45 04/24/25 03:45 Oxygen Flow Rate (L/min) 3 Oxygen Delivery Method Nasal Cannula Weight: 308 lb Body Mass Index (BMI) 41.8 Intake & Output: Intake and Output for Last 24 Hours 04/22/25 04/23/25 04/24/25 23:59 23:59 23:59 Intake Total 2093 / 2093 1050 / 1050 Output Total 250 / 250 Balance 2088 / 2088 800 / 800 Lab / Micro Data 04/24/25 05:37 04/24/25 05:37 Labs: Laboratory Results - last 24 hr 04/23/25 10:00: WBC 11.2 H, RBC 4.46 L, Hgb 14.0, Hct 40.7, MCV 91.3, MCH 31.4, MCHC 34.4, RDW Std Deviation 41.7, RDW Coeff of Megan 12.6, Plt Count 157, MPV 10.7, Immature Gran % (Auto) 0.500, Neut % (Auto) 76.9 H, Lymph % (Auto) 10.4 L,[place] % (Auto) 10.4 H, Eos % (Auto) 1.6, Baso % (Auto) 0.2, Absolute Neuts (auto)8.6 H, Absolute Lymphs (auto) 1.17, Nucleated RBC % 0, Sodium 136, Potassium 4.2, Chloride 102, Carbon Dioxide 24.1, Anion Gap 10, BUN 7, Creatinine 0.82, Estim Creat Clear Calc 139.23, Est GFR (MDRD) Non-Af 101, BUN/Creatinine Ratio 8.7 L, Glucose 143 H, Calcium 9.1, Total Bilirubin 0.98, AST 20, ALT 25, Alkaline Phosphatase 52, Total Protein 7.0, Albumin 4.0, Globulin 3.0, Albumin/Globulin Ratio 1.3, Lipase 25 04/23/25 11:26: Urine Color Yellow, Urine Clarity Clear, Urine pH 7.0, Ur Specific [place] 1.005, Urine Protein 15 H, Urine Glucose (UA) Normal, Urine Ketones Negative, Urine Occult Blood Negative, Urine Nitrite Negative, Urine Bilirubin Negative, Urine Urobilinogen Normal, Ur Leukocyte Esterase Negative, Urine RBC 0-5 SEEN, Urine WBC 0-5 SEEN, Ur Squamous Epith Cells 0 SEEN, Urine Bacteria 0 SEEN, Urine Mucus RARE 04/24/25 05:37: WBC 11.8 H, RBC 4.08 L, Hgb 12.5 L, Hct 38.9 L, MCV 95.3 H, MCH 30.6, MCHC 32.1 D, RDW Std Deviation 45.3 H, RDW Coeff of Megan 12.9, Plt Count 142 L, MPV 11.0, Immature Gran % (Auto) 0.800, Neut % (Auto) 79.4 H, Lymph % (Auto) 9.3 L, [place] % (Auto) 10.1 H, Eos % (Auto) 0.2, Baso % (Auto) 0.2, Absolute Neuts (auto) 9.4 H, Absolute Lymphs (auto) 1.10, Nucleated RBC % 0, Sodium 136, Potassium 4.4, Chloride 103, Carbon Dioxide 23.3, Anion Gap 9, BUN 10, Creatinine 0.89, Estim Creat Clear Calc 127.89, Est GFR (MDRD) Non-Af 98, BUN/Creatinine Ratio 10.9, Glucose 114 H, Calcium 8.5 Radiography Diagnostic Testing: Radiology Impression Abdomen/Pelvis CT 04/23/25 09:57 IMPRESSION: 1. Mild fatty liver. 2. Acute, uncomplicated appendicitis. Significant amount of inflammatory changes shown in the periappendiceal fat. 3. Diverticulosis without diverticulitis. 4. Small fat containing right inguinal hernia. Reading Location: [facility] Testicular Ultrasound 04/23/25 09:57 IMPRESSION: No evidence of testicular torsion. Small bilateral epididymal cysts. Small bilateral hydroceles. Reading Location: [facility] Physical Exam Const oriented x3 and no apparent distress Resp normal respiratory effort GI soft to palpation and non-tender Assessment & Plan Assessment/Plan (1) Acute appendicitis: QUALIFIERS: Acute appendicitis type: unspecified acute appendicitis type Qualified Code(s): K35.80 - Unspecified acute appendicitis PLAN: Patient is doing well following laparoscopic appendectomy. Once he tolerates a diet today and gets weaned from his oxygen I will discharge him home 04/24/25 8517 <Electronically signed by Ace Renteria MD> Cosigner Signature (if applicable): CC: ~ Signed [facility] Work Phone: Reason for referral (narrative)No reason for referral information availableWC[facility] Work Phone: Family History No Family History Records FoundUnknown Family Member Name Dates Details Father Comments:stomach [...] Status:Active Sister 1 Comments:pulmonary hypertens ion Status:Active Relationship Condition Age at Onset Recorded Date/T neva mother Diabetes mellitus Unknown Cardiac disease Unknown sister Pulmonary hypertension Unknown father Malignant neoplasm Unknown Instructions Name Dates Details Tobacco user : [...] tion Online using Patient Portal and 3rd Republican Apps Indication:Tobacco user Start:26-Jul-2020 Instruction Type:Patient Education [...] Informa tion Online using Patient Portal and [employer] Republican Apps Indication:Tobacco user Start:26-Jul-2020 Instruction Type:Patient Education [...] Purpose Advance Directives No Advanced Directives Records Found Advance Directive Response Recorded Date/ Time Living Will No February 17, 2018 8:40pm Power of Project Management Professional No February 17 8:40pm Advance Directive Response Recorded Date/ Time Advance Directives No March 8:42am Living Will No April 08, 2023 8:42am Power of Project Management Professional No March 8:42am Advance Directive Response Recorded Date/ Time Advance Directives No March 7:42am Living Will No April 08, 2023 7:42am Power of Project Management Professional No March 7:42am Advance Directive Response Recorded Date/ Time Do you have a Healthcare Power of Project Management Professional? No March 21, 2025 4:29pm Advance Directives No February 01 8:47am Advance Directive Response Recorded Date/ Time Do you have a Healthcare Power of Project Management Professional? No March 21, 2025 4:29pm Do you have a Healthcare Power of Project Management Professional? No April 23, 2025 3:45pm Advance Directives No February 01 8:47am Chief Complaint and Reason for Visit Chief Complaint xray ELEVATED D-DIMER, R/O PE Chief Complaint xray ELEVATED D-DIMER, R/O PE CHEST PAIN CP (TONY) CHEST PAIN SOB LEXISCAN CHEST PAIN SOB LEXISCAN Amb Documentation 4 week fu abn stress Reason for Visit Chest pain Coronary artery disease Essential hypertension Nicotine dependence Obesity Sleep apnea Coronary artery disease Dyspnea on exertion Essential hypertension Nicotine dependence Obesity Sleep apnea Chief Complaint S/P [facility] 03/2023 E ORDERS Dizziness and giddiness Amb Documentation Reason for Visit Coronary artery dise ase Dyslipidemia Dyspnea on exertion Essential hypertension Nicotine dependence Obesity Sleep apnea Chief Complaint Admit Date chest pain March 21, 2025 4:04pm Chief Complaint Admit Date chest pain March 21, 2025 4:04pm PREOP April 23, 2025 1 2:38pm APPENDECTOMY April 23, 2025 1 2:41pm APPENDECTOMY April 23, 2025 1 :55pm APPENDECTOMY 2025 7 :16am Reason for Visit Admit Date Acute appendicitis April 23, 2025 1 :55pm Additional Source Comments Care Team (unrecognized sect ion and content) Care Team Personnel Name: PHYSICIAN, NOT RECORDED Member Role: Primary Care Physician Care Team Related Persons Name: NONE, Care Team Personnel Name: PHYSICIAN, NOT RECORDED Member Role: Primary Care Physician Name: OG JOHN Position: AH Resident Member Role: Resident Address: Address: [address] [facility] ED Resident [place], [place] [address] Care Team Related Persons Name: NONE, Care Team Personnel Name: PHYSICIAN, NOT RECORDED Member Role: Primary Care Physician Care Team Related Persons Name: NONE, (unrecognized sect ion and content) No Status Records FoundNo Status Records FoundNo Status Records FoundNo Status Records FoundNo Status Records Found INFORMATION SOURCE (unrecogn ized section and content) DATE CREATED AUTHOR 07/25/2022 [facility] DATE CREATED AUTHOR AUTHOR'S ORGANIZ ATION 01/10/2023 [facility] DATE CREATED AUTHOR AUTHOR'S ORGANIZ ATION 11/30/2023 [facility] ([place]) DATE CREATED AUTHOR AUTHOR'S ORGANIZ ATION 09/01/2024 [facility] DATE CREATED AUTHOR AUTHOR'S ORGANIZ ATION 05/24/2025 [facility] Care Teams (unrecognized sec tion and content) Team Status: Active Member Role Status Dates No Primary Care Physician Family Provider Active Gunjan Jimenez NP-[place] Primary Care Provider Active Team Status: Inactive Member Role Status Dates Tanja Bell NP, COMMUNITY HEALTH NURSE-C Primary Care Provider Active Dr. Denton Oneal MD Attending Provider Active Team Status: Inactive Member Role Status Dates RISSA Pablo Primary Care Provi franko, Attending Provider, Referring Provider Active Team Status: Active Member Role Status Dates RISSA Pablo Primary Care Provider Active Dr. Conrad Feliz MD Attending Provider Active Team Status: Inactive Member Role Status Dates RISSA Pablo Primary Care Provider, Referring Provider Active Dr. Conrad Feliz MD Attending Provider Active Team Status: Active Member Role Status Dates Gunjan Jimenez NP-[place] Primary Care Provider Active Dr. Conrad Feliz MD Attending Provider , Referring Provider, Other Provider Active Team Status: Active Member Role Status Dates RISSA Pablo Primary Care Provider Active Nellie Belcher RN Attending Provider Active Team Status: Inactive Member Role Status Dates Gunjan Jimenez , COMMUNITY HEALTH NURSE-C Primary Care Provider Active Dr. Conrad Feliz MD Attending Provider, Referring Pr ovider Active Team Status: Inactive Member Role Status Dates Gunjan Jimenez COMMUNITY HEALTH NURSE-C Primary Care Provider Active Dr. Conrad Feliz MD Admit Provider, At tending Provider, Referring Provider Active Team Status: Active Member Role Status Dates Gunjan Jimenez , COMMUNITY HEALTH NURSE-C Primary Care Provider Active Dr. Reggie Banerjee MD Attending Provider Active Team Status: Active Member Role Status Dates Gunjan Jimenez , COMMUNITY HEALTH NURSE-C Primary Care Provider Active Ama Bush COMMUNITY HEALTH NURSE, COMMUNITY HEALTH NURSE-C Attending Provider Active Team Status: Inactive Member Role Status Dates Gunjan Jimenez COMMUNITY HEALTH NURSE-C Primary Care Provider Active Ama Bush COMMUNITY HEALTH NURSE, COMMUNITY HEALTH NURSE-C Attending Provider, Referring P rovider Active Team Status: Active Member Role/Relationship Status Dates Gunjan Jimenez , COMMUNITY HEALTH NURSE-C Primary Care Provider Active Team Status: Inactive Member Role/Relationship Status Dates Gunjan Jimenez , COMMUNITY HEALTH NURSE-C Primary Care Provider Active Start: March 21, 2025 End: March 21, 2025 Dr. Kanu Villafana , Emergency Provider Active S tart: March 21, 2025 End: March 21, 2025 Team Status: Active Member Role/Relationship Status Dates Dr. Shaniqua Harrington DO Primary care physician Active Team Status: Inactive Member Role/Relationship Status Dates Gunjan Jimenez COMMUNITY HEALTH NURSE-C Primary care physician Active Start: March 21, 2025 End: March 21, 2025 Dr. Kanu Villafana DO Attending physician Active Start: March 21, 2025 End: March 21, 2025 Dr. Kanu Villafana DO Emergency Departmen t Physician Active Start: March 21, 2025 End: March 21, 2025 Team Status: Active Member Role/Relationship Status Dates Dr. Shaniqua Harrington DO Primary care physician Active Start: April 23, 2025 Dr. Denton Oneal MD Attending physician Active Start: April 23, 2025 Dr. Denton Oneal MD Referring Provider Active S tart: April 23, 2025 Team Status: Active Member Role/Relationship Status Dates Dr. Lloyd Gerard DO Emergency Department Physician Active Start: April 23, 2025 Dr. Shaniqua Harrington DO Primary care physician Active Start: April 23, 2025 Dr. Ace Renteria MD Attending physician Active Start: April 23, 2025 Dr. Ace Renteria MD Nurse Practitioner Active Start: April 23, 2025 Team Status: Inactive Member Role/Relationship Status Dates Dr. Lloyd Gerard DO Emergency Department Physician Active Start: April 23, 2025 End: 2025 Dr. Shaniqua Harrington DO Primary care physician Active Start: April 23, 2025 End: 2025 Dr. Ace Renteria MD Admitting physician Active Start: April 23, 2025 End: 2025 Dr. Ace Renteria MD Attending physician Active Start: April 23, 2025 End: 2025 Team Status: Active Member Role/Relationship Status Dates Dr. Lloyd Gerard DO Emergency Department Physician Active Start: 2025 Dr. Shaniqua Harrington DO Primary care physician Active Start: 2025 Dr. Ace Renteria MD Admitting physician Active Start: 2025 Dr. Ace Renteria MD Attending physician Active Start: 2025 Dr. Ace Renteria MD Nurse Practitioner Active Start: 2025 Goals (unrecognized section and content) Goals may be documented in a n alternate section FOR RECORDS PERTAINING TO PATIENTS WHO ARE [...] BE BASED ON THE PRIMARY CLINICAL RECORDS. [employer] provides no warranty or guarantee of the accuracy or completeness of information in this document.
[2025-06-15] MEDS: Lactated Ringers 1,000 ML 15 ML IV (07:16)
--- NOTE | 2025-06-15 07:24 | PCM.PRE.AN2 ---
ASA Classification* ASA Classification ASA Classification: 3 Assessment & Plan Anesthesia* Anesthesia Assessment Anesthesia Assessment: Discussed sedation and/or anesthesia options, risks, benefits, and alternatives with patient/parents/legal guardian/POA. Questions invited. The patient/parents/legal guardian/POA seems to understand and agrees to proceed with anesthesia plan. Reviewed the physical assessment, medical history, allergy history and patient home medications list prior to surgery/procedure/anesthetic and documented any changes. Performed airway and anesthesia risk assessments. Anesthesia Type Anesthesia Type: MAC Anesthesia Focused Assessment* Temperature: 97.8 F Pulse Rate: 85 Blood Pressure: 133/70 Respiratory Rate: 18 Pulse Ox: 97 Airway Assessment Mouth opens: >3 cm Mallampati Score: II Labs Anesthesia Preop lab: CBC WBC, (4.4-11.0) 8.3 K/mm3 05/21/25, 18:08 RBC, (4.6-6.2) 4.51 M/mm3 L 05/21/25, 18:08 Hgb, (13.0-16.5) 13.9 g/dL 05/21/25, 18:08 Hct, (40-54) 40.7 % 05/21/25, 18:08 Plt Count, (150-450) 151 K/mm3 05/21/25, 18:08 CHEMISTRY Potassium, (3.3-5.1) 5.0 mmol/L 06/04/25, 10:41 Sodium, (133-145) 138 mmol/L 06/04/25, 10:41 Magnesium, (1.6-2.6) 2.0 mg/dL 02/02/24, 14:12 Phosphorus, (2.5-4.9) 3.2 mg/dL 02/02/24, 14:12 BUN, (4-19) 6 mg/dL 06/04/25, 10:41 Creatinine, (0.70-1.20) 0.79 mg/dL 06/04/25, 10:41 Glucose, (70-99) 194 mg/dL H 06/04/25, 10:41 COAG PT, (11.7-14.9) 13.3 SECONDS 01/14/24, 09:33 Pre-Assessment Diagnosis/Proposed Procedure Planned Operative Procedure(s): COLONOSCOPY Anesthesia History Anesthesia History - security program manager: Anesthesia History - security program manager Hx Hospitalization Yes: APPENDECTOMY 05/21/2025 06/12/25 11:53 Any Problems With Anesthesia No 06/12/25 11:53 Cholinesterase deficiency No 06/12/25 11:53 You/Your Family Experience No 06/12/25 11:53 fever (hyperthermia) with Relationship Recent Exposure to Contagious No 06/15/25 07:02 Disease Does patient have nerve No 06/12/25 11:53 stimulator Patient instructed to have device shut off --Does patient have Pacemaker No 06/15/25 07:02 or ICD? When Was Last Pacemaker Check QUESTION #4 FULL TEXT: You/Your Family Experience fever (hyperthermia) with Anesthesia Last Oral Intake Last Oral intake: Last Oral Intake NPO since 04:30 06/15/25 07:02 Meds taken in AM with sips of Yes 06/15/25 07:02 water? Meds patient instructed to metoprolol 06/15/25 07:02 take am of surgery PONV PONV - security program manager: PONV - security program manager Female No 06/12/25 11:53 HX of Motion Sickness No 06/12/25 11:53 HX of N/V After Surgery No 06/12/25 11:53 Non-Smoker No 06/12/25 11:53 Duration of Surgery greater No 06/12/25 11:53 than 60 minutes Number of Risk Factors PONV Score Height & Weight Height & Weight: Anesthesia: Height & Weight Height 5 ft 11 in 06/15/25 07:02 Weight: 136 kg 06/15/25 07:02 Body Mass Index (BMI) 41.8 06/15/25 07:02 Respiratory Assessment Respiratory Assessment - security program manager: Respiratory Tract Infection Hx - security program manager Hx Respiratory Tract Infection No 06/12/25 11:53 STOP Sleep Apnea STOP Sleep Apnea - security program manager: STOP Sleep Apnea - security program manager Hx Hypertension Yes: CONTROLLED ON MED 06/12/25 11:53 Hx Sleep Apnea Yes: NO MASK USED 06/12/25 11:53 CPAP No 06/12/25 11:53 BIPAP No 06/12/25 11:53 Do you snore loudly (louder than talking or can be heard Do you often feel tired/ fatigued/ sleepy during daytime? Has anyone observed you stop breathing during sleep? STOP Results Positive 06/12/25 11:53 QUESTION #5 FULL TEXT : Do you snore loudly (louder than talking or can be heard through closed doors)? Tobacco Use History Tobacco Use History - security program manager: Tobacco Use History - security program manager Tobacco Use Smoking Status Current every day smoker 06/12/25 11:53 Hx Tobacco Use Yes 06/12/25 11:53 Years Smoking Packs Smoked per Day Smoking Cessation Date was within the last 15 years Hx Smoking Cessation Date Hx Smoking Cessation Counseling Hematologic Medial History Hematologic Hx - security program manager: Hematologic Medical Hx - loss prevention representative Hx of Blood Transfusion No 06/12/25 11:53 Hx of Transfusion in last 3 No 06/12/25 11:53 Months Date of Last Transfusion (if within last 3 months) Ever experience any problems No 06/12/25 11:53 with transfusion(s)? Specify any problems Hx of Preganancy in last 3 N/A 06/12/25 11:53 Months Nurse Filling Out Transfusion VCHRISTIN 06/12/25 11:53 & Questions: Date: 06/12/25 06/12/25 11:53 Time: 11:55 06/12/25 11:53 Patient unable to answer at this time (ie. confused, unrespo /Reproduction History /Reproductive History - security program manager: /Reproductive Hx- security program manager Hx Now No 06/12/25 11:53 Gestational Age (in weeks): EDC: Hx Hx Para Hx Section SAB No 06/12/25 11:53 Does the father of the baby or his family experience fever w Father of the baby Malignant Hypertension history comment Active Medications Active Medications: Current Medications Generic Name Dose Route Start Last Admin Trade Name Freq PRN Reason Stop Dose Admin Lactated Ringer's 1,000 mls @ 15 mls/hr 06/15/25 06:45 06/15/25 07:16 IV 15 mls/hr .Q48H ISAI Administration PFSH Medical History Wears glasses Alcohol use Arthritis DVT (deep venous thrombosis) Excessive bleeding Back pain Seizures Gastric reflux Smoker Shortness of breath on exertion History of echocardiogram History of stress test Cardiology follow-up encounter History of irregular heartbeat Acute appendicitis Dyspnea on exertion Nicotine dependence Obesity Coronary artery disease Vitamin D deficiency Appetite loss 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] Right hand pain SOB (shortness of breath) Fatigue Heartburn Syncope and collapse Pulmonary hypertension BMI 40.0-44.9, adult EtOH dependence Elevated liver function tests Anxiety Insomnia Tobacco dependence Sleep apnea Essential hypertension Chest pain Nocturnal hypoxemia COPD (chronic obstructive pulmonary disease) Home Medications ?Medication ?Instructions ?Recorded ?Last Taken ?Type aspirin 81 mg tablet,delayed 81 mg PO DAILY heart health 02/16/23 06/09/25 History release losartan 50 mg tablet 50 mg PO DAILY blood pressure 03/24/23 06/14/25 History nitroglycerin 0.4 mg sublingual 0.4 mg sublingual Q5M PRN 04/08/23 Unknown Rx tablet Cardiac/Chest Pain #15 tabs metoprolol tartrate 50 mg tablet 50 mg PO BID heart #180 tabs 02/26/25 06/15/25 Rx magnesium 250 mg tablet 250 mg PO DAILY SUPPLEMENT 04/23/25 06/14/25 History multivitamin (Daily Multi-Vitamin 1 tab PO DAILY SUPPLEMENT 04/23/25 06/14/25 History tablet) sertraline 50 mg tablet 50 mg PO DAILY MOOD 04/23/25 06/14/25 History trazodone 50 mg tablet 150 mg PO QHS insomnia 06/04/25 06/14/25 History clopidogrel 75 mg tablet 75 mg PO DAILY antiplatelet #90 06/11/25 06/09/25 Rx tabs atorvastatin 20 mg tablet 20 mg PO QHS cholesterol #90 tabs 06/12/25 06/14/25 Rx Allergy/AdvReac Type Severity Reaction Status Date / Time No Known Allergies Allergy Verified 06/15/25 06:59 Family History Mother Diabetes Heart disease Sister Pulmonary hypertension Father Cancer stomach Heart disease Surgical History History of colonoscopy History of laparoscopic appendectomy Stented coronary artery Hx of cardiac catheterization (~02/02/24) Hx of plastic surgery Social History household members: spouse Smoking Status: Current every day smoker tobacco type: cigarettes alcohol intake: current alcohol intake frequency: 3 or more drinks per day Alcohol type: beer details: 12 beer substance use type: does not use caffeine: No Review of Systems (Anesthesia) ROS Narrative System reviewed and no additional complaints, except as documented.
--- NOTE | 2025-06-15 08:02 | PCM.HP.BLA ---
History and Physical Date of Admission: 06/15/25 Intake Vital Signs 05/21/2517:47 06/01/2514:58 Height 6 ft 6 ft BP 122/67 H Blood Pressure Location Rt brachial Position Sitting Respiration 19 H Pulse 86 Pulse Source Monitor Pulse Oximetry (%) 98 Oxygen Delivery Method room air Intake Visit Reasons: ABDOMINAL PAIN Chief Complaint: s/p appy/abdominal pain Is patient in pain?: Yes (bloated/abdominal pain/soreness d/t surgery/hernia) Allergies No Known Allergies Allergy (Verified 06/01/25 15:00) Medications ?Medication ?Instructions ?Recorded ?Confirmed ?Type trazodone 50 mg tablet 150 mg PO QHS PRN insomnia 02/08/23 06/01/25 History aspirin 81 mg tablet,delayed 81 mg PO DAILY heart health 02/16/23 06/01/25 History release losartan 50 mg tablet 50 mg PO DAILY blood pressure 03/24/23 06/01/25 History nitroglycerin 0.4 mg sublingual 0.4 mg sublingual Q5M PRN 04/08/23 06/01/25 Rx tablet Cardiac/Chest Pain #15 tabs clopidogrel 75 mg tablet 75 mg PO DAILY antiplatelet #90 05/22/24 06/01/25 Rx tabs metoprolol tartrate 50 mg tablet 50 mg PO BID heart #180 tabs 02/26/25 06/01/25 Rx atorvastatin 10 mg tablet 10 mg PO QHS cholesterol #90 tabs 04/03/25 06/01/25 Rx magnesium 250 mg tablet 250 mg PO DAILY SUPPLEMENT 04/23/25 06/01/25 History multivitamin (Daily Multi-Vitamin 1 tab PO DAILY SUPPLEMENT 04/23/25 06/01/25 History tablet) sertraline 50 mg tablet 50 mg PO DAILY MOOD 04/23/25 06/01/25 History PFSH Medical History Acute appendicitis Dyspnea on exertion Nicotine dependence Obesity Coronary artery disease Vitamin D deficiency Appetite loss 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] Right hand pain SOB (shortness of breath) Fatigue Heartburn Syncope and collapse Pulmonary hypertension BMI 40.0-44.9, adult EtOH dependence Elevated liver function tests Anxiety Insomnia Tobacco dependence Sleep apnea Essential hypertension Chest pain Nocturnal hypoxemia COPD (chronic obstructive pulmonary disease) Surgical History History of laparoscopic appendectomy Stented coronary artery Hx of cardiac catheterization (~02/02/24) Hx of plastic surgery Family History Mother Diabetes Heart disease Sister Pulmonary hypertension Father Cancer stomach Heart disease Social History household members: spouse Smoking Status: Current every day smoker tobacco type: cigarettes alcohol intake: current alcohol intake frequency: 3 or more drinks per day Alcohol type: beer details: 12 beer substance use type: does not use caffeine: No HPI HPI HPI: Patient is a 60-year-old male known to me for a past appendectomy. The patient reports that he has been having difficulty having bowel movements. He says he has to strain very hard to push them out but they are not hard. ROS General General: Yes fatigue; No weight change, appetite, colon cancer, breast cancer or weakness HEENT HEENT: No difficulty swallowing, eye injury, eye surgery, swollen glands or hoarseness Endo Endocrine: No thyroid disease, diabetes mellitus, thyroid cancer, Hair loss, heat intolerance or cold intolerance Skin Skin: No rash or changing moles Musc Musculoskeletal: No back problems, arthritis, rheumatoid arthritis, gout or joint pain Cardio Cardiovascular: Yes heart disease, high blood pressure and shortness of breath with exertion; No murmur, pacemaker, atrial fibrillation, heart attack, heart stent, palpitations or chest pain Psych Psychiatric: No depression, anxiety or hearing voices Resp Respiratory: Yes shortness of breath, Yes sleep apnea, No cough, No COPD, No asthma, No emphysema and No wheezing Gastro Gastrointestinal: No abdominal pain, No nausea or vomiting, No diarrhea, No constipation, No blood in stool, No acid reflux, No hemorrhoids, No ulcers, No gallbladder problem and No black,tarry stools Bj Hematologic: No blood thinners, No blood disorders, No bleeding, No anemia and No blood clots Neuro Neurologic: No system reviewed and no additional complaints, except as documented, No as per HPI, No abnormal gait, No abnormal hearing, No abnormal movements, No abnormal speech, No behavioral changes, No burning sensations, No confusion, No convulsions, No disequilibrium, No dizziness, No localized weakness, No frequent falls, No headache(s), No lack of coordination, No loss of vision, No memory loss, No numbness, No other visual disturbances, No radicular pain, No restless legs, No sensory deficit, No syncope, No tingling, No tremor(s), No weakness and No other Exam Const General: cooperative Orientation: alert and oriented x3 HENMT Head: normal to inspection Neck Neck: normal visual inspection and full ROM Chest Chest palpation & inspection: normal inspection of the chest Resp Effort & Inspection: normal respiratory effort Auscultation: clear to auscultation bilaterally Cardio Rate: regular rate Rhythm: regular rhythm GI Inspection: non-distended Palpation: soft, hernia ventral and nontender Skin General: no rashes or lesions noted Neuro General: patient alert and patient oriented x3 Extrem General: full ROM Psych Appearance: grossly normal Mental Status: mental status grossly normal Assessment and Plan Assessment and Plan (1) Ventral incisional hernia without obstruction or gangrene: Status: Acute Plan: The patient has an incisional hernia at the port site above the umbilicus. This was confirmed on CT scan. The patient would like to hold off on repairing this until after we figure out why his bowels are having issues. (2) Change in bowel habits: Status: Acute Plan: The patient notes that he has been straining a lot to have bowel movements. He thinks this is why the hernia may have formed. He says that his bowel movements are soft but he has to push very hard and this is a new change. He would like a colonoscopy to evaluate. His last colonoscopy was 13 years ago. I explained endoscopy in detail to the patient. I explained the risks including but not limited to stroke or heart attack with anesthesia, perforation of the GI tract, bleeding, infection. I explained that any of these could necessitate further emergency surgery. The patient understands and all questions were answered sufficiently. The patient wishes to proceed with procedure. Ace Renteria MD Pager: [facility] [address] [place] [address], [address] [place] [address] Office: I have examined the patient and the H&P has been reviewed. There are no clinical changes since date of exam.
[2025-06-15] MEDS: Lidocaine 1% (5 ml sdv) 5 ML Vial IV (08:08)
--- NOTE | 2025-06-15 08:26 | OP.PROVAT_ITS ---
06/15/2025 Shaniqua Harrington [address] [place] [address] Re : Colonoscopy procedure for Bola Pike Dear Dr. Harrington This procedure was performed on Sunday, June 15, 2025. My impressions and recommendations are as follows: Impressions : - The entire examined colon is normal on direct and retroflexion views. - No specimens collected. Recommendations : - Discharge patient to home. - Resume previous diet. - Continue present medications. - Repeat colonoscopy in 10 years for screening purposes. My findings are described in the full procedure note, which is enclosed. If I can be of further assistance, please feel free to contact me at Doctor phone number(s): , Work: . Sincerely, Ace Renteria MD 06/15/2025 8:25:54 AM This report has been signed electronically.
--- NOTE | 2025-06-15 08:26 | OP.COLON_ITS ---
Patient Name: Bola Pike Procedure Date: 06/15/2025 8:01 AM Date of : 1965 Age: 60 Procedure: Colonoscopy Indications: Change in bowel habits Providers: Ace Renteria MD Referring MD: Shaniqua Harrington Medicines: Propofol per Anesthesia Patient Profile: This is a 60 year old male. Refer to note in patient chart for documentation of history and physical. Last Colonoscopy: several years ago. Complications: No immediate complications. Procedure: Pre-Anesthesia Assessment: - Prior to the procedure, a History and Physical was performed, and patient medications and allergies were reviewed. The patient's tolerance of previous anesthesia was also reviewed. The risks and benefits of the procedure and the sedation options and risks were discussed with the patient. All questions were answered, and informed consent was obtained. Prior Anticoagulants: The patient has taken no anticoagulant or antiplatelet agents. After reviewing the risks and benefits, the patient was deemed in satisfactory condition to undergo the procedure. After I obtained informed consent, the scope was passed under direct vision. Throughout the procedure, the patient's blood pressure, pulse, and oxygen saturations were monitored continuously. The Colonoscope was introduced through the anus and advanced to the terminal ileum, with identification of the appendiceal orifice and IC valve. The colonoscopy was performed without difficulty. The patient tolerated the procedure well. The quality of the bowel preparation was good. The ileocecal valve, appendiceal orifice, and rectum were photographed. Scope In: 8:15:56 AM Scope Withdrawal Time 0 hours 2 minutes 10 seconds Scope Out: 8:23:01 AM Total Procedure Duration Time 0 hours 7 minutes 5 seconds Findings: The entire examined colon appeared normal on direct and retroflexion views. Impression: - The entire examined colon is normal on direct and retroflexion views. - No specimens collected. Recommendation: - Discharge patient to home. - Resume previous diet. - Continue present medications. - Repeat colonoscopy in 10 years for screening purposes. Procedure Code(s): --- Professional --- 96336, Colonoscopy, flexible; diagnostic, including collection of specimen(s) by brushing or washing, when performed (separate procedure) Diagnosis Code(s): --- Professional --- R19.4, Change in bowel habit CPT copyright 2021 [employer]. All rights reserved. The codes documented in this report are preliminary and upon glass bead maker review may be revised to meet current compliance requirements. Ace Renteria MD 06/15/2025 8:25:54 AM This report has been signed electronically. Number of Addenda: 0 Note Initiated On: 06/15/2025 8:01 AM
--- NOTE | 2025-06-15 08:35 | PCM.POST.ANE ---
Anesthesia: Postop Eval I Current Vital Signs Temperature: 97.8 F Pulse Rate: 85 Blood Pressure: 110/60 Respiratory Rate: 16 Pulse Ox: 93 Oxygen Delivery Method: Room Air Assessment Airway patent: Yes Spontaneous unlabored respirations: Yes Mental status: Awake and Calm nausea: No Vomiting: No Anesthesia Complication: No Fluid Hydration Crystalloid volume administer (ml): 300 Total IV fluid infused: 300 Progress Note Anesthesia document: Postop Eval 1 completed: Yes
== END 2025-06-15 09:16 | disposition home or self-care (01) ==
LOC: EN 06:32 → AC 06:34
PROVIDERS: PCP Internal Medicine; Referring Provider Internal Medicine; Visit Provider Surgery
PROC: 0DJD8ZZ Inspection of Lower Intestinal Tract, Via Natural or Artificial Opening Endoscopic (ICD-10-PCS; CPT 45378; principal; 2025-06-15 07:55)
DX: R19.4 Change in bowel habit (principal); I50.9 Heart failure, unspecified; I11.0 Hypertensive heart disease with heart failure; J44.9 Chronic obstructive pulmonary disease, unspecified; K43.2 Incisional hernia without obstruction or gangrene; I25.10 Atherosclerotic heart disease of native coronary artery without angina pectoris; F17.210 Nicotine dependence, cigarettes, uncomplicated; Z90.49 Acquired absence of other specified parts of digestive tract; Z79.899 Other long term (current) drug therapy; Z79.02 Long term (current) use of antithrombotics/antiplatelets
CPT/HCPCS: 45378; 94640